=== PATIENT | female | born 1940 | race Caucasian/White ===

== ENCOUNTER 2016-06-16 19:05 | Emergency (ER) | payer OTHER, MEDICAID ==
[2016-06-16 19:06] VITALS: BMI 20.9
[2016-06-16 20:11] VITALS: O2SAT 99
[2016-06-16] MEDS ORDERED: Sodium Chloride 0.9% 500 ML IV ONE ×2 (20:11→20:40)
--- NOTE | 2016-06-16 20:13 | C.PDOC ---
History Of Present Illness 76 y/o female presents to the ED with complains of upper back discomfort for the past 3 days, positionally and digitally reproducible. Pt denies SOB, cough, weakness, numbness, incontinence or any other complaints. Time Seen by Provider: 06/16/16 20:07 Chief Complaint (Nursing): Back Pain History Per: Patient History/Exam Limitations: no limitations Onset/Duration Of Symptoms: Days Current Symptoms Are (Timing): Still Present Severity: Mild Associated Symptoms: None Recent travel outside of the [place]: No Past Medical History Reviewed: Historical Data, Nursing Documentation, Vital Signs Vital Signs: Last Vital Signs Temp 97.8 F 06/16/16 20:00 Pulse 73 06/16/16 20:00 Resp 18 06/16/16 20:00 BP 143/82 06/16/16 20:00 Pulse Ox 99 06/16/16 20:58 - Medical History PMH: Anxiety, Arthritis, Bipolar Disorder, Bronchitis, CAD, Depression, Diabetes , Fractures (L leg), Gastritis, HTN, Peripheral Edema, Pneumonia, Pneumothorax ( effusion) Surgical History: (x 2) - [facility] Procedures CLOSED ENDOSCOPIC BIOPSY OF LARGE INTESTINE (08/31/13) DRAINAGE OF RIGHT LOWER LOBE BRONCHUS, ENDO, DIAGN (08/03/15) DRAINAGE OF RIGHT MIDDLE LOBE BRONCHUS, ENDO, DIAGN (08/03/15) DRAINAGE OF SPINAL CANAL, PERCUTANEOUS APPROACH, DIAGNOSTIC (08/03/15) ESOPHAGOGASTRODUODENOSCOPY [EGD] W/CLOSED BIOPSY (08/31/13) INSERT INTERCOSTAL CATH (03/15/14) INSERTION OF ENDOTRACHEAL AIRWAY INTO TRACHEA, VIA OPENING (08/03/15) INSERTION OF INFUSION DEV INTO SUP VENA CAVA, PERC APPROACH (08/03/15) OTHER PLEURAL INCISION (03/15/14) REMOVAL OF FB NOS (05/25/13) RESPIRATORY VENTILATION, GREATER THAN 96 CONSECUTIVE HOURS (08/03/15) TRANSFUSE NONAUT PLATELETS IN PERIPH VEIN, PERC (08/03/15) Family History: States: Unknown Family Hx - Social History Hx Tobacco Use: No Hx Alcohol Use: No Hx Substance Use: No - Immunization History Hx Tetanus Toxoid Vaccination: No Hx Influenza Vaccination: Yes Hx Pneumococcal Vaccination: Yes Review Of Systems Except As Marked, All Systems Reviewed And Found Negative. Respiratory: Negative for: Cough, Shortness of Breath Genitourinary: Negative for: Incontinence Musculoskeletal: Positive for: Back Pain Neurological: Negative for: Weakness, Numbness Physical Exam - Physical Exam Appears: Non-toxic, No Acute Distress, Other (thin, elderly, appears younger than stated age) Skin: Warm, Dry, No Rash Head: Atraumatic, Normacephalic Neck: Normal ROM, Supple Chest: Symmetrical Cardiovascular: Rhythm Regular, No Murmur Respiratory: Normal Breath Sounds, No Rales, No Rhonchi, No Wheezing Gastrointestinal/Abdominal: Soft Back: No Vertebral Tenderness, Paraspinal Tenderness (bilateral thoracic ) Extremity: Bilateral: Atraumatic Neurological/Psych: Oriented x3, Normal Motor, Normal Sensation ED Course And Treatment - Laboratory Results Result Diagrams: 06/16/16 20:38 06/16/16 20:38 Lab Interpretation: Normal ECG: Interpreted By Me ECG Rhythm: Sinus Rhythm ECG Interpretation: Normal Rate From EC O2 Sat by Pulse Oximetry: 99 (on room air) Pulse Ox Interpretation: Normal - Radiology CXR: Interpreted by Me CXR Interpretation: Yes: No Acute Disease Reevaluation Time: 22:03 Reassessment Condition: Improved Medical Decision Making Medical Decision Making: Plan: EKG, labs, CXR, UA, IV fluids upper thoracic/paraspinal muscular discomfort which is digitally and positionally reproducable normal w/u and labs ok to d/c home with NSAIDS tx PRN Disposition Doctor Will See Patient In The: Office Counseled Patient/Family Regarding: Studies Performed, Diagnosis - Disposition Disposition: HOME/ ROUTINE Disposition Time: 22:03 Condition: GOOD - Clinical Impression Clinical Impression: Thoracic back pain - Scribe Statement The provider has reviewed the documentation as recorded by the Jose Parsons Provider Attestation: All medical record entries made by the Jose were at my direction and personally dictated by me. I have reviewed the chart and agree that the record accurately reflects my personal performance of the history, physical exam, medical decision making, and the department course for this patient. I have also personally directed, reviewed, and agree with the discharge instructions and disposition.
[2016-06-16 20:42] LABS: BASO % 0.9 % (0.0-2.0); EOS # 0.2 K/uL (0.0-0.7); EOS % 5.6 % (0.0-4.0); HEMATOCRIT 33.9 % (34.0-47.0); LYMPH # 1.4 K/uL (1.0-4.3); LYMPH % 37.7 % (20.0-40.0); MEAN CORPUSCULAR HEMOGLOBIN 28.6 pg (27.0-31.0); MEAN CORPUSCULAR HGB CONC 33.3 g/dL (33.0-37.0); MEAN PLATELET VOLUME 8.2 fL (7.2-11.7); MONO # 0.2 K/uL (0.0-0.8); MONO % 5.9 % (0.0-10.0); RED CELL DISTRIBUTION WIDTH 14.6 % (11.5-14.5); WHITE BLOOD COUNT 3.8 K/uL (4.8-10.8)
[2016-06-16 21:01] LABS: RBC URINE < 1 /hpf (0-3); URINE BACTERIA OCC (<OCC); URINE BILIRUBIN NEGATIVE (NEGATIVE); URINE BLOOD NEGATIVE (NEGATIVE); URINE COLOR Yellow (YELLOW); URINE GLUCOSE (UA) NORMAL (Normal); URINE KETONE NEGATIVE (NEGATIVE); URINE LEUKOCYTE ESTERASE TRACE Leu/uL (Negative); URINE PROTEIN NEGATIVE (NEGATIVE); URINE UROBILINOGEN NORMAL mg/dL (0.2-1.0); WBC URINE 8 /hpf (0-5)
[2016-06-16 21:36] LABS: POTASSIUM 4.9 mmol/L (3.6-5.2)
[2016-06-16 21:38] LABS: BILIRUBIN,TOTAL 0.8 mg/dL (0.2-1.3)
[2016-06-16 21:39] LABS: ALB/GLOB RATIO 1.1 (1.0-2.1); CALCIUM 8.9 mg/dl (8.6-10.4); TOTAL PROTEIN 7.7 g/dL (6.3-8.3)
[2016-06-16 21:45] LABS: TROPONIN I 0.023 ng/mL (0.00-0.120)
[2016-06-16 22:17] VITALS: BP 146/70; PULSE 84; RESP 20; TEMP 97.4
--- NOTE | 2016-06-17 08:19 | RAD ---
PROCEDURE: CHEST RADIOGRAPH, 1 VIEW HISTORY: Shortness of breath COMPARISON: None available. FINDINGS: LUNGS: Patchy left basilar airspace opacity. Suggestion of a small left pleural effusion. Mild venous congestion. Upper lobe granulomatous changes. PLEURA: As above. CARDIOVASCULAR: Calcification at the aortic knob. Cardiac valvular calcifications. OSSEOUS STRUCTURES: No significant abnormalities. VISUALIZED UPPER ABDOMEN: Surgical clips in the upper abdomen. OTHER FINDINGS: None. IMPRESSION: Patchy left basilar airspace opacity. Suggestion of a small left pleural effusion. Mild venous congestion. Upper lobe granulomatous changes.
--- NOTE | 2016-06-19 19:49 | CARD ---
APPROVED REPORT EKG Measurement Heart [id number] <Conclusion> Normal sinus rhythm Minimal voltage criteria for LVH, may be normal variant Borderline ECG
== END 2016-06-16 22:18 | disposition home or self-care (01) ==
LOC: C.ER 19:05
DX: M54.6 Pain in thoracic spine (principal)
CPT/HCPCS: 71010; 80053; 81001; 83880; 84484; 85025; 87040; 93005; 96374; 99284; J1885; J7040

== ENCOUNTER 2016-08-19 20:17 | Emergency (ER) | payer OTHER, MEDICAID ==
[2016-08-19 20:17] VITALS: BMI 20.9
--- NOTE | 2016-08-19 20:22 | C.PDOC ---
History Of Present Illness Patient presents to the ED complaining of anxiety. Patient states her upstairs neighbors have been smoking drugs which she feels has been getting into her apartment from the [place]. She reports she has been "feeling weird." Patient denies fever, shortness of breath, rash, suicidal or homicidal ideation. Time Seen by Provider: 08/19/16 20:22 Chief Complaint (Nursing): Psychiatric Evaluation History Per: Patient History/Exam Limitations: no limitations Onset/Duration Of Symptoms: Other Current Symptoms Are (Timing): Still Present Suicide/Self Injury Attempted (Context): None Modifying Factor(s): Other Severity: None Pain Scale Rating Of: 0 Associated Symptoms: Anxiety Recent travel outside of the [place]: No Additional History Per: Patient Past Medical History Reviewed: Historical Data, Nursing Documentation, Vital Signs Vital Signs: Last Vital Signs Temp 98.2 F 08/19/16 20:20 Pulse 80 08/19/16 20:20 Resp 17 08/19/16 20:20 BP 168/82 H 08/19/16 20:20 Pulse Ox 99 08/19/16 21:27 - Medical History PMH: Anxiety, Arthritis, Bipolar Disorder, Bronchitis, CAD, Depression, Diabetes , Fractures (L leg), Gastritis, HTN, Peripheral Edema, Pneumonia, Pneumothorax ( effusion) Surgical History: (x 2) - [facility] Procedures CLOSED ENDOSCOPIC BIOPSY OF LARGE INTESTINE (08/31/13) DRAINAGE OF RIGHT LOWER LOBE BRONCHUS, ENDO, DIAGN (08/03/15) DRAINAGE OF RIGHT MIDDLE LOBE BRONCHUS, ENDO, DIAGN (08/03/15) DRAINAGE OF SPINAL CANAL, PERCUTANEOUS APPROACH, DIAGNOSTIC (08/03/15) ESOPHAGOGASTRODUODENOSCOPY [EGD] W/CLOSED BIOPSY (08/31/13) INSERT INTERCOSTAL CATH (03/15/14) INSERTION OF ENDOTRACHEAL AIRWAY INTO TRACHEA, VIA OPENING (08/03/15) INSERTION OF INFUSION DEV INTO SUP VENA CAVA, PERC APPROACH (08/03/15) OTHER PLEURAL INCISION (03/15/14) REMOVAL OF FB NOS (05/25/13) RESPIRATORY VENTILATION, GREATER THAN 96 CONSECUTIVE HOURS (08/03/15) TRANSFUSE NONAUT PLATELETS IN PERIPH VEIN, PERC (08/03/15) Family History: States: Unknown Family Hx - Social History Hx Tobacco Use: No Hx Alcohol Use: No Hx Substance Use: No - Immunization History Hx Tetanus Toxoid Vaccination: No Hx Influenza Vaccination: Yes Hx Pneumococcal Vaccination: Yes Review Of Systems Constitutional: Negative for: Fever Respiratory: Negative for: Shortness of Breath Skin: Negative for: Rash Psych: Positive for: Anxiety. Negative for: Suicidal ideation Physical Exam - Physical Exam Appears: Non-toxic, No Acute Distress Skin: Warm, Dry Head: Atraumatic, Normacephalic Neck: Supple Chest: Symmetrical Cardiovascular: Rhythm Regular Respiratory: No Rales, No Rhonchi, No Wheezing Gastrointestinal/Abdominal: Soft, No Tenderness Back: No CVA Tenderness Extremity: Bilateral: Atraumatic, Normal Color And Temperature Neurological/Psych: Oriented x3 ED Course And Treatment - Laboratory Results Result Diagrams: 08/19/16 20:55 08/19/16 20:55 ECG: Interpreted By Me, Viewed By Me ECG Rhythm: Sinus Rhythm (77), Nonspecific Changes O2 Sat by Pulse Oximetry: 99 (room air) Pulse Ox Interpretation: Normal Progress Note: Plan: Labs, EKG, Chest x-ray Disposition Counseled Patient/Family Regarding: Studies Performed, Diagnosis, Need For Followup - Disposition Referrals: Westley Hall MD [Staff Provider] - Disposition: HOME/ ROUTINE Disposition Time: 20:22 Condition: FAIR Instructions: Anxiety (ED) - Clinical Impression Clinical Impression: Anxiety - Scribe Statement The provider has reviewed the documentation as recorded by the Scribe Shana Cabrera Provider Attestation: All medical record entries made by the Scribe were at my direction and personally dictated by me. I have reviewed the chart and agree that the record accurately reflects my personal performance of the history, physical exam, medical decision making, and the department course for this patient. I have also personally directed, reviewed, and agree with the discharge instructions and disposition.
[2016-08-19 20:23] VITALS: TEMP 98.2
[2016-08-19 21:00] LABS: EOS # 0.2 K/uL (0.0-0.7); HEMATOCRIT 33.5 % (34.0-47.0); LYMPH # 0.9 K/uL (1.0-4.3); MONO # 0.2 K/uL (0.0-0.8); NRBC % 0.1 % (0.0-2.0); WHITE BLOOD COUNT 2.7 K/uL (4.8-10.8)
[2016-08-19 21:04] LABS: BASO % 1.1 % (0.0-2.0); EOS % 6.6 % (0.0-4.0); LYMPH % 32.4 % (20.0-40.0); MEAN CELL VOLUME 86.3 fL (81.0-99.0); MEAN CORPUSCULAR HEMOGLOBIN 28.6 pg (27.0-31.0); MEAN CORPUSCULAR HGB CONC 33.1 g/dL (33.0-37.0); MEAN PLATELET VOLUME 8.2 fL (7.2-11.7); MONO % 6.3 % (0.0-10.0); RED CELL DISTRIBUTION WIDTH 13.9 % (11.5-14.5)
[2016-08-19 21:06] LABS: CHLORIDE 98 mmol/L (98-107); POTASSIUM 4.5 mmol/L (3.6-5.2); SODIUM 134 mmol/L (132-148)
[2016-08-19 21:07] LABS: TRANSITIONAL EPITHIAL < 1 /hpf (0-3); URINE BACTERIA RARE (<OCC); URINE BILIRUBIN NEGATIVE (NEGATIVE); URINE BLOOD NEGATIVE (NEGATIVE); URINE COLOR Yellow (YELLOW); URINE GLUCOSE (UA) NORMAL (Normal); URINE KETONE NEGATIVE (NEGATIVE); URINE LEUKOCYTE ESTERASE 2+ Leu/uL (Negative); URINE PROTEIN NEGATIVE (NEGATIVE); URINE UROBILINOGEN NORMAL mg/dL (0.2-1.0); WBC URINE 13 /hpf (0-5)
[2016-08-19 21:08] LABS: AST/SGOT 61 U/L (14-36); BILIRUBIN,TOTAL 0.7 mg/dL (0.2-1.3); CARBON DIOXIDE 28 mmol/L (22-30); GFR AFRICAN-AMERICAN 59
[2016-08-19 21:09] LABS: ALB/GLOB RATIO 1.2 (1.0-2.1); ALKALINE PHOSPHATASE 153 U/L (38-126); ALT/SGPT 46 U/L (9-52); BLOOD UREA NITROGEN 24 mg/dL (7-17); CALCIUM 8.4 mg/dl (8.6-10.4); GLUCOSE,RANDOM 247 mg/dL (65-105); TOTAL PROTEIN 6.8 g/dL (6.3-8.3)
[2016-08-19 21:55] LABS: ALCOHOL SERUM < 10 mg/dl (0-10)
[2016-08-19 23:30] VITALS: BP 134/76; PULSE 78; RESP 20; O2SAT 97
--- NOTE | 2016-08-20 09:13 | RAD ---
PROCEDURE: CHEST RADIOGRAPH, 1 VIEW HISTORY: Detox/Psy COMPARISON: 06/16/2016 FINDINGS: LUNGS: Mild venous congestion. Biapical pleural thickening with upper lobe granulomatous changes. Chronic interstitial lung markings. Bibasilar patchy airspace opacities. Small nodular density in the right mid lung zone. PLEURA: As above. CARDIOVASCULAR: Calcification of the aortic knob OSSEOUS STRUCTURES: Degenerative changes in the spine and shoulders. VISUALIZED UPPER ABDOMEN: Normal. OTHER FINDINGS: None. IMPRESSION: Mild venous congestion. Biapical pleural thickening. Bilateral upper lobe granulomatous changes. Chronic interstitial lung markings. Bibasilar patchy airspace opacities. Small nodular density in the right mid lung zone.
--- NOTE | 2016-08-24 21:21 | CARD ---
APPROVED REPORT EKG Measurement Heart [id number] ND [id number] <Conclusion> Normal sinus rhythm Normal ECG
== END 2016-08-19 23:00 | disposition home or self-care (01) ==
LOC: C.ER 20:17
DX: F41.9 Anxiety disorder, unspecified (principal)
CPT/HCPCS: 71010; 80053; 81001; 85025; 93005; 99283; G0480

== ENCOUNTER 2016-08-23 12:22 | Emergency (ER) | payer OTHER, MEDICAID ==
[2016-08-23 12:22] VITALS: BMI 20.9
--- NOTE | 2016-08-23 13:25 | C.PDOC ---
History Of Present Illness Patient is a 76 y/o female that presents to the emergency department for evaluation of left knee pain, back pain, and associated headache s/p fall this morning. Pt states she slipped, and fell in the bathtub at 11:00am today. Otherwise, denies any LOC, dizziness, extremity weakness/numbness, chest pain or any other associated symptoms at this time. Time Seen by Provider: 08/23/16 12:52 Chief Complaint (Nursing): Back Pain History Per: Patient, Family History/Exam Limitations: language barrier (translated from Korean by pt's daughter) Onset/Duration Of Symptoms: Hrs Current Symptoms Are (Timing): Still Present Quality Of Discomfort: "Pain" Previous Symptoms: None Associated Symptoms: None. denies: Incontinence, New Weakness, New Numbness Exacerbating Factor(s): Nothing Recent travel outside of the [place]: No Additional History Per: Patient Past Medical History Reviewed: Historical Data, Nursing Documentation, Vital Signs Vital Signs: Last Vital Signs Temp 98.3 F 08/23/16 16:30 Pulse 88 08/23/16 16:30 Resp 18 08/23/16 16:30 BP 138/76 08/23/16 16:30 Pulse Ox 99 08/23/16 16:42 - Medical History PMH: Anxiety, Arthritis, Bipolar Disorder, Bronchitis, CAD, Depression, Diabetes , Fractures (L leg), Gastritis, HTN, Peripheral Edema, Pneumonia, Pneumothorax ( effusion) Denies: Anemia, Atrial Fibrillation, Cardia Arrhythmia, CHF, HIV, Hypercholesterolemia, Hyperthyroidism, Hypothyroidism, Mitral Valve Prolapse, Osteoporosis, Chronic Kidney Disease, Rheumatoid Arthritis, Sickle Cell Disease , Sexually Transmitted Disease Surgical History: (x 2) Denies: Pacemaker - [facility] Procedures CLOSED ENDOSCOPIC BIOPSY OF LARGE INTESTINE (08/31/13) DRAINAGE OF RIGHT LOWER LOBE BRONCHUS, ENDO, DIAGN (08/03/15) DRAINAGE OF RIGHT MIDDLE LOBE BRONCHUS, ENDO, DIAGN (08/03/15) DRAINAGE OF SPINAL CANAL, PERCUTANEOUS APPROACH, DIAGNOSTIC (08/03/15) ESOPHAGOGASTRODUODENOSCOPY [EGD] W/CLOSED BIOPSY (08/31/13) INSERT INTERCOSTAL CATH (03/15/14) INSERTION OF ENDOTRACHEAL AIRWAY INTO TRACHEA, VIA OPENING (08/03/15) INSERTION OF INFUSION DEV INTO SUP VENA CAVA, PERC APPROACH (08/03/15) OTHER PLEURAL INCISION (03/15/14) REMOVAL OF FB NOS (05/25/13) RESPIRATORY VENTILATION, GREATER THAN 96 CONSECUTIVE HOURS (08/03/15) TRANSFUSE NONAUT PLATELETS IN PERIPH VEIN, PERC (08/03/15) Family History: States: Unknown Family Hx - Social History Hx Tobacco Use: No Hx Alcohol Use: No Hx Substance Use: No - Immunization History Hx Tetanus Toxoid Vaccination: No Hx Influenza Vaccination: Yes Hx Pneumococcal Vaccination: Yes Review Of Systems Except As Marked, All Systems Reviewed And Found Negative. Constitutional: Negative for: Fever, Chills Cardiovascular: Negative for: Chest Pain, Palpitations Respiratory: Negative for: Shortness of Breath Gastrointestinal: Negative for: Nausea, Vomiting, Abdominal Pain Musculoskeletal: Positive for: Back Pain, Leg Pain (left knee pain) Neurological: Positive for: Headache. Negative for: Weakness, Numbness, Dizziness Physical Exam - Physical Exam Appears: Non-toxic, No Acute Distress Skin: Normal Color, Warm, Dry, No Other (no lacerations) Head: Atraumatic, Normacephalic Eye(s): bilateral: Normal Inspection, EOMI Neck: Normal ROM, Supple Chest: Symmetrical, No Tenderness Cardiovascular: Rhythm Regular, No Murmur Respiratory: Normal Breath Sounds, No Rales, No Rhonchi, No Wheezing Gastrointestinal/Abdominal: Soft, No Tenderness Back: No CVA Tenderness, Vertebral Tenderness (from cervical spine to coccyx), No Paraspinal Tenderness Extremity: Normal ROM, Tenderness, Capillary Refill (< 2 sec.), No Deformity, No Swelling Extremity: Bilateral: Normal Color And Temperature, Normal ROM Pulses: Left Dorsalis Pedis: Normal, Right Dorsalis Pedis: Normal Neurological/Psych: Oriented x3, Normal Speech, Normal Cognition, Normal Motor, Normal Sensation ED Course And Treatment O2 Sat by Pulse Oximetry: 99 (on RA) Pulse Ox Interpretation: Normal - Other Rad sascrum & coccyx x-ray X-Ray: Interpreted by Me, Viewed By Me Interpretation: Coccyx fracture Left knee x-ray X-Ray: Interpreted by Me, Viewed By Me Interpretation: No acute fracture or dislocation. dorsal spine X-Ray: Interpreted by Me, Viewed By Me Interpretation: no acute fx or dislocation - CT Scan/US Head CT Other Rad Studies (CT/US): Read By Radiologist, Radiology Report Reviewed CT/US Interpretation: FINDINGS: HEMORRHAGE: No acute intracranial hemorrhage. BRAIN: Mild chronic periventricular white matter ischemic changes. Moderate atrophy. Minor vascular calcifications both carotid siphons. VENTRICLES: No evidence of obstructive type hydrocephalus. CALVARIUM: Unremarkable. Calvarium is intact. PARANASAL SINUSES: Unremarkable as visualized. No significant inflammatory changes. MASTOID AIR CELLS: Unremarkable as visualized. No inflammatory changes. OTHER FINDINGS: Changes of left-sided cataract surgery. IMPRESSION: No acute intracranial hemorrhage. Mild chronic white matter ischemic changes. Moderate volume loss. Cervical spine CT Other Rad Studies (CT/US): Read By Radiologist, Radiology Report Reviewed CT/US Interpretation: FINDINGS: VERTEBRAE: No acute compression fractures no retropulsed fragments. Vertebral bodies exhibit relatively normal stature aside from mild multilevel fish-mouth endplate deformities. The very slight anterior subluxation C5 over C6. Vertebral bodies otherwise exhibit normal alignment. Facets normally aligned. TheNo fracture. Normal alignment. No destructive bony lesion. DISCS/SPINAL CANAL/NEURAL FORAMINA: Mild multilevel degenerative spondylosis. Disc space heights are relatively maintained however there are mild chronic appearing Schmorl's nodes and fish-mouth endplate deformities seen at several levels. Small broad-based disc bulge assess with the tiny calcification either in the posterior annulus of the posterior longitudinal ligament C5-C6 level that results in some compression of the ventral surface of the thecal sac and cord. The overall central canal does appear adequate however. Facet joints are mildly hypertrophic at on with minimal degenerative squaring of the uncovertebral joints left greater than right. Left exit foramen appears narrowed. Right exit foramen is adequate. There is small central and bilateral disc bulge at the C4-C5 level that also contains exhibits some minor calcification along the posterior annulus and/or posterior longitudinal ligament. The disc of flattens the ventral surface of the thecal sac though does not cause any significant canal compromise nor cord compression. Note also made of what appears represent a small amount of intradiscal calcification at the C3-C4 level. PARASPINAL SOFT TISSUES: Unremarkable. OTHER FINDINGS: Lung apices are clear. Thyroid gland is heterogeneous in appearance with what may represent the least 1 discrete nodule right lobe thyroid gland. Recommend followup thyroid ultrasound findings. IMPRESSION: No acute fractures. Mild multilevel degenerative spondylosis. Heterogeneous thyroid gland with questionable nodule right lobe thyroid. Recommend followup nonemergent thyroid ultrasound. Progress Note: Cervical spine/head CT, LS spine/sascrum & coccyx/dorsal thoracic spine x-ray ordered and reviewed. Pt was given Tylenol in the ER. Reassessment Condition: Improved Medical Decision Making Medical Decision Making: Case discussed with Dr. Hall, who recommended to d/c pt home and he will f/u on Thursday in the office. Disposition Counseled Patient/Family Regarding: Studies Performed, Diagnosis, Need For Followup, Rx Given - Disposition Referrals: Westley Hall MD [Staff Provider] - Disposition: HOME/ ROUTINE Disposition Time: 16:33 Condition: STABLE Additional Instructions: FOLLOW UP WITH [facility]D ON THURSDAY FOR OFFICIAL XRAY REPORTS AND FURTHER EVALUATION OF THYROID NODULE. TAKE IBUPROFEN 400 MG EVERY 6 HRS WITH FOOD NEEDED FOR PAIN. IF SYMPTOMS GET WORSE OR ANY NEW CONCERNING SYMPTOMS DEVELOP RETURN TO ED. Prescriptions: Docusate [Colace] 1 cap PO TID #30 cap Instructions: Knee Sprain (ED), Coccyx Injury (ED), Thyroid Nodules (ED), Fall Prevention (ED) Forms: Gen Discharge Inst Korean Print Language: PALESTINIAN - Clinical Impression Clinical Impression: Thyroid nodule, Fracture of coccyx, Headache, Spine pain, multilevel - PA / BOTTOM FILLER / Resident Statement MD/DO has reviewed & agrees with the documentation as recorded. - Scribe Statement The provider has reviewed the documentation as recorded by the Davidibester Cabrera All medical record entries made by the Davidibester were at my direction and personally dictated by me. I have reviewed the chart and agree that the record accurately reflects my personal performance of the history, physical exam, medical decision making, and the department course for this patient. I have also personally directed, reviewed, and agree with the discharge instructions and disposition.
--- NOTE | 2016-08-23 16:03 | CT ---
PROCEDURE: CT HEAD WITHOUT CONTRAST. HISTORY: PAIN P FALL COMPARISON: Comparison made with CT scan brain 08/09/2015. TECHNIQUE: Axial computed tomography images were obtained through the head/brain without intravenous contrast. Radiation dose: Total exam DLP = 813.06 mGy-cm. This CT exam was performed using one or more of the following dose reduction techniques: Automated exposure control, adjustment of the mA and/or kV according to patient size, and/or use of iterative reconstruction technique. FINDINGS: HEMORRHAGE: No acute intracranial hemorrhage. BRAIN: Mild chronic periventricular white matter ischemic changes. Moderate atrophy. Minor vascular calcifications both carotid siphons. VENTRICLES: No evidence of obstructive type hydrocephalus CALVARIUM: Unremarkable. Calvarium is intact. PARANASAL SINUSES: Unremarkable as visualized. No significant inflammatory changes. MASTOID AIR CELLS: Unremarkable as visualized. No inflammatory changes. OTHER FINDINGS: Changes of left-sided cataract surgery IMPRESSION: No acute intracranial hemorrhage. Mild chronic white matter ischemic changes. Moderate volume loss.
--- NOTE | 2016-08-23 16:13 | CT ---
PROCEDURE: CT Cervical Spine without contrast HISTORY: <PAIN P FALL> COMPARISON: None available. TECHNIQUE: Axial computed tomography images were obtained of the cervical spine without the use of intravenous contrast. Coronal and sagittal reformatted images were created and reviewed. Radiation dose: Total exam DLP = 272.02 mGy-cm. This CT exam was performed using one or more of the following dose reduction techniques: Automated exposure control, adjustment of the mA and/or kV according to patient size, and/or use of iterative reconstruction technique. FINDINGS: VERTEBRAE: No acute compression fractures no retropulsed fragments. Vertebral bodies exhibit relatively normal stature aside from mild multilevel fish-mouth endplate deformities. The very slight anterior subluxation C5 over C6. Vertebral bodies otherwise exhibit normal alignment. Facets normally aligned. TheNo fracture. Normal alignment. No destructive bony lesion. DISCS/SPINAL CANAL/NEURAL FORAMINA: Mild multilevel degenerative spondylosis. Disc space heights are relatively maintained however there are mild chronic appearing Schmorl's nodes and fish-mouth endplate deformities seen at several levels. Small broad-based disc bulge assess with the tiny calcification either in the posterior annulus of the posterior longitudinal ligament C5-C6 level that results in some compression of the ventral surface of the thecal sac and cord. The overall central canal does appear adequate however. Facet joints are mildly hypertrophic at on with minimal degenerative squaring of the uncovertebral joints left greater than right. Left exit foramen appears narrowed. Right exit foramen is adequate. There is small central and bilateral disc bulge at the C4-C5 level that also contains exhibits some minor calcification along the posterior annulus and/or posterior longitudinal ligament. The disc of flattens the ventral surface of the thecal sac though does not cause any significant canal compromise nor cord compression. Note also made of what appears represent a small amount of intradiscal calcification at the C3-C4 level. PARASPINAL SOFT TISSUES: Unremarkable. OTHER FINDINGS: Lung apices are clear. Thyroid gland is heterogeneous in appearance with what may represent the least 1 discrete nodule right lobe thyroid gland. Recommend followup thyroid ultrasound findings IMPRESSION: No acute fractures. Mild multilevel degenerative spondylosis Heterogeneous thyroid gland with questionable nodule right lobe thyroid. Recommend followup nonemergent thyroid ultrasound.
[2016-08-23 16:31] VITALS: BP 138/76; PULSE 88; RESP 18; TEMP 98.3
[2016-08-23 16:37] VITALS: O2SAT 99
--- NOTE | 2016-08-23 18:58 | RAD ---
HISTORY: PAIN P FALL COMPARISON: No prior. FINDINGS: BONES: No evidence of acute compression fractures. Mild increase kyphosis. . There is also very subtle subclinical dextroscoliosis DISC SPACES: Mild multilevel degenerative spondylosis. Mild disc space narrowing with small endplate eburnation and small marginal anterolateral osteophyte formation. SOFT TISSUES: Normal. OTHER FINDINGS: None. IMPRESSION: No acute fracture seen. Mild multilevel degenerative spondylosis if symptoms persist or occult fracture suspected clinically recommend followup CT scan
--- NOTE | 2016-08-23 19:03 | RAD ---
PROCEDURE: Radiographs of the Lumbar Spine. HISTORY: PAIN P FALL COMPARISON: No prior. FINDINGS: BONES: No evidence of acute compression fractures nor retropulsed fragments lumbar spine. Note however the possibility of a coccygeal fracture cannot be excluded. Consider followup CT scan if necessary. Vertebral bodies exhibit relatively normal stature. Mild levoscoliosis centered at the L2-L3 level. DISC SPACES: Disc space heights are maintained. Marginal anterolateral small osteophytes are seen at several levels. Facet joints also hypertrophic L5-S1 through the L3-L4 levels in decreasing order of severity . OTHER FINDINGS: Metallic clips right upper quadrant of the abdomen consistent prior cholecystectomy. Vascular calcifications abdominal aorta and iliac arteries ORIF hardware left hip IMPRESSION: No acute fracture of the lumbar spine. The possibility of a coccygeal fracture cannot be excluded. Consider followup CT scan of the lumbar spine. . Mild multilevel degenerative spondylosis. Note this report was placed in PA review folder for followup
--- NOTE | 2016-08-23 19:05 | RAD ---
PROCEDURE: Left Knee Radiographs. HISTORY: Pain. COMPARISON: Comparison made with prior radiographs of the left knee 08/23/2016. FINDINGS: BONES: No definite radiographic evidence of acute displaced fracture nor dislocation. The osseous structures appear intact JOINTS: . Joint space is relatively preserved. Tiny anterior superior patella enthesophyte JOINT EFFUSION: None. OTHER FINDINGS: None. IMPRESSION: No fracture seen. If symptoms persist or occult fracture suspected clinically recommend repeat radiographs in 5-10 days as most fractures should become radiographically.
--- NOTE | 2016-08-23 19:09 | RAD ---
PROCEDURE: Radiographs of the Sacrum and Coccyx HISTORY: PAIN P FALL COMPARISON: None available. TECHNIQUE: Frontal and lateral views of the sacrum and coccyx FINDINGS: BONES: Possibility of a fracture of the tip of the coccyx not excluded. SACROILIAC JOINTS: Unremarkable. OTHER FINDINGS: None. IMPRESSION: Fracture tip of the coccyx not excluded. Consider followup CT scan if further evaluation is required note this report was placed in PA review folder for followup. Will
== END 2016-08-23 17:08 | disposition home or self-care (01) ==
LOC: C.ER 12:22
DX: S32.2XXA Fracture of coccyx, initial encounter for closed fracture (principal); W18.2XXA Fall in (into) shower or empty bathtub, initial encounter; R51 Headache; E04.1 Nontoxic single thyroid nodule; M54.89 Other dorsalgia

== ENCOUNTER 2016-11-06 22:38 | Inpatient (IN) | payer OTHER, MEDICAID ==
[2016-11-06 22:38] VITALS: BMI 20.9
[2016-11-06 23:03] VITALS: RESP 20
--- NOTE | 2016-11-06 23:59 | C.PDOC ---
History Of Present Illness 76 y/o female c/o low blood sugar that started tonight. Notes after eating her blood sugar went up, but went back down after. Denies fever, chills, chest pain , SOB, dizziness, headache, or abdominal pain. Time Seen by Provider: 11/06/16 23:59 Chief Complaint (Nursing): Weakness/Neurological Deficit History Per: Patient History/Exam Limitations: no limitations Onset/Duration Of Symptoms: Hrs Current Symptoms Are (Timing): Still Present Seizure Or Post-ictal Symptoms: None Fall Associated With With Symptoms: No Severity: Mild Recent travel outside of the [place]: No Additional History Per: Patient Past Medical History Reviewed: Historical Data, Nursing Documentation, Vital Signs Vital Signs: Last Vital Signs Temp 98 F 11/06/16 22:59 Pulse 85 11/06/16 22:59 Resp 20 11/06/16 22:59 BP 132/77 11/06/16 22:59 Pulse Ox 99 11/07/16 01:03 - Medical History PMH: Anxiety, Arthritis, Bipolar Disorder, Bronchitis, CAD, Depression, Diabetes , Fractures (L leg), Gastritis, HTN, Peripheral Edema, Pneumonia, Pneumothorax ( effusion) Denies: Anemia, Atrial Fibrillation, Cardia Arrhythmia, CHF, HIV, Hypercholesterolemia, Hyperthyroidism, Hypothyroidism, Mitral Valve Prolapse, Osteoporosis, Chronic Kidney Disease, Rheumatoid Arthritis, Sickle Cell Disease , Sexually Transmitted Disease Surgical History: (x 2) Denies: Pacemaker - [facility] Procedures CLOSED ENDOSCOPIC BIOPSY OF LARGE INTESTINE (08/31/13) DRAINAGE OF RIGHT LOWER LOBE BRONCHUS, ENDO, DIAGN (08/03/15) DRAINAGE OF RIGHT MIDDLE LOBE BRONCHUS, ENDO, DIAGN (08/03/15) DRAINAGE OF SPINAL CANAL, PERCUTANEOUS APPROACH, DIAGNOSTIC (08/03/15) ESOPHAGOGASTRODUODENOSCOPY [EGD] W/CLOSED BIOPSY (08/31/13) INSERT INTERCOSTAL CATH (03/15/14) INSERTION OF ENDOTRACHEAL AIRWAY INTO TRACHEA, VIA OPENING (08/03/15) INSERTION OF INFUSION DEV INTO SUP VENA CAVA, PERC APPROACH (08/03/15) OTHER PLEURAL INCISION (03/15/14) REMOVAL OF FB NOS (05/25/13) RESPIRATORY VENTILATION, GREATER THAN 96 CONSECUTIVE HOURS (08/03/15) TRANSFUSE NONAUT PLATELETS IN PERIPH VEIN, PERC (08/03/15) Family History: States: Unknown Family Hx - Social History Hx Tobacco Use: No Hx Alcohol Use: No Hx Substance Use: No - Immunization History Hx Tetanus Toxoid Vaccination: No Hx Influenza Vaccination: Yes Hx Pneumococcal Vaccination: Yes Review Of Systems Constitutional: Positive for: Weakness, Other (Low blood sugar). Negative for: Fever, Chills Eyes: Negative for: Redness Cardiovascular: Negative for: Chest Pain, Palpitations Respiratory: Negative for: Shortness of Breath Gastrointestinal: Negative for: Abdominal Pain Genitourinary: Negative for: Hematuria Musculoskeletal: Negative for: Back Pain Skin: Negative for: Rash, Lesions Neurological: Negative for: Headache, Dizziness Psych: Negative for: Anxiety Physical Exam - Physical Exam Appears: Non-toxic, No Acute Distress Skin: Warm, Dry Head: Normacephalic Eye(s): bilateral: Normal Inspection Oral Mucosa: Dry Throat: Normal, No Erythema, No Exudate Neck: Trachea Midline, Supple Cardiovascular: Rhythm Regular Respiratory: No Rales, No Rhonchi, No Wheezing Gastrointestinal/Abdominal: Soft, No Tenderness Back: No CVA Tenderness Extremity: No Tenderness, No Calf Tenderness Extremity: Bilateral: Atraumatic Pulses: Left Dorsalis Pedis: Normal, Right Dorsalis Pedis: Normal Neurological/Psych: Oriented x3 (Awake and alert), Normal Speech, Normal Cognition Gait: Steady ED Course And Treatment - Laboratory Results Result Diagrams: 11/07/16 00:53 11/07/16 00:53 O2 Sat by Pulse Oximetry: 99 (RA) Pulse Ox Interpretation: Normal Disposition Discussed With DrIsaac: Francis Morejon Comment: accepted the pt on his service and took over the care at 1:31 AM Doctor Will See Patient In The: Hospital Counseled Patient/Family Regarding: Studies Performed, Diagnosis - Disposition Disposition: HOSPITALIZED Disposition Time: 23:59 Condition: FAIR Forms: [facility] ([place]) - POA Present On Arrival: Poor Glycemic Control - Clinical Impression Clinical Impression: Hyperglycemia, UTI (urinary tract infection) - Scribe Statement The provider has reviewed the documentation as recorded by the Scribe Parvin esparza All medical record entries made by the Scribe were at my direction and personally dictated by me. I have reviewed the chart and agree that the record accurately reflects my personal performance of the history, physical exam, medical decision making, and the department course for this patient. I have also personally directed, reviewed, and agree with the discharge instructions and disposition. Decision To Admit - Pt Status Changed To: Hospital Disposition Of: Observation - . Bed Request Type: Regular Admitting Physician: Francis Morejon Patient Diagnosis: Hyperglycemia, UTI (urinary tract infection)
[2016-11-07 00:56] LABS: EOS # 0.1 K/uL (0.0-0.7); HEMATOCRIT 33.5 % (34.0-47.0); LYMPH # 0.8 K/uL (1.0-4.3); MONO # 0.3 K/uL (0.0-0.8); NRBC % 0.1 % (0.0-2.0); RED CELL DISTRIBUTION WIDTH 14.5 % (11.5-14.5); WHITE BLOOD COUNT 2.9 K/uL (4.8-10.8)
[2016-11-07 01:01] LABS: BASO % 0.8 % (0.0-2.0); EOS % 3.2 % (0.0-4.0); LYMPH % 28.2 % (20.0-40.0); MEAN CELL VOLUME 85.2 fL (81.0-99.0); MEAN CORPUSCULAR HEMOGLOBIN 27.5 pg (27.0-31.0); MEAN CORPUSCULAR HGB CONC 32.3 g/dL (33.0-37.0)
[2016-11-07 01:02] LABS: VENOUS BLOOD GAS BASE EXCESS 4.5 mmol/L (0.0-2.0); VENOUS BLOOD GAS PCO2 54 mmHg (40-60); VENOUS BLOOD PH 7.37 (7.32-7.43)
[2016-11-07 01:04] LABS: CHLORIDE 100 mmol/L (98-107); POTASSIUM 5.2 mmol/L (3.6-5.2); SODIUM 135 mmol/L (132-148)
[2016-11-07 01:06] LABS: BILIRUBIN,TOTAL 0.8 mg/dL (0.2-1.3); GFR AFRICAN-AMERICAN > 60
[2016-11-07 01:07] LABS: ALB/GLOB RATIO 1.1 (1.0-2.1); ALKALINE PHOSPHATASE 160 U/L (38-126); ALT/SGPT 51 U/L (9-52); AST/SGOT 63 U/L (14-36); BLOOD UREA NITROGEN 25 mg/dL (7-17); CARBON DIOXIDE 27 mmol/L (22-30); GLUCOSE,RANDOM 128 mg/dL (65-105); TOTAL PROTEIN 7.1 g/dL (6.3-8.3)
[2016-11-07 01:08] LABS: CALCIUM 9.3 mg/dl (8.6-10.4)
[2016-11-07 01:12] LABS: RBC URINE < 1 /hpf (0-3); URINE BILIRUBIN NEGATIVE (NEGATIVE); URINE BLOOD NEGATIVE (NEGATIVE); URINE COLOR Yellow (YELLOW); URINE GLUCOSE (UA) NORMAL (Normal); URINE KETONE NEGATIVE (NEGATIVE); URINE LEUKOCYTE ESTERASE 3+ Leu/uL (Negative); URINE PROTEIN NEGATIVE (NEGATIVE); URINE UROBILINOGEN NORMAL mg/dL (0.2-1.0); WBC URINE 11 /hpf (0-5)
[2016-11-07] MEDS ORDERED: Piperacillin/Tazobact 3.375 gm 100 ML IVPB STA (01:32)
[2016-11-07] MEDS ORDERED: (Novolin 70/30) NPH/Regular 70/30 Units/ml 10 ml vial SC SCH (07:30)
[2016-11-07] MEDS ORDERED: (Novolin R) Insulin Human Regular 100 units/ml vial SC SCH ×2 (07:30→16:30)
[2016-11-07] MEDS ORDERED: Home Med 1 UNIT (Methylprednisolone [Medrol Dose Pack (21 Tabs)] 4 MG) PO SCH (10:00)
[2016-11-07] MEDS: Pantoprazole 40 mg EC Tab PO SCH (10:04)
[2016-11-07] MEDS: Ergocalciferol 50,000 Intl Units Cap PO SCH (10:04)
[2016-11-07] MEDS: Lactobacillus Acidophilus 500 MU Cap PO SCH ×2 (10:05→18:47)
[2016-11-07] MEDS: Enoxaparin 30 mg Syringe SC SCH (10:05)
[2016-11-07] MEDS: Magnesium Chloride 64 mg ER Tab PO SCH ×3 (10:05→18:46)
[2016-11-07] MEDS: Piperacillin/Tazobact 3.375 GM in Sodium Chloride 0.9% 100 ML IVPB SCH ×2 (14:33→21:24)
[2016-11-07] MEDS ORDERED: (Lantus) Insulin Glargine, Recombinant SC SCH (22:00)
[2016-11-07] MEDS ORDERED: (Novolin 70/30) NPH/Regular 70/30 Units/ml 10 ml vial SC ONE (23:10)
[2016-11-07] MEDS ORDERED: (Novolog) Insulin Aspart, Recombinant 100 u/ml 10 ml vial SC STA (23:33)
[2016-11-07] MEDS ORDERED: Sodium Chloride 0.9% 250 ML IV ONE (23:34)
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
[2016-11-08] MEDS: Piperacillin/Tazobact 3.375 GM in Sodium Chloride 0.9% 100 ML IVPB SCH ×3 (05:05→21:16)
[2016-11-08] MEDS: (Novolin 70/30) NPH/Regular 70/30 Units/ml 10 ml vial SC SCH ×2 (07:51→20:04)
[2016-11-08] MEDS: (Novolog) Insulin Aspart, Recombinant 100 u/ml 10 ml vial SC SCH ×6 (07:51→21:24)
[2016-11-08 08:26] LABS: BASO % 0.6 % (0.0-2.0); EOS # 0.1 K/uL (0.0-0.7); EOS % 1.8 % (0.0-4.0); HEMATOCRIT 32.9 % (34.0-47.0); LYMPH # 0.9 K/uL (1.0-4.3); MEAN CELL VOLUME 86.1 fL (81.0-99.0); MEAN CORPUSCULAR HEMOGLOBIN 28.7 pg (27.0-31.0); MEAN CORPUSCULAR HGB CONC 33.3 g/dL (33.0-37.0); MEAN PLATELET VOLUME 8.3 fL (7.2-11.7); MONO # 0.3 K/uL (0.0-0.8); MONO % 7.4 % (0.0-10.0); NRBC % 0.1 % (0.0-2.0); WHITE BLOOD COUNT 3.9 K/uL (4.8-10.8)
[2016-11-08 08:40] LABS: POTASSIUM 3.9 mmol/L (3.6-5.2)
[2016-11-08 08:42] LABS: BILIRUBIN,TOTAL 0.8 mg/dL (0.2-1.3); CALCIUM 8.7 mg/dl (8.6-10.4); TOTAL PROTEIN 6.7 g/dL (6.3-8.3)
[2016-11-08] MEDS: Pantoprazole 40 mg EC Tab PO SCH (09:58)
[2016-11-08] MEDS: Magnesium Chloride 64 mg ER Tab PO SCH ×2 (09:59→17:40)
[2016-11-08] MEDS: Lactobacillus Acidophilus 500 MU Cap PO SCH ×2 (09:59→17:40)
[2016-11-08] MEDS: Enoxaparin 30 mg Syringe SC SCH (10:00)
[2016-11-08] MEDS ORDERED: (Novolog) Insulin Aspart, Recombinant 100 u/ml 10 ml vial SC SCH (12:21)
[2016-11-08] MEDS ORDERED: Sodium Chloride 0.9% 250 ML IV ONE (12:23)
[2016-11-08] MEDS ORDERED: (Novolin 70/30) NPH/Regular 70/30 Units/ml 10 ml vial SC SCH ×2 (20:27→23:05)
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
[2016-11-08] MEDS: (Novolin N) Insulin Human Isophane (NPH) 100 u/ml 10 ml vial SC SCH (21:52)
[2016-11-09] MEDS: Piperacillin/Tazobact 3.375 GM in Sodium Chloride 0.9% 100 ML IVPB SCH ×3 (05:11→21:47)
--- NOTE | 2016-11-09 07:06 | PN ---
DATE: 11/08/2016 SUBJECTIVE: The patient is seen with her daughter. The patient continues to have this chronic delusion of somebody is trying to poison her. Today, she showed a picture of herself wrapping herself with plastic at home while trying to go to bed. According to the daughter, the patient has been trying to move to different apartment. She continues to have these delusions of persecution and her neighbor upstairs is trying to poison her. The patient is on Ativan and Restoril but reluctant to take other medications as the patient has history of liver transplant and afraid that other medications can affect her liver. The patient is on Prograf. This is the chronic problem of delusion of persecution, but the patient is managing basically by herself. REVIEW OF SYSTEM GENERAL: The patient is alert and oriented x3, seen with her daughter, still delusional and paranoid but redirectable. VITAL SIGNS: Temperature is 97.4, pulse is 95, blood pressure is 123/75, respirations 20, and oxygen saturation is 97%. SKIN: No diaphoresis. HEENT: No headache. No dizziness. NECK: Supple. RESPIRATORY: No dyspnea. CARDIOVASCULAR: No chest pain. GASTROINTESTINAL: She is eating well. EXTREMITIES: The patient is moving extremities. MUSCULOSKELETAL: Feels weak. NEUROLOGIC: Alert and oriented x3. LABORATORY DATA: Blood sugars are still elevated. The patient's sugar is still in 400 in range and yesterday was greater than 500 range. MENTAL STATUS EXAMINATION: Elderly female who looks stated age, alert and oriented x3. Seen with her daughter. Mood is calm. Affect is reactive. Speech is spontaneous. Thought process is coherent. Thought content, still has paranoid delusions of somebody is trying to poison her. The patient has delusion that her neighbor upstairs is trying to poison her and the patient has been sleeping wrapping herself with plastic. No suicidal or homicidal ideation. Attention and memory seem to be fair. Insight and judgment are fair. Impulse control is fair. IMPRESSION: History of recurrent depression and anxiety as well as delusional disorder, paranoid type as well as uncontrolled diabetes. PLAN AND RECOMMENDATION: The patient is seen and medications reviewed. Continue present psych meds. Continue treatment plan as outlined. Discussed with the patient and her daughter this delusion is chronic and the patient is reluctant to take any other antipsychotic meds from fear of complication as the patient has history of liver transplant in the past. It is also possible that this delusional ideas in the patient could be a side effect of the Prograf, which can cause some psychiatric symptoms as a side effect. Continue treatment plan as outlined. We will monitor her blood sugar accordingly. Adama Mccarthy MD
[2016-11-09] MEDS: (Novolin N) Insulin Human Isophane (NPH) 100 u/ml 10 ml vial SC SCH ×2 (08:44→20:39)
[2016-11-09] MEDS: (Novolog) Insulin Aspart, Recombinant 100 u/ml 10 ml vial SC SCH ×7 (08:44→21:46)
[2016-11-09] MEDS: Enoxaparin 30 mg Syringe SC SCH (11:28)
[2016-11-09] MEDS: Ergocalciferol 50,000 Intl Units Cap PO SCH (11:28)
[2016-11-09] MEDS: Magnesium Chloride 64 mg ER Tab PO SCH ×4 (11:28→17:40)
[2016-11-09] MEDS: Pantoprazole 40 mg EC Tab PO SCH (11:29)
[2016-11-09] MEDS: Lactobacillus Acidophilus 500 MU Cap PO SCH ×2 (11:29→17:37)
[2016-11-09 12:20] LABS: HEMATOCRIT 35.4 % (34.0-47.0); MEAN CELL VOLUME 86.2 fL (81.0-99.0); MEAN CORPUSCULAR HEMOGLOBIN 27.8 pg (27.0-31.0); MEAN CORPUSCULAR HGB CONC 32.3 g/dL (33.0-37.0); MEAN PLATELET VOLUME 7.6 fL (7.2-11.7); RED CELL DISTRIBUTION WIDTH 14.2 % (11.5-14.5); WHITE BLOOD COUNT 4.4 K/uL (4.8-10.8)
[2016-11-09 12:27] LABS: POTASSIUM 4.1 mmol/L (3.6-5.2)
[2016-11-09 12:30] LABS: CALCIUM 8.8 mg/dl (8.6-10.4)
--- NOTE | 2016-11-09 21:56 | CP.PCM.PN ---
Subjective - Date & Time of Evaluation Date of Evaluation: 11/08/16 - Subjective Subjective: SUGARS ARE HIGH, FEELS WEAK AND DIZZY, NO COUGH Objective - Vital Signs/Intake and Output Vital Signs (last 24 hours): Temp Pulse Resp BP Pulse Ox 97.7 F 100 H 20 140/82 98 11/09/16 17:46 11/09/16 17:46 11/09/16 17:46 11/09/16 17:46 11/09/16 17:46 Intake and Output: 11/09/16 11/10/16 18:59 06:59 Intake Total 340 Balance 340 - Medications Medications: Current Medications Amlodipine Besylate (Norvasc) 5 mg PO DAILY [facility] Last Admin: 11/09/16 11:28 Dose: 5 mg Docusate Sodium (Colace) 100 mg PO TID [facility] Last Admin: 11/09/16 17:37 Dose: 100 mg Enoxaparin Sodium (Lovenox) 30 mg SC DAILY [facility] Last Admin: 11/09/16 11:28 Dose: 30 mg Ergocalciferol (Drisdol 50,000 Intl Units Cap) 1 cap PO QWK [facility] Last Admin: 11/09/16 11:28 Dose: 1 cap Ferrous Sulfate (Feosol) 325 mg PO DAILY [facility] Last Admin: 11/09/16 11:29 Dose: 325 mg Furosemide (Lasix) 40 mg PO DAILY [facility] Last Admin: 11/09/16 11:29 Dose: 40 mg Piperacillin Sod/Tazobactam (Sod 3.375 gm/ Sodium Chloride) 100 mls @ 200 mls/ hr IVPB Q8H [facility] Last Admin: 11/09/16 21:47 Dose: 200 mls/hr Insulin Aspart (Novolog) 0 unit SC ACHS [facility] PRN Reason: Protocol Last Admin: 11/09/16 21:46 Dose: Not Given Insulin Aspart (Novolog) 7 unit SC TIDPC [facility] Last Admin: 11/09/16 17:39 Dose: 7 unit Insulin Human NPH (Novolin N) 12 unit SC Q12@0800,2000 [facility] Last Admin: 11/09/16 20:39 Dose: 12 unit Lactobacillus Acidophilus (Bacid Acidophilus) 1 cap PO BID [facility] Last Admin: 11/09/16 17:37 Dose: 1 cap Leucovorin Calcium (Leucovorin) 5 mg PO DAILY [facility] Last Admin: 11/09/16 11:28 Dose: 5 mg Lorazepam (Ativan) 0.5 mg PO BID [facility] Last Admin: 11/09/16 17:37 Dose: 0.5 mg Magnesium Chloride (Slow-Mag) 64 mg PO TID [facility] Last Admin: 11/09/16 17:40 Dose: 64 mg Methylprednisolone (Medrol) 4 mg PO DAILY [facility] Last Admin: 11/09/16 11:28 Dose: 4 mg Pantoprazole Sodium (Protonix Ec Tab) 40 mg PO DAILY [facility] Last Admin: 11/09/16 11:29 Dose: 40 mg Tacrolimus (Prograf Cap) 1 mg PO Q12 [facility] Last Admin: 11/09/16 21:46 Dose: 1 mg Temazepam (Restoril) 30 mg PO HS PRN PRN Reason: Insomnia Last Admin: 11/08/16 21:17 Dose: 30 mg - Labs Labs: 11/09/16 12:16 11/09/16 12:16 - Constitutional Appears: Non-toxic, No Acute Distress, Chronically Ill - Head Exam Head Exam: ATRAUMATIC, NORMAL INSPECTION, NORMOCEPHALIC - Eye Exam Eye Exam: EOMI, Normal appearance Pupil Exam: NORMAL ACCOMODATION - ENT Exam ENT Exam: Mucous Membranes Moist, Normal Exam - Neck Exam Neck Exam: Normal Inspection - Respiratory Exam Respiratory Exam: Clear to Ausculation Bilateral, NORMAL BREATHING PATTERN - Cardiovascular Exam Cardiovascular Exam: REGULAR RHYTHM, +S1, +S2 - GI/Abdominal Exam GI & Abdominal Exam: Soft, Normal Bowel Sounds - Rectal Exam Rectal Exam: NORMAL INSPECTION - Extremities Exam Extremities Exam: Normal Capillary Refill, Normal Inspection - Neurological Exam Neurological Exam: Alert, Awake, CN II-XII Intact, Normal Gait, Oriented x3 Neuro motor strength exam: Left Upper Extremity: 5, Right Upper Extremity: 5, Left Lower Extremity: 5, Right Lower Extremity: 5 - Psychiatric Exam Psychiatric exam: Anxious, Flat Affect - Skin Skin Exam: Intact Assessment and Plan (1) Hypoglycemia associated with diabetes Assessment & Plan: UNCONTROLLED, TO BE SEEN BY ENDOCRINOLOGY Status: Acute (2) Anxiety and depression Status: Chronic (3) Hypertension Status: Chronic (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
--- NOTE | 2016-11-09 21:57 | CP.PCM.PN ---
Subjective - Date & Time of Evaluation Date of Evaluation: 11/09/16 - Subjective Subjective: WEK, MORE ALERT, NO FEVER, NO COUGH, NO CHEST PAIN, ANXIOUS AT TIMES Objective - Vital Signs/Intake and Output Vital Signs (last 24 hours): Temp Pulse Resp BP Pulse Ox 97.7 F 100 H 20 140/82 98 11/09/16 17:46 11/09/16 17:46 11/09/16 17:46 11/09/16 17:46 11/09/16 17:46 Intake and Output: 11/09/16 11/10/16 18:59 06:59 Intake Total 340 Balance 340 - Medications Medications: Current Medications Amlodipine Besylate (Norvasc) 5 mg PO DAILY [facility] Last Admin: 11/09/16 11:28 Dose: 5 mg Docusate Sodium (Colace) 100 mg PO TID [facility] Last Admin: 11/09/16 17:37 Dose: 100 mg Enoxaparin Sodium (Lovenox) 30 mg SC DAILY [facility] Last Admin: 11/09/16 11:28 Dose: 30 mg Ergocalciferol (Drisdol 50,000 Intl Units Cap) 1 cap PO QWK [facility] Last Admin: 11/09/16 11:28 Dose: 1 cap Ferrous Sulfate (Feosol) 325 mg PO DAILY [facility] Last Admin: 11/09/16 11:29 Dose: 325 mg Furosemide (Lasix) 40 mg PO DAILY [facility] Last Admin: 11/09/16 11:29 Dose: 40 mg Piperacillin Sod/Tazobactam (Sod 3.375 gm/ Sodium Chloride) 100 mls @ 200 mls/ hr IVPB Q8H [facility] Last Admin: 11/09/16 21:47 Dose: 200 mls/hr Insulin Aspart (Novolog) 0 unit SC ACHS [facility] PRN Reason: Protocol Last Admin: 11/09/16 21:46 Dose: Not Given Insulin Aspart (Novolog) 7 unit SC TIDPC [facility] Last Admin: 11/09/16 17:39 Dose: 7 unit Insulin Human NPH (Novolin N) 12 unit SC Q12@0800,2000 [facility] Last Admin: 11/09/16 20:39 Dose: 12 unit Lactobacillus Acidophilus (Bacid Acidophilus) 1 cap PO BID [facility] Last Admin: 11/09/16 17:37 Dose: 1 cap Leucovorin Calcium (Leucovorin) 5 mg PO DAILY [facility] Last Admin: 11/09/16 11:28 Dose: 5 mg Lorazepam (Ativan) 0.5 mg PO BID [facility] Last Admin: 11/09/16 17:37 Dose: 0.5 mg Magnesium Chloride (Slow-Mag) 64 mg PO TID [facility] Last Admin: 11/09/16 17:40 Dose: 64 mg Methylprednisolone (Medrol) 4 mg PO DAILY [facility] Last Admin: 11/09/16 11:28 Dose: 4 mg Pantoprazole Sodium (Protonix Ec Tab) 40 mg PO DAILY [facility] Last Admin: 11/09/16 11:29 Dose: 40 mg Tacrolimus (Prograf Cap) 1 mg PO Q12 [facility] Last Admin: 11/09/16 21:46 Dose: 1 mg Temazepam (Restoril) 30 mg PO HS PRN PRN Reason: Insomnia Last Admin: 11/08/16 21:17 Dose: 30 mg - Labs Labs: 11/09/16 12:16 11/09/16 12:16 - Constitutional Appears: Non-toxic, No Acute Distress, Chronically Ill - Head Exam Head Exam: ATRAUMATIC, NORMAL INSPECTION, NORMOCEPHALIC - Eye Exam Eye Exam: EOMI, Normal appearance - ENT Exam ENT Exam: Mucous Membranes Moist, Normal Exam - Neck Exam Neck Exam: Normal Inspection - Respiratory Exam Respiratory Exam: Clear to Ausculation Bilateral, NORMAL BREATHING PATTERN - GI/Abdominal Exam GI & Abdominal Exam: Soft, Normal Bowel Sounds - Rectal Exam Rectal Exam: NORMAL INSPECTION - Neurological Exam Neurological Exam: Alert, Awake, CN II-XII Intact, Normal Gait, Oriented x3 Neuro motor strength exam: Left Upper Extremity: 5 - Psychiatric Exam Psychiatric exam: Anxious, Depressed, Flat Affect - Skin Skin Exam: Dry Assessment and Plan (1) Hypoglycemia associated with diabetes Status: Acute (2) Anxiety and depression Status: Chronic (3) Hypertension Status: Chronic (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
[2016-11-10] MEDS: Piperacillin/Tazobact 3.375 GM in Sodium Chloride 0.9% 100 ML IVPB SCH ×2 (05:46→13:13)
--- NOTE | 2016-11-10 06:41 | PN ---
DATE: 11/09/2016 SUBJECTIVE: The patient is seen. The patient was noted by staff to be not eating well; however, her blood sugar level has been very labile. The patient's last postprandial blood sugar was 548. According to the patient, she did not eat her breakfast because she does not like the food. The patient was encouraged to eat her meals regularly because of her unstable blood sugar. The patient has been followed by Dr. Louis, match marker. VITAL SIGNS: Temperature is 98, pulse is 66, blood pressure 133/77, respirations 20, oxygen sat is 95%. REVIEW OF SYSTEMS: GENERAL: The patient is alert and oriented x3. She is seen in her room, anxious. She states that she needs her boyfriend at home to help her. SKIN: No diaphoresis. HEENT: No headache. No dizziness. NECK: Supple. RESPIRATORY: No dyspnea. CARDIOVASCULAR: No chest pain. GASTROINTESTINAL: Appetite is poor. She says she does not like cold food. The patient was offered a sandwich, but she states she will have some vegetable soup. The patient was advised to eat regularly, especially since she is diabetic and her blood sugar levels are very labile. EXTREMITIES: No tremors. MUSCULOSKELETAL: Feels weak. NEUROLOGIC: Alert and oriented x3. GENITOURINARY: No dysuria. MENTAL STATUS EXAMINATION: Elderly female, who looks her stated age, awake, alert and oriented x3, but is anxious, affect is reactive. Speech spontaneous. Thought process is coherent. Thought content, the patient has intermittent delusions and paranoia that her neighbor upstairs is trying to send toxins to her house. The patient is not complaining about that in the hospital. Stating no psychosis, no suicidal or homicidal ideation. Attention and memory seem to be fair. Insight and judgment are fair. Impulse control is fair. IMPRESSION: Recurrent depression and anxiety, as well as possible delusional disorder, paranoid type, as well as uncontrolled diabetes. PLAN AND RECOMMENDATION: The patient was seen and meds reviewed. Continue present psych meds. The patient is only on Ativan and sleeping pills. The patient is afraid to take any other medications because the patient has a history of liver transplant in the past and is currently taking Prograf. Her psychotic symptoms are chronic and the patient has had these delusions for quite a while, which tend to be situationally related. The patient is not complaining of delusions or paranoia in the hospital, but only when she is at home. Continue treatment plan as outlined. We will hold other psych meds for now. Adama Mccarthy MD
[2016-11-10] MEDS: (Novolog) Insulin Aspart, Recombinant 100 u/ml 10 ml vial SC SCH ×6 (08:28→18:02)
[2016-11-10] MEDS: (Novolin N) Insulin Human Isophane (NPH) 100 u/ml 10 ml vial SC SCH (08:34)
[2016-11-10] MEDS: Ergocalciferol 50,000 Intl Units Cap PO SCH (09:50)
[2016-11-10] MEDS: Pantoprazole 40 mg EC Tab PO SCH (09:51)
[2016-11-10] MEDS: Enoxaparin 30 mg Syringe SC SCH (09:52)
[2016-11-10] MEDS: Magnesium Chloride 64 mg ER Tab PO SCH ×3 (09:53→18:03)
[2016-11-10] MEDS: Lactobacillus Acidophilus 500 MU Cap PO SCH ×2 (09:54→18:07)
[2016-11-10 11:36] LABS: MEAN CELL VOLUME 85.9 fL (81.0-99.0); MEAN CORPUSCULAR HEMOGLOBIN 28.1 pg (27.0-31.0); MEAN CORPUSCULAR HGB CONC 32.7 g/dL (33.0-37.0); MEAN PLATELET VOLUME 7.2 fL (7.2-11.7); RED CELL DISTRIBUTION WIDTH 14.4 % (11.5-14.5); WHITE BLOOD COUNT 3.8 K/uL (4.8-10.8)
[2016-11-10 11:49] LABS: CHLORIDE 98 mmol/L (98-107); POTASSIUM 3.9 mmol/L (3.6-5.2); SODIUM 138 mmol/L (132-148)
[2016-11-10 11:52] LABS: CARBON DIOXIDE 28 mmol/L (22-30); GFR AFRICAN-AMERICAN > 60
[2016-11-10 11:53] LABS: BLOOD UREA NITROGEN 24 mg/dL (7-17); CALCIUM 9.3 mg/dl (8.6-10.4); GLUCOSE,RANDOM 222 mg/dL (65-105)
--- NOTE | 2016-11-10 12:22 | CP.PCM.PN ---
Subjective - Date & Time of Evaluation Date of Evaluation: 11/10/16 Time of Evaluation: 12:22 - Subjective Subjective: Alert, awake, no sob or chest pains. Objective - Vital Signs/Intake and Output Vital Signs (last 24 hours): Temp Pulse Resp BP Pulse Ox 98.8 F 94 H 20 120/80 97 11/10/16 08:00 11/10/16 08:00 11/10/16 08:00 11/10/16 09:51 11/10/16 08:00 Intake and Output: 11/10/16 11/10/16 06:59 18:59 Intake Total 400 Balance 400 - Medications Medications: Current Medications Amlodipine Besylate (Norvasc) 5 mg PO DAILY [facility] Last Admin: 11/10/16 09:51 Dose: 5 mg Docusate Sodium (Colace) 100 mg PO TID [facility] Last Admin: 11/10/16 09:51 Dose: 100 mg Enoxaparin Sodium (Lovenox) 30 mg SC DAILY [facility] Last Admin: 11/10/16 09:52 Dose: 30 mg Ergocalciferol (Drisdol 50,000 Intl Units Cap) 1 cap PO QWK [facility] Last Admin: 11/10/16 09:50 Dose: 1 cap Ferrous Sulfate (Feosol) 325 mg PO DAILY [facility] Last Admin: 11/10/16 09:51 Dose: 325 mg Furosemide (Lasix) 40 mg PO DAILY [facility] Last Admin: 11/10/16 09:51 Dose: 40 mg Piperacillin Sod/Tazobactam (Sod 3.375 gm/ Sodium Chloride) 100 mls @ 200 mls/ hr IVPB Q8H [facility] Last Admin: 11/10/16 05:46 Dose: 200 mls/hr Insulin Aspart (Novolog) 0 unit SC ACHS [facility] PRN Reason: Protocol Last Admin: 11/10/16 08:29 Dose: 3 unit Insulin Aspart (Novolog) 7 unit SC TIDPC [facility] Last Admin: 11/10/16 08:28 Dose: 7 unit Insulin Human NPH (Novolin N) 12 unit SC Q12@0800,2000 [facility] Last Admin: 11/10/16 08:34 Dose: 12 unit Lactobacillus Acidophilus (Bacid Acidophilus) 1 cap PO BID [facility] Last Admin: 11/10/16 09:54 Dose: 1 cap Leucovorin Calcium (Leucovorin) 5 mg PO DAILY [facility] Last Admin: 11/10/16 09:54 Dose: 5 mg Lorazepam (Ativan) 0.5 mg PO BID [facility] Last Admin: 11/10/16 09:49 Dose: 0.5 mg Magnesium Chloride (Slow-Mag) 64 mg PO TID [facility] Last Admin: 11/10/16 09:53 Dose: 64 mg Methylprednisolone (Medrol) 4 mg PO DAILY [facility] Last Admin: 11/10/16 09:54 Dose: 4 mg Pantoprazole Sodium (Protonix Ec Tab) 40 mg PO DAILY [facility] Last Admin: 11/10/16 09:51 Dose: 40 mg Tacrolimus (Prograf Cap) 1 mg PO Q12 [facility] Last Admin: 11/10/16 09:53 Dose: 1 mg Temazepam (Restoril) 30 mg PO HS PRN PRN Reason: Insomnia Last Admin: 11/10/16 00:20 Dose: 30 mg - Labs Labs: 11/10/16 11:29 11/10/16 11:29 Assessment and Plan - Assessment and Plan (Free Text) Assessment: Patient is seen and examined. Alert, orientedx3, NAD. Blood sugar is improving. D/W DR Johnson and DR Hall, discharge plan for today. Advised to follow up with PMD and endocrinologyst in 1 week.
[2016-11-10 17:06] VITALS: BP 169/81; PULSE 92; TEMP 98; O2SAT 99
--- NOTE | 2016-11-10 18:04 | PN ---
DATE: 11/10/2016 SUBJECTIVE: The patient is seen. The patient is back to her baseline. She says she wants to go home. Her blood sugars still fluctuates with the last blood sugar level is 222. The patient admits that she is not cheating with her diet and that she is not eating extra food. The patient psych davis, the patient is on Ativan and temazepam. Continues to have often periods of delusions of persecution that her neighbor upstairs is going to send her poison, but other than that this is chronic. VITAL SIGNS: Temperature is 98.8, pulse is 94, blood pressure 120/80, respirations 20, oxygen saturation 97%. REVIEW OF SYSTEMS: GENERAL: The patient is alert and oriented x3. She states that she has been compliant with her diabetic diet, but blood sugars are fluctuating. SKIN: No diaphoresis. HEENT: No headache. No dizziness. NECK: Supple. RESPIRATORY: No dyspnea. CARDIOVASCULAR: No chest pain. GASTROINTESTINAL: She is eating well. EXTREMITIES: The patient is up and ambulatory. MUSCULOSKELETAL: Weakness improving. NEUROLOGIC: Alert and oriented x3 and seen with staff. She has been compliant with medicines and care. MENTAL STATUS EXAMINATION: Elderly female who looks stated age, alert and oriented x3. Mood is calm. Affect is reactive. Speech is spontaneous. The patient wants to go to home. Thought process is coherent. Thought content, no overt suicidal ideation, no paranoia or hallucinations. Attention and memory seem to be fair. Insight and judgment are fair. Impulse control is fair. 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 PLAN AND RECOMMENDATION: The patient is seen and medications reviewed. Continue present management. The patient is stable to go home today to follow up with her doctor. Psych davis, we will keep her on the psych medications Ativan 0.5 mg b.i.d. and temazepam at night. The patient is reluctant to take any other psych medicines as the patient has a history of liver transplant and currently taking Prograf. Aadma Mccarthy MD MTDNelsy
--- NOTE | 2016-11-10 22:16 | CP.PCM.DIS ---
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 Hospital Course - Lab Results Lab Results: Micro Results 11/08/16 12:22 Urine,Clean Catch Urine Culture - Final No Growth (<1,000 CFU/ML) Most Recent Lab Values WBC 3.8 K/uL (4.8-10.8) L 11/10/16 11:29 RBC 4.19 Mil/uL (3.80-5.20) 11/10/16 11:29 Hgb 11.8 g/dL (11.0-16.0) 11/10/16 11:29 Hct 36.0 % (34.0-47.0) 11/10/16 11:29 MCV 85.9 fL (81.0-99.0) 11/10/16 11:29 MCH 28.1 pg (27.0-31.0) 11/10/16 11:29 MCHC 32.7 g/dL (33.0-37.0) L 11/10/16 11:29 RDW 14.4 % (11.5-14.5) 11/10/16 11:29 Plt Count 111 K/uL (130-400) L 11/10/16 11:29 MPV 7.2 fL (7.2-11.7) 11/10/16 11:29 Neut % (Auto) 68.2 % (50.0-75.0) 11/08/16 07:58 Lymph % (Auto) 22.0 % (20.0-40.0) 11/08/16 07:58 [place] % (Auto) 7.4 % (0.0-10.0) 11/08/16 07:58 Eos % (Auto) 1.8 % (0.0-4.0) 11/08/16 07:58 Baso % (Auto) 0.6 % (0.0-2.0) 11/08/16 07:58 Neut # 2.7 K/uL (1.8-7.0) 11/08/16 07:58 Lymph # 0.9 K/uL (1.0-4.3) L 11/08/16 07:58 [place] # 0.3 K/uL (0.0-0.8) 11/08/16 07:58 Eos # 0.1 K/uL (0.0-0.7) 11/08/16 07:58 Baso # 0.0 K/uL (0.0-0.2) 11/08/16 07:58 Differential Comment 11/07/16 00:53 pO2 32 mm/Hg (30-55) 11/07/16 00:57 VBG pH 7.37 (7.32-7.43) 11/07/16 00:57 VBG pCO2 54 mmHg (40-60) 11/07/16 00:57 VBG HCO3 27.4 mmol/L 11/07/16 00:57 VBG Total CO2 32.9 mmol/L (22-28) H 11/07/16 00:57 VBG O2 Sat (Calc) 66.5 % (40-65) H 11/07/16 00:57 VBG Base Excess 4.5 mmol/L (0.0-2.0) H 11/07/16 00:57 VBG Potassium 4.6 mmol/L (3.6-5.2) 18 00:57 Sodium 138.0 mmol/l (132-148) 18 00:57 Chloride 103.0 mmol/L (98-107) 11/07/16 00:57 Glucose 139 mg/dl (65-105) H 11/07/16 00:57 Lactate 1.1 mmol/L (0.7-2.1) 18 00:57 Sodium 138 mmol/L (132-148) 11/10/16 11:29 Potassium 3.9 mmol/L (3.6-5.2) 11/10/16 11:29 Chloride 98 mmol/L (98-107) 11/10/16 11:29 Carbon Dioxide 28 mmol/L (22-30) 11/10/16 11:29 Anion Gap 16 (10-20) 11/10/16 11:29 BUN 24 mg/dL (7-17) H 11/10/16 11:29 Creatinine 0.9 MG/DL (0.7-1.2) 11/10/16 11:29 Est GFR ( Amer) > 60 11/10/16 11:29 Est GFR (Non-Af Amer) > 60 11/10/16 11:29 POC Glucose (mg/dL) 145 mg/dL (65-110) H 11/10/16 16:25 Random Glucose 222 mg/dL (65-105) H 11/10/16 11:29 Hemoglobin A1c 8.9 % (4.2-6.5) H 11/09/16 08:20 Calcium 9.3 mg/dl (8.6-10.4) 11/10/16 11:29 Total Bilirubin 0.8 mg/dL (0.2-1.3) 11/08/16 07:58 AST 38 U/L (14-36) H D 11/08/16 07:58 ALT 53 U/L (9-52) H 11/08/16 07:58 Alkaline Phosphatase 205 U/L (38-126) H D 11/08/16 07:58 Total Protein 6.7 g/dL (6.3-8.3) 11/08/16 07:58 Albumin 3.3 g/dL (3.5-5.0) L 11/08/16 07:58 Globulin 3.3 gm/dL (2.2-3.9) 11/08/16 07:58 Albumin/Globulin Ratio 1.0 (1.0-2.1) 11/08/16 07:58 TSH 3rd Generation 2.90 mIU/L (0.46-4.68) 11/09/16 08:20 Venous Blood Potassium 4.6 mmol/L (3.6-5.2) 11/07/16 00:57 Urine Color Yellow (YELLOW) 11/07/16 00:59 Urine Clarity Clear (Clear) 11/07/16 00:59 Urine pH 7.0 (5.0-8.0) 11/07/16 00:59 Ur Specific [place] 1.011 (1.003-1.030) 11/07/16 00:59 Urine Protein Negative mg/dL (NEGATIVE) 11/07/16 00:59 Urine Glucose (UA) Normal mg/dL (Normal) 11/07/16 00:59 Urine Ketones Negative mg/dL (NEGATIVE) 11/07/16 00:59 Urine Blood Negative (NEGATIVE) 11/07/16 00:59 Urine Nitrate Negative (NEGATIVE) 11/07/16 00:59 Urine Bilirubin Negative (NEGATIVE) 11/07/16 00:59 Urine Urobilinogen Normal mg/dL (0.2-1.0) 11/07/16 00:59 Ur Leukocyte Esterase 3+ [place]/uL (Negative) H 11/07/16 00:59 Urine WBC (Auto) 11 /hpf (0-5) H 11/07/16 00:59 Urine RBC (Auto) < 1 /hpf (0-3) 11/07/16 00:59 Ur Squamous Epith Cells 4 /hpf (0-5) 11/07/16 00:59 Serum Ketones Negative (NEGATIVE) 11/07/16 00:53 - Hospital Course Hospital Course: 76 y/o hf with uncont dm and she has h/o liver transplant, now she is on accucheck and sliding scale, and she is better and is for discharge Discharge Exam - Head Exam Head Exam: ATRAUMATIC, NORMAL INSPECTION, NORMOCEPHALIC - Eye Exam Eye Exam: EOMI, Normal appearance, PERRL Pupil Exam: NORMAL ACCOMODATION - ENT Exam ENT Exam: Mucous Membranes Moist, Normal Oropharynx - Neck Exam Neck exam: Full Rom - Respiratory Exam Respiratory Exam: Clear to PA & Lateral, NORMAL BREATHING PATTERN - Cardiovascular Exam Cardiovascular Exam: REGULAR RHYTHM, +S1, +S2 - GI/Abdominal Exam GI & Abdominal Exam: Normal Bowel Sounds - Rectal Exam Rectal Exam: NORMAL INSPECTION - Extremities Exam Extremities exam: normal capillary refill, normal inspection - Neurological Exam Neurological exam: Alert, CN II-XII Intact, Normal Gait, Oriented x3, Reflexes Normal - Psychiatric Exam Psychiatric exam: Normal Mood - Skin Skin Exam: Intact Discharge Plan - Follow Up Plan Condition: FAIR Disposition: HOME/ ROUTINE Instructions: Urinary Tract Infection in Women (DC), Urinary Tract Infection in Men (DC), Dysuria (GEN)
== END 2016-11-10 18:30 | disposition home or self-care (01) | DRG 638 ==
LOC: C.ER 22:38 → C.9E 11-07 01:29 → C.3T 11-07 03:10 → OBSVTOIN 11-08 12:16
PROVIDERS: ADMIT Internal Medicine; ATTEND Internal Medicine
DX: E11.649 Type 2 diabetes mellitus with hypoglycemia without coma (principal); F33.9 Major depressive disorder, recurrent, unspecified; J44.9 Chronic obstructive pulmonary disease, unspecified; Z94.4 Liver transplant status; N39.0 Urinary tract infection, site not specified; I10 Essential (primary) hypertension; F22 Delusional disorders; F31.9 Bipolar disorder, unspecified; F41.9 Anxiety disorder, unspecified; I25.10 Atherosclerotic heart disease of native coronary artery without angina pectoris; T45.1X5A Adverse effect of antineoplastic and immunosuppressive drugs, initial encounter; Z87.01 Personal history of pneumonia (recurrent); Z79.4 Long term (current) use of insulin; Z96.642 Presence of left artificial hip joint

== ENCOUNTER 2016-12-04 15:04 | Emergency (ER) | payer OTHER, MEDICAID ==
[2016-12-04 15:04] VITALS: BMI 20.9
[2016-12-04 15:22] VITALS: RESP 18; TEMP 97.9
--- NOTE | 2016-12-04 15:42 | C.PDOC ---
History Of Present Illness 76 y/o female presents to the ED with complaints of upper back discomfort for the past 3 days, worse on the right side. She has history of prior episodes of back pain. Denies SOB, palpitations, cough, weakness, numbness, incontinence or any other complaints. Time Seen by Provider: 12/04/16 15:24 Chief Complaint (Nursing): Back Pain History Per: Patient History/Exam Limitations: no limitations Onset/Duration Of Symptoms: Days (3) Past Medical History Reviewed: Historical Data, Nursing Documentation, Vital Signs Vital Signs: Last Vital Signs Temp 97.9 F 12/04/16 15:20 Pulse 75 12/04/16 17:22 Resp 18 12/04/16 17:22 BP 138/75 12/04/16 17:22 Pulse Ox 96 12/04/16 20:24 - Medical History PMH: Anxiety, Arthritis, Bipolar Disorder, Bronchitis, CAD, COPD, Depression, Diabetes, Fractures (L leg), Gastritis, HTN, Peripheral Edema, Pneumonia, Pneumothorax (effusion) Surgical History: (x 2) - [facility] Procedures CLOSED ENDOSCOPIC BIOPSY OF LARGE INTESTINE (08/31/13) DRAINAGE OF RIGHT LOWER LOBE BRONCHUS, ENDO, DIAGN (08/03/15) DRAINAGE OF RIGHT MIDDLE LOBE BRONCHUS, ENDO, DIAGN (08/03/15) DRAINAGE OF SPINAL CANAL, PERCUTANEOUS APPROACH, DIAGNOSTIC (08/03/15) ESOPHAGOGASTRODUODENOSCOPY [EGD] W/CLOSED BIOPSY (08/31/13) INSERT INTERCOSTAL CATH (03/15/14) INSERTION OF ENDOTRACHEAL AIRWAY INTO TRACHEA, VIA OPENING (08/03/15) INSERTION OF INFUSION DEV INTO SUP VENA CAVA, PERC APPROACH (08/03/15) OTHER PLEURAL INCISION (03/15/14) REMOVAL OF FB NOS (05/25/13) RESPIRATORY VENTILATION, GREATER THAN 96 CONSECUTIVE HOURS (08/03/15) TRANSFUSE NONAUT PLATELETS IN PERIPH VEIN, PERC (08/03/15) Family History: States: No Known Family Hx - Social History Hx Tobacco Use: No Hx Alcohol Use: No Hx Substance Use: No - Immunization History Hx Tetanus Toxoid Vaccination: No Hx Influenza Vaccination: Yes Hx Pneumococcal Vaccination: Yes Review Of Systems Except As Marked, All Systems Reviewed And Found Negative. Cardiovascular: Negative for: Palpitations Respiratory: Negative for: Cough, Shortness of Breath Musculoskeletal: Positive for: Back Pain (Upper back discomfort, worse on the right side) Neurological: Negative for: Weakness, Numbness Physical Exam - Physical Exam Appears: Non-toxic, No Acute Distress, Other ((+) Thin. Elderly, appears younger than stated age) Skin: Warm, No Rash Head: Atraumatic, Normacephalic Eye(s): bilateral: Normal Inspection Neck: Normal, Normal ROM, Supple Chest: Symmetrical, No Tenderness Cardiovascular: Rhythm Regular, No Murmur Respiratory: Normal Breath Sounds, No Rales, No Rhonchi, No Stridor, No Wheezing Back: Normal Inspection (no rash), No Vertebral Tenderness, No Decreased ROM, No Paraspinal Tenderness, Other (Bilateral thoracic muscle tenderness, worse on right side.) Extremity: Normal ROM, No Swelling Neurological/Psych: Oriented x3, Normal Speech, Normal Sensation, Normal Reflexes Gait: Steady ED Course And Treatment O2 Sat by Pulse Oximetry: 96 (RA) Pulse Ox Interpretation: Normal - Other Rad CXR X-Ray: Viewed By Me, Read By Radiologist Interpretation: HISTORY: upper back right pain. COMPARISON: Comparison chest 08/19/2016. Comparison also made with CT scan of the chest dated 03/29/2014. No prior. TECHNIQUE: Chest PA and lateral. FINDINGS: LUNGS: Lung garcia appear slightly hyperinflated; rule out underlying changes of COPD. Asymmetric somewhat lucent appearance of the left isaac thorax compared the right nonspecific. There may be some minor bibasilar atelectasis or scarring. PLEURA : No significant pleural effusion identified. No pneumothorax apparent. CARDIOVASCULAR: Heart size is upper limits of normal/borderline enlarged. Mitral valve calcification again noted. OSSEOUS STRUCTURES: Mild multilevel degenerative spondylosis of the thoracic spine. VISUALIZED UPPER ABDOMEN: Normal. OTHER FINDINGS: None. IMPRESSION: Mild hyperinflation ; rule out underlying changes of COPD. Asymmetric appearance of the hemithoraces left- sided which is slightly more lucent appearance than the right nonspecific. Mild bibasilar atelectasis or scarring. Medical Decision Making Medical Decision Making: Impression: upper back pain Differential diagnosis includes but not limited to: muscular strain, arthritis, pneumonia Plan: * CXR * patient declined injury Progress: CXR shows degenerative disk disease and hyperinflation of lungs. Patient remained afebrile alert and oriented with stable vital signs during ER evaluation. Discussed results with patient. On re-examination, patient is resting comfortably in no acute distress. Patient feels comfortable going home and will be discharged. Patient given follow up instructions. Instructed to return to ER if symptoms worsen or new symptoms arise. Disposition Counseled Patient/Family Regarding: Diagnosis, Need For Followup - Disposition Referrals: Westley Hall MD [Staff Provider] - Disposition: HOME/ ROUTINE Disposition Time: 00:42 Condition: STABLE Additional Instructions: Follow up with your primary medical doctor or clinic in 2-5 days for further evaluation. Take medications as prescribed. Return to the emergency department at any time if symptoms persist or worsen. Bell un seguimiento con guerrier mdico o clnica primaria en 2-5 murphy para eli evaluacin posterior. [place] los medicamentos segn lo prescrito. Regrese al servicio de urgencias en cualquier momento si los sntomas persisten o empeoran. Prescriptions: Cyclobenzaprine [Cyclobenzaprine HCl] 10 mg PO TID #21 tab Ibuprofen [Motrin Tab] 600 mg PO Q12 #20 tab Instructions: Thoracic Pain (ED) Print Language: OCCITAN - POA Present On Arrival: None - Clinical Impression Clinical Impression: Thoracic back sprain - PA / [employer] / Resident Statement MD/DO has reviewed & agrees with the documentation as recorded. - Scribe Statement The provider has reviewed the documentation as recorded by the Scribe Susan Argueta All medical record entries made by the Scribe were at my direction and personally dictated by me. I have reviewed the chart and agree that the record accurately reflects my personal performance of the history, physical exam, medical decision making, and the department course for this patient. I have also personally directed, reviewed, and agree with the discharge instructions and disposition.
[2016-12-04 17:23] VITALS: BP 138/75; PULSE 75
--- NOTE | 2016-12-04 17:51 | RAD ---
HISTORY: upper back right pain COMPARISON: Comparison chest 08/19/2016. Comparison also made with CT scan of the chest dated 03/29/2014. No prior. TECHNIQUE: Chest PA and lateral FINDINGS: LUNGS: Lung garcia appear slightly hyperinflated; rule out underlying changes of COPD. Asymmetric somewhat lucent appearance of the left isaac thorax compared the right nonspecific. There may be some minor bibasilar atelectasis or scarring. PLEURA: No significant pleural effusion identified. No pneumothorax apparent. CARDIOVASCULAR: Heart size is upper limits of normal/borderline enlarged. Mitral valve calcification again noted OSSEOUS STRUCTURES: Mild multilevel degenerative spondylosis of the thoracic spine VISUALIZED UPPER ABDOMEN: Normal. OTHER FINDINGS: None. IMPRESSION: Mild hyperinflation ; rule out underlying changes of COPD. Asymmetric appearance of the hemithoraces left-sided which is slightly more lucent appearance than the right nonspecific. Mild bibasilar atelectasis or scarring.
[2016-12-04 20:25] VITALS: O2SAT 96
== END 2016-12-04 17:23 | disposition home or self-care (01) ==
LOC: C.ER 15:04
DX: S23.3XXA Sprain of ligaments of thoracic spine, initial encounter (principal); X58.XXXA Exposure to other specified factors, initial encounter

== ENCOUNTER 2017-01-29 13:10 | Inpatient (IN) | payer OTHER, MEDICAID ==
[2017-01-29 13:34] VITALS: BMI 21.2
[2017-01-29] MEDS ORDERED: Sodium Chloride 0.9% 500 ML IV ONE (13:34)
[2017-01-29] MEDS ORDERED: guaiFENesin 100 mg/5 ml Syrup UD PO STA (13:35)
[2017-01-29] MEDS ORDERED: guaiFENesin 100 mg/5 ml Syrup UD ONE (13:51)
[2017-01-29] MEDS ORDERED: Sodium Chloride 0.9% 1,000 ML ONE (13:52)
[2017-01-29] MEDS ORDERED: (Novolin R) Insulin Human Regular 100 units/ml vial IV STA (14:20)
[2017-01-29 14:28] LABS: BASO % 0.7 % (0.0-2.0); EOS # 0.1 K/uL (0.0-0.7); EOS % 3.2 % (0.0-4.0); HEMATOCRIT 35.2 % (34.0-47.0); LYMPH # 0.7 K/uL (1.0-4.3); LYMPH % 19.5 % (20.0-40.0); MEAN CELL VOLUME 85.5 fL (81.0-99.0); MEAN CORPUSCULAR HEMOGLOBIN 27.9 pg (27.0-31.0); MEAN CORPUSCULAR HGB CONC 32.6 g/dL (33.0-37.0); MEAN PLATELET VOLUME 8.7 fL (7.2-11.7); MONO # 0.3 K/uL (0.0-0.8); MONO % 7.5 % (0.0-10.0); NRBC % 0.1 % (0.0-2.0); RED CELL DISTRIBUTION WIDTH 15.1 % (11.5-14.5); WHITE BLOOD COUNT 3.8 K/uL (4.8-10.8)
[2017-01-29 14:29] LABS: CHLORIDE 99 mmol/L (98-107); POTASSIUM 4.2 mmol/L (3.6-5.2); SODIUM 131 mmol/L (132-148)
[2017-01-29] MEDS ORDERED: (Novolin R) Insulin Human Regular 100 units/ml vial ONE (14:30)
[2017-01-29 14:31] LABS: CARBON DIOXIDE 21 mmol/L (22-30); GFR AFRICAN-AMERICAN > 60
[2017-01-29 14:32] LABS: ALB/GLOB RATIO 1.2 (1.0-2.1); ALKALINE PHOSPHATASE 178 U/L (38-126); ALT/SGPT 60 U/L (9-52); AST/SGOT 72 U/L (14-36); BLOOD UREA NITROGEN 24 mg/dL (7-17); CALCIUM 8.4 mg/dl (8.6-10.4); GLUCOSE,RANDOM 338 mg/dL (65-105); TOTAL PROTEIN 7.2 g/dL (6.3-8.3)
--- NOTE | 2017-01-29 14:42 | RAD ---
PROCEDURE: CHEST RADIOGRAPH, 1 VIEW HISTORY: Shortness of breath COMPARISON: 12/04/2016 FINDINGS: LUNGS: Small left pleural effusion. Mild venous congestion. Right hilar prominence. Small nodular density in the right mid to lower lung zone laterally. PLEURA: Small left pleural effusion. CARDIOVASCULAR: Tortuous ectatic aorta. Calcification at the aortic knob. OSSEOUS STRUCTURES: Degenerative changes in the spine and shoulders. VISUALIZED UPPER ABDOMEN: Normal. OTHER FINDINGS: None. IMPRESSION: Small left pleural effusion. Mild venous congestion. Right hilar prominence. Small nodular density in the right mid to lower lung zone laterally.
--- NOTE | 2017-01-29 15:16 | C.PDOC ---
History Of Present Illness 76 y/o female presents to ED c/o dry non-productive cough and malaise since yesterday. Notes eating high sugar breakfast in the morning, and giving herself insulin. Pt reports back pain when coughing. No chest pain, shortness of breath , or fever. Time Seen by Provider: 01/29/17 13:28 Chief Complaint (Nursing): Chest Pain History Per: Patient History/Exam Limitations: no limitations Onset/Duration Of Symptoms: Days (1) Current Symptoms Are (Timing): Still Present Quality: "Pain" Associated Symptoms: denies: Nausea, Dyspnea, Diaphoresis, Syncope Alleviating Factors: None Recent travel outside of the [place]: No Additional History Per: Patient Past Medical History Reviewed: Historical Data, Nursing Documentation, Vital Signs Vital Signs: Last Vital Signs Temp 98.2 F 01/29/17 13:32 Pulse 78 01/29/17 13:32 Resp 22 01/29/17 13:32 BP 146/77 01/29/17 13:35 Pulse Ox 97 01/29/17 15:59 - Medical History PMH: Anxiety, Arthritis, Bipolar Disorder, Bronchitis, CAD, COPD, Depression, Diabetes, Fractures (L leg), Gastritis, HTN, Peripheral Edema, Pneumonia, Pneumothorax (effusion) Denies: Anemia, Asthma, Atrial Fibrillation, Cardia Arrhythmia, CHF, Crohn's Disease, Diverticulitis, Emphysema, Gall Bladder Disease, HIV, Hypercholesterolemia, Hyperthyroidism, Hypothyroidism, Mitral Valve Prolapse, Osteoporosis, Pancreatitis, Paranoia, Post Traumatic Stress Disorder, Pulmonary Embolism, Chronic Kidney Disease, Rheumatoid Arthritis, Schizophrenia, Sickle Cell Disease, Sexually Transmitted Disease, Sleep Apnea Surgical History: (x 2) Denies: Appendectomy, CABG, Carotid Endarterectomy, Cholecystectomy, Coronary Stent, Pacemaker, Tonsillectomy - [facility] Procedures CLOSED ENDOSCOPIC BIOPSY OF LARGE INTESTINE (08/31/13) DRAINAGE OF RIGHT LOWER LOBE BRONCHUS, ENDO, DIAGN (08/03/15) DRAINAGE OF RIGHT MIDDLE LOBE BRONCHUS, ENDO, DIAGN (08/03/15) DRAINAGE OF SPINAL CANAL, PERCUTANEOUS APPROACH, DIAGNOSTIC (08/03/15) ESOPHAGOGASTRODUODENOSCOPY [EGD] W/CLOSED BIOPSY (08/31/13) INSERT INTERCOSTAL CATH (03/15/14) INSERTION OF ENDOTRACHEAL AIRWAY INTO TRACHEA, VIA OPENING (08/03/15) INSERTION OF INFUSION DEV INTO SUP VENA CAVA, PERC APPROACH (08/03/15) OTHER PLEURAL INCISION (03/15/14) REMOVAL OF FB NOS (05/25/13) RESPIRATORY VENTILATION, GREATER THAN 96 CONSECUTIVE HOURS (08/03/15) TRANSFUSE NONAUT PLATELETS IN PERIPH VEIN, PERC (08/03/15) Family History: States: Unknown Family Hx - Social History Hx Tobacco Use: No Hx Alcohol Use: No Hx Substance Use: No - Immunization History Hx Tetanus Toxoid Vaccination: No Hx Influenza Vaccination: Yes Hx Pneumococcal Vaccination: Yes Review Of Systems Except As Marked, All Systems Reviewed And Found Negative. Constitutional: Negative for: Fever, Chills Cardiovascular: Negative for: Chest Pain, Palpitations Respiratory: Positive for: Cough. Negative for: Shortness of Breath, Sputum Gastrointestinal: Negative for: Nausea, Vomiting, Abdominal Pain Genitourinary: Negative for: Dysuria, Frequency, Hematuria Musculoskeletal: Positive for: Back Pain Physical Exam - Physical Exam Appears: Non-toxic, No Acute Distress, Other (elderly female) Skin: Normal Color, Warm, Dry Head: Atraumatic, Normacephalic Eye(s): bilateral: Normal Inspection Oral Mucosa: Dry Neck: Normal ROM, Supple Chest: Symmetrical Cardiovascular: Rhythm Regular, No Murmur Respiratory: Normal Breath Sounds, No Rales, No Rhonchi, No Wheezing Gastrointestinal/Abdominal: Soft, No Tenderness Back: No CVA Tenderness Extremity: Normal ROM, No Pedal Edema Neurological/Psych: Oriented x3, Normal Speech ED Course And Treatment - Laboratory Results Result Diagrams: 01/29/17 14:10 01/29/17 14:10 Lab Interpretation: Abnormal (elev glu) ECG: Interpreted By Me, Viewed By Me ECG Rhythm: Sinus Rhythm ECG Interpretation: No Acute Changes Rate From EC O2 Sat by Pulse Oximetry: 97 (RA) Pulse Ox Interpretation: Normal - Radiology CXR: Interpreted by Me CXR Interpretation: Yes: No Acute Disease Progress Note: IVF, insulin. recheck glu wnl, pt feels better. Reevaluation Time: 16:01 Reassessment Condition: Improved - Physician Consult Information Outcome Of Conversation: 1600: d/w Dr. Hall- PMD- ok to Med/Surg obs Medical Decision Making Medical Decision Making: uncontrolled DM, chest wall discomfort, anxiety Disposition Doctor Will See Patient In The: Hospital Counseled Patient/Family Regarding: Studies Performed, Diagnosis - Disposition Disposition: HOSPITALIZED Disposition Time: 16:02 Condition: GOOD Forms: [facility] (Greek) - Clinical Impression Clinical Impression: Pleuritic pain, Uncontrolled diabetes mellitus, Anxiety and depression, Cough - Scribe Statement The provider has reviewed the documentation as recorded by the Davidibe Olivia Cabrera All medical record entries made by the Davidibester were at my direction and personally dictated by me. I have reviewed the chart and agree that the record accurately reflects my personal performance of the history, physical exam, medical decision making, and the department course for this patient. I have also personally directed, reviewed, and agree with the discharge instructions and disposition.
[2017-01-29 15:52] LABS: RBC URINE 1 /hpf (0-3); URINE BILIRUBIN NEGATIVE (NEGATIVE); URINE BLOOD NEGATIVE (NEGATIVE); URINE COLOR Yellow (YELLOW); URINE GLUCOSE (UA) 3+ mg/dL (Normal); URINE KETONE NEGATIVE (NEGATIVE); URINE LEUKOCYTE ESTERASE 1+ Leu/uL (Negative); URINE PROTEIN NEGATIVE (NEGATIVE); URINE UROBILINOGEN NORMAL mg/dL (0.2-1.0); WBC URINE 10 /hpf (0-5)
[2017-01-29 18:34] VITALS: RESP 20
[2017-01-29] MEDS ORDERED: guaiFENesin 100 mg/5 ml Syrup UD PO PRN (22:02)
[2017-01-29] MEDS: (Novolin N) Insulin Human Isophane (NPH) 100 u/ml 10 ml vial SC SCH (22:17)
[2017-01-29] MEDS: (Novolin R) Insulin Human Regular 100 units/ml vial SC SCH (22:18)
--- NOTE | 2017-01-29 23:18 | CP.PCM.HP ---
History of Present Illness - History of Present Illness History of Present Illness: CC: cough, congestion, shortness of breath HPI: This is an elderly female well known to me with h/o type 2 DM on insulin, anxiety and depression, pt also is a known case of liver failure s/p liver transplantation over 15 years ago, she is on immusuppressive therapy, she is complaint to her diet, medication and follow up and on day of admission she came to my office with c/o cough, congestion, generalized weakness, tiredness and fatigue associated with shortness of breath, also c/o polyuria, polyphagia, polydipsia, thick yellow sputum production with chills and rigors, no nause, vomitting, diarrhea, no jiont pain, leg pain, back pain Present on Admission - Present on Admission Any Indicators Present on Admission: Yes Review of Systems - Review of Systems Systems not reviewed;Unavailable: Respiratory Distress - Constitutional Constitutional: Anorexia, Chills, Fatigue, Fever, Lethargy, Weakness - EENT Eyes: absent: As Per HPI, Blind Spots, Blurred Vision, Change in Vision, Decreased Night Vision, Diplopia, Discharge, Dry Eye, Exophthalmos, Floaters, Irritation, Itchy Eyes, Loss of Peripheral Vision, Pain, Photophobia, Requires Corrective Lenses, Sees Flashes, Spots in Vision, Tunnel Vision, Other Visual Disturbances, Loss of Vision, Other Nose/Mouth/Throat: absent: As Per HPI, Epistaxis, Nasal Congestion, Nasal Discharge, Nasal Obstruction, Nasal Trauma, Nose Pain, Post Nasal Drip, Sinus Pain, Sinus Pressure, Bleeding Gums, Change in Voice, Dental Pain, Dry Mouth, Dysphagia, Halitosis, Hoarsness, Lip Swelling, Mouth Lesions, Mouth Pain, Odynophagia, Sore Throat, Throat Swelling, Tongue Swelling, Facial Pain, Neck Pain, Neck Mass, Other - Cardiovascular Cardiovascular: Dyspnea - Respiratory Respiratory: Cough, Dyspnea on Exertion, Wheezing, Chest Congestion - Gastrointestinal Gastrointestinal: absent: As Per HPI, Abdominal Pain, Belching, Bloating, Change in Bowel Habits, Change in Stool Character, Coffee Ground Emesis, Constipation, Cramping, Diarrhea, Dyspepsia, Dysphagia, Early Satiety, Excessive Flatus, Fecal Incontinence, Heartburn, Hematemesis, Hematochezia, Loose Stools, Melena, Nausea, Odynophagia, Temesmus, Vomiting, Other - Genitourinary Genitourinary: Urinary Frequency. absent: As Per HPI, Change in Urinary Stream , Difficulty Urinating, Dysuria, Flank Pain, Hematuria, Pyuria, Nocturia, Urinary Incontinence, Urinary Hesitance, Urinary Urgency, Voiding Freq/Small Amts, Freq UTI, Hx Renal/Bladder Calculi, Hx /Renal Surgery, Bladder Distension, Other - Musculoskeletal Musculoskeletal: absent: As Per HPI, Abnormal Gait, Arthralgias, Atrophy, Back Pain, Deformity, Joint Swelling, Limited Range of Motion, Loss of Height, Muscle Cramps, Muscle Weakness, Myalgias, Neck Pain, Numbness, Radiating Pain into Limb, Stiffness, Tingling, Other - Integumentary Integumentary: absent: As Per HPI, Acne, Alopecia, Bleeding Lesions, Change in Hair, Change in Nails, Change in Pigmentation, Changing Lesions, Dry Skin, Erythema, Furuncle, Hirsutism, Lesions, New Lesions, Non-Healing Lesions, Photosensitivity, Pruritus, Rash, Skin Pain, Skin Ulcer, Sores, Striae, Swelling , Unusual Bruising, Wounds, Jaundice, Other - Neurological Neurological: absent: As Per HPI, Abnormal Gait, Abnormal Hearing, Abnormal Movements, Abnormal Speech, Behavioral Changes, Burning Sensations, Confusion, Convulsions, Disequilibrium, Dizziness, Numbness, Focal Weakness, Frequent Falls , Headaches, Lack of Coordination, Loss of Vision, Memory Loss, Paresthesias, Radicular Pain, Restless Legs, Sensory Deficit, Syncope, Tingling, Tremor, Vertigo, Weakness, Other Visual Disturbances, Other - Psychiatric Psychiatric: Anxiety, Depression. absent: As Per HPI, Abnormal Sleep Pattern, Anhedonia, Auditory Hallucinations, Behavioral Changes, Change in Appetite, Change in Libido, Confusion, Difficulty Concentrating, Hallucinations, Homicidal Ideation, Hopelessness, Irritability, Memory Loss, Mood Swings, Panic Attacks, Paranoia, Suicidal Ideation, Visual Hallucinations, Tactile Hallucinations, Other - Endocrine Endocrine: Polydipsia, Polyphagia, Polyuria. absent: As Per HPI, Change in Body Appearance, Change in Libido, Cold Intolorance, Deepening of Voice, Excessive Sweating, Fatigue, Flushing, Heat Intolorance, Increase in Ring/Shoe/ Hat Size, Palpitations, Other Past Patient History - Infectious Disease Hx of Infectious Diseases: None - Past Medical History & Family History Past Medical History?: Yes - Past Social History Smoking Status: Never Smoked - CARDIAC Hx Atrial Fibrillation: No Hx Cardia Arrhythmia: No Hx Congestive Heart Failure: No Hx Hypercholesterolemia: No Hx Hypertension: Yes Hx Mitral Valve Prolapse: No Hx Pacemaker: No Hx Peripheral Edema: Yes - PULMONARY Hx Asthma: No Hx Bronchitis: Yes Hx Chronic Obstructive Pulmonary Disease (COPD): Yes Hx Emphysema: No Hx Pneumonia: Yes Hx Pulmonary Embolism: No Hx Sleep Apnea: No - NEUROLOGICAL Hx Neurological Disorder: No - HEENT Hx HEENT Problems: No - RENAL Hx Chronic Kidney Disease: No - ENDOCRINE/METABOLIC Hx Diabetes Mellitus Type 2: Yes Hx Hyperthyroidism: No Hx Hypothyroidism: No - HEMATOLOGICAL/ONCOLOGICAL Hx Anemia: No Hx Human Immunodeficiency Virus (HIV): No Hx Sickle Cell Disease: No - INTEGUMENTARY Hx Dermatological Problems: No - MUSCULOSKELETAL/RHEUMATOLOGICAL Hx Arthritis: Yes Hx Falls: Yes (august 2016) Hx Fractures: Yes (L leg) Hx Osteoporosis: No Hx Rheumatoid Arthritis: No - GASTROINTESTINAL Hx Crohn's Disease: No Hx Diverticulitis: No Hx Gall Bladder Disease: No Hx Gastritis: Yes Hx Pancreatitis: No - GENITOURINARY/GYNECOLOGICAL Hx Sexually Transmitted Disorders: No - PSYCHIATRIC Hx Anxiety: Yes Hx Bipolar Disorder: Yes Hx Depression: Yes Hx Paranoia: No Hx Post Traumatic Stress Disorder: No Hx Schizophrenia: No Hx Substance Use: No - SURGICAL HISTORY Hx Appendectomy: No Hx Carotid Endarterectomy: No Hx Cholecystectomy: No Hx Coronary Artery Bypass Graft: No Hx Coronary Stent: No Hx Liver Transplant: Yes (1999) Hx Tonsillectomy: No Other/Comment: Thoracentesis - ANESTHESIA Hx Anesthesia: Yes Hx Anesthesia Reactions: No Hx Malignant Hyperthermia: No Has any member of the family had a problem w/ anesthesia?: No Meds Allergies/Adverse Reactions: Allergies Allergy/AdvReac Type Severity Reaction Status Date / Time No Known Allergies Allergy Verified 01/29/17 13:32 Physical Exam - Constitutional Appears: No Acute Distress - Head Exam Head Exam: ATRAUMATIC, NORMAL INSPECTION, NORMOCEPHALIC - Eye Exam Eye Exam: EOMI, Normal appearance, PERRL Pupil Exam: NORMAL ACCOMODATION, PERRL - Respiratory Exam Respiratory Exam: Decreased Breath Sounds, Wheezes - Cardiovascular Exam Cardiovascular Exam: REGULAR RHYTHM - GI/Abdominal Exam GI & Abdominal Exam: Normal Bowel Sounds, Soft, Tenderness - Rectal Exam Rectal Exam: Deferred Results - Vital Signs Recent Vital Signs: Last Vital Signs Temp 97.7 F 01/29/17 17:57 Pulse 71 01/29/17 17:57 Resp 20 01/29/17 17:57 BP 131/79 01/29/17 17:57 Pulse Ox 98 01/29/17 17:57 - Labs Result Diagrams: 01/29/17 14:10 01/29/17 14:10 Labs: Laboratory Results - last 24 hr 01/29/17 01/29/17 01/29/17 13:42 14:10 14:10 WBC 3.8 L RBC 4.11 Hgb 11.5 Hct 35.2 MCV 85.5 MCH 27.9 MCHC 32.6 L RDW 15.1 H Plt Count 90 L D MPV 8.7 Neut % (Auto) 69.1 Lymph % (Auto) 19.5 L [place] % (Auto) 7.5 Eos % (Auto) 3.2 Baso % (Auto) 0.7 Neut # 2.6 Lymph # 0.7 L [place] # 0.3 Eos # 0.1 Baso # 0.0 Differential Comment Sodium 131 L Potassium 4.2 Chloride 99 Carbon Dioxide 21 L Anion Gap 15 BUN 24 H Creatinine 0.9 Est GFR ( Amer) > 60 Est GFR (Non-Af Amer) > 60 POC Glucose (mg/dL) 432 H* Random Glucose 338 H Calcium 8.4 L Total Bilirubin 1.0 AST 72 H ALT 60 H Alkaline Phosphatase 178 H Troponin I < 0.0120 NT-Pro-B Natriuret Pep 1390 H Total Protein 7.2 Albumin 4.0 Globulin 3.2 Albumin/Globulin Ratio 1.2 Urine Color Urine Clarity Urine pH Ur Specific [place] Urine Protein Urine Glucose (UA) Urine Ketones Urine Blood Urine Nitrate Urine Bilirubin Urine Urobilinogen Ur Leukocyte Esterase Urine WBC (Auto) Urine RBC (Auto) Ur Squamous Epith Cells Influenza Typ A,B (EIA) 01/29/17 01/29/17 01/29/17 15:04 15:39 15:54 WBC RBC Hgb Hct MCV MCH MCHC RDW Plt Count MPV Neut % (Auto) Lymph % (Auto) [place] % (Auto) Eos % (Auto) Baso % (Auto) Neut # Lymph # [place] # Eos # Baso # Differential Comment Sodium Potassium Chloride Carbon Dioxide Anion Gap BUN Creatinine Est GFR ( Amer) Est GFR (Non-Af Amer) POC Glucose (mg/dL) 208 H Random Glucose Calcium Total Bilirubin AST ALT Alkaline Phosphatase Troponin I NT-Pro-B Natriuret Pep Total Protein Albumin Globulin Albumin/Globulin Ratio Urine Color Yellow Urine Clarity Clear Urine pH 6.0 Ur Specific [place] 1.020 Urine Protein Negative Urine Glucose (UA) 3+ H Urine Ketones Negative Urine Blood Negative Urine Nitrate Negative Urine Bilirubin Negative Urine Urobilinogen Normal Ur Leukocyte Esterase 1+ H Urine WBC (Auto) 10 H Urine RBC (Auto) 1 Ur Squamous Epith Cells 2 Influenza Typ A,B (EIA) Negative for flu a/b 01/29/17 01/29/17 16:13 21:33 WBC RBC Hgb Hct MCV MCH MCHC RDW Plt Count MPV Neut % (Auto) Lymph % (Auto) [place] % (Auto) Eos % (Auto) Baso % (Auto) Neut # Lymph # [place] # Eos # Baso # Differential Comment Sodium Potassium Chloride Carbon Dioxide Anion Gap BUN Creatinine Est GFR ( Amer) Est GFR (Non-Af Amer) POC Glucose (mg/dL) 58 L 242 H Random Glucose Calcium Total Bilirubin AST ALT Alkaline Phosphatase Troponin I NT-Pro-B Natriuret Pep Total Protein Albumin Globulin Albumin/Globulin Ratio Urine Color Urine Clarity Urine pH Ur Specific [place] Urine Protein Urine Glucose (UA) Urine Ketones Urine Blood Urine Nitrate Urine Bilirubin Urine Urobilinogen Ur Leukocyte Esterase Urine WBC (Auto) Urine RBC (Auto) Ur Squamous Epith Cells Influenza Typ A,B (EIA) Assessment & Plan (1) Cough Status: Acute (2) Uncontrolled diabetes mellitus Status: Acute (3) Anxiety and depression Status: Chronic Priority: Low (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
[2017-01-30] MEDS: (Novolin R) Insulin Human Regular 100 units/ml vial SC SCH ×4 (08:29→21:54)
[2017-01-30] MEDS: (Novolog) Insulin Aspart, Recombinant 100 u/ml 10 ml vial SC SCH ×3 (08:30→17:58)
[2017-01-30] MEDS: Magnesium Chloride 64 mg ER Tab PO SCH ×4 (09:31→18:07)
[2017-01-30] MEDS: Enoxaparin 40 mg Syringe SC SCH (09:32)
[2017-01-30] MEDS ORDERED: Ergocalciferol 50,000 Intl Units Cap PO SCH (10:00)
[2017-01-30] MEDS: (Novolin N) Insulin Human Isophane (NPH) 100 u/ml 10 ml vial SC SCH ×2 (10:40→17:57)
[2017-01-30] MEDS: Azithromycin 500 MG in Sodium Chloride 0.9% 250 ML IVPB SCH (11:15)
[2017-01-30] MEDS: guaiFENesin 100 mg/5 ml Syrup UD PO PRN (17:56)
[2017-01-30] MEDS: guaiFENesin 600 mg ER Tab PO SCH (17:58)
--- NOTE | 2017-01-30 19:07 | RAD ---
HISTORY: pna COMPARISON: Comparison is made to 01/29/2017 TECHNIQUE: Chest PA and lateral FINDINGS: LUNGS: No significant interval change in the lungs noted since the previous study. PLEURA: No significant pleural effusion identified. No pneumothorax apparent. CARDIOVASCULAR: Normal. OSSEOUS STRUCTURES: No significant abnormalities. VISUALIZED UPPER ABDOMEN: Normal. OTHER FINDINGS: None. IMPRESSION: No interval change.
[2017-01-30] MEDS: Albuterol-Ipratrop 3 mg / 0.5 (3 ml) UD INH SCH (19:34)
--- NOTE | 2017-01-30 22:04 | CP.PCM.PN ---
Subjective - Date & Time of Evaluation Date of Evaluation: 01/30/17 Time of Evaluation: 20:00 - Subjective Subjective: Pt seen and examined,coughing and wheezing, less short of breath. Objective - Vital Signs/Intake and Output Vital Signs (last 24 hours): Temp Pulse Resp BP Pulse Ox 98.8 F 67 20 112/69 96 01/30/17 15:00 01/30/17 15:00 01/30/17 15:00 01/30/17 15:00 01/30/17 15:00 Intake and Output: 01/30/17 01/31/17 18:59 06:59 Intake Total 100 Balance 100 - Medications Medications: Current Medications Albuterol/Ipratropium (Duoneb 3 Mg/0.5 Mg (3 Ml) Ud) 3 ml INH RQ6 [facility] Last Admin: 01/30/17 19:34 Dose: Not Given Clonidine HCl (Catapres) 0.1 mg PO BID [facility] Last Admin: 01/30/17 17:59 Dose: 0.1 mg Enoxaparin Sodium (Lovenox) 40 mg SC DAILY [facility] Last Admin: 01/30/17 09:32 Dose: 40 mg Ergocalciferol (Drisdol 50,000 Intl Units Cap) 1 cap PO QWK [facility] Last Admin: 01/30/17 09:32 Dose: 1 cap Famotidine (Pepcid) 20 mg PO DAILY [facility] Last Admin: 01/30/17 09:32 Dose: 20 mg Guaifenesin (Robitussin) 200 mg PO Q6H PRN PRN Reason: Cough Last Admin: 01/30/17 17:56 Dose: 200 mg Guaifenesin (Mucinex La) 600 mg PO BID [facility] Last Admin: 01/30/17 17:58 Dose: 600 mg Ceftriaxone Sodium 1 gm/ (Dextrose) 100 mls @ 100 mls/hr IVPB DAILY [facility] Last Admin: 01/30/17 10:14 Dose: 100 mls/hr Azithromycin 500 mg/ Sodium (Chloride) 250 mls @ 250 mls/hr IVPB DAILY [facility] Last Admin: 01/30/17 11:15 Dose: 250 mls/hr Insulin Aspart (Novolog) 6 unit SC ACTID [facility] Last Admin: 01/30/17 17:58 Dose: 6 unit Insulin Human NPH (Novolin N) 10 unit SC ACBD [facility] Last Admin: 01/30/17 17:57 Dose: 10 unit Insulin Human Regular (Novolin R) 0 unit SC ACHS [facility] PRN Reason: Protocol Last Admin: 01/30/17 21:54 Dose: 2 unit Lorazepam (Ativan) 0.5 mg PO BID [facility] Last Admin: 01/30/17 18:07 Dose: Not Given Magnesium Chloride (Slow-Mag) 64 mg PO TID [facility] Last Admin: 01/30/17 18:07 Dose: Not Given Tacrolimus (Prograf Cap) 1 mg PO Q12 [facility] Last Admin: 01/30/17 21:10 Dose: 1 mg Temazepam (Restoril) 30 mg PO HS PRN PRN Reason: Insomnia Last Admin: 01/30/17 21:54 Dose: 30 mg - Labs Labs: 01/29/17 14:10 01/29/17 14:10 - Constitutional Appears: No Acute Distress - Head Exam Head Exam: ATRAUMATIC, NORMAL INSPECTION, NORMOCEPHALIC - Eye Exam Eye Exam: EOMI, Normal appearance, PERRL Pupil Exam: NORMAL ACCOMODATION, PERRL - Respiratory Exam Respiratory Exam: Decreased Breath Sounds, Rales, Rhonchi - Cardiovascular Exam Cardiovascular Exam: REGULAR RHYTHM, +S1, +S2 - GI/Abdominal Exam GI & Abdominal Exam: Soft, Normal Bowel Sounds. 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
[2017-01-31] MEDS: guaiFENesin 100 mg/5 ml Syrup UD PO PRN ×3 (00:55→21:43)
[2017-01-31] MEDS: Albuterol-Ipratrop 3 mg / 0.5 (3 ml) UD INH SCH ×4 (01:29→19:13)
[2017-01-31 07:42] LABS: CHLORIDE 99 mmol/L (98-107); POTASSIUM 4.3 mmol/L (3.6-5.2); SODIUM 132 mmol/L (132-148)
[2017-01-31 07:44] LABS: BILIRUBIN,TOTAL 0.5 mg/dL (0.2-1.3); CARBON DIOXIDE 24 mmol/L (22-30); GFR AFRICAN-AMERICAN > 60
[2017-01-31 07:45] LABS: ALB/GLOB RATIO 0.8 (1.0-2.1); ALKALINE PHOSPHATASE 166 U/L (38-126); ALT/SGPT 60 U/L (9-52); AST/SGOT 55 U/L (14-36); BLOOD UREA NITROGEN 13 mg/dL (7-17); CALCIUM 8.2 mg/dl (8.6-10.4); GLUCOSE,RANDOM 243 mg/dL (65-105); TOTAL PROTEIN 7.1 g/dL (6.3-8.3)
[2017-01-31 08:16] LABS: HEMATOCRIT 31.6 % (34.0-47.0); MEAN CELL VOLUME 87.1 fL (81.0-99.0); MEAN CORPUSCULAR HEMOGLOBIN 29.6 pg (27.0-31.0); MEAN PLATELET VOLUME 8.8 fL (7.2-11.7); RED CELL DISTRIBUTION WIDTH 14.7 % (11.5-14.5); WHITE BLOOD COUNT 2.2 K/uL (4.8-10.8)
[2017-01-31] MEDS: (Novolin R) Insulin Human Regular 100 units/ml vial SC SCH ×4 (08:30→21:35)
[2017-01-31] MEDS: (Novolog) Insulin Aspart, Recombinant 100 u/ml 10 ml vial SC SCH ×3 (08:30→18:15)
[2017-01-31] MEDS: (Novolin N) Insulin Human Isophane (NPH) 100 u/ml 10 ml vial SC SCH ×3 (08:30→21:37)
[2017-01-31] MEDS: guaiFENesin 600 mg ER Tab PO SCH ×2 (10:18→18:12)
[2017-01-31] MEDS: Magnesium Chloride 64 mg ER Tab PO SCH ×3 (10:18→18:12)
[2017-01-31] MEDS: Enoxaparin 40 mg Syringe SC SCH (10:19)
[2017-01-31] MEDS: Azithromycin 500 MG in Sodium Chloride 0.9% 250 ML IVPB SCH (10:29)
[2017-01-31] MEDS ORDERED: (Novolin N) Insulin Human Isophane (NPH) 100 u/ml 10 ml vial SC ONE (21:50)
--- NOTE | 2017-01-31 23:32 | CP.PCM.PN ---
Subjective - Date & Time of Evaluation Date of Evaluation: 01/31/17 Time of Evaluation: 19:10 - Subjective Subjective: Pt seen and examined at bedside, still couging, wheezing, short of breath Objective - Vital Signs/Intake and Output Vital Signs (last 24 hours): Temp Pulse Resp BP Pulse Ox 98.5 F 76 20 99/63 L 100 01/31/17 15:00 01/31/17 15:00 01/31/17 15:00 01/31/17 15:00 01/31/17 15:00 Intake and Output: 01/31/17 02/01/17 18:59 06:59 Intake Total 830 400 Balance 830 400 - Medications Medications: Current Medications Albuterol/Ipratropium (Duoneb 3 Mg/0.5 Mg (3 Ml) Ud) 3 ml INH RQ6 [facility] Last Admin: 01/31/17 19:13 Dose: 3 ml Clonidine HCl (Catapres) 0.1 mg PO BID [facility] Last Admin: 01/31/17 18:11 Dose: Not Given Enoxaparin Sodium (Lovenox) 40 mg SC DAILY [facility] Last Admin: 01/31/17 10:19 Dose: 40 mg Ergocalciferol (Drisdol 50,000 Intl Units Cap) 1 cap PO QWK [facility] Last Admin: 01/30/17 09:32 Dose: 1 cap Famotidine (Pepcid) 20 mg PO DAILY [facility] Last Admin: 01/31/17 10:18 Dose: 20 mg Guaifenesin (Robitussin) 200 mg PO Q6H PRN PRN Reason: Cough Last Admin: 01/31/17 21:43 Dose: 200 mg Guaifenesin (Mucinex La) 600 mg PO BID [facility] Last Admin: 01/31/17 18:12 Dose: 600 mg Ceftriaxone Sodium 1 gm/ (Dextrose) 100 mls @ 100 mls/hr IVPB DAILY [facility] Last Admin: 01/31/17 10:18 Dose: 100 mls/hr Azithromycin 500 mg/ Sodium (Chloride) 250 mls @ 250 mls/hr IVPB DAILY [facility] Last Admin: 01/31/17 10:29 Dose: 250 mls/hr Insulin Aspart (Novolog) 6 unit SC ACTID [facility] Last Admin: 01/31/17 18:15 Dose: Not Given Insulin Human NPH (Novolin N) 10 unit SC ACBD [facility] Last Admin: 01/31/17 18:13 Dose: Not Given Insulin Human Regular (Novolin R) 0 unit SC ACHS [facility] PRN Reason: Protocol Last Admin: 01/31/17 21:35 Dose: 3 unit Lorazepam (Ativan) 0.5 mg PO BID [facility] Last Admin: 01/31/17 18:12 Dose: Not Given Magnesium Chloride (Slow-Mag) 64 mg PO TID [facility] Last Admin: 01/31/17 18:12 Dose: Not Given Tacrolimus (Prograf Cap) 1 mg PO Q12 [facility] Last Admin: 01/31/17 21:43 Dose: 1 mg Temazepam (Restoril) 30 mg PO HS PRN PRN Reason: Insomnia Last Admin: 01/31/17 22:00 Dose: 30 mg - Labs Labs: 01/31/17 07:14 01/31/17 07:14 Assessment and Plan (1) Cough Status: Acute (2) Uncontrolled diabetes mellitus Status: Acute (3) Anxiety and depression Status: Chronic (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
[2017-02-01] MEDS: Albuterol-Ipratrop 3 mg / 0.5 (3 ml) UD INH SCH ×4 (01:06→20:04)
[2017-02-01] MEDS: (Novolin N) Insulin Human Isophane (NPH) 100 u/ml 10 ml vial SC SCH ×2 (08:30→17:00)
[2017-02-01] MEDS: (Novolin R) Insulin Human Regular 100 units/ml vial SC SCH ×4 (08:30→22:06)
[2017-02-01] MEDS: (Novolog) Insulin Aspart, Recombinant 100 u/ml 10 ml vial SC SCH ×3 (08:30→17:00)
[2017-02-01] MEDS: guaiFENesin 100 mg/5 ml Syrup UD PO PRN ×2 (08:37→22:43)
[2017-02-01] MEDS: guaiFENesin 600 mg ER Tab PO SCH ×2 (09:52→18:06)
[2017-02-01] MEDS: Magnesium Chloride 64 mg ER Tab PO SCH ×3 (09:53→18:10)
[2017-02-01] MEDS: Enoxaparin 40 mg Syringe SC SCH (09:54)
[2017-02-01] MEDS: Azithromycin 500 MG in Sodium Chloride 0.9% 250 ML IVPB SCH (09:58)
--- NOTE | 2017-02-01 23:39 | CP.PCM.PN ---
Subjective - Date & Time of Evaluation Date of Evaluation: 02/01/17 Time of Evaluation: 18:00 - Subjective Subjective: Pt seen and evaluated by me at bedside, charts and meds reviewed, coughing and less short of breath. blood sugars are fluctuating Objective - Vital Signs/Intake and Output Vital Signs (last 24 hours): Temp Pulse Resp BP Pulse Ox 98.1 F 74 20 122/78 97 02/01/17 15:00 02/01/17 15:00 02/01/17 15:00 02/01/17 15:00 02/01/17 15:00 Intake and Output: 02/01/17 02/02/17 18:59 06:59 Intake Total 830 300 Balance 830 300 - Medications Medications: Current Medications Albuterol/Ipratropium (Duoneb 3 Mg/0.5 Mg (3 Ml) Ud) 3 ml INH RQ6 [facility] Last Admin: 02/01/17 20:04 Dose: Not Given Clonidine HCl (Catapres) 0.1 mg PO BID [facility] Last Admin: 02/01/17 18:08 Dose: 0.1 mg Enoxaparin Sodium (Lovenox) 40 mg SC DAILY [facility] Last Admin: 02/01/17 09:54 Dose: 40 mg Ergocalciferol (Drisdol 50,000 Intl Units Cap) 1 cap PO QWK [facility] Last Admin: 01/30/17 09:32 Dose: 1 cap Famotidine (Pepcid) 20 mg PO DAILY [facility] Last Admin: 02/01/17 09:52 Dose: 20 mg Guaifenesin (Robitussin) 200 mg PO Q6H PRN PRN Reason: Cough Last Admin: 02/01/17 22:43 Dose: 200 mg Guaifenesin (Mucinex La) 600 mg PO BID [facility] Last Admin: 02/01/17 18:06 Dose: Not Given Ceftriaxone Sodium 1 gm/ (Dextrose) 100 mls @ 100 mls/hr IVPB DAILY [facility] Last Admin: 02/01/17 09:58 Dose: 100 mls/hr Azithromycin 500 mg/ Sodium (Chloride) 250 mls @ 250 mls/hr IVPB DAILY [facility] Last Admin: 02/01/17 09:58 Dose: 250 mls/hr Insulin Aspart (Novolog) 6 unit SC ACTID [facility] Last Admin: 02/01/17 17:00 Dose: 6 unit Insulin Human NPH (Novolin N) 10 unit SC ACBD [facility] Last Admin: 02/01/17 17:00 Dose: 10 unit Insulin Human Regular (Novolin R) 0 unit SC ACHS [facility] PRN Reason: Protocol Last Admin: 02/01/17 22:06 Dose: Not Given Lorazepam (Ativan) 0.5 mg PO BID [facility] Last Admin: 02/01/17 18:09 Dose: 0.5 mg Magnesium Chloride (Slow-Mag) 64 mg PO TID [facility] Last Admin: 02/01/17 18:10 Dose: Not Given Tacrolimus (Prograf Cap) 1 mg PO Q12 [facility] Last Admin: 02/01/17 22:08 Dose: 1 mg Temazepam (Restoril) 30 mg PO HS PRN PRN Reason: Insomnia Last Admin: 02/01/17 22:43 Dose: 30 mg - Labs Labs: 01/31/17 07:14 01/31/17 07:14 Assessment and Plan (1) Cough Status: Acute (2) Uncontrolled diabetes mellitus Status: Acute (3) Anxiety and depression Status: Chronic (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
[2017-02-02] MEDS: Albuterol-Ipratrop 3 mg / 0.5 (3 ml) UD INH SCH ×4 (02:02→19:37)
[2017-02-02] MEDS: (Novolin R) Insulin Human Regular 100 units/ml vial SC SCH ×4 (08:00→22:00)
[2017-02-02] MEDS: (Novolin N) Insulin Human Isophane (NPH) 100 u/ml 10 ml vial SC SCH ×2 (08:06→16:57)
[2017-02-02] MEDS: (Novolog) Insulin Aspart, Recombinant 100 u/ml 10 ml vial SC SCH ×3 (09:08→16:58)
[2017-02-02] MEDS: Magnesium Chloride 64 mg ER Tab PO SCH ×3 (09:38→17:37)
[2017-02-02] MEDS: Enoxaparin 40 mg Syringe SC SCH (09:43)
[2017-02-02] MEDS: guaiFENesin 600 mg ER Tab PO SCH ×2 (09:44→17:35)
[2017-02-02] MEDS: Azithromycin 500 MG in Sodium Chloride 0.9% 250 ML IVPB SCH (10:57)
--- NOTE | 2017-02-02 22:33 | CP.PCM.PN ---
Subjective - Date & Time of Evaluation Date of Evaluation: 02/02/17 Time of Evaluation: 19:40 - Subjective Subjective: Pt seen and examined, is having less cough, less short of breath Objective - Vital Signs/Intake and Output Vital Signs (last 24 hours): Temp Pulse Resp BP Pulse Ox 98.0 F 69 20 132/79 97 02/02/17 15:00 02/02/17 15:00 02/02/17 15:00 02/02/17 15:00 02/02/17 15:00 Intake and Output: 02/02/17 02/03/17 18:59 06:59 Intake Total 850 Output Total 3 Balance 847 - Medications Medications: Current Medications Albuterol/Ipratropium (Duoneb 3 Mg/0.5 Mg (3 Ml) Ud) 3 ml INH RQ6 [facility] Last Admin: 02/02/17 19:37 Dose: 3 ml Azithromycin (Zithromax) 500 mg PO DAILY [facility] Clonidine HCl (Catapres) 0.1 mg PO BID [facility] Last Admin: 02/02/17 17:33 Dose: 0.1 mg Enoxaparin Sodium (Lovenox) 40 mg SC DAILY [facility] Last Admin: 02/02/17 09:43 Dose: 40 mg Ergocalciferol (Drisdol 50,000 Intl Units Cap) 1 cap PO QWK [facility] Last Admin: 01/30/17 09:32 Dose: 1 cap Famotidine (Pepcid) 20 mg PO DAILY [facility] Last Admin: 02/02/17 09:39 Dose: 20 mg Guaifenesin (Robitussin) 200 mg PO Q6H PRN PRN Reason: Cough Last Admin: 02/01/17 22:43 Dose: 200 mg Guaifenesin (Mucinex La) 600 mg PO BID [facility] Last Admin: 02/02/17 17:35 Dose: Not Given Insulin Aspart (Novolog) 6 unit SC ACTID [facility] Last Admin: 02/02/17 16:58 Dose: Not Given Insulin Human NPH (Novolin N) 10 unit SC ACBD [facility] Last Admin: 02/02/17 16:57 Dose: Not Given Insulin Human Regular (Novolin R) 0 unit SC ACHS [facility] PRN Reason: Protocol Last Admin: 02/02/17 16:57 Dose: Not Given Lorazepam (Ativan) 0.5 mg PO BID [facility] Last Admin: 02/02/17 17:32 Dose: 0.5 mg Magnesium Chloride (Slow-Mag) 64 mg PO TID [facility] Last Admin: 02/02/17 17:37 Dose: Not Given Tacrolimus (Prograf Cap) 1 mg PO Q12 [facility] Last Admin: 02/02/17 22:30 Dose: 1 mg Temazepam (Restoril) 30 mg PO HS PRN PRN Reason: Insomnia Last Admin: 02/02/17 22:30 Dose: 30 mg - Labs Labs: 01/31/17 07:14 01/31/17 07:14 - Constitutional Appears: No Acute Distress - Head Exam Head Exam: ATRAUMATIC, NORMAL INSPECTION, NORMOCEPHALIC - Eye Exam Eye Exam: EOMI, Normal appearance, PERRL Pupil Exam: NORMAL ACCOMODATION, PERRL - Respiratory Exam Respiratory Exam: Decreased Breath Sounds, Rales, Rhonchi - Cardiovascular Exam Cardiovascular Exam: REGULAR RHYTHM, +S1, +S2. absent: Murmur - GI/Abdominal Exam GI & Abdominal Exam: Soft, Normal Bowel Sounds. 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
[2017-02-03] MEDS: Albuterol-Ipratrop 3 mg / 0.5 (3 ml) UD INH SCH ×4 (01:35→19:44)
[2017-02-03 08:28] LABS: BASO % 0.9 % (0.0-2.0); EOS # 0.2 K/uL (0.0-0.7); EOS % 7.4 % (0.0-4.0); HEMATOCRIT 32.6 % (34.0-47.0); LYMPH # 0.7 K/uL (1.0-4.3); LYMPH % 33.6 % (20.0-40.0); MEAN CELL VOLUME 85.9 fL (81.0-99.0); MEAN CORPUSCULAR HGB CONC 33.7 g/dL (33.0-37.0); MEAN PLATELET VOLUME 8.5 fL (7.2-11.7); MONO # 0.2 K/uL (0.0-0.8); MONO % 7.7 % (0.0-10.0); WHITE BLOOD COUNT 2.1 K/uL (4.8-10.8)
[2017-02-03] MEDS: (Novolin N) Insulin Human Isophane (NPH) 100 u/ml 10 ml vial SC SCH ×2 (08:28→17:01)
[2017-02-03] MEDS: (Novolog) Insulin Aspart, Recombinant 100 u/ml 10 ml vial SC SCH ×3 (08:29→17:02)
[2017-02-03] MEDS: (Novolin R) Insulin Human Regular 100 units/ml vial SC SCH ×4 (08:29→21:48)
[2017-02-03 08:41] LABS: CHLORIDE 96 mmol/L (98-107); POTASSIUM 4.5 mmol/L (3.6-5.2); SODIUM 128 mmol/L (132-148)
[2017-02-03 08:43] LABS: BILIRUBIN,TOTAL 0.8 mg/dL (0.2-1.3); CARBON DIOXIDE 25 mmol/L (22-30); GFR AFRICAN-AMERICAN > 60
[2017-02-03 08:44] LABS: ALB/GLOB RATIO 1.2 (1.0-2.1); ALKALINE PHOSPHATASE 168 U/L (38-126); ALT/SGPT 52 U/L (9-52); AST/SGOT 52 U/L (14-36); BLOOD UREA NITROGEN 18 mg/dL (7-17); CALCIUM 8.4 mg/dl (8.6-10.4); TOTAL PROTEIN 6.1 g/dL (6.3-8.3)
[2017-02-03 08:53] LABS: GLUCOSE,RANDOM 418 mg/dL (65-105)
[2017-02-03] MEDS: Enoxaparin 40 mg Syringe SC SCH (09:17)
[2017-02-03] MEDS: Magnesium Chloride 64 mg ER Tab PO SCH ×3 (09:18→17:31)
[2017-02-03] MEDS: guaiFENesin 600 mg ER Tab PO SCH ×2 (09:18→17:31)
--- NOTE | 2017-02-03 11:11 | CARD ---
APPROVED REPORT EKG Measurement Heart [id number] <Conclusion> Normal sinus rhythm Minimal voltage criteria for LVH, may be normal variant Borderline ECG
[2017-02-03] MEDS: Sodium Chloride 0.9% 1,000 ML IV SCH (14:19)
[2017-02-03] MEDS ORDERED: Miconazole 2% Vaginal Cream(45 gm) VG SCH (22:00)
--- NOTE | 2017-02-03 23:08 | CP.PCM.PN ---
Subjective - Date & Time of Evaluation Date of Evaluation: 02/03/17 Time of Evaluation: 19:35 - Subjective Subjective: Pt is feeling better, no shortness of breath, pneumonia improving blood sugars are high, pt is on antibiotics and for tight sugar control Objective - Vital Signs/Intake and Output Vital Signs (last 24 hours): Temp Pulse Resp BP Pulse Ox 98.4 F 88 20 136/70 97 02/03/17 16:00 02/03/17 16:00 02/03/17 16:00 02/03/17 16:00 02/03/17 16:00 Intake and Output: 02/03/17 02/04/17 18:59 06:59 Intake Total 750 Balance 750 - Medications Medications: Current Medications Albuterol/Ipratropium (Duoneb 3 Mg/0.5 Mg (3 Ml) Ud) 3 ml INH RQ6 [facility] Last Admin: 02/03/17 19:44 Dose: Not Given Azithromycin (Zithromax) 500 mg PO DAILY [facility] Last Admin: 02/03/17 09:18 Dose: 500 mg Clonidine HCl (Catapres) 0.1 mg PO BID [facility] Last Admin: 02/03/17 17:30 Dose: 0.1 mg Enoxaparin Sodium (Lovenox) 40 mg SC DAILY [facility] Last Admin: 02/03/17 09:17 Dose: Not Given Ergocalciferol (Drisdol 50,000 Intl Units Cap) 1 cap PO QWK [facility] Last Admin: 01/30/17 09:32 Dose: 1 cap Famotidine (Pepcid) 20 mg PO DAILY [facility] Last Admin: 02/03/17 09:18 Dose: 20 mg Guaifenesin (Robitussin) 200 mg PO Q6H PRN PRN Reason: Cough Last Admin: 02/01/17 22:43 Dose: 200 mg Guaifenesin (Mucinex La) 600 mg PO BID [facility] Last Admin: 02/03/17 17:31 Dose: Not Given Sodium Chloride (Sodium Chloride 0.9%) 1,000 mls @ 50 mls/hr IV .Q20H [facility] Last Admin: 02/03/17 14:19 Dose: 50 mls/hr Insulin Aspart (Novolog) 6 unit SC ACTID [facility] Last Admin: 02/03/17 17:02 Dose: Not Given Insulin Human NPH (Novolin N) 10 unit SC ACBD [facility] Last Admin: 02/03/17 17:01 Dose: 10 unit Insulin Human Regular (Novolin R) 0 unit SC ACHS MANJU PRN Reason: Protocol Last Admin: 02/03/17 21:48 Dose: 2 unit Lorazepam (Ativan) 0.5 mg PO BID [facility] Last Admin: 02/03/17 17:29 Dose: 0.5 mg Magnesium Chloride (Slow-Mag) 64 mg PO TID [facility] Last Admin: 02/03/17 17:31 Dose: Not Given Miconazole Nitrate (Monistat 7 Vaginal Cream) 0 ea VG HS [facility] Last Admin: 02/03/17 20:47 Dose: 1 applic Tacrolimus (Prograf Cap) 1 mg PO Q12 [facility] Last Admin: 02/03/17 21:52 Dose: 1 mg Temazepam (Restoril) 30 mg PO HS PRN PRN Reason: Insomnia Last Admin: 02/03/17 21:47 Dose: 30 mg - Labs Labs: 02/03/17 08:09 02/03/17 08:09 - Constitutional Appears: No Acute Distress - Head Exam Head Exam: ATRAUMATIC, NORMAL INSPECTION, NORMOCEPHALIC - Eye Exam Eye Exam: EOMI, Normal appearance, PERRL Pupil Exam: NORMAL ACCOMODATION, PERRL - Respiratory Exam Respiratory Exam: Decreased Breath Sounds, Rales - Cardiovascular Exam Cardiovascular Exam: REGULAR RHYTHM, +S1, +S2. absent: Murmur - GI/Abdominal Exam GI & Abdominal Exam: Soft, Normal Bowel Sounds. 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
[2017-02-04] MEDS: Albuterol-Ipratrop 3 mg / 0.5 (3 ml) UD INH SCH ×3 (01:46→13:37)
[2017-02-04 07:49] VITALS: BP 140/85; PULSE 90; O2SAT 97
[2017-02-04] MEDS: (Novolin N) Insulin Human Isophane (NPH) 100 u/ml 10 ml vial SC SCH (08:00)
[2017-02-04] MEDS: (Novolin R) Insulin Human Regular 100 units/ml vial SC SCH ×2 (08:00→12:20)
[2017-02-04 08:25] LABS: BASO % 1.1 % (0.0-2.0); EOS # 0.3 K/uL (0.0-0.7); EOS % 10.5 % (0.0-4.0); HEMATOCRIT 34.2 % (34.0-47.0); LYMPH # 0.8 K/uL (1.0-4.3); LYMPH % 34.3 % (20.0-40.0); MEAN CORPUSCULAR HEMOGLOBIN 28.5 pg (27.0-31.0); MEAN CORPUSCULAR HGB CONC 33.5 g/dL (33.0-37.0); MEAN PLATELET VOLUME 8.4 fL (7.2-11.7); MONO # 0.1 K/uL (0.0-0.8); MONO % 5.5 % (0.0-10.0); NRBC % 0.1 % (0.0-2.0); RED CELL DISTRIBUTION WIDTH 14.9 % (11.5-14.5); WHITE BLOOD COUNT 2.4 K/uL (4.8-10.8)
[2017-02-04] MEDS: (Novolog) Insulin Aspart, Recombinant 100 u/ml 10 ml vial SC SCH ×2 (08:43→12:22)
[2017-02-04 08:54] LABS: BLOOD UREA NITROGEN 20 mg/dL (7-17); CALCIUM 8.8 mg/dl (8.6-10.4); CARBON DIOXIDE 28 mmol/L (22-30); CHLORIDE 100 mmol/L (98-107); GFR AFRICAN-AMERICAN > 60; GLUCOSE,RANDOM 144 mg/dL (65-105); POTASSIUM 4.6 mmol/L (3.6-5.2); SODIUM 135 mmol/L (132-148)
[2017-02-04] MEDS: guaiFENesin 600 mg ER Tab PO SCH (09:51)
[2017-02-04] MEDS: Magnesium Chloride 64 mg ER Tab PO SCH ×2 (09:53→13:07)
[2017-02-04] MEDS: Enoxaparin 40 mg Syringe SC SCH (10:20)
[2017-02-04] MEDS: Sodium Chloride 0.9% 1,000 ML IV SCH (12:23)
--- NOTE | 2017-02-04 14:31 | CP.PCM.PN ---
Subjective - Date & Time of Evaluation Date of Evaluation: 02/04/17 Time of Evaluation: 10:35 - Subjective Subjective: Patient seen an d examined today awake, alert, oriented, denies any sob, cough and congestion improved , a febrile Objective - Vital Signs/Intake and Output Vital Signs (last 24 hours): Temp Pulse Resp BP Pulse Ox 98.3 F 90 20 140/85 97 02/04/17 07:45 02/04/17 07:45 02/04/17 07:45 02/04/17 07:45 02/04/17 07:45 Intake and Output: 02/04/17 02/04/17 06:59 18:59 Intake Total 440 Balance 440 - Medications Medications: Current Medications Albuterol/Ipratropium (Duoneb 3 Mg/0.5 Mg (3 Ml) Ud) 3 ml INH RQ6 [facility] Last Admin: 02/04/17 13:37 Dose: 3 ml Azithromycin (Zithromax) 500 mg PO DAILY [facility] Last Admin: 02/04/17 09:53 Dose: 500 mg Clonidine HCl (Catapres) 0.1 mg PO BID [facility] Last Admin: 02/04/17 09:45 Dose: 0.1 mg Enoxaparin Sodium (Lovenox) 40 mg SC DAILY [facility] Last Admin: 02/04/17 10:20 Dose: Not Given Ergocalciferol (Drisdol 50,000 Intl Units Cap) 1 cap PO QWK [facility] Last Admin: 01/30/17 09:32 Dose: 1 cap Famotidine (Pepcid) 20 mg PO DAILY [facility] Last Admin: 02/04/17 09:45 Dose: 20 mg Guaifenesin (Robitussin) 200 mg PO Q6H PRN PRN Reason: Cough Last Admin: 02/01/17 22:43 Dose: 200 mg Guaifenesin (Mucinex La) 600 mg PO BID [facility] Last Admin: 02/04/17 09:51 Dose: 600 mg Sodium Chloride (Sodium Chloride 0.9%) 1,000 mls @ 50 mls/hr IV .Q20H [facility] Last Admin: 02/04/17 12:23 Dose: Not Given Insulin Aspart (Novolog) 6 unit SC ACTID [facility] Last Admin: 02/04/17 12:22 Dose: 6 unit Insulin Human NPH (Novolin N) 10 unit SC ACBD [facility] Last Admin: 02/04/17 08:00 Dose: 10 unit Insulin Human Regular (Novolin R) 0 unit SC ACHS MANJU PRN Reason: Protocol Last Admin: 02/04/17 12:20 Dose: Not Given Lorazepam (Ativan) 0.5 mg PO BID [facility] Last Admin: 02/04/17 09:45 Dose: 0.5 mg Magnesium Chloride (Slow-Mag) 64 mg PO TID [facility] Last Admin: 02/04/17 13:07 Dose: Not Given Miconazole Nitrate (Monistat 7 Vaginal Cream) 0 ea VG HS [facility] Last Admin: 02/03/17 20:47 Dose: 1 applic Tacrolimus (Prograf Cap) 1 mg PO Q12 [facility] Last Admin: 02/04/17 09:46 Dose: 1 mg Temazepam (Restoril) 30 mg PO HS PRN PRN Reason: Insomnia Last Admin: 02/03/17 21:47 Dose: 30 mg - Labs Labs: 02/04/17 08:21 02/04/17 08:21 - Constitutional Appears: Well, No Acute Distress - Respiratory Exam Respiratory Exam: Decreased Breath Sounds, Rhonchi, NORMAL BREATHING PATTERN - Cardiovascular Exam Cardiovascular Exam: REGULAR RHYTHM, +S1, +S2 - Neurological Exam Neurological Exam: Alert, Awake, Oriented x3 Assessment and Plan - Assessment and Plan (Free Text) Assessment: A/P 76 yr ol d female admitted for cough, weakness, sob /pneumonia patient clincally improved with antibiotics blood culture - negative for 5 days NA - improved D/W with Dr. Hall, stable for discharge home today and f/u with Dr. Hall office in 1 week , continue antibiotics for 5 more days Patient instructed to returns to ED or call Dr. Hall if symptoms returns or any other concerning symptoms
[2017-02-04 16:43] VITALS: TEMP 98.1
--- NOTE | 2017-02-04 23:13 | CP.PCM.DIS ---
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 Hospital Course - Lab Results Lab Results: Micro Results 01/29/17 13:30 Blood Blood Culture - Final NO GROWTH AFTER 5 DAYS 01/29/17 13:30 Blood Gram Stain - Final TEST NOT PERFORMED 01/29/17 14:00 Blood Blood Culture - Final NO GROWTH AFTER 5 DAYS 01/29/17 14:00 Blood Gram Stain - Final TEST NOT PERFORMED Most Recent Lab Values WBC 2.4 K/uL (4.8-10.8) L 02/04/17 08:21 RBC 4.03 Mil/uL (3.80-5.20) 02/04/17 08:21 Hgb 11.5 g/dL (11.0-16.0) 02/04/17 08:21 Hct 34.2 % (34.0-47.0) 02/04/17 08:21 MCV 85.0 fL (81.0-99.0) 02/04/17 08:21 MCH 28.5 pg (27.0-31.0) 02/04/17 08:21 MCHC 33.5 g/dL (33.0-37.0) 02/04/17 08:21 RDW 14.9 % (11.5-14.5) H 02/04/17 08:21 Plt Count 107 K/uL (130-400) L D 02/04/17 08:21 MPV 8.4 fL (7.2-11.7) 02/04/17 08:21 Neut % (Auto) 48.6 % (50.0-75.0) L 02/04/17 08:21 Lymph % (Auto) 34.3 % (20.0-40.0) 02/04/17 08:21 Pettis % (Auto) 5.5 % (0.0-10.0) 02/04/17 08:21 Eos % (Auto) 10.5 % (0.0-4.0) H 02/04/17 08:21 Baso % (Auto) 1.1 % (0.0-2.0) 02/04/17 08:21 Neut # 1.2 K/uL (1.8-7.0) L 02/04/17 08:21 Lymph # 0.8 K/uL (1.0-4.3) L 02/04/17 08:21 Pettis # 0.1 K/uL (0.0-0.8) 02/04/17 08:21 Eos # 0.3 K/uL (0.0-0.7) 02/04/17 08:21 Baso # 0.0 K/uL (0.0-0.2) 02/04/17 08:21 Differential Comment 01/29/17 14:10 Sodium 135 mmol/L (132-148) 02/04/17 08:21 Potassium 4.6 mmol/L (3.6-5.2) 02/04/17 08:21 Chloride 100 mmol/L (98-107) 02/04/17 08:21 Carbon Dioxide 28 mmol/L (22-30) 02/04/17 08:21 Anion Gap 11 (10-20) 02/04/17 08:21 BUN 20 mg/dL (7-17) H 02/04/17 08:21 Creatinine 0.8 mg/dL (0.7-1.2) 02/04/17 08:21 Est GFR ( Amer) > 60 02/04/17 08:21 Est GFR (Non-Af Amer) > 60 02/04/17 08:21 POC Glucose (mg/dL) 81 mg/dL (65-110) 02/04/17 16:05 Random Glucose 144 mg/dL (65-105) H 02/04/17 08:21 Calcium 8.8 mg/dl (8.6-10.4) 02/04/17 08:21 Total Bilirubin 0.8 mg/dL (0.2-1.3) 02/03/17 08:09 AST 52 U/L (14-36) H 02/03/17 08:09 ALT 52 U/L (9-52) 02/03/17 08:09 Alkaline Phosphatase 168 U/L (38-126) H 02/03/17 08:09 Troponin I < 0.0120 ng/mL (0.00-0.120) 01/29/17 14:10 NT-Pro-B Natriuret Pep 1390 pg/mL (0-900) H 01/29/17 14:10 Total Protein 6.1 g/dL (6.3-8.3) L 02/03/17 08:09 Albumin 3.3 g/dL (3.5-5.0) L 02/03/17 08:09 Globulin 2.8 gm/dL (2.2-3.9) 02/03/17 08:09 Albumin/Globulin Ratio 1.2 (1.0-2.1) 02/03/17 08:09 Urine Color Yellow (YELLOW) 01/29/17 15:39 Urine Clarity Clear (Clear) 01/29/17 15:39 Urine pH 6.0 (5.0-8.0) 01/29/17 15:39 Ur Specific [place] 1.020 (1.003-1.030) 01/29/17 15:39 Urine Protein Negative mg/dL (NEGATIVE) 01/29/17 15:39 Urine Glucose (UA) 3+ mg/dL (Normal) H 01/29/17 15:39 Urine Ketones Negative mg/dL (NEGATIVE) 01/29/17 15:39 Urine Blood Negative (NEGATIVE) 01/29/17 15:39 Urine Nitrate Negative (NEGATIVE) 01/29/17 15:39 Urine Bilirubin Negative (NEGATIVE) 01/29/17 15:39 Urine Urobilinogen Normal mg/dL (0.2-1.0) 01/29/17 15:39 Ur Leukocyte Esterase 1+ Zenaida/uL (Negative) H 01/29/17 15:39 Urine WBC (Auto) 10 /hpf (0-5) H 01/29/17 15:39 Urine RBC (Auto) 1 /hpf (0-3) 01/29/17 15:39 Ur Squamous Epith Cells 2 /hpf (0-5) 01/29/17 15:39 Influenza Typ A,B (EIA) Negative for flu a/b (NEGATIVE) 01/29/17 15:54 - Hospital Course Hospital Course: A/P 76 yr ol d female admitted for cough, weakness, sob /pneumonia patient clincally improved with antibiotics blood culture - negative for 5 days NA - improved stable for discharge home today and f/u with me in office in 1 week , continue antibiotics for 5 more days Patient instructed to returns to ED or call my office if symptoms returns or any other concerning symptoms Discharge Exam - Head Exam Head Exam: ATRAUMATIC, NORMAL INSPECTION, NORMOCEPHALIC - Eye Exam Eye Exam: Normal appearance - Respiratory Exam Respiratory Exam: Decreased Breath Sounds, Wheezes - Cardiovascular Exam Cardiovascular Exam: REGULAR RHYTHM, +S1, +S2 - GI/Abdominal Exam GI & Abdominal Exam: Normal Bowel Sounds Discharge Plan - Discharge Medications Prescriptions: Amoxicillin 500 mg PO Q8 #15 tablet Temazepam [Restoril] 30 mg PO HS PRN #30 cap PRN Reason: Insomnia guaiFENesin [Robitussin] 200 mg PO Q6H PRN #240 ml PRN Reason: Cough - Follow Up Plan Condition: GOOD Disposition: HOME/ ROUTINE Instructions: Temazepam (By mouth), Guaifenesin (By mouth), Amoxicillin/ Clavulanate Potassium (By mouth), How to Check Your Blood Sugar (DC), Diabetic Foot Care (DC), Basic Carbohydrate Counting (DC), Meal Planning with Diabetes Exchanges (DC), Acute Cough (GEN) Additional Instructions: please f/u with Dr. hall office in 1 week Continue medication as per Med. REc. Referrals: Westley Hall MD [Staff Provider] -
== END 2017-02-04 18:45 | disposition home or self-care (01) | DRG 190 ==
LOC: C.ER 13:10 → C.9E 16:04 → C.3T 17:11 → OBSVTOIN 01-30 15:07
PROVIDERS: ADMIT Internal Medicine; ATTEND Internal Medicine
DX: J44.0 Chronic obstructive pulmonary disease with (acute) lower respiratory infection (principal); J18.9 Pneumonia, unspecified organism; Z94.4 Liver transplant status; E11.65 Type 2 diabetes mellitus with hyperglycemia; T45.1X5A Adverse effect of antineoplastic and immunosuppressive drugs, initial encounter; I25.10 Atherosclerotic heart disease of native coronary artery without angina pectoris; I10 Essential (primary) hypertension; F41.9 Anxiety disorder, unspecified; F31.9 Bipolar disorder, unspecified; Z79.4 Long term (current) use of insulin; Z87.01 Personal history of pneumonia (recurrent)

== ENCOUNTER 2017-02-10 17:13 | Emergency (ER) | payer OTHER, MEDICAID ==
[2017-02-10 17:13] VITALS: BMI 20.9
[2017-02-10] MEDS ORDERED: Clotrimazole 1% Cream 15 GM TUBE TOP STA (18:08)
--- NOTE | 2017-02-10 18:22 | C.PDOC ---
History Of Present Illness 76 year old female presents to the ED for evaluation of an itchy rash to her right groin for 4 days. Patient states cause of rash is unknown and reports an occasional burning sensation. Patient did not take her HTN medications today. She denies fever, chills, throat closing sensation, cough, new foods or contacts with new soaps/detergents. Time Seen by Provider: 02/10/17 17:59 Chief Complaint (Nursing): High Blood Pressure History Per: Patient History/Exam Limitations: no limitations Onset/Duration Of Symptoms: Days (4) Current Symptoms Are (Timing): Still Present Additional History Per: Patient Past Medical History Reviewed: Historical Data, Nursing Documentation, Vital Signs Vital Signs: Last Vital Signs Temp 98.0 F 02/10/17 18:49 Pulse 72 02/10/17 18:49 Resp 18 02/10/17 18:49 BP 165/79 H 02/10/17 18:49 Pulse Ox 97 02/10/17 18:49 - Medical History PMH: No Chronic Diseases, Anxiety, Arthritis (L KNEE; BACK), Bipolar Disorder, Bronchitis, CAD, COPD, Depression, Diabetes, Fractures (L leg), Gastritis, HTN, Peripheral Edema, Pneumonia, Pneumothorax (effusion) Denies: Anemia, Asthma, Atrial Fibrillation, Cardia Arrhythmia, CHF, Crohn's Disease, Diverticulitis, Emphysema, Gall Bladder Disease, HIV, Hypercholesterolemia, Hyperthyroidism, Hypothyroidism, Mitral Valve Prolapse, Osteoporosis, Pancreatitis, Paranoia, Post Traumatic Stress Disorder, Pulmonary Embolism, Chronic Kidney Disease, Rheumatoid Arthritis, Schizophrenia, Sickle Cell Disease, Sexually Transmitted Disease, Sleep Apnea Surgical History: (x 2) Denies: Appendectomy, CABG, Carotid Endarterectomy, Cholecystectomy, Coronary Stent, Pacemaker, Tonsillectomy - [facility] Procedures CLOSED ENDOSCOPIC BIOPSY OF LARGE INTESTINE (08/31/13) DRAINAGE OF RIGHT LOWER LOBE BRONCHUS, ENDO, DIAGN (08/03/15) DRAINAGE OF RIGHT MIDDLE LOBE BRONCHUS, ENDO, DIAGN (08/03/15) DRAINAGE OF SPINAL CANAL, PERCUTANEOUS APPROACH, DIAGNOSTIC (08/03/15) ESOPHAGOGASTRODUODENOSCOPY [EGD] W/CLOSED BIOPSY (08/31/13) INSERT INTERCOSTAL CATH (03/15/14) INSERTION OF ENDOTRACHEAL AIRWAY INTO TRACHEA, VIA OPENING (08/03/15) INSERTION OF INFUSION DEV INTO SUP VENA CAVA, PERC APPROACH (08/03/15) OTHER PLEURAL INCISION (03/15/14) REMOVAL OF FB NOS (05/25/13) RESPIRATORY VENTILATION, GREATER THAN 96 CONSECUTIVE HOURS (08/03/15) TRANSFUSE NONAUT PLATELETS IN PERIPH VEIN, PERC (08/03/15) Family History: States: Unknown Family Hx - Social History Hx Tobacco Use: No Hx Alcohol Use: No Hx Substance Use: No - Immunization History Hx Tetanus Toxoid Vaccination: No Hx Influenza Vaccination: Yes Hx Pneumococcal Vaccination: Yes Review Of Systems Constitutional: Negative for: Fever, Chills ENT: Negative for: Throat Swelling Respiratory: Negative for: Cough Skin: Positive for: Rash Physical Exam - Physical Exam Appears: Non-toxic, No Acute Distress Skin: Warm, Dry, Rash ( bright shiny erythematous rash to right inguinal area with lacy borders and small satellite lesions ) Head: Atraumatic, Normacephalic Eye(s): bilateral: Normal Inspection Oral Mucosa: Moist Neck: Supple Chest: Symmetrical, No Deformity, No Tenderness Cardiovascular: Rhythm Regular, No Murmur Respiratory: Normal Breath Sounds, No Rales, No Rhonchi, No Wheezing Extremity: Bilateral: Atraumatic, Normal Color And Temperature, Normal ROM Neurological/Psych: Oriented x3, Normal Speech Gait: Steady ED Course And Treatment O2 Sat by Pulse Oximetry: 100 (on RA) Pulse Ox Interpretation: Normal Medical Decision Making Medical Decision Making: patient with itchy rash consistent with pamela. will treat with lotrimin lotion which was applied to area by RN. Patient forgot to take her HTN medications today. Catapres ordered. Patient is asymptomatic and has no complaints other than rash. Stable for discharge. Disposition Counseled Patient/Family Regarding: Diagnosis, Need For Followup, Rx Given - Disposition Referrals: Westley Hall MD [Staff Provider] - Disposition: HOME/ ROUTINE Disposition Time: 18:14 Condition: STABLE Additional Instructions: apply to rash twice daily for 1-2 weeks aplicar a la erupcin dos veces al da cody 1-2 semanas Prescriptions: Clotrimazole 1% Cream [Lotrimin 1%] 1 gm TP BID #1 tube Instructions: Skin Yeast Infection (ED) Forms: [employer] (Lithuanian) Print Language: [place] - POA Present On Arrival: None - Clinical Impression Clinical Impression: Candidal skin infection - PA / MANAGER CODING / Resident Statement MD/DO has reviewed & agrees with the documentation as recorded. - Scribe Statement The provider has reviewed the documentation as recorded by the Scribe (Yamilet Cabrera) All medical record entries made by the Scribe were at my direction and personally dictated by me. I have reviewed the chart and agree that the record accurately reflects my personal performance of the history, physical exam, medical decision making, and the department course for this patient. I have also personally directed, reviewed, and agree with the discharge instructions and disposition.
[2017-02-10 18:49] VITALS: BP 165/79; PULSE 72; RESP 18; TEMP 98
[2017-02-12 20:04] VITALS: O2SAT 100
== END 2017-02-10 18:49 | disposition home or self-care (01) ==
LOC: C.ER 17:13
DX: B37.9 Candidiasis, unspecified (principal)

== ENCOUNTER 2017-03-09 22:18 | Emergency (ER) | payer OTHER, MEDICAID ==
[2017-03-09 22:18] VITALS: BMI 20.9
[2017-03-09 22:27] VITALS: TEMP 97.7
[2017-03-09 23:15] LABS: EOS # 0.2 K/uL (0.0-0.7); MONO # 0.2 K/uL (0.0-0.8)
[2017-03-09 23:21] LABS: BASO % 0.9 % (0.0-2.0); EOS % 7.9 % (0.0-4.0); HEMATOCRIT 32.4 % (34.0-47.0); LYMPH % 35.5 % (20.0-40.0); MEAN CELL VOLUME 85.7 fL (81.0-99.0); MEAN CORPUSCULAR HGB CONC 33.8 g/dL (33.0-37.0); MEAN PLATELET VOLUME 8.6 fL (7.2-11.7); MONO % 5.3 % (0.0-10.0); NRBC % 0.1 % (0.0-2.0); RED CELL DISTRIBUTION WIDTH 15.4 % (11.5-14.5); WHITE BLOOD COUNT 2.9 K/uL (4.8-10.8)
[2017-03-09 23:25] LABS: ALB/GLOB RATIO 1.2 (1.0-2.1); ALKALINE PHOSPHATASE 195 U/L (38-126); ALT/SGPT 73 U/L (9-52); AST/SGOT 68 U/L (14-36); BILIRUBIN,TOTAL 0.6 mg/dL (0.2-1.3); BLOOD UREA NITROGEN 23 mg/dL (7-17); CALCIUM 8.3 mg/dl (8.6-10.4); CARBON DIOXIDE 29 mmol/L (22-30); CHLORIDE 100 mmol/L (98-107); GFR AFRICAN-AMERICAN > 60; GLUCOSE,RANDOM 307 mg/dL (65-105); POTASSIUM 4.9 mmol/L (3.6-5.2); SODIUM 134 mmol/L (132-148); TOTAL PROTEIN 6.4 g/dL (6.3-8.3)
[2017-03-09 23:42] LABS: RBC URINE < 1 /hpf (0-3); TRANSITIONAL EPITHIAL < 1 /hpf (0-3); URINE BACTERIA RARE (<OCC); URINE BILIRUBIN NEGATIVE (NEGATIVE); URINE BLOOD NEGATIVE (NEGATIVE); URINE COLOR Yellow (YELLOW); URINE GLUCOSE (UA) 3+ mg/dL (Normal); URINE KETONE NEGATIVE (NEGATIVE); URINE PROTEIN NEGATIVE (NEGATIVE); URINE UROBILINOGEN NORMAL mg/dL (0.2-1.0); WBC URINE 7 /hpf (0-5)
[2017-03-09 23:45] LABS: URINE LEUKOCYTE ESTERASE 1+ Leu/uL (Negative)
--- NOTE | 2017-03-09 23:52 | C.PDOC ---
History Of Present Illness Patient is a 76 y/o female who presents to the ED with a complaint of dizziness since earlier today. Patient reports to be compliant with DM medication. Patient has many prior evaluations for anxiety; reports taking Ativan 2 mg PO this morning and denies treatment of any more. Notes abdominal bloating. No other physical complaints at this time. Time Seen by Provider: 03/09/17 23:16 Chief Complaint (Nursing): Dizziness/Lightheaded History Per: Patient History/Exam Limitations: no limitations Onset/Duration Of Symptoms: Hrs (since earlier today) Current Symptoms Are (Timing): Still Present Recent travel outside of the [place]: No Past Medical History Reviewed: Historical Data, Nursing Documentation, Vital Signs Vital Signs: Last Vital Signs Temp 97.7 F 03/09/17 22:27 Pulse 65 03/09/17 22:27 Resp 20 03/09/17 22:27 BP 148/85 03/09/17 22:27 Pulse Ox 98 03/09/17 23:57 - Medical History PMH: Anxiety, Arthritis (L KNEE; BACK), Bipolar Disorder, Bronchitis, CAD, COPD , Depression, Diabetes, Fractures (L leg), Gastritis, HTN, Peripheral Edema, Pneumonia, Pneumothorax (effusion) Denies: Anemia, Asthma, Atrial Fibrillation, Cardia Arrhythmia, CHF, Crohn's Disease, Diverticulitis, Emphysema, Gall Bladder Disease, HIV, Hypercholesterolemia, Hyperthyroidism, Hypothyroidism, Mitral Valve Prolapse, Osteoporosis, Pancreatitis, Paranoia, Post Traumatic Stress Disorder, Pulmonary Embolism, Chronic Kidney Disease, Rheumatoid Arthritis, Schizophrenia, Sickle Cell Disease, Sexually Transmitted Disease, Sleep Apnea Surgical History: (x 2) Denies: Appendectomy, CABG, Carotid Endarterectomy, Cholecystectomy, Coronary Stent, Pacemaker, Tonsillectomy - [facility] Procedures CLOSED ENDOSCOPIC BIOPSY OF LARGE INTESTINE (08/31/13) DRAINAGE OF RIGHT LOWER LOBE BRONCHUS, ENDO, DIAGN (08/03/15) DRAINAGE OF RIGHT MIDDLE LOBE BRONCHUS, ENDO, DIAGN (08/03/15) DRAINAGE OF SPINAL CANAL, PERCUTANEOUS APPROACH, DIAGNOSTIC (08/03/15) ESOPHAGOGASTRODUODENOSCOPY [EGD] W/CLOSED BIOPSY (08/31/13) INSERT INTERCOSTAL CATH (03/15/14) INSERTION OF ENDOTRACHEAL AIRWAY INTO TRACHEA, VIA OPENING (08/03/15) INSERTION OF INFUSION DEV INTO SUP VENA CAVA, PERC APPROACH (08/03/15) OTHER PLEURAL INCISION (03/15/14) REMOVAL OF FB NOS (05/25/13) RESPIRATORY VENTILATION, GREATER THAN 96 CONSECUTIVE HOURS (08/03/15) TRANSFUSE NONAUT PLATELETS IN PERIPH VEIN, PERC (08/03/15) Family History: States: No Known Family Hx - Social History Hx Tobacco Use: No Hx Alcohol Use: No Hx Substance Use: No - Immunization History Hx Tetanus Toxoid Vaccination: No Hx Influenza Vaccination: Yes Hx Pneumococcal Vaccination: Yes Review Of Systems Neurological: Positive for: Dizziness Physical Exam - Physical Exam Appears: Well, Non-toxic, No Acute Distress Skin: Normal Color, Warm, Dry Head: Atraumatic, Normacephalic Eye(s): bilateral: Normal Inspection, PERRL, EOMI Ear(s): Bilateral: Normal Nose: Normal, No Discharge Chest: Symmetrical Cardiovascular: Rhythm Regular, No Murmur Respiratory: Normal Breath Sounds, No Rales, No Rhonchi, No Wheezing Gastrointestinal/Abdominal: Normal Exam, Soft, No Tenderness Neurological/Psych: Oriented x3, Normal Speech, Normal Cognition ED Course And Treatment - Laboratory Results Result Diagrams: 03/09/17 23:11 03/09/17 23:11 O2 Sat by Pulse Oximetry: 98 (room air) Pulse Ox Interpretation: Normal Medical Decision Making Medical Decision Making: EKG and obstructive series XR ordered. Antivert administered. Disposition - Disposition Forms: [employer] (Kyrgyz) - Scribe Statement The provider has reviewed the documentation as recorded by the Scribe Fior Khan All medical record entries made by the Scribe were at my direction and personally dictated by me. I have reviewed the chart and agree that the record accurately reflects my personal performance of the history, physical exam, medical decision making, and the department course for this patient. I have also personally directed, reviewed, and agree with the discharge instructions and disposition.
--- NOTE | 2017-03-10 00:17 | C.PDOC ---
History Of Present Illness Patient is a 76 y/o female who presents to the ED with a complaint of dizziness since earlier today. Patient reports to be compliant with DM medication. Patient has many prior evaluations for anxiety; reports taking Ativan 2 mg PO this morning and denies treatment of any more. Notes abdominal bloating. No other physical complaints at this time. Time Seen by Provider: 03/09/17 23:16 Chief Complaint (Nursing): Dizziness/Lightheaded History Per: Patient History/Exam Limitations: no limitations Onset/Duration Of Symptoms: Hrs (earlier today) Recent travel outside of the [place]: No Past Medical History Reviewed: Historical Data, Nursing Documentation, Vital Signs Vital Signs: Last Vital Signs Temp 97.7 F 03/09/17 22:27 Pulse 65 03/09/17 22:27 Resp 20 03/09/17 22:27 BP 148/85 03/09/17 22:27 Pulse Ox 98 03/10/17 00:19 - Medical History PMH: Anxiety, Arthritis (L KNEE; BACK), Bipolar Disorder, Bronchitis, CAD, COPD , Depression, Diabetes, Fractures (L leg), Gastritis, HTN, Peripheral Edema, Pneumonia, Pneumothorax (effusion) Denies: Anemia, Asthma, Atrial Fibrillation, Cardia Arrhythmia, CHF, Crohn's Disease, Diverticulitis, Emphysema, Gall Bladder Disease, HIV, Hypercholesterolemia, Hyperthyroidism, Hypothyroidism, Mitral Valve Prolapse, Osteoporosis, Pancreatitis, Paranoia, Post Traumatic Stress Disorder, Pulmonary Embolism, Chronic Kidney Disease, Rheumatoid Arthritis, Schizophrenia, Sickle Cell Disease, Sexually Transmitted Disease, Sleep Apnea Surgical History: (x 2) Denies: Appendectomy, CABG, Carotid Endarterectomy, Cholecystectomy, Coronary Stent, Pacemaker, Tonsillectomy - [facility] Procedures CLOSED ENDOSCOPIC BIOPSY OF LARGE INTESTINE (08/31/13) DRAINAGE OF RIGHT LOWER LOBE BRONCHUS, ENDO, DIAGN (08/03/15) DRAINAGE OF RIGHT MIDDLE LOBE BRONCHUS, ENDO, DIAGN (08/03/15) DRAINAGE OF SPINAL CANAL, PERCUTANEOUS APPROACH, DIAGNOSTIC (08/03/15) ESOPHAGOGASTRODUODENOSCOPY [EGD] W/CLOSED BIOPSY (08/31/13) INSERT INTERCOSTAL CATH (03/15/14) INSERTION OF ENDOTRACHEAL AIRWAY INTO TRACHEA, VIA OPENING (08/03/15) INSERTION OF INFUSION DEV INTO SUP VENA CAVA, PERC APPROACH (08/03/15) OTHER PLEURAL INCISION (03/15/14) REMOVAL OF FB NOS (05/25/13) RESPIRATORY VENTILATION, GREATER THAN 96 CONSECUTIVE HOURS (08/03/15) TRANSFUSE NONAUT PLATELETS IN PERIPH VEIN, PERC (08/03/15) Family History: States: Unknown Family Hx - Social History Hx Tobacco Use: No Hx Alcohol Use: No Hx Substance Use: No - Immunization History Hx Tetanus Toxoid Vaccination: No Hx Influenza Vaccination: Yes Hx Pneumococcal Vaccination: Yes Review Of Systems Constitutional: Negative for: Fever, Chills Gastrointestinal: Positive for: Other (abdominal bloating) Neurological: Positive for: Dizziness Physical Exam - Physical Exam Appears: Well, Non-toxic, No Acute Distress Skin: Normal Color, Warm, Dry Head: Atraumatic, Normacephalic Oral Mucosa: Moist Chest: Symmetrical Cardiovascular: Rhythm Regular, No Murmur Respiratory: Normal Breath Sounds, No Rales, No Rhonchi, No Wheezing Gastrointestinal/Abdominal: Normal Exam, Soft, No Tenderness Neurological/Psych: Oriented x3, Normal Speech, Normal Cognition ED Course And Treatment - Laboratory Results Result Diagrams: 03/09/17 23:11 03/09/17 23:11 Lab Interpretation: Normal (ua neg.) ECG: Interpreted By Me ECG Rhythm: Sinus Rhythm ECG Interpretation: Normal Rate From EC (bpm) O2 Sat by Pulse Oximetry: 98 Pulse Ox Interpretation: Normal - Radiology CXR: Interpreted by Me CXR Interpretation: Yes: No Acute Disease - Other Rad abd x 2 X-Ray: Interpreted by Me (+FOS) Progress Note: meclizine PO Reevaluation Time: 00:18 Reassessment Condition: Improved Medical Decision Making Medical Decision Making: anxiety, dizziness without symptoms now normal eval Disposition Doctor Will See Patient In The: Office Counseled Patient/Family Regarding: Studies Performed, Diagnosis - Disposition Referrals: Westley Hall MD [Staff Provider] - Disposition: HOME/ ROUTINE Disposition Time: 00:18 Condition: GOOD Additional Instructions: Dizzines: Examen normal Sigue con Dr. Hall Estrenemiento: Kathy un purgante (compra en la pharmacia) y re-evalua guerrier molestia del abdomen despues de usar el juan 2-3 veces Instructions: Constipation (ED), Dizziness (ED) Forms: [employer] (Yi) Print Language: KYRGYZ - Clinical Impression Clinical Impression: Anxiety, Dizziness, Constipation - Scribe Statement The provider has reviewed the documentation as recorded by the Scribe Fior Khan All medical record entries made by the Davidibester were at my direction and personally dictated by me. I have reviewed the chart and agree that the record accurately reflects my personal performance of the history, physical exam, medical decision making, and the department course for this patient. I have also personally directed, reviewed, and agree with the discharge instructions and disposition.
[2017-03-10 05:50] VITALS: BP 152/82; PULSE 84; RESP 20; O2SAT 98
--- NOTE | 2017-03-10 08:31 | RAD ---
PROCEDURE: Radiographs of the chest and abdomen (obstructive series) HISTORY: abd discomfort COMPARISON: No prior. TECHNIQUE: AP radiograph of the chest, with upright and supine radiographs of the abdomen. FINDINGS: CHEST: Lungs: Clear. Cardiovascular: Mild cardiomegaly. Heavy atherosclerotic vascular calcification aorta ; heavy mitral annular calcifications No pulmonary vascular congestion. Pleura: No pleural fluid. No pneumothorax. Other findings: None. ABDOMEN AND PELVIS: Bowel: Stool retention especially right colon. No evidence of mechanical obstruction. Free air: None. Bones: Thoraco lumbar spondylosis. Status post left hip old fracture orthopedic hardware fixation. Background bilateral hip arthrosis Other findings: Right upper quadrant clips. Descending abdominal aortic calcifications and bifurcations IMPRESSION: No pulmonary infiltrate. Extensive right colon stool retention. No evidence of mechanical bowel obstruction.
--- NOTE | 2017-03-11 23:44 | CARD ---
APPROVED REPORT EKG Measurement Heart [id number] <Conclusion> Sinus bradycardia Otherwise normal ECG
== END 2017-03-10 06:00 | disposition home or self-care (01) ==
LOC: C.ER 22:18
DX: F41.9 Anxiety disorder, unspecified (principal); K59.00 Constipation, unspecified; R42 Dizziness and giddiness; I10 Essential (primary) hypertension; E11.9 Type 2 diabetes mellitus without complications; I25.10 Atherosclerotic heart disease of native coronary artery without angina pectoris; J44.9 Chronic obstructive pulmonary disease, unspecified

== ENCOUNTER 2017-04-18 14:44 | Inpatient (IN) | payer MEDICARE, MEDICAID ==
[2017-04-18 14:44] VITALS: BMI 20.9
[2017-04-18] MEDS ORDERED: Sodium Chloride 0.9% 1,000 ML IV ONE (15:23)
--- NOTE | 2017-04-18 15:23 | C.PDOC ---
History Of Present Illness 77 year old female presents to the ER with a complaint of a nonproductive cough , congestion, and loose stools. Patient has not taken any treatments so far, she was referred to come in by Dr. Hall. Denies fever or chills. Time Seen by Provider: 04/18/17 15:19 Chief Complaint (Nursing): Flu-like Symptoms History Per: Patient History/Exam Limitations: no limitations Onset/Duration Of Symptoms: Days Current Symptoms Are (Timing): Still Present Location Of Pain: None Sick Contacts (Context): None Associated Symptoms: Cough, Nasal Congestion. denies: Fever, Chills, Sputum Ear Symptoms: Bilateral: None Recent travel outside of the [place]: No Past Medical History Reviewed: Historical Data, Nursing Documentation, Vital Signs Vital Signs: Last Vital Signs Temp 97.4 F L 04/18/17 18:15 Pulse 69 04/18/17 18:15 Resp 19 04/18/17 18:15 BP 146/82 04/18/17 18:15 Pulse Ox 98 04/18/17 18:15 - Medical History PMH: Anxiety, Arthritis (L KNEE; BACK), Bipolar Disorder, Bronchitis, CAD, COPD , Depression, Diabetes, Fractures (L leg), Gastritis, HTN, Peripheral Edema, Pneumonia, Pneumothorax (effusion) Surgical History: (x 2) - [facility] Procedures CLOSED ENDOSCOPIC BIOPSY OF LARGE INTESTINE (08/31/13) DRAINAGE OF RIGHT LOWER LOBE BRONCHUS, ENDO, DIAGN (08/03/15) DRAINAGE OF RIGHT MIDDLE LOBE BRONCHUS, ENDO, DIAGN (08/03/15) DRAINAGE OF SPINAL CANAL, PERCUTANEOUS APPROACH, DIAGNOSTIC (08/03/15) ESOPHAGOGASTRODUODENOSCOPY [EGD] W/CLOSED BIOPSY (08/31/13) INSERT INTERCOSTAL CATH (03/15/14) INSERTION OF ENDOTRACHEAL AIRWAY INTO TRACHEA, VIA OPENING (08/03/15) INSERTION OF INFUSION DEV INTO SUP VENA CAVA, PERC APPROACH (08/03/15) OTHER PLEURAL INCISION (03/15/14) REMOVAL OF FB NOS (05/25/13) RESPIRATORY VENTILATION, GREATER THAN 96 CONSECUTIVE HOURS (08/03/15) TRANSFUSE NONAUT PLATELETS IN PERIPH VEIN, PERC (08/03/15) Family History: States: Unknown Family Hx - Social History Hx Tobacco Use: No Hx Alcohol Use: No Hx Substance Use: No - Immunization History Hx Tetanus Toxoid Vaccination: Yes Hx Influenza Vaccination: Yes Hx Pneumococcal Vaccination: Yes Review Of Systems Constitutional: Negative for: Fever, Chills ENT: Positive for: Nose Congestion Cardiovascular: Negative for: Chest Pain, Palpitations Respiratory: Positive for: Cough. Negative for: Shortness of Breath Gastrointestinal: Positive for: Other (Loose stools). Negative for: Nausea, Vomiting Physical Exam - Physical Exam Appears: Non-toxic, No Acute Distress Skin: Normal Color, Warm, Dry Head: Atraumatic, Normacephalic Eye(s): bilateral: Normal Inspection Oral Mucosa: Moist Chest: Symmetrical, No Tenderness Cardiovascular: Rhythm Regular Respiratory: Normal Breath Sounds, No Rales, No Rhonchi, No Wheezing Gastrointestinal/Abdominal: Soft, No Tenderness Neurological/Psych: Oriented x3, Normal Speech, Other (No focal deficits) ED Course And Treatment - Laboratory Results Result Diagrams: 04/18/17 15:58 04/18/17 15:58 Lab Interpretation: Normal (flu neg, UA neg.) ECG: Interpreted By Me ECG Rhythm: Sinus Rhythm ECG Interpretation: Normal Rate From EC O2 Sat by Pulse Oximetry: 99 Pulse Ox Interpretation: Normal - Radiology CXR: Interpreted by Me CXR Interpretation: Yes: No Acute Disease Progress Note: rocephin, azithro, IVF, toradol, tamiflu PO Reevaluation Time: 18:04 Reassessment Condition: Improved Medical Decision Making Medical Decision Making: early viral syndrome without flu +, due to prostrate clinical presentation (but not supported in labs or cxr/flu) empircally started on Tamiflu- d/w elizabeth Judge to med/surg Obs. pt claims to live alone and due to "fainting" does not feel safe to d/c home alone and prefers inpt eval. Disposition Doctor Will See Patient In The: Hospital Counseled Patient/Family Regarding: Studies Performed, Diagnosis - Disposition Disposition: HOSPITALIZED Disposition Time: 18:04 Condition: GOOD - Clinical Impression Clinical Impression: Influenza-like illness - Scribe Statement The provider has reviewed the documentation as recorded by the Scribe Fly Arredondo All medical record entries made by the Scribe were at my direction and personally dictated by me. I have reviewed the chart and agree that the record accurately reflects my personal performance of the history, physical exam, medical decision making, and the department course for this patient. I have also personally directed, reviewed, and agree with the discharge instructions and disposition.
[2017-04-18] MEDS ORDERED: Azithromycin 500 MG in Sodium Chloride 0.9% 250 ML IV STA (15:37)
[2017-04-18] MEDS ORDERED: cefTRIAXone IV 1 gm in Dextros 50 ML IV ONE (15:37)
[2017-04-18 16:07] LABS: BASO % 0.7 % (0.0-2.0); EOS # 0.1 K/uL (0.0-0.7); EOS % 4.8 % (0.0-4.0); LYMPH # 0.8 K/uL (1.0-4.3); LYMPH % 28.5 % (20.0-40.0); MEAN CELL VOLUME 86.3 fL (81.0-99.0); MEAN CORPUSCULAR HGB CONC 33.6 g/dL (33.0-37.0); MEAN PLATELET VOLUME 8.7 fL (7.2-11.7); MONO # 0.2 K/uL (0.0-0.8); MONO % 6.8 % (0.0-10.0); NEUT # 1.6 K/uL (1.8-7.0); NEUT % 59.2 % (50.0-75.0); RBC 3.8 Mil/uL (3.80-5.20); RED CELL DISTRIBUTION WIDTH 14.4 % (11.5-14.5); WHITE BLOOD COUNT 2.7 K/uL (4.8-10.8)
[2017-04-18] MEDS ORDERED: Sodium Chloride 0.9% 1,000 ML ONE (16:12)
[2017-04-18 16:15] LABS: ALBUMIN 3.4 g/dL (3.5-5.0); ALT/SGPT 51 U/L (9-52); AST/SGOT 53 U/L (14-36); BLOOD UREA NITROGEN 18 mg/dL (7-17); CALCIUM 8.7 mg/dl (8.6-10.4); GFR AFRICAN-AMERICAN > 60; GFR NON-AFRICAN AMERICAN > 60
--- NOTE | 2017-04-18 16:25 | RAD ---
Chest x-ray single frontal view History: Cough. Comparison: 01/30/2017 Findings: Patchy increased markings at the left lung base which may represent atelectasis and or infiltrate. Left hilar prominence. Tortuous ectatic aorta. Right paratracheal airspace opacity. Degenerative changes in the spine and shoulders. Impression: Patchy increased markings at the left lung base which may represent atelectasis and or infiltrate. Left hilar prominence. Tortuous ectatic aorta. Right paratracheal airspace opacity.
[2017-04-18 16:26] LABS: B-TYPE NATRIURETIC PEPTIDE 988 pg/mL (0-900)
[2017-04-18 17:12] LABS: URINE BILIRUBIN NEGATIVE (NEGATIVE); URINE BLOOD NEGATIVE (NEGATIVE); URINE CLARITY Hazy (Clear); URINE COLOR YELLOW (YELLOW); URINE GLUCOSE (UA) 100 mg/dL (Normal)
[2017-04-18 17:13] LABS: SQUAMOUS EPITHIAL 1 /hpf (0-5); URINE BACTERIA RARE (<OCC); URINE LEUKOCYTE ESTERASE NEGATIVE Leu/uL (Negative); URINE NITRATE NEGATIVE (NEGATIVE); URINE PROTEIN NEGATIVE (NEGATIVE); URINE UROBILINOGEN 0.2 mg/dL (0.2-1.0)
[2017-04-19] MEDS: (Novolog) Insulin Aspart, Recombinant 100 u/ml 10 ml vial SC SCH ×3 (07:49→18:10)
[2017-04-19] MEDS: (Novolin R) Insulin Human Regular 100 units/ml vial SC SCH ×4 (07:49→22:20)
[2017-04-19] MEDS: Enoxaparin 40 mg Syringe SC SCH (09:30)
[2017-04-19] MEDS: (Novolin N) Insulin Human Isophane (NPH) 100 u/ml 10 ml vial SC SCH ×2 (09:31→22:19)
[2017-04-19] MEDS: Azithromycin 500 MG in Sodium Chloride 0.9% 250 ML IVPB SCH (13:00)
--- NOTE | 2017-04-19 21:07 | CP.PCM.HP ---
History of Present Illness - History of Present Illness History of Present Illness: Chief Complaint : Cough. Genelaized weakness, Flu-like Symptoms Associated Symptoms: Cough, Nasal Congestion. denies: Fever, Chills, Sputum HPI: 77 year old female well known to me with h/o hep C on immunosuprressive therapy, also has h/o prior pneumonia, psychosis, presents to the ER with a complaint of a nonproductive cough, congestion, and loose stools.Pt c/o chills, rigoors, body aches and generalized weakness Present on Admission - Present on Admission Any Indicators Present on Admission: Yes Review of Systems - Review of Systems Systems not reviewed;Unavailable: Acuity of Condition - Constitutional Constitutional: Chills, Fatigue, Lethargy, Weakness - EENT Eyes: absent: As Per HPI, Blind Spots, Blurred Vision, Change in Vision, Decreased Night Vision, Diplopia, Discharge, Dry Eye, Exophthalmos, Floaters, Irritation, Itchy Eyes, Loss of Peripheral Vision, Pain, Photophobia, Requires Corrective Lenses, Sees Flashes, Spots in Vision, Tunnel Vision, Other Visual Disturbances, Loss of Vision, Other Nose/Mouth/Throat: Nasal Congestion. absent: As Per HPI, Epistaxis, Nasal Discharge, Nasal Obstruction, Nasal Trauma, Nose Pain, Post Nasal Drip, Sinus Pain, Sinus Pressure, Bleeding Gums, Change in Voice, Dental Pain, Dry Mouth, Dysphagia, Halitosis, Hoarsness, Lip Swelling, Mouth Lesions, Mouth Pain, Odynophagia, Sore Throat, Throat Swelling, Tongue Swelling, Facial Pain, Neck Pain, Neck Mass, Other - Respiratory Respiratory: Cough, Dyspnea, Wheezing, Pain with Coughing - Gastrointestinal Gastrointestinal: absent: As Per HPI, Abdominal Pain, Belching, Bloating, Change in Bowel Habits, Change in Stool Character, Coffee Ground Emesis, Constipation, Cramping, Diarrhea, Dyspepsia, Dysphagia, Early Satiety, Excessive Flatus, Fecal Incontinence, Heartburn, Hematemesis, Hematochezia, Loose Stools, Melena, Nausea, Odynophagia, Temesmus, Vomiting, Other - Genitourinary Genitourinary: absent: As Per HPI, Change in Urinary Stream, Difficulty Urinating, Dysuria, Flank Pain, Hematuria, Pyuria, Nocturia, Urinary Incontinence, Urinary Frequency, Urinary Hesitance, Urinary Urgency, Voiding Freq/Small Amts, Freq UTI, Hx Renal/Bladder Calculi, Hx /Renal Surgery, Bladder Distension, Other Past Patient History - Infectious Disease Hx of Infectious Diseases: None - Past Medical History & Family History Past Medical History?: Yes - Past Social History Smoking Status: Never Smoked - CARDIAC Hx Hypertension: Yes Hx Peripheral Edema: Yes - PULMONARY Hx Bronchitis: Yes Hx Chronic Obstructive Pulmonary Disease (COPD): Yes Hx Pneumonia: Yes - NEUROLOGICAL Hx Neurological Disorder: No - HEENT Hx HEENT Problems: No - RENAL Hx Chronic Kidney Disease: No - ENDOCRINE/METABOLIC Hx Hyperthyroidism: No Hx Hypothyroidism: No - HEMATOLOGICAL/ONCOLOGICAL Hx Anemia: No Hx Human Immunodeficiency Virus (HIV): No Hx Sickle Cell Disease: No - INTEGUMENTARY Hx Dermatological Problems: No - MUSCULOSKELETAL/RHEUMATOLOGICAL Hx Arthritis: Yes (L KNEE; BACK) Hx Falls: No Hx Fractures: Yes (L leg) - GASTROINTESTINAL Hx Gastritis: Yes - GENITOURINARY/GYNECOLOGICAL Hx Sexually Transmitted Disorders: No - PSYCHIATRIC Hx Anxiety: Yes Hx Bipolar Disorder: Yes Hx Depression: Yes Hx Substance Use: No - SURGICAL HISTORY Hx Appendectomy: No Hx Carotid Endarterectomy: No Hx Cholecystectomy: No Hx Coronary Artery Bypass Graft: No Hx Coronary Stent: No Hx Tonsillectomy: No - ANESTHESIA Hx Anesthesia: Yes Hx Anesthesia Reactions: No Hx Malignant Hyperthermia: No Meds Allergies/Adverse Reactions: Allergies Allergy/AdvReac Type Severity Reaction Status Date / Time No Known Allergies Allergy Verified 04/18/17 15:04 Physical Exam - Constitutional Appears: No Acute Distress - Head Exam Head Exam: ATRAUMATIC, NORMAL INSPECTION, NORMOCEPHALIC - Eye Exam Eye Exam: EOMI, Normal appearance, PERRL Pupil Exam: NORMAL ACCOMODATION, PERRL - Neck Exam Neck exam: Positive for: Normal Inspection - Respiratory Exam Respiratory Exam: Decreased Breath Sounds, Rhonchi, Wheezes - Cardiovascular Exam Cardiovascular Exam: REGULAR RHYTHM - Neurological Exam Neurological exam: Alert, CN II-XII Intact, Normal Gait, Oriented x3, Reflexes Normal - Psychiatric Exam Psychiatric exam: Anxious - Skin Skin Exam: Dry, Intact, Normal Color, Warm Results - Vital Signs Recent Vital Signs: Last Vital Signs Temp 97.9 F 04/19/17 09:10 Pulse 72 04/19/17 09:10 Resp 20 04/19/17 09:10 BP 146/70 04/19/17 09:10 Pulse Ox 97 04/19/17 09:10 - Labs Result Diagrams: 04/20/17 12:28 04/20/17 12:28 Labs: Laboratory Results - last 24 hr 04/19/17 04/19/17 04/19/17 06:49 11:46 17:18 POC Glucose (mg/dL) 242 H 85 251 H Assessment & Plan (1) Influenza-like illness Status: Acute (2) Anxiety Status: Acute (3) Bronchitis Assessment and Plan: rule out sepsis blood cultures Status: Acute
--- NOTE | 2017-04-19 21:09 | CP.PCM.PN ---
Subjective - Date & Time of Evaluation Date of Evaluation: 04/19/17 Time of Evaluation: 18:30 - Subjective Subjective: PT STILL COUGHING WHEEZING C/O WEAKNESS REQUESTED ID CONSULT Objective - Vital Signs/Intake and Output Vital Signs (last 24 hours): Temp Pulse Resp BP Pulse Ox 97.9 F 72 20 146/70 97 04/19/17 09:10 04/19/17 09:10 04/19/17 09:10 04/19/17 09:10 04/19/17 09:10 Intake and Output: 04/19/17 04/20/17 18:59 06:59 Intake Total 550 Balance 550 - Medications Medications: Current Medications Clonidine HCl (Catapres) 0.1 mg PO BID [facility] Last Admin: 04/19/17 18:10 Dose: 0.1 mg Enoxaparin Sodium (Lovenox) 40 mg SC DAILY [facility] Last Admin: 04/19/17 09:30 Dose: 40 mg Ergocalciferol (Drisdol 50,000 Intl Units Cap) 1 cap PO QWK [facility] Famotidine (Pepcid) 20 mg PO DAILY [facility] Last Admin: 04/19/17 09:30 Dose: 20 mg Azithromycin 500 mg/ Sodium (Chloride) 250 mls @ 250 mls/hr IVPB Q24H [facility] Last Admin: 04/19/17 13:00 Dose: 250 mls/hr Insulin Aspart (Novolog) 6 unit SC ACTID [facility] Last Admin: 04/19/17 18:10 Dose: 6 unit Insulin Human NPH (Novolin N) 10 unit SC Q12 [facility] Last Admin: 04/19/17 09:31 Dose: 10 unit Insulin Human Regular (Novolin R) 0 unit SC ACHS [facility] PRN Reason: Protocol Last Admin: 04/19/17 18:11 Dose: 3 unit Lorazepam (Ativan) 0.5 mg PO BID [facility] Last Admin: 04/19/17 18:11 Dose: 0.5 mg Tacrolimus (Prograf Cap) 1 mg PO Q12 [facility] Last Admin: 04/19/17 13:14 Dose: 1 mg Temazepam (Restoril) 30 mg PO HS PRN PRN Reason: Insomnia Last Admin: 04/19/17 00:18 Dose: 30 mg - Labs Labs: 04/18/17 15:58 04/18/17 15:58
[2017-04-20] MEDS: (Novolog) Insulin Aspart, Recombinant 100 u/ml 10 ml vial SC SCH ×3 (07:49→18:11)
[2017-04-20] MEDS: (Novolin R) Insulin Human Regular 100 units/ml vial SC SCH ×4 (07:51→21:22)
[2017-04-20] MEDS: Enoxaparin 40 mg Syringe SC SCH (11:00)
[2017-04-20] MEDS: (Novolin N) Insulin Human Isophane (NPH) 100 u/ml 10 ml vial SC SCH ×2 (11:00→21:22)
[2017-04-20 12:38] LABS: BASO % 0.8 % (0.0-2.0); EOS # 0.1 K/uL (0.0-0.7); EOS % 4.9 % (0.0-4.0); HEMOGLOBIN 10.5 g/dL (11.0-16.0); LYMPH # 0.7 K/uL (1.0-4.3); LYMPH % 30.5 % (20.0-40.0); MEAN CELL VOLUME 86.7 fL (81.0-99.0); MEAN CORPUSCULAR HEMOGLOBIN 28.8 pg (27.0-31.0); MEAN CORPUSCULAR HGB CONC 33.2 g/dL (33.0-37.0); MEAN PLATELET VOLUME 8.7 fL (7.2-11.7); MONO # 0.1 K/uL (0.0-0.8); MONO % 6.6 % (0.0-10.0); NEUT # 1.2 K/uL (1.8-7.0); NEUT % 57.2 % (50.0-75.0); NRBC % 0.1 % (0.0-2.0); RBC 3.64 Mil/uL (3.80-5.20); RED CELL DISTRIBUTION WIDTH 14.6 % (11.5-14.5); WHITE BLOOD COUNT 2.2 K/uL (4.8-10.8)
[2017-04-20 12:53] LABS: BLOOD UREA NITROGEN 16 mg/dL (7-17); CALCIUM 8.6 mg/dl (8.6-10.4); GFR AFRICAN-AMERICAN > 60; GFR NON-AFRICAN AMERICAN > 60; MAGNESIUM 1.5 mg/dL (1.6-2.3)
[2017-04-20 13:23] LABS: HEPATITIS B SURFACE AG Negative (NEGATIVE)
[2017-04-20] MEDS: Azithromycin 500 MG in Sodium Chloride 0.9% 250 ML IVPB SCH (13:28)
[2017-04-20 13:31] LABS: HEPATITIS A IGM NEGATIVE (NEGATIVE); HEPATITIS B CORE AB NEGATIVE (NEGATIVE)
[2017-04-20 13:40] LABS: HEPATITIS C ANTIBODY NEGATIVE (NEGATIVE)
[2017-04-20] MEDS ORDERED: Influenza Vaccine 60 mcg/0.5 mL SYR (4YR UP) IM ONE (14:00)
--- NOTE | 2017-04-20 17:59 | CP.PCM.CON ---
History of Present Illness - History of Present Illness History of Present Illness: INFECTIOUS DISEASE CONSULT; HPI; 77 year old female presents to the ER with a complaint of a nonproductive cough , congestion, and loose stools. Patient has not taken any treatments so far, she was referred to come in by Dr. Hall. Denies fever or chills. PATIENT GIVES HISTORY OF LIVER TRANSPLANT YEAR 1999 AND PRESENTLY ON IMMUNOSUPPRESSIVE THERAPY INCLUDING PROGRAF PATIENT STATES THAT HER COUGH IS DRY AND SHE IS HAS NO EXPECTORANT FOR THE PAST 3 WEEKS. SHE HAS BEEN TRYING COUGH SYRUPS BUT WITH NO IMPROVEMENT. SHE STATES SHE STARTED HAVING DIARRHEA FOR THE PAST 2 DAYS AND HER APPETITE HAS BEEN POOR. INFECTIOUS DISEASE CONSULTATION REQUESTED BY DR HALL BLOOD CULTURES 2 OUT OF 2 SETS CAME BACK POSITIVE FOR GRAM-POSITIVE COCCI IN CLUSTERS. PATIENT DENIES ANY SICK CONTACTS OR ANY RECENT TRAVEL. pATIENT IS UP-TO-DATE ON HER VACCINATION PMH: Anxiety, Arthritis (L KNEE; BACK), Bipolar Disorder, Bronchitis, CAD, COPD , Depression, Diabetes, Fractures (L leg), Gastritis, HTN, Peripheral Edema, Pneumonia, Pneumothorax (effusion) Surgical History: (x 2) - [facility] Procedures CLOSED ENDOSCOPIC BIOPSY OF LARGE INTESTINE (08/31/13) DRAINAGE OF RIGHT LOWER LOBE BRONCHUS, ENDO, DIAGN (08/03/15) DRAINAGE OF RIGHT MIDDLE LOBE BRONCHUS, ENDO, DIAGN (08/03/15) DRAINAGE OF SPINAL CANAL, PERCUTANEOUS APPROACH, DIAGNOSTIC (08/03/15) ESOPHAGOGASTRODUODENOSCOPY [EGD] W/CLOSED BIOPSY (08/31/13) INSERT INTERCOSTAL CATH (03/15/14) INSERTION OF ENDOTRACHEAL AIRWAY INTO TRACHEA, VIA OPENING (08/03/15) INSERTION OF INFUSION DEV INTO SUP VENA CAVA, PERC APPROACH (08/03/15) OTHER PLEURAL INCISION (03/15/14) REMOVAL OF FB NOS (05/25/13) RESPIRATORY VENTILATION, GREATER THAN 96 CONSECUTIVE HOURS (08/03/15) TRANSFUSE NONAUT PLATELETS IN PERIPH VEIN, PERC (08/03/15) Family History: States: Unknown Family Hx - Social History Hx Tobacco Use: No Hx Alcohol Use: No Hx Substance Use: No - Immunization History Hx Tetanus Toxoid Vaccination: Yes Hx Influenza Vaccination: Yes Hx Pneumococcal Vaccination: Yes Review Of Systems Constitutional: Negative for: Fever, Chills ENT: Positive for: Nose Congestion Cardiovascular: Negative for: Chest Pain, Palpitations Respiratory: Positive for: Cough. Negative for: Shortness of Breath Gastrointestinal: Positive for: Other (Loose stools). Negative for: Nausea, Vomiting Past Patient History - Infectious Disease Hx of Infectious Diseases: None - Past Medical History & Family History Past Medical History?: Yes - Past Social History Smoking Status: Never Smoked - CARDIAC Hx Hypertension: Yes Hx Peripheral Edema: Yes - PULMONARY Hx Bronchitis: Yes Hx Chronic Obstructive Pulmonary Disease (COPD): Yes Hx Pneumonia: Yes - NEUROLOGICAL Hx Neurological Disorder: No - HEENT Hx HEENT Problems: No - RENAL Hx Chronic Kidney Disease: No - ENDOCRINE/METABOLIC Hx Hyperthyroidism: No Hx Hypothyroidism: No - HEMATOLOGICAL/ONCOLOGICAL Hx Anemia: No Hx Human Immunodeficiency Virus (HIV): No Hx Sickle Cell Disease: No - INTEGUMENTARY Hx Dermatological Problems: No - MUSCULOSKELETAL/RHEUMATOLOGICAL Hx Arthritis: Yes (L KNEE; BACK) Hx Falls: No Hx Fractures: Yes (L leg) - GASTROINTESTINAL Hx Gastritis: Yes - GENITOURINARY/GYNECOLOGICAL Hx Sexually Transmitted Disorders: No - PSYCHIATRIC Hx Anxiety: Yes Hx Bipolar Disorder: Yes Hx Depression: Yes Hx Substance Use: No - SURGICAL HISTORY Hx Appendectomy: No Hx Carotid Endarterectomy: No Hx Cholecystectomy: No Hx Coronary Artery Bypass Graft: No Hx Coronary Stent: No Hx Tonsillectomy: No - ANESTHESIA Hx Anesthesia: Yes Hx Anesthesia Reactions: No Hx Malignant Hyperthermia: No Meds Allergies/Adverse Reactions: Allergies Allergy/AdvReac Type Severity Reaction Status Date / Time No Known Allergies Allergy Verified 04/18/17 15:04 - Medications Medications: Current Medications Clonidine HCl (Catapres) 0.1 mg PO BID [facility] Last Admin: 04/20/17 11:00 Dose: 0.1 mg Enoxaparin Sodium (Lovenox) 40 mg SC DAILY [facility] Last Admin: 04/20/17 11:00 Dose: 40 mg Ergocalciferol (Drisdol 50,000 Intl Units Cap) 1 cap PO QWK [facility] Famotidine (Pepcid) 20 mg PO DAILY [facility] Last Admin: 04/20/17 11:00 Dose: 20 mg Azithromycin 500 mg/ Sodium (Chloride) 250 mls @ 250 mls/hr IVPB Q24H [facility] Last Admin: 04/20/17 13:28 Dose: 250 mls/hr Cefepime HCl (Maxipime Iv 1 Gm Premix) 1 gm in 50 mls @ 100 mls/hr IVPB DAILY [facility] Vancomycin/Sodium Chloride (Vancomycin 1 Gm/Ns 200 Ml) 1 gm in 200 mls @ 133.333 mls/hr IVPB Q24H [facility] Insulin Aspart (Novolog) 6 unit SC ACTID [facility] Last Admin: 04/20/17 13:24 Dose: 6 unit Insulin Human NPH (Novolin N) 10 unit SC Q12 [facility] Last Admin: 04/20/17 11:00 Dose: Not Given Insulin Human Regular (Novolin R) 0 unit SC ACHS [facility] PRN Reason: Protocol Last Admin: 04/20/17 13:25 Dose: 4 unit Lorazepam (Ativan) 0.5 mg PO BID [facility] Last Admin: 04/20/17 11:00 Dose: Not Given Oseltamivir Phosphate (Tamiflu Cap) 75 mg PO BID [facility] Stop: 04/25/17 18:01 Tacrolimus (Prograf Cap) 1 mg PO Q12 [facility] Last Admin: 04/20/17 11:00 Dose: 1 mg Temazepam (Restoril) 30 mg PO HS PRN PRN Reason: Insomnia Last Admin: 04/19/17 22:52 Dose: 30 mg Physical Exam - Constitutional Appears: No Acute Distress, Cachectic - Head Exam Head Exam: NORMAL INSPECTION - Eye Exam Eye Exam: EOMI, PERRL. absent: Scleral icterus - ENT Exam ENT Exam: Normal Oropharynx - Neck Exam Neck exam: Positive for: Normal Inspection - Respiratory Exam Respiratory Exam: Rhonchi (BILATERALLY) - Cardiovascular Exam Cardiovascular Exam: REGULAR RHYTHM, +S1, +S2 - GI/Abdominal Exam GI & Abdominal Exam: Normal Bowel Sounds, Soft. absent: Tenderness (SCAR OF PREVIOUS SURGERY NOTED ANTERIORLY ABDOMEN.) - Extremities Exam Extremities exam: Positive for: pedal pulses present. Negative for: calf tenderness, pedal edema - Neurological Exam Neurological exam: Alert, CN II-XII Intact, Oriented x3, Reflexes Normal - Psychiatric Exam Psychiatric exam: Normal Mood - Skin Skin Exam: Normal Color, Warm Results - Vital Signs Recent Vital Signs: Last Vital Signs Temp 98.2 F 04/20/17 16:00 Pulse 68 04/20/17 16:00 Resp 20 04/20/17 16:00 BP 121/71 04/20/17 16:00 Pulse Ox 95 04/20/17 16:00 - Labs Result Diagrams: 04/20/17 12:28 04/20/17 12:28 Labs: Laboratory Results - last 24 hr 04/19/17 04/20/17 04/20/17 21:41 06:30 06:31 WBC RBC Hgb Hct MCV MCH MCHC RDW Plt Count MPV Neut % (Auto) Lymph % (Auto) Sawyer % (Auto) Eos % (Auto) Baso % (Auto) Neut # Lymph # Sawyer # Eos # Baso # Sodium Potassium Chloride Carbon Dioxide Anion Gap BUN Creatinine Est GFR ( Amer) Est GFR (Non-Af Amer) POC Glucose (mg/dL) 302 H 29 L* 32 L* Random Glucose Calcium Phosphorus Magnesium Hepatitis A IgM Ab Hep Bs Antigen Hep B Core IgM Ab Hepatitis C Antibody HIV 1&2 Antibody Screen 04/20/17 04/20/17 04/20/17 07:09 11:49 12:28 WBC RBC Hgb Hct MCV MCH MCHC RDW Plt Count MPV Neut % (Auto) Lymph % (Auto) Sawyer % (Auto) Eos % (Auto) Baso % (Auto) Neut # Lymph # Sawyer # Eos # Baso # Sodium Potassium Chloride Carbon Dioxide Anion Gap BUN Creatinine Est GFR ( Amer) Est GFR (Non-Af Amer) POC Glucose (mg/dL) 167 H 319 H Random Glucose Calcium Phosphorus Magnesium Hepatitis A IgM Ab Negative Hep Bs Antigen Negative Hep B Core IgM Ab Negative Hepatitis C Antibody Negative HIV 1&2 Antibody Screen 04/20/17 04/20/17 04/20/17 12:28 12:28 12:28 WBC 2.2 L RBC 3.64 L Hgb 10.5 L Hct 31.6 L MCV 86.7 MCH 28.8 MCHC 33.2 RDW 14.6 H Plt Count 81 L MPV 8.7 Neut % (Auto) 57.2 Lymph % (Auto) 30.5 Sawyer % (Auto) 6.6 Eos % (Auto) 4.9 H Baso % (Auto) 0.8 Neut # 1.2 L Lymph # 0.7 L Sawyer # 0.1 Eos # 0.1 Baso # 0.0 Sodium 130 L Potassium 4.5 Chloride 99 Carbon Dioxide 28 Anion Gap 8 L BUN 16 Creatinine 0.8 Est GFR ( Amer) > 60 Est GFR (Non-Af Amer) > 60 POC Glucose (mg/dL) Random Glucose 358 H Calcium 8.6 Phosphorus 3.1 Magnesium 1.5 L Hepatitis A IgM Ab Hep Bs Antigen Hep B Core IgM Ab Hepatitis C Antibody HIV 1&2 Antibody Screen Negative 04/20/17 16:23 WBC RBC Hgb Hct MCV MCH MCHC RDW Plt Count MPV Neut % (Auto) Lymph % (Auto) Sawyer % (Auto) Eos % (Auto) Baso % (Auto) Neut # Lymph # Sawyer # Eos # Baso # Sodium Potassium Chloride Carbon Dioxide Anion Gap BUN Creatinine Est GFR ( Amer) Est GFR (Non-Af Amer) POC Glucose (mg/dL) 151 H Random Glucose Calcium Phosphorus Magnesium Hepatitis A IgM Ab Hep Bs Antigen Hep B Core IgM Ab Hepatitis C Antibody HIV 1&2 Antibody Screen - Imaging and Cardiology Chest x-ray Status: Report reviewed by me (chest x-ray patchy increased markings left lung base ? atelectasis versus infiltrate. Right paratracheal opacity. Left hilar prominence.) Assessment & Plan (1) Gram positive septicemia Status: Acute (2) Influenza-like illness Status: Acute (3) Anxiety Status: Acute (4) Diabetes mellitus, insulin dependent (IDDM), uncontrolled Status: Acute (5) S/P liver transplant Status: Acute - Assessment and Plan (Free Text) Plan: PLAN; PANCULTURES; ESR, CRP, MRSA SCREEN. START iv VANCOMYCIN 1 G ONCE A DAY DAILY GRAM-POSITIVE SEPTICEMIA 04/20/17. START tAMIFLU 75 MG BY MOUTH TWICE A DAY FOR 5 DAYS .04/20/17. START iv CEFEPIME 1 G EVERY 24 HOURLY 04/20/17. CONTINUE zITHROMAX 500 MG ONCE A DAY DAILY FOR ATYPICAL PATHOGENS.04/19/17 STOOLS FOR CULTURE. STOOLS FOR LEUKOCYTES. URINARY ANTIGEN FOR lEGIONELLA INFLUENZA a AND b ANTIBODY RAPID INFLUENZA A AND b ANTIGENS. PATIENT REFUSES TO BE BY HERSELF IN THE ROOM AND REFUSES TO BE PLACED IN ISOLATION BECAUSE OF HER ANXIETY. WE'LL FOLLOW ALONG WITH YOU. fOLLOW-UP CULTURES TO ADJUST ANTIBIOTICS.
[2017-04-20] MEDS: Vancomycin 1 gm/NS 200 ml 1 GM/200 ML BAG IVPB SCH (18:13)
[2017-04-20] MEDS ORDERED: Dextrose 50% VIAL Inj (50 ml) IV ONE ×2 (20:23)
--- NOTE | 2017-04-20 20:51 | PCM.RRT ---
[employer] Nurses Assessment - Situation Date: 04/20/17 Time [employer] was called: 20:20 [employer] Location:: Med/Surg Room Number: 568 [employer] Called By: RN - Ventilator Settings Ventilator Respiratory Rate Settin Ventilator Tidal Volume Settin I.Reason for [employer] - A) Acute Change in Patient: Subjective: Patient is a 77 year old female type 2 DM on insulin, anxiety and depression, pt also is a known case of liver failure s/p liver transplantation over 15 years ago, who is admitted for flu-like symptoms. Rapid response was called for symptomatic hypoglycemic episode, with blood sugar in the 20s. Patient called out for help because she became very weak and diaphoretic. Patient was given an amp of D50 and blood sugar was then 315. - Neurological Status (Select all that apply): Responsive, Oriented, Verbal - Respiratory Oxygen Delivery Method: Room Air - Constitutional Appears: No Acute Distress - Head Head Exam: ATRAUMATIC, NORMAL INSPECTION - Eyes Eye Exam: EOMI - Respiratory Exam Respiratory Exam: NORMAL BREATHING PATTERN - Cardiovascular Exam Cardiovascular Exam: REGULAR RHYTHM, +S1, +S2 - GI/Abdominal Exam GI & Abdominal Exam: Soft, Normal Bowel Sounds - Extremities Exam Extremities Exam: Normal Inspection Plan - Assessment of Findings&Treatment Plan Patient is a 77 year old female type 2 DM on insulin, anxiety and depression, pt also is a known case of liver failure s/p liver transplantation over 15 years ago, who is admitted for flu-like symptoms. Rapid response was called for symptomatic hypoglycemia with blood sugar in the 20s: Plan: 1. 1 amp of D50, repeat blood sugar 315. Patient remained labile and anxious 2. EKG and STAT troponin ordered: Will follow 3. Novolin R 10 units night dose held as per primary 4. Primary provider, Dr. Hall notified Plans discussed with [employer] Kinder[employer] Teacher, Dr. Lazo
--- NOTE | 2017-04-20 22:18 | CP.PCM.PN ---
Subjective - Date & Time of Evaluation Date of Evaluation: 04/20/17 Time of Evaluation: 19:50 - Subjective Subjective: pt has sepsis, blood cultures positive for GRAM POS , IT COULD BE MRSA PENDING SENSITIVITY, ID STARTED PT ON VANCO Objective - Vital Signs/Intake and Output Vital Signs (last 24 hours): Temp Pulse Resp BP Pulse Ox 98.2 F 68 20 121/71 95 04/20/17 16:00 04/20/17 16:00 04/20/17 16:00 04/20/17 16:00 04/20/17 16:00 - Medications Medications: Current Medications Clonidine HCl (Catapres) 0.1 mg PO BID [facility] Last Admin: 04/20/17 18:11 Dose: 0.1 mg Enoxaparin Sodium (Lovenox) 40 mg SC DAILY [facility] Last Admin: 04/20/17 11:00 Dose: 40 mg Ergocalciferol (Drisdol 50,000 Intl Units Cap) 1 cap PO QWK [facility] Famotidine (Pepcid) 20 mg PO DAILY [facility] Last Admin: 04/20/17 11:00 Dose: 20 mg Azithromycin 500 mg/ Sodium (Chloride) 250 mls @ 250 mls/hr IVPB Q24H [facility] Last Admin: 04/20/17 13:28 Dose: 250 mls/hr Cefepime HCl (Maxipime Iv 1 Gm Premix) 1 gm in 50 mls @ 100 mls/hr IVPB DAILY [facility] Vancomycin/Sodium Chloride (Vancomycin 1 Gm/Ns 200 Ml) 1 gm in 200 mls @ 133.333 mls/hr IVPB Q24H [facility] Last Admin: 04/20/17 18:13 Dose: 133.333 mls/hr Insulin Aspart (Novolog) 6 unit SC ACTID [facility] Last Admin: 04/20/17 18:11 Dose: 6 unit Insulin Human NPH (Novolin N) 10 unit SC Q12 [facility] Last Admin: 04/20/17 21:22 Dose: Not Given Insulin Human Regular (Novolin R) 0 unit SC ACHS [facility] PRN Reason: Protocol Last Admin: 04/20/17 21:22 Dose: Not Given Lorazepam (Ativan) 0.5 mg PO BID [facility] Last Admin: 04/20/17 18:11 Dose: 0.5 mg Oseltamivir Phosphate (Tamiflu Cap) 75 mg PO BID [facility] Stop: 04/25/17 18:01 Last Admin: 04/20/17 18:11 Dose: 75 mg Tacrolimus (Prograf Cap) 1 mg PO Q12 [facility] Last Admin: 04/20/17 11:00 Dose: 1 mg Temazepam (Restoril) 30 mg PO HS PRN PRN Reason: Insomnia Last Admin: 04/19/17 22:52 Dose: 30 mg - Labs Labs: 04/20/17 12:28 04/20/17 12:28 - Constitutional Appears: No Acute Distress - Head Exam Head Exam: ATRAUMATIC, NORMAL INSPECTION, NORMOCEPHALIC - Eye Exam Eye Exam: EOMI, Normal appearance, PERRL Pupil Exam: NORMAL ACCOMODATION, PERRL - Respiratory Exam Respiratory Exam: Decreased Breath Sounds, Rales, Rhonchi - Cardiovascular Exam Cardiovascular Exam: REGULAR RHYTHM, +S1, +S2. absent: Murmur - GI/Abdominal Exam GI & Abdominal Exam: Soft, Normal Bowel Sounds. 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
--- NOTE | 2017-04-20 22:51 | CARD ---
APPROVED REPORT EKG Measurement Heart [id number] <Conclusion> Normal sinus rhythm Normal ECG
[2017-04-21 00:17] LABS: FOLATE 18.2 ng/mL
[2017-04-21] MEDS: (Novolin R) Insulin Human Regular 100 units/ml vial SC SCH ×4 (07:43→22:06)
[2017-04-21] MEDS: (Novolog) Insulin Aspart, Recombinant 100 u/ml 10 ml vial SC SCH ×3 (08:43→16:30)
[2017-04-21] MEDS: Enoxaparin 40 mg Syringe SC SCH (09:23)
[2017-04-21] MEDS: (Novolin N) Insulin Human Isophane (NPH) 100 u/ml 10 ml vial SC SCH (09:23)
[2017-04-21] MEDS: Cefepime IV 1 gm in Dextrose 1 GM/50 ML BAG IVPB SCH (09:24)
[2017-04-21 10:21] LABS: BASO % 0.5 % (0.0-2.0); EOS # 0.2 K/uL (0.0-0.7); EOS % 5.6 % (0.0-4.0); HEMOGLOBIN 11.8 g/dL (11.0-16.0); MEAN CELL VOLUME 87.8 fL (81.0-99.0); MEAN CORPUSCULAR HEMOGLOBIN 29.6 pg (27.0-31.0); MEAN CORPUSCULAR HGB CONC 33.7 g/dL (33.0-37.0); MEAN PLATELET VOLUME 9.2 fL (7.2-11.7); MONO # 0.2 K/uL (0.0-0.8); MONO % 5.8 % (0.0-10.0); NEUT # 2.8 K/uL (1.8-7.0); NEUT % 65.1 % (50.0-75.0); NRBC % 0.1 % (0.0-2.0); RBC 3.99 Mil/uL (3.80-5.20); RED CELL DISTRIBUTION WIDTH 14.4 % (11.5-14.5)
[2017-04-21 10:22] LABS: WHITE BLOOD COUNT 4.3 K/uL (4.8-10.8)
[2017-04-21 10:55] LABS: ALB/GLOB RATIO 1.1 (1.0-2.1); ALBUMIN 3.6 g/dL (3.5-5.0)
[2017-04-21] MEDS ORDERED: (Novolin R) Insulin Human Regular 100 units/ml vial SC SCH (11:30)
[2017-04-21] MEDS: Azithromycin 500 MG in Sodium Chloride 0.9% 250 ML IVPB SCH (13:37)
[2017-04-21 15:34] LABS: SQUAMOUS EPITHIAL 1 /hpf (0-5); URINE BILIRUBIN NEGATIVE (NEGATIVE); URINE BLOOD NEGATIVE (NEGATIVE); URINE CLARITY Clear (Clear); URINE COLOR Yellow (YELLOW); URINE GLUCOSE (UA) 3+ mg/dL (Normal); URINE LEUKOCYTE ESTERASE NEG Leu/uL (Negative); URINE NITRATE NEGATIVE (NEGATIVE); URINE PROTEIN NEGATIVE (NEGATIVE); URINE UROBILINOGEN NORMAL mg/dL (0.2-1.0)
[2017-04-21] MEDS: Vancomycin 1 gm/NS 200 ml 1 GM/200 ML BAG IVPB SCH (18:51)
--- NOTE | 2017-04-21 19:29 | CP.PCM.PN ---
Subjective - Date & Time of Evaluation Date of Evaluation: 04/21/17 Time of Evaluation: 19:29 - Subjective Subjective: afebrile c/o dry cough Wants a cough expectorant. Labs reviewed Blood cultures positive for staph coagulase negative Repeat blood cultures 04/19/17 negative for 24 hours. esr 54 LFTS ast 80 ALT 58 ALKALINE PHOSPHATASE 209. Objective - Vital Signs/Intake and Output Vital Signs (last 24 hours): Temp Pulse Resp BP Pulse Ox 97.9 F 70 20 103/66 96 04/21/17 16:12 04/21/17 16:12 04/21/17 16:12 04/21/17 16:12 04/21/17 16:12 Intake and Output: 04/21/17 04/22/17 18:59 06:59 Intake Total 700 Balance 700 - Medications Medications: Current Medications Clonidine HCl (Catapres) 0.1 mg PO BID [facility] Last Admin: 04/21/17 18:52 Dose: 0.1 mg Enoxaparin Sodium (Lovenox) 40 mg SC DAILY [facility] Last Admin: 04/21/17 09:23 Dose: 40 mg Ergocalciferol (Drisdol 50,000 Intl Units Cap) 1 cap PO QWK [facility] Famotidine (Pepcid) 20 mg PO DAILY [facility] Last Admin: 04/21/17 09:23 Dose: 20 mg Cefepime HCl (Maxipime Iv 1 Gm Premix) 1 gm in 50 mls @ 100 mls/hr IVPB DAILY [facility] Last Admin: 04/21/17 09:24 Dose: 100 mls/hr Vancomycin/Sodium Chloride (Vancomycin 1 Gm/Ns 200 Ml) 1 gm in 200 mls @ 133.333 mls/hr IVPB Q24H [facility] Last Admin: 04/21/17 18:51 Dose: 133.333 mls/hr Azithromycin 250 mg/ Sodium (Chloride) 250 mls @ 250 mls/hr IVPB Q24H [facility] Insulin Aspart (Novolog) 6 unit SC ACTID [facility] Last Admin: 04/21/17 16:30 Dose: Not Given Insulin Human NPH (Novolin N) 10 unit SC Q12 [facility] Last Admin: 04/21/17 09:23 Dose: 10 unit Insulin Human Regular (Novolin R) 4 unit SC BID [facility] Last Admin: 04/21/17 17:59 Dose: Not Given Insulin Human Regular (Novolin R) 0 unit SC ACHS [facility] PRN Reason: Protocol Last Admin: 04/21/17 16:30 Dose: Not Given Lorazepam (Ativan) 0.5 mg PO BID [facility] Last Admin: 04/21/17 18:55 Dose: Not Given Oseltamivir Phosphate (Tamiflu Cap) 75 mg PO BID [facility] Stop: 04/25/17 18:01 Last Admin: 04/21/17 18:51 Dose: 75 mg Promethazine HCl/Dextromethorphan (Phenergan Dm Syrup) 5 ml PO Q6 [facility] Tacrolimus (Prograf Cap) 1 mg PO Q12 [facility] Temazepam (Restoril) 30 mg PO HS PRN PRN Reason: Insomnia Last Admin: 04/20/17 23:13 Dose: 30 mg - Labs Labs: 04/21/17 08:26 04/21/17 09:07 - Constitutional Appears: No Acute Distress, Cachectic - Head Exam Head Exam: NORMAL INSPECTION - Eye Exam Eye Exam: EOMI, PERRL - ENT Exam ENT Exam: Normal Oropharynx - Neck Exam Neck Exam: Normal Inspection - Respiratory Exam Respiratory Exam: Prolonged Expiratory Phase - Cardiovascular Exam Cardiovascular Exam: REGULAR RHYTHM, +S1, +S2 - GI/Abdominal Exam GI & Abdominal Exam: Soft, Normal Bowel Sounds. absent: Tenderness - Extremities Exam Extremities Exam: Normal Capillary Refill. absent: Calf Tenderness, Pedal Edema - Neurological Exam Neurological Exam: Awake, CN II-XII Intact, Oriented x3, Reflexes Normal - Psychiatric Exam Psychiatric exam: Normal Mood - Skin Skin Exam: Normal Color, Warm Assessment and Plan (1) Gram positive septicemia Assessment & Plan: BLOOD CULTURES 04/18/17 STAPH COAGULASE NEGATIVE ? CONTAMINANT REPEAT BLOOD CULTURES 04/20/17 NEGATIVE FOR 24 HOURS. PATIENT ON IV ANTIBIOTICS Status: Acute (2) Influenza-like illness Assessment & Plan: STILL COMPLAINS OF COUGH DRY WITH NO EXPECTORATION. cONTINUE tAMIFLU cONTINUE zITHROMAX DECREASED DOSE TO 250 ONCE A DAY DAILY IN VIEW OF ELEVATED TRANSAMINASES. fOLLOW-UP ATYPICAL TITERS. Status: Acute (3) Anxiety Status: Acute (4) Diabetes mellitus, insulin dependent (IDDM), uncontrolled Status: Acute (5) S/P liver transplant Assessment & Plan: ELEVATED TRANSAMINASES NOTED. CHECK HEPATITIS SCREEN A,B,C ANTIBODY. fOLLOW-UP lftS IN A.M. Status: Acute
[2017-04-21] MEDS: Promethazine DM 6.25 mg-15 mg/5 ml Syrup PO SCH (20:30)
--- NOTE | 2017-04-21 21:57 | CP.PCM.CON ---
History of Present Illness - History of Present Illness History of Present Illness: hypoglycemia Past Patient History - Infectious Disease Hx of Infectious Diseases: None - Past Medical History & Family History Past Medical History?: Yes - Past Social History Smoking Status: Never Smoked - CARDIAC Hx Hypertension: Yes Hx Peripheral Edema: Yes - PULMONARY Hx Bronchitis: Yes Hx Chronic Obstructive Pulmonary Disease (COPD): Yes Hx Pneumonia: Yes - NEUROLOGICAL Hx Neurological Disorder: No - HEENT Hx HEENT Problems: No - RENAL Hx Chronic Kidney Disease: No - ENDOCRINE/METABOLIC Hx Hyperthyroidism: No Hx Hypothyroidism: No - HEMATOLOGICAL/ONCOLOGICAL Hx Anemia: No Hx Human Immunodeficiency Virus (HIV): No Hx Sickle Cell Disease: No - INTEGUMENTARY Hx Dermatological Problems: No - MUSCULOSKELETAL/RHEUMATOLOGICAL Hx Arthritis: Yes (L KNEE; BACK) Hx Falls: No Hx Fractures: Yes (L leg) - GASTROINTESTINAL Hx Gastritis: Yes - GENITOURINARY/GYNECOLOGICAL Hx Sexually Transmitted Disorders: No - PSYCHIATRIC Hx Anxiety: Yes Hx Bipolar Disorder: Yes Hx Depression: Yes Hx Substance Use: No - SURGICAL HISTORY Hx Appendectomy: No Hx Carotid Endarterectomy: No Hx Cholecystectomy: No Hx Coronary Artery Bypass Graft: No Hx Coronary Stent: No Hx Tonsillectomy: No - ANESTHESIA Hx Anesthesia: Yes Hx Anesthesia Reactions: No Hx Malignant Hyperthermia: No Meds Allergies/Adverse Reactions: Allergies Allergy/AdvReac Type Severity Reaction Status Date / Time No Known Allergies Allergy Verified 04/18/17 15:04 - Medications Medications: Current Medications Clonidine HCl (Catapres) 0.1 mg PO BID [facility] Last Admin: 04/21/17 18:52 Dose: 0.1 mg Enoxaparin Sodium (Lovenox) 40 mg SC DAILY [facility] Last Admin: 04/21/17 09:23 Dose: 40 mg Ergocalciferol (Drisdol 50,000 Intl Units Cap) 1 cap PO QWK [facility] Famotidine (Pepcid) 20 mg PO DAILY [facility] Last Admin: 04/21/17 09:23 Dose: 20 mg Cefepime HCl (Maxipime Iv 1 Gm Premix) 1 gm in 50 mls @ 100 mls/hr IVPB DAILY [facility] Last Admin: 04/21/17 09:24 Dose: 100 mls/hr Vancomycin/Sodium Chloride (Vancomycin 1 Gm/Ns 200 Ml) 1 gm in 200 mls @ 133.333 mls/hr IVPB Q24H [facility] Last Admin: 04/21/17 18:51 Dose: 133.333 mls/hr Azithromycin 250 mg/ Sodium (Chloride) 250 mls @ 250 mls/hr IVPB Q24H [facility] Insulin Human Regular (Novolin R) 4 unit SC BID [facility] Last Admin: 04/21/17 17:59 Dose: Not Given Insulin Human Regular (Novolin R) 0 unit SC ACHS [facility] PRN Reason: Protocol Last Admin: 04/21/17 16:30 Dose: Not Given Lorazepam (Ativan) 0.5 mg PO BID [facility] Last Admin: 04/21/17 18:55 Dose: Not Given Oseltamivir Phosphate (Tamiflu Cap) 75 mg PO BID [facility] Stop: 04/25/17 18:01 Last Admin: 04/21/17 18:51 Dose: 75 mg Promethazine HCl/Dextromethorphan (Phenergan Dm Syrup) 5 ml PO Q6 [facility] Tacrolimus (Prograf Cap) 1 mg PO Q12 [facility] Temazepam (Restoril) 30 mg PO HS PRN PRN Reason: Insomnia Last Admin: 04/20/17 23:13 Dose: 30 mg Results - Vital Signs Recent Vital Signs: Last Vital Signs Temp 97.9 F 04/21/17 16:12 Pulse 70 04/21/17 16:12 Resp 20 04/21/17 16:12 BP 103/66 04/21/17 16:12 Pulse Ox 96 04/21/17 16:12 - Labs Result Diagrams: 04/21/17 08:26 04/21/17 09:07 Labs: Laboratory Results - last 24 hr 04/20/17 04/20/17 04/21/17 09:32 22:55 02:43 WBC RBC Hgb Hct MCV MCH MCHC RDW Plt Count MPV Neut % (Auto) Lymph % (Auto) [place] % (Auto) Eos % (Auto) Baso % (Auto) Neut # Lymph # [place] # Eos # Baso # ESR Sodium Potassium Chloride Carbon Dioxide Anion Gap BUN Creatinine Est GFR ( Amer) Est GFR (Non-Af Amer) POC Glucose (mg/dL) 206 H Random Glucose Calcium Total Bilirubin AST ALT Alkaline Phosphatase Troponin I < 0.0120 C-React Prot High Sens Total Protein Albumin Globulin Albumin/Globulin Ratio Vitamin B12 812 Folate 18.2 Urine Color Urine Clarity Urine pH Ur Specific [place] Urine Protein Urine Glucose (UA) Urine Ketones Urine Blood Urine Nitrate Urine Bilirubin Urine Urobilinogen Ur Leukocyte Esterase Urine WBC (Auto) Urine RBC (Auto) Ur Squamous Epith Cells Stool Leukocytes, Qual Negative RPR C. difficile Ag & Toxin 04/21/17 04/21/17 04/21/17 06:26 08:26 08:26 WBC 4.3 L D RBC 3.99 Hgb 11.8 Hct 35.0 MCV 87.8 MCH 29.6 MCHC 33.7 RDW 14.4 Plt Count 88 L MPV 9.2 Neut % (Auto) 65.1 Lymph % (Auto) 23.0 Nobles % (Auto) 5.8 Eos % (Auto) 5.6 H Baso % (Auto) 0.5 Neut # 2.8 Lymph # 1.0 Nobles # 0.2 Eos # 0.2 Baso # 0.0 ESR 54 H Sodium Potassium Chloride Carbon Dioxide Anion Gap BUN Creatinine Est GFR ( Amer) Est GFR (Non-Af Amer) POC Glucose (mg/dL) 361 H Random Glucose Calcium Total Bilirubin AST ALT Alkaline Phosphatase Troponin I C-React Prot High Sens 5.86 H Total Protein Albumin Globulin Albumin/Globulin Ratio Vitamin B12 Folate Urine Color Urine Clarity Urine pH Ur Specific [place] Urine Protein Urine Glucose (UA) Urine Ketones Urine Blood Urine Nitrate Urine Bilirubin Urine Urobilinogen Ur Leukocyte Esterase Urine WBC (Auto) Urine RBC (Auto) Ur Squamous Epith Cells Stool Leukocytes, Qual RPR C. difficile Ag & Toxin 04/21/17 04/21/17 04/21/17 09:07 09:32 11:43 WBC RBC Hgb Hct MCV MCH MCHC RDW Plt Count MPV Neut % (Auto) Lymph % (Auto) [place] % (Auto) Eos % (Auto) Baso % (Auto) Neut # Lymph # [place] # Eos # Baso # ESR Sodium 131 L Potassium 4.7 Chloride 100 Carbon Dioxide 21 L Anion Gap 15 BUN 20 H Creatinine 1.1 Est GFR ( Amer) 58 Est GFR (Non-Af Amer) 48 POC Glucose (mg/dL) 438 H* Random Glucose 426 H* Calcium 9.0 Total Bilirubin 0.9 AST 80 H D ALT 58 H Alkaline Phosphatase 209 H D Troponin I C-React Prot High Sens Total Protein 6.8 Albumin 3.6 Globulin 3.2 Albumin/Globulin Ratio 1.1 Vitamin B12 Folate Urine Color Urine Clarity Urine pH Ur Specific [place] Urine Protein Urine Glucose (UA) Urine Ketones Urine Blood Urine Nitrate Urine Bilirubin Urine Urobilinogen Ur Leukocyte Esterase Urine WBC (Auto) Urine RBC (Auto) Ur Squamous Epith Cells Stool Leukocytes, Qual RPR C. difficile Ag & Toxin Negative 04/21/17 04/21/17 04/21/17 11:45 15:18 15:59 WBC RBC Hgb Hct MCV MCH MCHC RDW Plt Count MPV Neut % (Auto) Lymph % (Auto) Nobles % (Auto) Eos % (Auto) Baso % (Auto) Neut # Lymph # [place]les # Eos # Baso # ESR Sodium Potassium Chloride Carbon Dioxide Anion Gap BUN Creatinine Est GFR ( Amer) Est GFR (Non-Af Amer) POC Glucose (mg/dL) 414 H* Random Glucose Calcium Total Bilirubin AST ALT Alkaline Phosphatase Troponin I C-React Prot High Sens Total Protein Albumin Globulin Albumin/Globulin Ratio Vitamin B12 Folate Urine Color Yellow Urine Clarity Clear Urine pH 6.0 Ur Specific [place] 1.016 Urine Protein Negative Urine Glucose (UA) 3+ H Urine Ketones Negative Urine Blood Negative Urine Nitrate Negative Urine Bilirubin Negative Urine Urobilinogen Normal Ur Leukocyte Esterase Neg Urine WBC (Auto) 2 Urine RBC (Auto) 3 Ur Squamous Epith Cells 1 Stool Leukocytes, Qual RPR Nonreactive C. difficile Ag & Toxin 04/21/17 04/21/17 16:15 21:07 WBC RBC Hgb Hct MCV MCH MCHC RDW Plt Count MPV Neut % (Auto) Lymph % (Auto) Nobles % (Auto) Eos % (Auto) Baso % (Auto) Neut # Lymph # [place] # Eos # Baso # ESR Sodium Potassium Chloride Carbon Dioxide Anion Gap BUN Creatinine Est GFR ( Amer) Est GFR (Non-Af Amer) POC Glucose (mg/dL) 144 H 245 H Random Glucose Calcium Total Bilirubin AST ALT Alkaline Phosphatase Troponin I C-React Prot High Sens Total Protein Albumin Globulin Albumin/Globulin Ratio Vitamin B12 Folate Urine Color Urine Clarity Urine pH Ur Specific [place] Urine Protein Urine Glucose (UA) Urine Ketones Urine Blood Urine Nitrate Urine Bilirubin Urine Urobilinogen Ur Leukocyte Esterase Urine WBC (Auto) Urine RBC (Auto) Ur Squamous Epith Cells Stool Leukocytes, Qual RPR C. difficile Ag & Toxin Assessment & Plan (1) Hypoglycemia due to insulin Status: Acute (2) Diabetes mellitus, insulin dependent (IDDM), uncontrolled Assessment and Plan: Endocrine consult reason for consult: hypoglycemia /uncontrolled diabetes Source: patient & chart review Ms. Mckenna is 77 y/o admitted for flu like symtoms , on immunosupressive thyrapy for liver trasplant , on antibiotics as per pt. has DM x 30 years (-) neuropathy , (-) retinopathy , (-) nephropathy (-) CAD (-) PVD outpatient diabetes management regimen : NPH 10 units bid & humalog 6 units tid inpatient diabetes management regimen: NPH 10 units bid , Novolog 6 units tid blood glucose log : today 200-400 , 144-200 ,NO hypoglycemia yesterday glucose <30 & < 20 as per felt almost passing out , as per pt did not feel like eat hospital food , howver as per nurse in charge eat almost 100 % Allergy NKDA Past medical history: hep c Past surgical history: s/p liver trasplant & CS Psychiatry history: (+) psychiatry disorder Social history : denies smoking , ETOH use or illicit drug use Family history : father with diabetes ROS: Constitutional: denies fever,(+) tiredness/weakness. HEENT: denies earache, change in voice .Respiratory: (+) cough, sob . CVS :no chest pain, no palpitations . Abdomen: no abdominal pain, no nausea /vomiting, no change bowel movement. 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 Extremities: no edema, no tremors. Skin: no itching, no rash Physical exam Well-developed AAO x3 , ,NAD VSS HEENT: norm cephalic, atraumatic, no lid lag , no exophthalmos NECK: supple, no palpable lymphadenopathy THYROID: no palpable thyromegaly, not tender CHEST: fair air entry, bilateral, CVS: S1,S2 ABDOMEN: bowel sound present, benign, obese, no wide purple striae , no bruises EXTREMITIES: no edema, clubbing or cyanosis, no palpable hand tremors Skin: acanthosis nigricans lab: 03/2017 cr 1.1, urine 3+ glucose 10/2016 tsh 2.90 , a1c 8.9 Assessment sever symptomatic hypoglycemia uncontrolled IDDM flu like symtoms s/p liver trasplant on immunosuppressive therpay plan d/c NPH 10 units bid d/c Novolog 6 units tid start Novoloin R low dose coverage, no 3 am coverage start novoloin R 4 units tid with meals if eat > 60% obtain a1c & TSH plan communicated with nurse in charge Thank you for allowing me to participate in the care of the patient, we will follow with you. Status: Acute (3) Influenza-like illness Status: Acute (4) S/P liver transplant Status: Acute
--- NOTE | 2017-04-21 23:49 | CP.PCM.PN ---
Subjective - Date & Time of Evaluation Date of Evaluation: 04/21/17 Time of Evaluation: 19:45 - Subjective Subjective: Pt seen and examined at bedside Objective - Vital Signs/Intake and Output Vital Signs (last 24 hours): Temp Pulse Resp BP Pulse Ox 98 F 79 18 132/79 96 04/21/17 23:15 04/21/17 23:15 04/21/17 23:15 04/21/17 23:15 04/21/17 23:15 Intake and Output: 04/21/17 04/22/17 18:59 06:59 Intake Total 700 750 Balance 700 750 - Medications Medications: Current Medications Clonidine HCl (Catapres) 0.1 mg PO BID [facility] Last Admin: 04/21/17 18:52 Dose: 0.1 mg Enoxaparin Sodium (Lovenox) 40 mg SC DAILY [facility] Last Admin: 04/21/17 09:23 Dose: 40 mg Ergocalciferol (Drisdol 50,000 Intl Units Cap) 1 cap PO QWK [facility] Famotidine (Pepcid) 20 mg PO DAILY [facility] Last Admin: 04/21/17 09:23 Dose: 20 mg Cefepime HCl (Maxipime Iv 1 Gm Premix) 1 gm in 50 mls @ 100 mls/hr IVPB DAILY [facility] Last Admin: 04/21/17 09:24 Dose: 100 mls/hr Vancomycin/Sodium Chloride (Vancomycin 1 Gm/Ns 200 Ml) 1 gm in 200 mls @ 133.333 mls/hr IVPB Q24H [facility] Last Admin: 04/21/17 18:51 Dose: 133.333 mls/hr Azithromycin 250 mg/ Sodium (Chloride) 250 mls @ 250 mls/hr IVPB Q24H [facility] Insulin Human Regular (Novolin R) 4 unit SC BID [facility] Last Admin: 04/21/17 17:59 Dose: Not Given Insulin Human Regular (Novolin R) 0 unit SC ACHS [facility] PRN Reason: Protocol Last Admin: 04/21/17 22:06 Dose: Not Given Lorazepam (Ativan) 0.5 mg PO BID [facility] Last Admin: 04/21/17 18:55 Dose: Not Given Oseltamivir Phosphate (Tamiflu Cap) 75 mg PO BID [facility] Stop: 04/25/17 18:01 Last Admin: 04/21/17 18:51 Dose: 75 mg Promethazine HCl/Dextromethorphan (Phenergan Dm Syrup) 5 ml PO Q6 [facility] Last Admin: 04/21/17 20:30 Dose: 5 ml Tacrolimus (Prograf Cap) 1 mg PO Q12 [facility] Temazepam (Restoril) 30 mg PO HS PRN PRN Reason: Insomnia Last Admin: 04/21/17 21:54 Dose: 30 mg - Labs Labs: 04/21/17 08:26 04/21/17 09:07
[2017-04-22] MEDS: Promethazine DM 6.25 mg-15 mg/5 ml Syrup PO SCH ×4 (00:08→18:56)
[2017-04-22] MEDS: (Novolin R) Insulin Human Regular 100 units/ml vial SC SCH ×7 (06:18→22:03)
[2017-04-22 08:28] LABS: BASO % 0.8 % (0.0-2.0); EOS # 0.3 K/uL (0.0-0.7); LYMPH # 0.7 K/uL (1.0-4.3); LYMPH % 26.8 % (20.0-40.0); MEAN CELL VOLUME 87.7 fL (81.0-99.0); MEAN CORPUSCULAR HEMOGLOBIN 30.1 pg (27.0-31.0); MEAN CORPUSCULAR HGB CONC 34.3 g/dL (33.0-37.0); MEAN PLATELET VOLUME 8.7 fL (7.2-11.7); MONO # 0.2 K/uL (0.0-0.8); MONO % 6.9 % (0.0-10.0); NEUT # 1.3 K/uL (1.8-7.0); NEUT % 53.5 % (50.0-75.0); NRBC % 0.1 % (0.0-2.0); RBC 3.67 Mil/uL (3.80-5.20); RED CELL DISTRIBUTION WIDTH 14.2 % (11.5-14.5); WHITE BLOOD COUNT 2.5 K/uL (4.8-10.8)
[2017-04-22 09:00] LABS: ALB/GLOB RATIO 1.1 (1.0-2.1); ALBUMIN 3.6 g/dL (3.5-5.0); ALT/SGPT 53 U/L (9-52); AST/SGOT 65 U/L (14-36); BILIRUBIN,DIRECT 0.2 mg/dL (0.0-0.4); BLOOD UREA NITROGEN 19 mg/dL (7-17); CALCIUM 9.3 mg/dl (8.6-10.4); GFR AFRICAN-AMERICAN > 60; GFR NON-AFRICAN AMERICAN 54
[2017-04-22 09:19] LABS: HEPATITIS B SURFACE AG Negative (NEGATIVE)
[2017-04-22 09:25] LABS: HEPATITIS A IGM NEGATIVE (NEGATIVE); HEPATITIS B CORE AB NEGATIVE (NEGATIVE)
[2017-04-22 09:29] LABS: HEPATITIS C ANTIBODY NEGATIVE (NEGATIVE)
[2017-04-22 09:36] LABS: HEPATITIS C ANTIBODY NEGATIVE (NEGATIVE)
[2017-04-22] MEDS: Azithromycin 250 MG in Sodium Chloride 0.9% 250 ML IVPB SCH (09:57)
[2017-04-22] MEDS: Enoxaparin 40 mg Syringe SC SCH (09:58)
--- NOTE | 2017-04-22 11:02 | CARD ---
APPROVED REPORT EKG Measurement Heart [id number] MI [id number] <Conclusion> Normal sinus rhythm Normal ECG
[2017-04-22] MEDS: Cefepime IV 1 gm in Dextrose 1 GM/50 ML BAG IVPB SCH (11:03)
[2017-04-22 13:05] LABS: LEGIONELLA AG URINE NEGATIVE (NEGATIVE)
[2017-04-22 13:17] LABS: INFLUENZA A B NEGATIVE FOR FLU A/B (NEGATIVE)
--- NOTE | 2017-04-22 13:42 | CP.PCM.PN ---
Subjective - Date & Time of Evaluation Date of Evaluation: 04/22/17 Time of Evaluation: 13:42 - Subjective Subjective: AFEBRILE, SLEEPY TODAY. PATIENT ON ATIVAN. AROUSABLE. STATES COUGH IS LESS RN REPORTS PATIENT NEEDS SOMETHING FOR VAGINAL ITCHING/AND PRURITUS. S/P RT. MIDLINE INSERTION. LABS REVIEWED; wbc 2.2 H/H 10.2 PLATELETS 79. CREAT 0.9/BUN 10 LFTS IMPROVING. Objective - Vital Signs/Intake and Output Vital Signs (last 24 hours): Temp Pulse Resp BP Pulse Ox 97.9 F 85 20 171/98 H 96 04/22/17 07:35 04/22/17 07:35 04/22/17 07:35 04/22/17 07:35 04/22/17 07:35 Intake and Output: 04/22/17 04/22/17 06:59 18:59 Intake Total 750 Balance 750 - Medications Medications: Current Medications Clonidine HCl (Catapres) 0.1 mg PO BID [facility] Last Admin: 04/22/17 11:03 Dose: 0.1 mg Enoxaparin Sodium (Lovenox) 40 mg SC DAILY [facility] Last Admin: 04/22/17 09:58 Dose: 40 mg Ergocalciferol (Drisdol 50,000 Intl Units Cap) 1 cap PO QWK [facility] Famotidine (Pepcid) 20 mg PO DAILY [facility] Last Admin: 04/22/17 09:57 Dose: 20 mg Cefepime HCl (Maxipime Iv 1 Gm Premix) 1 gm in 50 mls @ 100 mls/hr IVPB DAILY [facility] Last Admin: 04/22/17 11:03 Dose: 100 mls/hr Azithromycin 250 mg/ Sodium (Chloride) 250 mls @ 250 mls/hr IVPB Q24H [facility] Last Admin: 04/22/17 09:57 Dose: 250 mls/hr Insulin Human Regular (Novolin R) 4 unit SC BID [facility] Last Admin: 04/22/17 10:05 Dose: 4 unit Insulin Human Regular (Novolin R) 0 unit SC ACHS [facility] PRN Reason: Protocol Last Admin: 04/22/17 12:08 Dose: Not Given Lorazepam (Ativan) 0.5 mg PO BID [facility] Last Admin: 04/22/17 09:57 Dose: 0.5 mg Oseltamivir Phosphate (Tamiflu Cap) 75 mg PO BID [facility] Stop: 04/25/17 18:01 Last Admin: 04/22/17 09:57 Dose: 75 mg Promethazine HCl/Dextromethorphan (Phenergan Dm Syrup) 5 ml PO Q6 [facility] Last Admin: 04/22/17 05:37 Dose: 5 ml Tacrolimus (Prograf Cap) 1 mg PO Q12 [facility] Last Admin: 04/22/17 09:58 Dose: 1 mg Temazepam (Restoril) 30 mg PO HS PRN PRN Reason: Insomnia Last Admin: 04/21/17 21:54 Dose: 30 mg - Labs Labs: 04/22/17 08:13 04/22/17 08:13 - Constitutional Appears: No Acute Distress - Head Exam Head Exam: NORMAL INSPECTION - Eye Exam Eye Exam: EOMI, PERRL - ENT Exam ENT Exam: Normal Oropharynx - Neck Exam Neck Exam: Normal Inspection - Respiratory Exam Respiratory Exam: Decreased Breath Sounds - Cardiovascular Exam Cardiovascular Exam: REGULAR RHYTHM, +S1, +S2 - GI/Abdominal Exam GI & Abdominal Exam: Soft, Normal Bowel Sounds (SCAR OF PREVIOUS SURGERY MIDABDOMEN UNDER THE DIAPHRAGM.) - Extremities Exam Extremities Exam: Normal Capillary Refill. absent: Calf Tenderness, Pedal Edema - Neurological Exam Neurological Exam: Alert, Awake, CN II-XII Intact, Oriented x3, Reflexes Normal - Psychiatric Exam Psychiatric exam: Normal Mood - Skin Skin Exam: Normal Color, Warm Assessment and Plan (1) Gram positive septicemia Assessment & Plan: BLOOD CULTURES REPEAT 04/19/2017 NEGATIVE GROWTH TO DATE. pREVIOUS BLOOD CULTURES STAPH COAGULASE NEGATIVE--PROBABLY CONTAMINANT dc iv VANCOMYCIN. Status: Acute (2) Influenza-like illness Assessment & Plan: PATIENT ON TAMIFLU 75 MG BY MOUTH TWICE A DAY 4 PROBABLE FLU CONTINUE ZITHROMAX 250 MG iv PIGGYBACK ONCE A DAY DAILY AWAITING PERTUSSIS SEROLOGY BECAUSE OF PROLONGED COUGH. DC IV CEFEPIME Status: Acute (3) Anxiety Status: Acute (4) Diabetes mellitus, insulin dependent (IDDM), uncontrolled Status: Acute (5) S/P liver transplant Assessment & Plan: lftS IMPROVING. wILL CONTINUE TO MONITOR lftS. HEPATITIS SCREEN NEGATIVE FOR A,B,C. PATIENT ON pROGRAF 1 MG BY MOUTH DAILY STATUS POST LIVER TRANSPLANT Status: Acute (6) Vaginitis due to Chrissy Assessment & Plan: Monistat suppository 1 at bedtime daily for 5 days to be inserted locally. Status: Acute
[2017-04-22] MEDS ORDERED: (Lantus) Insulin Glargine, Recombinant SC SCH (20:45)
--- NOTE | 2017-04-22 22:01 | CP.PCM.PN ---
Subjective - Date & Time of Evaluation Date of Evaluation: 04/22/17 Time of Evaluation: 09:00 - Subjective Subjective: hypoglycemia Objective - Vital Signs/Intake and Output Vital Signs (last 24 hours): Temp Pulse Resp BP Pulse Ox 97.7 F 78 20 134/76 97 04/22/17 16:06 04/22/17 18:58 04/22/17 16:06 04/22/17 18:58 04/22/17 16:06 Intake and Output: 04/22/17 04/23/17 18:59 06:59 Intake Total 730 Balance 730 - Medications Medications: Current Medications Clonidine HCl (Catapres) 0.1 mg PO BID [facility] Last Admin: 04/22/17 18:56 Dose: 0.1 mg Enoxaparin Sodium (Lovenox) 40 mg SC DAILY [facility] Last Admin: 04/22/17 09:58 Dose: 40 mg Ergocalciferol (Drisdol 50,000 Intl Units Cap) 1 cap PO QWK [facility] Famotidine (Pepcid) 20 mg PO DAILY [facility] Last Admin: 04/22/17 09:57 Dose: 20 mg Azithromycin 250 mg/ Sodium (Chloride) 250 mls @ 250 mls/hr IVPB Q24H [facility] Last Admin: 04/22/17 09:57 Dose: 250 mls/hr Insulin Human Isoph/Insulin Regular (Novolin 70/30 (70/30 Units/Ml) 10 Ml) 5 units SC Q12H [facility] Insulin Human Regular (Novolin R) 4 unit SC BID [facility] Last Admin: 04/22/17 18:56 Dose: 4 unit Insulin Human Regular (Novolin R) 0 unit SC ACHS [facility] PRN Reason: Protocol Last Admin: 04/22/17 18:56 Dose: 4 unit Lorazepam (Ativan) 0.5 mg PO BID [facility] Last Admin: 04/22/17 18:56 Dose: 0.5 mg Miconazole (Monistat 3) 200 mg VAG HS [facility] Stop: 04/24/17 23:00 Oseltamivir Phosphate (Tamiflu Cap) 75 mg PO BID [facility] Stop: 04/25/17 18:01 Last Admin: 04/22/17 18:56 Dose: 75 mg Promethazine HCl/Dextromethorphan (Phenergan Dm Syrup) 5 ml PO Q6 [facility] Last Admin: 04/22/17 18:56 Dose: 5 ml Tacrolimus (Prograf Cap) 1 mg PO Q12 [facility] Last Admin: 04/22/17 09:58 Dose: 1 mg Temazepam (Restoril) 30 mg PO HS PRN PRN Reason: Insomnia Last Admin: 04/21/17 21:54 Dose: 30 mg - Labs Labs: 04/22/17 08:13 04/22/17 08:13 Assessment and Plan (1) Hypoglycemia due to insulin Assessment & Plan: Assessment and Plan: Endocrine consult f/u reason for consult: hypoglycemia /uncontrolled diabetes Source: patient & chart review Ms. Mckenna is 77 y/o admitted for flu like symtoms , on immunosupressive thyrapy for liver trasplant , on antibiotics as per pt. has DM x 30 years (-) neuropathy , (-) retinopathy , (-) nephropathy (-) CAD (-) PVD outpatient diabetes management regimen : NPH 10 units bid & humalog 6 units tid inpatient diabetes management regimen: NPH 10 units bid , Novolog 6 units tid blood glucose log : today 200-400 , one 140 no hypoglycemia Allergy NKDA Past medical history: hep c Past surgical history: s/p liver trasplant & CS Psychiatry history: (+) psychiatry disorder Social history : denies smoking , ETOH use or illicit drug use Family history : father with diabetes ROS: Constitutional: denies fever,(+) tiredness/weakness. HEENT: denies earache, change in voice .Respiratory: (+) cough, sob . CVS :no chest pain, no palpitations . Abdomen: no abdominal pain, no nausea /vomiting, no change bowel movement. 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 Extremities: no edema, no tremors. Skin: no itching, no rash Physical exam Well-developed AAO x3 , ,NAD VSS HEENT: norm cephalic, atraumatic, no lid lag , no exophthalmos NECK: supple, no palpable lymphadenopathy THYROID: no palpable thyromegaly, not tender CHEST: fair air entry, bilateral, CVS: S1,S2 ABDOMEN: bowel sound present, benign, obese, no wide purple striae , no bruises EXTREMITIES: no edema, clubbing or cyanosis, no palpable hand tremors Skin: acanthosis nigricans lab: a1c 8.3 , TSH 3.80 03/2017 cr 1.1, urine 3+ glucose 10/2016 tsh 2.90 , a1c 8.9 Assessment sever symptomatic hypoglycemia , resolved uncontrolled IDDM flu like symtoms s/p liver trasplant on immunosuppressive therpay plan resume NPH 5 units bid continue Novoloin R low dose coverage, no 3 am coverage continue novoloin R 4 units tid with meals if eat > 60% we will follow with you. Status: Acute (2) Diabetes mellitus, insulin dependent (IDDM), uncontrolled Status: Acute (3) Influenza-like illness Status: Acute (4) S/P liver transplant Status: Acute
[2017-04-22] MEDS: (Novolin 70/30) NPH/Regular 70/30 Units/ml 10 ml vial SC SCH (22:08)
--- NOTE | 2017-04-22 23:42 | CP.PCM.PN ---
Subjective - Date & Time of Evaluation Date of Evaluation: 04/22/17 Time of Evaluation: 18:50 - Subjective Subjective: Pt seen and examined, is delusional and confused, denies any fever, chills, nausea/ vomittting, blood sugar derranged added lantus subcutaneously in medicine regimen Objective - Vital Signs/Intake and Output Vital Signs (last 24 hours): Temp Pulse Resp BP Pulse Ox 97.7 F 78 20 134/76 97 04/22/17 16:06 04/22/17 18:58 04/22/17 16:06 04/22/17 18:58 04/22/17 16:06 Intake and Output: 04/22/17 04/23/17 18:59 06:59 Intake Total 730 500 Balance 730 500 - Medications Medications: Current Medications Clonidine HCl (Catapres) 0.1 mg PO BID [facility] Last Admin: 04/22/17 18:56 Dose: 0.1 mg Enoxaparin Sodium (Lovenox) 40 mg SC DAILY [facility] Last Admin: 04/22/17 09:58 Dose: 40 mg Ergocalciferol (Drisdol 50,000 Intl Units Cap) 1 cap PO QWK [facility] Famotidine (Pepcid) 20 mg PO DAILY [facility] Last Admin: 04/22/17 09:57 Dose: 20 mg Azithromycin 250 mg/ Sodium (Chloride) 250 mls @ 250 mls/hr IVPB Q24H [facility] Last Admin: 04/22/17 09:57 Dose: 250 mls/hr Insulin Human Isoph/Insulin Regular (Novolin 70/30 (70/30 Units/Ml) 10 Ml) 5 units SC Q12H [facility] Last Admin: 04/22/17 22:08 Dose: 5 units Insulin Human Regular (Novolin R) 4 unit SC BID [facility] Last Admin: 04/22/17 18:56 Dose: 4 unit Insulin Human Regular (Novolin R) 0 unit SC ACHS [facility] PRN Reason: Protocol Last Admin: 04/22/17 22:03 Dose: 3 unit Lorazepam (Ativan) 0.5 mg PO BID [facility] Last Admin: 04/22/17 18:56 Dose: 0.5 mg Miconazole (Monistat 3) 200 mg VAG HS [facility] Stop: 04/24/17 23:00 Last Admin: 04/22/17 22:04 Dose: 200 mg Oseltamivir Phosphate (Tamiflu Cap) 75 mg PO BID [facility] Stop: 04/25/17 18:01 Last Admin: 04/22/17 18:56 Dose: 75 mg Promethazine HCl/Dextromethorphan (Phenergan Dm Syrup) 5 ml PO Q6 [facility] Last Admin: 04/22/17 18:56 Dose: 5 ml Tacrolimus (Prograf Cap) 1 mg PO Q12 [facility] Last Admin: 04/22/17 22:02 Dose: 1 mg Temazepam (Restoril) 30 mg PO HS PRN PRN Reason: Insomnia Last Admin: 04/22/17 22:00 Dose: 30 mg - Labs Labs: 04/22/17 08:13 04/22/17 08:13 - Constitutional Appears: No Acute Distress, Chronically Ill - Head Exam Head Exam: ATRAUMATIC, NORMAL INSPECTION, NORMOCEPHALIC - Eye Exam Eye Exam: EOMI, Normal appearance, PERRL Pupil Exam: NORMAL ACCOMODATION, PERRL - Respiratory Exam Respiratory Exam: Decreased Breath Sounds, Rales - Cardiovascular Exam Cardiovascular Exam: REGULAR RHYTHM, +S1, +S2. absent: Murmur - GI/Abdominal Exam GI & Abdominal Exam: Soft, Normal Bowel Sounds. 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
[2017-04-23] MEDS: Promethazine DM 6.25 mg-15 mg/5 ml Syrup PO SCH ×4 (00:34→17:33)
[2017-04-23 07:33] LABS: HEMOGLOBIN 10.2 g/dL (11.0-16.0); MEAN CELL VOLUME 88.6 fL (81.0-99.0); MEAN CORPUSCULAR HEMOGLOBIN 31.1 pg (27.0-31.0); MEAN CORPUSCULAR HGB CONC 35.1 g/dL (33.0-37.0); MEAN PLATELET VOLUME 9.1 fL (7.2-11.7); RBC 3.29 Mil/uL (3.80-5.20); RED CELL DISTRIBUTION WIDTH 14.5 % (11.5-14.5); WHITE BLOOD COUNT 2.2 K/uL (4.8-10.8)
[2017-04-23 07:39] LABS: ALB/GLOB RATIO 1.1 (1.0-2.1); ALBUMIN 3.2 g/dL (3.5-5.0); ALT/SGPT 48 U/L (9-52); AST/SGOT 56 U/L (14-36); BLOOD UREA NITROGEN 19 mg/dL (7-17); CALCIUM 8.6 mg/dl (8.6-10.4); GFR AFRICAN-AMERICAN > 60; GFR NON-AFRICAN AMERICAN > 60
[2017-04-23] MEDS: (Novolin R) Insulin Human Regular 100 units/ml vial SC SCH ×6 (08:35→22:15)
[2017-04-23] MEDS: Enoxaparin 40 mg Syringe SC SCH (12:24)
[2017-04-23] MEDS: Azithromycin 250 MG in Sodium Chloride 0.9% 250 ML IVPB SCH (12:24)
--- NOTE | 2017-04-23 12:30 | PCM.PSYCH ---
Initial Psychiatric Evaluation - Initial Psychiatric Evaluation Type of Admission: Voluntary Legal Status: Capacity Chief Complaint (in patient's own words): "Not well" History of Present Illness and Precipitating Events: The patient is seen chart reviewed and case discussed This is a 77-year-old female, , has 2 daughters, lives alone and has a "homemaker" who comes 3 hours a day. The patient is here for respiratory problems but psych was consulted because of her psychiatric history. The patient admits that she is still bothered by her upstairs neighbors. She believes that they are engaged in drug use and they send drugs to her apartment through the wooden floors and her ceiling, in liquid form. She states that she wears clothes to prevent the dripping and she says she hears them and she sees them. She believes they are doing this deliberately to bother her. However, she feels she is okay in other places i.e. outside or here in the hospital. She couldn't explain why they would try to bother her She also reports some anxiety and low mood but denies suicidal/homicidal thoughts. Her memory is a little bit impaired but she doesn't seem to have dementia or delirium. The patient consented the business writer to speak to her daughter who was listed in the medical record. Her daughter reported that she had gotten the patient admitted to [facility] last year for 2 weeks with similar problems. Back then the patient had been calling the police almost daily about the upstairs neighbors and the building custodial supervisor was very upset. Currently, she states, the patient still calls but less often. She may be evicted bc of that. She also added that the patient refused to take any medications or see a psychiatrist on the outside. Also, dementia was considered but was not confirmed as the patient had "good memory." Her daughter said that this problem started in her 60s and escalated the last few years. In her younger ages she did not have any psychiatric problems and she does no drugs or alcohol. 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, respiratory problems Family psych history: Unknown Current Medications: Active Medications Generic Name Dose Route Start Last Admin Trade Name Freq PRN Reason Stop Dose Admin Clonidine HCl 0.1 mg 04/19/17 10:00 04/22/17 18:56 Catapres PO 0.1 mg BID MANJU Administration Enoxaparin Sodium 40 mg 04/19/17 10:00 04/22/17 09:58 Lovenox SC 40 mg DAILY MANJU Administration Ergocalciferol 1 cap 04/25/17 10:00 Drisdol 50,000 Intl Units Cap PO QWK MANJU Famotidine 20 mg 04/19/17 10:00 04/22/17 09:57 Pepcid PO 20 mg DAILY MANJU Administration Azithromycin 250 mg/ Sodium 250 mls @ 250 mls/hr 04/22/17 10:30 04/22/17 09: 57 Chloride IVPB 250 mls/hr Q24H MANJU Administration Insulin Human Isoph/Insulin Regular 5 units 04/22/17 22:00 04/22/17 22:08 Novolin 70/30 (70/30 Units/Ml) 10 Ml SC 5 units Q12H MANJU Administration Insulin Human Regular 4 unit 04/21/17 18:00 04/22/17 18:56 Novolin R SC 4 unit BID MANJU Administration Insulin Human Regular 0 unit 04/21/17 13:27 04/22/17 22:03 Novolin R SC 3 unit ACHS MANJU Administration Protocol Lorazepam 0.5 mg 04/18/17 23:00 04/22/17 18:56 Ativan PO 0.5 mg BID MANJU Administration Miconazole 200 mg 04/22/17 22:00 04/22/17 22:04 Monistat 3 VAG 04/24/17 23:00 200 mg HS MANJU Administration Oseltamivir Phosphate 75 mg 04/20/17 18:00 04/22/17 18:56 Tamiflu Cap PO 04/25/17 18:01 75 mg BID MANJU Administration Promethazine HCl/Dextromethorphan 5 ml 04/21/17 19:30 04/23/17 05:26 Phenergan Dm Syrup PO 5 ml Q6 MANJU Administration Tacrolimus 1 mg 04/22/17 10:00 04/22/17 22:02 Prograf Cap PO 1 mg Q12 MANJU Administration Temazepam 30 mg 04/18/17 22:55 04/22/17 22:00 Restoril PO 30 mg HS PRN Administration Insomnia Past Psychiatric History - Past Psychiatric History Previous Treatment History: Inpatient Pertinent Medical Hx (Current Medical&Sleep Prob, Allergies): Allergies Allergy/AdvReac Type Severity Reaction Status Date / Time No Known Allergies Allergy Verified 04/18/17 15:04 Cholecalciferol [Vitamin D 1000 IU] 1,000 iu PO DAILY 01/29/17 Insulin Human NPH [Humulin N] 10 units SQ AMHS 01/29/17 Insulin Lispro [Humalog (Insulin Lispro)] 6 units SQ ACTID 01/29/17 Lorazepam [Ativan] 0.5 mg PO DAILY 01/29/17 Pepcid 20 mg PO DAILY 01/29/17 cloNIDine [Catapres] 0.1 mg PO DAILY 01/29/17 Temazepam [Restoril] 30 mg PO HS PRN #30 cap 02/04/17 Review of Systems - Neurological Neurological: Memory Loss - Psychiatric Psychiatric: Abnormal Sleep Pattern, Anxiety, Difficulty Concentrating, Hallucinations, Irritability, Memory Loss, Paranoia. absent: Homicidal Ideation , Suicidal Ideation Mental Status Examination - Personal Presentation Personal Presentation: Looks stated age - Affect Affect: Constricted - Motor Activity Motor Activity: Calm - Reliability in Providing Information Reliability in Providing Information: Poor, due to alteration in thoughts - Speech Speech: Organized - Mood Mood: Anxious - Formal Thought Process Formal Thought Process: Hallucinations, Delusions, Paranoia - Hallucinations/Delusions Hallucinations: Visual, Auditory - Cognitive Functions Orientation: Person, Place, Situation, Time Sensorium: Alert Attention/Concentration: Attentive Estimate of Intelligence: Average Judgement: Imparied, as evidence by: Poor judgement Memory: Recent impaired, as evidenced by: Other (1/3 in 5 minutes), Remote impaired as evidenced by: Inability to recall sig life events - Risk Risk: Diminished functioning - Strength & Assets Inventory Strength & Assets Inventory: Family support, Cooperative DSM 5 DX - DSM 5 DSM 5 Diagnosis: Delusional disorder r/o psychosis due to a general medical condition Anxiety d/o - Recommended/Plan of Treatment Treatment Recommendations and Plan of Treatment: Abilify 2 mg for psychotic symptoms Decrease Restoril to 15 mg at bedtime due to her age Continue Ativan 0.5 twice a day for now but that needs to be tapered off as well in the future, again due to her age and risk of falls and memory problems Support and psychoeducation The patient's daughter may need to get guardianship or power of estate planning attorney as the pt will likely need skilled nursing placement to avoid being evicted from her home Consider [facility] admission too [facility]. It is voluntary and the business writer will d/w the pt.
[2017-04-23] MEDS: (Novolin 70/30) NPH/Regular 70/30 Units/ml 10 ml vial SC SCH ×2 (12:34→22:25)
--- NOTE | 2017-04-23 15:08 | CP.PCM.PN ---
Subjective - Date & Time of Evaluation Date of Evaluation: 04/23/17 Time of Evaluation: 15:03 - Subjective Subjective: hypoglycemia & uncontrolled iddm Objective - Vital Signs/Intake and Output Vital Signs (last 24 hours): Temp Pulse Resp BP Pulse Ox 97.9 F 70 20 143/80 99 04/23/17 07:40 04/23/17 07:40 04/23/17 07:40 04/23/17 07:40 04/23/17 07:40 Intake and Output: 04/23/17 04/23/17 06:59 18:59 Intake Total 500 Balance 500 - Medications Medications: Current Medications Aripiprazole (Abilify) 2 mg PO DAILY [facility] Clonidine HCl (Catapres) 0.1 mg PO BID [facility] Last Admin: 04/23/17 12:23 Dose: 0.1 mg Enoxaparin Sodium (Lovenox) 40 mg SC DAILY [facility] Last Admin: 04/23/17 12:24 Dose: 40 mg Ergocalciferol (Drisdol 50,000 Intl Units Cap) 1 cap PO QWK [facility] Famotidine (Pepcid) 20 mg PO DAILY [facility] Last Admin: 04/23/17 12:38 Dose: Not Given Azithromycin 250 mg/ Sodium (Chloride) 250 mls @ 250 mls/hr IVPB Q24H [facility] Last Admin: 04/23/17 12:24 Dose: 250 mls/hr Insulin Human Isoph/Insulin Regular (Novolin 70/30 (70/30 Units/Ml) 10 Ml) 5 units SC Q12H [facility] Last Admin: 04/23/17 12:34 Dose: 5 units Insulin Human Regular (Novolin R) 4 unit SC BID [facility] Last Admin: 04/23/17 12:35 Dose: 4 unit Insulin Human Regular (Novolin R) 0 unit SC ACHS [facility] PRN Reason: Protocol Last Admin: 04/23/17 12:37 Dose: 6 unit Lorazepam (Ativan) 0.5 mg PO BID [facility] Last Admin: 04/23/17 12:23 Dose: 0.5 mg Miconazole (Monistat 3) 200 mg VAG HS [facility] Stop: 04/24/17 23:00 Last Admin: 04/22/17 22:04 Dose: 200 mg Oseltamivir Phosphate (Tamiflu Cap) 75 mg PO BID [facility] Stop: 02/03/18 18:01 Last Admin: 04/23/17 12:23 Dose: 75 mg Promethazine HCl/Dextromethorphan (Phenergan Dm Syrup) 5 ml PO Q6 [facility] Last Admin: 04/23/17 12:38 Dose: Not Given Tacrolimus (Prograf Cap) 1 mg PO Q12 [facility] Last Admin: 04/23/17 12:23 Dose: 1 mg Temazepam (Restoril) 15 mg PO HS PRN PRN Reason: Insomnia - Labs Labs: 04/23/17 07:04 04/23/17 07:04 Assessment and Plan (1) Hypoglycemia due to insulin Assessment & Plan: Endocrine consult f/u reason for consult: hypoglycemia /uncontrolled diabetes Source: patient & chart review Ms. Mckenna is 77 y/o admitted for flu like symtoms , on immunosupressive thyrapy for liver trasplant , on antibiotics as per pt. has DM x 30 years (-) neuropathy , (-) retinopathy , (-) nephropathy (-) CAD (-) PVD outpatient diabetes management regimen : NPH 10 units bid & humalog 6 units tid inpatient diabetes management regimen: NPH 10 units bid , Novolog 6 units tid blood glucose log : today 8am 400 & last on record 200-400 last glucose 91 no hypoglycemia Allergy NKDA Past medical history: hep c Past surgical history: s/p liver trasplant & CS Psychiatry history: (+) psychiatry disorder Social history : denies smoking , ETOH use or illicit drug use Family history : father with diabetes ROS: Constitutional: denies fever,(+) tiredness/weakness. HEENT: denies earache, change in voice .Respiratory: (+) cough, sob . CVS :no chest pain, no palpitations . Abdomen: no abdominal pain, no nausea /vomiting, no change bowel movement. [employer] : denies light-headedness, dizziness. Extremities: no edema, no tremors. Skin: no itching, no rash Physical exam Well-developed AAO x3 , ,NAD VSS HEENT: norm cephalic, atraumatic, no lid lag , no exophthalmos NECK: supple, no palpable lymphadenopathy THYROID: no palpable thyromegaly, not tender CHEST: fair air entry, bilateral, CVS: S1,S2 ABDOMEN: bowel sound present, benign, obese, no wide purple striae , no bruises EXTREMITIES: no edema, clubbing or cyanosis, no palpable hand tremors Skin: acanthosis nigricans lab: a1c 8.3 , TSH 3.80 03/2017 cr 1.1, urine 3+ glucose 10/2016 tsh 2.90 , a1c 8.9 Assessment sever symptomatic hypoglycemia , resolved uncontrolled IDDM flu like symtoms s/p liver trasplant on immunosuppressive therpay plan continue NPH 5 units bid continue Novoloin R low dose coverage, no 3 am coverage continue novoloin R 4 units tid with meals if eat > 60% obtain glucose now /ac dinner nurse to contact endocrine for glucose above 400 & less than 100 we will follow with you. Status: Acute (2) Diabetes mellitus, insulin dependent (IDDM), uncontrolled Status: Acute (3) Influenza-like illness Status: Acute (4) S/P liver transplant Status: Acute
--- NOTE | 2017-04-23 17:11 | RAD ---
HISTORY: pneumonia hx liver transplant. COMPARISON: 04/18/2017 at 1533 hours TECHNIQUE: PA and lateral FINDINGS: LUNGS: . Overall interstitial markings slightly increased yet similar interval left inferolateral pleural thickening reaction Contiguous minimal infiltrate here possible PLEURA: No significant pleural effusion identified. No pneumothorax apparent. CARDIOVASCULAR: Heart size top normal. Tortuous and ectatic thoracic aorta. Dense calcification mitral annulus OSSEOUS STRUCTURES: Bilateral shoulder arthrosis left lateral old rib fractures healed VISUALIZED UPPER ABDOMEN: Surgical clips paracentral abdomen OTHER FINDINGS: None. IMPRESSION: Interval left inferolateral pleural thickening. Contiguous minimal infiltrate here possible
[2017-04-23] MEDS: Sodium Chloride 0.9% 1,000 ML IV SCH (22:16)
--- NOTE | 2017-04-23 22:26 | CP.PCM.PN ---
Subjective - Date & Time of Evaluation Date of Evaluation: 04/23/17 Time of Evaluation: 22:26 - Subjective Subjective: AFEBRILE, PATIENT ON ATIVAN. AROUSABLE. STATES COUGH IS LESS. MORE COMFORTABLE Objective - Vital Signs/Intake and Output Vital Signs (last 24 hours): Temp Pulse Resp BP Pulse Ox 97.0 F L 69 20 129/73 95 04/23/17 16:00 04/23/17 16:00 04/23/17 16:00 04/23/17 16:00 04/23/17 16:00 Intake and Output: 04/23/17 04/24/17 18:59 06:59 Intake Total 700 Balance 700 - Medications Medications: Current Medications Aripiprazole (Abilify) 2 mg PO DAILY [facility] Last Admin: 04/23/17 17:31 Dose: 2 mg Clonidine HCl (Catapres) 0.1 mg PO BID [facility] Last Admin: 04/23/17 17:32 Dose: 0.1 mg Enoxaparin Sodium (Lovenox) 40 mg SC DAILY [facility] Last Admin: 04/23/17 12:24 Dose: 40 mg Ergocalciferol (Drisdol 50,000 Intl Units Cap) 1 cap PO QWK [facility] Famotidine (Pepcid) 20 mg PO DAILY [facility] Last Admin: 04/23/17 12:38 Dose: Not Given Azithromycin 250 mg/ Sodium (Chloride) 250 mls @ 250 mls/hr IVPB Q24H [facility] Last Admin: 04/23/17 12:24 Dose: 250 mls/hr Sodium Chloride (Sodium Chloride 0.9%) 1,000 mls @ 50 mls/hr IV .Q20H [facility] Stop: 04/24/17 22:00 Last Admin: 04/23/17 22:16 Dose: Not Given Insulin Human Isoph/Insulin Regular (Novolin 70/30 (70/30 Units/Ml) 10 Ml) 5 units SC Q12H [facility] Last Admin: 04/23/17 22:25 Dose: Not Given Insulin Human Regular (Novolin R) 0 unit SC ACHS [facility] PRN Reason: Protocol Last Admin: 04/23/17 22:15 Dose: Not Given Insulin Human Regular (Novolin R) 6 unit SC TIDPC [facility] Last Admin: 04/23/17 17:32 Dose: 6 unit Lorazepam (Ativan) 0.5 mg PO BID [facility] Last Admin: 04/23/17 17:31 Dose: 0.5 mg Miconazole (Monistat 3) 200 mg VAG HS [facility] Stop: 04/24/17 23:00 Last Admin: 04/23/17 22:15 Dose: 200 mg Oseltamivir Phosphate (Tamiflu Cap) 75 mg PO BID [facility] Stop: 04/25/17 18:01 Last Admin: 04/23/17 17:33 Dose: 75 mg Promethazine HCl/Dextromethorphan (Phenergan Dm Syrup) 5 ml PO Q6 [facility] Last Admin: 04/23/17 17:33 Dose: 5 ml Tacrolimus (Prograf Cap) 1 mg PO Q12 [facility] Last Admin: 04/23/17 12:23 Dose: 1 mg Temazepam (Restoril) 15 mg PO HS PRN PRN Reason: Insomnia - Labs Labs: 04/23/17 07:04 04/23/17 07:04 - Constitutional Appears: No Acute Distress, Cachectic, Chronically Ill - Head Exam Head Exam: NORMAL INSPECTION - Eye Exam Eye Exam: EOMI, PERRL - ENT Exam ENT Exam: Normal Oropharynx - Neck Exam Neck Exam: Normal Inspection - Respiratory Exam Respiratory Exam: Clear to Ausculation Bilateral. absent: Wheezes - Cardiovascular Exam Cardiovascular Exam: REGULAR RHYTHM, +S1, +S2 - Rectal Exam Rectal Exam: Black Stool - Exam Exam: absent: NORMAL INSPECTION - Extremities Exam Extremities Exam: absent: Calf Tenderness, Pedal Edema - Neurological Exam Neurological Exam: Alert, Awake, CN II-XII Intact, Oriented x3 - Psychiatric Exam Psychiatric exam: Normal Mood - Skin Skin Exam: Normal Color, Warm Assessment and Plan (1) Gram positive septicemia Assessment & Plan: REPEAT BLOOD CULTURES NEGATIVE GROWTH. sTAPH COAGULASE-NEGATIVE CULTURE PROBABLY CONTAMINANT. Status: Acute (2) Influenza-like illness Assessment & Plan: PATIENT ON TAMIFLU 75 MG BY MOUTH TWICE A DAY 4 PROBABLE FLU 04/20/17- DAY 4 [id number] CONTINUE ZITHROMAX 250 MG iv PIGGYBACK ONCE A DAY DAILY AWAITING PERTUSSIS SEROLOGY BECAUSE OF PROLONGED COUGH. Status: Acute (3) Anxiety Status: Acute (4) Diabetes mellitus, insulin dependent (IDDM), uncontrolled Status: Acute (5) S/P liver transplant Assessment & Plan: LFTS IMPROVING Status: Acute (6) Vaginitis due to Chrissy Assessment & Plan: MONISTAT SUPPOSITORY HS DAILY X 5 DAYS. Status: Acute
--- NOTE | 2017-04-23 22:42 | CP.PCM.PN ---
Subjective - Date & Time of Evaluation Date of Evaluation: 04/23/17 Time of Evaluation: 19:40 - Subjective Subjective: Pt seen and evaluated blood sugars are high today,also seen by outreach consultant insulin dosages are adjusted Objective - Vital Signs/Intake and Output Vital Signs (last 24 hours): Temp Pulse Resp BP Pulse Ox 97.0 F L 69 20 129/73 95 04/23/17 16:00 04/23/17 16:00 04/23/17 16:00 04/23/17 16:00 04/23/17 16:00 Intake and Output: 04/23/17 04/24/17 18:59 06:59 Intake Total 700 Balance 700 - Medications Medications: Current Medications Aripiprazole (Abilify) 2 mg PO DAILY [facility] Last Admin: 04/23/17 17:31 Dose: 2 mg Clonidine HCl (Catapres) 0.1 mg PO BID [facility] Last Admin: 04/23/17 17:32 Dose: 0.1 mg Enoxaparin Sodium (Lovenox) 40 mg SC DAILY [facility] Last Admin: 04/23/17 12:24 Dose: 40 mg Ergocalciferol (Drisdol 50,000 Intl Units Cap) 1 cap PO QWK [facility] Famotidine (Pepcid) 20 mg PO DAILY [facility] Last Admin: 04/23/17 12:38 Dose: Not Given Azithromycin 250 mg/ Sodium (Chloride) 250 mls @ 250 mls/hr IVPB Q24H [facility] Last Admin: 04/23/17 12:24 Dose: 250 mls/hr Sodium Chloride (Sodium Chloride 0.9%) 1,000 mls @ 50 mls/hr IV .Q20H [facility] Stop: 04/24/17 22:00 Last Admin: 04/23/17 22:16 Dose: Not Given Insulin Human Isoph/Insulin Regular (Novolin 70/30 (70/30 Units/Ml) 10 Ml) 5 units SC Q12H [facility] Last Admin: 04/23/17 22:25 Dose: Not Given Insulin Human Regular (Novolin R) 0 unit SC ACHS [facility] PRN Reason: Protocol Last Admin: 04/23/17 22:15 Dose: Not Given Insulin Human Regular (Novolin R) 6 unit SC TIDPC [facility] Last Admin: 04/23/17 17:32 Dose: 6 unit Lorazepam (Ativan) 0.5 mg PO BID [facility] Last Admin: 04/23/17 17:31 Dose: 0.5 mg Miconazole (Monistat 3) 200 mg VAG HS [facility] Stop: 04/24/17 23:00 Last Admin: 04/23/17 22:15 Dose: 200 mg Oseltamivir Phosphate (Tamiflu Cap) 75 mg PO BID [facility] Stop: 04/25/17 18:01 Last Admin: 04/23/17 17:33 Dose: 75 mg Promethazine HCl/Dextromethorphan (Phenergan Dm Syrup) 5 ml PO Q6 [facility] Last Admin: 04/23/17 17:33 Dose: 5 ml Tacrolimus (Prograf Cap) 1 mg PO Q12 [facility] Last Admin: 04/23/17 22:32 Dose: 1 mg Temazepam (Restoril) 15 mg PO HS PRN PRN Reason: Insomnia - Labs Labs: 04/23/17 07:04 04/23/17 07:04 - Constitutional Appears: No Acute Distress - Head Exam Head Exam: ATRAUMATIC, NORMAL INSPECTION, NORMOCEPHALIC - Eye Exam Eye Exam: EOMI, Normal appearance, PERRL Pupil Exam: NORMAL ACCOMODATION, PERRL - Neck Exam Neck Exam: Full ROM, Normal Inspection. absent: Lymphadenopathy - Respiratory Exam Respiratory Exam: Clear to Ausculation Bilateral, NORMAL BREATHING PATTERN - Cardiovascular Exam Cardiovascular Exam: REGULAR RHYTHM, +S1, +S2. absent: Murmur - GI/Abdominal Exam GI & Abdominal Exam: Soft, Normal Bowel Sounds. 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
[2017-04-24] MEDS: Promethazine DM 6.25 mg-15 mg/5 ml Syrup PO SCH ×4 (00:03→17:21)
[2017-04-24 08:07] LABS: ALB/GLOB RATIO 1.1 (1.0-2.1); ALBUMIN 3.6 g/dL (3.5-5.0)
[2017-04-24] MEDS: (Novolin R) Insulin Human Regular 100 units/ml vial SC SCH ×8 (08:08→21:25)
[2017-04-24 08:14] LABS: BASO % 0.5 % (0.0-2.0); EOS # 0.2 K/uL (0.0-0.7); EOS % 3.6 % (0.0-4.0); HEMOGLOBIN 11.3 g/dL (11.0-16.0); LYMPH # 1.3 K/uL (1.0-4.3); LYMPH % 20.1 % (20.0-40.0); MEAN CORPUSCULAR HEMOGLOBIN 30.3 pg (27.0-31.0); MEAN CORPUSCULAR HGB CONC 33.3 g/dL (33.0-37.0); MEAN PLATELET VOLUME 9.3 fL (7.2-11.7); MONO # 0.3 K/uL (0.0-0.8); MONO % 4.5 % (0.0-10.0); NEUT # 4.8 K/uL (1.8-7.0); NEUT % 71.3 % (50.0-75.0); RBC 3.73 Mil/uL (3.80-5.20); RED CELL DISTRIBUTION WIDTH 14.3 % (11.5-14.5)
[2017-04-24 08:17] LABS: MEAN CELL VOLUME 90.8 fL (81.0-99.0); WHITE BLOOD COUNT 6.7 K/uL (4.8-10.8)
[2017-04-24] MEDS: Enoxaparin 40 mg Syringe SC SCH (09:51)
[2017-04-24] MEDS ORDERED: (Novolin 70/30) NPH/Regular 70/30 Units/ml 10 ml vial SC ONE (10:00)
--- NOTE | 2017-04-24 12:28 | PCM.PYCHPN ---
Psychiatric Progress Note - Psychiatric Progress Note Patient seen today, length of contact: 16 min Patient Chief Complaint: "I couldn't sleep well" Problems Identified/Issues Discussed: She is seen and chart reviewed She is still delusional about her neighbors but feels "safe" here She agreed to be admitted to [facility] in [facility] but she wants her daughter to look for another apartment while she is here and there. Support and psychoed given Add Trazodone for sleep Medication Change: Yes Medical Record Reviewed: Yes Mental Status Examination - Cognitive Function Orientation: Person, Place, Situation, Time Memory: Impaired Attention: WNL Concentration: Poor Association: WNL Fund of Knowledge: Poor - Mood Mood: Anxious - Affect Affect: Constricted - Speech Speech: Appropriate - Formal Thought Process Formal Thought Process: Hallucinations, Delusions, Paranoia - Suicidal Ideation Suicidal Ideation: No - Homicidal Ideation Homicidal Ideation: No Goal/Treatment Plan - Goal/Treatment Plan Need for Continued Stay: Severe functional impairment, Other (medical) Progress Toward Problem(s) and Goals/Treatment Plan: Abilify 2 mg for psychotic symptoms Decrease Restoril to 15 mg at bedtime due to her age Add low dose trazodone Continue Ativan 0.5 twice a day for now but that needs to be tapered off as well in the future, again due to her age and risk of falls and memory problems Support and psychoeducation The patient's daughter may need to get guardianship or power of patent attorney as the pt will likely need penitentiary placement to avoid being evicted from her home Consider [facility] admission too in [facility]. It is voluntary and she needs to sign a consent
--- NOTE | 2017-04-24 12:47 | CP.PCM.PN ---
Subjective - Date & Time of Evaluation Date of Evaluation: 04/24/17 Time of Evaluation: 12:47 - Subjective Subjective: AFEBRILE, aWAKE AND ALERT, C/O DIZZINESS ON WAKING UP. WALKED TO THE BATHROOM FOR THE FIRST TIME. LESS COUGH. lABS; STOOL C. DIFFICILE REPORTED POSITIVE. wbc 6.7 IMPROVED LEUKOPENIA pLATELETS 110 IMPROVED. Objective - Vital Signs/Intake and Output Vital Signs (last 24 hours): Temp Pulse Resp BP Pulse Ox 97.7 F 89 20 101/59 L 96 04/24/17 07:45 04/24/17 07:45 04/24/17 07:45 04/24/17 07:45 04/24/17 07:45 Intake and Output: 04/24/17 04/24/17 06:59 18:59 Intake Total 200 Balance 200 - Medications Medications: Current Medications Aripiprazole (Abilify) 2 mg PO DAILY [facility] Last Admin: 04/24/17 10:01 Dose: 2 mg Clonidine HCl (Catapres) 0.1 mg PO BID [facility] Last Admin: 04/24/17 09:52 Dose: 0.1 mg Enoxaparin Sodium (Lovenox) 40 mg SC DAILY [facility] Last Admin: 04/24/17 09:51 Dose: 40 mg Ergocalciferol (Drisdol 50,000 Intl Units Cap) 1 cap PO QWK [facility] Famotidine (Pepcid) 20 mg PO DAILY [facility] Last Admin: 04/24/17 09:52 Dose: 20 mg Sodium Chloride (Sodium Chloride 0.9%) 1,000 mls @ 50 mls/hr IV .Q20H [facility] Stop: 04/24/17 22:00 Last Admin: 04/23/17 22:16 Dose: Not Given Insulin Human Isoph/Insulin Regular (Novolin 70/30 (70/30 Units/Ml) 10 Ml) 5 units SC Q12H [facility] Insulin Human Regular (Novolin R) 0 unit SC ACHS [facility] PRN Reason: Protocol Last Admin: 04/24/17 11:44 Dose: Not Given Insulin Human Regular (Novolin R) 6 unit SC TIDPC [facility] Last Admin: 04/24/17 09:05 Dose: 6 unit Lorazepam (Ativan) 0.5 mg PO BID [facility] Last Admin: 04/24/17 10:01 Dose: 0.5 mg Miconazole (Monistat 3) 200 mg VAG HS [facility] Stop: 04/24/17 23:00 Last Admin: 04/23/17 22:15 Dose: 200 mg Oseltamivir Phosphate (Tamiflu Cap) 75 mg PO BID [facility] Stop: 04/25/17 18:01 Last Admin: 04/24/17 09:52 Dose: 75 mg Promethazine HCl/Dextromethorphan (Phenergan Dm Syrup) 5 ml PO Q6 [facility] Last Admin: 04/24/17 11:24 Dose: Not Given Tacrolimus (Prograf Cap) 1 mg PO Q12 [facility] Last Admin: 04/24/17 10:01 Dose: 1 mg Temazepam (Restoril) 15 mg PO HS PRN PRN Reason: Insomnia Last Admin: 04/23/17 23:16 Dose: 15 mg - Labs Labs: 04/24/17 07:35 04/24/17 07:35 - Constitutional Appears: No Acute Distress - Head Exam Head Exam: NORMAL INSPECTION - Eye Exam Eye Exam: EOMI, PERRL - ENT Exam ENT Exam: Normal Oropharynx - Respiratory Exam Respiratory Exam: Clear to Ausculation Bilateral - Cardiovascular Exam Cardiovascular Exam: REGULAR RHYTHM, +S1, +S2 - GI/Abdominal Exam GI & Abdominal Exam: Soft, Normal Bowel Sounds. absent: Tenderness - Extremities Exam Extremities Exam: absent: Calf Tenderness, Pedal Edema - Neurological Exam Neurological Exam: Awake, CN II-XII Intact, Normal Gait, Oriented x3, Reflexes Normal - Skin Skin Exam: Normal Color Assessment and Plan (1) C. difficile colitis Assessment & Plan: patient started on by mouth vancomycin 125 mg 4 times a day for 10 days. Enteric and contact precautions. Status: Acute (2) Influenza-like illness Assessment & Plan: patient on Tamiflu 75 mg by mouth twice a day 5th day. DC after the last dose today dc by mouth Zithromax. Status: Acute (3) Anxiety Status: Acute (4) Diabetes mellitus, insulin dependent (IDDM), uncontrolled Status: Acute (5) S/P liver transplant Status: Acute (6) Gram positive septicemia Assessment & Plan: blood cultures repeat negative growth. Staph coagulase-negative bacteremia was probably contaminant. Status: Acute (7) Vaginitis due to Chrissy Assessment & Plan: patient on Monistat vaginal suppositories one at bedtime daily for 5 days. Status: Acute
[2017-04-24] MEDS: Sodium Chloride 0.9% 1,000 ML IV SCH (16:36)
[2017-04-24] MEDS: Vancomycin 125 MG/5 ML SOLN (ORAL/RECTAL) PO SCH (21:43)
--- NOTE | 2017-04-24 21:50 | CP.PCM.PN ---
Subjective - Date & Time of Evaluation Date of Evaluation: 04/24/17 Time of Evaluation: 21:43 - Subjective Subjective: uncontrolled IDDM & hypoglycemia Objective - Vital Signs/Intake and Output Vital Signs (last 24 hours): Temp Pulse Resp BP Pulse Ox 98.1 F 83 20 95/52 L 97 04/24/17 16:00 04/24/17 16:00 04/24/17 16:00 04/24/17 16:00 04/24/17 16:00 Intake and Output: 04/24/17 04/25/17 18:59 06:59 Intake Total 280 Balance 280 - Medications Medications: Current Medications Aripiprazole (Abilify) 2 mg PO DAILY [facility] Last Admin: 04/24/17 10:01 Dose: 2 mg Clonidine HCl (Catapres) 0.1 mg PO BID [facility] Last Admin: 04/24/17 17:20 Dose: Not Given Enoxaparin Sodium (Lovenox) 40 mg SC DAILY [facility] Last Admin: 04/24/17 09:51 Dose: 40 mg Ergocalciferol (Drisdol 50,000 Intl Units Cap) 1 cap PO QWK [facility] Famotidine (Pepcid) 20 mg PO DAILY [facility] Last Admin: 04/24/17 09:52 Dose: 20 mg Sodium Chloride (Sodium Chloride 0.9%) 1,000 mls @ 50 mls/hr IV .Q20H [facility] Stop: 04/24/17 22:00 Last Admin: 04/24/17 16:36 Dose: 50 mls/hr Insulin Aspart (Novolog Mix 70/30 (70/30 Units/Ml)) 20 units SC BIDPC [facility] Insulin Human Regular (Novolin R) 0 unit SC ACHS [facility] PRN Reason: Protocol Last Admin: 04/24/17 21:25 Dose: Not Given Lorazepam (Ativan) 0.5 mg PO BID [facility] Last Admin: 04/24/17 18:11 Dose: 0.5 mg Miconazole (Monistat 3) 200 mg VAG HS [facility] Stop: 04/24/17 23:00 Last Admin: 04/23/17 22:15 Dose: 200 mg Promethazine HCl/Dextromethorphan (Phenergan Dm Syrup) 5 ml PO Q6 [facility] Last Admin: 04/24/17 17:21 Dose: Not Given Tacrolimus (Prograf Cap) 1 mg PO Q12 [facility] Last Admin: 04/24/17 10:01 Dose: 1 mg Temazepam (Restoril) 15 mg PO HS PRN PRN Reason: Insomnia Last Admin: 04/23/17 23:16 Dose: 15 mg Vancomycin HCl (Vancocin (Oral Or Rectal Use)) 125 mg PO QID [facility] Stop: 05/04/17 22:01 - Labs Labs: 04/24/17 07:35 04/24/17 07:35 Assessment and Plan (1) Hypoglycemia due to insulin Assessment & Plan: Endocrine consult f/u reason for consult: hypoglycemia /uncontrolled diabetes Source: patient & chart review Ms. Mckenna is 77 y/o admitted for flu like symtoms , on immunosupressive thyrapy for liver trasplant , on antibiotics as per pt. has DM x 30 years (-) neuropathy , (-) retinopathy , (-) nephropathy (-) CAD (-) PVD outpatient diabetes management regimen : NPH 10 units bid & humalog 6 units tid blood glucose log : today 8am 400 -300-90-300 no hypoglycemia Allergy NKDA Past medical history: hep c Past surgical history: s/p liver trasplant & CS Psychiatry history: (+) psychiatry disorder Social history : denies smoking , ETOH use or illicit drug use Family history : father with diabetes ROS: Constitutional: denies fever,(+) tiredness/weakness. HEENT: denies earache, change in voice .Respiratory: (+) cough, sob . CVS :no chest pain, no palpitations . Abdomen: no abdominal pain, no nausea /vomiting, no change bowel movement. ADOBE LAYER : denies light-headedness, dizziness. Extremities: no edema, no tremors. Skin: no itching, no rash Physical exam Well-developed AAO x3 , ,NAD VSS HEENT: norm cephalic, atraumatic, no lid lag , no exophthalmos NECK: supple, no palpable lymphadenopathy THYROID: no palpable thyromegaly, not tender CHEST: fair air entry, bilateral, CVS: S1,S2 ABDOMEN: bowel sound present, benign, obese, no wide purple striae , no bruises EXTREMITIES: no edema, clubbing or cyanosis, no palpable hand tremors Skin: acanthosis nigricans lab: a1c 8.3 , TSH 3.80 03/2017 cr 1.1, urine 3+ glucose 10/2016 tsh 2.90 , a1c 8.9 Assessment sever symptomatic hypoglycemia , resolved uncontrolled IDDM flu like symtoms s/p liver trasplant on immunosuppressive therpay plan increase Novolin 70/30 20 units bid with meals , if eat > 60% continue Novoloin R low dose coverage, no 3 am coverage d/c novoloin R tid with meals we will follow with you. Status: Acute (2) Diabetes mellitus, insulin dependent (IDDM), uncontrolled Status: Acute (3) Influenza-like illness Status: Acute (4) S/P liver transplant Status: Acute (5) Gram positive septicemia Status: Acute
[2017-04-24] MEDS ORDERED: (Novolin 70/30) NPH/Regular 70/30 Units/ml 10 ml vial SC SCH (22:00)
--- NOTE | 2017-04-24 22:32 | CP.PCM.PN ---
Subjective - Date & Time of Evaluation Date of Evaluation: 04/24/17 Time of Evaluation: 18:00 - Subjective Subjective: Pt seen and examined, pt has decreased diarrhea, no fevr, no chills, Blood sugars are widely fluctuating between normal to very high 300 -400 Objective - Vital Signs/Intake and Output Vital Signs (last 24 hours): Temp Pulse Resp BP Pulse Ox 98.1 F 83 20 95/52 L 97 04/24/17 16:00 04/24/17 16:00 04/24/17 16:00 04/24/17 16:00 04/24/17 16:00 Intake and Output: 04/24/17 04/25/17 18:59 06:59 Intake Total 280 Balance 280 - Medications Medications: Current Medications Aripiprazole (Abilify) 2 mg PO DAILY [facility] Last Admin: 04/24/17 10:01 Dose: 2 mg Clonidine HCl (Catapres) 0.1 mg PO BID [facility] Last Admin: 04/24/17 17:20 Dose: Not Given Enoxaparin Sodium (Lovenox) 40 mg SC DAILY [facility] Last Admin: 04/24/17 09:51 Dose: 40 mg Ergocalciferol (Drisdol 50,000 Intl Units Cap) 1 cap PO QWK [facility] Famotidine (Pepcid) 20 mg PO DAILY [facility] Last Admin: 04/24/17 09:52 Dose: 20 mg Insulin Aspart (Novolog Mix 70/30 (70/30 Units/Ml)) 20 units SC BIDPC [facility] Insulin Human Regular (Novolin R) 0 unit SC ACHS [facility] PRN Reason: Protocol Last Admin: 04/24/17 21:25 Dose: Not Given Lorazepam (Ativan) 0.5 mg PO BID [facility] Last Admin: 04/24/17 18:11 Dose: 0.5 mg Miconazole (Monistat 3) 200 mg VAG HS [facility] Stop: 04/24/17 23:00 Last Admin: 04/24/17 21:43 Dose: 200 mg Promethazine HCl/Dextromethorphan (Phenergan Dm Syrup) 5 ml PO Q6 [facility] Last Admin: 04/24/17 17:21 Dose: Not Given Tacrolimus (Prograf Cap) 1 mg PO Q12 [facility] Last Admin: 04/24/17 21:43 Dose: 1 mg Temazepam (Restoril) 15 mg PO HS PRN PRN Reason: Insomnia Last Admin: 04/24/17 21:42 Dose: 15 mg Vancomycin HCl (Vancocin (Oral Or Rectal Use)) 125 mg PO QID [facility] Stop: 05/04/17 22:01 Last Admin: 04/24/17 21:43 Dose: 125 mg - Labs Labs: 04/24/17 07:35 04/24/17 07:35 - Constitutional Appears: No Acute Distress, Chronically Ill - Head Exam Head Exam: ATRAUMATIC, NORMAL INSPECTION, NORMOCEPHALIC - Eye Exam Eye Exam: EOMI, Normal appearance, PERRL Pupil Exam: NORMAL ACCOMODATION, PERRL - Respiratory Exam Respiratory Exam: Clear to Ausculation Bilateral, NORMAL BREATHING PATTERN - Cardiovascular Exam Cardiovascular Exam: REGULAR RHYTHM, +S1, +S2. absent: Murmur - GI/Abdominal Exam GI & Abdominal Exam: Soft, Normal Bowel Sounds. 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
[2017-04-25] MEDS: Promethazine DM 6.25 mg-15 mg/5 ml Syrup PO SCH ×2 (00:14→05:34)
[2017-04-25 07:12] LABS: BASO % 0.1 % (0.0-2.0); HEMOGLOBIN 10.4 g/dL (11.0-16.0); LYMPH # 0.4 K/uL (1.0-4.3); LYMPH % 3.5 % (20.0-40.0); MEAN CELL VOLUME 94.8 fL (81.0-99.0); MEAN CORPUSCULAR HEMOGLOBIN 30.4 pg (27.0-31.0); MEAN PLATELET VOLUME 9.5 fL (7.2-11.7); MONO # 0.2 K/uL (0.0-0.8); MONO % 1.7 % (0.0-10.0); NEUT # 9.6 K/uL (1.8-7.0); NEUT % 94.7 % (50.0-75.0); PLATELET COUNT 105 K/uL (130-400); RBC 3.42 Mil/uL (3.80-5.20); RED CELL DISTRIBUTION WIDTH 15.4 % (11.5-14.5); WHITE BLOOD COUNT 10.2 K/uL (4.8-10.8)
[2017-04-25] MEDS: (Novolin R) Insulin Human Regular 100 units/ml vial SC SCH ×4 (07:14→21:39)
[2017-04-25 08:12] LABS: ALB/GLOB RATIO 1.1 (1.0-2.1); ALBUMIN 3.6 g/dL (3.5-5.0); CALCIUM 8.4 mg/dl (8.6-10.4)
[2017-04-25] MEDS: (Novolog Mix 70/30) Insulin Aspart/Insulin Aspar 100 units/ml SC SCH ×2 (09:23→18:05)
[2017-04-25] MEDS: Enoxaparin 40 mg Syringe SC SCH (09:24)
[2017-04-25] MEDS: Vancomycin 125 MG/5 ML SOLN (ORAL/RECTAL) PO SCH ×4 (09:40→21:40)
[2017-04-25] MEDS ORDERED: Ergocalciferol 50,000 Intl Units Cap PO SCH (10:00)
[2017-04-25 10:39] LABS: BANDS 3 % (0-2); LYMPHOCYTE 3 % (20-40); MONOCYTE 2 % (0-10); NEUTROPHIL 92 % (50-75); TOTAL CELLS COUNTED 100
[2017-04-25 10:40] LABS: ANISOCYTOSIS SLIGHT; BURR CELLS SLIGHT; OVALOCYTES SLIGHT; PLATELET ESTIMATE DECREASED (NORMAL); POIKILOCYTOSIS SLIGHT; SCHISTOCYTES SLIGHT; TEARDROP CELLS SLIGHT
[2017-04-25] MEDS ORDERED: GUAIFENESIN DM PO PRN (12:28)
[2017-04-25] MEDS ORDERED: Promethazine DM 6.25 mg-15 mg/5 ml Syrup PO PRN (12:30)
[2017-04-25] MEDS ORDERED: Sodium Chloride 0.9% 1,000 ML IV ONE (15:05)
[2017-04-25] MEDS ORDERED: (Novolog) Insulin Aspart, Recombinant 100 u/ml 10 ml vial IVP STA (15:05)
--- NOTE | 2017-04-25 15:11 | CP.PCM.PN ---
Subjective - Date & Time of Evaluation Date of Evaluation: 04/25/17 Time of Evaluation: 14:00 - Subjective Subjective: PRIMARY RN SOURAV NOTIFIED PHOTOVOLTAIC INSTALLATION TECHNICIAN OF ELEVATED BLOOD SUGAR. REVIEW OF CHART---DR. Patricia ORTEGA IS ENDOCRINILOGY ON THE CASE. SOURAV RN SPOKE W DR. ORTEGA THIS MORNING , HOWEVER, I HAVE REQUESTED THAT SHE RECALL DR. ORTEGA FOR BLOOD SUGAR NOT IMPROVING AFTER SLIDING SCALE BEING GIVEN. DR. STAHL TO ROUNDS SHORTLY. WILL ADD MORE ORDERS ONCE SEEN W DR. STAHL. Objective - Vital Signs/Intake and Output Vital Signs (last 24 hours): Temp Pulse Resp BP Pulse Ox 98.2 F 96 H 20 122/65 96 04/25/17 07:35 04/25/17 09:25 04/25/17 07:35 04/25/17 09:25 04/25/17 07:35 Intake and Output: 04/25/17 04/25/17 06:59 18:59 Intake Total 250 Balance 250 - Medications Medications: Current Medications Aripiprazole (Abilify) 2 mg PO DAILY [facility] Last Admin: 04/25/17 09:21 Dose: 2 mg Clonidine HCl (Catapres) 0.1 mg PO BID [facility] Last Admin: 04/25/17 09:21 Dose: 0.1 mg Enoxaparin Sodium (Lovenox) 40 mg SC DAILY [facility] Last Admin: 04/25/17 09:24 Dose: 40 mg Ergocalciferol (Drisdol 50,000 Intl Units Cap) 1 cap PO QWK [facility] Last Admin: 04/25/17 09:39 Dose: 1 cap Famotidine (Pepcid) 20 mg PO DAILY [facility] Last Admin: 04/25/17 09:21 Dose: 20 mg Guaifenesin/Dextromethorphan (Diabetic Tussin) 5 ml PO Q4H PRN PRN Reason: Cough Sodium Chloride (Sodium Chloride 0.9%) 1,000 mls @ 1,000 mls/hr IV .Q1H [facility] Stop: 04/25/17 16:04 Insulin Aspart (Novolog Mix 70/30 (70/30 Units/Ml)) 20 units SC BIDPC [facility] Last Admin: 04/25/17 09:23 Dose: 20 units Insulin Aspart (Novolog) 8 unit IVP STAT [facility] Stop: 04/25/17 15:06 Insulin Human Regular (Novolin R) 0 unit SC ACHS [facility] PRN Reason: Protocol Last Admin: 04/25/17 12:22 Dose: 6 unit Lorazepam (Ativan) 0.5 mg PO DAILY [facility] Tacrolimus (Prograf Cap) 1 mg PO Q12 [facility] Last Admin: 04/25/17 09:21 Dose: 1 mg Temazepam (Restoril) 15 mg PO HS PRN PRN Reason: Insomnia Last Admin: 04/24/17 21:42 Dose: 15 mg Vancomycin HCl (Vancocin (Oral Or Rectal Use)) 125 mg PO QID [facility] Stop: 05/04/17 22:01 Last Admin: 04/25/17 14:47 Dose: 125 mg - Labs Labs: 04/25/17 06:47 04/25/17 06:47
[2017-04-25 15:43] LABS: ABG ALLEN TEST P; ARTERIAL BLOOD GAS HCO3 15.5 mmol/L (21-28); ARTERIAL BLOOD GAS HEMOGLOBIN 6.1 g/dL (11.7-17.4); ARTERIAL BLOOD GAS O2 SAT 100.2 % (95-98); ARTERIAL BLOOD GAS PCO2 18 mm/Hg (35-45); ARTERIAL BLOOD GAS PH 7.41 (7.35-7.45); ARTERIAL BLOOD GAS PO2 121 mm/Hg (80-100)
[2017-04-25] MEDS ORDERED: (Novolog) Insulin Aspart, Recombinant 100 u/ml 10 ml vial IVP ONE (15:45)
[2017-04-25] MEDS: Sodium Chloride 0.9% 1,000 ML IV SCH ×2 (16:29→18:04)
--- NOTE | 2017-04-25 17:48 | CP.PCM.CON ---
History of Present Illness - History of Present Illness History of Present Illness: 77-year-old female with a history of liver transplant admitted with a respiratory infection. ICU evaluation was called for uncontrolled sugar. Patient now is more awake. Received 1 L of IV bolus. Responding very well. Not in any distress. The latest blood sugar is 336. Overall patient is not eating well for the last 2-3 days. Patient is having some abdominal pain, and episodes of diarrhea noted. No vomiting. She's not eating the hospital food. On examination: Vital signs stable. Chest bilateral good air entry. Patient is making some urine now. Denies any nausea vomiting. Patient's labs reviewed in Elevated BUN/creatinine noted C. difficile is positive As the patient is improving with IV fluid, will continue the IV hydration for now. Patient is already on C. difficile treatment. No need for ICU management at this time. Glucose control. We'll follow the patient if needed Past Patient History - Infectious Disease Hx of Infectious Diseases: None - Past Medical History & Family History Past Medical History?: Yes - Past Social History Smoking Status: Never Smoked - CARDIAC Hx Hypertension: Yes - PULMONARY Hx Chronic Obstructive Pulmonary Disease (COPD): Yes - NEUROLOGICAL Hx Neurological Disorder: No - HEENT Hx HEENT Problems: No - RENAL Hx Chronic Kidney Disease: No - ENDOCRINE/METABOLIC Hx Hypothyroidism: No - HEMATOLOGICAL/ONCOLOGICAL Hx Anemia: No Hx Human Immunodeficiency Virus (HIV): No Hx Sickle Cell Disease: No - INTEGUMENTARY Hx Dermatological Problems: No - MUSCULOSKELETAL/RHEUMATOLOGICAL Hx Arthritis: Yes (L KNEE; BACK) - GASTROINTESTINAL Hx Gastritis: Yes - GENITOURINARY/GYNECOLOGICAL Hx Sexually Transmitted Disorders: No - PSYCHIATRIC Hx Anxiety: Yes Hx Bipolar Disorder: Yes Hx Depression: Yes Hx Substance Use: No - SURGICAL HISTORY Hx Appendectomy: No Hx Carotid Endarterectomy: No Hx Cholecystectomy: No Hx Coronary Artery Bypass Graft: No Hx Coronary Stent: No Hx Tonsillectomy: No - ANESTHESIA Hx Anesthesia: Yes Hx Anesthesia Reactions: No Hx Malignant Hyperthermia: No Meds Allergies/Adverse Reactions: Allergies Allergy/AdvReac Type Severity Reaction Status Date / Time No Known Allergies Allergy Verified 04/18/17 15:04 - Medications Medications: Current Medications Enoxaparin Sodium (Lovenox) 40 mg SC DAILY [facility] Last Admin: 04/25/17 09:24 Dose: 40 mg Famotidine (Pepcid) 20 mg PO DAILY [facility] Last Admin: 04/25/17 09:21 Dose: 20 mg Insulin Aspart (Novolog Mix 70/30 (70/30 Units/Ml)) 20 units SC BIDPC [facility] Last Admin: 04/25/17 09:23 Dose: 20 units Insulin Human Regular (Novolin R) 0 unit SC ACHS [facility] PRN Reason: Protocol Last Admin: 04/25/17 12:22 Dose: 6 unit Lorazepam (Ativan) 0.5 mg PO BID [facility] Tacrolimus (Prograf Cap) 1 mg PO Q12 [facility] Last Admin: 04/25/17 09:21 Dose: 1 mg Temazepam (Restoril) 15 mg PO HS PRN PRN Reason: Insomnia Last Admin: 04/24/17 21:42 Dose: 15 mg Vancomycin HCl (Vancocin (Oral Or Rectal Use)) 125 mg PO QID [facility] Stop: 05/04/17 22:01 Last Admin: 04/25/17 14:47 Dose: 125 mg Results - Vital Signs Recent Vital Signs: Last Vital Signs Temp 98.0 F 04/25/17 15:57 Pulse 79 04/25/17 15:57 Resp 20 04/25/17 15:57 BP 101/67 04/25/17 15:57 Pulse Ox 98 04/25/17 15:57 - Labs Result Diagrams: 04/25/17 06:47 04/25/17 06:47 Labs: Laboratory Results - last 24 hr 04/21/17 04/24/17 04/24/17 08:26 00:15 21:01 WBC RBC Hgb Hct MCV MCH MCHC RDW Plt Count MPV Neut % (Auto) Lymph % (Auto) [place] % (Auto) Eos % (Auto) Baso % (Auto) Neut # (Auto) Lymph # (Auto) [place] # (Auto) Eos # (Auto) Baso # (Auto) Neutrophils % (Manual) Band Neutrophils % Lymphocytes % (Manual) Monocytes % (Manual) Platelet Estimate Poikilocytosis (manual Anisocytosis (manual) Macrocytosis (manual) Tear Drop Cells Ovalocytes [place] Cells Schistocytes Puncture Site pCO2 pO2 HCO3 ABG pH ABG Total CO2 ABG O2 Saturation ABG Base Excess ABG Hemoglobin ABG Carboxyhemoglobin POC ABG HHb (Measured) ABG Methemoglobin Miguel A Test Hgb O2 Saturation Liter Flow Crit Value Called To Crit Value Called By Crit Value Read Back Blood Gas Notified Time Sodium Potassium Chloride Carbon Dioxide Anion Gap BUN Creatinine Est GFR ( Amer) Est GFR (Non-Af Amer) POC Glucose (mg/dL) 335 H Random Glucose Calcium Total Bilirubin AST ALT Alkaline Phosphatase Total Protein Albumin Globulin Albumin/Globulin Ratio C. difficile Ag & Toxin Positive H Influenza Type A Ab 1:32 H Influenza Type B Ab <1:8 04/25/17 04/25/17 04/25/17 06:47 06:47 07:02 WBC 10.2 D RBC 3.42 L Hgb 10.4 L Hct 32.5 L MCV 94.8 D MCH 30.4 MCHC 32.0 L RDW 15.4 H Plt Count 105 L MPV 9.5 Neut % (Auto) 94.7 H Lymph % (Auto) 3.5 L [place] % (Auto) 1.7 Eos % (Auto) 0.0 Baso % (Auto) 0.1 Neut # (Auto) 9.6 H Lymph # (Auto) 0.4 L [place] # (Auto) 0.2 Eos # (Auto) 0.0 Baso # (Auto) 0.0 Neutrophils % (Manual) 92 H Band Neutrophils % 3 H Lymphocytes % (Manual) 3 L Monocytes % (Manual) 2 Platelet Estimate Decreased L Poikilocytosis (manual Slight Anisocytosis (manual) Slight Macrocytosis (manual) Slight Tear Drop Cells Slight Ovalocytes Slight [place] Cells Slight Schistocytes Slight Puncture Site pCO2 pO2 HCO3 ABG pH ABG Total CO2 ABG O2 Saturation ABG Base Excess ABG Hemoglobin ABG Carboxyhemoglobin POC ABG HHb (Measured) ABG Methemoglobin Miguel A Test Hgb O2 Saturation Liter Flow Crit Value Called To Crit Value Called By Crit Value Read Back Blood Gas Notified Time Sodium 124 L Potassium 6.0 H Chloride 90 L Carbon Dioxide 9 L* D Anion Gap 31 H BUN 41 H Creatinine 2.2 H Est GFR ( Amer) 26 Est GFR (Non-Af Amer) 22 POC Glucose (mg/dL) > 500 H* Random Glucose 833 H* D Calcium 8.4 L Total Bilirubin 1.2 AST 40 H ALT 40 Alkaline Phosphatase 157 H Total Protein 6.7 Albumin 3.6 Globulin 3.1 Albumin/Globulin Ratio 1.1 C. difficile Ag & Toxin Influenza Type A Ab Influenza Type B Ab 0204/25/17 04/25/17 11:43 11:45 14:31 WBC RBC Hgb Hct MCV MCH MCHC RDW Plt Count MPV Neut % (Auto) Lymph % (Auto) [place] % (Auto) Eos % (Auto) Baso % (Auto) Neut # (Auto) Lymph # (Auto) [place] # (Auto) Eos # (Auto) Baso # (Auto) Neutrophils % (Manual) Band Neutrophils % Lymphocytes % (Manual) Monocytes % (Manual) Platelet Estimate Poikilocytosis (manual Anisocytosis (manual) Macrocytosis (manual) Tear Drop Cells Ovalocytes [place] Cells Schistocytes Puncture Site pCO2 pO2 HCO3 ABG pH ABG Total CO2 ABG O2 Saturation ABG Base Excess ABG Hemoglobin ABG Carboxyhemoglobin POC ABG HHb (Measured) ABG Methemoglobin Miguel A Test Hgb O2 Saturation Liter Flow Crit Value Called To Crit Value Called By Crit Value Read Back Blood Gas Notified Time Sodium Potassium Chloride Carbon Dioxide Anion Gap BUN Creatinine Est GFR ( Amer) Est GFR (Non-Af Amer) POC Glucose (mg/dL) > 500 H* > 500 H* > 500 H* Random Glucose Calcium Total Bilirubin AST ALT Alkaline Phosphatase Total Protein Albumin Globulin Albumin/Globulin Ratio C. difficile Ag & Toxin Influenza Type A Ab Influenza Type B Ab 04/25/17 04/25/17 04/25/17 15:17 15:30 16:22 WBC RBC Hgb Hct MCV MCH MCHC RDW Plt Count MPV Neut % (Auto) Lymph % (Auto) [place] % (Auto) Eos % (Auto) Baso % (Auto) Neut # (Auto) Lymph # (Auto) [place] # (Auto) Eos # (Auto) Baso # (Auto) Neutrophils % (Manual) Band Neutrophils % Lymphocytes % (Manual) Monocytes % (Manual) Platelet Estimate Poikilocytosis (manual Anisocytosis (manual) Macrocytosis (manual) Tear Drop Cells Ovalocytes [place] Cells Schistocytes Puncture Site Lr pCO2 18 L* pO2 121 H HCO3 15.5 L ABG pH 7.41 ABG Total CO2 12.0 L ABG O2 Saturation 100.2 H ABG Base Excess -12.1 L ABG Hemoglobin 6.1 L ABG Carboxyhemoglobin 1.9 H POC ABG HHb (Measured) -0.2 L ABG Methemoglobin 1.8 Miguel A Test P Hgb O2 Saturation 96.6 Liter Flow 21.0 Crit Value Called To Dr hanley Crit Value Called By Ga.rt Crit Value Read Back Y Blood Gas Notified Time 1543 Sodium Potassium Chloride Carbon Dioxide Anion Gap BUN Creatinine Est GFR ( Amer) Est GFR (Non-Af Amer) POC Glucose (mg/dL) 472 H* 339 H Random Glucose Calcium Total Bilirubin AST ALT Alkaline Phosphatase Total Protein Albumin Globulin Albumin/Globulin Ratio C. difficile Ag & Toxin Influenza Type A Ab Influenza Type B Ab
[2017-04-25] MEDS ORDERED: Sodium Chloride 0.9% 1,000 ML IV SCH (18:00)
[2017-04-25 18:02] LABS: ALB/GLOB RATIO 1.1 (1.0-2.1); ALBUMIN 3.1 g/dL (3.5-5.0); ALT/SGPT 34 U/L (9-52); AST/SGOT 29 U/L (14-36); BLOOD UREA NITROGEN 47 mg/dL (7-17); CALCIUM 8.3 mg/dl (8.6-10.4); GFR AFRICAN-AMERICAN 20; GFR NON-AFRICAN AMERICAN 16
[2017-04-25] MEDS ORDERED: Potassium Chloride 20 mEq/15 ml LIQ UD PO STA (19:08)
--- NOTE | 2017-04-25 19:46 | CP.PCM.PN ---
Subjective - Date & Time of Evaluation Date of Evaluation: 04/25/17 Time of Evaluation: 19:41 - Subjective Subjective: hypoglycemia & uncontrolled dm Objective - Vital Signs/Intake and Output Vital Signs (last 24 hours): Temp Pulse Resp BP Pulse Ox 98.0 F 79 20 101/67 98 04/25/17 15:57 04/25/17 15:57 04/25/17 15:57 04/25/17 15:57 04/25/17 15:57 - Medications Medications: Current Medications Enoxaparin Sodium (Lovenox) 40 mg SC DAILY [facility] Last Admin: 04/25/17 09:24 Dose: 40 mg Famotidine (Pepcid) 20 mg PO DAILY [facility] Last Admin: 04/25/17 09:21 Dose: 20 mg Sodium Chloride (Sodium Chloride 0.9%) 1,000 mls @ 100 mls/hr IV .Q10H [facility] Last Admin: 04/25/17 18:04 Dose: 100 mls/hr Potassium Chloride (Potassium Chloride 20 Meq/100 Ml) 20 meq in 100 mls @ 50 mls/hr IVPB ONCE ONE Stop: 04/25/17 21:08 Insulin Aspart (Novolog Mix 70/30 (70/30 Units/Ml)) 20 units SC TIDPC [facility] Insulin Human Regular (Novolin R) 0 unit SC ACHS [facility] PRN Reason: Protocol Last Admin: 04/25/17 18:06 Dose: 4 unit Lorazepam (Ativan) 0.5 mg PO BID [facility] Last Admin: 04/25/17 18:06 Dose: 0.5 mg Tacrolimus (Prograf Cap) 1 mg PO Q12 [facility] Last Admin: 04/25/17 09:21 Dose: 1 mg Vancomycin HCl (Vancocin (Oral Or Rectal Use)) 125 mg PO QID [facility] Stop: 05/04/17 22:01 Last Admin: 04/25/17 18:07 Dose: 125 mg - Labs Labs: 04/25/17 06:47 04/25/17 17:28 Assessment and Plan (1) Hypoglycemia due to insulin Assessment & Plan: Endocrine consult f/u reason for consult: hypoglycemia /uncontrolled diabetes Source: patient & chart review Ms. Mckenna is 77 y/o admitted for flu like symtoms , on immunosupressive thyrapy for liver trasplant , on antibiotics as per pt. has DM x 30 years (-) neuropathy , (-) retinopathy , (-) nephropathy (-) CAD (-) PVD outpatient diabetes management regimen : NPH 10 units bid & humalog 6 units tid blood glucose log : today 300- >500 with c-diff , with poor intake , not on steroids or D5 , on IV hyderation no poglycemia Allergy NKDA Past medical history: hep c Past surgical history: s/p liver trasplant & CS Psychiatry history: (+) psychiatry disorder Social history : denies smoking , ETOH use or illicit drug use Family history : father with diabetes ROS: Constitutional: denies fever,(+) tiredness/weakness. HEENT: denies earache, change in voice .Respiratory: (+) cough, sob . CVS :no chest pain, no palpitations . Abdomen: no abdominal pain, no nausea /vomiting, no change bowel movement. STOCKKEEPER : denies light-headedness, dizziness. Extremities: no edema, no tremors. Skin: no itching, no rash Physical exam Well-developed AAO x3 , ,NAD VSS HEENT: norm cephalic, atraumatic, no lid lag , no exophthalmos NECK: supple, no palpable lymphadenopathy THYROID: no palpable thyromegaly, not tender CHEST: fair air entry, bilateral, CVS: S1,S2 ABDOMEN: bowel sound present, benign, obese, no wide purple striae , no bruises EXTREMITIES: no edema, clubbing or cyanosis, no palpable hand tremors Skin: acanthosis nigricans lab: a1c 8.3 , TSH 3.80 03/2017 cr 1.1, urine 3+ glucose 10/2016 tsh 2.90 , a1c 8.9 Assessment sever symptomatic hypoglycemia , resolved uncontrolled IDDM flu like symtoms /gram (+) septicemia , c-diff s/p liver trasplant on immunosuppressive therpay plan increase Novolin 70/30 20 units tid with meals , if eat > 60% continue Novoloin R low dose coverage, no 3 am coverage d/c novoloin R tid with meals we will follow with you. Status: Acute (2) Diabetes mellitus, insulin dependent (IDDM), uncontrolled Status: Acute (3) Influenza-like illness Status: Acute (4) S/P liver transplant Status: Acute (5) Gram positive septicemia Status: Acute
--- NOTE | 2017-04-25 20:45 | CP.PCM.PN ---
Subjective - Date & Time of Evaluation Date of Evaluation: 04/25/17 Time of Evaluation: 20:45 - Subjective Subjective: EVENTS NOTED.. ICU EVALUATION FOR HYPERGLYCEMIA. AFEBRILE,AXA C/O LOOSE STOOLS / ABDOMINAL PAIN STOOLS +VE FOR C.DIFFICILE TOXIN. ON IV FLUIDS. LABS REVIEWED. CREATININE 2.8/bun 47 LFTS NORMAL TRANSAMINASES, ALKALINE- PHOSPHATASE 133 IMPROVING. HEPATITIS C -VE Objective - Vital Signs/Intake and Output Vital Signs (last 24 hours): Temp Pulse Resp BP Pulse Ox 98.0 F 79 20 101/67 98 04/25/17 15:57 04/25/17 15:57 04/25/17 15:57 04/25/17 15:57 04/25/17 15:57 - Medications Medications: Current Medications Enoxaparin Sodium (Lovenox) 40 mg SC DAILY [facility] Last Admin: 04/25/17 09:24 Dose: 40 mg Famotidine (Pepcid) 20 mg PO DAILY [facility] Last Admin: 04/25/17 09:21 Dose: 20 mg Sodium Chloride (Sodium Chloride 0.9%) 1,000 mls @ 100 mls/hr IV .Q10H [facility] Last Admin: 04/25/17 18:04 Dose: 100 mls/hr Potassium Chloride (Potassium Chloride 20 Meq/100 Ml) 20 meq in 100 mls @ 50 mls/hr IVPB ONCE ONE Stop: 04/25/17 21:08 Insulin Aspart (Novolog Mix 70/30 (70/30 Units/Ml)) 20 units SC TIDPC [facility] Insulin Human Regular (Novolin R) 0 unit SC ACHS [facility] PRN Reason: Protocol Last Admin: 04/25/17 18:06 Dose: 4 unit Lorazepam (Ativan) 0.5 mg PO BID [facility] Last Admin: 04/25/17 18:06 Dose: 0.5 mg Tacrolimus (Prograf Cap) 1 mg PO Q12 [facility] Last Admin: 04/25/17 09:21 Dose: 1 mg Vancomycin HCl (Vancocin (Oral Or Rectal Use)) 125 mg PO QID [facility] Stop: 05/04/17 22:01 Last Admin: 04/25/17 18:07 Dose: 125 mg - Labs Labs: 04/25/17 06:47 04/25/17 17:28 - Constitutional Appears: No Acute Distress, Cachectic, Chronically Ill - Head Exam Head Exam: NORMAL INSPECTION - Eye Exam Eye Exam: EOMI, PERRL. absent: Scleral icterus - ENT Exam ENT Exam: Normal Oropharynx - Neck Exam Neck Exam: Normal Inspection - Respiratory Exam Respiratory Exam: Clear to Ausculation Bilateral - Cardiovascular Exam Cardiovascular Exam: REGULAR RHYTHM, +S1, +S2 - GI/Abdominal Exam GI & Abdominal Exam: Soft, Normal Bowel Sounds - Extremities Exam Extremities Exam: absent: Calf Tenderness, Pedal Edema - Neurological Exam Neurological Exam: Awake, CN II-XII Intact, Oriented x3 - Psychiatric Exam Psychiatric exam: Normal Mood - Skin Skin Exam: Normal Color, Warm Assessment and Plan (1) C. difficile colitis Assessment & Plan: patient on by mouth vancomycin 125 mg 4 times a day for 10 days.04/24/17 Enteric and contact precautions. Status: Acute (2) Influenza-like illness Assessment & Plan: COMPLETED A COURSE OF TAMIFLU FOR 5 DAYS. oFF ANTIBIOTICS. Status: Acute (3) Anxiety Status: Acute (4) Diabetes mellitus, insulin dependent (IDDM), uncontrolled Status: Acute (5) S/P liver transplant Assessment & Plan: HEPATITIS C -VE . PATIENT ON IMMUNOSUPPRESSIVE MEDICATIONS S/P LIVER TRANSPLANT. Status: Acute (6) Gram positive septicemia Status: Acute (7) Vaginitis due to Chrissy Assessment & Plan: PATIENT ON MONISTAT SUPPOSITORY P/V DAILY AT BEDTIME X 5DAYS. Status: Acute
--- NOTE | 2017-04-26 00:09 | CP.PCM.PN ---
Subjective - Date & Time of Evaluation Date of Evaluation: 04/25/17 Time of Evaluation: 14:35 - Subjective Subjective: Patient seen & evaluated at bedside.Pt became acidotic today, blood sugar was over 500, insulin doses adjusted, now anion gap has gone down to 14 Objective - Vital Signs/Intake and Output Vital Signs (last 24 hours): Temp Pulse Resp BP Pulse Ox 98.0 F 79 20 101/67 98 04/25/17 15:57 04/25/17 15:57 04/25/17 15:57 04/25/17 15:57 04/25/17 15:57 - Medications Medications: Current Medications Enoxaparin Sodium (Lovenox) 40 mg SC DAILY [facility] Last Admin: 04/25/17 09:24 Dose: 40 mg Famotidine (Pepcid) 20 mg PO DAILY [facility] Last Admin: 04/25/17 09:21 Dose: 20 mg Sodium Chloride (Sodium Chloride 0.9%) 1,000 mls @ 100 mls/hr IV .Q10H [facility] Last Admin: 04/25/17 18:04 Dose: 100 mls/hr Insulin Aspart (Novolog Mix 70/30 (70/30 Units/Ml)) 20 units SC TIDPC [facility] Insulin Human Regular (Novolin R) 0 unit SC ACHS [facility] PRN Reason: Protocol Last Admin: 04/25/17 21:39 Dose: 2 unit Lorazepam (Ativan) 0.5 mg PO BID [facility] Last Admin: 04/25/17 18:06 Dose: 0.5 mg Tacrolimus (Prograf Cap) 1 mg PO Q12 [facility] Last Admin: 04/25/17 21:40 Dose: 1 mg Vancomycin HCl (Vancocin (Oral Or Rectal Use)) 125 mg PO QID [facility] Stop: 05/04/17 22:01 Last Admin: 04/25/17 21:40 Dose: 125 mg - Labs Labs: 04/25/17 06:47 04/25/17 17:28 - Constitutional Appears: No Acute Distress, Confused - Head Exam Head Exam: ATRAUMATIC, NORMAL INSPECTION, NORMOCEPHALIC - Eye Exam Eye Exam: EOMI, Normal appearance, PERRL Pupil Exam: NORMAL ACCOMODATION, PERRL - Respiratory Exam Respiratory Exam: Clear to Ausculation Bilateral - Cardiovascular Exam Cardiovascular Exam: REGULAR RHYTHM, +S1, +S2. absent: Murmur - GI/Abdominal Exam GI & Abdominal Exam: Soft, Normal Bowel Sounds. 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
[2017-04-26 00:57] LABS: CALCIUM 8.1 mg/dl (8.6-10.4); MAGNESIUM 1.6 mg/dL (1.6-2.3)
[2017-04-26] MEDS ORDERED: Potassium Chloride 20 mEq/15 ml LIQ UD PO STA (06:10)
[2017-04-26] MEDS ORDERED: Magnesium Sulfate 1 gm in D5W 1 GM/100 ML BAG IVPB ONE ×2 (06:11→08:00)
[2017-04-26] MEDS ORDERED: Sodium Chloride 0.9% 1,000 ML IV SCH (06:14)
[2017-04-26] MEDS: (Novolin R) Insulin Human Regular 100 units/ml vial SC SCH ×4 (08:30→21:27)
[2017-04-26] MEDS: (Novolog Mix 70/30) Insulin Aspart/Insulin Aspar 100 units/ml SC SCH ×2 (09:03→14:20)
[2017-04-26] MEDS: Vancomycin 125 MG/5 ML SOLN (ORAL/RECTAL) PO SCH ×4 (10:33→22:30)
[2017-04-26] MEDS: Sodium Chloride 0.9% 1,000 ML IV SCH (11:10)
--- NOTE | 2017-04-26 12:01 | CP.PCM.PN ---
Subjective - Date & Time of Evaluation Date of Evaluation: 04/26/17 Time of Evaluation: 18:00 - Subjective Subjective: pt seen and examined EVENTS NOTED.ICU EVALUATION FOR HYPERGLYCEMIA.AFEBRILE,AXAC /O LOOSE STOOLS /ABDOMINAL PAIN, STOOLS +VE FOR C.DIFFICILE TOXIN. ON IV FLUIDS. Objective - Vital Signs/Intake and Output Vital Signs (last 24 hours): Temp Pulse Resp BP Pulse Ox 98.0 F 82 20 157/95 H 94 L 04/26/17 07:40 04/26/17 08:00 04/26/17 07:40 04/26/17 07:40 04/26/17 07:40 - Medications Medications: Current Medications Famotidine (Pepcid) 20 mg PO DAILY [facility] Last Admin: 04/26/17 10:27 Dose: 20 mg Heparin Sodium (Porcine) (Heparin) 5,000 units SC Q8 [facility] Sodium Chloride (Sodium Chloride 0.9%) 1,000 mls @ 80 mls/hr IV .[id number] [facility] Insulin Aspart (Novolog Mix 70/30 (70/30 Units/Ml)) 20 units SC TIDPC [facility] Last Admin: 04/26/17 09:03 Dose: 20 units Insulin Human Regular (Novolin R) 0 unit SC ACHS [facility] PRN Reason: Protocol Last Admin: 04/26/17 08:30 Dose: 1 unit Lorazepam (Ativan) 0.5 mg PO BID [facility] Last Admin: 04/26/17 10:27 Dose: 0.5 mg Tacrolimus (Prograf Cap) 1 mg PO Q12 [facility] Last Admin: 04/26/17 10:27 Dose: 1 mg Vancomycin HCl (Vancocin (Oral Or Rectal Use)) 125 mg PO QID [facility] Stop: 05/04/17 22:01 Last Admin: 04/26/17 10:33 Dose: 125 mg - Labs Labs: 04/25/17 06:47 04/26/17 00:40 Assessment and Plan (1) Gram positive septicemia Status: Acute (2) Hepatitis C, chronic Status: Acute (3) Influenza-like illness Status: Acute (4) Delusion Status: Acute (5) Depression Status: Acute (6) Diabetes mellitus, insulin dependent (IDDM), uncontrolled Status: Acute (7) Hypertension Status: Chronic (8) 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
[2017-04-26 16:33] LABS: URINE BACTERIA RARE (<OCC); URINE BILIRUBIN NEGATIVE (NEGATIVE); URINE BLOOD 1+ (NEGATIVE); URINE CLARITY Clear (Clear); URINE COLOR Straw (YELLOW); URINE GLUCOSE (UA) NORMAL (Normal); URINE LEUKOCYTE ESTERASE NEG Leu/uL (Negative); URINE NITRATE NEGATIVE (NEGATIVE); URINE PROTEIN NEGATIVE (NEGATIVE); URINE UROBILINOGEN NORMAL mg/dL (0.2-1.0)
[2017-04-26 17:39] LABS: HEMOGLOBIN 10.5 g/dL (11.0-16.0); MEAN CORPUSCULAR HEMOGLOBIN 29.2 pg (27.0-31.0); RBC 3.6 Mil/uL (3.80-5.20); RED CELL DISTRIBUTION WIDTH 14.9 % (11.5-14.5)
[2017-04-26 17:41] LABS: WHITE BLOOD COUNT 4.1 K/uL (4.8-10.8)
--- NOTE | 2017-04-26 17:56 | CP.PCM.PN ---
Subjective - Date & Time of Evaluation Date of Evaluation: 04/26/17 Time of Evaluation: 03:20 - Subjective Subjective: uncontrolled IDDM , hypoglycemia Objective - Vital Signs/Intake and Output Vital Signs (last 24 hours): Temp Pulse Resp BP Pulse Ox 97.4 F L 74 20 151/73 H 98 04/26/17 16:09 04/26/17 16:09 04/26/17 16:09 04/26/17 16:09 04/26/17 16:09 - Medications Medications: Current Medications Famotidine (Pepcid) 20 mg PO DAILY [facility] Last Admin: 04/26/17 10:27 Dose: 20 mg Heparin Sodium (Porcine) (Heparin) 5,000 units SC Q8 [facility] Last Admin: 04/26/17 14:02 Dose: 5,000 units Sodium Chloride (Sodium Chloride 0.9%) 1,000 mls @ 80 mls/hr IV .[id number] [facility] Last Admin: 04/26/17 11:10 Dose: 80 mls/hr Insulin Aspart (Novolog Mix 70/30 (70/30 Units/Ml)) 20 units SC TIDPC [facility] Last Admin: 04/26/17 14:20 Dose: 20 units Insulin Human Regular (Novolin R) 0 unit SC ACHS [facility] PRN Reason: Protocol Last Admin: 04/26/17 12:30 Dose: 2 unit Lorazepam (Ativan) 0.5 mg PO BID [facility] Last Admin: 04/26/17 10:27 Dose: 0.5 mg Tacrolimus (Prograf Cap) 1 mg PO Q12 [facility] Last Admin: 04/26/17 10:27 Dose: 1 mg Vancomycin HCl (Vancocin (Oral Or Rectal Use)) 125 mg PO QID [facility] Stop: 05/04/17 22:01 Last Admin: 04/26/17 14:03 Dose: 125 mg - Labs Labs: 04/26/17 17:28 04/26/17 00:40 Assessment and Plan (1) Hypoglycemia due to insulin Assessment & Plan: Endocrine consult f/u reason for consult: hypoglycemia /uncontrolled diabetes Source: patient & chart review Ms. Mckenna is 77 y/o admitted for flu like symtoms , on immunosupressive thyrapy for liver trasplant , on antibiotics as per pt. has DM x 30 years (-) neuropathy , (-) retinopathy , (-) nephropathy (-) CAD (-) PVD outpatient diabetes management regimen : NPH 10 units bid & humalog 6 units tid blood glucose log : today 160-200 last 82 no poglycemia Allergy NKDA Past medical history: hep c Past surgical history: s/p liver trasplant & CS Psychiatry history: (+) psychiatry disorder Social history : denies smoking , ETOH use or illicit drug use Family history : father with diabetes ROS: Constitutional: denies fever,(+) tiredness/weakness. HEENT: denies earache, change in voice .Respiratory: (+) cough, sob . CVS :no chest pain, no palpitations . Abdomen: no abdominal pain, no nausea /vomiting, no change bowel movement. 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 Extremities: no edema, no tremors. Skin: no itching, no rash Physical exam Well-developed AAO x3 , ,NAD on contact isolation for c-diff VSS HEENT: norm cephalic, atraumatic, no lid lag , no exophthalmos NECK: supple, no palpable lymphadenopathy THYROID: no palpable thyromegaly, not tender CHEST: fair air entry, bilateral, CVS: S1,S2 ABDOMEN: bowel sound present, benign, obese, no wide purple striae , no bruises EXTREMITIES: no edema, clubbing or cyanosis, no palpable hand tremors Skin: acanthosis nigricans lab: a1c 8.3 , TSH 3.80 03/2017 cr 1.1, urine 3+ glucose 10/2016 tsh 2.90 , a1c 8.9 Assessment sever symptomatic hypoglycemia , resolved uncontrolled IDDM flu like symtoms /gram (+) septicemia , c-diff s/p liver trasplant on immunosuppressive therpay plan decrease Novolin 70/30 18 units tid with meals , if eat > 60% continue Novoloin R low dose coverage, no 3 am coverage we will follow with you. Status: Acute (2) Diabetes mellitus, insulin dependent (IDDM), uncontrolled Status: Acute (3) Influenza-like illness Status: Acute (4) S/P liver transplant Status: Acute (5) Gram positive septicemia Status: Acute
[2017-04-26] MEDS ORDERED: (Novolog Mix 70/30) Insulin Aspart/Insulin Aspar 100 units/ml SC SCH (18:15)
[2017-04-26 19:52] LABS: HEMOGLOBIN 10.4 g/dL (11.0-16.0); MEAN CELL VOLUME 86.4 fL (81.0-99.0); MEAN CORPUSCULAR HEMOGLOBIN 29.4 pg (27.0-31.0); MEAN PLATELET VOLUME 8.1 fL (7.2-11.7); RBC 3.53 Mil/uL (3.80-5.20); WHITE BLOOD COUNT 3.8 K/uL (4.8-10.8)
[2017-04-26 20:05] LABS: CALCIUM 9.2 mg/dl (8.6-10.4)
[2017-04-27] MEDS: (Novolin R) Insulin Human Regular 100 units/ml vial SC SCH ×4 (07:30→22:33)
[2017-04-27] MEDS: Vancomycin 125 MG/5 ML SOLN (ORAL/RECTAL) PO SCH ×3 (09:54→19:56)
[2017-04-27] MEDS: (Novolog Mix 70/30) Insulin Aspart/Insulin Aspar 100 units/ml SC SCH ×4 (09:57→18:50)
--- NOTE | 2017-04-27 11:54 | PCM.PYCHPN ---
Psychiatric Progress Note - Psychiatric Progress Note Patient seen today, length of contact: 16 min Patient Chief Complaint: I need to get away from my neighbors; they give me drugs making me sick Problems Identified/Issues Discussed: Psychiatry Note for Dr. Bella's Service Chart reviewed and case discussed with nurse and case management. Patient was seen and examined at bedside. Patient continues to be delusional. She is preoccupied with the idea that the lady upstairs continues to send drugs through the ceiling into her mouth and that is what is making her sick. She does not feel safe at home, and she believes this is also why her liver is messed up. She wants her daughter to help her find another apartment. Support and Psychoeducation provided. Medication Change: Yes Medical Record Reviewed: Yes Mental Status Examination - Cognitive Function Orientation: Person, Place, Situation, Time Memory: Impaired Attention: WNL Concentration: Poor Association: WNL Fund of Knowledge: Poor - Mood Mood: Anxious - Affect Affect: Constricted - Speech Speech: Appropriate - Formal Thought Process Formal Thought Process: Hallucinations, Delusions, Paranoia - Suicidal Ideation Suicidal Ideation: No - Homicidal Ideation Homicidal Ideation: No Goal/Treatment Plan - Goal/Treatment Plan Need for Continued Stay: Severe functional impairment, Other (medical) Progress Toward Problem(s) and Goals/Treatment Plan: Delusional Disorder -Abilify 2.5 mg by mouth at night for psychotic symptoms -Continue Ativan 0.5 twice a day for now but that needs to be tapered off as well in the future, again due to her age and risk of falls and memory problems -Support and psychoeducation -Patient's daughter may need to get guardianship or power of trade mark attorney as the pt will likely need [place] [facility] placement to avoid being evicted from her home -Consider [facility] admission too in [facility]. It is voluntary and she needs to sign a consent DW Dr. Bella, Grace Orantes DO, PGY-1 - Smoking Cessation Smoking Cessation Initiated: No
[2017-04-27] MEDS: Sodium Chloride 0.9% 1,000 ML IV SCH (12:00)
[2017-04-27] MEDS ORDERED: traZODone 25 mg Tab PO PRN (12:39)
--- NOTE | 2017-04-27 14:07 | CP.PCM.PN ---
Subjective - Date & Time of Evaluation Date of Evaluation: 04/27/17 Time of Evaluation: 14:07 - Subjective Subjective: AFEBRILE, FEELING BETTER DENIES COUGH OR SHORTNESS OF BREATH C/O dIARRHEA STOOLS +VE FOR C.DIFFICILE TOXIN. ON PO VANCOMYCIN. LABS REVIEWED. wbc 3.8 H/H STABLE pLATELETS 85. cREATININE 1.4-IMPROVING BLOOD SUGARS HIGH LFTS NORMAL TRANSAMINASES, ALKALINE- PHOSPHATASE 133 IMPROVING. HEPATITIS C -VE Objective - Vital Signs/Intake and Output Vital Signs (last 24 hours): Temp Pulse Resp BP Pulse Ox 97.9 F 88 20 153/83 H 96 04/27/17 09:42 04/27/17 09:42 04/27/17 09:42 04/27/17 09:42 04/27/17 09:42 - Medications Medications: Current Medications Aripiprazole (Abilify) 2.5 mg PO 1800 [facility] Famotidine (Pepcid) 20 mg PO DAILY [facility] Last Admin: 04/27/17 09:53 Dose: 20 mg Heparin Sodium (Porcine) (Heparin) 5,000 units SC Q8 [facility] Last Admin: 04/27/17 05:24 Dose: 5,000 units Sodium Chloride (Sodium Chloride 0.9%) 1,000 mls @ 80 mls/hr IV .[id number] [facility] Last Admin: 04/27/17 12:00 Dose: Not Given Insulin Aspart (Novolog Mix 70/30 (70/30 Units/Ml)) 10 units SC TIDPC [facility] Last Admin: 04/27/17 13:49 Dose: Not Given Insulin Human Regular (Novolin R) 0 unit SC ACHS [facility] PRN Reason: Protocol Last Admin: 04/27/17 11:41 Dose: 5 unit Lorazepam (Ativan) 0.5 mg PO BID [facility] Last Admin: 04/27/17 09:53 Dose: 0.5 mg Tacrolimus (Prograf Cap) 1 mg PO Q12 [facility] Last Admin: 04/27/17 09:53 Dose: 1 mg Trazodone HCl (Desyrel) 25 mg PO HS PRN PRN Reason: Insomnia Vancomycin HCl (Vancocin (Oral Or Rectal Use)) 125 mg PO QID [facility] Stop: 05/04/17 22:01 Last Admin: 04/27/17 09:54 Dose: 125 mg - Labs Labs: 04/26/17 19:45 04/26/17 19:45 - Constitutional Appears: No Acute Distress, Cachectic, Chronically Ill - Head Exam Head Exam: NORMAL INSPECTION - Eye Exam Eye Exam: EOMI, PERRL - ENT Exam ENT Exam: Normal Oropharynx - Neck Exam Neck Exam: Normal Inspection - Respiratory Exam Respiratory Exam: Clear to Ausculation Bilateral - Cardiovascular Exam Cardiovascular Exam: REGULAR RHYTHM, +S1, +S2 - GI/Abdominal Exam GI & Abdominal Exam: Soft, Normal Bowel Sounds - Extremities Exam Extremities Exam: absent: Calf Tenderness, Pedal Edema - Neurological Exam Neurological Exam: Awake, CN II-XII Intact, Oriented x3 - Psychiatric Exam Psychiatric exam: Normal Mood - Skin Skin Exam: Normal Color, Warm Assessment and Plan (1) C. difficile colitis Assessment & Plan: patient on by mouth vancomycin 125 mg 4 times a day for 10 days.04/24/17 Status: Acute (2) Influenza-like illness Assessment & Plan: much improved. Status: Acute (3) Anxiety Status: Acute (4) Diabetes mellitus, insulin dependent (IDDM), uncontrolled Assessment & Plan: patient has hyperglycemia ? noncompliance with diet vs meds ?Abilify-also known to cause hyperglycemia.. To discuss with endocrinology/and psychiatry. Status: Acute (5) S/P liver transplant Status: Acute (6) Gram positive septicemia Status: Acute (7) Vaginitis due to Chrissy Status: Acute (8) Drug-induced leukopenia Assessment & Plan: patient noted to have leukopenia and thrombocytopenia.. ? Drug-induced ? Abilify - known to cause agranulocytopenia, leukopenia. To discuss with psychiatry. Status: Acute
[2017-04-27] MEDS: ARIPIPRAZOLE 2.5 MG PO SCH (18:50)
[2017-04-27] MEDS ORDERED: traZODone 25 mg Tab PO SCH (22:00)
--- NOTE | 2017-04-27 22:55 | CP.PCM.PN ---
Objective - Vital Signs/Intake and Output Vital Signs (last 24 hours): Temp Pulse Resp BP Pulse Ox 98.8 F 94 H 97 H 134/79 96 04/27/17 16:37 04/27/17 16:37 04/27/17 16:37 04/27/17 16:37 04/27/17 09:42 Intake and Output: 04/27/17 04/28/17 18:59 06:59 Intake Total 400 Balance 400 - Medications Medications: Current Medications Aripiprazole (Abilify) 2.5 mg PO 1800 [facility] Last Admin: 04/27/17 18:50 Dose: 2.5 mg Famotidine (Pepcid) 20 mg PO DAILY [facility] Last Admin: 04/27/17 09:53 Dose: 20 mg Heparin Sodium (Porcine) (Heparin) 5,000 units SC Q8 [facility] Last Admin: 04/27/17 21:18 Dose: 5,000 units Insulin Aspart (Novolog Mix 70/30 (70/30 Units/Ml)) 10 units SC TIDPC [facility] Last Admin: 04/27/17 18:50 Dose: 10 units Insulin Human Regular (Novolin R) 0 unit SC ACHS [facility] PRN Reason: Protocol Last Admin: 04/27/17 22:33 Dose: Not Given Lorazepam (Ativan) 0.5 mg PO BID [facility] Last Admin: 04/27/17 18:50 Dose: 0.5 mg Tacrolimus (Prograf Cap) 1 mg PO Q12 [facility] Last Admin: 04/27/17 21:18 Dose: 1 mg Trazodone HCl (Desyrel) 25 mg PO HS PRN PRN Reason: Insomnia - Labs Labs: 04/26/17 19:45 04/26/17 19:45 Assessment and Plan (1) Gram positive septicemia Status: Acute (2) Hepatitis C, chronic Status: Acute (3) Influenza-like illness Status: Acute (4) Delusion Status: Acute (5) Depression Status: Acute (6) Diabetes mellitus, insulin dependent (IDDM), uncontrolled Status: Acute (7) Hypertension Status: Chronic (8) 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
[2017-04-28 08:13] LABS: BLOOD UREA NITROGEN 13 mg/dL (7-17); CALCIUM 8.5 mg/dl (8.6-10.4); GFR AFRICAN-AMERICAN > 60; GFR NON-AFRICAN AMERICAN > 60
[2017-04-28] MEDS: (Novolin R) Insulin Human Regular 100 units/ml vial SC SCH ×4 (08:25→21:41)
[2017-04-28] MEDS: (Novolog Mix 70/30) Insulin Aspart/Insulin Aspar 100 units/ml SC SCH ×3 (09:15→18:19)
[2017-04-28] MEDS: Vancomycin 125 MG/5 ML SOLN (ORAL/RECTAL) PO SCH ×3 (13:42→21:37)
[2017-04-28] MEDS: ARIPIPRAZOLE 2.5 MG PO SCH (18:19)
[2017-04-28 18:48] LABS: URINE BILIRUBIN NEGATIVE (NEGATIVE); URINE COLOR YELLOW (YELLOW); URINE GLUCOSE (UA) 3+ mg/dL (Normal)
[2017-04-28 18:49] LABS: URINE BACTERIA RARE (<OCC); URINE BLOOD NEGATIVE (NEGATIVE); URINE CLARITY Clear (Clear); URINE LEUKOCYTE ESTERASE NEGATIVE Leu/uL (Negative); URINE NITRATE NEGATIVE (NEGATIVE); URINE PROTEIN 1+ mg/dL (NEGATIVE); URINE UROBILINOGEN Normal mg/dL (0.2-1.0)
--- NOTE | 2017-04-28 19:26 | CP.PCM.PN ---
Subjective - Date & Time of Evaluation Date of Evaluation: 04/28/17 Time of Evaluation: 19:26 - Subjective Subjective: AFEBRILE, FEELING BETTER DENIES COUGH OR SHORTNESS OF BREATH STILL COMPLAINS OF SMALL LOOSE BM S FEW TIMES STOOLS +VE FOR C.DIFFICILE TOXIN. ON PO VANCOMYCIN. Objective - Vital Signs/Intake and Output Vital Signs (last 24 hours): Temp Pulse Resp BP Pulse Ox 98.4 F 93 H 20 158/85 H 98 04/28/17 16:14 04/28/17 18:20 04/28/17 16:14 04/28/17 18:20 04/28/17 16:14 Intake and Output: 04/28/17 04/29/17 18:59 06:59 Intake Total 400 Balance 400 - Medications Medications: Current Medications Aripiprazole (Abilify) 2.5 mg PO 1800 [facility] Last Admin: 04/28/17 18:19 Dose: 2.5 mg Clonidine HCl (Catapres) 0.1 mg PO BID [facility] Last Admin: 04/28/17 18:18 Dose: 0.1 mg Famotidine (Pepcid) 20 mg PO DAILY [facility] Last Admin: 04/28/17 10:36 Dose: 20 mg Heparin Sodium (Porcine) (Heparin) 5,000 units SC Q8 [facility] Last Admin: 04/28/17 13:42 Dose: 5,000 units Insulin Aspart (Novolog Mix 70/30 (70/30 Units/Ml)) 10 units SC TIDPC [facility] Last Admin: 04/28/17 18:19 Dose: 10 units Insulin Glargine (Lantus) 8 unit SC HS [facility] Insulin Human Regular (Novolin R) 0 unit SC ACHS [facility] PRN Reason: Protocol Last Admin: 04/28/17 18:19 Dose: 1 unit Lorazepam (Ativan) 0.5 mg PO BID [facility] Last Admin: 04/28/17 18:18 Dose: 0.5 mg Tacrolimus (Prograf Cap) 1 mg PO Q12 [facility] Last Admin: 04/28/17 11:26 Dose: 1 mg Temazepam (Restoril) 30 mg PO HS PRN PRN Reason: Insomnia Vancomycin HCl (Vancocin (Oral Or Rectal Use)) 125 mg PO QID [facility] Last Admin: 04/28/17 18:33 Dose: 125 mg - Labs Labs: 04/26/17 19:45 04/28/17 06:52 - Constitutional Appears: No Acute Distress, Cachectic, Chronically Ill - Head Exam Head Exam: NORMAL INSPECTION - Eye Exam Eye Exam: EOMI, PERRL - ENT Exam ENT Exam: Normal Oropharynx - Respiratory Exam Respiratory Exam: Clear to Ausculation Bilateral - Cardiovascular Exam Cardiovascular Exam: REGULAR RHYTHM, +S1, +S2 - GI/Abdominal Exam GI & Abdominal Exam: Soft, Normal Bowel Sounds. absent: Tenderness - Extremities Exam Extremities Exam: absent: Calf Tenderness, Pedal Edema - Neurological Exam Neurological Exam: Awake, CN II-XII Intact, Oriented x3, Reflexes Normal - Psychiatric Exam Psychiatric exam: Normal Mood - Skin Skin Exam: Normal Color, Warm Assessment and Plan (1) C. difficile colitis Assessment & Plan: patient on by mouth vancomycin 125 mg 4 times a day for 10 days.04/24/17 CPM Status: Acute (2) Influenza-like illness Status: Acute (3) Anxiety Status: Acute (4) Diabetes mellitus, insulin dependent (IDDM), uncontrolled Status: Acute (5) S/P liver transplant Status: Acute (6) Gram positive septicemia Status: Acute (7) Vaginitis due to Chrissy Status: Acute (8) Drug-induced leukopenia Status: Acute
--- NOTE | 2017-04-28 21:29 | CP.PCM.PN ---
Subjective - Date & Time of Evaluation Date of Evaluation: 04/28/17 Time of Evaluation: 21:26 - Subjective Subjective: uncontrolled IDDM with hypoglycemia Objective - Vital Signs/Intake and Output Vital Signs (last 24 hours): Temp Pulse Resp BP Pulse Ox 98.4 F 93 H 20 158/85 H 98 04/28/17 16:14 04/28/17 18:20 04/28/17 16:14 04/28/17 18:20 04/28/17 16:14 Intake and Output: 04/28/17 04/29/17 18:59 06:59 Intake Total 400 Balance 400 - Medications Medications: Current Medications Aripiprazole (Abilify) 2.5 mg PO 1800 [facility] Last Admin: 04/28/17 18:19 Dose: 2.5 mg Clonidine HCl (Catapres) 0.1 mg PO BID [facility] Last Admin: 04/28/17 18:18 Dose: 0.1 mg Famotidine (Pepcid) 20 mg PO DAILY [facility] Last Admin: 04/28/17 10:36 Dose: 20 mg Heparin Sodium (Porcine) (Heparin) 5,000 units SC Q8 [facility] Last Admin: 04/28/17 13:42 Dose: 5,000 units Insulin Aspart (Novolog Mix 70/30 (70/30 Units/Ml)) 10 units SC TIDPC [facility] Last Admin: 04/28/17 18:19 Dose: 10 units Insulin Glargine (Lantus) 8 unit SC HS [facility] Insulin Human Regular (Novolin R) 0 unit SC ACHS [facility] PRN Reason: Protocol Last Admin: 04/28/17 18:19 Dose: 1 unit Lorazepam (Ativan) 0.5 mg PO BID [facility] Last Admin: 04/28/17 18:18 Dose: 0.5 mg Tacrolimus (Prograf Cap) 1 mg PO Q12 [facility] Last Admin: 04/28/17 11:26 Dose: 1 mg Temazepam (Restoril) 30 mg PO HS PRN PRN Reason: Insomnia Vancomycin HCl (Vancocin (Oral Or Rectal Use)) 125 mg PO QID [facility] Last Admin: 04/28/17 18:33 Dose: 125 mg - Labs Labs: 04/26/17 19:45 04/28/17 06:52 Assessment and Plan (1) Hypoglycemia due to insulin Assessment & Plan: Endocrine consult f/u reason for consult: hypoglycemia /uncontrolled diabetes Source: patient & chart review Ms. Mckenna is 77 y/o admitted for flu like symtoms , on immunosupressive thyrapy for liver trasplant , on antibiotics as per pt. has DM x 30 years (-) neuropathy , (-) retinopathy , (-) nephropathy (-) CAD (-) PVD blood glucose log : today 150-300 ,one 93 one episode of 77 yesterday Allergy NKDA Past medical history: hep c Past surgical history: s/p liver trasplant & CS Psychiatry history: (+) psychiatry disorder Social history : denies smoking , ETOH use or illicit drug use Family history : father with diabetes ROS: Constitutional: denies fever,(+) tiredness/weakness. HEENT: denies earache, change in voice .Respiratory: (+) cough, sob . CVS :no chest pain, no palpitations . Abdomen: no abdominal pain, no nausea /vomiting, no change bowel movement. 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 Extremities: no edema, no tremors. Skin: no itching, no rash Physical exam Well-developed AAO x3 , ,NAD on contact isolation for c-diff VSS HEENT: norm cephalic, atraumatic, no lid lag , no exophthalmos NECK: supple, no palpable lymphadenopathy THYROID: no palpable thyromegaly, not tender CHEST: fair air entry, bilateral, CVS: S1,S2 ABDOMEN: bowel sound present, benign, obese, no wide purple striae , no bruises EXTREMITIES: no edema, clubbing or cyanosis, no palpable hand tremors Skin: acanthosis nigricans lab: a1c 8.3 , TSH 3.80 03/2017 cr 1.1, urine 3+ glucose 10/2016 tsh 2.90 , a1c 8.9 Assessment recurrent hypoglycemia uncontrolled IDDM , fragil flu like symtoms /gram (+) septicemia , c-diff s/p liver trasplant on immunosuppressive therpay plan stop Novolin 70/30 start lantus 20 units @ hs bed time snack start regular insulin 8 units tid with meals if eat more than 60% of the meal continue Novoloin R low dose coverage, no 3 am coverage we will follow with you. Status: Acute (2) Diabetes mellitus, insulin dependent (IDDM), uncontrolled Status: Acute (3) Influenza-like illness Status: Acute (4) S/P liver transplant Status: Acute (5) Gram positive septicemia Status: Acute
[2017-04-28] MEDS: (Lantus) Insulin Glargine, Recombinant SC SCH (21:48)
[2017-04-28] MEDS ORDERED: (Lantus) Insulin Glargine, Recombinant SC SCH (22:00)
--- NOTE | 2017-04-28 23:00 | CP.PCM.PN ---
Subjective - Date & Time of Evaluation Date of Evaluation: 04/28/17 Time of Evaluation: 19:45 - Subjective Subjective: Pt seen and evaluated at bedside today Objective - Vital Signs/Intake and Output Vital Signs (last 24 hours): Temp Pulse Resp BP Pulse Ox 98.4 F 93 H 20 158/85 H 98 04/28/17 16:14 04/28/17 18:20 04/28/17 16:14 04/28/17 18:20 04/28/17 16:14 Intake and Output: 04/28/17 04/29/17 18:59 06:59 Intake Total 400 Balance 400 - Medications Medications: Current Medications Aripiprazole (Abilify) 2.5 mg PO 1800 [facility] Last Admin: 04/28/17 18:19 Dose: 2.5 mg Clonidine HCl (Catapres) 0.1 mg PO BID [facility] Last Admin: 04/28/17 18:18 Dose: 0.1 mg Famotidine (Pepcid) 20 mg PO DAILY [facility] Last Admin: 04/28/17 10:36 Dose: 20 mg Heparin Sodium (Porcine) (Heparin) 5,000 units SC Q8 [facility] Last Admin: 04/28/17 21:42 Dose: 5,000 units Insulin Glargine (Lantus) 20 unit SC HS [facility] Last Admin: 04/28/17 21:48 Dose: 20 unit Insulin Human Regular (Novolin R) 0 unit SC ACHS [facility] PRN Reason: Protocol Last Admin: 04/28/17 21:41 Dose: Not Given Insulin Human Regular (Novolin R) 8 unit SC TIDPC [facility] Lorazepam (Ativan) 0.5 mg PO BID [facility] Last Admin: 04/28/17 18:18 Dose: 0.5 mg Tacrolimus (Prograf Cap) 1 mg PO Q12 [facility] Last Admin: 04/28/17 21:41 Dose: 1 mg Temazepam (Restoril) 30 mg PO HS PRN PRN Reason: Insomnia Last Admin: 04/28/17 21:40 Dose: 30 mg Vancomycin HCl (Vancocin (Oral Or Rectal Use)) 125 mg PO QID [facility] Last Admin: 04/28/17 21:37 Dose: 125 mg - Labs Labs: 04/26/17 19:45 04/28/17 06:52 Assessment and Plan (1) Gram positive septicemia Status: Acute (2) Hepatitis C, chronic Status: Acute (3) Influenza-like illness Status: Acute (4) Delusion Status: Acute (5) Depression Status: Acute (6) Diabetes mellitus, insulin dependent (IDDM), uncontrolled Status: Acute (7) Hypertension Status: Chronic (8) 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
[2017-04-29 08:15] LABS: EOS # 0.2 K/uL (0.0-0.7); EOS % 8.4 % (0.0-4.0); LYMPH % 42.9 % (20.0-40.0); MEAN CELL VOLUME 87.1 fL (81.0-99.0); MEAN CORPUSCULAR HEMOGLOBIN 30.5 pg (27.0-31.0); MEAN PLATELET VOLUME 8.2 fL (7.2-11.7); MONO # 0.2 K/uL (0.0-0.8); MONO % 9.8 % (0.0-10.0); NEUT # 0.9 K/uL (1.8-7.0); NEUT % 36.9 % (50.0-75.0); NRBC % 0.1 % (0.0-2.0); RBC 3.62 Mil/uL (3.80-5.20); RED CELL DISTRIBUTION WIDTH 14.6 % (11.5-14.5); WHITE BLOOD COUNT 2.4 K/uL (4.8-10.8)
[2017-04-29] MEDS: (Novolin R) Insulin Human Regular 100 units/ml vial SC SCH ×7 (08:20→22:19)
[2017-04-29 08:59] LABS: ALBUMIN 3.2 g/dL (3.5-5.0); CALCIUM 8.6 mg/dl (8.6-10.4)
[2017-04-29] MEDS: Vancomycin 125 MG/5 ML SOLN (ORAL/RECTAL) PO SCH ×4 (09:15→22:25)
[2017-04-29] MEDS: ARIPIPRAZOLE 2.5 MG PO SCH (17:52)
[2017-04-29] MEDS ORDERED: Bismuth Subsalicylate 262 mg/15 ml Sus (240 ml) PO PRN (18:45)
[2017-04-29 20:29] LABS: FHA IGA 516 IU/mL; FHA IGG 7 IU/mL; PT IGG <1 IU/mL
[2017-04-29] MEDS: (Lantus) Insulin Glargine, Recombinant SC SCH (22:25)
--- NOTE | 2017-04-29 22:59 | CP.PCM.PN ---
Subjective - Date & Time of Evaluation Date of Evaluation: 04/29/17 Time of Evaluation: 22:59 - Subjective Subjective: afebrile, feeling better still mushy stools. states doing better. Objective - Vital Signs/Intake and Output Vital Signs (last 24 hours): Temp Pulse Resp BP Pulse Ox 97.6 F 74 20 129/73 93 L 04/29/17 17:00 04/29/17 17:00 04/29/17 17:00 04/29/17 17:00 04/29/17 17:00 Intake and Output: 04/29/17 04/30/17 18:59 06:59 Intake Total 360 Balance 360 - Medications Medications: Current Medications Aripiprazole (Abilify) 2.5 mg PO 1800 [facility] Last Admin: 04/29/17 17:52 Dose: 2.5 mg Bismuth Subsalicylate (Pepto-Bismol) 262 mg PO BID PRN PRN Reason: Diarrhea Clonidine HCl (Catapres) 0.1 mg PO BID [facility] Last Admin: 04/29/17 17:52 Dose: 0.1 mg Famotidine (Pepcid) 20 mg PO DAILY [facility] Last Admin: 04/29/17 09:16 Dose: 20 mg Insulin Glargine (Lantus) 20 unit SC HS [facility] Last Admin: 04/29/17 22:25 Dose: 20 unit Insulin Human Regular (Novolin R) 0 unit SC ACHS [facility] PRN Reason: Protocol Last Admin: 04/29/17 22:19 Dose: Not Given Insulin Human Regular (Novolin R) 8 unit SC TIDPC [facility] Last Admin: 04/29/17 17:52 Dose: Not Given Lorazepam (Ativan) 0.5 mg PO BID [facility] Last Admin: 04/29/17 17:52 Dose: 0.5 mg Tacrolimus (Prograf Cap) 1 mg PO Q12 [facility] Last Admin: 04/29/17 22:25 Dose: 1 mg Temazepam (Restoril) 30 mg PO HS PRN PRN Reason: Insomnia Last Admin: 04/29/17 22:28 Dose: 30 mg Vancomycin HCl (Vancocin (Oral Or Rectal Use)) 125 mg PO QID [facility] Last Admin: 04/29/17 22:25 Dose: 125 mg - Labs Labs: 04/29/17 07:53 02/07/18 07:53 - Constitutional Appears: No Acute Distress, Cachectic, Chronically Ill - Eye Exam Eye Exam: EOMI, PERRL - ENT Exam ENT Exam: Normal Oropharynx - Neck Exam Neck Exam: Normal Inspection - Respiratory Exam Respiratory Exam: Clear to Ausculation Bilateral - Cardiovascular Exam Cardiovascular Exam: REGULAR RHYTHM, +S1, +S2 - GI/Abdominal Exam GI & Abdominal Exam: Soft, Normal Bowel Sounds. absent: Tenderness - Extremities Exam Extremities Exam: absent: Calf Tenderness, Pedal Edema - Neurological Exam Neurological Exam: Awake, CN II-XII Intact, Normal Gait, Oriented x3, Reflexes Normal - Psychiatric Exam Psychiatric exam: Normal Mood - Skin Skin Exam: Normal Color, Warm Assessment and Plan (1) C. difficile colitis Assessment & Plan: patient on by mouth vancomycin 125 mg 4 times a day for 10 days.04/24/17 -day 6 CPM Status: Acute (2) Influenza-like illness Status: Acute (3) Anxiety Status: Acute (4) Diabetes mellitus, insulin dependent (IDDM), uncontrolled Status: Acute (5) S/P liver transplant Status: Acute (6) Gram positive septicemia Status: Acute (7) Vaginitis due to Chrissy Assessment & Plan: doing better. denies any further discharge. Status: Acute (8) Drug-induced leukopenia Status: Acute
--- NOTE | 2017-04-29 23:42 | CP.PCM.PN ---
Subjective - Date & Time of Evaluation Date of Evaluation: 04/29/17 Time of Evaluation: 17:25 - Subjective Subjective: Pt seen and evaluated ,afebrile, feeling better still mushy stools. states doing better. Objective - Vital Signs/Intake and Output Vital Signs (last 24 hours): Temp Pulse Resp BP Pulse Ox 97.6 F 74 20 129/73 93 L 04/29/17 17:00 04/29/17 17:00 04/29/17 17:00 04/29/17 17:00 04/29/17 17:00 Intake and Output: 04/29/17 04/30/17 18:59 06:59 Intake Total 360 Balance 360 - Medications Medications: Current Medications Aripiprazole (Abilify) 2.5 mg PO 1800 [facility] Last Admin: 04/29/17 17:52 Dose: 2.5 mg Bismuth Subsalicylate (Pepto-Bismol) 262 mg PO BID PRN PRN Reason: Diarrhea Clonidine HCl (Catapres) 0.1 mg PO BID [facility] Last Admin: 04/29/17 17:52 Dose: 0.1 mg Famotidine (Pepcid) 20 mg PO DAILY [facility] Last Admin: 04/29/17 09:16 Dose: 20 mg Insulin Glargine (Lantus) 20 unit SC HS [facility] Last Admin: 04/29/17 22:25 Dose: 20 unit Insulin Human Regular (Novolin R) 0 unit SC ACHS [facility] PRN Reason: Protocol Last Admin: 04/29/17 22:19 Dose: Not Given Insulin Human Regular (Novolin R) 8 unit SC TIDPC [facility] Last Admin: 04/29/17 17:52 Dose: Not Given Lorazepam (Ativan) 0.5 mg PO BID [facility] Last Admin: 04/29/17 17:52 Dose: 0.5 mg Tacrolimus (Prograf Cap) 1 mg PO Q12 [facility] Last Admin: 04/29/17 22:25 Dose: 1 mg Temazepam (Restoril) 30 mg PO HS PRN PRN Reason: Insomnia Last Admin: 04/29/17 22:28 Dose: 30 mg Vancomycin HCl (Vancocin (Oral Or Rectal Use)) 125 mg PO QID [facility] Last Admin: 04/29/17 22:25 Dose: 125 mg - Labs Labs: 04/29/17 07:53 04/29/17 07:53 - Constitutional Appears: No Acute Distress - Head Exam Head Exam: ATRAUMATIC, NORMAL INSPECTION, NORMOCEPHALIC - Eye Exam Eye Exam: EOMI, Normal appearance, PERRL Pupil Exam: NORMAL ACCOMODATION, PERRL - Respiratory Exam Respiratory Exam: Clear to Ausculation Bilateral, NORMAL BREATHING PATTERN - Cardiovascular Exam Cardiovascular Exam: REGULAR RHYTHM, +S1, +S2. absent: Murmur - GI/Abdominal Exam GI & Abdominal Exam: Soft, Normal Bowel Sounds. 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
[2017-04-30] MEDS: (Novolin R) Insulin Human Regular 100 units/ml vial SC SCH ×7 (07:23→21:12)
[2017-04-30] MEDS: Vancomycin 125 MG/5 ML SOLN (ORAL/RECTAL) PO SCH ×4 (09:34→21:22)
[2017-04-30] MEDS: Lactobacillus Acidophilus 500 MU Cap PO SCH ×2 (12:20→18:11)
[2017-04-30] MEDS ORDERED: Dextrose 50% SYRINGE Inj (50 ml) IV STA (15:56)
[2017-04-30] MEDS ORDERED: Dextrose 50% VIAL Inj (50 ml) IV ONE (16:05)
--- NOTE | 2017-04-30 18:02 | CP.PCM.PN ---
Subjective - Date & Time of Evaluation Date of Evaluation: 04/30/17 Time of Evaluation: 17:58 - Subjective Subjective: brittle diabetes Objective - Vital Signs/Intake and Output Vital Signs (last 24 hours): Temp Pulse Resp BP Pulse Ox 97.9 F 71 20 106/69 97 04/30/17 16:16 04/30/17 16:16 04/30/17 16:16 04/30/17 16:16 04/30/17 16:16 Intake and Output: 04/30/17 04/30/17 06:59 18:59 Intake Total 380 Balance 380 - Medications Medications: Current Medications Aripiprazole (Abilify) 2.5 mg PO 1800 [facility] Last Admin: 04/29/17 17:52 Dose: 2.5 mg Bismuth Subsalicylate (Pepto-Bismol) 262 mg PO BID PRN PRN Reason: Diarrhea Clonidine HCl (Catapres) 0.1 mg PO BID [facility] Last Admin: 04/30/17 09:35 Dose: 0.1 mg Famotidine (Pepcid) 20 mg PO DAILY [facility] Last Admin: 04/30/17 09:35 Dose: 20 mg Insulin Glargine (Lantus) 20 unit SC HS [facility] Last Admin: 04/29/17 22:25 Dose: 20 unit Insulin Human Regular (Novolin R) 0 unit SC ACHS [facility] PRN Reason: Protocol Last Admin: 04/30/17 16:28 Dose: Not Given Insulin Human Regular (Novolin R) 5 unit SC TIDPC [facility] Lactobacillus Acidophilus (Bacid Acidophilus) 1 cap PO BID [facility] Last Admin: 04/30/17 12:20 Dose: 1 cap Lorazepam (Ativan) 0.5 mg PO BID [facility] Last Admin: 04/30/17 09:35 Dose: 0.5 mg Metronidazole (Flagyl) 500 mg PO Q8 [facility] Last Admin: 04/30/17 14:20 Dose: 500 mg Tacrolimus (Prograf Cap) 1 mg PO Q12 [facility] Last Admin: 04/30/17 09:34 Dose: 1 mg Temazepam (Restoril) 30 mg PO HS PRN PRN Reason: Insomnia Last Admin: 04/29/17 22:28 Dose: 30 mg Vancomycin HCl (Vancocin (Oral Or Rectal Use)) 125 mg PO QID [facility] Last Admin: 04/30/17 14:20 Dose: 125 mg - Labs Labs: 04/29/17 07:53 04/29/17 07:53 Assessment and Plan (1) Hypoglycemia due to insulin Assessment & Plan: Endocrine consult f/u reason for consult: hypoglycemia /uncontrolled diabetes Source: patient & chart review Ms. Mckenna is 77 y/o admitted for flu like symtoms , on immunosupressive thyrapy for liver trasplant , on antibiotics as per pt. has DM x 30 years (-) neuropathy , (-) retinopathy , (-) nephropathy (-) CAD (-) PVD blood glucose log : today 115-200 , one episode of 29 repeat 65 after glucose is 200 still with diarrhea & aftraid to eat Allergy NKDA Past medical history: hep c Past surgical history: s/p liver trasplant & CS Psychiatry history: (+) psychiatry disorder Social history : denies smoking , ETOH use or illicit drug use Family history : father with diabetes ROS: Constitutional: denies fever,(+) tiredness/weakness. HEENT: denies earache, change in voice .Respiratory: (+) cough, sob . CVS :no chest pain, no palpitations . Abdomen: no abdominal pain, no nausea /vomiting, no change bowel movement. 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 Extremities: no edema, no tremors. Skin: no itching, no rash Physical exam Well-developed AAO x3 , ,NAD on contact isolation for c-diff VSS HEENT: norm cephalic, atraumatic, no lid lag , no exophthalmos NECK: supple, no palpable lymphadenopathy THYROID: no palpable thyromegaly, not tender CHEST: fair air entry, bilateral, CVS: S1,S2 ABDOMEN: bowel sound present, benign, obese, no wide purple striae , no bruises EXTREMITIES: no edema, clubbing or cyanosis, no palpable hand tremors Skin: acanthosis nigricans lab: a1c 8.3 , TSH 3.80 03/2017 cr 1.1, urine 3+ glucose 10/2016 tsh 2.90 , a1c 8.9 Assessment recurrent hypoglycemia uncontrolled IDDM , fragil flu like symtoms /gram (+) septicemia , c-diff s/p liver trasplant on immunosuppressive therpay plan continue lantus 20 units @ hs again bed time snack decrease regular insulin 5 units tid with meals if eat more than 60% of the meal , hold it with dinner today continue Novoloin R low dose coverage, no 3 am coverage we will follow with you. Status: Acute (2) Diabetes mellitus, insulin dependent (IDDM), uncontrolled Status: Acute (3) Influenza-like illness Status: Acute (4) S/P liver transplant Status: Acute (5) Gram positive septicemia Status: Acute
[2017-04-30] MEDS: ARIPIPRAZOLE 2.5 MG PO SCH (18:11)
[2017-04-30] MEDS: (Lantus) Insulin Glargine, Recombinant SC SCH (21:22)
--- NOTE | 2017-04-30 23:37 | CP.PCM.PN ---
Subjective - Date & Time of Evaluation Date of Evaluation: 04/30/17 Time of Evaluation: 18:50 - Subjective Subjective: Pt seen and examined , pt continues to have diarrhea associated with generalized weakness, her C.diff is neg Objective - Vital Signs/Intake and Output Vital Signs (last 24 hours): Temp Pulse Resp BP Pulse Ox 97.9 F 71 20 106/69 97 04/30/17 16:16 04/30/17 16:16 04/30/17 16:16 04/30/17 16:16 04/30/17 16:16 Intake and Output: 04/30/17 05/01/17 18:59 06:59 Intake Total 380 Balance 380 - Medications Medications: Current Medications Aripiprazole (Abilify) 2.5 mg PO 1800 [facility] Last Admin: 04/30/17 18:11 Dose: 2.5 mg Bismuth Subsalicylate (Pepto-Bismol) 262 mg PO BID PRN PRN Reason: Diarrhea Clonidine HCl (Catapres) 0.1 mg PO BID [facility] Last Admin: 04/30/17 18:11 Dose: 0.1 mg Famotidine (Pepcid) 20 mg PO DAILY [facility] Last Admin: 04/30/17 09:35 Dose: 20 mg Gabapentin (Neurontin) 100 mg PO TID [facility] Insulin Glargine (Lantus) 20 unit SC HS [facility] Last Admin: 04/30/17 21:22 Dose: 20 unit Insulin Human Regular (Novolin R) 0 unit SC ACHS [facility] PRN Reason: Protocol Last Admin: 04/30/17 21:12 Dose: Not Given Insulin Human Regular (Novolin R) 5 unit SC TIDPC [facility] Last Admin: 04/30/17 19:49 Dose: Not Given Lactobacillus Acidophilus (Bacid Acidophilus) 1 cap PO BID [facility] Last Admin: 04/30/17 18:11 Dose: 1 cap Lorazepam (Ativan) 0.5 mg PO BID [facility] Last Admin: 04/30/17 18:12 Dose: 0.5 mg Metronidazole (Flagyl) 500 mg PO Q8 [facility] Last Admin: 04/30/17 21:21 Dose: 500 mg Tacrolimus (Prograf Cap) 1 mg PO Q12 [facility] Last Admin: 04/30/17 21:22 Dose: 1 mg Temazepam (Restoril) 30 mg PO HS PRN PRN Reason: Insomnia Last Admin: 04/30/17 21:21 Dose: 30 mg Vancomycin HCl (Vancocin (Oral Or Rectal Use)) 125 mg PO QID [facility] Last Admin: 04/30/17 21:22 Dose: 125 mg - Labs Labs: 04/29/17 07:53 04/29/17 07:53 - Constitutional Appears: No Acute Distress - Head Exam Head Exam: ATRAUMATIC, NORMAL INSPECTION, NORMOCEPHALIC - Eye Exam Eye Exam: EOMI, Normal appearance, PERRL Pupil Exam: NORMAL ACCOMODATION, PERRL - Respiratory Exam Respiratory Exam: Decreased Breath Sounds, Rales, Rhonchi - Cardiovascular Exam Cardiovascular Exam: REGULAR RHYTHM, +S1, +S2. 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
--- NOTE | 2017-04-30 23:54 | CP.PCM.PN ---
Subjective - Date & Time of Evaluation Date of Evaluation: 04/30/17 Time of Evaluation: 23:54 - Subjective Subjective: afebrile, no complaints. labs reviewed; stools repeat -ve C.DIFFICILE. +VE B.PERTUSSIS 1:516 IGA (N =<50 ) Objective - Vital Signs/Intake and Output Vital Signs (last 24 hours): Temp Pulse Resp BP Pulse Ox 97.9 F 71 20 106/69 97 04/30/17 16:16 04/30/17 16:16 04/30/17 16:16 04/30/17 16:16 04/30/17 16:16 Intake and Output: 04/30/17 05/01/17 18:59 06:59 Intake Total 380 Balance 380 - Medications Medications: Current Medications Aripiprazole (Abilify) 2.5 mg PO 1800 [facility] Last Admin: 04/30/17 18:11 Dose: 2.5 mg Bismuth Subsalicylate (Pepto-Bismol) 262 mg PO BID PRN PRN Reason: Diarrhea Clonidine HCl (Catapres) 0.1 mg PO BID [facility] Last Admin: 04/30/17 18:11 Dose: 0.1 mg Famotidine (Pepcid) 20 mg PO DAILY [facility] Last Admin: 04/30/17 09:35 Dose: 20 mg Gabapentin (Neurontin) 100 mg PO TID [facility] Insulin Glargine (Lantus) 20 unit SC HS [facility] Last Admin: 04/30/17 21:22 Dose: 20 unit Insulin Human Regular (Novolin R) 0 unit SC ACHS [facility] PRN Reason: Protocol Last Admin: 04/30/17 21:12 Dose: Not Given Insulin Human Regular (Novolin R) 5 unit SC TIDPC [facility] Last Admin: 04/30/17 19:49 Dose: Not Given Lactobacillus Acidophilus (Bacid Acidophilus) 1 cap PO BID [facility] Last Admin: 04/30/17 18:11 Dose: 1 cap Lorazepam (Ativan) 0.5 mg PO BID [facility] Last Admin: 04/30/17 18:12 Dose: 0.5 mg Metronidazole (Flagyl) 500 mg PO Q8 [facility] Last Admin: 04/30/17 21:21 Dose: 500 mg Tacrolimus (Prograf Cap) 1 mg PO Q12 [facility] Last Admin: 04/30/17 21:22 Dose: 1 mg Temazepam (Restoril) 30 mg PO HS PRN PRN Reason: Insomnia Last Admin: 04/30/17 21:21 Dose: 30 mg Vancomycin HCl (Vancocin (Oral Or Rectal Use)) 125 mg PO QID [facility] Last Admin: 04/30/17 21:22 Dose: 125 mg - Labs Labs: 04/29/17 07:53 04/29/17 07:53 - Constitutional Appears: No Acute Distress, Cachectic - Head Exam Head Exam: NORMAL INSPECTION - Eye Exam Eye Exam: EOMI, PERRL - ENT Exam ENT Exam: Normal Oropharynx - Neck Exam Neck Exam: Normal Inspection - Respiratory Exam Respiratory Exam: Clear to Ausculation Bilateral - Cardiovascular Exam Cardiovascular Exam: REGULAR RHYTHM, +S1, +S2 - GI/Abdominal Exam GI & Abdominal Exam: Soft, Normal Bowel Sounds. absent: Tenderness - Extremities Exam Extremities Exam: absent: Calf Tenderness, Pedal Edema - Neurological Exam Neurological Exam: Awake, CN II-XII Intact, Oriented x3, Reflexes Normal - Psychiatric Exam Psychiatric exam: Normal Mood - Skin Skin Exam: Normal Color, Warm Assessment and Plan (1) Bordetella pertussis Assessment & Plan: PT TO GET Tdap 0.5ml IM IN DELTOID MUSCLE UPPER ARM. Status: Acute (2) C. difficile colitis Assessment & Plan: patient on by mouth vancomycin 125 mg 4 times a day for 10 days.04/24/17 -day 7 CPM Status: Acute (3) Influenza-like illness Status: Acute (4) Anxiety Status: Acute (5) Diabetes mellitus, insulin dependent (IDDM), uncontrolled Status: Acute (6) S/P liver transplant Status: Acute (7) Gram positive septicemia Status: Acute (8) Vaginitis due to Chrissy Status: Acute (9) Drug-induced leukopenia Status: Acute
[2017-05-01] MEDS: (Novolin R) Insulin Human Regular 100 units/ml vial SC SCH ×7 (07:17→22:08)
[2017-05-01 08:19] LABS: BASO % 1.9 % (0.0-2.0); EOS # 0.2 K/uL (0.0-0.7); EOS % 7.9 % (0.0-4.0); HEMOGLOBIN 10.9 g/dL (11.0-16.0); LYMPH # 0.9 K/uL (1.0-4.3); LYMPH % 35.5 % (20.0-40.0); MEAN CELL VOLUME 86.3 fL (81.0-99.0); MEAN CORPUSCULAR HEMOGLOBIN 29.5 pg (27.0-31.0); MEAN CORPUSCULAR HGB CONC 34.1 g/dL (33.0-37.0); MEAN PLATELET VOLUME 8.3 fL (7.2-11.7); MONO # 0.3 K/uL (0.0-0.8); NEUT # 1.1 K/uL (1.8-7.0); NEUT % 43.7 % (50.0-75.0); NRBC % 0.1 % (0.0-2.0); RBC 3.7 Mil/uL (3.80-5.20); RED CELL DISTRIBUTION WIDTH 14.4 % (11.5-14.5); WHITE BLOOD COUNT 2.5 K/uL (4.8-10.8)
[2017-05-01 08:45] LABS: ALBUMIN 3.3 g/dL (3.5-5.0)
[2017-05-01] MEDS: Lactobacillus Acidophilus 500 MU Cap PO SCH ×2 (10:12→17:26)
[2017-05-01] MEDS: Vancomycin 125 MG/5 ML SOLN (ORAL/RECTAL) PO SCH ×4 (10:14→22:09)
--- NOTE | 2017-05-01 10:58 | PCM.PYCHPN ---
Psychiatric Progress Note - Psychiatric Progress Note Patient seen today, length of contact: 16 min Patient Chief Complaint: I need to get away from my neighbors; they give me drugs making me sick Problems Identified/Issues Discussed: Psychiatry Note for Dr. Bella's Service Chart reviewed and case discussed with nurse and case management. Patient was seen and examined at bedside. Patient continues to be delusional. She is still preoccupied with the idea that the lady upstairs continues to send drugs through the ceiling. Support and Psychoeducation provided. Medication Change: Yes Medical Record Reviewed: Yes Mental Status Examination - Cognitive Function Orientation: Person, Place, Situation, Time Memory: Impaired Attention: WNL Concentration: Poor Association: WNL Fund of Knowledge: Poor - Mood Mood: Anxious - Affect Affect: Constricted - Speech Speech: Appropriate - Formal Thought Process Formal Thought Process: Hallucinations, Delusions, Paranoia - Suicidal Ideation Suicidal Ideation: No - Homicidal Ideation Homicidal Ideation: No Goal/Treatment Plan - Goal/Treatment Plan Need for Continued Stay: Severe functional impairment, Other (medical) Progress Toward Problem(s) and Goals/Treatment Plan: Delusional Disorder -Abilify 2.5 mg by mouth at night for psychotic symptoms -Continue Ativan 0.5 twice a day for now but that needs to be tapered off as well in the future, again due to her age and risk of falls and memory problems -Support and psychoeducation -Patient's daughter may need to get guardianship or power of branch credit counselor as the pt will likely need [facility] placement to avoid being evicted from her home -Consider [facility] admission too in [facility]. It is voluntary and she needs to sign a consent DW Dr. Bella, Grace Orantes DO, PGY-1
--- NOTE | 2017-05-01 15:03 | CP.PCM.PN ---
Subjective - Date & Time of Evaluation Date of Evaluation: 05/01/17 Time of Evaluation: 14:59 - Subjective Subjective: PATIENT IS SEEN AND EXAMINED AT THE BEDSIDE LUNG SOUND CLEAR BLOOD SUGAR UNDER CONTROL---HEEL PADDER ON THE CASE DR ORTEGA ---HELP APPRECIATED IN PATIENT WAS SEEN BY PSYCHIATRIST DR DILL --HELP APPRECIATED AND RECOMMEND PATIENT TO GO TO [facility] PATIENT HAVING NORMAL BOWEL MOVEMENT -- STOOL FOR C DIFF WAS SENT AND REPEAT WAS NEG --PATIENT HAD FLAGYL AND VANCO FOR 10 DAYS VITALS ARE NORMAL ; PATIENT IS AFEBRILAND NO SIGN OF DISTRESS NOTED PATIENT IS CLEAR MEDICALLY TO BE DISCHARGE TO [facility] Objective - Vital Signs/Intake and Output Vital Signs (last 24 hours): Temp Pulse Resp BP Pulse Ox 98 F 78 20 124/72 97 05/01/17 07:00 05/01/17 07:00 05/01/17 07:00 05/01/17 07:00 05/01/17 07:00 Intake and Output: 05/01/17 05/01/17 06:59 18:59 Intake Total 400 Balance 400 - Medications Medications: Current Medications Aripiprazole (Abilify) 2.5 mg PO 1800 [facility] Last Admin: 04/30/17 18:11 Dose: 2.5 mg Bismuth Subsalicylate (Pepto-Bismol) 262 mg PO BID PRN PRN Reason: Diarrhea Clonidine HCl (Catapres) 0.1 mg PO BID [facility] Last Admin: 05/01/17 10:13 Dose: 0.1 mg Famotidine (Pepcid) 20 mg PO DAILY [facility] Last Admin: 05/01/17 10:14 Dose: 20 mg Gabapentin (Neurontin) 100 mg PO TID [facility] Last Admin: 05/01/17 13:23 Dose: 100 mg Insulin Glargine (Lantus) 20 unit SC HS [facility] Last Admin: 04/30/17 21:22 Dose: 20 unit Insulin Human Regular (Novolin R) 0 unit SC ACHS [facility] PRN Reason: Protocol Last Admin: 05/01/17 12:10 Dose: 2 unit Insulin Human Regular (Novolin R) 5 unit SC TIDPC [facility] Last Admin: 05/01/17 13:23 Dose: 5 unit Lactobacillus Acidophilus (Bacid Acidophilus) 1 cap PO BID [facility] Last Admin: 05/01/17 10:12 Dose: 1 cap Lorazepam (Ativan) 0.5 mg PO BID [facility] Last Admin: 05/01/17 10:12 Dose: 0.5 mg Metronidazole (Flagyl) 500 mg PO Q8 [facility] Last Admin: 05/01/17 13:23 Dose: 500 mg Tacrolimus (Prograf Cap) 1 mg PO Q12 [facility] Last Admin: 05/01/17 10:55 Dose: 1 mg Temazepam (Restoril) 30 mg PO HS PRN PRN Reason: Insomnia Last Admin: 04/30/17 21:21 Dose: 30 mg Vancomycin HCl (Vancocin (Oral Or Rectal Use)) 125 mg PO QID [facility] Last Admin: 05/01/17 13:23 Dose: 125 mg - Labs Labs: 05/01/17 08:05 05/01/17 08:05
[2017-05-01] MEDS: ARIPIPRAZOLE 2.5 MG PO SCH (18:57)
[2017-05-01] MEDS: (Lantus) Insulin Glargine, Recombinant SC SCH (22:15)
--- NOTE | 2017-05-01 22:29 | CP.PCM.PN ---
Subjective - Date & Time of Evaluation Date of Evaluation: 05/01/17 Time of Evaluation: 10:00 - Subjective Subjective: IDDM Objective - Vital Signs/Intake and Output Vital Signs (last 24 hours): Temp Pulse Resp BP Pulse Ox 98.1 F 74 20 118/75 96 05/01/17 17:23 05/01/17 17:23 05/01/17 17:23 05/01/17 17:23 05/01/17 17:23 Intake and Output: 05/01/17 05/02/17 18:59 06:59 Intake Total 400 Balance 400 - Medications Medications: Current Medications Aripiprazole (Abilify) 2.5 mg PO 1800 [facility] Last Admin: 05/01/17 18:57 Dose: 2.5 mg Bismuth Subsalicylate (Pepto-Bismol) 262 mg PO BID PRN PRN Reason: Diarrhea Clonidine HCl (Catapres) 0.1 mg PO BID [facility] Last Admin: 05/01/17 17:27 Dose: 0.1 mg Famotidine (Pepcid) 20 mg PO DAILY [facility] Last Admin: 05/01/17 10:14 Dose: 20 mg Gabapentin (Neurontin) 100 mg PO TID [facility] Last Admin: 05/01/17 17:26 Dose: 100 mg Insulin Glargine (Lantus) 20 unit SC HS [facility] Last Admin: 05/01/17 22:15 Dose: 20 unit Insulin Human Regular (Novolin R) 0 unit SC ACHS [facility] PRN Reason: Protocol Last Admin: 05/01/17 22:08 Dose: 2 unit Lactobacillus Acidophilus (Bacid Acidophilus) 1 cap PO BID [facility] Last Admin: 05/01/17 17:26 Dose: 1 cap Lorazepam (Ativan) 0.5 mg PO BID [facility] Last Admin: 05/01/17 17:26 Dose: 0.5 mg Metronidazole (Flagyl) 500 mg PO Q8 [facility] Last Admin: 05/01/17 22:09 Dose: 500 mg Tacrolimus (Prograf Cap) 1 mg PO Q12 [facility] Last Admin: 05/01/17 22:16 Dose: 1 mg Temazepam (Restoril) 30 mg PO HS PRN PRN Reason: Insomnia Last Admin: 04/30/17 21:21 Dose: 30 mg Vancomycin HCl (Vancocin (Oral Or Rectal Use)) 125 mg PO QID [facility] Last Admin: 05/01/17 22:09 Dose: 125 mg - Labs Labs: 05/01/17 08:05 05/01/17 08:05 Assessment and Plan (1) Hypoglycemia due to insulin Assessment & Plan: ndocrine consult f/u reason for consult: hypoglycemia /uncontrolled diabetes Source: patient & chart review Ms. Mckenna is 77 y/o admitted for flu like symtoms , on immunosupressive thyrapy for liver trasplant , on antibiotics as per pt. has DM x 30 years (-) neuropathy , (-) retinopathy , (-) nephropathy (-) CAD (-) PVD blood glucose log : today 200's , 2 episodes of 60& 70 Allergy NKDA Past medical history: hep c Past surgical history: s/p liver trasplant & CS Psychiatry history: (+) psychiatry disorder Social history : denies smoking , ETOH use or illicit drug use Family history : father with diabetes ROS: Constitutional: denies fever,(+) tiredness/weakness. HEENT: denies earache, change in voice .Respiratory: (+) cough, sob . CVS :no chest pain, no palpitations . Abdomen: no abdominal pain, no nausea /vomiting, no change bowel movement. 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 Extremities: no edema, no tremors. Skin: no itching, no rash Physical exam Well-developed AAO x3 , ,NAD on contact isolation for c-diff VSS HEENT: norm cephalic, atraumatic, no lid lag , no exophthalmos NECK: supple, no palpable lymphadenopathy THYROID: no palpable thyromegaly, not tender CHEST: fair air entry, bilateral, CVS: S1,S2 ABDOMEN: bowel sound present, benign, obese, no wide purple striae , no bruises EXTREMITIES: no edema, clubbing or cyanosis, no palpable hand tremors Skin: acanthosis nigricans lab: a1c 8.3 , TSH 3.80 03/2017 cr 1.1, urine 3+ glucose 10/2016 tsh 2.90 , a1c 8.9 Assessment recurrent hypoglycemia uncontrolled IDDM , fragil flu like symtoms /gram (+) septicemia , c-diff s/p liver trasplant on immunosuppressive therpay plan continue lantus 20 units @ hs again bed time snack stop regular insulin 5 units tid with meals continue Novoloin R low dose coverage, no 3 am coverage Status: Acute (2) Diabetes mellitus, insulin dependent (IDDM), uncontrolled Status: Acute (3) Influenza-like illness Status: Acute (4) S/P liver transplant Status: Acute (5) Gram positive septicemia Status: Acute
--- NOTE | 2017-05-01 22:45 | CP.PCM.PN ---
Subjective - Date & Time of Evaluation Date of Evaluation: 05/01/17 Time of Evaluation: 17:55 - Subjective Subjective: Pt seen & evalauted. PT IS FOR TRANSFER TO [facility] Objective - Vital Signs/Intake and Output Vital Signs (last 24 hours): Temp Pulse Resp BP Pulse Ox 98.1 F 74 20 118/75 96 05/01/17 17:23 05/01/17 17:23 05/01/17 17:23 05/01/17 17:23 05/01/17 17:23 Intake and Output: 05/01/17 05/02/17 18:59 06:59 Intake Total 400 Balance 400 - Medications Medications: Current Medications Aripiprazole (Abilify) 2.5 mg PO 1800 [facility] Last Admin: 05/01/17 18:57 Dose: 2.5 mg Bismuth Subsalicylate (Pepto-Bismol) 262 mg PO BID PRN PRN Reason: Diarrhea Clonidine HCl (Catapres) 0.1 mg PO BID [facility] Last Admin: 05/01/17 17:27 Dose: 0.1 mg Famotidine (Pepcid) 20 mg PO DAILY [facility] Last Admin: 05/01/17 10:14 Dose: 20 mg Gabapentin (Neurontin) 100 mg PO TID [facility] Last Admin: 05/01/17 17:26 Dose: 100 mg Insulin Glargine (Lantus) 20 unit SC HS [facility] Last Admin: 05/01/17 22:15 Dose: 20 unit Insulin Human Regular (Novolin R) 0 unit SC ACHS [facility] PRN Reason: Protocol Last Admin: 05/01/17 22:08 Dose: 2 unit Lactobacillus Acidophilus (Bacid Acidophilus) 1 cap PO BID [facility] Last Admin: 05/01/17 17:26 Dose: 1 cap Lorazepam (Ativan) 0.5 mg PO BID [facility] Last Admin: 05/01/17 17:26 Dose: 0.5 mg Metronidazole (Flagyl) 500 mg PO Q8 [facility] Last Admin: 05/01/17 22:09 Dose: 500 mg Tacrolimus (Prograf Cap) 1 mg PO Q12 [facility] Last Admin: 05/01/17 22:16 Dose: 1 mg Temazepam (Restoril) 30 mg PO HS PRN PRN Reason: Insomnia Last Admin: 04/30/17 21:21 Dose: 30 mg Vancomycin HCl (Vancocin (Oral Or Rectal Use)) 125 mg PO QID [facility] Last Admin: 05/01/17 22:09 Dose: 125 mg - Labs Labs: 05/01/17 08:05 05/01/17 08:05 - Constitutional Appears: No Acute Distress - Head Exam Head Exam: ATRAUMATIC, NORMAL INSPECTION, NORMOCEPHALIC - Eye Exam Eye Exam: EOMI, Normal appearance, PERRL Pupil Exam: NORMAL ACCOMODATION, PERRL - ENT Exam ENT Exam: Mucous Membranes Moist, Normal Exam - Respiratory Exam Respiratory Exam: Clear to Ausculation Bilateral, NORMAL BREATHING PATTERN - Cardiovascular Exam Cardiovascular Exam: REGULAR RHYTHM, +S1, +S2. absent: Murmur - GI/Abdominal Exam GI & Abdominal Exam: Soft, Normal Bowel Sounds. 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
--- NOTE | 2017-05-01 23:12 | CP.PCM.PN ---
Subjective - Date & Time of Evaluation Date of Evaluation: 05/01/17 Time of Evaluation: 23:12 - Subjective Subjective: Subjective: afebrile, no complaints. FEELS MUCH BETTER. labs reviewed; stools repeat -ve C.DIFFICILE. +VE B.PERTUSSIS 1:516 IGA (N =<50 ) SPOKE WITH PHARMACY. PATIENT GIVEN A SHOT OF IM Tdap 0.5 mL upper arm deltoid region BECAUSE OFF WEANING IMMUNITY TO PERTUSSIS. RECENT HISTORY OF WHOOPING COUGH SECONDARY TO bORDETELLA PERTUSSIS. Objective - Vital Signs/Intake and Output Vital Signs (last 24 hours): Temp Pulse Resp BP Pulse Ox 98.1 F 74 20 118/75 96 05/01/17 17:23 05/01/17 17:23 05/01/17 17:23 05/01/17 17:23 05/01/17 17:23 Intake and Output: 05/01/17 05/02/17 18:59 06:59 Intake Total 400 Balance 400 - Medications Medications: Current Medications Aripiprazole (Abilify) 2.5 mg PO 1800 [facility] Last Admin: 05/01/17 18:57 Dose: 2.5 mg Bismuth Subsalicylate (Pepto-Bismol) 262 mg PO BID PRN PRN Reason: Diarrhea Clonidine HCl (Catapres) 0.1 mg PO BID [facility] Last Admin: 05/01/17 17:27 Dose: 0.1 mg Famotidine (Pepcid) 20 mg PO DAILY [facility] Last Admin: 05/01/17 10:14 Dose: 20 mg Gabapentin (Neurontin) 100 mg PO TID [facility] Last Admin: 05/01/17 17:26 Dose: 100 mg Insulin Glargine (Lantus) 20 unit SC HS [facility] Last Admin: 05/01/17 22:15 Dose: 20 unit Insulin Human Regular (Novolin R) 0 unit SC ACHS [facility] PRN Reason: Protocol Last Admin: 05/01/17 22:08 Dose: 2 unit Lactobacillus Acidophilus (Bacid Acidophilus) 1 cap PO BID [facility] Last Admin: 05/01/17 17:26 Dose: 1 cap Lorazepam (Ativan) 0.5 mg PO BID [facility] Last Admin: 05/01/17 17:26 Dose: 0.5 mg Metronidazole (Flagyl) 500 mg PO Q8 [facility] Last Admin: 05/01/17 22:09 Dose: 500 mg Tacrolimus (Prograf Cap) 1 mg PO Q12 [facility] Last Admin: 05/01/17 22:16 Dose: 1 mg Temazepam (Restoril) 30 mg PO HS PRN PRN Reason: Insomnia Last Admin: 04/30/17 21:21 Dose: 30 mg Vancomycin HCl (Vancocin (Oral Or Rectal Use)) 125 mg PO QID [facility] Last Admin: 05/01/17 22:09 Dose: 125 mg - Labs Labs: 05/01/17 08:05 05/01/17 08:05 - Constitutional Appears: No Acute Distress, Cachectic, Chronically Ill - Head Exam Head Exam: NORMAL INSPECTION - Eye Exam Eye Exam: EOMI, PERRL - ENT Exam ENT Exam: Normal Oropharynx - Neck Exam Neck Exam: absent: Lymphadenopathy - Respiratory Exam Respiratory Exam: Clear to Ausculation Bilateral, NORMAL BREATHING PATTERN - Cardiovascular Exam Cardiovascular Exam: REGULAR RHYTHM, +S1, +S2 - GI/Abdominal Exam GI & Abdominal Exam: Soft, Normal Bowel Sounds. absent: Tenderness - Extremities Exam Extremities Exam: Normal Capillary Refill. absent: Calf Tenderness, Pedal Edema , Tenderness - Neurological Exam Neurological Exam: Awake, CN II-XII Intact, Normal Gait, Oriented x3 - Psychiatric Exam Psychiatric exam: Normal Mood - Skin Skin Exam: Normal Color, Warm Assessment and Plan (1) Bordetella pertussis Assessment & Plan: PATIENT GIVEN A SHOT OF IM Tdap 0.5 mL upper arm deltoid region BECAUSE OF WEANING IMMUNITY TO PERTUSSIS. RECENT HISTORY OF WHOOPING COUGH SECONDARY TO BORDETELLA PERTUSSIS. WILL DISCUSS WITH DAUGHTER. Status: Acute (2) C. difficile colitis Assessment & Plan: patient on by mouth vancomycin 125 mg 4 times a day for 10 days.04/24/17 -day 8 X 2 DAYS MORE CPM Status: Acute (3) Influenza-like illness Status: Acute (4) Anxiety Status: Acute (5) Diabetes mellitus, insulin dependent (IDDM), uncontrolled Status: Acute (6) S/P liver transplant Status: Acute (7) Gram positive septicemia Status: Acute (8) Vaginitis due to Chrissy Status: Acute (9) Drug-induced leukopenia Status: Acute
[2017-05-02] MEDS: (Novolin R) Insulin Human Regular 100 units/ml vial SC SCH ×3 (07:16→16:58)
[2017-05-02 08:15] VITALS: RESP 18; TEMP 98.2
[2017-05-02] MEDS: Vancomycin 125 MG/5 ML SOLN (ORAL/RECTAL) PO SCH ×2 (10:04→13:11)
[2017-05-02] MEDS: Lactobacillus Acidophilus 500 MU Cap PO SCH (10:04)
[2017-05-02 11:46] LABS: EOS # 0.1 K/uL (0.0-0.7); EOS % 3.7 % (0.0-4.0); HEMOGLOBIN 10.4 g/dL (11.0-16.0); LYMPH # 0.5 K/uL (1.0-4.3); LYMPH % 17.7 % (20.0-40.0); MEAN CELL VOLUME 86.5 fL (81.0-99.0); MEAN CORPUSCULAR HEMOGLOBIN 29.2 pg (27.0-31.0); MEAN CORPUSCULAR HGB CONC 33.7 g/dL (33.0-37.0); MEAN PLATELET VOLUME 8.6 fL (7.2-11.7); MONO # 0.3 K/uL (0.0-0.8); MONO % 9.1 % (0.0-10.0); NEUT # 2.1 K/uL (1.8-7.0); NEUT % 68.5 % (50.0-75.0); RBC 3.58 Mil/uL (3.80-5.20); RED CELL DISTRIBUTION WIDTH 14.8 % (11.5-14.5); WHITE BLOOD COUNT 3.1 K/uL (4.8-10.8)
[2017-05-02 12:08] LABS: ALBUMIN 3.2 g/dL (3.5-5.0); ALT/SGPT 47 U/L (9-52); AST/SGOT 64 U/L (14-36); BLOOD UREA NITROGEN 17 mg/dL (7-17); GFR AFRICAN-AMERICAN > 60; GFR NON-AFRICAN AMERICAN 54
--- NOTE | 2017-05-02 14:19 | CP.PCM.PN ---
Subjective - Date & Time of Evaluation Date of Evaluation: 05/02/17 Time of Evaluation: 13:00 - Subjective Subjective: KITCHEN SUPERVISOR NOTES Patient seen today , denies any abdominal pain, N/V/ D c/o lower back pain , periods of hallucination and delusion noted daughter at bedside Objective - Vital Signs/Intake and Output Vital Signs (last 24 hours): Temp Pulse Resp BP Pulse Ox 98.2 F 72 18 115/69 97 05/02/17 07:25 05/02/17 07:25 05/02/17 07:25 05/02/17 07:25 05/02/17 07:25 - Medications Medications: Current Medications Aripiprazole (Abilify) 2.5 mg PO 1800 [facility] Last Admin: 05/01/17 18:57 Dose: 2.5 mg Bismuth Subsalicylate (Pepto-Bismol) 262 mg PO BID PRN PRN Reason: Diarrhea Clonidine HCl (Catapres) 0.1 mg PO BID [facility] Last Admin: 05/02/17 10:04 Dose: 0.1 mg Famotidine (Pepcid) 20 mg PO DAILY [facility] Last Admin: 05/02/17 10:04 Dose: 20 mg Gabapentin (Neurontin) 100 mg PO TID [facility] Last Admin: 05/02/17 13:10 Dose: 100 mg Insulin Glargine (Lantus) 20 unit SC HS [facility] Last Admin: 05/01/17 22:15 Dose: 20 unit Insulin Human Regular (Novolin R) 0 unit SC ACHS [facility] PRN Reason: Protocol Last Admin: 05/02/17 12:10 Dose: 2 unit Lactobacillus Acidophilus (Bacid Acidophilus) 1 cap PO BID [facility] Last Admin: 05/02/17 10:04 Dose: 1 cap Lorazepam (Ativan) 0.5 mg PO BID [facility] Last Admin: 05/02/17 10:04 Dose: 0.5 mg Metronidazole (Flagyl) 500 mg PO Q8 [facility] Last Admin: 05/02/17 13:10 Dose: 500 mg Tacrolimus (Prograf Cap) 1 mg PO Q12 [facility] Last Admin: 05/02/17 10:04 Dose: 1 mg Temazepam (Restoril) 30 mg PO HS PRN PRN Reason: Insomnia Last Admin: 04/30/17 21:21 Dose: 30 mg Vancomycin HCl (Vancocin (Oral Or Rectal Use)) 125 mg PO QID [facility] Last Admin: 05/02/17 13:11 Dose: 125 mg - Labs Labs: 05/02/17 11:35 05/02/17 11:35 Assessment and Plan - Assessment and Plan (Free Text) Assessment: A/P 77 yr old female with pmhx of Bipolar Disorder, Bronchitis, CAD, COPD, Depression, Diabetes admitted with viral syndrome BS- controlled with current regimen BC- repeat - negative for 5 days jose c- dif - repeat- negative pt has delusional disorder and Dr. Bella recommended [facility] at [place] Patient daughter discussed with patient and patient agreed to go at [facility] [place] and signed the consent As per TABATHA Keane patient accepted at [place] , Discussed with Dr. Hall , david for discharge to [facility]
[2017-05-02 16:59] VITALS: BP 134/74; PULSE 69; O2SAT 100
--- NOTE | 2017-05-02 17:54 | CP.PCM.PN ---
Subjective - Date & Time of Evaluation Date of Evaluation: 05/02/17 Time of Evaluation: 17:53 - Subjective Subjective: afebrile, no complaints. FEELS MUCH BETTER. NO DIARRHOEA TOLERATED INJ Tdap IM. [facility] Objective - Vital Signs/Intake and Output Vital Signs (last 24 hours): Temp Pulse Resp BP Pulse Ox 98.2 F 69 18 134/74 100 05/02/17 16:59 05/02/17 16:59 05/02/17 16:59 05/02/17 16:59 05/02/17 16:59 Intake and Output: 05/02/17 05/02/17 06:59 18:59 Intake Total 400 Balance 400 - Medications Medications: Current Medications Aripiprazole (Abilify) 2.5 mg PO 1800 [facility] Last Admin: 05/01/17 18:57 Dose: 2.5 mg Bismuth Subsalicylate (Pepto-Bismol) 262 mg PO BID PRN PRN Reason: Diarrhea Clonidine HCl (Catapres) 0.1 mg PO BID [facility] Last Admin: 05/02/17 10:04 Dose: 0.1 mg Famotidine (Pepcid) 20 mg PO DAILY [facility] Last Admin: 05/02/17 10:04 Dose: 20 mg Gabapentin (Neurontin) 100 mg PO TID [facility] Last Admin: 05/02/17 13:10 Dose: 100 mg Insulin Glargine (Lantus) 20 unit SC HS [facility] Last Admin: 05/01/17 22:15 Dose: 20 unit Insulin Human Regular (Novolin R) 0 unit SC ACHS [facility] PRN Reason: Protocol Last Admin: 05/02/17 16:58 Dose: 6 unit Lactobacillus Acidophilus (Bacid Acidophilus) 1 cap PO BID [facility] Last Admin: 05/02/17 10:04 Dose: 1 cap Lorazepam (Ativan) 0.5 mg PO BID [facility] Last Admin: 05/02/17 10:04 Dose: 0.5 mg Metronidazole (Flagyl) 500 mg PO Q8 [facility] Last Admin: 05/02/17 13:10 Dose: 500 mg Tacrolimus (Prograf Cap) 1 mg PO Q12 [facility] Last Admin: 05/02/17 10:04 Dose: 1 mg Temazepam (Restoril) 30 mg PO HS PRN PRN Reason: Insomnia Last Admin: 04/30/17 21:21 Dose: 30 mg Vancomycin HCl (Vancocin (Oral Or Rectal Use)) 125 mg PO QID [facility] Last Admin: 05/02/17 13:11 Dose: 125 mg - Labs Labs: 05/02/17 11:35 05/02/17 11:35 - Constitutional Appears: No Acute Distress - Head Exam Head Exam: NORMAL INSPECTION - Eye Exam Eye Exam: EOMI, PERRL - ENT Exam ENT Exam: Normal Oropharynx - Neck Exam Neck Exam: Normal Inspection - Respiratory Exam Respiratory Exam: Clear to Ausculation Bilateral - Cardiovascular Exam Cardiovascular Exam: REGULAR RHYTHM - GI/Abdominal Exam GI & Abdominal Exam: Soft, Normal Bowel Sounds - Extremities Exam Extremities Exam: absent: Calf Tenderness, Pedal Edema - Neurological Exam Neurological Exam: Awake, CN II-XII Intact, Oriented x3, Reflexes Normal - Skin Skin Exam: Warm Assessment and Plan (1) Bordetella pertussis Assessment & Plan: OFF ABX. GOT Tdap inj booster FOR B. PERTUSSIS. TOLERATED WELL. Status: Acute (2) C. difficile colitis Assessment & Plan: DENIES FURTHER DIARRHOEA. ON PO VANCOMYCIN 125MG PO QID (04/24/17 ) X 1 DAY MORE Status: Acute (3) Influenza-like illness Status: Acute (4) Anxiety Status: Acute (5) Diabetes mellitus, insulin dependent (IDDM), uncontrolled Status: Acute (6) S/P liver transplant Status: Acute (7) Gram positive septicemia Status: Acute (8) Vaginitis due to Chrissy Status: Acute (9) Drug-induced leukopenia Status: Acute
--- NOTE | 2017-05-02 18:53 | CP.PCM.DIS ---
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 (9) Diarrhea Status: Acute Hospital Course - Lab Results Lab Results: Micro Results 04/22/17 07:43 Blood-Venous Blood Culture - Final NO GROWTH AFTER 5 DAYS 04/22/17 07:43 Blood-Venous Gram Stain - Final TEST NOT PERFORMED 04/22/17 08:23 Blood-Venous Blood Culture - Final NO GROWTH AFTER 5 DAYS 04/22/17 08:23 Blood-Venous Gram Stain - Final TEST NOT PERFORMED 04/19/17 18:30 Blood-Venous Blood Culture - Final NO GROWTH AFTER 5 DAYS 04/19/17 18:30 Blood-Venous Gram Stain - Final TEST NOT PERFORMED 04/19/17 17:25 Blood-Venous Blood Culture - Final NO GROWTH AFTER 5 DAYS 04/19/17 17:25 Blood-Venous Gram Stain - Final TEST NOT PERFORMED 04/21/17 09:32 Stool Stool Culture - Final NO SALMONELLA, SHIGELLA OR CAMPYLOBACTER ISOLATED. 04/21/17 09:27 Nose MRSA Culture (Admit) - Final MRSA NOT DETECTED 04/18/17 16:15 Blood Blood Culture - Final Coagulase Neg Staphylococcus 04/18/17 16:15 Blood Gram Stain - Final 04/18/17 15:45 Blood S.aureus & Coag-Neg Staph PNA FISH - Final 04/18/17 15:45 Blood Blood Culture - Final Coagulase Neg Staphylococcus 04/18/17 15:45 Blood Gram Stain - Final Most Recent Lab Values WBC 3.1 K/uL (4.8-10.8) L 05/02/17 11:35 RBC 3.58 Mil/uL (3.80-5.20) L 05/02/17 11:35 Hgb 10.4 g/dL (11.0-16.0) L 05/02/17 11:35 Hct 31.0 % (34.0-47.0) L 05/02/17 11:35 MCV 86.5 fL (81.0-99.0) 05/02/17 11:35 MCH 29.2 pg (27.0-31.0) 05/02/17 11:35 MCHC 33.7 g/dL (33.0-37.0) 05/02/17 11:35 RDW 14.8 % (11.5-14.5) H 05/02/17 11:35 Plt Count 89 K/uL (130-400) L 05/02/17 11:35 MPV 8.6 fL (7.2-11.7) 05/02/17 11:35 Neut % (Auto) 68.5 % (50.0-75.0) 05/02/17 11:35 Lymph % (Auto) 17.7 % (20.0-40.0) L 05/02/17 11:35 [place] % (Auto) 9.1 % (0.0-10.0) 05/02/17 11:35 Eos % (Auto) 3.7 % (0.0-4.0) 05/02/17 11:35 Baso % (Auto) 1.0 % (0.0-2.0) 05/02/17 11:35 Neut # (Auto) 2.1 K/uL (1.8-7.0) 05/02/17 11:35 Lymph # (Auto) 0.5 K/uL (1.0-4.3) L 05/02/17 11:35 [place] # (Auto) 0.3 K/uL (0.0-0.8) 05/02/17 11:35 Eos # (Auto) 0.1 K/uL (0.0-0.7) 05/02/17 11:35 Baso # (Auto) 0.0 K/uL (0.0-0.2) 05/02/17 11:35 Neutrophils % (Manual) 92 % (50-75) H 04/25/17 06:47 Band Neutrophils % 3 % (0-2) H 04/25/17 06:47 Lymphocytes % (Manual) 3 % (20-40) L 04/25/17 06:47 Monocytes % (Manual) 2 % (0-10) 04/25/17 06:47 Platelet Estimate Decreased (NORMAL) L 04/25/17 06:47 Poikilocytosis (manual Slight 04/25/17 06:47 Anisocytosis (manual) Slight 04/25/17 06:47 Macrocytosis (manual) Slight 04/25/17 06:47 Tear Drop Cells Slight 04/25/17 06:47 Ovalocytes Slight 04/25/17 06:47 Feliz Cells Slight 04/25/17 06:47 Schistocytes Slight 04/25/17 06:47 ESR 54 mm/hr (0-20) H 04/21/17 08:26 Puncture Site Lr 04/25/17 15:30 pCO2 18 mm/Hg (35-45) L* 04/25/17 15:30 pO2 121 mm/Hg (80-100) H 04/25/17 15:30 HCO3 15.5 mmol/L (21-28) L 04/25/17 15:30 ABG pH 7.41 (7.35-7.45) 04/25/17 15:30 ABG Total CO2 12.0 mmol/L (22-28) L 04/25/17 15:30 ABG O2 Saturation 100.2 % (95-98) H 04/25/17 15:30 ABG Base Excess -12.1 mmol/L (-2.0-3.0) L 04/25/17 15:30 ABG Hemoglobin 6.1 g/dL (11.7-17.4) L 04/25/17 15:30 ABG Carboxyhemoglobin 1.9 % (0.5-1.5) H 04/25/17 15:30 POC ABG HHb (Measured) -0.2 % (0.0-5.0) L 04/25/17 15:30 ABG Methemoglobin 1.8 % (0.0-3.0) 04/25/17 15:30 Miguel A Test P 04/25/17 15:30 Hgb O2 Saturation 96.6 % (95.0-98.0) 04/25/17 15:30 Liter Flow 21.0 04/25/17 15:30 Crit Value Called To Dr hanley 04/25/17 15:30 Crit Value Called By [email or web address] 04/25/17 15:30 Crit Value Read Back Y 04/25/17 15:30 Blood Gas Notified Time 1543 04/25/17 15:30 Sodium 131 mmol/L (132-148) L 05/02/17 11:35 Potassium 5.2 mmol/L (3.6-5.2) 05/02/17 11:35 Chloride 97 mmol/L (98-107) L 05/02/17 11:35 Carbon Dioxide 27 mmol/L (22-30) 05/02/17 11:35 Anion Gap 13 (10-20) 05/02/17 11:35 BUN 17 mg/dL (7-17) 05/02/17 11:35 Creatinine 1.0 mg/dL (0.7-1.2) 05/02/17 11:35 Est GFR ( Amer) > 60 05/02/17 11:35 Est GFR (Non-Af Amer) 54 05/02/17 11:35 POC Glucose (mg/dL) 413 mg/dL (65-110) H* 05/02/17 16:51 Random Glucose 235 mg/dL (65-105) H 05/02/17 11:35 Hemoglobin A1c 8.3 % (4.2-6.5) H 04/22/17 08:13 Calcium 9.0 mg/dl (8.6-10.4) 05/02/17 11:35 Phosphorus 3.1 mg/dL (2.5-4.5) 04/20/17 12:28 Magnesium 1.6 mg/dL (1.6-2.3) 04/26/17 00:40 Total Bilirubin 0.7 mg/dL (0.2-1.3) 05/02/17 11:35 Direct Bilirubin 0.2 mg/dL (0.0-0.4) 04/22/17 08:13 AST 64 U/L (14-36) H 05/02/17 11:35 ALT 47 U/L (9-52) 05/02/17 11:35 Alkaline Phosphatase 160 U/L (38-126) H 05/02/17 11:35 Ammonia < 9 umol/L (9-33) L 04/22/17 13:48 Troponin I < 0.0120 ng/mL (0.00-0.120) 04/20/17 22:55 C-React Prot High Sens 5.86 mg/L (1.00-3.00) H 04/21/17 08:26 NT-Pro-B Natriuret Pep 988 pg/mL (0-900) H 04/18/17 15:58 Total Protein 6.4 g/dL (6.3-8.3) 05/02/17 11:35 Albumin 3.2 g/dL (3.5-5.0) L 05/02/17 11:35 Globulin 3.2 gm/dL (2.2-3.9) 05/02/17 11:35 Albumin/Globulin Ratio 1.0 (1.0-2.1) 05/02/17 11:35 Vitamin B12 812 pg/mL (239-931) 04/20/17 22:55 Folate 18.2 ng/mL 04/20/17 22:55 TSH 3rd Generation 3.80 mIU/L (0.46-4.68) 04/22/17 08:13 Urine Color Yellow (YELLOW) 04/28/17 18:24 Urine Clarity Clear (Clear) 04/28/17 18:24 Urine pH 6.0 (5.0-8.0) 04/28/17 18:24 Ur Specific [place] 1.013 (1.003-1.030) 04/28/17 18:24 Urine Protein 1+ mg/dL (NEGATIVE) H 04/28/17 18:24 Urine Glucose (UA) 3+ mg/dL (Normal) H 04/28/17 18:24 Urine Ketones Negative mg/dL (NEGATIVE) 04/28/17 18:24 Urine Blood Negative (NEGATIVE) 04/28/17 18:24 Urine Nitrate Negative (NEGATIVE) 04/28/17 18:24 Urine Bilirubin Negative (NEGATIVE) 04/28/17 18:24 Urine Urobilinogen Normal mg/dL (0.2-1.0) 04/28/17 18:24 Ur Leukocyte Esterase Negative [place]/uL (Negative) 04/28/17 18:24 Urine WBC (Auto) 1 /hpf (0-5) 04/28/17 18:24 Urine RBC (Auto) 1 /hpf (0-3) 04/28/17 18:24 Ur Squamous Epith Cells 1 /hpf (0-5) 04/21/17 15:18 Ur Transition Epith Cell < 1 /hpf (0-3) 04/28/17 18:24 Urine Bacteria Rare (<OCC) 04/28/17 18:24 Stool Leukocytes, Qual Negative (NEGATIVE) 04/20/17 09:32 Vancomycin Trough 8.8 ug/mL (5.0-10.0) 04/23/17 07:04 Alcohol, Quantitative < 10 mg/dl (0-10) 04/28/17 06:52 Serum Ketones Negative (NEGATIVE) 04/25/17 17:28 RPR Nonreactive (NONREACTIVE) 04/21/17 15:59 B. pertussis IgG Ab <1 IU/mL 04/21/17 08:26 B. pertussis IgG (PT) <1 IU/mL 04/22/17 08:13 B. pertussis IgG (FHA) 7 IU/mL 04/22/17 08:13 B. pertussis IgA (PT) 10 IU/mL H 04/22/17 08:13 B. pertussis IgA (FHA) 516 IU/mL H 04/22/17 08:13 C. difficile Ag & Toxin Negative (NEGATIVE) 04/30/17 17:55 Hepatitis A IgM Ab Negative (NEGATIVE) 04/22/17 08:30 Hep Bs Antigen Negative (NEGATIVE) 04/22/17 08:30 Hep B Core IgM Ab Negative (NEGATIVE) 04/22/17 08:30 Hepatitis C Antibody Negative (NEGATIVE) 04/22/17 08:30 HIV 1&2 Antibody Screen Negative (NEGATIVE) 04/20/17 12:28 Influenza Typ A,B (EIA) Negative for flu a/b (NEGATIVE) 04/21/17 Unknown Influenza Type A Ab 1:32 titer (<1:8) H 04/21/17 08:26 Influenza Type B Ab <1:8 titer (<1:8) 04/21/17 08:26 Ur L.pneumophila Ag Negative (NEGATIVE) 04/21/17 Unknown Discharge Exam - Head Exam Head Exam: NORMAL INSPECTION Discharge Plan - Discharge Medications Prescriptions: ARIPiprazole [Abilify] 2.5 mg PO 1800 #30 tab Gabapentin [Neurontin] 100 mg PO TID #90 cap - Follow Up Plan Condition: GOOD Disposition: HOME/ ROUTINE Instructions: Rotavirus Infection (DC), Ulcerative Colitis (DC), Sepsis (DC), Clostridium Difficile Infection (DC), Nutrition Tips for Relief of Diarrhea (DC) Additional Instructions: PLEASE CONTINUE VANCO PO QID X 2 MORE DAYS AND FLAGYL X 2 MORE DAYS CONTINUE ALL MEDICATION PER MED. REC. Referrals: Georgiana Bella MD [Staff Provider] - Westley Hall MD [Staff Provider] -
== END 2017-05-02 17:45 | disposition home or self-care (01) | DRG 872 ==
LOC: C.ER 14:44 → C.9E 18:05 → C.5S 21:41 → OBSVTOIN 04-20 13:10 → C.5S 04-20 16:49
PROVIDERS: ADMIT Internal Medicine; ATTEND Internal Medicine
DX: A41.89 Other specified sepsis (principal); E11.649 Type 2 diabetes mellitus with hypoglycemia without coma; E87.2 Acidosis; Z94.4 Liver transplant status; A37.00 Whooping cough due to Bordetella pertussis without pneumonia; E11.65 Type 2 diabetes mellitus with hyperglycemia; J11.1 Influenza due to unidentified influenza virus with other respiratory manifestations; B18.2 Chronic viral hepatitis C; D72.819 Decreased white blood cell count, unspecified; J44.9 Chronic obstructive pulmonary disease, unspecified; F22 Delusional disorders; F31.9 Bipolar disorder, unspecified; F41.9 Anxiety disorder, unspecified; I10 Essential (primary) hypertension; I25.10 Atherosclerotic heart disease of native coronary artery without angina pectoris; M17.12 Unilateral primary osteoarthritis, left knee; T38.3X5A Adverse effect of insulin and oral hypoglycemic [antidiabetic] drugs, initial encounter; T45.1X5A Adverse effect of antineoplastic and immunosuppressive drugs, initial encounter; Z23 Encounter for immunization; Z79.4 Long term (current) use of insulin; Z79.899 Other long term (current) drug therapy; Z87.01 Personal history of pneumonia (recurrent); Z91.81 History of falling

== ENCOUNTER 2017-06-13 09:37 | Inpatient (IN) | payer MEDICARE, MEDICAID ==
[2017-06-13 09:38] VITALS: BMI 21.2
[2017-06-13] MEDS ORDERED: Sodium Chloride 0.9% 1,000 ML IV ONE (09:55)
[2017-06-13 10:22] LABS: BASO % 0.8 % (0.0-2.0); EOS # 0.2 K/uL (0.0-0.7); EOS % 3.6 % (0.0-4.0); HEMOGLOBIN 10.1 g/dL (11.0-16.0); LYMPH # 0.6 K/uL (1.0-4.3); LYMPH % 10.2 % (20.0-40.0); MEAN CELL VOLUME 86.5 fL (81.0-99.0); MEAN CORPUSCULAR HEMOGLOBIN 28.2 pg (27.0-31.0); MEAN CORPUSCULAR HGB CONC 32.6 g/dL (33.0-37.0); MEAN PLATELET VOLUME 8.1 fL (7.2-11.7); MONO # 0.3 K/uL (0.0-0.8); MONO % 4.4 % (0.0-10.0); NEUT # 4.7 K/uL (1.8-7.0); RBC 3.59 Mil/uL (3.80-5.20); RED CELL DISTRIBUTION WIDTH 16.5 % (11.5-14.5)
[2017-06-13 10:23] LABS: WHITE BLOOD COUNT 5.8 K/uL (4.8-10.8)
[2017-06-13 10:28] LABS: ALB/GLOB RATIO 0.8 (1.0-2.1); ALBUMIN 2.9 g/dL (3.5-5.0); ALT/SGPT 22 U/L (9-52); AST/SGOT 32 U/L (14-36); BLOOD UREA NITROGEN 10 mg/dL (7-17); CALCIUM 8.1 mg/dl (8.6-10.4); GFR AFRICAN-AMERICAN > 60; GFR NON-AFRICAN AMERICAN > 60; LIPASE 22 U/L (23-300)
[2017-06-13] MEDS ORDERED: Iodixanol 320 MG/ML 100 ML BOTTLE IV ONE (10:55)
--- NOTE | 2017-06-13 11:03 | C.PDOC ---
History Of Present Illness 77 year old female presents to the ED for evaluation of multiple daily episodes of diarrhea which began approx one month ago. Patient states her symptoms worsened yesterday (began to have blood), which prompted today's visit. Patient is also complaining of abdominal cramping, nausea, generalized weakness and decreased appetite. Patient was admitted to [facility] approximately 3 weeks ago for "flu." As per patient's daughter, shew as given antibiotics at the time. Patient denies fever, chills, chest pain, shortness of breath, vomiting, dysuria /hematuria. Time Seen by Provider: 06/13/17 09:46 Chief Complaint (Nursing): GI Problem History Per: Patient, Family (daughter) History/Exam Limitations: no limitations Onset/Duration Of Symptoms: Other (1 month ) Current Symptoms Are (Timing): Still Present Location Of Pain/Discomfort: Diffuse Quality Of Discomfort: Cramping Associated Symptoms: Diarrhea. denies: Fever, Chills, Vomiting, Chest Pain, Urinary Symptoms Additional History Per: Patient Abnormal Vaginal Bleeding: No Past Medical History Reviewed: Historical Data, Nursing Documentation, Vital Signs Vital Signs: Last Vital Signs Temp 98.0 F 06/14/17 00:00 Pulse 77 06/14/17 00:00 Resp 20 06/14/17 00:00 BP 112/64 06/14/17 00:00 Pulse Ox 97 06/14/17 00:00 - Medical History PMH: Anxiety, Arthritis (L KNEE; BACK), Bipolar Disorder, Bronchitis, CAD, Depression, Diabetes, Fractures (L leg), Gastritis, HTN, Peripheral Edema, Pneumonia, Pneumothorax (effusion) Denies: Anemia, Asthma, Atrial Fibrillation, Cardia Arrhythmia, CHF, Crohn's Disease, Diverticulitis, Emphysema, Gall Bladder Disease, HIV, Hypercholesterolemia, Hyperthyroidism, Hypothyroidism, Mitral Valve Prolapse, Osteoporosis, Pancreatitis, Paranoia, Post Traumatic Stress Disorder, Pulmonary Embolism, Chronic Kidney Disease, Rheumatoid Arthritis, Schizophrenia, Sickle Cell Disease, Sexually Transmitted Disease, Sleep Apnea Comment Only: COPD (DENIES) Surgical History: (x 2) Denies: Appendectomy, CABG, Carotid Endarterectomy, Cholecystectomy, Coronary Stent, Pacemaker, Tonsillectomy - [facility] Procedures CLOSED ENDOSCOPIC BIOPSY OF LARGE INTESTINE (08/31/13) DRAINAGE OF RIGHT LOWER LOBE BRONCHUS, ENDO, DIAGN (08/03/15) DRAINAGE OF RIGHT MIDDLE LOBE BRONCHUS, ENDO, DIAGN (08/03/15) DRAINAGE OF SPINAL CANAL, PERCUTANEOUS APPROACH, DIAGNOSTIC (08/03/15) ESOPHAGOGASTRODUODENOSCOPY [EGD] W/CLOSED BIOPSY (08/31/13) GROUP PSYCHOTHERAPY (05/02/17) INDIVIDUAL PSYCHOTHERAPY, SUPPORTIVE (05/02/17) INSERT INTERCOSTAL CATH (03/15/14) INSERTION OF ENDOTRACHEAL AIRWAY INTO TRACHEA, VIA OPENING (08/03/15) INSERTION OF INFUSION DEV INTO SUP VENA CAVA, PERC APPROACH (08/03/15) INTRODUCTION OF SERUM/TOX/VACCINE INTO MUSCLE, PERC APPROACH (04/20/17) OTHER PLEURAL INCISION (03/15/14) REMOVAL OF FB NOS (05/25/13) RESPIRATORY VENTILATION, GREATER THAN 96 CONSECUTIVE HOURS (08/03/15) TRANSFUSE NONAUT PLATELETS IN PERIPH VEIN, PERC (08/03/15) Family History: States: Unknown Family Hx - Social History Hx Tobacco Use: No Hx Alcohol Use: No Hx Substance Use: No - Immunization History Hx Tetanus Toxoid Vaccination: Yes Hx Influenza Vaccination: Yes Hx Pneumococcal Vaccination: Yes Review Of Systems Constitutional: Positive for: Weakness, Other (decreased appetite ). Negative for: Fever, Chills Cardiovascular: Negative for: Chest Pain Respiratory: Negative for: Shortness of Breath Gastrointestinal: Positive for: Other (abdominal cramping ). Negative for: Vomiting Genitourinary: Negative for: Dysuria Physical Exam - Physical Exam Appears: Non-toxic, No Acute Distress, Other (fatigued/weak appearing ) Skin: Normal Color, Warm, Dry Head: Normacephalic Eye(s): bilateral: Normal Inspection Oral Mucosa: Dry Lips: Other (dry, chapped ) Neck: Supple Cardiovascular: Rhythm Regular Respiratory: Normal Breath Sounds, No Rales, No Rhonchi, No Wheezing Gastrointestinal/Abdominal: Bowel Sounds, Soft, Tenderness (diffuse TTP, (-) McBurney's, (-) Riojas's), No Guarding, No Rebound Extremity: Normal ROM Neurological/Psych: Oriented x3 ED Course And Treatment - Laboratory Results Result Diagrams: 06/14/17 07:09 06/13/17 10:12 O2 Sat by Pulse Oximetry: 100 (on RA) Pulse Ox Interpretation: Normal - CT Scan/US CT ABD/PELVIS Other Rad Studies (CT/US): Read By Radiologist, Radiology Report Reviewed CT/US Interpretation: Accession No. : [id number]. Patient Name / ID : EARLENE LAL / [id number]. Exam Date : 06/13/2017 11:07:37 ( Approved ). Study Comment : Sex / Age : F / [id number]. Creator : Lyn Alexander MD. Dictator : Lyn Alexander MD. Physical Laboratory Assistant : Gas Well Pumper : Lyn Alexander MD. Approver2 : Report Date : 06/13/2017 11:58:31. My Comment : . PROCEDURE: CT Abdomen and Pelvis with contrast. HISTORY: ABDOMINAL PAIN, PERSISTENT DIARRHEA. COMPARISON: None. TECHNIQUE: CT scan of the abdomen and pelvis was performed after administration of intravenous contrast. Oral contrast was not administered. Coronal and sagittal reformatted images were obtained. Contrast dose: 100 mL Visipaque. Radiation dose: Total exam DLP = 219.08 mGy-cm. This CT exam was performed using one or more of the following dose reduction techniques: Automated exposure control, adjustment of the mA and/ or kV according to patient size, and/or use of iterative reconstruction technique. FINDINGS: LOWER THORAX: There is minimal subsegmental atelectasis in the left lower lobe. The right lung base is clear. LIVER: There is diffuse fatty infiltration in the. No gross lesion or ductal dilatation. GALLBLADDER AND BILE DUCTS: Contracted. PANCREAS: Diffuse atrophy. No gross lesion or ductal dilatation. SPLEEN: Mild splenomegaly without focal lesion. . ADRENALS : No discrete nodule. KIDNEYS AND URETERS: Both kidneys are normal in size and there is homogeneous enhancement. No hydronephrosis. No solid mass. There are few simple cortical cysts in the right kidney, the largest in the lower pole measures. 2.7 cm. VASCULATURE: There are advanced atherosclerotic aortoiliac calcifications. No aortic aneurysm. BOWEL: The small bowel loops are normal in caliber. There is diffuse mild circumferential mural thickening in the colon with mild pericolonic inflammatory changes. No bowel dilatation or obstruction. APPENDIX: No inflammatory changes in the right lower quadrant. PERITONEUM: No free fluid. No free air. LYMPH NODES: No enlarged lymph nodes. BLADDER: Well distended and grossly normal in appearance. REPRODUCTIVE : Unremarkable. BONES: No acute fracture. Diffuse bone demineralization. Mild multilevel degenerative disc disease. OTHER FINDINGS: None. IMPRESSION: Evaluation of the small bowel and colon is limited in the absence of oral contrast. Allowing for this, diffuse circumferential mural thickening in the colon could be related to early nonspecific colitis. No evidence of bowel dilatation or obstruction. Fatty liver and mild splenomegaly. Progress Note: Bloodwork, UA, CT A/P ordered and reviewed. Patient was given IV NS bolus. Patient's daughter brought sample of diarrhea to ED, (+) grossly bloody. CT scan/clinical picture of colitis - IV Ciprofloxacin and Flagyl given for colitis. - Physician Consult Information Physician Contacted: Westley Hall Outcome Of Conversation: Discussed patient with PMD, agrees with admission to his service. Disposition - Disposition Disposition: HOSPITALIZED Disposition Time: 12:22 Condition: STABLE - Clinical Impression Clinical Impression: Colitis, Bloody diarrhea, Dehydration, Intractable diarrhea, Weakness - Scribe Statement The provider has reviewed the documentation as recorded by the Scribe (Yamilet Cabrera) Provider Attestation: All medical record entries made by the Scribe were at my direction and personally dictated by me. I have reviewed the chart and agree that the record accurately reflects my personal performance of the history, physical exam, medical decision making, and the department course for this patient. I have also personally directed, reviewed, and agree with the discharge instructions and disposition. Decision To Admit - Pt Status Changed To: Hospital Disposition Of: Inpatient - Admit Certification Admit to Inpatient:: After my assessment, the patient will require hospitalization for at least two midnights. This is because of the severity of symptoms shown, intensity of services needed, and/or the medical risk in this patient being treated as an outpatient. - InPatient: Physician Admission Certification:: see notes - . Bed Request Type: Regular Admitting Physician: Westley Hall Patient Diagnosis: Colitis, Bloody diarrhea, Intractable diarrhea, Dehydration, Weakness
[2017-06-13 11:07] LABS: SQUAMOUS EPITHIAL < 1 /hpf (0-5); URINE BACTERIA RARE (<OCC); URINE BILIRUBIN NEGATIVE (NEGATIVE); URINE BLOOD NEGATIVE (NEGATIVE); URINE CLARITY Clear (Clear); URINE COLOR Straw (YELLOW); URINE GLUCOSE (UA) 3+ mg/dL (Normal); URINE HYALINE CAST 0-2 /lpf (0-2); URINE LEUKOCYTE ESTERASE TRACE Leu/uL (Negative); URINE PROTEIN NEGATIVE (NEGATIVE); URINE UROBILINOGEN NORMAL mg/dL (0.2-1.0)
--- NOTE | 2017-06-13 12:00 | CT ---
PROCEDURE: CT Abdomen and Pelvis with contrast HISTORY: ABDOMINAL PAIN, PERSISTENT DIARRHEA COMPARISON: None. TECHNIQUE: CT scan of the abdomen and pelvis was performed after administration of intravenous contrast. Oral contrast was not administered. Coronal and sagittal reformatted images were obtained. Contrast dose: 100 mL Visipaque Radiation dose: Total exam DLP = 219.08 mGy-cm. This CT exam was performed using one or more of the following dose reduction techniques: Automated exposure control, adjustment of the mA and/or kV according to patient size, and/or use of iterative reconstruction technique. FINDINGS: LOWER THORAX: There is minimal subsegmental atelectasis in the left lower lobe. The right lung base is clear. LIVER: There is diffuse fatty infiltration in the. No gross lesion or ductal dilatation. GALLBLADDER AND BILE DUCTS: Contracted. PANCREAS: Diffuse atrophy. No gross lesion or ductal dilatation. SPLEEN: Mild splenomegaly without focal lesion. . ADRENALS: No discrete nodule. KIDNEYS AND URETERS: Both kidneys are normal in size and there is homogeneous enhancement. No hydronephrosis. No solid mass. There are few simple cortical cysts in the right kidney, the largest in the lower pole measures 2.7 cm. VASCULATURE: There are advanced atherosclerotic aortoiliac calcifications. No aortic aneurysm. BOWEL: The small bowel loops are normal in caliber. There is diffuse mild circumferential mural thickening in the colon with mild pericolonic inflammatory changes. No bowel dilatation or obstruction. APPENDIX: No inflammatory changes in the right lower quadrant. PERITONEUM: No free fluid. No free air. LYMPH NODES: No enlarged lymph nodes. BLADDER: Well distended and grossly normal in appearance. REPRODUCTIVE: Unremarkable. BONES: No acute fracture. Diffuse bone demineralization. Mild multilevel degenerative disc disease. OTHER FINDINGS: None. IMPRESSION: Evaluation of the small bowel and colon is limited in the absence of oral contrast. Allowing for this, diffuse circumferential mural thickening in the colon could be related to early nonspecific colitis. No evidence of bowel dilatation or obstruction. Fatty liver and mild splenomegaly.
[2017-06-13] MEDS ORDERED: Ciprofloxacin 400mg/200ml D5W 400 MG/200 ML BAG IV STA ×2 (12:20→14:21)
[2017-06-13] MEDS ORDERED: metroNIDAZOLE IV 500 mg/100 ml 500 MG/100 ML BAG IV STA (12:20)
[2017-06-13] MEDS ORDERED: metroNIDAZOLE IV 500 mg/100 ml 500 MG/100 ML BAG ONE (12:47)
[2017-06-13] MEDS ORDERED: Sodium Chloride 0.9% 500 ML IV ONE (13:52)
[2017-06-13] MEDS ORDERED: Bismuth Subsalicylate 262 mg/15 ml Sus (240 ml) PO PRN (13:53)
[2017-06-13] MEDS: (Novolin R) Insulin Human Regular 100 units/ml vial SC SCH ×3 (17:26→21:54)
[2017-06-13] MEDS: Lactobacillus Acidophilus 500 MU Cap PO SCH (17:26)
[2017-06-13] MEDS: Ciprofloxacin 200mg/100ml D5W 100 ML IVPB SCH (21:59)
[2017-06-13] MEDS ORDERED: Insulin Detemir 100 units/ml Vial (Levemir) SC SCH (22:00)
[2017-06-14 07:18] LABS: BASO % 0.7 % (0.0-2.0); EOS # 0.1 K/uL (0.0-0.7); EOS % 2.7 % (0.0-4.0); HEMOGLOBIN 9.8 g/dL (11.0-16.0); LYMPH # 0.5 K/uL (1.0-4.3); LYMPH % 15.1 % (20.0-40.0); MEAN CORPUSCULAR HEMOGLOBIN 28.3 pg (27.0-31.0); MEAN CORPUSCULAR HGB CONC 33.3 g/dL (33.0-37.0); MONO # 0.3 K/uL (0.0-0.8); MONO % 7.7 % (0.0-10.0); NEUT # 2.5 K/uL (1.8-7.0); NEUT % 73.8 % (50.0-75.0); RBC 3.46 Mil/uL (3.80-5.20); RED CELL DISTRIBUTION WIDTH 16.3 % (11.5-14.5); WHITE BLOOD COUNT 3.4 K/uL (4.8-10.8)
[2017-06-14 07:23] LABS: INR 1.2
[2017-06-14] MEDS: (Novolin R) Insulin Human Regular 100 units/ml vial SC SCH ×7 (08:21→23:15)
[2017-06-14] MEDS: Lactobacillus Acidophilus 500 MU Cap PO SCH ×2 (09:20→18:05)
[2017-06-14] MEDS: Ciprofloxacin 200mg/100ml D5W 100 ML IVPB SCH ×3 (09:21→22:44)
[2017-06-14] MEDS ORDERED: Peg-Electrolyte Oral Soln 4L (Golytely) PO ONE (10:00)
--- NOTE | 2017-06-14 10:30 | PN ---
DATE: 06/13/2017 LOCATION: 350 bed A. SUBJECTIVE: This is a 77-year-old female seen in initial GI consultation on 06/13/2017 as requested by the admitting medical team, reexamined again today, appears to be somewhat mildly wheezing with mild generalized weakness and malaise, but no reported active bleeding earlier this morning. Most recent lab results showed low hemoglobin and hematocrit but normal white blood cells and platelet count with subsequent blood glucose level as reported in the chart. Rest of the lab results still pending including the patient's cancer markers. C. difficile toxin reported to be negative. Official report of the CAT scan of the abdomen reviewed again, indicative of diffuse circumferential mural thickening of the colon. PHYSICAL EXAMINATION: GENERAL: A 77-year-old female, awake, alert, somewhat oriented. VITAL SIGNS: Afebrile with pulse of 76, respiratory rate 20 to 22, blood pressure 118/66. HEENT: Showed pale, dry, oral mucous membrane. Nonicteric sclerae. LUNGS: Few scattered crepitation. Decreased air entry at bases. HEART: Positive S1 and S2. ABDOMEN: Soft with slight generalized tenderness. No mass or organomegaly. No rebound tenderness or guarding. RECTAL: The patient refused. EXTREMITIES: Without significant clubbing, cyanosis, or edema. NEURO: No reported new neurological deficits, sensory or motor. No reported new focal deficits. Peripheral pulses are present bilaterally. IMPRESSION: 1. Gastrointestinal blood loss, upper versus lower. 2. Bloody diarrhea, with abnormal CAT scan of the abdomen and pelvis, to rule out occult gastrointestinal malignancy. 3. Anemia most likely secondary to above. 4. Multiple past medical history including, but not limited to, depression, severe anxiety syndrome, poorly controlled diabetes mellitus, chronic artery disease, hypertension with peptic ulcer disease as well as pneumonia. SUGGESTIONS: 1. Agree with your plan. 2. ____ blood glucose level. 3. Patient for upper and lower endoscopy at a.m. after adequate preparation. Teresita Lo MD
--- NOTE | 2017-06-14 14:43 | CP.PCM.HP ---
History of Present Illness - History of Present Illness History of Present Illness: History Of Present Illness 77 year old female presents to the ED for evaluation of multiple daily episodes of diarrhea which began approx one month ago. Patient states her symptoms worsened yesterday (began to have blood), which prompted today's visit. Patient is also complaining of abdominal cramping, nausea, generalized weakness and decreased appetite. Patient was admitted to [facility] approximately 3 weeks ago for "flu." As per patient's daughter, shew as given antibiotics at the time. Patient denies fever, chills, chest pain, shortness of breath, vomiting, dysuria /hematuria. Present on Admission - Present on Admission Any Indicators Present on Admission: No Past Patient History - Infectious Disease Hx of Infectious Diseases: C.diff - Past Medical History & Family History Past Medical History?: Yes - Past Social History Smoking Status: Never Smoked - CARDIAC Hx Atrial Fibrillation: No Hx Cardia Arrhythmia: No Hx Congestive Heart Failure: No Hx Hypercholesterolemia: No Hx Hypertension: Yes Hx Mitral Valve Prolapse: No Hx Pacemaker: No Hx Peripheral Edema: Yes - PULMONARY Hx Asthma: No Hx Bronchitis: Yes Hx Chronic Obstructive Pulmonary Disease (COPD): (DENIES) Hx Emphysema: No Hx Pneumonia: Yes Hx Pulmonary Embolism: No Hx Sleep Apnea: No - NEUROLOGICAL Hx Neurological Disorder: No - HEENT Hx HEENT Problems: No Hx Blind: Yes (Right eye blind) - RENAL Hx Chronic Kidney Disease: No - ENDOCRINE/METABOLIC Hx Hyperthyroidism: No Hx Hypothyroidism: No - HEMATOLOGICAL/ONCOLOGICAL Hx Anemia: No Hx Human Immunodeficiency Virus (HIV): No Hx Sickle Cell Disease: No - INTEGUMENTARY Hx Dermatological Problems: No - MUSCULOSKELETAL/RHEUMATOLOGICAL Hx Arthritis: Yes (L KNEE; BACK) Hx Fractures: Yes (L leg) Hx Osteoporosis: No Hx Rheumatoid Arthritis: No - GASTROINTESTINAL Hx Crohn's Disease: No Hx Diverticulitis: No Hx Gall Bladder Disease: No Hx Gastritis: Yes Hx Pancreatitis: No - GENITOURINARY/GYNECOLOGICAL Hx Sexually Transmitted Disorders: No - PSYCHIATRIC Hx Anxiety: Yes Hx Bipolar Disorder: Yes Hx Depression: Yes Hx Paranoia: No Hx Post Traumatic Stress Disorder: No Hx Schizophrenia: No Hx Substance Use: No - SURGICAL HISTORY Hx Appendectomy: No Hx Carotid Endarterectomy: No Hx Cholecystectomy: No Hx Coronary Artery Bypass Graft: No Hx Coronary Stent: No Hx Tonsillectomy: No - ANESTHESIA Hx Anesthesia: Yes Hx Anesthesia Reactions: No Hx Malignant Hyperthermia: No Meds Home Medications: Home Medication List Medication Instructions Recorded Confirmed Type Atropine/Diphenoxylate [Lonox 1 tab PO TID PRN #20 tab 06/16/17 Rx 0.025 MG-2.5 MG] Pantoprazole Sodium [Protonix] 40 mg PO DAILY #30 ect 06/16/17 Rx metroNIDAZOLE [Flagyl] 500 mg PO Q8 #15 tab 06/16/17 Rx Allergies/Adverse Reactions: Allergies Allergy/AdvReac Type Severity Reaction Status Date / Time No Known Allergies Allergy Verified 06/13/17 09:52 Results - Vital Signs Recent Vital Signs: Last Vital Signs Temp 98.0 F 06/14/17 09:39 Pulse 83 06/14/17 09:39 Resp 20 06/14/17 09:39 BP 133/77 06/14/17 09:39 Pulse Ox 100 06/14/17 09:44 - Labs Result Diagrams: 06/16/17 07:37 06/16/17 07:37 Labs: Laboratory Results - last 24 hr 06/13/17 06/13/17 06/13/17 16:29 17:55 17:55 WBC RBC Hgb Hct MCV MCH MCHC RDW Plt Count MPV Neut % (Auto) Lymph % (Auto) Gregg % (Auto) Eos % (Auto) Baso % (Auto) Neut # (Auto) Lymph # (Auto) Gregg # (Auto) Eos # (Auto) Baso # (Auto) PT INR APTT POC Glucose (mg/dL) 456 H* Carcinoembryonic Ag Stool Leukocytes, Qual Negative C. difficile Ag & Toxin Negative 06/13/17 06/14/17 06/14/17 21:29 06:59 07:02 WBC RBC Hgb Hct MCV MCH MCHC RDW Plt Count MPV Neut % (Auto) Lymph % (Auto) Gregg % (Auto) Eos % (Auto) Baso % (Auto) Neut # (Auto) Lymph # (Auto) Gregg # (Auto) Eos # (Auto) Baso # (Auto) PT INR APTT POC Glucose (mg/dL) 266 H 51 L 52 L Carcinoembryonic Ag Stool Leukocytes, Qual C. difficile Ag & Toxin 06/14/17 06/14/17 06/14/17 07:09 07:09 07:09 WBC 3.4 L RBC 3.46 L Hgb 9.8 L Hct 29.4 L MCV 85.0 MCH 28.3 MCHC 33.3 RDW 16.3 H Plt Count 129 L MPV 8.0 Neut % (Auto) 73.8 Lymph % (Auto) 15.1 L Gregg % (Auto) 7.7 Eos % (Auto) 2.7 Baso % (Auto) 0.7 Neut # (Auto) 2.5 Lymph # (Auto) 0.5 L Gregg # (Auto) 0.3 Eos # (Auto) 0.1 Baso # (Auto) 0.0 PT 13.0 H INR 1.2 APTT 30 POC Glucose (mg/dL) Carcinoembryonic Ag 2.3 Stool Leukocytes, Qual C. difficile Ag & Toxin 06/14/17 06/14/17 06/14/17 07:24 11:26 11:28 WBC RBC Hgb Hct MCV MCH MCHC RDW Plt Count MPV Neut % (Auto) Lymph % (Auto) Gregg % (Auto) Eos % (Auto) Baso % (Auto) Neut # (Auto) Lymph # (Auto) Gregg # (Auto) Eos # (Auto) Baso # (Auto) PT INR APTT POC Glucose (mg/dL) 77 53 L 59 L Carcinoembryonic Ag Stool Leukocytes, Qual C. difficile Ag & Toxin 06/14/17 11:59 WBC RBC Hgb Hct MCV MCH MCHC RDW Plt Count MPV Neut % (Auto) Lymph % (Auto) Gregg % (Auto) Eos % (Auto) Baso % (Auto) Neut # (Auto) Lymph # (Auto) Gregg # (Auto) Eos # (Auto) Baso # (Auto) PT INR APTT POC Glucose (mg/dL) 89 Carcinoembryonic Ag Stool Leukocytes, Qual C. difficile Ag & Toxin
[2017-06-14] MEDS ORDERED: Bisacodyl 5mg EC Tab PO ONE (17:00)
[2017-06-14] MEDS: Insulin Detemir 100 units/ml Vial (Levemir) SC SCH (22:35)
--- NOTE | 2017-06-15 05:45 | CON ---
DATE: 06/13/[address] Teresita Lo to Dr. Westley Hall. I was called for GI consultation by the admitting medical team. The patient is seen and fully examined on 06/13/[address] Westley Hall. The entire chart is reviewed including but not limited to the most recent lab and radiology study results, current and the previous medication list, current and the previous medical events, allergies to medication list, as well as all the available current and the previous medical records. Case discussed with the staff before and immediately after my GI consultation and evaluation on 06/13/2017. HISTORY OF PRESENT ILLNESS: This 77-year-old female was admitted to the hospital through the emergency room with the main complaint of but not limited to currently abdominal pain and diarrhea for over 3 to 4 weeks, associated with fresh blood and all the blood on and off, nausea, generalized weakness and malaise, dyspepsia with loss of appetite and less oral intake. Apart from her history that recent flu-like symptoms for which she was getting oral antibiotics, name is unclear at this point which may contribute her bloody diarrhea indirectly. The patient denies any chest pain, palpitation, significant shortness of breath, no hematemesis but occasional chills, no fever. PAST MEDICAL HISTORY: Including, but not limited to, 1. Psychiatric disorder, with depression, severe anxiety syndrome, reported bipolar disorder. 2. Hypertension, coronary artery disease. 3. Diabetes mellitus, peptic ulcer disease, pneumonia with spontaneous pneumothorax and reported pleural effusion before. 4. Known history of osteoarthritis. FAMILY HISTORY: Noncontributory. SOCIAL HISTORY: Denies any recent known history of cigarette smoking or alcohol intake. PAST SURGICAL HISTORY: Status post . CURRENT MEDICATIONS: Medication list to both admissions were reviewed. ALLERGIES TO MEDICATIONS: UNKNOWN. LABORATORY DATA: After being admitted to the hospital, initial blood workup showed hemoglobin 10.1, hematocrit 31.1. Blood glucose level is 353, low CO2 content of 18 indicative of metabolic acidosis. CAT scan of the abdomen and pelvis was done. Initial report reviewed indicative of diffuse circumferential mural thickening in the colon with possible colitis. PHYSICAL EXAMINATION: GENERAL: A 77-year-old female seen and examined with Surinamese-spoken staff. VITAL SIGNS: Afebrile with pulse of 82, respiratory rate 18 to 20, blood pressure 146/82. HEENT: Showed mildly pale, dry oral mucous membrane. Nonicteric sclerae. LYMPH NODES: No lymphadenitis or lymphadenopathy. LUNGS: Few scattered mild bilateral crepitations with few rhonchi. Breathing sounds are present, but decreased at bases. HEART: Positive S1 and S2. ABDOMEN: Soft with mild distension and generalized tenderness. No mass or organomegaly. No rebound tenderness or guarding. RECTAL: The patient refused. EXTREMITIES: Bilateral lower extremity edematous changes. No clubbing or cyanosis. NEUROLOGIC: No reported new neurological deficits, sensory or motor. IMPRESSION: 1. Bloody diarrhea, and possibility of pseudomembranous colitis was raised. 2. Abnormal CAT scan of the abdomen and pelvis, to rule out occult gastrointestinal malignancy. 3. Re-exacerbation of peptic ulcer disease with possible diabetic gastroparesis. 4. Anemia, rule out gastrointestinal blood loss upper versus lower. 5. Multiple past medical history as mentioned above. SUGGESTIONS: 1. Agree with your plan. 2. Cancer markers including CEA. 3. Complete stool analysis including C. diff toxin. 4. Proton pump inhibitors. 5. Low-dose of Reglan IV. 6. Flagyl IV. 7. Endoscopic evaluation of GI tract when the patient is more stable clinically. 8. Further recommendations to follow. The patient to be scheduled for again endoscopic evaluation of the GI tract after and adequate preparation and when the patient is more stable clinically. Thank you for letting me participate in your patient's case management. We will follow up closely with you. Teresita Lo MD
[2017-06-15 07:58] LABS: BLOOD UREA NITROGEN 4 mg/dL (7-17); CALCIUM 8.2 mg/dl (8.6-10.4); GFR AFRICAN-AMERICAN > 60; GFR NON-AFRICAN AMERICAN > 60
[2017-06-15] MEDS: (Novolin R) Insulin Human Regular 100 units/ml vial SC SCH ×7 (08:21→21:14)
[2017-06-15] MEDS: Lactobacillus Acidophilus 500 MU Cap PO SCH ×2 (10:22→17:49)
[2017-06-15] MEDS: Ciprofloxacin 200mg/100ml D5W 100 ML IVPB SCH ×2 (10:49→21:13)
--- NOTE | 2017-06-15 13:10 | CP.PCM.PN ---
Subjective - Date & Time of Evaluation Date of Evaluation: 06/14/17 Time of Evaluation: 19:40 - Subjective Subjective: Pt continues to have diarrhea, jose for C.Diff is neg x 1, pt is weak, pale, no efver, no cramps in abdomen, on antibiotics, Gi evalauted the t too Objective - Vital Signs/Intake and Output Vital Signs (last 24 hours): Temp Pulse Resp BP Pulse Ox 98.1 F 75 20 157/78 H 97 06/15/17 07:57 06/15/17 07:57 06/15/17 07:57 06/15/17 07:57 06/15/17 07:57 Intake and Output: 06/15/17 06/15/17 06:59 18:59 Intake Total 500 0 Balance 500 0 - Medications Medications: Current Medications Acetaminophen (Tylenol 325mg Tab) 325 mg PO Q6H PRN PRN Reason: Fever >100.4 F Bismuth Subsalicylate (Pepto-Bismol) 262 mg PO Q4 PRN PRN Reason: Diarrhea Clonidine HCl (Catapres) 0.1 mg PO BID [facility] Last Admin: 06/15/17 10:22 Dose: Not Given Ergocalciferol (Drisdol 50,000 Intl Units Cap) 1 cap PO QWK [facility] Famotidine (Pepcid) 20 mg PO DAILY [facility] Last Admin: 06/15/17 10:23 Dose: Not Given Heparin Sodium (Porcine) (Heparin) 5,000 units SC Q8 [facility] Last Admin: 06/15/17 07:39 Dose: Not Given Ciprofloxacin (Cipro 200mg/100ml D5w) 100 mls @ 67 mls/hr IVPB Q12H [facility] PRN Reason: Protocol Last Admin: 06/15/17 10:49 Dose: 67 mls/hr Sodium Chloride (Sodium Chloride 0.9%) 1,000 mls @ 80 mls/hr IV .[id number] [facility] Insulin Detemir (Levemir) 8 unit SC HS [facility] Last Admin: 06/14/17 22:35 Dose: Not Given Insulin Human Regular (Novolin R) 5 unit SC TIDPC [facility] Last Admin: 06/15/17 09:22 Dose: Not Given Insulin Human Regular (Novolin R) 0 unit SC ACHS [facility] PRN Reason: Protocol Last Admin: 06/15/17 11:30 Dose: Not Given Lactobacillus Acidophilus (Bacid Acidophilus) 1 cap PO BID [facility] Last Admin: 06/15/17 10:22 Dose: Not Given Lorazepam (Ativan) 0.5 mg PO BID [facility] Last Admin: 06/15/17 10:22 Dose: Not Given Metoclopramide HCl (Reglan) 5 mg IVP Q8H [facility] Last Admin: 06/15/17 07:43 Dose: 5 mg Metronidazole (Flagyl) 500 mg PO Q8 [facility] PRN Reason: Protocol Last Admin: 06/15/17 07:38 Dose: Not Given Tacrolimus (Prograf Cap) 1 mg PO Q12 [facility] Last Admin: 06/15/17 10:23 Dose: Not Given Temazepam (Restoril) 30 mg PO HS PRN PRN Reason: Insomnia Last Admin: 06/14/17 22:38 Dose: 30 mg - Labs Labs: 06/14/17 07:09 06/15/17 07:24 PT 13.0 SECONDS (9.7-12.2) H 06/14/17 07:09 INR 1.2 06/14/17 07:09 APTT 30 SECONDS (21-34) 06/14/17 07:09 - Constitutional Appears: No Acute Distress, Chronically Ill - Head Exam Head Exam: ATRAUMATIC, NORMAL INSPECTION, NORMOCEPHALIC - Eye Exam Eye Exam: EOMI, Normal appearance, PERRL Pupil Exam: NORMAL ACCOMODATION, PERRL - Respiratory Exam Respiratory Exam: Clear to Ausculation Bilateral, NORMAL BREATHING PATTERN - Cardiovascular Exam Cardiovascular Exam: REGULAR RHYTHM, +S1, +S2. absent: Murmur - GI/Abdominal Exam GI & Abdominal Exam: Soft, Normal Bowel Sounds. absent: Tenderness Assessment and Plan (1) Bloody diarrhea Status: Acute (2) Colitis Status: Acute (3) Dehydration Status: Acute (4) Intractable diarrhea Status: Acute (5) Weakness Status: Acute
--- NOTE | 2017-06-15 13:11 | CP.PCM.PN ---
Subjective - Date & Time of Evaluation Date of Evaluation: 06/15/17 Time of Evaluation: 18:40 - Subjective Subjective: Pt seen and examined, co persistant diarrhea, stool c.diff is neg,stool culturs neg, she is having low grade fever, blood sugars are fluctuating Objective - Vital Signs/Intake and Output Vital Signs (last 24 hours): Temp Pulse Resp BP Pulse Ox 98.1 F 75 20 157/78 H 97 06/15/17 07:57 06/15/17 07:57 06/15/17 07:57 06/15/17 07:57 06/15/17 07:57 Intake and Output: 06/15/17 06/15/17 06:59 18:59 Intake Total 500 0 Balance 500 0 - Medications Medications: Current Medications Acetaminophen (Tylenol 325mg Tab) 325 mg PO Q6H PRN PRN Reason: Fever >100.4 F Bismuth Subsalicylate (Pepto-Bismol) 262 mg PO Q4 PRN PRN Reason: Diarrhea Clonidine HCl (Catapres) 0.1 mg PO BID [facility] Last Admin: 06/15/17 10:22 Dose: Not Given Ergocalciferol (Drisdol 50,000 Intl Units Cap) 1 cap PO QWK [facility] Famotidine (Pepcid) 20 mg PO DAILY [facility] Last Admin: 06/15/17 10:23 Dose: Not Given Heparin Sodium (Porcine) (Heparin) 5,000 units SC Q8 [facility] Last Admin: 06/15/17 07:39 Dose: Not Given Ciprofloxacin (Cipro 200mg/100ml D5w) 100 mls @ 67 mls/hr IVPB Q12H [facility] PRN Reason: Protocol Last Admin: 06/15/17 10:49 Dose: 67 mls/hr Sodium Chloride (Sodium Chloride 0.9%) 1,000 mls @ 80 mls/hr IV .[id number] [facility] Insulin Detemir (Levemir) 8 unit SC HS [facility] Last Admin: 06/14/17 22:35 Dose: Not Given Insulin Human Regular (Novolin R) 5 unit SC TIDPC [facility] Last Admin: 06/15/17 09:22 Dose: Not Given Insulin Human Regular (Novolin R) 0 unit SC ACHS [facility] PRN Reason: Protocol Last Admin: 06/15/17 11:30 Dose: Not Given Lactobacillus Acidophilus (Bacid Acidophilus) 1 cap PO BID [facility] Last Admin: 06/15/17 10:22 Dose: Not Given Lorazepam (Ativan) 0.5 mg PO BID [facility] Last Admin: 06/15/17 10:22 Dose: Not Given Metoclopramide HCl (Reglan) 5 mg IVP Q8H [facility] Last Admin: 06/15/17 07:43 Dose: 5 mg Metronidazole (Flagyl) 500 mg PO Q8 [facility] PRN Reason: Protocol Last Admin: 06/15/17 07:38 Dose: Not Given Tacrolimus (Prograf Cap) 1 mg PO Q12 [facility] Last Admin: 06/15/17 10:23 Dose: Not Given Temazepam (Restoril) 30 mg PO HS PRN PRN Reason: Insomnia Last Admin: 06/14/17 22:38 Dose: 30 mg - Labs Labs: 06/14/17 07:09 06/15/17 07:24 PT 13.0 SECONDS (9.7-12.2) H 06/14/17 07:09 INR 1.2 06/14/17 07:09 APTT 30 SECONDS (21-34) 06/14/17 07:09 - Constitutional Appears: No Acute Distress - Head Exam Head Exam: ATRAUMATIC, NORMAL INSPECTION, NORMOCEPHALIC - Eye Exam Eye Exam: EOMI, Normal appearance, PERRL Pupil Exam: NORMAL ACCOMODATION, PERRL - Respiratory Exam Respiratory Exam: Clear to Ausculation Bilateral, NORMAL BREATHING PATTERN - Cardiovascular Exam Cardiovascular Exam: REGULAR RHYTHM, +S1, +S2. absent: Murmur - GI/Abdominal Exam GI & Abdominal Exam: Soft, Normal Bowel Sounds. absent: Tenderness Assessment and Plan (1) Bloody diarrhea Assessment & Plan: s/p endoscopy unknown etiology neg stool culture med /supportive management Status: Acute (2) Colitis Status: Acute (3) Dehydration Status: Acute (4) Intractable diarrhea Status: Acute (5) Weakness Status: Acute
[2017-06-15] MEDS ORDERED: Bismuth Subsalicylate 262 mg Chew Tab PO PRN (13:30)
[2017-06-15] MEDS ORDERED: (Novolin R) Insulin Human Regular 100 units/ml vial ONE (14:16)
[2017-06-15] MEDS ORDERED: Lactated Ringer's 1,000 ML IV ONE (14:17)
[2017-06-15] MEDS ORDERED: Propofol 10 mg/ml Inj (20 ML) ONE ×2 (14:24→14:44)
[2017-06-15] MEDS ORDERED: Midazolam 2 MG/2 ML VIAL ONE (14:26)
[2017-06-15] MEDS: Sodium Chloride 0.9% 1,000 ML IV SCH (16:19)
[2017-06-15] MEDS: Insulin Detemir 100 units/ml Vial (Levemir) SC SCH (21:14)
[2017-06-15] MEDS ORDERED: Insulin Detemir 100 units/ml Vial (Levemir) SC SCH (22:22)
[2017-06-16 01:09] VITALS: RESP 20; TEMP 98.1
[2017-06-16] MEDS: Sodium Chloride 0.9% 1,000 ML IV SCH ×2 (01:51→05:04)
[2017-06-16 07:51] VITALS: BP 133/71; PULSE 85; O2SAT 98
[2017-06-16 07:56] LABS: BASO % 1.1 % (0.0-2.0); EOS # 0.2 K/uL (0.0-0.7); EOS % 7.2 % (0.0-4.0); HEMOGLOBIN 9.5 g/dL (11.0-16.0); LYMPH # 0.7 K/uL (1.0-4.3); LYMPH % 29.1 % (20.0-40.0); MEAN CELL VOLUME 86.1 fL (81.0-99.0); MEAN CORPUSCULAR HEMOGLOBIN 29.3 pg (27.0-31.0); MONO # 0.3 K/uL (0.0-0.8); MONO % 10.6 % (0.0-10.0); NEUT # 1.2 K/uL (1.8-7.0); NRBC % 0.1 % (0.0-2.0); RBC 3.23 Mil/uL (3.80-5.20); WHITE BLOOD COUNT 2.4 K/uL (4.8-10.8)
[2017-06-16] MEDS: (Novolin R) Insulin Human Regular 100 units/ml vial SC SCH ×4 (08:06→12:30)
[2017-06-16 08:10] LABS: ALB/GLOB RATIO 0.9 (1.0-2.1); ALBUMIN 2.7 g/dL (3.5-5.0); ALT/SGPT 17 U/L (9-52); AST/SGOT 46 U/L (14-36); BLOOD UREA NITROGEN 7 mg/dL (7-17); CALCIUM 8.2 mg/dl (8.6-10.4); GFR AFRICAN-AMERICAN > 60; GFR NON-AFRICAN AMERICAN > 60
[2017-06-16] MEDS: Ciprofloxacin 200mg/100ml D5W 100 ML IVPB SCH (09:20)
[2017-06-16] MEDS: Lactobacillus Acidophilus 500 MU Cap PO SCH (09:20)
--- NOTE | 2017-06-16 11:15 | PN ---
DATE: LOCATION: [facility], bed A. SUBJECTIVE: This is a 77-year-old female seen and examined in rounds without significant clinical changes or reported active bleeding, tolerating oral intake well. The entire chart is reviewed including but not limited to the most recent lab and radiology study results, current and the previous medication list, current and the previous medical events. Today's blood glucose level is 136 and the patient previously reported to have low hemoglobin and hematocrit, with low calcium. Pathology report from gastric and colon mucosa still pending. The patient is post upper and lower endoscopy. PHYSICAL EXAMINATION GENERAL: A 77-year-old female. VITAL SIGNS: Afebrile, with pulse of 80, respiratory rate of 20 to 22, blood pressure of 110/64. HEENT: Showed pale, dry oral mucous membranes. Nonicteric sclerae. LUNGS: Few scattered crepitations. Decreased air entry at bases. HEART: Positive S1 and S2. ABDOMEN: Soft, bowel sounds are present. No mass or organomegaly. No rebound tenderness or guarding. EXTREMITIES: Without edema, clubbing, or cyanosis. NEUROLOGIC: No reported new neurological deficits, sensory or motor. No reported new focal deficits. IMPRESSION: 1. Peptic ulcer disease. 2. Diverticulosis with left-sided colitis. 3. Anemia, most likely secondary to above. 4. Poorly controlled diabetes mellitus. 5. Bloody diarrhea before secondary to above. 6. Past medical history including mainly depression and anxiety syndrome, as well as history of hypertension with pneumonia. SUGGESTIONS: 1. Continue current management. 2. Follow up cancer markers. 3. Further recommendations to follow. Teresita Lo MD
--- NOTE | 2017-06-16 15:05 | CP.PCM.PN ---
Subjective - Date & Time of Evaluation Date of Evaluation: 06/16/17 Time of Evaluation: 11:00 - Subjective Subjective: Alert, awake, follows commands. Objective - Vital Signs/Intake and Output Vital Signs (last 24 hours): Temp Pulse Resp BP Pulse Ox 98.1 F 85 20 133/71 98 06/16/17 07:50 06/16/17 07:50 06/16/17 07:50 06/16/17 07:50 06/16/17 07:50 Intake and Output: 06/16/17 06/16/17 06:59 18:59 Intake Total 1660 1440 Balance 1660 1440 - Medications Medications: Current Medications Acetaminophen (Tylenol 325mg Tab) 325 mg PO Q6H PRN PRN Reason: Fever >100.4 F Bismuth Subsalicylate (Pepto Bismol) 262 mg PO Q4 PRN PRN Reason: Diarrhea Last Admin: 06/16/17 09:22 Dose: 262 mg Clonidine HCl (Catapres) 0.1 mg PO BID [facility] Last Admin: 06/16/17 09:20 Dose: 0.1 mg Ergocalciferol (Drisdol 50,000 Intl Units Cap) 1 cap PO QWK [facility] Famotidine (Pepcid) 20 mg PO DAILY [facility] Last Admin: 06/16/17 09:21 Dose: 20 mg Heparin Sodium (Porcine) (Heparin) 5,000 units SC Q8 [facility] Last Admin: 06/16/17 13:09 Dose: 5,000 units Ciprofloxacin (Cipro 200mg/100ml D5w) 100 mls @ 67 mls/hr IVPB Q12H [facility] PRN Reason: Protocol Last Admin: 06/16/17 09:20 Dose: 67 mls/hr Sodium Chloride (Sodium Chloride 0.9%) 1,000 mls @ 80 mls/hr IV .[id number] [facility] Last Admin: 06/16/17 05:04 Dose: 80 mls/hr Insulin Detemir (Levemir) 12 unit SC HS [facility] Insulin Human Regular (Novolin R) 5 unit SC TIDPC [facility] Last Admin: 06/16/17 12:30 Dose: 5 unit Insulin Human Regular (Novolin R) 0 unit SC ACHS [facility] PRN Reason: Protocol Last Admin: 06/16/17 12:00 Dose: Not Given Lactobacillus Acidophilus (Bacid Acidophilus) 1 cap PO BID [facility] Last Admin: 06/16/17 09:20 Dose: 1 cap Lorazepam (Ativan) 0.5 mg PO BID [facility] Last Admin: 06/16/17 09:19 Dose: 0.5 mg Metoclopramide HCl (Reglan) 5 mg IVP Q8H [facility] Last Admin: 06/16/17 14:54 Dose: 5 mg Metronidazole (Flagyl) 500 mg PO Q8 [facility] PRN Reason: Protocol Last Admin: 06/16/17 13:07 Dose: 500 mg Tacrolimus (Prograf Cap) 1 mg PO Q12 [facility] Last Admin: 06/16/17 09:21 Dose: 1 mg Temazepam (Restoril) 30 mg PO HS PRN PRN Reason: Insomnia Last Admin: 06/15/17 22:00 Dose: 30 mg - Labs Labs: 06/16/17 07:37 06/16/17 07:37 PT 13.0 SECONDS (9.7-12.2) H 06/14/17 07:09 INR 1.2 06/14/17 07:09 APTT 30 SECONDS (21-34) 06/14/17 07:09 Assessment and Plan - Assessment and Plan (Free Text) Assessment: Patient admitted with diarrhea, weakness, s/p colonoscopy yesterday with peptic ulcer diseaes and colitis, seen and examined. Alert, awake, no acute diarrhea, tolerating diet today. Complaing of weakness and dizziness. Advised to be out of bed and ambulate as much possible. Discussed with DR Hall, plan to discharge home on po flagyl and lomotil prn. Advised to follow up in the office in 1 week.
--- NOTE | 2017-06-16 16:48 | CP.PCM.PN ---
Subjective - Date & Time of Evaluation Date of Evaluation: 06/16/17 Time of Evaluation: 17:00 - Subjective Subjective: Pt seen and examined, co persistant diarrhea, stool c.diff is neg,stool culturs neg, she is having low grade fever, blood sugars are fluctuating Objective - Vital Signs/Intake and Output Vital Signs (last 24 hours): Temp Pulse Resp BP Pulse Ox 98.1 F 85 20 133/71 98 06/16/17 07:50 06/16/17 14:45 06/16/17 07:50 06/16/17 07:50 06/16/17 14:45 Intake and Output: 06/16/17 06/16/17 06:59 18:59 Intake Total 1660 1440 Balance 1660 1440 - Medications Medications: Current Medications Acetaminophen (Tylenol 325mg Tab) 325 mg PO Q6H PRN PRN Reason: Fever >100.4 F Bismuth Subsalicylate (Pepto Bismol) 262 mg PO Q4 PRN PRN Reason: Diarrhea Last Admin: 06/16/17 09:22 Dose: 262 mg Clonidine HCl (Catapres) 0.1 mg PO BID [facility] Last Admin: 06/16/17 09:20 Dose: 0.1 mg Ergocalciferol (Drisdol 50,000 Intl Units Cap) 1 cap PO QWK [facility] Famotidine (Pepcid) 20 mg PO DAILY [facility] Last Admin: 06/16/17 09:21 Dose: 20 mg Heparin Sodium (Porcine) (Heparin) 5,000 units SC Q8 [facility] Last Admin: 06/16/17 13:09 Dose: 5,000 units Ciprofloxacin (Cipro 200mg/100ml D5w) 100 mls @ 67 mls/hr IVPB Q12H [facility] PRN Reason: Protocol Last Admin: 06/16/17 09:20 Dose: 67 mls/hr Sodium Chloride (Sodium Chloride 0.9%) 1,000 mls @ 80 mls/hr IV .[id number] [facility] Last Admin: 06/16/17 05:04 Dose: 80 mls/hr Insulin Detemir (Levemir) 12 unit SC HS [facility] Insulin Human Regular (Novolin R) 5 unit SC TIDPC [facility] Last Admin: 06/16/17 12:30 Dose: 5 unit Insulin Human Regular (Novolin R) 0 unit SC ACHS [facility] PRN Reason: Protocol Last Admin: 06/16/17 12:00 Dose: Not Given Lactobacillus Acidophilus (Bacid Acidophilus) 1 cap PO BID [facility] Last Admin: 06/16/17 09:20 Dose: 1 cap Lorazepam (Ativan) 0.5 mg PO BID [facility] Last Admin: 06/16/17 09:19 Dose: 0.5 mg Metoclopramide HCl (Reglan) 5 mg IVP Q8H [facility] Last Admin: 06/16/17 14:54 Dose: 5 mg Metronidazole (Flagyl) 500 mg PO Q8 [facility] PRN Reason: Protocol Last Admin: 06/16/17 13:07 Dose: 500 mg Tacrolimus (Prograf Cap) 1 mg PO Q12 [facility] Last Admin: 06/16/17 09:21 Dose: 1 mg Temazepam (Restoril) 30 mg PO HS PRN PRN Reason: Insomnia Last Admin: 06/15/17 22:00 Dose: 30 mg - Labs Labs: 06/16/17 07:37 06/16/17 07:37 PT 13.0 SECONDS (9.7-12.2) H 06/14/17 07:09 INR 1.2 06/14/17 07:09 APTT 30 SECONDS (21-34) 06/14/17 07:09 Assessment and Plan (1) Bloody diarrhea Status: Acute (2) Colitis Status: Acute (3) Dehydration Status: Acute (4) Intractable diarrhea Status: Acute (5) Weakness Status: Acute
[2017-06-20] MEDS ORDERED: Ergocalciferol 50,000 Intl Units Cap PO SCH (10:00)
[2017-06-21 04:44] LABS: STOOL SODIUM 87.4 mEq/L
--- NOTE | 2017-07-02 15:01 | DS ---
CHIEF COMPLAINT: Diarrhea. DISCHARGE DIAGNOSES: Clostridium difficile colitis, dehydration, uncontrolled diabetes, hypertension, and chronic hepatitis B. HISTORY OF PRESENT ILLNESS: This is a 77-year-old female well known to me with history of chronic hepatitis B, status post liver transplant. She came in with loose watery stool, bloody diarrhea, generalized weakness, frequency of urination, polyuria, and polydipsia. Diarrhea is crampy, abdominal pain with loose watery stool, occasionally mixed with blood and abdominal pain. The patient was admitted to the floor. Stool was positive for C. diff. She was started on vancomycin. The patient did well and she was discharged. Vitals stable. WBC 2.4, hematocrit 9.5, hematocrit 27.8, platelets 131. Electrolytes: Sodium 140, potassium 3.7, chloride 106, bicarbonate 23. BUN 7, creatinine 0.7. GFR more than 60. Plasma glucose 120. CONDITION UPON DISCHARGE: Stable. She will continue vancomycin. Westley Hall MD
== END 2017-06-16 17:54 | disposition home or self-care (01) | DRG 372 ==
LOC: C.ER 09:37 → C.9E 12:22 → C.3T 13:06
PROVIDERS: ADMIT Internal Medicine; ATTEND Internal Medicine
PROC: 0DB68ZX Excision of Stomach, Via Natural or Artificial Opening Endoscopic, Diagnostic (ICD-10-PCS; principal; 2017-06-13)
PROC: 0DDM8ZX Extraction of Descending Colon, Via Natural or Artificial Opening Endoscopic, Diagnostic (ICD-10-PCS; 2017-06-13)
DX: A04.72 Enterocolitis due to Clostridium difficile, not specified as recurrent (principal); B18.1 Chronic viral hepatitis B without delta-agent; Z94.4 Liver transplant status; E11.65 Type 2 diabetes mellitus with hyperglycemia; D64.9 Anemia, unspecified; F32.9 Major depressive disorder, single episode, unspecified; K27.9 Peptic ulcer, site unspecified, unspecified as acute or chronic, without hemorrhage or perforation; K57.90 Diverticulosis of intestine, part unspecified, without perforation or abscess without bleeding; M17.12 Unilateral primary osteoarthritis, left knee; F41.9 Anxiety disorder, unspecified; K29.50 Unspecified chronic gastritis without bleeding; I25.10 Atherosclerotic heart disease of native coronary artery without angina pectoris; E86.0 Dehydration; I10 Essential (primary) hypertension; Z87.01 Personal history of pneumonia (recurrent)

== ENCOUNTER 2017-06-29 11:25 | Inpatient (IN) | payer MEDICARE, MEDICAID ==
[2017-06-29 11:25] VITALS: BMI 21.2
[2017-06-29 13:04] LABS: BASO % 0.4 % (0.0-2.0); EOS # 0.1 K/uL (0.0-0.7); EOS % 2.8 % (0.0-4.0); HEMOGLOBIN 10.3 g/dL (11.0-16.0); LYMPH # 0.8 K/uL (1.0-4.3); LYMPH % 20.9 % (20.0-40.0); MEAN CELL VOLUME 84.6 fL (81.0-99.0); MEAN CORPUSCULAR HEMOGLOBIN 28.2 pg (27.0-31.0); MEAN CORPUSCULAR HGB CONC 33.3 g/dL (33.0-37.0); MEAN PLATELET VOLUME 8.6 fL (7.2-11.7); MONO # 0.2 K/uL (0.0-0.8); MONO % 5.8 % (0.0-10.0); NEUT # 2.8 K/uL (1.8-7.0); NEUT % 70.1 % (50.0-75.0); RBC 3.64 Mil/uL (3.80-5.20); RED CELL DISTRIBUTION WIDTH 16.5 % (11.5-14.5)
--- NOTE | 2017-06-29 13:20 | RAD ---
HISTORY: midline tenderness COMPARISON: No prior. FINDINGS: BONES: There is normal alignment of the thoracic vertebral bodies. There is normal thoracic kyphosis. There is diffuse bone demineralization. There is no acute fracture or bone destruction. DISC SPACES: There is multilevel degenerative disc disease with anterior spurring and mild reduced disc heights. SOFT TISSUES: Normal. OTHER FINDINGS: There are atherosclerotic aortic calcifications. Multiple surgical clips in the right upper quadrant most compatible with cholecystectomy. IMPRESSION: No acute fracture. Mild multilevel degenerative disc disease.
[2017-06-29 13:28] LABS: ALBUMIN 3.8 g/dL (3.5-5.0); ALT/SGPT 26 U/L (9-52); AST/SGOT 59 U/L (14-36); BLOOD UREA NITROGEN 16 mg/dL (7-17); CALCIUM 9.3 mg/dl (8.6-10.4); GFR AFRICAN-AMERICAN > 60; GFR NON-AFRICAN AMERICAN > 60; LIPASE 64 U/L (23-300)
[2017-06-29 13:54] LABS: SQUAMOUS EPITHIAL < 1 /hpf (0-5); URINE BILIRUBIN NEGATIVE (NEGATIVE); URINE BLOOD NEGATIVE (NEGATIVE); URINE CLARITY Hazy (Clear); URINE COLOR Amber (YELLOW); URINE GLUCOSE (UA) 1+ mg/dL (Normal); URINE LEUKOCYTE ESTERASE TRACE Leu/uL (Negative); URINE PROTEIN NEGATIVE (NEGATIVE); URINE UROBILINOGEN NORMAL mg/dL (0.2-1.0)
[2017-06-29] MEDS ORDERED: Iodixanol 320 MG/ML 100 ML BOTTLE IV ONE (16:11)
[2017-06-29] MEDS ORDERED: Enoxaparin 40 mg Syringe SC ONE (16:22)
--- NOTE | 2017-06-29 16:25 | C.PDOC ---
History Of Present Illness 77 y/o female with multiple medical problems and recent hospitalizations, comes to ED with bilateral leg pain x 1 day with difficulty walking due to pain. pt denies any trauma, fever or chills. pt c/o pain to mid back, worse with movement, no cp or sob. Time Seen by Provider: 06/29/17 11:46 Chief Complaint (Nursing): Back Pain History Per: Patient History/Exam Limitations: no limitations Onset/Duration Of Symptoms: Days (1) Current Symptoms Are (Timing): Still Present Quality Of Discomfort: "Pain" Severity: Moderate Past Medical History Reviewed: Historical Data, Nursing Documentation, Vital Signs Vital Signs: Last Vital Signs Temp 97.7 F 07/05/17 15:00 Pulse 69 07/05/17 16:32 Resp 20 07/05/17 15:00 BP 146/86 07/05/17 15:00 Pulse Ox 99 07/05/17 15:00 - Medical History PMH: Anxiety, Arthritis (L KNEE; BACK), Bipolar Disorder, Bronchitis, CAD, Depression, Diabetes, Fractures (L leg), Gastritis, HTN, Peripheral Edema, Pneumonia, Pneumothorax (effusion) Denies: Anemia, Asthma, Atrial Fibrillation, Cardia Arrhythmia, CHF, Crohn's Disease, Diverticulitis, Emphysema, Gall Bladder Disease, HIV, Hypercholesterolemia, Hyperthyroidism, Hypothyroidism, Mitral Valve Prolapse, Osteoporosis, Pancreatitis, Paranoia, Post Traumatic Stress Disorder, Pulmonary Embolism, Chronic Kidney Disease, Rheumatoid Arthritis, Schizophrenia, Sickle Cell Disease, Sexually Transmitted Disease, Sleep Apnea Comment Only: COPD (DENIES) Surgical History: (x 2) Denies: Appendectomy, CABG, Carotid Endarterectomy, Cholecystectomy, Coronary Stent, Pacemaker, Tonsillectomy - [facility] Procedures (06/13/17) CLOSED ENDOSCOPIC BIOPSY OF LARGE INTESTINE (08/31/13) DRAINAGE OF RIGHT LOWER LOBE BRONCHUS, ENDO, DIAGN (08/03/15) DRAINAGE OF RIGHT MIDDLE LOBE BRONCHUS, ENDO, DIAGN (08/03/15) DRAINAGE OF SPINAL CANAL, PERCUTANEOUS APPROACH, DIAGNOSTIC (08/03/15) ESOPHAGOGASTRODUODENOSCOPY [EGD] W/CLOSED BIOPSY (08/31/13) EXCISION OF STOMACH, ENDO, DIAGN (06/13/17) GROUP PSYCHOTHERAPY (05/02/17) INDIVIDUAL PSYCHOTHERAPY, SUPPORTIVE (05/02/17) INSERT INTERCOSTAL CATH (03/15/14) INSERTION OF ENDOTRACHEAL AIRWAY INTO TRACHEA, VIA OPENING (08/03/15) INSERTION OF INFUSION DEV INTO SUP VENA CAVA, PERC APPROACH (08/03/15) INTRODUCTION OF SERUM/TOX/VACCINE INTO MUSCLE, PERC APPROACH (04/20/17) OTHER PLEURAL INCISION (03/15/14) REMOVAL OF FB NOS (05/25/13) RESPIRATORY VENTILATION, GREATER THAN 96 CONSECUTIVE HOURS (08/03/15) TRANSFUSE NONAUT PLATELETS IN PERIPH VEIN, PERC (08/03/15) Family History: States: Unknown Family Hx - Social History Hx Tobacco Use: No Hx Alcohol Use: No Hx Substance Use: No - Immunization History Hx Tetanus Toxoid Vaccination: Yes Hx Influenza Vaccination: Yes Hx Pneumococcal Vaccination: Yes Review Of Systems Constitutional: Negative for: Fever, Chills Cardiovascular: Negative for: Chest Pain Respiratory: Negative for: Cough, Shortness of Breath Gastrointestinal: Negative for: Nausea, Vomiting, Abdominal Pain Musculoskeletal: Positive for: Leg Pain (bilateral) Skin: Negative for: Rash Neurological: Negative for: Weakness, Numbness Physical Exam - Physical Exam Appears: Non-toxic, No Acute Distress, Chronically Ill Skin: Warm, Dry Head: Atraumatic, Normacephalic Chest: Symmetrical, No Deformity, No Tenderness Respiratory: No Decreased Breath Sounds, No Wheezing Back: Vertebral Tenderness (mid thoracic area) Extremity: No Pedal Edema, Calf Tenderness, No Swelling, Other (bilatertal anterior and posterior calf tenderness to palpation. ) Pulses: Left Dorsalis Pedis: Normal, Right Dorsalis Pedis: Normal Neurological/Psych: Oriented x3, Normal Speech, Normal Cognition, Normal Motor, Normal Sensation ED Course And Treatment - Laboratory Results Result Diagrams: 07/04/17 07:16 07/05/17 07:32 ECG: Interpreted By Me, Viewed By Me ECG Rhythm: Sinus Rhythm ECG Interpretation: Normal Rate From EC (BPM) O2 Sat by Pulse Oximetry: 99 (ON RA) Pulse Ox Interpretation: Normal Medical Decision Making Medical Decision Making: pt found to have bilateral dvt on venous doppler. discussed with Dr Hall; will give lovenox and admit to telemetry. Disposition Discussed With : Westley Hall Doctor Will See Patient In The: Hospital - Disposition Disposition: HOSPITALIZED Disposition Time: 16:26 Condition: FAIR - Clinical Impression Clinical Impression: DVT, bilateral lower limbs
--- NOTE | 2017-06-29 17:11 | CT ---
PROCEDURE: CT Chest with contrast (Pulmonary Angiogram) HISTORY: back pain, elevated ddimer COMPARISON: None available. TECHNIQUE: Axial computed tomography images were obtained of the chest in the pulmonary arterial phase of enhancement. Coronal and sagittal reformatted images were created and reviewed. Intravenous contrast dose: Visipaque 320, 100 cc Radiation dose: Total exam DLP = 249.35 mGy-cm. This CT exam was performed using one or more of the following dose reduction techniques: Automated exposure control, adjustment of the mA and/or kV according to patient size, and/or use of iterative reconstruction technique. FINDINGS: PULMONARY ARTERIES: Unremarkable. No pulmonary embolism. AORTA: No acute findings. No thoracic aortic aneurysm. LUNGS: A stable 6.2 mm nodule is identified in the right lower lobe [place] image [id number] series 4 previously measuring approximately 5.7 mm on 08/06/2015. Remains noncalcified there is only slightly larger when compared prior CT of the chest 03/13/2014 when it measured 5.8 mm. A 3.3 mm nodule is seen more inferiorly in image 71 and is stable in the interval as well. No definitive new pulmonary masses identified bilaterally. No acute infiltrate seen bilaterally either. Limited fibrotic changes seen at the left base once again with bilateral lower lobe limited ground-glass opacity. No alveolitis bilaterally. Central airways appear clear. PLEURAL SPACES: Unremarkable. No effusion or pneuomothorax. HEART: Dense mitral annular calcifications are reiterated. No cardiomegaly. No significant pericardial effusion. LYMPH NODES: No lymphadenopathy. BONES, CHEST WALL: Unremarkable. No fracture or destructive lesion OTHER FINDINGS: Calcific changes again seen in the region of the inferior vena cava. IMPRESSION: 1. No CT evidence of acute pulmonary embolus bilaterally. 2. Stable right lower lobe pulmonary nodules dating back at least to prior chest CT dated 08/06/2015. Clinically correlate with obstructive need (high risk) for potential follow-up chest CT in 12 months. 3. No acute pneumothorax, alveolitis, pleural or pericardial effusion. Limited bilateral basilar ground-glass changes are seen. 4. Incidental calcifications seen at the vena cava region once again.
[2017-06-29] MEDS: Sodium Chloride 0.9% 1,000 ML IV SCH (17:47)
[2017-06-29] MEDS ORDERED: Sodium Chloride 0.9% 1,000 ML ONE (17:51)
[2017-06-29] MEDS ORDERED: Enoxaparin 60 mg Syringe SC ONE (19:15)
[2017-06-29 19:46] LABS: PROTHROMBIN TIME 11.3 SECONDS (9.7-12.2)
--- NOTE | 2017-06-29 21:34 | CP.PCM.HP ---
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 ago being followed at [facility], recently she was in [facility] with intractable diarrhea, she is known diabetic, hypertensive,and case of depression and anxiety disorder pt came in with progressively increasing b/l leg pain.associated with calf pain no chest pain , shortness of beath, cough, fever, chills, rigors, admits having tingling and nubmness in hands and feet Present on Admission - Present on Admission Any Indicators Present on Admission: Yes Review of Systems - Review of Systems Systems not reviewed;Unavailable: Acuity of Condition - Constitutional Constitutional: Fatigue, Lethargy, Malaise, Weakness - EENT Eyes: absent: As Per HPI, Blind Spots, Blurred Vision, Change in Vision, Decreased Night Vision, Diplopia, Discharge, Dry Eye, Exophthalmos, Floaters, Irritation, Itchy Eyes, Loss of Peripheral Vision, Pain, Photophobia, Requires Corrective Lenses, Sees Flashes, Spots in Vision, Tunnel Vision, Other Visual Disturbances, Loss of Vision, Other - Breasts Breasts: absent: As Per HPI, Change in Shape, Mass, Pain, Nipple Discharge, Nipple Inversion, Skin Changes, Swelling, Other - Cardiovascular Cardiovascular: Radiating Pain. absent: As Per HPI, Acrocyanosis, Chest Pain, Chest Pain at Rest, Chest Pain with Activity, Claudication, Diaphoresis, Dyspnea , Dyspnea on Exertion, Edema, Irregular Heart Rhythm, Pain Radiating to Arm/Neck /Jaw, Leg Edema, Leg Ulcers, Lightheadedness, Orthopnea, Palpitations, Paroxysmal Nocturnal Dyspnea, Pedal Edema, Rapid Heart Rate, Slow Heart Rate, Syncope, Other - Respiratory Respiratory: absent: As Per HPI, Cough, Dyspnea, Hemoptysis, Dyspnea on Exertion , Wheezing, Snoring, Stridor, Pain on Inspiration, Chest Congestion, Excessive Mucous Production, Change in Mucous Color, Pain with Coughing, Other - Gastrointestinal Gastrointestinal: Diarrhea. absent: As Per HPI, Abdominal Pain, Belching, Bloating, Change in Bowel Habits, Change in Stool Character, Coffee Ground Emesis, Constipation, Cramping, Dyspepsia, Dysphagia, Early Satiety, Excessive Flatus, Fecal Incontinence, Heartburn, Hematemesis, Hematochezia, Loose Stools, Melena, Nausea, Odynophagia, Temesmus, Vomiting, Other - Genitourinary Genitourinary: absent: As Per HPI, Change in Urinary Stream, Difficulty Urinating, Dysuria, Flank Pain, Hematuria, Pyuria, Nocturia, Urinary Incontinence, Urinary Frequency, Urinary Hesitance, Urinary Urgency, Voiding Freq/Small Amts, Freq UTI, Hx Renal/Bladder Calculi, Hx /Renal Surgery, Bladder Distension, Other - Musculoskeletal Musculoskeletal: Back Pain, Muscle Weakness, Numbness, Tingling - Integumentary Integumentary: absent: As Per HPI, Acne, Alopecia, Bleeding Lesions, Change in Hair, Change in Nails, Change in Pigmentation, Changing Lesions, Dry Skin, Erythema, Furuncle, Hirsutism, Lesions, New Lesions, Non-Healing Lesions, Photosensitivity, Pruritus, Rash, Skin Pain, Skin Ulcer, Sores, Striae, Swelling , Unusual Bruising, Wounds, Jaundice, Other - Neurological Neurological: Weakness. absent: As Per HPI, Abnormal Gait, Abnormal Hearing, Abnormal Movements, Abnormal Speech, Behavioral Changes, Burning Sensations, Confusion, Convulsions, Disequilibrium, Dizziness, Numbness, Focal Weakness, Frequent Falls, Headaches, Lack of Coordination, Loss of Vision, Memory Loss, Paresthesias, Radicular Pain, Restless Legs, Sensory Deficit, Syncope, Tingling , Tremor, Vertigo, Other Visual Disturbances, Other - Psychiatric Psychiatric: Anxiety, Depression - Endocrine Endocrine: absent: As Per HPI, Change in Body Appearance, Change in Libido, Cold Intolorance, Deepening of Voice, Excessive Sweating, Fatigue, Flushing, Heat Intolorance, Increase in Ring/Shoe/Hat Size, Palpitations, Polydipsia, Polyphagia, Polyuria, Other - Hematologic/Lymphatic Hematologic: absent: As Per HPI, Easy Bleeding, Easy Bruising, Lymphadenopathy, Other Past Patient History - Infectious Disease Hx of Infectious Diseases: None - Past Medical History & Family History Past Medical History?: Yes - Past Social History Smoking Status: Never Smoked - CARDIAC Hx Atrial Fibrillation: No Hx Cardia Arrhythmia: No Hx Congestive Heart Failure: No Hx Hypercholesterolemia: No Hx Hypertension: Yes Hx Mitral Valve Prolapse: No Hx Pacemaker: No Hx Peripheral Edema: Yes - PULMONARY Hx Asthma: No Hx Bronchitis: Yes Hx Chronic Obstructive Pulmonary Disease (COPD): (DENIES) Hx Emphysema: No Hx Pneumonia: Yes Hx Pulmonary Embolism: No Hx Sleep Apnea: No - NEUROLOGICAL Hx Neurological Disorder: No - HEENT Hx HEENT Problems: No Hx Blind: Yes (Right eye blind) - RENAL Hx Chronic Kidney Disease: No - ENDOCRINE/METABOLIC Hx Hyperthyroidism: No Hx Hypothyroidism: No - HEMATOLOGICAL/ONCOLOGICAL Hx Anemia: No Hx Human Immunodeficiency Virus (HIV): No Hx Sickle Cell Disease: No - INTEGUMENTARY Hx Dermatological Problems: No - MUSCULOSKELETAL/RHEUMATOLOGICAL Hx Arthritis: Yes (L KNEE; BACK) Hx Falls: No Hx Fractures: Yes (L leg) Hx Osteoporosis: No Hx Rheumatoid Arthritis: No - GASTROINTESTINAL Hx Crohn's Disease: No Hx Diverticulitis: No Hx Gall Bladder Disease: No Hx Gastritis: Yes Hx Pancreatitis: No - GENITOURINARY/GYNECOLOGICAL Hx Sexually Transmitted Disorders: No - PSYCHIATRIC Hx Anxiety: Yes Hx Bipolar Disorder: Yes Hx Depression: Yes Hx Paranoia: No Hx Post Traumatic Stress Disorder: No Hx Schizophrenia: No Hx Substance Use: No - SURGICAL HISTORY Hx Appendectomy: No Hx Carotid Endarterectomy: No Hx Cholecystectomy: No Hx Coronary Artery Bypass Graft: No Hx Coronary Stent: No Hx Tonsillectomy: No - ANESTHESIA Hx Anesthesia: Yes Hx Anesthesia Reactions: No Hx Malignant Hyperthermia: No Meds Allergies/Adverse Reactions: Allergies Allergy/AdvReac Type Severity Reaction Status Date / Time No Known Allergies Allergy Verified 06/13/17 09:52 Physical Exam - Constitutional Appears: Well, No Acute Distress Additional comments: elderly female who looks weak and fragile - Eye Exam Eye Exam: EOMI, Normal appearance, PERRL Pupil Exam: NORMAL ACCOMODATION, PERRL - Respiratory Exam Respiratory Exam: Clear to Auscultation Bilateral, NORMAL BREATHING PATTERN - Cardiovascular Exam Cardiovascular Exam: REGULAR RHYTHM - GI/Abdominal Exam GI & Abdominal Exam: Normal Bowel Sounds, Soft. absent: Tenderness - Extremities Exam Additional comments: no calf tenderness neg homans sign Results - Vital Signs Recent Vital Signs: Last Vital Signs Temp 98.2 F 06/29/17 18:08 Pulse 94 H 06/29/17 19:06 Resp 18 06/29/17 18:08 BP 160/80 H 06/29/17 18:08 Pulse Ox 98 06/29/17 18:08 - Labs Result Diagrams: 07/04/17 07:16 07/04/17 07:16 Labs: Laboratory Results - last 24 hr 06/29/17 06/29/17 06/29/17 12:56 12:56 12:56 WBC 4.0 L D RBC 3.64 L Hgb 10.3 L Hct 30.8 L MCV 84.6 MCH 28.2 MCHC 33.3 RDW 16.5 H Plt Count 119 L MPV 8.6 Neut % (Auto) 70.1 Lymph % (Auto) 20.9 [place] % (Auto) 5.8 Eos % (Auto) 2.8 Baso % (Auto) 0.4 Neut # (Auto) 2.8 Lymph # (Auto) 0.8 L [place] # (Auto) 0.2 Eos # (Auto) 0.1 Baso # (Auto) 0.0 Differential Comment PT INR APTT D-Dimer, Quantitative 2460 H Sodium 133 Potassium 4.2 Chloride 95 L Carbon Dioxide 26 Anion Gap 16 BUN 16 Creatinine 0.8 Est GFR ( Amer) > 60 Est GFR (Non-Af Amer) > 60 Random Glucose 252 H Calcium 9.3 Total Bilirubin 0.7 AST 59 H D ALT 26 Alkaline Phosphatase 181 H D Troponin I < 0.0120 Total Protein 7.6 Albumin 3.8 Globulin 3.9 Albumin/Globulin Ratio 1.0 Lipase 64 Urine Color Urine Clarity Urine pH Ur Specific [place] Urine Protein Urine Glucose (UA) Urine Ketones Urine Blood Urine Nitrate Urine Bilirubin Urine Urobilinogen Ur Leukocyte Esterase Urine WBC (Auto) Urine RBC (Auto) Ur Squamous Epith Cells Hyaline Casts 06/29/17 06/29/17 13:42 19:33 WBC RBC Hgb Hct MCV MCH MCHC RDW Plt Count MPV Neut % (Auto) Lymph % (Auto) [place] % (Auto) Eos % (Auto) Baso % (Auto) Neut # (Auto) Lymph # (Auto) [place] # (Auto) Eos # (Auto) Baso # (Auto) Differential Comment PT 11.3 INR 1.0 APTT 19 L D-Dimer, Quantitative Sodium Potassium Chloride Carbon Dioxide Anion Gap BUN Creatinine Est GFR ( Amer) Est GFR (Non-Af Amer) Random Glucose Calcium Total Bilirubin AST ALT Alkaline Phosphatase Troponin I Total Protein Albumin Globulin Albumin/Globulin Ratio Lipase Urine Color [place] Urine Clarity Hazy Urine pH 6.0 Ur Specific [place] 1.013 Urine Protein Negative Urine Glucose (UA) 1+ Urine Ketones Negative Urine Blood Negative Urine Nitrate Negative Urine Bilirubin Negative Urine Urobilinogen Normal Ur Leukocyte Esterase Trace Urine WBC (Auto) 3 Urine RBC (Auto) < 1 Ur Squamous Epith Cells < 1 Hyaline Casts 6-10 H Assessment & Plan (1) DVT, bilateral lower limbs Assessment and Plan: pt found to have bilateral dvt on venous doppler. will give lovenox and admit to telemetry. Status: Acute (2) Anxiety Status: Acute (3) Depression Status: Acute (4) Diabetes mellitus, insulin dependent (IDDM), uncontrolled Status: Acute (5) Liver transplant recipient Status: Acute (6) Hypertension Status: Chronic Priority: Low
[2017-06-29] MEDS: Atropine-Diphenoxylate 0.025-2.5 mg Tab PO PRN (21:54)
[2017-06-29] MEDS: Insulin Detemir 100 units/ml Vial (Levemir) SC SCH (21:57)
[2017-06-29] MEDS: Enoxaparin 60 mg Syringe SC SCH (21:57)
[2017-06-29] MEDS: (Novolin R) Insulin Human Regular 100 units/ml vial SC SCH (21:58)
[2017-06-30] MEDS: Sodium Chloride 0.9% 1,000 ML IV SCH ×2 (06:10→17:06)
[2017-06-30] MEDS: Atropine-Diphenoxylate 0.025-2.5 mg Tab PO PRN ×2 (06:13→14:33)
[2017-06-30] MEDS: (Novolin R) Insulin Human Regular 100 units/ml vial SC SCH ×7 (08:05→22:51)
[2017-06-30] MEDS: Ergocalciferol 50,000 Intl Units Cap PO SCH (09:33)
[2017-06-30] MEDS: Pantoprazole 40 mg EC Tab PO SCH (09:35)
[2017-06-30] MEDS: Enoxaparin 60 mg Syringe SC SCH ×2 (09:45→21:57)
--- NOTE | 2017-06-30 13:01 | VASCLAB ---
PROCEDURE: Lower Extremity Venous Duplex Exam. HISTORY: bilateral leg pain, elevated ddimer PRIORS: None. TECHNIQUE: Bilateral common femoral, femoral, popliteal and posterior tibial, peroneal and great saphenous veins were evaluated. Flow was assessed with color Doppler, compressibility, assessment of phasic flow and augmentation response. Report prepared by Fly Person, NADIR, RVT FINDINGS: RIGHT: 1. Common Femoral Vein: 1.1. Compressibility - Fully compressible: Thrombus - None : Flow - Phasic: Augmentation -Normal: Reflux - None. 2. Femoral Vein: 2.1. Compressibility - Fully compressible: Thrombus - None : Flow - Phasic: Augmentation -Normal: Reflux - None. 3. Popliteal Vein: 3.1. Compressibility - Partial: Thrombus - Acute : Flow - Reduced : Augmentation -None: Reflux - None. 4. Posterior Tibial Vein: 4.1. Compressibility - Fully compressible: Thrombus - None: Flow - Phasic: Augmentation -Normal: Reflux - None. 5. Peroneal Vein: 5.1. Compressibility - Fully compressible: Thrombus - None: Flow - Phasic: Augmentation -Normal: Reflux - None. 6. Great Saphenous Vein: 6.1. Compressibility - Fully compressible: Thrombus - None: Flow - Phasic: Augmentation - Normal: Reflux - None. LEFT: 1. Common Femoral Vein: 1.1. Compressibility - Fully compressible: Thrombus - None: Flow - Phasic: Augmentation -Normal: Reflux - None. 2. Femoral Vein: 2.1. Compressibility - Partial: Thrombus - Acute: Flow - Absent : Augmentation -None: Reflux - None. 3. Popliteal Vein: 3.1. Compressibility - Partial: Thrombus - Acute : Flow - Absent : Augmentation -None: Reflux - None. 4. Posterior Tibial Vein: 4.1. Compressibility - Fully compressible: Thrombus - None: Flow - Phasic: Augmentation -Normal: Reflux - None. 5. Peroneal Vein: 5.1. Compressibility - Partial: Thrombus - Acute: Flow - Absent : Augmentation -None: Reflux - None. 6. Great Saphenous Vein: 6.1. Compressibility - Fully compressible: Thrombus - None: Flow - Phasic: Augmentation - Normal: Reflux - None. OTHER FINDINGS: YESENIA Boothe notified about the findings. IMPRESSION: Right: Acute thrombosis of the right popliteal vein with severe reduction of the venous return. Left: Acute thrombosis of the left femoral, popliteal and peroneal veins with severe reduction of the venous return.
--- NOTE | 2017-06-30 16:53 | CP.PCM.CON ---
History of Present Illness - History of Present Illness History of Present Illness: Vascular surgery consult note for Dr. Brenden Cordero, PGY-1 Pt S & E at bedside. 77F w/PMH sig for B/L DVT consulted for IVC filter placement. Admits to dizziness, diarrhea, near syncope, poor appetite. Denies N & V, F & C, hematochezia, pain, numbness or tingling, weakness in her legs. PMH: HTN, DM, osteoporosis, GERD, R eye blind, arthritis, hx LLE fxr, anxiety, bipolar d/o, PSH: s/p liver transplant, All: NKDA SH: Denies ETOH, tobacco, ilicit drug use Review of Systems - Review of Systems All systems: reviewed and no additional remarkable complaints except - Constitutional Constitutional: Weakness. absent: Chills, Fever - EENT Eyes: Other (blind in R eye). absent: Change in Vision Ears: Dizziness Nose/Mouth/Throat: absent: Sore Throat - Cardiovascular Cardiovascular: absent: Chest Pain, Leg Edema, Palpitations - Respiratory Respiratory: absent: Cough - Gastrointestinal Gastrointestinal: Change in Bowel Habits, Diarrhea. absent: Abdominal Pain, Constipation, Hematemesis, Hematochezia, Nausea, Vomiting - Genitourinary Genitourinary: absent: Change in Urinary Stream - Musculoskeletal Musculoskeletal: absent: Back Pain - Integumentary Integumentary: absent: Rash - Neurological Neurological: Dizziness, Weakness. absent: Numbness, Tingling - Psychiatric Psychiatric: Change in Appetite (decreased) Past Patient History - Infectious Disease Hx of Infectious Diseases: None - Past Medical History & Family History Past Medical History?: Yes - Past Social History Smoking Status: Never Smoked - CARDIAC Hx Atrial Fibrillation: No Hx Cardia Arrhythmia: No Hx Congestive Heart Failure: No Hx Hypercholesterolemia: No Hx Hypertension: Yes Hx Mitral Valve Prolapse: No Hx Pacemaker: No Hx Peripheral Edema: Yes - PULMONARY Hx Asthma: No Hx Bronchitis: Yes Hx Chronic Obstructive Pulmonary Disease (COPD): (DENIES) Hx Emphysema: No Hx Pneumonia: Yes Hx Pulmonary Embolism: No Hx Sleep Apnea: No - NEUROLOGICAL Hx Neurological Disorder: No - HEENT Hx HEENT Problems: No Hx Blind: Yes (Right eye blind) - RENAL Hx Chronic Kidney Disease: No - ENDOCRINE/METABOLIC Hx Diabetes Mellitus Type 2: Yes - HEMATOLOGICAL/ONCOLOGICAL Hx Anemia: No Hx Human Immunodeficiency Virus (HIV): No Hx Sickle Cell Disease: No - INTEGUMENTARY Hx Dermatological Problems: No - MUSCULOSKELETAL/RHEUMATOLOGICAL Hx Arthritis: Yes - GASTROINTESTINAL Hx Crohn's Disease: No Hx Diverticulitis: No Hx Gall Bladder Disease: No Hx Gastritis: Yes Hx Pancreatitis: No - GENITOURINARY/GYNECOLOGICAL Hx Sexually Transmitted Disorders: No - PSYCHIATRIC Hx Anxiety: Yes Hx Bipolar Disorder: Yes Hx Depression: Yes Hx Paranoia: No Hx Post Traumatic Stress Disorder: No Hx Schizophrenia: No Hx Substance Use: No - SURGICAL HISTORY Hx Appendectomy: No Hx Carotid Endarterectomy: No Hx Cholecystectomy: No Hx Coronary Artery Bypass Graft: No Hx Coronary Stent: No Hx Tonsillectomy: No - ANESTHESIA Hx Anesthesia: Yes Hx Anesthesia Reactions: No Hx Malignant Hyperthermia: No Meds Allergies/Adverse Reactions: Allergies Allergy/AdvReac Type Severity Reaction Status Date / Time No Known Allergies Allergy Verified 06/13/17 09:52 - Medications Medications: Current Medications Clonidine HCl (Catapres) 0.1 mg PO BID [facility] Last Admin: 06/30/17 09:33 Dose: 0.1 mg Diphenoxylate HCl/Atropine (Lomotil 0.025-2.5 Mg Tablet) 1 tab PO TID PRN PRN Reason: Diarrhea Last Admin: 06/30/17 14:33 Dose: 1 tab Enoxaparin Sodium (Lovenox) 50 mg SC Q12 [facility] Last Admin: 06/30/17 09:45 Dose: 50 mg Ergocalciferol (Drisdol 50,000 Intl Units Cap) 1 cap PO QWK [facility] Last Admin: 06/30/17 09:33 Dose: 1 cap Famotidine (Pepcid) 20 mg PO DAILY [facility] Last Admin: 06/30/17 09:34 Dose: 20 mg Sodium Chloride (Sodium Chloride 0.9%) 1,000 mls @ 100 mls/hr IV .Q10H [facility] Insulin Detemir (Levemir) 20 unit SC HS [facility] Last Admin: 06/29/17 21:57 Dose: 20 unit Insulin Human Regular (Novolin R) 5 unit SC TIDPC [facility] Last Admin: 06/30/17 13:30 Dose: Not Given Insulin Human Regular (Novolin R) 0 unit SC ACHS [facility] PRN Reason: Protocol Last Admin: 04/10/18 12:21 Dose: 2 unit Pantoprazole Sodium (Protonix Ec Tab) 40 mg PO DAILY [facility] Last Admin: 06/30/17 09:35 Dose: 40 mg Pneumococcal Polyvalent Vaccine (Pneumovax 23 Vaccine) 0.5 ml IM .ONCE ONE Stop: 07/01/17 10:01 Tacrolimus (Prograf Cap) 1 mg PO Q12 [facility] Last Admin: 06/30/17 09:35 Dose: 1 mg Temazepam (Restoril) 30 mg PO HS PRN PRN Reason: Insomnia Last Admin: 06/29/17 21:54 Dose: 30 mg Physical Exam - Constitutional Appears: Non-toxic, No Acute Distress - Head Exam Head Exam: ATRAUMATIC, NORMAL INSPECTION, NORMOCEPHALIC - Eye Exam Eye Exam: EOMI, Normal appearance - ENT Exam ENT Exam: Mucous Membranes Moist, Normal Exam - Neck Exam Neck exam: Positive for: Full Rom, Normal Inspection - Respiratory Exam Respiratory Exam: NORMAL BREATHING PATTERN - Cardiovascular Exam Cardiovascular Exam: REGULAR RHYTHM, +S1, +S2 - GI/Abdominal Exam GI & Abdominal Exam: Soft. absent: Distended, Firm, Guarding, Tenderness - Extremities Exam Extremities exam: Positive for: normal inspection. Negative for: pedal edema, tenderness - Neurological Exam Neurological exam: Alert, CN II-XII Intact, Oriented x3 - Psychiatric Exam Psychiatric exam: Normal Affect, Normal Mood - Skin Skin Exam: Dry, Intact, Normal Color, Warm Results - Vital Signs Recent Vital Signs: Last Vital Signs Temp 99.4 F 06/30/17 15:15 Pulse 93 H 06/30/17 15:15 Resp 20 06/30/17 15:15 BP 113/60 06/30/17 15:15 Pulse Ox 96 06/30/17 15:15 - Labs Result Diagrams: 06/29/17 12:56 06/29/17 12:56 Labs: Laboratory Results - last 24 hr 06/29/17 06/29/17 06/30/17 19:33 21:26 02:41 PT 11.3 INR 1.0 APTT 19 L POC Glucose (mg/dL) 383 H 155 H Ammonia 06/30/17 06/30/17 06/30/17 03:43 06:11 11:29 PT INR APTT POC Glucose (mg/dL) 134 H 96 232 H Ammonia 06/30/17 16:18 PT INR APTT POC Glucose (mg/dL) Ammonia 21 D Assessment & Plan - Assessment and Plan (Free Text) Assessment: 77F w/PMH sig for B/L DVT requiring IVC filter placement Plan: Plan for OR tomorrow for IVC filter placement Ok to Cont therapeutic anticoagulation NPO pMN Consent in chart Further mgmt as per primary team DW attending Consuelo, PGY-1 - Date & Time Date: 06/30/17 Time: 16:51
--- NOTE | 2017-06-30 17:09 | CARD ---
APPROVED REPORT EKG Measurement Heart [id number] <Conclusion> Normal sinus rhythm Normal ECG
--- NOTE | 2017-06-30 18:49 | CT ---
PROCEDURE: CT HEAD WITHOUT CONTRAST. HISTORY: lathargy COMPARISON: 08/23/2016 TECHNIQUE: Axial computed tomography images were obtained through the head/brain without intravenous contrast. Radiation dose: Total exam DLP = 772.78 mGy-cm. This CT exam was performed using one or more of the following dose reduction techniques: Automated exposure control, adjustment of the mA and/or kV according to patient size, and/or use of iterative reconstruction technique. FINDINGS: HEMORRHAGE: No intracranial hemorrhage. BRAIN: No mass effect or edema. Mild atrophy. Mild chronic periventricular white matter ischemic change. No evidence of acute infarct. VENTRICLES: Unremarkable. No hydrocephalus. CALVARIUM: Unremarkable. PARANASAL SINUSES: Unremarkable as visualized. No significant inflammatory changes. MASTOID AIR CELLS: Unremarkable as visualized. No inflammatory changes. OTHER FINDINGS: None. IMPRESSION: No intracranial mass, hemorrhage or evidence of acute infarct. Mild chronic white matter ischemic change
[2017-06-30] MEDS: Insulin Detemir 100 units/ml Vial (Levemir) SC SCH (22:52)
--- NOTE | 2017-06-30 23:02 | CP.PCM.PN ---
Subjective - Date & Time of Evaluation Date of Evaluation: 06/30/17 Time of Evaluation: 17:00 - Subjective Subjective: Pt is for IVC filter placement tommorow morning Admits to dizziness, diarrhea, near syncope, poor appetite. Denies N & V, F & C, hematochezia, pain, numbness or tingling, weakness in her legs. Objective - Vital Signs/Intake and Output Vital Signs (last 24 hours): Temp Pulse Resp BP Pulse Ox 99.4 F 94 H 20 114/60 96 06/30/17 15:15 06/30/17 19:26 06/30/17 15:15 06/30/17 18:47 06/30/17 15:15 Intake and Output: 06/30/17 07/01/17 18:59 06:59 Intake Total 1180 600 Balance 1180 600 - Medications Medications: Current Medications Clonidine HCl (Catapres) 0.1 mg PO BID [facility] Last Admin: 06/30/17 18:46 Dose: Not Given Diphenoxylate HCl/Atropine (Lomotil 0.025-2.5 Mg Tablet) 1 tab PO TID PRN PRN Reason: Diarrhea Last Admin: 06/30/17 14:33 Dose: 1 tab Enoxaparin Sodium (Lovenox) 50 mg SC Q12 [facility] Last Admin: 06/30/17 21:57 Dose: 50 mg Ergocalciferol (Drisdol 50,000 Intl Units Cap) 1 cap PO QWK [facility] Last Admin: 06/30/17 09:33 Dose: 1 cap Famotidine (Pepcid) 20 mg PO DAILY [facility] Last Admin: 06/30/17 09:34 Dose: 20 mg Sodium Chloride (Sodium Chloride 0.9%) 1,000 mls @ 100 mls/hr IV .Q10H [facility] Last Admin: 06/30/17 17:06 Dose: 100 mls/hr Insulin Detemir (Levemir) 20 unit SC HS [facility] Last Admin: 06/30/17 22:52 Dose: Not Given Insulin Human Regular (Novolin R) 5 unit SC TIDPC [facility] Last Admin: 06/30/17 18:42 Dose: Not Given Insulin Human Regular (Novolin R) 0 unit SC ACHS [facility] PRN Reason: Protocol Last Admin: 06/30/17 22:51 Dose: Not Given Metronidazole (Flagyl) 500 mg PO Q8 [facility] PRN Reason: Protocol Last Admin: 06/30/17 21:57 Dose: 500 mg Pantoprazole Sodium (Protonix Ec Tab) 40 mg PO DAILY [facility] Last Admin: 06/30/17 09:35 Dose: 40 mg Pneumococcal Polyvalent Vaccine (Pneumovax 23 Vaccine) 0.5 ml IM .ONCE ONE Stop: 07/01/17 10:01 Tacrolimus (Prograf Cap) 1 mg PO Q12 [facility] Last Admin: 06/30/17 21:57 Dose: 1 mg Temazepam (Restoril) 30 mg PO HS PRN PRN Reason: Insomnia Last Admin: 06/30/17 21:59 Dose: 30 mg - Labs Labs: 06/29/17 12:56 06/29/17 12:56 PT 11.3 SECONDS (9.7-12.2) 06/29/17 19:33 INR 1.0 06/29/17 19:33 APTT 19 SECONDS (21-34) L 06/29/17 19:33 - Constitutional Appears: No Acute Distress - Head Exam Head Exam: ATRAUMATIC, NORMAL INSPECTION, NORMOCEPHALIC - Eye Exam Eye Exam: EOMI, Normal appearance, PERRL Pupil Exam: NORMAL ACCOMODATION, PERRL - Respiratory Exam Respiratory Exam: Clear to Ausculation Bilateral, NORMAL BREATHING PATTERN - Cardiovascular Exam Cardiovascular Exam: REGULAR RHYTHM, +S1, +S2. absent: Murmur - GI/Abdominal Exam GI & Abdominal Exam: Soft, Normal Bowel Sounds. absent: Tenderness - Neurological Exam Neurological Exam: Alert, Awake, CN II-XII Intact, Normal Gait, Oriented x3 Assessment and Plan (1) DVT, bilateral lower limbs Status: Acute (2) Anxiety Status: Acute (3) S/P liver transplant Status: Acute (4) Diabetes mellitus Status: Chronic (5) Hypertension Status: Chronic
[2017-07-01] MEDS: Atropine-Diphenoxylate 0.025-2.5 mg Tab PO PRN (05:20)
[2017-07-01] MEDS: (Novolin R) Insulin Human Regular 100 units/ml vial SC SCH ×7 (06:44→21:05)
[2017-07-01 08:27] LABS: INR 1.3; PROTHROMBIN TIME 14.1 SECONDS (9.7-12.2)
[2017-07-01] MEDS: Pantoprazole 40 mg EC Tab PO SCH ×2 (08:39→13:50)
[2017-07-01] MEDS: Enoxaparin 60 mg Syringe SC SCH ×3 (08:40→21:04)
[2017-07-01 08:46] LABS: BLOOD UREA NITROGEN 15 mg/dL (7-17); CALCIUM 7.5 mg/dl (8.6-10.4); GFR AFRICAN-AMERICAN > 60; GFR NON-AFRICAN AMERICAN 54
[2017-07-01] MEDS ORDERED: ceFAZolin 1 gm in NS 1 GM/100 ML BAG IVPB ONE (09:57)
[2017-07-01] MEDS ORDERED: HEPARIN-NS 5,000 UNITS/500 ML 5,000 UNIT/500 ML BAG IV ONE (09:57)
[2017-07-01] MEDS ORDERED: Iodixanol 320 MG/ML 200 ML BOTTLE IV ONE (09:57)
[2017-07-01] MEDS ORDERED: Pneumococcal 23-Valent Vaccine IM ONE (10:00)
[2017-07-01] MEDS ORDERED: Lactated Ringer's 1,000 ML IV ONE (10:30)
[2017-07-01] MEDS ORDERED: Etomidate 20 mg/10ml Inj IV ONE (11:05)
[2017-07-01] MEDS ORDERED: Propofol 10 mg/ml Inj (20 ML) ONE (11:09)
--- NOTE | 2017-07-01 11:38 | PCM.SURG1 ---
Surgeon's Initial Post Op Note - Surgeon's Notes Surgeon: irwin Photo Journalist: 0 Type of Anesthesia: IV Sedation Anesthesia Administered By: betsy Pre-Operative Diagnosis: bilateral dvt Operative Findings: filter places above iliac confluence and below renal veins Post-Operative Diagnosis: same Operation Performed: bard eve removable filter via right femoral vein Specimen/Specimens Removed: 0 Estimated Blood Loss: EBL {In ML}: 10 Blood Products Given: N/A Drains Used: No Drains Post-Op Condition: Good Date of Surgery/Procedure: 07/01/17 Time of Surgery/Procedure: 11:38
[2017-07-01] MEDS ORDERED: Morphine 4 MG/ML VIAL IVP PRN (11:55)
[2017-07-01] MEDS ORDERED: Potassium Chloride 20 mEq ER Tab PO ONE (13:15)
[2017-07-01] MEDS: Vancomycin 125 MG/5 ML SOLN (ORAL/RECTAL) PO SCH ×3 (14:36→23:24)
--- NOTE | 2017-07-01 16:20 | RAD ---
PROCEDURE: Intraoperative Fluoroscopy. HISTORY: THROMBOSIS,BLOOD CLOT FINDINGS: Fluoroscopic assistance was provided for IVC filter placement. Please refer to the operative report from [facility].
[2017-07-01] MEDS ORDERED: Bismuth Subsalicylate 262 mg Chew Tab PO PRN (19:19)
[2017-07-01] MEDS ORDERED: Bismuth Subsalicylate 262 mg Chew Tab PO STA (19:20)
[2017-07-01] MEDS: Insulin Detemir 100 units/ml Vial (Levemir) SC SCH (21:05)
--- NOTE | 2017-07-01 22:31 | OP ---
PROCEDURE DATE: 07/01/2017 PREOPERATIVE DIAGNOSIS: Bilateral deep vein thrombosis. POSTOPERATIVE DIAGNOSIS: Bilateral deep vein thrombosis. PROCEDURE CARRIED OUT: Placement of Bard Itzel removable filter via right femoral vein with C-arm fluoroscopy, ultrasound-guided puncture, micropuncture technique, and vena cavagram. SURGEON: Juan Miguel Guzmán Jr., MD CONTINUOUS PICKLING LINE PICKLER HELPER: None. ANESTHESIOLOGIST: Dr. Dang. TYPE OF ANESTHESIA: Local with sedation. INDICATIONS: The patient is an older middle-aged woman with a history of intraspinal surgery and was found to have an acute deep vein thrombosis on the right side as well as on the left side. She is felt to be a poor candidate for anticoagulation because this filter was requested and inserted. OPERATIVE FINDINGS: The filter was inserted uneventfully via the right femoral vein. Using ultrasound guidance and micropuncture technique, the right femoral vein was cannulated. Under fluoroscope control, a guidewire was advanced centrally. This was exchanged for an Amplatz wire. Then a larger sheath dilator was brought over the wire and deployed at the appropriate location above the confluence, below the level of the renal veins. This was flushed with heparinized saline. There was good flow, and the procedure was terminated. Ultrasound images of the groin showed that the vein was approximately 15 mm in diameter with no intraluminal thrombosis in the right groin. Final images had showed that the filter is in appropriate location with minimal tilt. Juan Miguel Guzmán Jr., MD
[2017-07-01] MEDS: Sodium Chloride 0.9% 1,000 ML IV SCH (23:24)
--- NOTE | 2017-07-01 23:50 | CP.PCM.PN ---
Subjective - Date & Time of Evaluation Date of Evaluation: 07/01/17 Time of Evaluation: 20:00 - Subjective Subjective: PT SEEN AND EXAMINED, POST OP NO DISTRESS Objective - Vital Signs/Intake and Output Vital Signs (last 24 hours): Temp Pulse Resp BP Pulse Ox 98.1 F 88 18 150/64 98 07/01/17 15:15 07/01/17 15:45 07/01/17 15:15 07/01/17 15:15 07/01/17 15:15 Intake and Output: 07/01/17 07/02/17 18:59 06:59 Intake Total 900 Balance 900 - Medications Medications: Current Medications Acetaminophen (Tylenol 325mg Tab) 650 mg PO Q6 PRN PRN Reason: Headache Bismuth Subsalicylate (Pepto Bismol) 262 mg PO TID PRN PRN Reason: Diarrhea Clonidine HCl (Catapres) 0.1 mg PO BID [facility] Last Admin: 07/01/17 17:35 Dose: 0.1 mg Enoxaparin Sodium (Lovenox) 50 mg SC Q12 [facility] Last Admin: 07/01/17 21:04 Dose: 50 mg Ergocalciferol (Drisdol 50,000 Intl Units Cap) 1 cap PO QWK [facility] Last Admin: 06/30/17 09:33 Dose: 1 cap Famotidine (Pepcid) 20 mg PO DAILY [facility] Last Admin: 07/01/17 13:49 Dose: Not Given Sodium Chloride (Sodium Chloride 0.9%) 1,000 mls @ 100 mls/hr IV .Q10H [facility] Last Admin: 07/01/17 23:24 Dose: Not Given Insulin Detemir (Levemir) 20 unit SC HS [facility] Last Admin: 07/01/17 21:05 Dose: 20 unit Insulin Human Regular (Novolin R) 5 unit SC TIDPC [facility] Last Admin: 07/01/17 17:36 Dose: 5 unit Insulin Human Regular (Novolin R) 0 unit SC ACHS [facility] PRN Reason: Protocol Last Admin: 07/01/17 21:05 Dose: Not Given Metronidazole (Flagyl) 500 mg PO Q8H [facility] PRN Reason: Protocol Last Admin: 07/01/17 21:31 Dose: 500 mg Pantoprazole Sodium (Protonix Ec Tab) 40 mg PO DAILY [facility] Last Admin: 07/01/17 13:50 Dose: Not Given Tacrolimus (Prograf Cap) 1 mg PO Q12 [facility] Last Admin: 07/01/17 21:05 Dose: 1 mg Temazepam (Restoril) 30 mg PO HS PRN PRN Reason: Insomnia Last Admin: 06/30/17 21:59 Dose: 30 mg Vancomycin HCl (Vancocin (Oral Or Rectal Use)) 125 mg PO QID [facility] PRN Reason: Protocol Last Admin: 07/01/17 23:24 Dose: 125 mg - Labs Labs: 06/29/17 12:56 07/01/17 07:58 PT 14.1 SECONDS (9.7-12.2) H 07/01/17 07:58 INR 1.3 07/01/17 07:58 APTT 19 SECONDS (21-34) L 06/29/17 19:33 - Constitutional Appears: No Acute Distress - Head Exam Head Exam: ATRAUMATIC, NORMAL INSPECTION, NORMOCEPHALIC - Eye Exam Eye Exam: EOMI, Normal appearance, PERRL Pupil Exam: NORMAL ACCOMODATION, PERRL - Respiratory Exam Respiratory Exam: Clear to Ausculation Bilateral, NORMAL BREATHING PATTERN - Cardiovascular Exam Cardiovascular Exam: REGULAR RHYTHM, +S1, +S2. absent: Murmur - GI/Abdominal Exam GI & Abdominal Exam: Soft, Normal Bowel Sounds. absent: Tenderness Assessment and Plan (1) DVT, bilateral lower limbs Status: Acute (2) Anxiety Status: Acute (3) S/P insertion of IVC (inferior vena caval) filter Status: Acute
[2017-07-02] MEDS: Sodium Chloride 0.9% 1,000 ML IV SCH ×3 (07:30→21:31)
[2017-07-02] MEDS: (Novolin R) Insulin Human Regular 100 units/ml vial SC SCH ×6 (07:35→21:32)
[2017-07-02 07:37] LABS: BASO % 0.5 % (0.0-2.0); EOS # 0.1 K/uL (0.0-0.7); EOS % 3.3 % (0.0-4.0); HEMOGLOBIN 9.3 g/dL (11.0-16.0); LYMPH # 0.5 K/uL (1.0-4.3); LYMPH % 15.4 % (20.0-40.0); MEAN CELL VOLUME 84.2 fL (81.0-99.0); MEAN CORPUSCULAR HEMOGLOBIN 28.4 pg (27.0-31.0); MEAN CORPUSCULAR HGB CONC 33.8 g/dL (33.0-37.0); MEAN PLATELET VOLUME 8.2 fL (7.2-11.7); MONO # 0.2 K/uL (0.0-0.8); MONO % 5.5 % (0.0-10.0); NEUT # 2.3 K/uL (1.8-7.0); NEUT % 75.3 % (50.0-75.0); RBC 3.26 Mil/uL (3.80-5.20); RED CELL DISTRIBUTION WIDTH 16.5 % (11.5-14.5); WHITE BLOOD COUNT 3.1 K/uL (4.8-10.8)
[2017-07-02 07:43] LABS: ALB/GLOB RATIO 0.8 (1.0-2.1); ALBUMIN 2.6 g/dL (3.5-5.0); ALT/SGPT 16 U/L (9-52); AST/SGOT 27 U/L (14-36); BLOOD UREA NITROGEN 9 mg/dL (7-17); CALCIUM 8.1 mg/dl (8.6-10.4); GFR AFRICAN-AMERICAN > 60; GFR NON-AFRICAN AMERICAN > 60
--- NOTE | 2017-07-02 08:59 | CP.PCM.PN ---
Subjective - Date & Time of Evaluation Date of Evaluation: 07/02/17 Time of Evaluation: 06:40 - Subjective Subjective: Patient seen and examined this AM. Patient complains of persistent diarrhea but no issues with the groin access site. Objective - Vital Signs/Intake and Output Vital Signs (last 24 hours): Temp Pulse Resp BP Pulse Ox 97.7 F 86 18 146/62 99 07/02/17 08:49 07/02/17 08:49 07/02/17 08:49 07/02/17 08:49 07/02/17 08:49 Intake and Output: 07/02/17 07/02/17 06:59 18:59 Output Total 1 Balance -1 - Medications Medications: Current Medications Acetaminophen (Tylenol 325mg Tab) 650 mg PO Q6 PRN PRN Reason: Headache Last Admin: 07/02/17 01:16 Dose: 650 mg Bismuth Subsalicylate (Pepto Bismol) 262 mg PO TID PRN PRN Reason: Diarrhea Clonidine HCl (Catapres) 0.1 mg PO BID [facility] Last Admin: 07/01/17 17:35 Dose: 0.1 mg Enoxaparin Sodium (Lovenox) 50 mg SC Q12 [facility] Last Admin: 07/01/17 21:04 Dose: 50 mg Ergocalciferol (Drisdol 50,000 Intl Units Cap) 1 cap PO QWK [facility] Last Admin: 06/30/17 09:33 Dose: 1 cap Famotidine (Pepcid) 20 mg PO DAILY [facility] Last Admin: 07/01/17 13:49 Dose: Not Given Sodium Chloride (Sodium Chloride 0.9%) 1,000 mls @ 100 mls/hr IV .Q10H [facility] Last Admin: 07/01/17 23:24 Dose: Not Given Insulin Detemir (Levemir) 20 unit SC HS [facility] Last Admin: 07/01/17 21:05 Dose: 20 unit Insulin Human Regular (Novolin R) 5 unit SC TIDPC [facility] Last Admin: 07/01/17 17:36 Dose: 5 unit Insulin Human Regular (Novolin R) 0 unit SC ACHS [facility] PRN Reason: Protocol Last Admin: 07/02/17 07:35 Dose: Not Given Metronidazole (Flagyl) 500 mg PO Q8H [facility] PRN Reason: Protocol Last Admin: 07/02/17 06:36 Dose: 500 mg Pantoprazole Sodium (Protonix Ec Tab) 40 mg PO DAILY [facility] Last Admin: 07/01/17 13:50 Dose: Not Given Tacrolimus (Prograf Cap) 1 mg PO Q12 [facility] Last Admin: 07/01/17 21:05 Dose: 1 mg Temazepam (Restoril) 30 mg PO HS PRN PRN Reason: Insomnia Last Admin: 06/30/17 21:59 Dose: 30 mg Vancomycin HCl (Vancocin (Oral Or Rectal Use)) 125 mg PO QID [facility] PRN Reason: Protocol Last Admin: 07/01/17 23:24 Dose: 125 mg - Labs Labs: 07/02/17 07:15 07/02/17 07:15 PT 14.1 SECONDS (9.7-12.2) H 07/01/17 07:58 INR 1.3 07/01/17 07:58 APTT 19 SECONDS (21-34) L 06/29/17 19:33 - Constitutional Appears: Well, Non-toxic, No Acute Distress - Head Exam Head Exam: ATRAUMATIC, NORMOCEPHALIC - Eye Exam Eye Exam: Normal appearance. absent: Conjunctival injection, Scleral icterus - ENT Exam ENT Exam: Mucous Membranes Moist, Normal Oropharynx - Respiratory Exam Respiratory Exam: NORMAL BREATHING PATTERN. absent: Accessory Muscle Use, Respiratory Distress - Cardiovascular Exam Cardiovascular Exam: RRR - GI/Abdominal Exam GI & Abdominal Exam: Soft. absent: Distended, Tenderness - Extremities Exam Extremities Exam: absent: Calf Tenderness, Pedal Edema, Tenderness Additional comments: right groin with dressing c/d/i, no swelling, no erythema - Neurological Exam Neurological Exam: Alert, Awake, Oriented x3 - Psychiatric Exam Psychiatric exam: Normal Affect, Normal Mood - Skin Skin Exam: Dry, Normal Color, Warm Assessment and Plan - Assessment and Plan (Free Text) Assessment: 77F with BL DVT's POD#1 s/p IVC filter placement Plan: -Patient recovering well from procedure, no further surgical intervention indicated -Patient should follow up with Dr. Guzmán in his office in 1-2 weeks, sooner for any concerns -Patient has no restrictions on activity, may shower. dressing will be removed in Dr. Guzmán's office -Medical management per primary Thank you for this consult Dr. Arielle Brewer, PGY2
[2017-07-02] MEDS: Pantoprazole 40 mg EC Tab PO SCH (09:41)
[2017-07-02] MEDS: Vancomycin 125 MG/5 ML SOLN (ORAL/RECTAL) PO SCH ×4 (09:41→21:31)
[2017-07-02] MEDS: Enoxaparin 60 mg Syringe SC SCH ×2 (09:41→21:31)
[2017-07-02] MEDS: Potassium Chloride 20 mEq ER Tab PO SCH (12:16)
[2017-07-02] MEDS: Lactobacillus Acidophilus 500 MU Cap PO SCH ×2 (13:30→17:45)
[2017-07-02] MEDS: Insulin Detemir 100 units/ml Vial (Levemir) SC SCH (21:31)
--- NOTE | 2017-07-02 23:37 | CP.PCM.PN ---
Subjective - Date & Time of Evaluation Date of Evaluation: 07/02/17 Time of Evaluation: 17:00 - Subjective Subjective: PT SEEN AND EXAMINED, COMPLAINING OF DIARRHEA AND LOOSE WATTERY STOOLS Objective - Vital Signs/Intake and Output Vital Signs (last 24 hours): Temp Pulse Resp BP Pulse Ox 97.9 F 79 18 147/73 99 07/02/17 15:29 07/02/17 15:29 07/02/17 15:29 07/02/17 15:29 07/02/17 15:29 Intake and Output: 07/02/17 07/03/17 18:59 06:59 Intake Total 200 Balance 200 - Medications Medications: Current Medications Acetaminophen (Tylenol 325mg Tab) 650 mg PO Q6 PRN PRN Reason: Headache Last Admin: 07/02/17 01:16 Dose: 650 mg Bismuth Subsalicylate (Pepto Bismol) 262 mg PO TID PRN PRN Reason: Diarrhea Last Admin: 07/02/17 09:45 Dose: 262 mg Clonidine HCl (Catapres) 0.1 mg PO BID [facility] Last Admin: 07/02/17 17:45 Dose: 0.1 mg Enoxaparin Sodium (Lovenox) 50 mg SC Q12 [facility] Last Admin: 07/02/17 21:31 Dose: 50 mg Ergocalciferol (Drisdol 50,000 Intl Units Cap) 1 cap PO QWK [facility] Last Admin: 06/30/17 09:33 Dose: 1 cap Famotidine (Pepcid) 20 mg PO DAILY [facility] Sodium Chloride (Sodium Chloride 0.9%) 1,000 mls @ 100 mls/hr IV .Q10H [facility] Last Admin: 07/02/17 21:31 Dose: Not Given Insulin Detemir (Levemir) 14 unit SC HS [facility] Last Admin: 07/02/17 21:31 Dose: 14 unit Insulin Human Regular (Novolin R) 5 unit SC TIDPC [facility] Last Admin: 07/02/17 12:32 Dose: Not Given Insulin Human Regular (Novolin R) 0 unit SC ACHS [facility] PRN Reason: Protocol Last Admin: 07/02/17 21:32 Dose: 2 unit Lactobacillus Acidophilus (Bacid Acidophilus) 1 cap PO BID [facility] Last Admin: 07/02/17 17:45 Dose: 1 cap Metronidazole (Flagyl) 500 mg PO Q8H [facility] PRN Reason: Protocol Last Admin: 07/02/17 21:31 Dose: 500 mg Potassium Chloride (K-Dur 20 Meq Er Tab) 40 meq PO DAILY [facility] Stop: 07/04/17 10:31 Last Admin: 07/02/17 12:16 Dose: 40 meq Tacrolimus (Prograf Cap) 1 mg PO Q12 [facility] Last Admin: 07/02/17 21:30 Dose: 1 mg Temazepam (Restoril) 30 mg PO HS PRN PRN Reason: Insomnia Last Admin: 07/02/17 22:07 Dose: 30 mg Vancomycin HCl (Vancocin (Oral Or Rectal Use)) 125 mg PO QID [facility] PRN Reason: Protocol Last Admin: 07/02/17 21:31 Dose: 125 mg - Labs Labs: 07/02/17 07:15 07/02/17 07:15 PT 14.1 SECONDS (9.7-12.2) H 07/01/17 07:58 INR 1.3 07/01/17 07:58 APTT 19 SECONDS (21-34) L 06/29/17 19:33 - Constitutional Appears: No Acute Distress - Head Exam Head Exam: ATRAUMATIC, NORMAL INSPECTION, NORMOCEPHALIC - Eye Exam Eye Exam: EOMI, Normal appearance, PERRL Pupil Exam: NORMAL ACCOMODATION, PERRL - ENT Exam ENT Exam: Mucous Membranes Moist, Normal Exam - Respiratory Exam Respiratory Exam: Clear to Ausculation Bilateral, NORMAL BREATHING PATTERN - Cardiovascular Exam Cardiovascular Exam: REGULAR RHYTHM, +S1, +S2. absent: Murmur - GI/Abdominal Exam GI & Abdominal Exam: Soft, Normal Bowel Sounds. absent: Tenderness - Rectal Exam Rectal Exam: Deferred Assessment and Plan (1) DVT, bilateral lower limbs Status: Acute (2) Anxiety Status: Acute (3) Dehydration Status: Acute (4) Depression Status: Acute (5) Hypokalemia Status: Acute (6) Diarrhea Status: Acute (7) S/P insertion of IVC (inferior vena caval) filter Status: Acute
[2017-07-03 07:28] LABS: BASO % 0.9 % (0.0-2.0); EOS # 0.2 K/uL (0.0-0.7); EOS % 6.1 % (0.0-4.0); HEMOGLOBIN 9.4 g/dL (11.0-16.0); LYMPH # 1.3 K/uL (1.0-4.3); LYMPH % 34.1 % (20.0-40.0); MEAN CELL VOLUME 84.1 fL (81.0-99.0); MEAN CORPUSCULAR HEMOGLOBIN 28.6 pg (27.0-31.0); MEAN PLATELET VOLUME 8.3 fL (7.2-11.7); MONO # 0.3 K/uL (0.0-0.8); MONO % 8.4 % (0.0-10.0); NEUT # 1.9 K/uL (1.8-7.0); NEUT % 50.5 % (50.0-75.0); NRBC % 0.1 % (0.0-2.0); RBC 3.3 Mil/uL (3.80-5.20); RED CELL DISTRIBUTION WIDTH 16.9 % (11.5-14.5); WHITE BLOOD COUNT 3.8 K/uL (4.8-10.8)
[2017-07-03] MEDS: (Novolin R) Insulin Human Regular 100 units/ml vial SC SCH ×4 (08:02→22:02)
[2017-07-03 08:09] LABS: BLOOD UREA NITROGEN 6 mg/dL (7-17); CALCIUM 8.6 mg/dl (8.6-10.4); GFR AFRICAN-AMERICAN > 60; GFR NON-AFRICAN AMERICAN > 60
[2017-07-03] MEDS: Lactobacillus Acidophilus 500 MU Cap PO SCH ×2 (10:24→17:19)
[2017-07-03] MEDS: Potassium Chloride 20 mEq ER Tab PO SCH (10:26)
[2017-07-03] MEDS: Enoxaparin 60 mg Syringe SC SCH ×2 (10:28→21:15)
[2017-07-03] MEDS: Vancomycin 125 MG/5 ML SOLN (ORAL/RECTAL) PO SCH ×4 (10:34→21:17)
[2017-07-03] MEDS: Dextrose 5%/0.45% NS 1,000 ML IV SCH ×2 (11:06→20:56)
[2017-07-03] MEDS ORDERED: Potassium Chloride 20 mEq ER Tab PO ONE (14:00)
[2017-07-03] MEDS: Bismuth Subsalicylate 262 mg Chew Tab PO SCH (21:13)
[2017-07-03] MEDS: Insulin Detemir 100 units/ml Vial (Levemir) SC SCH (22:02)
--- NOTE | 2017-07-03 23:39 | CP.PCM.PN ---
Subjective - Date & Time of Evaluation Date of Evaluation: 07/04/17 Time of Evaluation: 19:00 - Subjective Subjective: Pt seen and examined, still have some loose wattery stools, potasium is low but pt refusing IV K, her bood sugars widely fluctating, we shall add IV peptobismol round the clock Objective - Vital Signs/Intake and Output Vital Signs (last 24 hours): Temp Pulse Resp BP Pulse Ox 98 F 71 20 151/82 H 99 07/03/17 15:00 07/03/17 16:31 07/03/17 15:00 07/03/17 15:00 07/03/17 15:00 Intake and Output: 07/03/17 07/04/17 18:59 06:59 Intake Total 1100 Balance 1100 - Medications Medications: Current Medications Acetaminophen (Tylenol 325mg Tab) 650 mg PO Q6 PRN PRN Reason: Headache Last Admin: 07/02/17 01:16 Dose: 650 mg Bismuth Subsalicylate (Pepto Bismol) 262 mg PO QID [facility] Last Admin: 07/03/17 21:13 Dose: 262 mg Clonidine HCl (Catapres) 0.1 mg PO BID [facility] Last Admin: 07/03/17 17:19 Dose: 0.1 mg Enoxaparin Sodium (Lovenox) 50 mg SC Q12 [facility] Last Admin: 07/03/17 21:15 Dose: 50 mg Ergocalciferol (Drisdol 50,000 Intl Units Cap) 1 cap PO QWK [facility] Last Admin: 06/30/17 09:33 Dose: 1 cap Famotidine (Pepcid) 20 mg PO DAILY [facility] Last Admin: 07/03/17 10:32 Dose: 20 mg Dextrose/Sodium Chloride (Dextrose 5%/0.45% Ns 1000 Ml) 1,000 mls @ 100 mls/hr IV .Q10H [facility] Last Admin: 07/03/17 20:56 Dose: Not Given Insulin Detemir (Levemir) 14 unit SC HS [facility] Last Admin: 07/03/17 22:02 Dose: Not Given Insulin Human Regular (Novolin R) 5 unit SC TIDPC [facility] Last Admin: 07/02/17 12:32 Dose: Not Given Insulin Human Regular (Novolin R) 0 unit SC ACHS [facility] PRN Reason: Protocol Last Admin: 07/03/17 22:02 Dose: Not Given Lactobacillus Acidophilus (Bacid Acidophilus) 1 cap PO BID [facility] Last Admin: 07/03/17 17:19 Dose: 1 cap Metronidazole (Flagyl) 500 mg PO Q8H [facility] PRN Reason: Protocol Last Admin: 07/03/17 22:02 Dose: Not Given Potassium Chloride (K-Dur 20 Meq Er Tab) 40 meq PO DAILY [facility] Stop: 07/04/17 10:31 Last Admin: 07/03/17 10:26 Dose: 40 meq Tacrolimus (Prograf Cap) 1 mg PO Q12 [facility] Last Admin: 07/03/17 21:12 Dose: 1 mg Temazepam (Restoril) 30 mg PO HS PRN PRN Reason: Insomnia Last Admin: 07/03/17 22:06 Dose: 30 mg Vancomycin HCl (Vancocin (Oral Or Rectal Use)) 125 mg PO QID [facility] PRN Reason: Protocol Last Admin: 07/03/17 21:17 Dose: 125 mg - Labs Labs: 07/03/17 07:19 07/03/17 07:19 PT 14.1 SECONDS (9.7-12.2) H 07/01/17 07:58 INR 1.3 07/01/17 07:58 APTT 19 SECONDS (21-34) L 06/29/17 19:33 - Constitutional Appears: No Acute Distress, Chronically Ill - Head Exam Head Exam: ATRAUMATIC, NORMAL INSPECTION, NORMOCEPHALIC - Eye Exam Eye Exam: EOMI, Normal appearance, PERRL Pupil Exam: NORMAL ACCOMODATION, PERRL - Respiratory Exam Respiratory Exam: Clear to Ausculation Bilateral, NORMAL BREATHING PATTERN - Cardiovascular Exam Cardiovascular Exam: REGULAR RHYTHM, +S1, +S2. absent: Murmur - GI/Abdominal Exam GI & Abdominal Exam: Hyperactive Bowel Sounds Assessment and Plan (1) DVT, bilateral lower limbs Status: Acute (2) Anxiety Status: Acute (3) Dehydration Status: Acute (4) Hypokalemia Status: Acute (5) Depression Status: Acute (6) Hyperkalemia Status: Acute (7) Diarrhea Status: Resolved
[2017-07-04] MEDS: Dextrose 5%/0.45% NS 1,000 ML IV SCH (06:26)
[2017-07-04 07:23] LABS: HEMOGLOBIN 9.4 g/dL (11.0-16.0); MEAN CELL VOLUME 84.7 fL (81.0-99.0); MEAN CORPUSCULAR HEMOGLOBIN 28.6 pg (27.0-31.0); MEAN CORPUSCULAR HGB CONC 33.8 g/dL (33.0-37.0); MEAN PLATELET VOLUME 8.4 fL (7.2-11.7); RBC 3.3 Mil/uL (3.80-5.20); WHITE BLOOD COUNT 2.1 K/uL (4.8-10.8)
[2017-07-04 07:48] LABS: ALB/GLOB RATIO 0.9 (1.0-2.1); ALBUMIN 2.8 g/dL (3.5-5.0); ALT/SGPT 29 U/L (9-52); AST/SGOT 67 U/L (14-36); BLOOD UREA NITROGEN 7 mg/dL (7-17); CALCIUM 8.4 mg/dl (8.6-10.4); GFR AFRICAN-AMERICAN > 60; GFR NON-AFRICAN AMERICAN > 60
[2017-07-04] MEDS: (Novolin R) Insulin Human Regular 100 units/ml vial SC SCH ×2 (08:05→18:00)
[2017-07-04] MEDS: Ergocalciferol 50,000 Intl Units Cap PO SCH (10:32)
[2017-07-04] MEDS: Potassium Chloride 20 mEq ER Tab PO SCH ×2 (10:32→10:41)
[2017-07-04] MEDS: Lactobacillus Acidophilus 500 MU Cap PO SCH ×2 (10:33→17:59)
[2017-07-04] MEDS: Enoxaparin 60 mg Syringe SC SCH (10:34)
[2017-07-04] MEDS: Bismuth Subsalicylate 262 mg Chew Tab PO SCH ×4 (10:38→21:11)
[2017-07-04] MEDS: Vancomycin 125 MG/5 ML SOLN (ORAL/RECTAL) PO SCH ×4 (10:39→21:20)
[2017-07-04] MEDS: (Novolog) Insulin Aspart, Recombinant 100 u/ml 10 ml vial SC SCH ×4 (12:00→21:10)
[2017-07-04] MEDS: Insulin Detemir 100 units/ml Vial (Levemir) SC SCH (21:09)
--- NOTE | 2017-07-04 23:08 | CP.PCM.PN ---
Objective - Vital Signs/Intake and Output Vital Signs (last 24 hours): Temp Pulse Resp BP Pulse Ox 98.2 F 97 H 18 124/71 98 07/04/17 15:23 07/04/17 16:53 07/04/17 15:23 07/04/17 15:23 07/04/17 15:23 - Medications Medications: Current Medications Acetaminophen (Tylenol 325mg Tab) 650 mg PO Q6 PRN PRN Reason: Headache Last Admin: 07/02/17 01:16 Dose: 650 mg Bismuth Subsalicylate (Pepto Bismol) 262 mg PO QID [facility] Last Admin: 07/04/17 21:11 Dose: 262 mg Clonidine HCl (Catapres) 0.1 mg PO BID [facility] Last Admin: 07/04/17 17:59 Dose: 0.1 mg Enoxaparin Sodium (Lovenox) 40 mg SC DAILY [facility] Ergocalciferol (Drisdol 50,000 Intl Units Cap) 1 cap PO QWK [facility] Last Admin: 07/04/17 10:32 Dose: 1 cap Famotidine (Pepcid) 20 mg PO DAILY [facility] Last Admin: 07/04/17 10:33 Dose: 20 mg Insulin Aspart (Novolog) 0 unit SC ACHS [facility] PRN Reason: Protocol Last Admin: 07/04/17 21:10 Dose: Not Given Insulin Detemir (Levemir) 14 unit SC HS [facility] Last Admin: 07/04/17 21:09 Dose: 14 unit Insulin Human Regular (Novolin R) 5 unit SC TIDPC [facility] Last Admin: 07/04/17 18:00 Dose: 5 unit Lactobacillus Acidophilus (Bacid Acidophilus) 1 cap PO BID [facility] Last Admin: 07/04/17 17:59 Dose: 1 cap Metronidazole (Flagyl) 500 mg PO Q8H [facility] PRN Reason: Protocol Last Admin: 07/04/17 21:10 Dose: 500 mg Tacrolimus (Prograf Cap) 1 mg PO Q12 [facility] Last Admin: 07/04/17 21:11 Dose: 1 mg Temazepam (Restoril) 30 mg PO HS PRN PRN Reason: Insomnia Last Admin: 07/04/17 22:24 Dose: 30 mg Vancomycin HCl (Vancocin (Oral Or Rectal Use)) 125 mg PO QID [facility] PRN Reason: Protocol Last Admin: 07/04/17 21:20 Dose: 125 mg - Labs Labs: 07/04/17 07:16 07/04/17 07:16 PT 14.1 SECONDS (9.7-12.2) H 07/01/17 07:58 INR 1.3 07/01/17 07:58 APTT 19 SECONDS (21-34) L 06/29/17 19:33 Assessment and Plan (1) DVT, bilateral lower limbs Status: Acute (2) Anxiety Status: Acute (3) Dehydration Status: Acute (4) Depression Status: Acute (5) Hypokalemia Status: Acute (6) Diarrhea Status: Acute (7) S/P insertion of IVC (inferior vena caval) filter Status: Acute
[2017-07-05 08:02] LABS: BLOOD UREA NITROGEN 12 mg/dL (7-17); GFR AFRICAN-AMERICAN > 60; GFR NON-AFRICAN AMERICAN > 60
[2017-07-05] MEDS: (Novolin R) Insulin Human Regular 100 units/ml vial SC SCH ×3 (08:12→18:12)
[2017-07-05] MEDS: (Novolog) Insulin Aspart, Recombinant 100 u/ml 10 ml vial SC SCH ×4 (08:13→21:09)
[2017-07-05] MEDS: Lactobacillus Acidophilus 500 MU Cap PO SCH ×2 (10:26→18:11)
[2017-07-05] MEDS: Bismuth Subsalicylate 262 mg Chew Tab PO SCH ×4 (10:26→21:09)
[2017-07-05] MEDS: Enoxaparin 60 mg Syringe SC SCH (10:27)
[2017-07-05] MEDS: Vancomycin 125 MG/5 ML SOLN (ORAL/RECTAL) PO SCH ×4 (10:30→21:07)
[2017-07-05] MEDS: Insulin Detemir 100 units/ml Vial (Levemir) SC SCH (21:09)
--- NOTE | 2017-07-05 22:30 | CP.PCM.PN ---
Subjective - Date & Time of Evaluation Date of Evaluation: 07/05/17 Time of Evaluation: 18:30 - Subjective Subjective: PT IS SEEN AND EXAMINED, pt is for ASHKAN, diarrhea is decreased, electrolytes are stable Objective - Vital Signs/Intake and Output Vital Signs (last 24 hours): Temp Pulse Resp BP Pulse Ox 97.7 F 69 20 146/86 99 07/05/17 15:00 07/05/17 16:32 07/05/17 15:00 07/05/17 15:00 07/05/17 20:28 - Medications Medications: Current Medications Acetaminophen (Tylenol 325mg Tab) 650 mg PO Q6 PRN PRN Reason: Headache Last Admin: 07/02/17 01:16 Dose: 650 mg Bismuth Subsalicylate (Pepto Bismol) 262 mg PO QID [facility] Last Admin: 07/05/17 21:09 Dose: Not Given Clonidine HCl (Catapres) 0.1 mg PO BID [facility] Last Admin: 07/05/17 18:11 Dose: 0.1 mg Enoxaparin Sodium (Lovenox) 40 mg SC DAILY [facility] Last Admin: 07/05/17 10:27 Dose: 40 mg Ergocalciferol (Drisdol 50,000 Intl Units Cap) 1 cap PO QWK [facility] Last Admin: 07/04/17 10:32 Dose: 1 cap Famotidine (Pepcid) 20 mg PO DAILY [facility] Last Admin: 07/05/17 10:27 Dose: 20 mg Insulin Aspart (Novolog) 0 unit SC ACHS [facility] PRN Reason: Protocol Last Admin: 07/05/17 21:09 Dose: Not Given Insulin Detemir (Levemir) 14 unit SC HS [facility] Last Admin: 07/05/17 21:09 Dose: Not Given Insulin Human Regular (Novolin R) 5 unit SC TIDPC [facility] Last Admin: 07/05/17 18:12 Dose: Not Given Lactobacillus Acidophilus (Bacid Acidophilus) 1 cap PO BID [facility] Last Admin: 07/05/17 18:11 Dose: 1 cap Metronidazole (Flagyl) 500 mg PO Q8H [facility] PRN Reason: Protocol Last Admin: 07/05/17 13:34 Dose: 500 mg Tacrolimus (Prograf Cap) 1 mg PO Q12 [facility] Last Admin: 07/05/17 21:09 Dose: 1 mg Temazepam (Restoril) 30 mg PO HS PRN PRN Reason: Insomnia Last Admin: 07/05/17 21:09 Dose: 30 mg Vancomycin HCl (Vancocin (Oral Or Rectal Use)) 125 mg PO QID [facility] PRN Reason: Protocol Last Admin: 07/05/17 21:07 Dose: 125 mg - Labs Labs: 07/04/17 07:16 07/05/17 07:32 PT 14.1 SECONDS (9.7-12.2) H 07/01/17 07:58 INR 1.3 07/01/17 07:58 APTT 19 SECONDS (21-34) L 06/29/17 19:33 - Constitutional Appears: No Acute Distress - Head Exam Head Exam: ATRAUMATIC, NORMAL INSPECTION, NORMOCEPHALIC - Eye Exam Eye Exam: EOMI, Normal appearance, PERRL Pupil Exam: NORMAL ACCOMODATION, PERRL - Respiratory Exam Respiratory Exam: Clear to Ausculation Bilateral, NORMAL BREATHING PATTERN - Cardiovascular Exam Cardiovascular Exam: REGULAR RHYTHM, +S1, +S2. absent: Murmur - GI/Abdominal Exam GI & Abdominal Exam: Soft, Normal Bowel Sounds. absent: Tenderness Assessment and Plan (1) DVT, bilateral lower limbs Status: Acute (2) Anxiety Status: Acute (3) Dehydration Status: Acute (4) Depression Status: Acute (5) Hypokalemia Status: Acute (6) Diarrhea Status: Acute (7) S/P insertion of IVC (inferior vena caval) filter Status: Acute
[2017-07-06] MEDS: (Novolog) Insulin Aspart, Recombinant 100 u/ml 10 ml vial SC SCH ×4 (07:31→21:32)
[2017-07-06] MEDS: Vancomycin 125 MG/5 ML SOLN (ORAL/RECTAL) PO SCH ×2 (09:44→13:29)
[2017-07-06] MEDS: Enoxaparin 60 mg Syringe SC SCH (09:45)
[2017-07-06] MEDS: Bismuth Subsalicylate 262 mg Chew Tab PO SCH ×4 (09:45→21:31)
[2017-07-06] MEDS: Lactobacillus Acidophilus 500 MU Cap PO SCH ×2 (09:45→17:31)
[2017-07-06] MEDS: (Novolin R) Insulin Human Regular 100 units/ml vial SC SCH ×3 (09:46→17:31)
[2017-07-06] MEDS: Insulin Detemir 100 units/ml Vial (Levemir) SC SCH (21:26)
--- NOTE | 2017-07-06 23:19 | CP.PCM.PN ---
Subjective - Date & Time of Evaluation Date of Evaluation: 07/06/17 Time of Evaluation: 19:35 - Subjective Subjective: Pt seen and examined,is waiting for ASHKAN, her diarrhea has been resolved, on antibiotics, her blood sugars are more stable. Objective - Vital Signs/Intake and Output Vital Signs (last 24 hours): Temp Pulse Resp BP Pulse Ox 97.8 F 82 20 155/79 H 98 07/06/17 15:42 07/06/17 17:32 07/06/17 15:42 07/06/17 17:32 07/06/17 15:42 Intake and Output: 07/06/17 07/07/17 18:59 06:59 Intake Total 400 Balance 400 - Medications Medications: Current Medications Acetaminophen (Tylenol 325mg Tab) 650 mg PO Q6 PRN PRN Reason: Headache Last Admin: 07/02/17 01:16 Dose: 650 mg Bismuth Subsalicylate (Pepto Bismol) 262 mg PO QID [facility] Last Admin: 07/06/17 21:31 Dose: 262 mg Clonidine HCl (Catapres) 0.1 mg PO BID [facility] Last Admin: 07/06/17 17:31 Dose: 0.1 mg Enoxaparin Sodium (Lovenox) 40 mg SC DAILY [facility] Last Admin: 07/06/17 09:45 Dose: 40 mg Ergocalciferol (Drisdol 50,000 Intl Units Cap) 1 cap PO QWK [facility] Last Admin: 07/04/17 10:32 Dose: 1 cap Famotidine (Pepcid) 20 mg PO DAILY [facility] Last Admin: 07/06/17 09:44 Dose: 20 mg Insulin Aspart (Novolog) 0 unit SC ACHS [facility] PRN Reason: Protocol Last Admin: 07/06/17 21:32 Dose: Not Given Insulin Detemir (Levemir) 14 unit SC HS [facility] Last Admin: 07/06/17 21:26 Dose: Not Given Insulin Human Regular (Novolin R) 5 unit SC TIDPC [facility] Last Admin: 07/06/17 17:31 Dose: 5 unit Lactobacillus Acidophilus (Bacid Acidophilus) 1 cap PO BID [facility] Last Admin: 07/06/17 17:31 Dose: 1 cap Tacrolimus (Prograf Cap) 1 mg PO Q12 [facility] Last Admin: 07/06/17 21:31 Dose: 1 mg Temazepam (Restoril) 30 mg PO HS PRN PRN Reason: Insomnia Last Admin: 07/06/17 21:31 Dose: 30 mg - Labs Labs: 07/04/17 07:16 07/05/17 07:32 PT 14.1 SECONDS (9.7-12.2) H 07/01/17 07:58 INR 1.3 07/01/17 07:58 APTT 19 SECONDS (21-34) L 06/29/17 19:33 - Constitutional Appears: No Acute Distress - Head Exam Head Exam: ATRAUMATIC, NORMAL INSPECTION, NORMOCEPHALIC - Eye Exam Eye Exam: EOMI, Normal appearance, PERRL Pupil Exam: NORMAL ACCOMODATION, PERRL - Respiratory Exam Respiratory Exam: Clear to Ausculation Bilateral, NORMAL BREATHING PATTERN - Cardiovascular Exam Cardiovascular Exam: REGULAR RHYTHM, +S1, +S2. absent: Murmur - GI/Abdominal Exam GI & Abdominal Exam: Soft, Normal Bowel Sounds. absent: Tenderness Assessment and Plan (1) DVT, bilateral lower limbs Status: Acute (2) Anxiety Status: Acute (3) Dehydration Status: Acute (4) Depression Status: Acute (5) Hypokalemia Status: Acute (6) Diarrhea Status: Acute (7) S/P insertion of IVC (inferior vena caval) filter Status: Acute
[2017-07-07] MEDS: (Novolog) Insulin Aspart, Recombinant 100 u/ml 10 ml vial SC SCH ×4 (06:31→21:23)
[2017-07-07] MEDS: Bismuth Subsalicylate 262 mg Chew Tab PO SCH ×4 (09:34→22:16)
[2017-07-07] MEDS: Lactobacillus Acidophilus 500 MU Cap PO SCH ×2 (09:34→17:21)
[2017-07-07] MEDS: Enoxaparin 60 mg Syringe SC SCH (09:35)
[2017-07-07] MEDS: (Novolin R) Insulin Human Regular 100 units/ml vial SC SCH ×3 (09:37→17:21)
[2017-07-07] MEDS: Ergocalciferol 50,000 Intl Units Cap PO SCH (12:49)
[2017-07-07] MEDS: Insulin Detemir 100 units/ml Vial (Levemir) SC SCH (21:23)
--- NOTE | 2017-07-07 23:30 | CP.PCM.PN ---
Subjective - Date & Time of Evaluation Date of Evaluation: 07/07/17 Time of Evaluation: 18:00 - Subjective Subjective: Pt seen and examined,is waiting for ASHKAN, her diarrhea has been resolved, on antibiotics, her blood sugars are more stable. Objective - Vital Signs/Intake and Output Vital Signs (last 24 hours): Temp Pulse Resp BP Pulse Ox 97.8 F 86 20 112/68 99 07/07/17 15:56 07/07/17 16:53 07/07/17 15:56 07/07/17 15:56 07/07/17 15:56 - Medications Medications: Current Medications Acetaminophen (Tylenol 325mg Tab) 650 mg PO Q6 PRN PRN Reason: Headache Last Admin: 07/02/17 01:16 Dose: 650 mg Bismuth Subsalicylate (Pepto Bismol) 262 mg PO QID [facility] Last Admin: 07/07/17 22:16 Dose: 262 mg Clonidine HCl (Catapres) 0.1 mg PO BID [facility] Last Admin: 07/07/17 17:21 Dose: 0.1 mg Enoxaparin Sodium (Lovenox) 40 mg SC DAILY [facility] Last Admin: 07/07/17 09:35 Dose: 40 mg Ergocalciferol (Drisdol 50,000 Intl Units Cap) 1 cap PO QWK [facility] Last Admin: 07/07/17 12:49 Dose: 1 cap Famotidine (Pepcid) 20 mg PO DAILY [facility] Last Admin: 07/07/17 09:34 Dose: 20 mg Insulin Aspart (Novolog) 0 unit SC ACHS [facility] PRN Reason: Protocol Last Admin: 07/07/17 21:23 Dose: Not Given Insulin Detemir (Levemir) 14 unit SC HS [facility] Last Admin: 07/07/17 21:23 Dose: Not Given Insulin Human Regular (Novolin R) 5 unit SC TIDPC [facility] Last Admin: 07/07/17 17:21 Dose: 5 unit Lactobacillus Acidophilus (Bacid Acidophilus) 1 cap PO BID [facility] Last Admin: 07/07/17 17:21 Dose: 1 cap Tacrolimus (Prograf Cap) 1 mg PO Q12 [facility] Last Admin: 07/07/17 22:15 Dose: 1 mg Temazepam (Restoril) 30 mg PO HS PRN PRN Reason: Insomnia Last Admin: 07/07/17 22:15 Dose: 30 mg - Labs Labs: 07/04/17 07:16 07/05/17 07:32 PT 14.1 SECONDS (9.7-12.2) H 07/01/17 07:58 INR 1.3 07/01/17 07:58 APTT 19 SECONDS (21-34) L 06/29/17 19:33 Assessment and Plan (1) DVT, bilateral lower limbs Status: Acute (2) Anxiety Status: Acute (3) Dehydration Status: Acute (4) Depression Status: Acute (5) Hypokalemia Status: Acute (6) Diarrhea Status: Acute (7) S/P insertion of IVC (inferior vena caval) filter Status: Acute
[2017-07-08] MEDS: (Novolog) Insulin Aspart, Recombinant 100 u/ml 10 ml vial SC SCH ×3 (06:42→21:34)
[2017-07-08] MEDS: (Novolin R) Insulin Human Regular 100 units/ml vial SC SCH ×4 (10:25→18:39)
[2017-07-08] MEDS: Bismuth Subsalicylate 262 mg Chew Tab PO SCH ×4 (10:26→22:10)
[2017-07-08] MEDS: Enoxaparin 60 mg Syringe SC SCH (10:26)
[2017-07-08] MEDS: Lactobacillus Acidophilus 500 MU Cap PO SCH ×2 (10:27→17:58)
[2017-07-08 10:54] LABS: HEMOGLOBIN 9.4 g/dL (11.0-16.0); MEAN CELL VOLUME 85.7 fL (81.0-99.0); MEAN CORPUSCULAR HEMOGLOBIN 28.2 pg (27.0-31.0); MEAN PLATELET VOLUME 8.9 fL (7.2-11.7); RBC 3.33 Mil/uL (3.80-5.20); RED CELL DISTRIBUTION WIDTH 17.2 % (11.5-14.5); WHITE BLOOD COUNT 3.9 K/uL (4.8-10.8)
[2017-07-08 11:43] LABS: BLOOD UREA NITROGEN 22 mg/dL (7-17); CALCIUM 9.3 mg/dl (8.6-10.4); GFR AFRICAN-AMERICAN 44; GFR NON-AFRICAN AMERICAN 37
[2017-07-08] MEDS ORDERED: (Novolog) Insulin Aspart, Recombinant 100 u/ml 10 ml vial SC ONE (12:15)
[2017-07-08] MEDS ORDERED: Sodium Chloride 0.9% 250 ML IV ONE (12:15)
[2017-07-08] MEDS: Sodium Chloride 0.9% 1,000 ML IV SCH ×2 (12:58→22:10)
[2017-07-08 20:14] LABS: BLOOD UREA NITROGEN 21 mg/dL (7-17); CALCIUM 9.1 mg/dl (8.6-10.4); GFR AFRICAN-AMERICAN 58; GFR NON-AFRICAN AMERICAN 48
[2017-07-08] MEDS: Insulin Detemir 100 units/ml Vial (Levemir) SC SCH (22:09)
--- NOTE | 2017-07-08 22:45 | CP.PCM.PN ---
Subjective - Date & Time of Evaluation Date of Evaluation: 07/08/17 Time of Evaluation: 19:15 - Subjective Subjective: Pt seen and evaluated Objective - Vital Signs/Intake and Output Vital Signs (last 24 hours): Temp Pulse Resp BP Pulse Ox 97.2 F L 87 20 111/69 98 07/08/17 15:00 07/08/17 15:45 07/08/17 15:00 07/08/17 15:00 07/08/17 15:00 - Medications Medications: Current Medications Acetaminophen (Tylenol 325mg Tab) 650 mg PO Q6 PRN PRN Reason: Headache Last Admin: 07/02/17 01:16 Dose: 650 mg Bismuth Subsalicylate (Pepto Bismol) 262 mg PO QID [facility] Last Admin: 07/08/17 22:10 Dose: 262 mg Clonidine HCl (Catapres) 0.1 mg PO BID [facility] Last Admin: 07/08/17 17:59 Dose: 0.1 mg Enoxaparin Sodium (Lovenox) 40 mg SC DAILY [facility] Last Admin: 07/08/17 10:26 Dose: 40 mg Ergocalciferol (Drisdol 50,000 Intl Units Cap) 1 cap PO QWK [facility] Last Admin: 07/07/17 12:49 Dose: 1 cap Famotidine (Pepcid) 20 mg PO DAILY [facility] Last Admin: 07/08/17 10:26 Dose: 20 mg Sodium Chloride (Sodium Chloride 0.9%) 1,000 mls @ 100 mls/hr IV .Q10H [facility] Last Admin: 07/08/17 22:10 Dose: Not Given Insulin Aspart (Novolog) 0 unit SC ACHS [facility] PRN Reason: Protocol Last Admin: 07/08/17 21:34 Dose: Not Given Insulin Detemir (Levemir) 14 unit SC HS [facility] Last Admin: 07/08/17 22:09 Dose: 14 unit Insulin Human Regular (Novolin R) 5 unit SC TIDPC [facility] Last Admin: 07/08/17 18:39 Dose: 5 unit Lactobacillus Acidophilus (Bacid Acidophilus) 1 cap PO BID [facility] Last Admin: 07/08/17 17:58 Dose: 1 cap Tacrolimus (Prograf Cap) 1 mg PO Q12 [facility] Last Admin: 07/08/17 22:09 Dose: 1 mg Temazepam (Restoril) 30 mg PO HS PRN PRN Reason: Insomnia Last Admin: 07/08/17 22:09 Dose: 30 mg - Labs Labs: 07/08/17 10:46 07/08/17 19:56 PT 14.1 SECONDS (9.7-12.2) H 07/01/17 07:58 INR 1.3 07/01/17 07:58 APTT 19 SECONDS (21-34) L 06/29/17 19:33 Assessment and Plan (1) DVT, bilateral lower limbs Status: Acute (2) Anxiety Status: Acute (3) Dehydration Status: Acute (4) Depression Status: Acute (5) Hypokalemia Status: Acute (6) Diarrhea Status: Acute (7) S/P insertion of IVC (inferior vena caval) filter Status: Acute
[2017-07-09] MEDS: (Novolog) Insulin Aspart, Recombinant 100 u/ml 10 ml vial SC SCH ×4 (07:37→22:29)
[2017-07-09 08:31] LABS: BLOOD UREA NITROGEN 15 mg/dL (7-17); CALCIUM 8.8 mg/dl (8.6-10.4); GFR AFRICAN-AMERICAN > 60; GFR NON-AFRICAN AMERICAN > 60
[2017-07-09] MEDS: Sodium Chloride 0.9% 1,000 ML IV SCH ×3 (09:00→18:10)
[2017-07-09] MEDS: (Novolin R) Insulin Human Regular 100 units/ml vial SC SCH ×3 (09:19→18:33)
[2017-07-09] MEDS: Lactobacillus Acidophilus 500 MU Cap PO SCH ×2 (09:20→18:08)
[2017-07-09] MEDS: Enoxaparin 60 mg Syringe SC SCH (09:20)
[2017-07-09] MEDS: Bismuth Subsalicylate 262 mg Chew Tab PO SCH ×4 (09:21→21:24)
[2017-07-09] MEDS: Insulin Detemir 100 units/ml Vial (Levemir) SC SCH (21:36)
--- NOTE | 2017-07-09 23:27 | CP.PCM.PN ---
Objective - Vital Signs/Intake and Output Vital Signs (last 24 hours): Temp Pulse Resp BP Pulse Ox 98.2 F 81 18 135/82 100 07/09/17 15:05 07/09/17 16:00 07/09/17 15:05 07/09/17 15:05 07/09/17 15:05 Intake and Output: 07/09/17 07/10/17 18:59 06:59 Intake Total 1200 Balance 1200 - Medications Medications: Current Medications Acetaminophen (Tylenol 325mg Tab) 650 mg PO Q6 PRN PRN Reason: Headache Last Admin: 07/02/17 01:16 Dose: 650 mg Bismuth Subsalicylate (Pepto Bismol) 262 mg PO QID [facility] Last Admin: 07/09/17 21:24 Dose: 262 mg Clonidine HCl (Catapres) 0.1 mg PO BID [facility] [place] Last Admin: 07/09/17 18:08 Dose: 0.1 mg Enoxaparin Sodium (Lovenox) 40 mg SC DAILY [facility] [place] Last Admin: 07/09/17 09:20 Dose: 40 mg Ergocalciferol (Drisdol 50,000 Intl Units Cap) 1 cap PO QWK [facility] Last Admin: 07/07/17 12:49 Dose: 1 cap Famotidine (Pepcid) 20 mg PO DAILY [facility] Last Admin: 07/09/17 09:20 Dose: 20 mg Sodium Chloride (Sodium Chloride 0.9%) 1,000 mls @ 100 mls/hr IV .Q10H [facility] [place] Last Admin: 07/09/17 18:10 Dose: 100 mls/hr Insulin Aspart (Novolog) 0 unit SC ACHS [facility] [place] PRN Reason: Protocol Last Admin: 07/09/17 22:29 Dose: 2 unit Insulin Detemir (Levemir) 14 unit SC HS [facility] [place] Last Admin: 07/09/17 21:36 Dose: 14 unit Insulin Human Regular (Novolin R) 5 unit SC TIDPC [facility] Last Admin: 07/09/17 18:33 Dose: Not Given Lactobacillus Acidophilus (Bacid Acidophilus) 1 cap PO BID [facility] Last Admin: 07/09/17 18:08 Dose: 1 cap Tacrolimus (Prograf Cap) 1 mg PO Q12 [facility] [place] Last Admin: 07/09/17 21:24 Dose: 1 mg Temazepam (Restoril) 30 mg PO HS PRN PRN Reason: Insomnia Last Admin: 07/09/17 21:34 Dose: 30 mg - Labs Labs: 07/08/17 10:46 07/09/17 08:06 PT 14.1 SECONDS (9.7-12.2) H 07/01/17 07:58 INR 1.3 07/01/17 07:58 APTT 19 SECONDS (21-34) L 06/29/17 19:33 Assessment and Plan (1) DVT, bilateral lower limbs Status: Acute (2) Anxiety Status: Acute (3) Dehydration Status: Acute (4) Depression Status: Acute (5) Hypokalemia Status: Acute (6) Diarrhea Status: Acute (7) S/P insertion of IVC (inferior vena caval) filter Status: Acute
[2017-07-10] MEDS: Sodium Chloride 0.9% 1,000 ML IV SCH (04:15)
[2017-07-10] MEDS: (Novolog) Insulin Aspart, Recombinant 100 u/ml 10 ml vial SC SCH ×4 (07:55→21:19)
[2017-07-10] MEDS: (Novolin R) Insulin Human Regular 100 units/ml vial SC SCH ×3 (09:00→17:53)
[2017-07-10] MEDS: Bismuth Subsalicylate 262 mg Chew Tab PO SCH ×3 (10:21→17:48)
[2017-07-10] MEDS: Enoxaparin 60 mg Syringe SC SCH (10:22)
[2017-07-10] MEDS: Lactobacillus Acidophilus 500 MU Cap PO SCH ×2 (10:22→17:48)
[2017-07-10] MEDS: Vancomycin 125 MG/5 ML SOLN (ORAL/RECTAL) PO SCH ×4 (11:00→21:54)
[2017-07-10 15:51] VITALS: RESP 20
[2017-07-10] MEDS: Insulin Detemir 100 units/ml Vial (Levemir) SC SCH (21:55)
--- NOTE | 2017-07-10 23:23 | CP.PCM.PN ---
Subjective - Date & Time of Evaluation Date of Evaluation: 07/10/17 Time of Evaluation: 18:00 - Subjective Subjective: PT SEEN AND EXAMINED AT BEDSIDE Objective - Vital Signs/Intake and Output Vital Signs (last 24 hours): Temp Pulse Resp BP Pulse Ox 97.9 F 86 20 132/77 98 07/10/17 15:50 07/10/17 15:50 07/10/17 15:50 07/10/17 15:50 07/10/17 15:50 Intake and Output: 07/10/17 07/11/17 18:59 06:59 Intake Total 250 Balance 250 - Medications Medications: Current Medications Acetaminophen (Tylenol 325mg Tab) 650 mg PO Q6 PRN PRN Reason: Headache Last Admin: 07/02/17 01:16 Dose: 650 mg Bismuth Subsalicylate (Pepto Bismol) 262 mg PO BID [facility] Clonidine HCl (Catapres) 0.1 mg PO BID [facility] Last Admin: 07/10/17 17:48 Dose: 0.1 mg Enoxaparin Sodium (Lovenox) 40 mg SC DAILY [facility] Last Admin: 07/10/17 10:22 Dose: 40 mg Ergocalciferol (Drisdol 50,000 Intl Units Cap) 1 cap PO QWK [facility] Last Admin: 07/07/17 12:49 Dose: 1 cap Famotidine (Pepcid) 20 mg PO DAILY [facility] Last Admin: 07/10/17 10:21 Dose: 20 mg Sodium Chloride (Sodium Chloride 0.9%) 1,000 mls @ 100 mls/hr IV .Q10H [facility] Last Admin: 07/10/17 04:15 Dose: Not Given Insulin Aspart (Novolog) 0 unit SC ACHS [facility] PRN Reason: Protocol Last Admin: 07/10/17 21:19 Dose: Not Given Insulin Detemir (Levemir) 14 unit SC HS [facility] Last Admin: 07/10/17 21:55 Dose: 14 unit Insulin Human Regular (Novolin R) 5 unit SC TIDPC [facility] Last Admin: 07/10/17 17:53 Dose: Not Given Lactobacillus Acidophilus (Bacid Acidophilus) 1 cap PO BID [facility] Last Admin: 07/10/17 17:48 Dose: 1 cap Tacrolimus (Prograf Cap) 1 mg PO Q12 [facility] Last Admin: 07/10/17 21:53 Dose: 1 mg Temazepam (Restoril) 30 mg PO HS PRN PRN Reason: Insomnia Last Admin: 07/10/17 21:54 Dose: 30 mg Vancomycin HCl (Vancocin (Oral Or Rectal Use)) 125 mg PO QID [facility] PRN Reason: Protocol Last Admin: 07/10/17 21:54 Dose: 125 mg - Labs Labs: 07/08/17 10:46 07/09/17 08:06 PT 14.1 SECONDS (9.7-12.2) H 07/01/17 07:58 INR 1.3 07/01/17 07:58 APTT 19 SECONDS (21-34) L 06/29/17 19:33 Assessment and Plan (1) DVT, bilateral lower limbs Status: Acute (2) Anxiety Status: Acute (3) Dehydration Status: Acute (4) Depression Status: Acute (5) Hypokalemia Status: Acute (6) Diarrhea Status: Acute (7) S/P insertion of IVC (inferior vena caval) filter Status: Acute
[2017-07-11] MEDS: (Novolog) Insulin Aspart, Recombinant 100 u/ml 10 ml vial SC SCH ×4 (07:51→21:23)
[2017-07-11] MEDS: (Novolin R) Insulin Human Regular 100 units/ml vial SC SCH ×3 (09:00→17:34)
[2017-07-11] MEDS: Enoxaparin 60 mg Syringe SC SCH (09:48)
[2017-07-11] MEDS: Bismuth Subsalicylate 262 mg Chew Tab PO SCH ×2 (09:48→21:41)
[2017-07-11] MEDS: Lactobacillus Acidophilus 500 MU Cap PO SCH ×2 (09:49→17:34)
[2017-07-11] MEDS: Vancomycin 125 MG/5 ML SOLN (ORAL/RECTAL) PO SCH ×4 (10:00→21:38)
--- NOTE | 2017-07-11 18:03 | CP.PCM.PN ---
Subjective - Date & Time of Evaluation Date of Evaluation: 07/11/17 Time of Evaluation: 18:00 - Subjective Subjective: Pt seen and examined, afebrile, is feeling better Objective - Vital Signs/Intake and Output Vital Signs (last 24 hours): Temp Pulse Resp BP Pulse Ox 98.6 F 75 20 124/80 99 07/11/17 15:00 07/11/17 15:00 07/11/17 15:00 07/11/17 15:00 07/11/17 15:00 Intake and Output: 07/11/17 07/11/17 06:59 18:59 Intake Total 840 450 Balance 840 450 - Medications Medications: Current Medications Acetaminophen (Tylenol 325mg Tab) 650 mg PO Q6 PRN PRN Reason: Headache Last Admin: 07/02/17 01:16 Dose: 650 mg Bismuth Subsalicylate (Pepto Bismol) 262 mg PO BID [facility] Last Admin: 07/11/17 09:48 Dose: 262 mg Clonidine HCl (Catapres) 0.1 mg PO BID [facility] Last Admin: 07/11/17 17:37 Dose: 0.1 mg Enoxaparin Sodium (Lovenox) 40 mg SC DAILY [facility] Last Admin: 07/11/17 09:48 Dose: 40 mg Ergocalciferol (Drisdol 50,000 Intl Units Cap) 1 cap PO QWK [facility] Last Admin: 07/07/17 12:49 Dose: 1 cap Famotidine (Pepcid) 20 mg PO DAILY [facility] Last Admin: 07/11/17 09:48 Dose: 20 mg Insulin Aspart (Novolog) 0 unit SC ACHS [facility] PRN Reason: Protocol Last Admin: 07/11/17 17:05 Dose: Not Given Insulin Detemir (Levemir) 10 unit SC HS [facility] Insulin Human Regular (Novolin R) 5 unit SC TIDPC [facility] Last Admin: 07/11/17 17:34 Dose: 5 unit Lactobacillus Acidophilus (Bacid Acidophilus) 1 cap PO BID [facility] Last Admin: 07/11/17 17:34 Dose: 1 cap Tacrolimus (Prograf Cap) 1 mg PO Q12 [facility] Last Admin: 07/11/17 09:49 Dose: 1 mg Temazepam (Restoril) 30 mg PO HS PRN PRN Reason: Insomnia Last Admin: 07/10/17 21:54 Dose: 30 mg Vancomycin HCl (Vancocin (Oral Or Rectal Use)) 125 mg PO QID [facility] PRN Reason: Protocol Last Admin: 07/11/17 17:34 Dose: 125 mg - Labs Labs: 07/08/17 10:46 07/09/17 08:06 PT 14.1 SECONDS (9.7-12.2) H 07/01/17 07:58 INR 1.3 07/01/17 07:58 APTT 19 SECONDS (21-34) L 06/29/17 19:33 Assessment and Plan (1) DVT, bilateral lower limbs Status: Acute (2) Anxiety Status: Acute (3) Dehydration Status: Acute (4) Depression Status: Acute (5) Hypokalemia Status: Acute (6) Diarrhea Status: Acute (7) S/P insertion of IVC (inferior vena caval) filter Status: Acute
[2017-07-11] MEDS: Insulin Detemir 100 units/ml Vial (Levemir) SC SCH (21:37)
[2017-07-12] MEDS: (Novolog) Insulin Aspart, Recombinant 100 u/ml 10 ml vial SC SCH ×4 (07:33→21:42)
[2017-07-12 07:52] LABS: BASO % 1.1 % (0.0-2.0); EOS # 0.1 K/uL (0.0-0.7); EOS % 5.1 % (0.0-4.0); HEMOGLOBIN 8.7 g/dL (11.0-16.0); LYMPH # 0.7 K/uL (1.0-4.3); LYMPH % 43.6 % (20.0-40.0); MEAN CELL VOLUME 84.5 fL (81.0-99.0); MEAN CORPUSCULAR HEMOGLOBIN 28.4 pg (27.0-31.0); MEAN CORPUSCULAR HGB CONC 33.6 g/dL (33.0-37.0); MEAN PLATELET VOLUME 7.8 fL (7.2-11.7); MONO # 0.1 K/uL (0.0-0.8); MONO % 8.2 % (0.0-10.0); NEUT # 0.7 K/uL (1.8-7.0); RBC 3.05 Mil/uL (3.80-5.20); RED CELL DISTRIBUTION WIDTH 17.5 % (11.5-14.5)
[2017-07-12 07:55] LABS: WHITE BLOOD COUNT 1.6 K/uL (4.8-10.8)
[2017-07-12 08:05] LABS: BLOOD UREA NITROGEN 8 mg/dL (7-17); CALCIUM 8.5 mg/dl (8.6-10.4); GFR AFRICAN-AMERICAN > 60; GFR NON-AFRICAN AMERICAN > 60
[2017-07-12] MEDS: Enoxaparin 60 mg Syringe SC SCH (09:09)
[2017-07-12] MEDS: Bismuth Subsalicylate 262 mg Chew Tab PO SCH ×2 (09:10→17:37)
[2017-07-12] MEDS: Lactobacillus Acidophilus 500 MU Cap PO SCH ×2 (09:10→17:31)
[2017-07-12] MEDS: Vancomycin 125 MG/5 ML SOLN (ORAL/RECTAL) PO SCH ×4 (09:16→21:43)
[2017-07-12] MEDS: (Novolin R) Insulin Human Regular 100 units/ml vial SC SCH ×3 (09:18→17:31)
[2017-07-12] MEDS: Insulin Detemir 100 units/ml Vial (Levemir) SC SCH (21:46)
--- NOTE | 2017-07-12 23:21 | CP.PCM.PN ---
Subjective - Date & Time of Evaluation Date of Evaluation: 07/12/17 Time of Evaluation: 19:00 - Subjective Subjective: Pt is seen and examined today during rounds Objective - Vital Signs/Intake and Output Vital Signs (last 24 hours): Temp Pulse Resp BP Pulse Ox 98.5 F 77 20 129/68 99 07/12/17 15:43 07/12/17 15:43 07/12/17 15:43 07/12/17 15:43 07/12/17 15:43 Intake and Output: 07/12/17 07/13/17 18:59 06:59 Intake Total 400 Balance 400 - Medications Medications: Current Medications Acetaminophen (Tylenol 325mg Tab) 650 mg PO Q6 PRN PRN Reason: Headache Last Admin: 07/02/17 01:16 Dose: 650 mg Bismuth Subsalicylate (Pepto Bismol) 262 mg PO BID [facility] Last Admin: 07/12/17 17:37 Dose: Not Given Clonidine HCl (Catapres) 0.1 mg PO BID [facility] Last Admin: 07/12/17 17:31 Dose: 0.1 mg Enoxaparin Sodium (Lovenox) 40 mg SC DAILY [facility] Last Admin: 07/12/17 09:09 Dose: 40 mg Ergocalciferol (Drisdol 50,000 Intl Units Cap) 1 cap PO QWK [facility] Last Admin: 07/07/17 12:49 Dose: 1 cap Famotidine (Pepcid) 20 mg PO DAILY [facility] Last Admin: 07/12/17 09:09 Dose: 20 mg Folic Acid (Folic Acid) 1 mg PO DAILY [facility] Last Admin: 07/12/17 12:19 Dose: 1 mg Insulin Aspart (Novolog) 0 unit SC ACHS [facility] PRN Reason: Protocol Last Admin: 07/12/17 21:42 Dose: Not Given Insulin Detemir (Levemir) 10 unit SC HS [facility] Last Admin: 07/12/17 21:46 Dose: Not Given Insulin Human Regular (Novolin R) 5 unit SC TIDPC [facility] Last Admin: 07/12/17 17:31 Dose: 5 unit Lactobacillus Acidophilus (Bacid Acidophilus) 1 cap PO BID [facility] Last Admin: 07/12/17 17:31 Dose: 1 cap Tacrolimus (Prograf Cap) 1 mg PO Q12 [facility] Last Admin: 07/12/17 21:53 Dose: 1 mg Temazepam (Restoril) 30 mg PO HS PRN PRN Reason: Insomnia Last Admin: 07/12/17 21:43 Dose: 30 mg Vancomycin HCl (Vancocin (Oral Or Rectal Use)) 125 mg PO QID [facility] PRN Reason: Protocol Last Admin: 07/12/17 21:43 Dose: 125 mg - Labs Labs: 07/12/17 07:36 07/12/17 07:36 PT 14.1 SECONDS (9.7-12.2) H 07/01/17 07:58 INR 1.3 07/01/17 07:58 APTT 19 SECONDS (21-34) L 06/29/17 19:33 Assessment and Plan (1) DVT, bilateral lower limbs Status: Acute (2) Anxiety Status: Acute (3) Dehydration Status: Acute (4) Depression Status: Acute (5) Hypokalemia Status: Acute (6) Diarrhea Status: Acute (7) S/P insertion of IVC (inferior vena caval) filter Status: Acute
[2017-07-13 06:49] LABS: HEMOGLOBIN 8.9 g/dL (11.0-16.0); MEAN CELL VOLUME 86.4 fL (81.0-99.0); MEAN CORPUSCULAR HEMOGLOBIN 28.3 pg (27.0-31.0); MEAN CORPUSCULAR HGB CONC 32.7 g/dL (33.0-37.0); MEAN PLATELET VOLUME 8.7 fL (7.2-11.7); RBC 3.14 Mil/uL (3.80-5.20); RED CELL DISTRIBUTION WIDTH 17.7 % (11.5-14.5)
[2017-07-13] MEDS: (Novolog) Insulin Aspart, Recombinant 100 u/ml 10 ml vial SC SCH ×5 (07:00→22:08)
[2017-07-13] MEDS: (Novolin R) Insulin Human Regular 100 units/ml vial SC SCH ×3 (08:20→17:36)
[2017-07-13] MEDS: Vancomycin 125 MG/5 ML SOLN (ORAL/RECTAL) PO SCH ×4 (10:08→22:11)
[2017-07-13] MEDS: Lactobacillus Acidophilus 500 MU Cap PO SCH ×2 (10:09→17:36)
[2017-07-13] MEDS: Bismuth Subsalicylate 262 mg Chew Tab PO SCH ×2 (10:09→17:36)
[2017-07-13] MEDS: Enoxaparin 40 mg Syringe SC SCH (10:23)
[2017-07-13] MEDS: Insulin Detemir 100 units/ml Vial (Levemir) SC SCH (22:08)
--- NOTE | 2017-07-13 23:22 | CP.PCM.PN ---
Subjective - Date & Time of Evaluation Date of Evaluation: 07/13/17 Time of Evaluation: 18:00 - Subjective Subjective: pt seen and examined Objective - Vital Signs/Intake and Output Vital Signs (last 24 hours): Temp Pulse Resp BP Pulse Ox 98 F 86 20 122/67 98 07/13/17 15:00 07/13/17 15:00 07/13/17 15:00 07/13/17 15:00 07/13/17 15:00 Intake and Output: 07/13/17 07/14/17 18:59 06:59 Intake Total 350 600 Balance 350 600 - Medications Medications: Current Medications Acetaminophen (Tylenol 325mg Tab) 650 mg PO Q6 PRN PRN Reason: Headache Last Admin: 07/02/17 01:16 Dose: 650 mg Bismuth Subsalicylate (Pepto Bismol) 262 mg PO BID [facility] Last Admin: 07/13/17 17:36 Dose: 262 mg Clonidine HCl (Catapres) 0.1 mg PO BID [facility] Last Admin: 07/13/17 17:35 Dose: 0.1 mg Enoxaparin Sodium (Lovenox) 40 mg SC DAILY [facility] Last Admin: 07/13/17 10:23 Dose: 40 mg Ergocalciferol (Drisdol 50,000 Intl Units Cap) 1 cap PO QWK [facility] Last Admin: 07/07/17 12:49 Dose: 1 cap Famotidine (Pepcid) 20 mg PO DAILY [facility] Last Admin: 07/13/17 10:08 Dose: 20 mg Folic Acid (Folic Acid) 1 mg PO DAILY [facility] Last Admin: 07/13/17 10:09 Dose: 1 mg Insulin Aspart (Novolog) 0 unit SC ACHS [facility] PRN Reason: Protocol Last Admin: 07/13/17 22:08 Dose: Not Given Insulin Detemir (Levemir) 10 unit SC HS [facility] Last Admin: 07/13/17 22:08 Dose: 10 unit Insulin Human Regular (Novolin R) 5 unit SC TIDPC [facility] Last Admin: 07/13/17 17:36 Dose: 5 unit Lactobacillus Acidophilus (Bacid Acidophilus) 1 cap PO BID [facility] Last Admin: 07/13/17 17:36 Dose: 1 cap Tacrolimus (Prograf Cap) 1 mg PO Q12 [facility] Last Admin: 07/13/17 22:07 Dose: 1 mg Temazepam (Restoril) 30 mg PO HS PRN PRN Reason: Insomnia Last Admin: 07/13/17 22:11 Dose: 30 mg Vancomycin HCl (Vancocin (Oral Or Rectal Use)) 125 mg PO QID [facility] PRN Reason: Protocol Last Admin: 07/13/17 22:11 Dose: 125 mg - Labs Labs: 07/13/17 06:40 07/12/17 07:36 PT 14.1 SECONDS (9.7-12.2) H 07/01/17 07:58 INR 1.3 07/01/17 07:58 APTT 19 SECONDS (21-34) L 06/29/17 19:33 Assessment and Plan (1) DVT, bilateral lower limbs Status: Acute (2) Anxiety Status: Acute (3) Dehydration Status: Acute (4) Depression Status: Acute (5) Hypokalemia Status: Acute (6) Diarrhea Status: Acute (7) S/P insertion of IVC (inferior vena caval) filter Status: Acute
[2017-07-14 07:09] LABS: BASO % 1.8 % (0.0-2.0); EOS # 0.1 K/uL (0.0-0.7); EOS % 3.9 % (0.0-4.0); HEMOGLOBIN 9.4 g/dL (11.0-16.0); LYMPH # 0.7 K/uL (1.0-4.3); LYMPH % 33.3 % (20.0-40.0); MEAN CELL VOLUME 84.5 fL (81.0-99.0); MEAN CORPUSCULAR HGB CONC 33.1 g/dL (33.0-37.0); MEAN PLATELET VOLUME 8.1 fL (7.2-11.7); MONO # 0.2 K/uL (0.0-0.8); MONO % 7.7 % (0.0-10.0); NEUT # 1.2 K/uL (1.8-7.0); NEUT % 53.3 % (50.0-75.0); RBC 3.37 Mil/uL (3.80-5.20); WHITE BLOOD COUNT 2.2 K/uL (4.8-10.8)
[2017-07-14] MEDS: (Novolog) Insulin Aspart, Recombinant 100 u/ml 10 ml vial SC SCH ×4 (07:30→21:55)
[2017-07-14 07:32] LABS: BLOOD UREA NITROGEN 13 mg/dL (7-17); CALCIUM 9.1 mg/dl (8.6-10.4); GFR AFRICAN-AMERICAN > 60; GFR NON-AFRICAN AMERICAN > 60
[2017-07-14] MEDS: Lactobacillus Acidophilus 500 MU Cap PO SCH ×2 (09:54→17:21)
[2017-07-14] MEDS: Ergocalciferol 50,000 Intl Units Cap PO SCH (09:54)
[2017-07-14] MEDS: Vancomycin 125 MG/5 ML SOLN (ORAL/RECTAL) PO SCH ×4 (09:54→21:52)
[2017-07-14] MEDS: Enoxaparin 40 mg Syringe SC SCH (09:54)
[2017-07-14] MEDS: (Novolin R) Insulin Human Regular 100 units/ml vial SC SCH ×3 (09:55→17:17)
[2017-07-14] MEDS: ARIPIPRAZOLE 2.5 MG PO SCH ×3 (12:00→22:01)
--- NOTE | 2017-07-14 21:39 | CON ---
DATE: 07/14/2017. CHIEF COMPLAINT AND REASON FOR CONSULTATION: The patient referred by Dr. Hall as the patient has history of delusional disorder and bipolar disorder. The patient is complaining of hearing voices today. HISTORY OF PRESENT ILLNESS: This is the case of a 77-year-old female who is well known to me. The patient has history of bipolar and delusion disorder in the past. The patient was admitted here for bilateral leg pain and difficulty walking. The patient diagnosed on admission for possible DVT, then referred today as the patient has main complaint of hearing voices and being paranoid. The patient has history of hearing voices as chronic delusion that the neighbor upstairs are trying to hurt her and also send drugs to her apartment. This is a chronic complaint and also talking about her going on for years. The patient was admitted before at [facility], she used to take Abilify, Trazodone and Temazepam. The patient is off her antipsychotic at this time. She is pleasant and cooperative, but having increasing symptoms. PAST PSYCHIATRIC HISTORY: History of delusion disorder and bipolar has been admitted numerous times at [facility]. ALLERGIES: NO KNOWN ALLERGIES. SOCIAL HISTORY: The patient lives alone. MEDICAL HISTORY: History of depression, psychosis, delusion disorder, bipolar, history of UTI, sepsis, pneumonia, status post liver transplant as well as history of diabetes. PHYSICAL EXAMINATION: VITAL SIGNS: Temperature is 97.9, pulse 87, blood pressure 136/70, respirations 20 and oxygen saturation is 97%. LABORATORY DATA: Review of her labs WBC is 2.2, H and H are 9.4/28.5. Her blood sugar the last one is 88, creatinine 0.9. C. difficile assay is negative. CURRENT MEDICATIONS: Include lactobacillus acidophilus, clonidine, the patient is on folate, insulin, Lovenox, tacrolimus as well as temazepam 30 mg at bedtime as well as vancomycin. REVIEW OF SYSTEMS: GENERAL: The patient is alert, oriented x3, seen in her room, still delusional. Not in acute respiratory distress. She said she starting to hear voices about the people on top of her apartment talking about her. SKIN: No diaphoresis. HEENT: No headache, no dizziness. NECK: Supple. RESPIRATORY: No dyspnea. CARDIOVASCULAR: No chest pain. GASTROINTESTINAL: She is eating well. EXTREMITIES: Complaining of mild pain in her both lower extremities. NEUROLOGIC: Alert and oriented x3. GENITOURINARY: No dysuria. MENTAL STATUS EXAMINATION: A well developed elderly female, who looks stated age. Alert and oriented x3, conversing in [place]. The patient is chronically delusional and paranoid. Speech spontaneous. Affect is reactive. Thought process, coherent. Thought content, complaining of intermittent auditory hallucinations as well as paranoia. No suicidal or homicidal ideation. Attention and memory seem to be fair. Insight and judgment fair. Impulse control is fair. IMPRESSION: History of bipolar as well as history of delusion disorder, paranoia type, history of deep vein thrombosis. PLAN AND RECOMMENDATION: The patient seen, meds reviewed. May continue the Temazepam 30 mg at bedtime as well as we will put her on Abilify 2.5 mg p.o. every 12 hours, when the patient was admitted at [facility], this was the medication that was given to her for her chronic delusions and paranoia. Continue treatment plan as outlined. Thank you for the consult. Adama Mccarthy MD MTD[facility]elsy
[2017-07-14] MEDS: Insulin Detemir 100 units/ml Vial (Levemir) SC SCH (21:54)
--- NOTE | 2017-07-14 23:44 | CP.PCM.PN ---
Subjective - Date & Time of Evaluation Date of Evaluation: 07/14/17 Time of Evaluation: 17:00 - Subjective Subjective: pt seen and examined today. Objective - Vital Signs/Intake and Output Vital Signs (last 24 hours): Temp Pulse Resp BP Pulse Ox 97.7 F 82 20 133/74 99 07/14/17 15:00 07/14/17 15:00 07/14/17 15:00 07/14/17 15:00 07/14/17 15:00 Intake and Output: 07/14/17 07/15/17 18:59 06:59 Intake Total 280 Balance 280 - Medications Medications: Current Medications Acetaminophen (Tylenol 325mg Tab) 650 mg PO Q6 PRN PRN Reason: Headache Last Admin: 07/02/17 01:16 Dose: 650 mg Aripiprazole (Abilify) 2.5 mg PO Q12H [facility] Last Admin: 07/14/17 22:01 Dose: Not Given Clonidine HCl (Catapres) 0.1 mg PO BID [facility] Last Admin: 07/14/17 17:21 Dose: 0.1 mg Enoxaparin Sodium (Lovenox) 40 mg SC DAILY [facility] Last Admin: 07/14/17 09:54 Dose: 40 mg Ergocalciferol (Drisdol 50,000 Intl Units Cap) 1 cap PO QWK [facility] Last Admin: 07/14/17 09:54 Dose: 1 cap Famotidine (Pepcid) 20 mg PO DAILY [facility] Last Admin: 07/14/17 09:54 Dose: 20 mg Folic Acid (Folic Acid) 1 mg PO DAILY [facility] Last Admin: 07/14/17 09:54 Dose: 1 mg Insulin Aspart (Novolog) 0 unit SC ACHS [facility] PRN Reason: Protocol Last Admin: 07/14/17 21:55 Dose: 3 unit Insulin Detemir (Levemir) 10 unit SC HS [facility] Last Admin: 07/14/17 21:54 Dose: 10 unit Insulin Human Regular (Novolin R) 5 unit SC TIDPC [facility] Last Admin: 07/14/17 17:17 Dose: Not Given Lactobacillus Acidophilus (Bacid Acidophilus) 1 cap PO BID [facility] Last Admin: 07/14/17 17:21 Dose: 1 cap Tacrolimus (Prograf Cap) 1 mg PO Q12 [facility] Last Admin: 07/14/17 21:53 Dose: 1 mg Temazepam (Restoril) 30 mg PO HS PRN PRN Reason: Insomnia Last Admin: 07/14/17 21:53 Dose: 30 mg Vancomycin HCl (Vancocin (Oral Or Rectal Use)) 125 mg PO QID [facility] PRN Reason: Protocol Last Admin: 07/14/17 21:52 Dose: 125 mg - Labs Labs: 07/14/17 07:00 07/14/17 07:00 PT 14.1 SECONDS (9.7-12.2) H 07/01/17 07:58 INR 1.3 07/01/17 07:58 APTT 19 SECONDS (21-34) L 06/29/17 19:33 Assessment and Plan (1) DVT, bilateral lower limbs Status: Acute (2) Anxiety Status: Acute (3) Dehydration Status: Acute (4) Depression Status: Acute (5) Hypokalemia Status: Acute (6) Diarrhea Status: Acute (7) S/P insertion of IVC (inferior vena caval) filter Status: Acute
[2017-07-15 06:32] LABS: BASO % 1.4 % (0.0-2.0); EOS # 0.1 K/uL (0.0-0.7); EOS % 5.2 % (0.0-4.0); HEMOGLOBIN 8.6 g/dL (11.0-16.0); LYMPH # 0.7 K/uL (1.0-4.3); MEAN CORPUSCULAR HGB CONC 33.3 g/dL (33.0-37.0); MEAN PLATELET VOLUME 7.7 fL (7.2-11.7); MONO # 0.2 K/uL (0.0-0.8); MONO % 8.8 % (0.0-10.0); NEUT # 0.8 K/uL (1.8-7.0); NEUT % 44.6 % (50.0-75.0); NRBC % 0.1 % (0.0-2.0); RBC 3.06 Mil/uL (3.80-5.20); RED CELL DISTRIBUTION WIDTH 17.5 % (11.5-14.5)
[2017-07-15 06:43] LABS: WHITE BLOOD COUNT 1.8 K/uL (4.8-10.8)
[2017-07-15 06:55] LABS: BLOOD UREA NITROGEN 10 mg/dL (7-17); CALCIUM 8.5 mg/dl (8.6-10.4); GFR AFRICAN-AMERICAN > 60; GFR NON-AFRICAN AMERICAN > 60
[2017-07-15] MEDS: (Novolog) Insulin Aspart, Recombinant 100 u/ml 10 ml vial SC SCH ×4 (07:14→22:14)
[2017-07-15] MEDS: Vancomycin 125 MG/5 ML SOLN (ORAL/RECTAL) PO SCH (09:25)
[2017-07-15] MEDS: Lactobacillus Acidophilus 500 MU Cap PO SCH ×2 (09:27→17:57)
[2017-07-15] MEDS: Enoxaparin 40 mg Syringe SC SCH (09:27)
[2017-07-15] MEDS: (Novolin R) Insulin Human Regular 100 units/ml vial SC SCH ×3 (09:30→18:00)
[2017-07-15] MEDS: ARIPIPRAZOLE 2.5 MG PO SCH ×2 (13:00→22:14)
[2017-07-15] MEDS ORDERED: Dextrose 50% SYRINGE Inj (50 ml) IV STA (15:54)
[2017-07-15] MEDS ORDERED: Dextrose 50% SYRINGE Inj (50 ml) IVP PRN (15:55)
--- NOTE | 2017-07-15 17:50 | PN ---
DATE: SUBJECTIVE: The patient is seen. The patient states that she is having diarrhea. She was just restarted with psych meds, Abilify 2.5 mg p.o. b.i.d. as the patient has chronic paranoid delusions, and also hearing voices. The patient reports hearing voices, but reports her paranoia is a little better. She also reports she is sleeping better. PHYSICAL EXAMINATION: VITAL SIGNS: Temperature is 98.7, pulse rate is 85, blood pressure is 129/74, respirations 20, oxygen saturation is 96%. REVIEW OF SYSTEMS: GENERAL: The patient is alert, oriented x3, seen in her room. She states that she is having diarrhea, but no behavioral problems. SKIN: No diaphoresis. HEENT: No headache. No dizziness. NECK: Supple. RESPIRATORY: No dyspnea. CARDIOVASCULAR: No chest pain. GASTROINTESTINAL: She is eating. EXTREMITIES: Moving extremities. MUSCULOSKELETAL: Feels weak. NEUROLOGICAL: Alert and oriented x3. GENITOURINARY: No dysuria. MENTAL STATUS EXAMINATION: An elderly female, who looks stated age, alert and oriented x3. Mood is anxious and somatic. Affect is reactive. Thought process, coherent. Thought content, still has persistent paranoid delusions that the apartment tenant above her unit is trying to poison her, hurt her, and send drugs to her apartment. This is a chronic complaint of the patient. No suicidal or homicidal ideation. No hallucinations mentioned today. Attention and memory seem to be fair. Insight and judgement limited. Impulse control is fair at this time. IMPRESSION: History of bipolar disorder as well as delusional disorder, but paranoid type, no history of deep venous thrombosis. PLAN AND RECOMMENDATIONS: The patient is seen, meds reviewed. Continue temazepam as ordered as well as Abilify 2.5 every 12 hours. The patient to continue treatment plan as outlined. Once the patient is medically stable, she can go back home. Adama Mccarthy MD [facility]
[2017-07-15] MEDS ORDERED: Miconazole 2% Vaginal Cream(45 gm) VG SCH (22:00)
[2017-07-15] MEDS: Insulin Detemir 100 units/ml Vial (Levemir) SC SCH (22:15)
--- NOTE | 2017-07-16 00:03 | CP.PCM.PN ---
Subjective - Date & Time of Evaluation Date of Evaluation: 07/15/17 Time of Evaluation: 18:00 - Subjective Subjective: pt is seen and evaluated today Objective - Vital Signs/Intake and Output Vital Signs (last 24 hours): Temp Pulse Resp BP Pulse Ox 97.8 F 100 H 20 150/78 100 07/15/17 15:00 07/15/17 15:00 07/15/17 15:00 07/15/17 15:00 07/15/17 15:00 Intake and Output: 07/15/17 07/16/17 18:59 06:59 Intake Total 240 Balance 240 - Medications Medications: Current Medications Acetaminophen (Tylenol 325mg Tab) 650 mg PO Q6 PRN PRN Reason: Headache Last Admin: 07/02/17 01:16 Dose: 650 mg Aripiprazole (Abilify) 2.5 mg PO Q12H [facility] Last Admin: 07/15/17 22:14 Dose: 2.5 mg Clonidine HCl (Catapres) 0.1 mg PO BID [facility] Last Admin: 07/15/17 17:57 Dose: 0.1 mg Dextrose (Dextrose 50% Inj) 0 ml IVP .STAT PRN; Protocol PRN Reason: Hypoglycemia Protocol Dextrose (Glutose 15) 0 gm PO .ONCE PRN; Protocol PRN Reason: Hypoglycemia Protocol Enoxaparin Sodium (Lovenox) 40 mg SC DAILY [facility] Last Admin: 07/15/17 09:27 Dose: 40 mg Ergocalciferol (Drisdol 50,000 Intl Units Cap) 1 cap PO QWK [facility] Last Admin: 07/14/17 09:54 Dose: 1 cap Famotidine (Pepcid) 20 mg PO DAILY [facility] Last Admin: 07/15/17 09:30 Dose: 20 mg Folic Acid (Folic Acid) 1 mg PO DAILY [facility] Last Admin: 07/15/17 09:26 Dose: 1 mg Dextrose (Dextrose 5% In Water 1000 Ml) 1,000 mls @ 0 mls/hr IV .Q0M PRN; Protocol; Per Protocol PRN Reason: Hypoglycemia Protocol Insulin Aspart (Novolog) 0 unit SC ACHS [facility] PRN Reason: Protocol Last Admin: 07/15/17 22:14 Dose: 2 unit Insulin Detemir (Levemir) 10 unit SC HS [facility] Last Admin: 07/15/17 22:15 Dose: 10 unit Insulin Human Regular (Novolin R) 5 unit SC TIDPC [facility] Last Admin: 07/15/17 18:00 Dose: Not Given Lactobacillus Acidophilus (Bacid Acidophilus) 1 cap PO BID [facility] Last Admin: 07/15/17 17:57 Dose: 1 cap Miconazole Nitrate (Monistat 7 Vaginal Cream) 0 ea VG HS [facility] Last Admin: 07/15/17 22:21 Dose: 1 applic Tacrolimus (Prograf Cap) 1 mg PO Q12 [facility] Last Admin: 07/15/17 22:14 Dose: 1 mg Temazepam (Restoril) 30 mg PO HS PRN PRN Reason: Insomnia Last Admin: 07/15/17 22:19 Dose: 30 mg - Labs Labs: 07/15/17 06:25 07/15/17 06:25 PT 14.1 SECONDS (9.7-12.2) H 07/01/17 07:58 INR 1.3 07/01/17 07:58 APTT 19 SECONDS (21-34) L 06/29/17 19:33 Assessment and Plan (1) DVT, bilateral lower limbs Status: Acute (2) Anxiety Status: Acute (3) Dehydration Status: Acute (4) Depression Status: Acute (5) Hypokalemia Status: Acute (6) Diarrhea Status: Acute (7) S/P insertion of IVC (inferior vena caval) filter Status: Acute
[2017-07-16 01:22] VITALS: O2SAT 97
[2017-07-16 06:42] LABS: BLOOD UREA NITROGEN 10 mg/dL (7-17); CALCIUM 8.9 mg/dl (8.6-10.4); GFR AFRICAN-AMERICAN > 60; GFR NON-AFRICAN AMERICAN > 60
[2017-07-16 06:56] LABS: BASO % 1.5 % (0.0-2.0); EOS # 0.1 K/uL (0.0-0.7); EOS % 4.9 % (0.0-4.0); HEMOGLOBIN 9.2 g/dL (11.0-16.0); LYMPH # 0.9 K/uL (1.0-4.3); LYMPH % 41.2 % (20.0-40.0); MEAN CELL VOLUME 83.9 fL (81.0-99.0); MEAN CORPUSCULAR HEMOGLOBIN 28.3 pg (27.0-31.0); MEAN CORPUSCULAR HGB CONC 33.7 g/dL (33.0-37.0); MEAN PLATELET VOLUME 8.1 fL (7.2-11.7); MONO # 0.2 K/uL (0.0-0.8); MONO % 9.8 % (0.0-10.0); NEUT # 0.9 K/uL (1.8-7.0); NEUT % 42.6 % (50.0-75.0); RBC 3.25 Mil/uL (3.80-5.20); RED CELL DISTRIBUTION WIDTH 17.3 % (11.5-14.5); WHITE BLOOD COUNT 2.2 K/uL (4.8-10.8)
[2017-07-16 08:24] VITALS: BP 118/74; PULSE 81; TEMP 98.5
[2017-07-16] MEDS: (Novolin R) Insulin Human Regular 100 units/ml vial SC SCH ×2 (09:13→13:27)
[2017-07-16] MEDS: Enoxaparin 40 mg Syringe SC SCH (09:14)
[2017-07-16] MEDS: (Novolog) Insulin Aspart, Recombinant 100 u/ml 10 ml vial SC SCH ×3 (09:14→13:27)
[2017-07-16] MEDS: Lactobacillus Acidophilus 500 MU Cap PO SCH (09:15)
[2017-07-16] MEDS: ARIPIPRAZOLE 2.5 MG PO SCH (11:37)
--- NOTE | 2017-07-16 13:48 | CP.PCM.PN ---
Subjective - Date & Time of Evaluation Date of Evaluation: 07/16/17 Time of Evaluation: 11:00 - Subjective Subjective: patient seen today, denies any abdominal pain N/V/D, tolerating diet a febrile Objective - Vital Signs/Intake and Output Vital Signs (last 24 hours): Temp Pulse Resp BP Pulse Ox 98.5 F 81 20 118/74 97 07/16/17 08:22 07/16/17 08:22 07/16/17 08:22 07/16/17 08:22 07/16/17 08:22 Intake and Output: 07/16/17 07/16/17 06:59 18:59 Intake Total 240 Balance 240 - Medications Medications: Current Medications Acetaminophen (Tylenol 325mg Tab) 650 mg PO Q6 PRN PRN Reason: Headache Last Admin: 07/02/17 01:16 Dose: 650 mg Aripiprazole (Abilify) 2.5 mg PO Q12H [facility] Last Admin: 07/16/17 11:37 Dose: 2.5 mg Clonidine HCl (Catapres) 0.1 mg PO BID [facility] Last Admin: 07/16/17 09:15 Dose: 0.1 mg Dextrose (Dextrose 50% Inj) 0 ml IVP .STAT PRN; Protocol PRN Reason: Hypoglycemia Protocol Dextrose (Glutose 15) 0 gm PO .ONCE PRN; Protocol PRN Reason: Hypoglycemia Protocol Enoxaparin Sodium (Lovenox) 40 mg SC DAILY [facility] Last Admin: 07/16/17 09:14 Dose: 40 mg Ergocalciferol (Drisdol 50,000 Intl Units Cap) 1 cap PO QWK [facility] Last Admin: 07/14/17 09:54 Dose: 1 cap Famotidine (Pepcid) 20 mg PO DAILY [facility] Last Admin: 07/16/17 09:15 Dose: 20 mg Folic Acid (Folic Acid) 1 mg PO DAILY [facility] Last Admin: 07/16/17 09:15 Dose: 1 mg Dextrose (Dextrose 5% In Water 1000 Ml) 1,000 mls @ 0 mls/hr IV .Q0M PRN; Protocol; Per Protocol PRN Reason: Hypoglycemia Protocol Insulin Aspart (Novolog) 0 unit SC ACHS [facility] PRN Reason: Protocol Last Admin: 07/16/17 13:27 Dose: 5 unit Insulin Detemir (Levemir) 10 unit SC HS [facility] Last Admin: 07/15/17 22:15 Dose: 10 unit Insulin Human Regular (Novolin R) 5 unit SC TIDPC [facility] Last Admin: 07/16/17 13:27 Dose: 5 unit Lactobacillus Acidophilus (Bacid Acidophilus) 1 cap PO BID [facility] Last Admin: 07/16/17 09:15 Dose: 1 cap Miconazole Nitrate (Monistat 7 Vaginal Cream) 0 ea VG HS [facility] Last Admin: 07/15/17 22:21 Dose: 1 applic Tacrolimus (Prograf Cap) 1 mg PO Q12 [facility] Last Admin: 07/16/17 09:15 Dose: 1 mg Temazepam (Restoril) 30 mg PO HS PRN PRN Reason: Insomnia Last Admin: 07/15/17 22:19 Dose: 30 mg - Labs Labs: 07/16/17 06:20 07/16/17 06:20 PT 14.1 SECONDS (9.7-12.2) H 07/01/17 07:58 INR 1.3 07/01/17 07:58 APTT 19 SECONDS (21-34) L 06/29/17 19:33 - Constitutional Appears: Well, No Acute Distress - Respiratory Exam Respiratory Exam: Clear to Ausculation Bilateral, NORMAL BREATHING PATTERN - Cardiovascular Exam Cardiovascular Exam: REGULAR RHYTHM, +S1, +S2 - Neurological Exam Neurological Exam: Alert, Oriented x3 - Psychiatric Exam Psychiatric exam: Normal Affect Assessment and Plan - Assessment and Plan (Free Text) Assessment: A/P 77 yr old female admitted with lower extremity pain , weakness and diarrhea, pt found to have bilateral dvt on venous doppler. and s/p IVC filter stool c- dif + and treated with vanco, repeat c- dif negative seen by PT today and pateint walks with walker with steady gait D/W Dr. Hall, stable for discharge hometoday and f/u with Dr. Hall office in 1 week CM/SW arranged home PT and pt will receive home care services in am Discharge plan discussed with patient and daughter, who understands and agrees with plan
--- NOTE | 2017-07-16 23:47 | CP.PCM.DIS ---
Provider - Provider Date of Admission: 06/29/17 16:24 Attending physician: Westley Hall MD Time Spent in preparation of Discharge (in minutes): 25 Diagnosis - Discharge Diagnosis (1) DVT, bilateral lower limbs Status: Acute (2) Anxiety Status: Acute (3) Dehydration Status: Acute (4) Depression Status: Acute (5) Hypokalemia Status: Acute (6) Diarrhea Status: Acute (7) S/P insertion of IVC (inferior vena caval) filter Status: Acute Hospital Course - Lab Results Lab Results: Most Recent Lab Values WBC 2.2 K/uL (4.8-10.8) L 07/16/17 06:20 RBC 3.25 Mil/uL (3.80-5.20) L 07/16/17 06:20 Hgb 9.2 g/dL (11.0-16.0) L 07/16/17 06:20 Hct 27.2 % (34.0-47.0) L 07/16/17 06:20 MCV 83.9 fL (81.0-99.0) 07/16/17 06:20 MCH 28.3 pg (27.0-31.0) 07/16/17 06:20 MCHC 33.7 g/dL (33.0-37.0) 07/16/17 06:20 RDW 17.3 % (11.5-14.5) H 07/16/17 06:20 Plt Count 125 K/uL (130-400) L 07/16/17 06:20 MPV 8.1 fL (7.2-11.7) 07/16/17 06:20 Neut % (Auto) 42.6 % (50.0-75.0) L 07/16/17 06:20 Lymph % (Auto) 41.2 % (20.0-40.0) H 07/16/17 06:20 [place] % (Auto) 9.8 % (0.0-10.0) 07/16/17 06:20 Eos % (Auto) 4.9 % (0.0-4.0) H 07/16/17 06:20 Baso % (Auto) 1.5 % (0.0-2.0) 07/16/17 06:20 Neut # (Auto) 0.9 K/uL (1.8-7.0) L 07/16/17 06:20 Lymph # (Auto) 0.9 K/uL (1.0-4.3) L 07/16/17 06:20 [place] # (Auto) 0.2 K/uL (0.0-0.8) 07/16/17 06:20 Eos # (Auto) 0.1 K/uL (0.0-0.7) 07/16/17 06:20 Baso # (Auto) 0.0 K/uL (0.0-0.2) 07/16/17 06:20 Differential Comment 06/29/17 12:56 PT 14.1 SECONDS (9.7-12.2) H 07/01/17 07:58 INR 1.3 07/01/17 07:58 APTT 19 SECONDS (21-34) L 06/29/17 19:33 D-Dimer, Quantitative 2460 ng/mlDDU (0-243) H 06/29/17 12:56 Sodium 140 mmol/L (132-148) 07/16/17 06:20 Potassium 4.1 mmol/L (3.6-5.2) 07/16/17 06:20 Chloride 103 mmol/L (98-107) 07/16/17 06:20 Carbon Dioxide 30 mmol/L (22-30) 07/16/17 06:20 Anion Gap 11 (10-20) 07/16/17 06:20 BUN 10 mg/dL (7-17) 07/16/17 06:20 Creatinine 0.7 mg/dL (0.7-1.2) 07/16/17 06:20 Est GFR ( Amer) > 60 07/16/17 06:20 Est GFR (Non-Af Amer) > 60 07/16/17 06:20 POC Glucose (mg/dL) 384 mg/dL (65-110) H 07/16/17 12:39 Random Glucose 48 mg/dL (65-105) L 07/16/17 06:20 Calcium 8.9 mg/dl (8.6-10.4) 07/16/17 06:20 Total Bilirubin 0.7 mg/dL (0.2-1.3) 07/04/17 07:16 AST 67 U/L (14-36) H D 07/04/17 07:16 ALT 29 U/L (9-52) 07/04/17 07:16 Alkaline Phosphatase 136 U/L (38-126) H D 07/04/17 07:16 Ammonia 21 umol/L (9-33) D 06/30/17 16:18 Troponin I < 0.0120 ng/mL (0.00-0.120) 06/29/17 12:56 Total Protein 5.9 g/dL (6.3-8.3) L 07/04/17 07:16 Albumin 2.8 g/dL (3.5-5.0) L 07/04/17 07:16 Globulin 3.1 gm/dL (2.2-3.9) 07/04/17 07:16 Albumin/Globulin Ratio 0.9 (1.0-2.1) L 07/04/17 07:16 Lipase 64 U/L (23-300) 06/29/17 12:56 Urine Color Sandra (YELLOW) 06/29/17 13:42 Urine Clarity Hazy (Clear) 06/29/17 13:42 Urine pH 6.0 (5.0-8.0) 06/29/17 13:42 Ur Specific [place] 1.013 (1.003-1.030) 06/29/17 13:42 Urine Protein Negative mg/dL (NEGATIVE) 06/29/17 13:42 Urine Glucose (UA) 1+ mg/dL (Normal) 06/29/17 13:42 Urine Ketones Negative mg/dL (NEGATIVE) 06/29/17 13:42 Urine Blood Negative (NEGATIVE) 06/29/17 13:42 Urine Nitrate Negative (NEGATIVE) 06/29/17 13:42 Urine Bilirubin Negative (NEGATIVE) 06/29/17 13:42 Urine Urobilinogen Normal mg/dL (0.2-1.0) 06/29/17 13:42 Ur Leukocyte Esterase Trace [place]/uL (Negative) 06/29/17 13:42 Urine WBC (Auto) 3 /hpf (0-5) 06/29/17 13:42 Urine RBC (Auto) < 1 /hpf (0-3) 06/29/17 13:42 Ur Squamous Epith Cells < 1 /hpf (0-5) 06/29/17 13:42 Hyaline Casts 6-10 /lpf (0-2) H 06/29/17 13:42 Serum Ketones Small (NEGATIVE) 07/08/17 19:56 C. difficile Ag & Toxin Negative (NEGATIVE) 07/13/17 18:05 - Hospital Course Hospital Course: A/P 77 yr old female admitted with lower extremity pain , weakness and diarrhea, pt found to have bilateral dvt on venous doppler. and s/p IVC filter stool c- dif + and treated with vanco, repeat c- dif negative seen by PT today and pateint walks with walker with steady gait D/W Dr. Hall, stable for discharge hometoday and f/u with Dr. Hall office in 1 week CM/SW arranged home PT and pt will receive home care services in am Discharge plan discussed with patient and daughter, who understands and agrees with plan Discharge Exam - Head Exam Head Exam: ATRAUMATIC, NORMAL INSPECTION, NORMOCEPHALIC Discharge Plan - Discharge Medications Prescriptions: ARIPiprazole [Abilify] 2.5 mg PO Q12H #30 tab Lactobacillus Acidophilus [Bacid Acidophilus] 1 cap PO BID #60 cap cloNIDine [Catapres] 0.1 mg PO BID #60 tab Folic Acid 1 mg PO DAILY #30 tab Insulin Detemir [Levemir] 10 unit SC HS #1 unit Famotidine [Pepcid] 20 mg PO DAILY #30 tab - Follow Up Plan Condition: FAIR Disposition: HOME/ ROUTINE Instructions: Insulin Detemir, Heart Healthy Diet, Deep Vein Thrombosis (Blood Clots in the Legs) (DC), Vena Cava Filter Placement, Aripiprazole, Clonidine, Famotidine, Folic Acid, Lactobacillus Additional Instructions: Please follow up with Dr. Hall office in 1 week Please follow up with Dr. Mosqueda office in 2 weeks continue medication as per med. rec. VNA service for home PT please pickler helper medication from [facility] - [place] Referrals: Adama Mosqueda MD [Staff Provider] - Westley Hall MD [Staff Provider] - 07/23/17 2:30 pm (Appointment made for you , spoke with Selene.)
== END 2017-07-16 16:04 | disposition home or self-care (01) | DRG 253 ==
LOC: C.ER 11:25 → C.9E 16:24 → C.6T 17:44
PROVIDERS: ADMIT Internal Medicine; ATTEND Internal Medicine
PROC: 06H03DZ Insertion of Intraluminal Device into Inferior Vena Cava, Percutaneous Approach (ICD-10-PCS; principal; 2017-07-01 14:30)
DX: I82.431 Acute embolism and thrombosis of right popliteal vein (principal); Z94.4 Liver transplant status; E87.6 Hypokalemia; I82.403 Acute embolism and thrombosis of unspecified deep veins of lower extremity, bilateral; E87.5 Hyperkalemia; E86.0 Dehydration; E11.9 Type 2 diabetes mellitus without complications; F22 Delusional disorders; F41.9 Anxiety disorder, unspecified; I10 Essential (primary) hypertension; I25.10 Atherosclerotic heart disease of native coronary artery without angina pectoris; F31.9 Bipolar disorder, unspecified; H54.61 Unqualified visual loss, right eye, normal vision left eye; K21.9 Gastro-esophageal reflux disease without esophagitis; M17.12 Unilateral primary osteoarthritis, left knee; Z79.4 Long term (current) use of insulin; R79.1 Abnormal coagulation profile; Z87.01 Personal history of pneumonia (recurrent); Z68.20 Body mass index [BMI] 20.0-20.9, adult

== ENCOUNTER 2017-08-12 16:43 | Emergency (ER) | payer MEDICARE, MEDICAID ==
[2017-08-12 16:43] VITALS: BMI 21.2
--- NOTE | 2017-08-12 17:49 | CT ---
PROCEDURE: CT HEAD WITHOUT CONTRAST. HISTORY: Fell an hit head last night COMPARISON: Unenhanced head CT 06/30/2017. TECHNIQUE: Axial computed tomography images were obtained through the head/brain without intravenous contrast. Radiation dose: Total exam DLP = 786.14 mGy-cm. This CT exam was performed using one or more of the following dose reduction techniques: Automated exposure control, adjustment of the mA and/or kV according to patient size, and/or use of iterative reconstruction technique. FINDINGS: HEMORRHAGE: No intracranial hemorrhage. BRAIN: Good corticomedullary differentiation is seen. Diffuse expansion of the ventriculosulcal and cisternal spaces is appreciated with white matter lucency compatible with diffuse cerebral atrophy and chronic microangiopathy. No suspicious extra-axial fluid collection is identified and the midline brain anatomy appears grossly nonfocal as imaged. There is no mass effect throughout. VENTRICLES: Unremarkable. No hydrocephalus. CALVARIUM: No destructive bony lesion or displaced fracture identified including through the skullbase. PARANASAL SINUSES: Unremarkable as visualized. No significant inflammatory changes. MASTOID AIR CELLS: Unremarkable as visualized. No inflammatory changes. OTHER FINDINGS: None. IMPRESSION: Age-appropriate age related neuro degenerative changes are appreciate without acute intracranial findings or displaced fracture evident. Follow-up CT or MRI are available if clinically warranted.
--- NOTE | 2017-08-12 18:24 | C.PDOC ---
History Of Present Illness Pt slipped in her bathroom last night. Denies LOC. States she hit her head. C/o neck/back pain. - HPI Time Seen by Provider: 08/12/17 17:08 Chief Complaint (Nursing): Trauma History Per: Patient Injury Occurred (Timing): Hours Ago: (last night) Location Of Injury: Posterior: Head Severity: Moderate Additional History Per: Prior Records - Fall Fall:Prior To Injury: Slipped Past Medical History Reviewed: Historical Data, Nursing Documentation, Vital Signs Vital Signs: Last Vital Signs Temp 98.1 F 08/12/17 16:55 Pulse 83 08/12/17 16:55 Resp 20 08/12/17 16:55 BP 189/76 H 08/12/17 16:55 Pulse Ox 98 08/12/17 16:55 - Medical History PMH: Anxiety, Arthritis (L KNEE; BACK), Bipolar Disorder, Bronchitis, CAD, Depression, Diabetes, Fractures (L leg), Gastritis, HTN, Peripheral Edema, Pneumonia, Pneumothorax (effusion) Comment Only: COPD (DENIES) Surgical History: (x 2) - [facility] Procedures (06/13/17) CLOSED ENDOSCOPIC BIOPSY OF LARGE INTESTINE (08/31/13) DRAINAGE OF RIGHT LOWER LOBE BRONCHUS, ENDO, DIAGN (08/03/15) DRAINAGE OF RIGHT MIDDLE LOBE BRONCHUS, ENDO, DIAGN (08/03/15) DRAINAGE OF SPINAL CANAL, PERCUTANEOUS APPROACH, DIAGNOSTIC (08/03/15) ESOPHAGOGASTRODUODENOSCOPY [EGD] W/CLOSED BIOPSY (08/31/13) EXCISION OF STOMACH, ENDO, DIAGN (06/13/17) GROUP PSYCHOTHERAPY (05/02/17) INDIVIDUAL PSYCHOTHERAPY, SUPPORTIVE (05/02/17) INSERT INTERCOSTAL CATH (03/15/14) INSERTION OF ENDOTRACHEAL AIRWAY INTO TRACHEA, VIA OPENING (08/03/15) INSERTION OF INFUSION DEV INTO SUP VENA CAVA, PERC APPROACH (08/03/15) INSERTION OF INTRALUM DEV INTO INF VENA CAVA, PERC APPROACH (06/29/17) INTRODUCTION OF SERUM/TOX/VACCINE INTO MUSCLE, PERC APPROACH (04/20/17) OTHER PLEURAL INCISION (03/15/14) REMOVAL OF FB NOS (05/25/13) RESPIRATORY VENTILATION, GREATER THAN 96 CONSECUTIVE HOURS (08/03/15) TRANSFUSE NONAUT PLATELETS IN PERIPH VEIN, PERC (08/03/15) Family History: States: Unknown Family Hx - Social History Hx Tobacco Use: No Hx Alcohol Use: No Hx Substance Use: No - Immunization History Hx Tetanus Toxoid Vaccination: Yes Hx Influenza Vaccination: Yes Hx Pneumococcal Vaccination: Yes Review Of Systems Except As Marked, All Systems Reviewed And Found Negative. Constitutional: Negative for: Fever, Weakness Cardiovascular: Negative for: Chest Pain Respiratory: Negative for: Shortness of Breath Gastrointestinal: Negative for: Vomiting, Abdominal Pain Musculoskeletal: Positive for: Neck Pain, Back Pain Neurological: Negative for: Weakness, Numbness, Seizures, Altered Mental Status Physical Exam - Physical Exam Appears: Non-toxic, No Acute Distress Skin: Normal Color, Warm, Dry Head: Atraumatic, Normacephalic Eye(s): bilateral: Abnormal Pupil (chronic) Neck: Normal ROM, Paracervical Tenderness, No Step Off Deformity, Supple Chest: Symmetrical, No Deformity Cardiovascular: Rhythm Regular Respiratory: Normal Breath Sounds, No Accessory Muscle Use Gastrointestinal/Abdominal: Soft, No Tenderness Back: Paraspinal Tenderness Extremity: Normal ROM, No Deformity Extremity: Bilateral: Hips Non-Tender, Pelvis-Stable Neurological/Psych: Oriented x3, Normal Motor, Normal Sensation ED Course And Treatment O2 Sat by Pulse Oximetry: 98 Pulse Ox Interpretation: Normal - Other Rad C-spine x-rays X-Ray: Interpreted by Me, Viewed By Me Interpretation: No acute fx or subluxation LS spine x-rays X-Ray: Interpreted by Me, Viewed By Me Interpretation: No acute fx or subluxation - CT Scan/US CT head Other Rad Studies (CT/US): Read By Radiologist, Radiology Report Reviewed CT/US Interpretation: IMPRESSION: Age-appropriate age related neuro degenerative changes are appreciate without acute intracranial findings or displaced fracture evident. Follow-up CT or MRI are available if clinically warranted. Reassessment Condition: Improved Disposition Counseled Patient/Family Regarding: Studies Performed, Diagnosis, Need For Followup, Rx Given - Disposition Referrals: Westley Hall MD [Staff Provider] - Disposition: HOME/ ROUTINE Disposition Time: 18:27 Condition: IMPROVED Additional Instructions: Follow up with your doctor. Return to the ER if you develop weakness, numbness, vomiting, worsening of symptoms or if you have any other concerns. Prescriptions: Acetaminophen [Tylenol] 2 tab PO Q6 PRN #30 capsule PRN Reason: Pain, Moderate (4-7) Instructions: Preventing Falls in the Older Adult, Minor Head Injury (DC) - Clinical Impression Clinical Impression: Fall from slip, trip, or stumble, Minor closed head injury
[2017-08-12 18:54] VITALS: BP 172/68; PULSE 86; RESP 18; TEMP 98.2; O2SAT 99
--- NOTE | 2017-08-12 19:12 | RAD ---
PROCEDURE: Radiographs of the Lumbar Spine. HISTORY: Fell last night. Back pain COMPARISON: No prior. FINDINGS: BONES: Normal curvature. No fracture or spondylolisthesis. Multilevel spondylosis appears [id number] severity. No destructive bony lesion evident. Diffuse osteopenia suggests osteoporosis. Incidental note is made of intervening and filter placement as well as multiple surgical clips at the right upper quadrant abdomen medially. DISC SPACES: As above. OTHER FINDINGS: None. IMPRESSION: Multilevel lumbar spondylosis [id number] severity. No fracture or spondylolisthesis.
--- NOTE | 2017-08-12 19:12 | RAD ---
PROCEDURE: Cervical Spine Radiographs. HISTORY: Pain. COMPARISON: None. FINDINGS: BONES: Normal cervical curvature is interrupted by a minimal grade 1 spondylolisthesis with C5 slightly anterior to C4. Multilevel facet arthropathy is identified. No destructive bony lesion grossly evident. Diffuse osteopenia suggests osteoporosis. Prevertebral soft tissues appear unremarkable. The odontoid process appears intact. DISC SPACES: Normal. SOFT TISSUES: Normal. No prevertebral soft tissue swelling. OTHER FINDINGS: None. IMPRESSION: Limited grade 1 spondylolisthesis C4-5, degenerative. Multilevel degenerative facet arthropathy.
== END 2017-08-12 18:54 | disposition home or self-care (01) ==
LOC: C.ER 16:43
DX: S09.90XA Unspecified injury of head, initial encounter (principal); W01.0XXA Fall on same level from slipping, tripping and stumbling without subsequent striking against object, initial encounter; E11.9 Type 2 diabetes mellitus without complications; I10 Essential (primary) hypertension; I25.10 Atherosclerotic heart disease of native coronary artery without angina pectoris

== ENCOUNTER 2017-10-17 12:18 | Inpatient (IN) | payer MEDICARE, MEDICAID ==
[2017-10-17 12:19] VITALS: BMI 21.2
--- NOTE | 2017-10-17 12:53 | C.PDOC ---
History Of Present Illness Patient is a 77 year old female patient with hx of DM, blood clot, sepsis and PSHx of liver transplant presents to the ER with c/o feeling dizzy and lethargic and SOB for 2 days. Associated symptoms includes SOB and discomfort to the lower extremities bilaterally. Patient denies chest pain, leg pain, cough , and fever. Patient notes she is concerned that she might have another blood clot in her lower extremity because she had similar symptoms in past. Although she does not have leg pain, she states that she has a strange sensation in both her legs ("my legs don't feel normal"). PCP: Dr. Hall / Time Seen by Provider: 10/17/17 12:42 Chief Complaint (Nursing): Dizziness/Lightheaded History Per: Patient History/Exam Limitations: no limitations Onset/Duration Of Symptoms: Days (x2) Current Symptoms Are (Timing): Still Present Past Medical History Reviewed: Historical Data, Nursing Documentation, Vital Signs Vital Signs: Last Vital Signs Temp 97.8 F 10/19/17 07:00 Pulse 71 10/19/17 11:42 Resp 20 10/19/17 07:00 BP 149/79 10/19/17 07:00 Pulse Ox 97 10/19/17 07:00 - Medical History PMH: Anxiety, Arthritis (L KNEE; BACK), Bipolar Disorder, Bronchitis, CAD, Depression, Diabetes, Fractures (L leg), Gastritis, HTN, Peripheral Edema, Pneumonia, Pneumothorax Comment Only: COPD (DENIES) Surgical History: (x 2) Other Surgeries: surgical thrombectomy; liver transplant - [facility] Procedures (06/13/17) CLOSED ENDOSCOPIC BIOPSY OF LARGE INTESTINE (08/31/13) DRAINAGE OF RIGHT LOWER LOBE BRONCHUS, ENDO, DIAGN (08/03/15) DRAINAGE OF RIGHT MIDDLE LOBE BRONCHUS, ENDO, DIAGN (08/03/15) DRAINAGE OF SPINAL CANAL, PERCUTANEOUS APPROACH, DIAGNOSTIC (08/03/15) ESOPHAGOGASTRODUODENOSCOPY [EGD] W/CLOSED BIOPSY (08/31/13) EXCISION OF STOMACH, ENDO, DIAGN (06/13/17) GROUP PSYCHOTHERAPY (05/02/17) INDIVIDUAL PSYCHOTHERAPY, SUPPORTIVE (05/02/17) INSERT INTERCOSTAL CATH (03/15/14) INSERTION OF ENDOTRACHEAL AIRWAY INTO TRACHEA, VIA OPENING (08/03/15) INSERTION OF INFUSION DEV INTO SUP VENA CAVA, PERC APPROACH (08/03/15) INSERTION OF INTRALUM DEV INTO INF VENA CAVA, PERC APPROACH (06/29/17) INTRODUCTION OF SERUM/TOX/VACCINE INTO MUSCLE, PERC APPROACH (04/20/17) OTHER PLEURAL INCISION (03/15/14) REMOVAL OF FB NOS (05/25/13) RESPIRATORY VENTILATION, GREATER THAN 96 CONSECUTIVE HOURS (08/03/15) TRANSFUSE NONAUT PLATELETS IN PERIPH VEIN, PERC (08/03/15) Family History: States: Diabetes - Social History Hx Tobacco Use: No Hx Alcohol Use: No Hx Substance Use: No - Immunization History Hx Tetanus Toxoid Vaccination: Yes Hx Influenza Vaccination: No Hx Pneumococcal Vaccination: Yes Review Of Systems Except As Marked, All Systems Reviewed And Found Negative. Constitutional: Positive for: Other (lethargic). Negative for: Fever Cardiovascular: Negative for: Chest Pain Respiratory: Positive for: Shortness of Breath Musculoskeletal: Negative for: Leg Pain Neurological: Positive for: Dizziness Physical Exam - Physical Exam Appears: Well, Non-toxic, No Acute Distress Skin: Normal Color, Warm, Dry Head: Atraumatic, Normacephalic Eye(s): bilateral: Normal Inspection, EOMI Ear(s): Bilateral: Normal Nose: Normal Oral Mucosa: Moist Tongue: Normal Appearing Lips: Normal Appearing Throat: Normal Neck: Normal ROM, Supple Lymphatic: Deferred Chest: Symmetrical, No Deformity Cardiovascular: Rhythm Regular Respiratory: Decreased Breath Sounds (to the right lung base), No Rales, No Rhonchi, No Wheezing Gastrointestinal/Abdominal: Soft, No Tenderness, No Guarding, No Rebound Rectal: Deferred Back: No CVA Tenderness Extremity: No Pedal Edema, No Calf Tenderness, Capillary Refill (<2 sec) Extremity: Bilateral: Atraumatic, Normal ROM Pulses: Left Dorsalis Pedis: Normal, Right Dorsalis Pedis: Normal Neurological/Psych: Oriented x3, Normal Speech, Normal Motor, Normal Sensation, Normal Reflexes, Other (nonfocal) ED Course And Treatment - Laboratory Results Result Diagrams: 10/18/17 13:50 10/17/17 13:20 O2 Sat by Pulse Oximetry: 97 (RA) Pulse Ox Interpretation: Normal Medical Decision Making Medical Decision Making: Initial impression: dizziness and SOB w/ hx of DVT. Differential diagnosis includes but is not limited to: PE, pneumonia (less likely-no cough), DVT Initial Plan: -- blood work -- CXR -- EKG -- UA -- CT if D-dimer positive -- Duplex Doppler Progress notes: 2:24PM - D-dimer is positive. CT ordered. Pt at CT now. 4:44 PM - Duplex doppler shows left common femoral and left popliteal DVT acute. Dr. Hall recommends IV heparin and admit to his service. IV line did blow. So PICC line placed. Still awaiting CT to rule out PE. Dr. Hall will follow up the CT scan result. Disposition - Disposition Disposition: HOSPITALIZED Disposition Time: 16:45 Condition: SERIOUS - Clinical Impression Clinical Impression: Deep venous thrombosis, Left femoral vein DVT - Scribe Statement The provider has reviewed the documentation as recorded by the Jose Phillips Do Provider Attestation: All medical record entries made by the Davidibester were at my direction and personally dictated by me. I have reviewed the chart and agree that the record accurately reflects my personal performance of the history, physical exam, medical decision making, and the department course for this patient. I have also personally directed, reviewed, and agree with the discharge instructions and disposition. Decision To Admit - Pt Status Changed To: Hospital Disposition Of: Inpatient - Admit Certification Admit to Inpatient:: After my assessment, the patient will require hospitalization for at least two midnights. This is because of the severity of symptoms shown, intensity of services needed, and/or the medical risk in this patient being treated as an outpatient. - InPatient: Physician Admission Certification: I certify that this patient requires 2 or more midnights of care for the following reason:: Patient with acute DVT and possible pulmonary embolism. Will need IV anti-coagulation - . Bed Request Type: Telemetry Admitting Physician: Westley Hall Patient Diagnosis: Deep venous thrombosis, Left femoral vein DVT
[2017-10-17 13:22] LABS: BASO % 0.8 % (0.0-2.0); EOS # 0.1 K/uL (0.0-0.7); HEMOGLOBIN 10.4 g/dL (11.0-16.0); LYMPH # 0.7 K/uL (1.0-4.3); LYMPH % 18.1 % (20.0-40.0); MEAN CELL VOLUME 82.4 fL (81.0-99.0); MEAN CORPUSCULAR HEMOGLOBIN 27.3 pg (27.0-31.0); MEAN CORPUSCULAR HGB CONC 33.2 g/dL (33.0-37.0); MEAN PLATELET VOLUME 8.5 fL (7.2-11.7); MONO # 0.3 K/uL (0.0-0.8); MONO % 8.5 % (0.0-10.0); NEUT # 2.6 K/uL (1.8-7.0); NEUT % 69.6 % (50.0-75.0); NRBC % 0.1 % (0.0-2.0); RBC 3.79 Mil/uL (3.80-5.20); RED CELL DISTRIBUTION WIDTH 15.8 % (11.5-14.5)
[2017-10-17 13:32] LABS: WHITE BLOOD COUNT 3.7 K/uL (4.8-10.8)
[2017-10-17 13:39] LABS: INR 1.1
[2017-10-17 13:48] LABS: ALB/GLOB RATIO 1.1 (1.0-2.1); ALBUMIN 3.6 g/dL (3.5-5.0); ALT/SGPT 59 U/L (9-52); AST/SGOT 71 U/L (14-36); BLOOD UREA NITROGEN 20 mg/dL (7-17); CALCIUM 9.5 mg/dl (8.6-10.4); GFR AFRICAN-AMERICAN 53; GFR NON-AFRICAN AMERICAN 44
[2017-10-17 13:59] LABS: B-TYPE NATRIURETIC PEPTIDE 2390 pg/mL (0-900)
[2017-10-17] MEDS ORDERED: Iodixanol 320 MG/ML 100 ML BOTTLE IV ONE (14:38)
--- NOTE | 2017-10-17 15:23 | RAD ---
Date of service: 10/17/2017 PROCEDURE: CHEST RADIOGRAPH, 1 VIEW HISTORY: chest pain COMPARISON: Comparison is made with 06/29/2017 FINDINGS: LUNGS: No significant interval change in the lungs noted since the previous exam PLEURA: No pneumothorax or pleural fluid seen. CARDIOVASCULAR: Normal. OSSEOUS STRUCTURES: No significant abnormalities. VISUALIZED UPPER ABDOMEN: Normal. OTHER FINDINGS: None. IMPRESSION: No active disease.
[2017-10-17 16:24] LABS: SQUAMOUS EPITHIAL < 1 /hpf (0-5); URINE BILIRUBIN NEGATIVE (NEGATIVE); URINE BLOOD NEGATIVE (NEGATIVE); URINE CLARITY Hazy (Clear); URINE COLOR Yellow (YELLOW); URINE GLUCOSE (UA) NORMAL (Normal); URINE LEUKOCYTE ESTERASE TRACE Leu/uL (Negative); URINE PROTEIN NEGATIVE (NEGATIVE); URINE UROBILINOGEN NORMAL mg/dL (0.2-1.0)
[2017-10-17] MEDS ORDERED: Heparin25000 units/250ml 1/2NS 25,000 UNITS/250 ML BAG IV ONE (17:00)
--- NOTE | 2017-10-17 17:23 | CT ---
Date of service: 10/17/2017 PROCEDURE: CT Chest with contrast (Pulmonary Angiogram) HISTORY: SOB; elevated d-dimer;hx of DVT; r/o pulm embolism COMPARISON: Comparison is made to the previous study dated 06/29/2017 TECHNIQUE: Axial computed tomography images were obtained of the chest in the pulmonary arterial phase of enhancement. Coronal and sagittal reformatted images were created and reviewed. Intravenous contrast dose: 100 mL Visipaque 320 Radiation dose: Total exam DLP = 181.4 mGy-cm. This CT exam was performed using one or more of the following dose reduction techniques: Automated exposure control, adjustment of the mA and/or kV according to patient size, and/or use of iterative reconstruction technique. FINDINGS: PULMONARY ARTERIES: Unremarkable. No pulmonary embolism. AORTA: No acute findings. No thoracic aortic aneurysm. The thoracic aorta is ectatic and tortuous. There is common origin of the right brachiocephalic and left common carotid arteries LUNGS: Again seen is a linear opacity at the left lower lung. Again noted is 6 millimeter nodule at the right lower lung. Mosaic appearance of the lungs is again noted. There are linear opacities at the left lower lobe represent scar tissue or atelectasis. PLEURAL SPACES: Unremarkable. No effusion or pneumothorax. HEART: The heart is mildly enlarged. No evidence of pericardial effusion. LYMPH NODES: No lymphadenopathy. BONES, CHEST WALL: Unremarkable. No fracture or destructive lesion OTHER FINDINGS: Mild diffuse esophageal mucosal thickening is noted. The scan through the upper abdomen demonstrate pneumobilia. IMPRESSION: No evidence of pulmonary embolus. No significant interval change in the lungs noted since the previous exam. Pneumobilia noted in the liver which is new compared to the previous exam.
[2017-10-18] MEDS ORDERED: (Novolin R) Insulin Human Regular 100 units/ml vial SC ONE (00:45)
[2017-10-18 01:38] LABS: INR 1.2; PROTHROMBIN TIME 12.9 SECONDS (9.7-12.2)
[2017-10-18] MEDS ORDERED: Heparin25000 units/250ml 1/2NS 25,000 UNITS/250 ML BAG IV PRN ×2 (06:45→07:45)
[2017-10-18] MEDS ORDERED: Heparin25000 units/250ml 1/2NS 25,000 UNITS/250 ML BAG IV ONE ×2 (07:17→07:45)
[2017-10-18] MEDS: (Novolin R) Insulin Human Regular 100 units/ml vial SC SCH ×4 (07:58→21:09)
[2017-10-18 13:54] LABS: BASO % 0.6 % (0.0-2.0); EOS # 0.1 K/uL (0.0-0.7); EOS % 3.3 % (0.0-4.0); HEMOGLOBIN 10.3 g/dL (11.0-16.0); LYMPH # 0.6 K/uL (1.0-4.3); LYMPH % 24.4 % (20.0-40.0); MEAN CORPUSCULAR HEMOGLOBIN 27.3 pg (27.0-31.0); MEAN CORPUSCULAR HGB CONC 32.5 g/dL (33.0-37.0); MEAN PLATELET VOLUME 8.8 fL (7.2-11.7); MONO # 0.2 K/uL (0.0-0.8); MONO % 5.9 % (0.0-10.0); NEUT # 1.7 K/uL (1.8-7.0); NEUT % 65.8 % (50.0-75.0); NRBC % 0.1 % (0.0-2.0); RBC 3.76 Mil/uL (3.80-5.20); RED CELL DISTRIBUTION WIDTH 15.9 % (11.5-14.5); WHITE BLOOD COUNT 2.6 K/uL (4.8-10.8)
[2017-10-18] MEDS ORDERED: Sodium Chloride 0.9% 1,000 ML IV SCH (14:00)
[2017-10-18] MEDS ORDERED: (Novolin R) Insulin Human Regular 100 units/ml vial SC SCH (16:30)
[2017-10-18] MEDS: (Novolin N) Insulin Human Isophane (NPH) 100 u/ml 10 ml vial SC SCH (21:09)
[2017-10-18] MEDS ORDERED: Insulin Detemir 100 units/ml Vial (Levemir) SC SCH (22:00)
--- NOTE | 2017-10-18 23:23 | CP.PCM.HP ---
History of Present Illness - History of Present Illness History of Present Illness: CC: weakness and dizziness x 2 day Patient is a 77 year old female patient with hx of DM, blood clot, sepsis , psycosis, chronic hep C virus infection, and PSHx of liver transplant presents to the ER with c/o feeling dizzy and lethargic and SOB for 2 days. Associated symptoms includes SOB and discomfort to the lower extremities bilaterally. Patient denies chest pain, leg pain, cough, and fever. Patient notes she is concerned that she might have another blood clot in her lower extremity because she had similar symptoms in past. Although she does not have leg pain, she states that she has a strange sensation in both her legs ("my legs don't feel normal"). pt denies any sharp leg pain, she has numbness and tingling in legs b/ l Present on Admission - Present on Admission Any Indicators Present on Admission: Yes Review of Systems - Review of Systems Systems not reviewed;Unavailable: Acuity of Condition - Constitutional Constitutional: Fatigue, Lethargy, Malaise, Weakness - EENT Eyes: absent: As Per HPI, Blind Spots, Blurred Vision, Change in Vision, Decreased Night Vision, Diplopia, Discharge, Dry Eye, Exophthalmos, Floaters, Irritation, Itchy Eyes, Loss of Peripheral Vision, Pain, Photophobia, Requires Corrective Lenses, Sees Flashes, Spots in Vision, Tunnel Vision, Other Visual Disturbances, Loss of Vision, Other Ears: absent: As Per HPI, Decreased Hearing, Ear Discharge, Ear Pain, Tinnitus, Abnormal Hearing, Disequilibrium, Dizziness, Other Nose/Mouth/Throat: absent: As Per HPI, Epistaxis, Nasal Congestion, Nasal Discharge, Nasal Obstruction, Nasal Trauma, Nose Pain, Post Nasal Drip, Sinus Pain, Sinus Pressure, Bleeding Gums, Change in Voice, Dental Pain, Dry Mouth, Dysphagia, Halitosis, Hoarsness, Lip Swelling, Mouth Lesions, Mouth Pain, Odynophagia, Sore Throat, Throat Swelling, Tongue Swelling, Facial Pain, Neck Pain, Neck Mass, Other - Cardiovascular Cardiovascular: Dyspnea, Lightheadedness - Respiratory Respiratory: absent: As Per HPI, Cough, Dyspnea, Hemoptysis, Dyspnea on Exertion , Wheezing, Snoring, Stridor, Pain on Inspiration, Chest Congestion, Excessive Mucous Production, Change in Mucous Color, Pain with Coughing, Other - Gastrointestinal Gastrointestinal: absent: As Per HPI, Abdominal Pain, Belching, Bloating, Change in Bowel Habits, Change in Stool Character, Coffee Ground Emesis, Constipation, Cramping, Diarrhea, Dyspepsia, Dysphagia, Early Satiety, Excessive Flatus, Fecal Incontinence, Heartburn, Hematemesis, Hematochezia, Loose Stools, Melena, Nausea, Odynophagia, Temesmus, Vomiting, Other - Musculoskeletal Musculoskeletal: Arthralgias, Back Pain, Muscle Weakness, Myalgias, Numbness, Tingling - Integumentary Integumentary: absent: As Per HPI, Acne, Alopecia, Bleeding Lesions, Change in Hair, Change in Nails, Change in Pigmentation, Changing Lesions, Dry Skin, Erythema, Furuncle, Hirsutism, Lesions, New Lesions, Non-Healing Lesions, Photosensitivity, Pruritus, Rash, Skin Pain, Skin Ulcer, Sores, Striae, Swelling , Unusual Bruising, Wounds, Jaundice, Other - Psychiatric Psychiatric: Abnormal Sleep Pattern, Anxiety Past Patient History - Infectious Disease Hx of Infectious Diseases: None - Past Medical History & Family History Past Medical History?: Yes - Past Social History Smoking Status: Never Smoked - CARDIAC Hx Hypertension: Yes Hx Peripheral Edema: Yes - PULMONARY Hx Bronchitis: Yes Hx Chronic Obstructive Pulmonary Disease (COPD): (DENIES) Hx Pneumonia: Yes - NEUROLOGICAL Hx Neurological Disorder: No - HEENT Hx HEENT Problems: No Hx Blind: Yes (Right eye blind) - RENAL Hx Chronic Kidney Disease: No - ENDOCRINE/METABOLIC Hx Hyperthyroidism: No Hx Hypothyroidism: No - HEMATOLOGICAL/ONCOLOGICAL Hx Anemia: No Hx Human Immunodeficiency Virus (HIV): No Hx Sickle Cell Disease: No - INTEGUMENTARY Hx Dermatological Problems: No - MUSCULOSKELETAL/RHEUMATOLOGICAL Hx Arthritis: Yes Hx Falls: Yes - GASTROINTESTINAL Hx Gastritis: Yes - GENITOURINARY/GYNECOLOGICAL Hx Sexually Transmitted Disorders: No - PSYCHIATRIC Hx Anxiety: Yes Hx Depression: Yes Hx Substance Use: No - SURGICAL HISTORY Hx Appendectomy: No Hx Carotid Endarterectomy: No Hx Section: Yes (x 3) Hx Cholecystectomy: No Hx Coronary Artery Bypass Graft: No Hx Coronary Stent: No Hx Liver Transplant: Yes (1999) Hx Tonsillectomy: No Other/Comment: IVC filter placement July 01, 2017 - ANESTHESIA Hx Anesthesia: Yes Hx Anesthesia Reactions: No Hx Malignant Hyperthermia: No Meds Allergies/Adverse Reactions: Allergies Allergy/AdvReac Type Severity Reaction Status Date / Time No Known Allergies Allergy Verified 08/12/17 16:58 Physical Exam - Constitutional Appears: No Acute Distress - Head Exam Head Exam: ATRAUMATIC, NORMAL INSPECTION, NORMOCEPHALIC - Eye Exam Eye Exam: EOMI, Normal appearance, PERRL Pupil Exam: NORMAL ACCOMODATION, PERRL - ENT Exam ENT Exam: Mucous Membranes Moist, Normal Exam - Respiratory Exam Respiratory Exam: Clear to Auscultation Bilateral, NORMAL BREATHING PATTERN - Cardiovascular Exam Cardiovascular Exam: REGULAR RHYTHM - GI/Abdominal Exam GI & Abdominal Exam: Normal Bowel Sounds, Soft. absent: Tenderness - Neurological Exam Neurological exam: Alert, CN II-XII Intact, Normal Gait, Oriented x3, Reflexes Normal - Psychiatric Exam Psychiatric exam: Anxious Results - Vital Signs Recent Vital Signs: Last Vital Signs Temp 98.1 F 10/18/17 15:42 Pulse 64 10/18/17 16:10 Resp 20 10/18/17 15:42 BP 146/75 10/18/17 15:42 Pulse Ox 98 10/18/17 15:42 - Labs Result Diagrams: 10/18/17 13:50 10/17/17 13:20 Labs: Laboratory Results - last 24 hr 10/18/17 10/18/17 10/18/17 00:40 00:46 00:46 WBC RBC Hgb Hct MCV MCH MCHC RDW Plt Count MPV Neut % (Auto) Lymph % (Auto) Young % (Auto) Eos % (Auto) Baso % (Auto) Neut # (Auto) Lymph # (Auto) Young # (Auto) Eos # (Auto) Baso # (Auto) Differential Comment PT 12.9 H INR 1.2 APTT 203 H* D POC Glucose (mg/dL) 389 H 10/18/17 10/18/17 10/18/17 04:28 06:39 12:25 WBC RBC Hgb Hct MCV MCH MCHC RDW Plt Count MPV Neut % (Auto) Lymph % (Auto) Young % (Auto) Eos % (Auto) Baso % (Auto) Neut # (Auto) Lymph # (Auto) Young # (Auto) Eos # (Auto) Baso # (Auto) Differential Comment PT INR APTT 47 H D POC Glucose (mg/dL) 181 H 493 H* 07/10/18/17 10/18/17 12:27 13:50 13:50 WBC 2.6 L RBC 3.76 L Hgb 10.3 L Hct 31.6 L MCV 84.0 MCH 27.3 MCHC 32.5 L RDW 15.9 H Plt Count 84 L D MPV 8.8 Neut % (Auto) 65.8 Lymph % (Auto) 24.4 Young % (Auto) 5.9 Eos % (Auto) 3.3 Baso % (Auto) 0.6 Neut # (Auto) 1.7 L Lymph # (Auto) 0.6 L Young # (Auto) 0.2 Eos # (Auto) 0.1 Baso # (Auto) 0.0 Differential Comment PT INR APTT 62 H D POC Glucose (mg/dL) > 500 H* 10/18/17 10/18/17 10/18/17 16:34 21:02 21:03 WBC RBC Hgb Hct MCV MCH MCHC RDW Plt Count MPV Neut % (Auto) Lymph % (Auto) Young % (Auto) Eos % (Auto) Baso % (Auto) Neut # (Auto) Lymph # (Auto) Young # (Auto) Eos # (Auto) Baso # (Auto) Differential Comment PT INR APTT POC Glucose (mg/dL) 281 H 61 L 60 L 10/18/17 21:32 WBC RBC Hgb Hct MCV MCH MCHC RDW Plt Count MPV Neut % (Auto) Lymph % (Auto) Young % (Auto) Eos % (Auto) Baso % (Auto) Neut # (Auto) Lymph # (Auto) Young # (Auto) Eos # (Auto) Baso # (Auto) Differential Comment PT INR APTT POC Glucose (mg/dL) 112 H Assessment & Plan (1) Deep venous thrombosis Status: Acute (2) Anxiety Status: Acute (3) Anxiety and depression Status: Chronic Priority: Low (4) Diabetes mellitus Status: Chronic - Assessment and Plan (Free Text) Plan: Pulmonary Emboli was ruled out
[2017-10-19] MEDS: (Novolin R) Insulin Human Regular 100 units/ml vial SC SCH ×8 (02:30→21:30)
[2017-10-19 08:19] LABS: INR 1.1; PROTHROMBIN TIME 12.2 SECONDS (9.7-12.2)
--- NOTE | 2017-10-19 08:19 | VASCLAB ---
Date of service: 10/17/2017 PROCEDURE: Lower Extremity Venous Duplex Exam. HISTORY: Hx of DVT; c/o SOB strange leg sensation B/L PRIORS: None. TECHNIQUE: Bilateral common femoral, femoral, popliteal and posterior tibial, peroneal and great saphenous veins were evaluated. Flow was assessed with color Doppler, compressibility, assessment of phasic flow and augmentation response. Report prepared by Dann Castillo, RVT FINDINGS: RIGHT: 1. Common Femoral Vein: 1.1. Compressibility - Fully compressible: Thrombus - None : Flow - Phasic: Augmentation -Normal: Reflux - . 2. Femoral Vein: 2.1. Compressibility - Fully compressible: Thrombus - None : Flow - Phasic: Augmentation -Normal: Reflux - . 3. Popliteal Vein: 3.1. Compressibility - Fully compressible: Thrombus - None : Flow - Phasic: Augmentation -Normal: Reflux - . 4. Posterior Tibial Vein: 4.1. Compressibility - Fully compressible: Thrombus - None: Flow - : Augmentation -: Reflux - . 5. Peroneal Vein: 5.1. Compressibility - Fully compressible: Thrombus - None: Flow - : Augmentation -: Reflux - . 6. Great Saphenous Vein: 6.1. Compressibility - Fully compressible: Thrombus - None: Flow - Reduced : Augmentation - : Reflux - . LEFT: 1. Common Femoral Vein: 1.1. Compressibility - Partial: Thrombus - Acute: Flow - Reduced : Augmentation -Reduced: Reflux - . 2. Femoral Vein: 2.1. Compressibility - Partial: Thrombus - Chronic: Flow - Reduced : Augmentation -Reduced: Reflux - . 3. Popliteal Vein: 3.1. Compressibility - Partial: Thrombus - Chronic : Flow - Reduced : Augmentation -Reduced: Reflux - . 4. Posterior Tibial Vein: 4.1. Compressibility - Fully compressible: Thrombus - None: Flow - : Augmentation -: Reflux - . 5. Peroneal Vein: 5.1. Compressibility - Fully compressible: Thrombus - None: Flow - : Augmentation -: Reflux - . 6. Great Saphenous Vein: 6.1. Compressibility - Fully compressible: Thrombus - None: Flow - Phasic: Augmentation - : Reflux - . OTHER FINDINGS: Right: The sapheno-femoral junction was partially occluded with echogenic THROMBUS and revealed decreased venous return. Left: The common femoral was partially occluded with echolucent THROMBUS and revealed decreased venous return, thereafter one of the femoral and the popliteal vein were partially occluded with echogenic THROMBUS and also showed reduced venous flow. IMPRESSION: Right: No evidence of deep vein thrombosis, however there was CHRONIC superficial venous thrombosis of the right lower extremity. Left: There was acute and chronic DEEP VENOUS THROMBOSIS. There was No evidence of superficial vein thrombosis of the left lower extremity.
[2017-10-19] MEDS: (Novolin N) Insulin Human Isophane (NPH) 100 u/ml 10 ml vial SC SCH (10:13)
[2017-10-19] MEDS ORDERED: Glucagon Recombinant 1 mg Inj IM PRN (16:06)
[2017-10-19] MEDS ORDERED: Dextrose 50% SYRINGE Inj (50 ml) ONE (16:13)
[2017-10-19] MEDS: Dextrose 50% SYRINGE Inj (50 ml) IVP PRN (16:27)
[2017-10-19] MEDS ORDERED: (Novolin N) Insulin Human Isophane (NPH) 100 u/ml 10 ml vial SC SCH ×2 (18:00)
[2017-10-19 18:58] LABS: INR 1.2; PROTHROMBIN TIME 12.9 SECONDS (9.7-12.2)
[2017-10-20 07:52] LABS: HEMOGLOBIN 9.5 g/dL (11.0-16.0); MEAN CORPUSCULAR HEMOGLOBIN 27.9 pg (27.0-31.0); MEAN CORPUSCULAR HGB CONC 33.2 g/dL (33.0-37.0); MEAN PLATELET VOLUME 8.9 fL (7.2-11.7); RBC 3.42 Mil/uL (3.80-5.20); RED CELL DISTRIBUTION WIDTH 15.7 % (11.5-14.5); WHITE BLOOD COUNT 2.1 K/uL (4.8-10.8)
[2017-10-20] MEDS: (Novolin R) Insulin Human Regular 100 units/ml vial SC SCH ×7 (08:25→22:05)
[2017-10-20 08:26] LABS: BLOOD UREA NITROGEN 20 mg/dL (7-17); CALCIUM 9.4 mg/dl (8.6-10.4); GFR AFRICAN-AMERICAN > 60; GFR NON-AFRICAN AMERICAN > 60
[2017-10-20] MEDS ORDERED: (Novolin 70/30) NPH/Regular 70/30 Units/ml 10 ml vial SC STA (09:03)
[2017-10-20] MEDS ORDERED: (Novolin N) Insulin Human Isophane (NPH) 100 u/ml 10 ml vial SC SCH (09:03)
[2017-10-20 11:26] LABS: INR 1.4; PROTHROMBIN TIME 15.6 SECONDS (9.7-12.2)
[2017-10-20] MEDS ORDERED: Sodium Chloride 0.9% 1,000 ML IV ONE (11:34)
--- NOTE | 2017-10-20 14:53 | CARD ---
APPROVED REPORT Date of service: 10/17/2017 EKG Measurement Heart [id number] <Conclusion> Normal sinus rhythm Minimal voltage criteria for LVH, may be normal variant Early repolarization Borderline ECG
--- NOTE | 2017-10-20 16:04 | CP.PCM.PN ---
Subjective - Date & Time of Evaluation Date of Evaluation: 10/19/17 Time of Evaluation: 19:35 - Subjective Subjective: Pt seen and examined Objective - Vital Signs/Intake and Output Vital Signs (last 24 hours): Temp Pulse Resp BP Pulse Ox 98.3 F 75 20 151/85 H 97 10/20/17 07:00 10/20/17 12:59 10/20/17 07:00 10/20/17 07:00 10/20/17 07:00 - Medications Medications: Current Medications Acetaminophen (Tylenol 325mg Tab) 650 mg PO Q6H PRN PRN Reason: Pain, moderate (4-7) Clonidine HCl (Catapres) 0.1 mg PO BID [facility] Last Admin: 10/20/17 09:35 Dose: 0.1 mg Dextrose (Dextrose 50% Inj) 0 ml IVP .STAT PRN; Protocol PRN Reason: Hypoglycemia Protocol Last Admin: 10/19/17 16:27 Dose: 50 ml Dextrose (Glutose 15) 0 gm PO .ONCE PRN; Protocol PRN Reason: Hypoglycemia Protocol Ergocalciferol (Drisdol 50,000 Intl Units Cap) 1 cap PO QWK [facility] Famotidine (Pepcid) 20 mg PO DAILY [facility] Last Admin: 10/20/17 09:35 Dose: 20 mg Folic Acid (Folic Acid) 1 mg PO DAILY [facility] Last Admin: 10/20/17 09:35 Dose: 1 mg Glucagon (Glucagen Diagnostic Kit) 0 mg IM .STAT PRN; Protocol PRN Reason: Hypoglycemia Protocol Dextrose (Dextrose 5% In Water 1000 Ml) 1,000 mls @ 0 mls/hr IV .Q0M PRN; Protocol; Per Protocol PRN Reason: Hypoglycemia Protocol Insulin Human Isoph/Insulin Regular (Novolin 70/30 (70/30 Units/Ml) 10 Ml) 10 units SC 1800 [facility] Insulin Human Isoph/Insulin Regular (Novolin 70/30 (70/30 Units/Ml) 10 Ml) 15 units SC 0800 [facility] Insulin Human Regular (Novolin R) 6 unit SC ACTID [facility] Last Admin: 10/20/17 12:31 Dose: 6 units Insulin Human Regular (Novolin R) 0 unit SC ACHS [facility] PRN Reason: Protocol Last Admin: 10/20/17 12:32 Dose: 4 units Lorazepam (Ativan) 0.5 mg PO BID [facility] Last Admin: 10/20/17 09:35 Dose: 0.5 mg Tacrolimus (Prograf Cap) 1.5 mg PO Q12 [facility] Last Admin: 10/20/17 09:36 Dose: 1.5 mg Temazepam (Restoril) 30 mg PO HS PRN PRN Reason: Insomnia Last Admin: 10/19/17 22:04 Dose: 30 mg Warfarin Sodium (Coumadin) 5 mg PO 1800 [facility] Stop: 10/20/17 18:01 - Labs Labs: 10/20/17 07:32 10/20/17 07:32 PT 15.6 SECONDS (9.7-12.2) H 10/20/17 11:01 INR 1.4 10/20/17 11:01 APTT 81 SECONDS (21-34) H D 10/20/17 07:32 Assessment and Plan (1) Deep venous thrombosis Status: Acute (2) Anxiety Status: Acute (3) Anxiety and depression Status: Chronic (4) Diabetes mellitus Status: Chronic
[2017-10-20] MEDS: (Novolin 70/30) NPH/Regular 70/30 Units/ml 10 ml vial SC SCH (17:17)
--- NOTE | 2017-10-20 23:07 | CP.PCM.PN ---
Subjective - Date & Time of Evaluation Date of Evaluation: 10/20/17 Time of Evaluation: 18:35 - Subjective Subjective: PT SEEN AND EXAMINED, PT INSULIN WAS HELD DUE TO LOW BS, BUT NOW ITS 500, PT HAS H/O IVC FILTER WE SHALL D/C HEPARIN OR ORAL ANTICOAGULANT DUE TO PMH OF LIVER PROBLEMS AND INABILTY TO CONTRIOL INR Objective - Vital Signs/Intake and Output Vital Signs (last 24 hours): Temp Pulse Resp BP Pulse Ox 98.3 F 86 18 117/64 96 10/20/17 16:00 10/20/17 16:00 10/20/17 16:00 10/20/17 16:00 10/20/17 16:00 - Medications Medications: Current Medications Acetaminophen (Tylenol 325mg Tab) 650 mg PO Q6H PRN PRN Reason: Pain, moderate (4-7) Clonidine HCl (Catapres) 0.1 mg PO BID [facility] Last Admin: 10/20/17 18:04 Dose: 0.1 mg Dextrose (Dextrose 50% Inj) 0 ml IVP .STAT PRN; Protocol PRN Reason: Hypoglycemia Protocol Last Admin: 10/19/17 16:27 Dose: 50 ml Dextrose (Glutose 15) 0 gm PO .ONCE PRN; Protocol PRN Reason: Hypoglycemia Protocol Ergocalciferol (Drisdol 50,000 Intl Units Cap) 1 cap PO QWK [facility] Famotidine (Pepcid) 20 mg PO DAILY [facility] Last Admin: 10/20/17 09:35 Dose: 20 mg Folic Acid (Folic Acid) 1 mg PO DAILY [facility] Last Admin: 10/20/17 09:35 Dose: 1 mg Glucagon (Glucagen Diagnostic Kit) 0 mg IM .STAT PRN; Protocol PRN Reason: Hypoglycemia Protocol Dextrose (Dextrose 5% In Water 1000 Ml) 1,000 mls @ 0 mls/hr IV .Q0M PRN; Protocol; Per Protocol PRN Reason: Hypoglycemia Protocol Insulin Human Isoph/Insulin Regular (Novolin 70/30 (70/30 Units/Ml) 10 Ml) 10 units SC 1800 [facility] Last Admin: 10/20/17 17:17 Dose: Not Given Insulin Human Isoph/Insulin Regular (Novolin 70/30 (70/30 Units/Ml) 10 Ml) 15 units SC 0800 [facility] Insulin Human Regular (Novolin R) 6 unit SC ACTID [facility] Last Admin: 10/20/17 17:17 Dose: Not Given Insulin Human Regular (Novolin R) 0 unit SC ACHS [facility] PRN Reason: Protocol Last Admin: 10/20/17 22:05 Dose: Not Given Lorazepam (Ativan) 0.5 mg PO BID [facility] Last Admin: 10/20/17 18:04 Dose: 0.5 mg Tacrolimus (Prograf Cap) 1.5 mg PO Q12 [facility] Last Admin: 10/20/17 21:54 Dose: 1.5 mg Temazepam (Restoril) 30 mg PO HS PRN PRN Reason: Insomnia Last Admin: 10/19/17 22:04 Dose: 30 mg - Labs Labs: 10/20/17 07:32 10/20/17 07:32 PT 15.6 SECONDS (9.7-12.2) H 10/20/17 11:01 INR 1.4 10/20/17 11:01 APTT 81 SECONDS (21-34) H D 10/20/17 07:32 - Constitutional Appears: No Acute Distress - Head Exam Head Exam: ATRAUMATIC, NORMAL INSPECTION, NORMOCEPHALIC - Eye Exam Eye Exam: EOMI, Normal appearance, PERRL Pupil Exam: NORMAL ACCOMODATION, PERRL - ENT Exam ENT Exam: Mucous Membranes Moist - Respiratory Exam Respiratory Exam: Clear to Ausculation Bilateral, NORMAL BREATHING PATTERN - Cardiovascular Exam Cardiovascular Exam: REGULAR RHYTHM, +S1, +S2. absent: Murmur - GI/Abdominal Exam GI & Abdominal Exam: Soft, Normal Bowel Sounds. absent: Tenderness Assessment and Plan (1) Deep venous thrombosis Status: Acute (2) Anxiety Status: Acute (3) Anxiety and depression Status: Chronic (4) Diabetes mellitus Status: Chronic
[2017-10-21] MEDS ORDERED: (Novolin 70/30) NPH/Regular 70/30 Units/ml 10 ml vial SC SCH (08:00)
[2017-10-21] MEDS: (Novolin R) Insulin Human Regular 100 units/ml vial SC SCH ×6 (08:47→17:51)
[2017-10-21 08:54] VITALS: RESP 18
[2017-10-21] MEDS: Dextrose 50% SYRINGE Inj (50 ml) IVP PRN (15:30)
--- NOTE | 2017-10-21 16:00 | CP.PCM.PN ---
Subjective - Date & Time of Evaluation Date of Evaluation: 10/21/17 Time of Evaluation: 11:45 Objective - Vital Signs/Intake and Output Vital Signs (last 24 hours): Temp Pulse Resp BP Pulse Ox 97.2 F L 77 18 157/80 H 96 10/21/17 08:53 10/21/17 08:53 10/21/17 08:53 10/21/17 08:53 10/21/17 08:53 Intake and Output: 10/21/17 10/21/17 06:59 18:59 Intake Total 480 Balance 480 - Medications Medications: Current Medications Acetaminophen (Tylenol 325mg Tab) 650 mg PO Q6H PRN PRN Reason: Pain, moderate (4-7) Clonidine HCl (Catapres) 0.1 mg PO BID [facility] Last Admin: 10/21/17 10:17 Dose: 0.1 mg Dextrose (Dextrose 50% Inj) 0 ml IVP .STAT PRN; Protocol PRN Reason: Hypoglycemia Protocol Last Admin: 10/21/17 15:30 Dose: 50 ml Dextrose (Glutose 15) 0 gm PO .ONCE PRN; Protocol PRN Reason: Hypoglycemia Protocol Ergocalciferol (Drisdol 50,000 Intl Units Cap) 1 cap PO QWK [facility] Famotidine (Pepcid) 20 mg PO DAILY [facility] Last Admin: 10/21/17 10:17 Dose: 20 mg Folic Acid (Folic Acid) 1 mg PO DAILY [facility] Last Admin: 10/21/17 10:18 Dose: 1 mg Glucagon (Glucagen Diagnostic Kit) 0 mg IM .STAT PRN; Protocol PRN Reason: Hypoglycemia Protocol Dextrose (Dextrose 5% In Water 1000 Ml) 1,000 mls @ 0 mls/hr IV .Q0M PRN; Protocol; Per Protocol PRN Reason: Hypoglycemia Protocol Insulin Human Isoph/Insulin Regular (Novolin 70/30 (70/30 Units/Ml) 10 Ml) 10 units SC 1800 [facility] Last Admin: 10/20/17 17:17 Dose: Not Given Insulin Human Isoph/Insulin Regular (Novolin 70/30 (70/30 Units/Ml) 10 Ml) 15 units SC 0800 [facility] Last Admin: 10/21/17 08:47 Dose: 15 units Insulin Human Regular (Novolin R) 6 unit SC ACTID [facility] Last Admin: 10/21/17 12:42 Dose: 6 units Insulin Human Regular (Novolin R) 0 unit SC ACHS [facility] PRN Reason: Protocol Last Admin: 10/21/17 12:43 Dose: 2 units Lorazepam (Ativan) 0.5 mg PO BID [facility] Last Admin: 10/21/17 10:17 Dose: 0.5 mg Tacrolimus (Prograf Cap) 1.5 mg PO Q12 [facility] Last Admin: 10/21/17 10:17 Dose: 1.5 mg Temazepam (Restoril) 30 mg PO HS PRN PRN Reason: Insomnia Last Admin: 10/21/17 01:44 Dose: 30 mg - Labs Labs: 10/20/17 07:32 10/20/17 07:32 PT 15.6 SECONDS (9.7-12.2) H 10/20/17 11:01 INR 1.4 10/20/17 11:01 APTT 81 SECONDS (21-34) H D 10/20/17 07:32
[2017-10-21 16:45] VITALS: BP 130/75; PULSE 71; TEMP 97.7; O2SAT 97
[2017-10-21] MEDS: (Novolin 70/30) NPH/Regular 70/30 Units/ml 10 ml vial SC SCH (17:51)
--- NOTE | 2017-10-22 08:52 | CP.PCM.DIS ---
Provider - Provider Date of Admission: 10/17/17 16:40 Attending physician: Westley Hall MD Time Spent in preparation of Discharge (in minutes): 45 Diagnosis - Discharge Diagnosis (1) Deep venous thrombosis Status: Acute (2) Anxiety Status: Acute (3) Anxiety and depression Status: Chronic Priority: Low (4) Diabetes mellitus Status: Chronic Hospital Course - Lab Results Lab Results: Most Recent Lab Values WBC 2.1 K/uL (4.8-10.8) L 10/20/17 07:32 RBC 3.42 Mil/uL (3.80-5.20) L 10/20/17 07:32 Hgb 9.5 g/dL (11.0-16.0) L 10/20/17 07:32 Hct 28.7 % (34.0-47.0) L 10/20/17 07:32 MCV 84.0 fL (81.0-99.0) 10/20/17 07:32 MCH 27.9 pg (27.0-31.0) 10/20/17 07:32 MCHC 33.2 g/dL (33.0-37.0) 10/20/17 07:32 RDW 15.7 % (11.5-14.5) H 10/20/17 07:32 Plt Count 77 K/uL (130-400) L 10/20/17 07:32 MPV 8.9 fL (7.2-11.7) 10/20/17 07:32 Neut % (Auto) 65.8 % (50.0-75.0) 10/18/17 13:50 Lymph % (Auto) 24.4 % (20.0-40.0) 10/18/17 13:50 [place] % (Auto) 5.9 % (0.0-10.0) 10/18/17 13:50 Eos % (Auto) 3.3 % (0.0-4.0) 10/18/17 13:50 Baso % (Auto) 0.6 % (0.0-2.0) 10/18/17 13:50 Neut # (Auto) 1.7 K/uL (1.8-7.0) L 10/18/17 13:50 Lymph # (Auto) 0.6 K/uL (1.0-4.3) L 10/18/17 13:50 [place] # (Auto) 0.2 K/uL (0.0-0.8) 10/18/17 13:50 Eos # (Auto) 0.1 K/uL (0.0-0.7) 10/18/17 13:50 Baso # (Auto) 0.0 K/uL (0.0-0.2) 10/18/17 13:50 Differential Comment 10/18/17 13:50 PT 15.6 SECONDS (9.7-12.2) H 10/20/17 11:01 INR 1.4 10/20/17 11:01 APTT 81 SECONDS (21-34) H D 10/20/17 07:32 D-Dimer, Quantitative 856 ng/mlDDU (0-243) H 10/17/17 13:20 Sodium 135 mmol/L (132-148) 10/20/17 07:32 Potassium 5.1 mmol/L (3.6-5.2) 10/20/17 07:32 Chloride 103 mmol/L (98-107) 10/20/17 07:32 Carbon Dioxide 22 mmol/L (22-30) 10/20/17 07:32 Anion Gap 16 (10-20) 10/20/17 07:32 BUN 20 mg/dL (7-17) H 10/20/17 07:32 Creatinine 0.9 mg/dL (0.7-1.2) 10/20/17 07:32 Est GFR ( Amer) > 60 10/20/17 07:32 Est GFR (Non-Af Amer) > 60 10/20/17 07:32 POC Glucose (mg/dL) 164 mg/dL (65-110) H 10/21/17 17:10 Random Glucose 503 mg/dL (65-105) H* D 10/20/17 07:32 Calcium 9.4 mg/dl (8.6-10.4) 10/20/17 07:32 Total Bilirubin 0.6 mg/dL (0.2-1.3) 10/17/17 13:20 AST 71 U/L (14-36) H 10/17/17 13:20 ALT 59 U/L (9-52) H D 10/17/17 13:20 Alkaline Phosphatase 262 U/L (38-126) H D 10/17/17 13:20 Troponin I < 0.0120 ng/mL (0.00-0.120) 10/17/17 13:20 NT-Pro-B Natriuret Pep 2390 pg/mL (0-900) H 10/17/17 13:20 Total Protein 6.9 g/dL (6.3-8.3) 10/17/17 13:20 Albumin 3.6 g/dL (3.5-5.0) 10/17/17 13:20 Globulin 3.3 gm/dL (2.2-3.9) 10/17/17 13:20 Albumin/Globulin Ratio 1.1 (1.0-2.1) 10/17/17 13:20 Urine Color Yellow (YELLOW) 10/17/17 16:16 Urine Clarity Hazy (Clear) 10/17/17 16:16 Urine pH 7.0 (5.0-8.0) 10/17/17 16:16 Ur Specific Hazel 1.008 (1.003-1.030) 10/17/17 16:16 Urine Protein Negative mg/dL (NEGATIVE) 10/17/17 16:16 Urine Glucose (UA) Normal mg/dL (Normal) 10/17/17 16:16 Urine Ketones Negative mg/dL (NEGATIVE) 10/17/17 16:16 Urine Blood Negative (NEGATIVE) 10/17/17 16:16 Urine Nitrate Negative (NEGATIVE) 10/17/17 16:16 Urine Bilirubin Negative (NEGATIVE) 10/17/17 16:16 Urine Urobilinogen Normal mg/dL (0.2-1.0) 10/17/17 16:16 Ur Leukocyte Esterase Trace Zenaida/uL (Negative) 10/17/17 16:16 Urine WBC (Auto) 3 /hpf (0-5) 10/17/17 16:16 Ur Squamous Epith Cells < 1 /hpf (0-5) 10/17/17 16:16 - Hospital Course Hospital Course: Pt is for discharge Discharge Exam - Head Exam Head Exam: ATRAUMATIC, NORMAL INSPECTION, NORMOCEPHALIC Discharge Plan - Follow Up Plan Condition: SERIOUS Disposition: HOME/ ROUTINE Instructions: Heart Healthy Diet, Diabetes Exchange Diet, Carbohydrate Counting Diet, Deep Vein Thrombosis (Blood Clots in the Legs) (DC), Diabetes Diet Additional Instructions: Please follow up with Dr. Hall office in 1 week Continue medication as per Med.rec. Please check you blood sugar TID Referrals: Westley Hall MD [Staff Provider] -
[2017-10-24] MEDS ORDERED: Ergocalciferol 50,000 Intl Units Cap PO SCH (10:00)
== END 2017-10-21 17:57 | disposition home or self-care (01) | DRG 300 ==
LOC: C.ER 12:18 → C.9E 16:40 → C.6T 17:50
PROVIDERS: ADMIT Internal Medicine; ATTEND Internal Medicine
DX: I82.493 Acute embolism and thrombosis of other specified deep vein of lower extremity, bilateral (principal); Z94.4 Liver transplant status; B18.2 Chronic viral hepatitis C; E11.9 Type 2 diabetes mellitus without complications; F31.9 Bipolar disorder, unspecified; F41.9 Anxiety disorder, unspecified; I10 Essential (primary) hypertension; I25.10 Atherosclerotic heart disease of native coronary artery without angina pectoris; M17.12 Unilateral primary osteoarthritis, left knee

== ENCOUNTER 2018-01-25 17:33 | Inpatient (IN) | payer MEDICARE, MEDICAID ==
[2018-01-25 17:34] VITALS: BMI 21.2
[2018-01-25 18:27] LABS: BASO % 0.9 % (0.0-2.0); EOS # 0.3 K/uL (0.0-0.7); EOS % 6.3 % (0.0-4.0); HEMOGLOBIN 11.1 g/dL (11.0-16.0); LYMPH # 1.9 K/uL (1.0-4.3); LYMPH % 34.5 % (20.0-40.0); MEAN CORPUSCULAR HEMOGLOBIN 28.9 pg (27.0-31.0); MEAN CORPUSCULAR HGB CONC 33.1 g/dL (33.0-37.0); MEAN PLATELET VOLUME 8.1 fL (7.2-11.7); MONO # 0.4 K/uL (0.0-0.8); MONO % 7.8 % (0.0-10.0); NEUT # 2.7 K/uL (1.8-7.0); NEUT % 50.5 % (50.0-75.0); RBC 3.85 Mil/uL (3.80-5.20); RED CELL DISTRIBUTION WIDTH 19.4 % (11.5-14.5)
[2018-01-25 18:31] LABS: WHITE BLOOD COUNT 5.4 K/uL (4.8-10.8)
[2018-01-25 18:32] LABS: MEAN CELL VOLUME 87.3 fL (81.0-99.0)
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
[2018-01-25 18:45] LABS: ALBUMIN 3.8 g/dL (3.5-5.0); ALT/SGPT 45 U/L (9-52); AST/SGOT 75 U/L (14-36); BLOOD UREA NITROGEN 33 mg/dL (7-17); CALCIUM 9.2 mg/dl (8.6-10.4); GFR NON-AFRICAN AMERICAN 48
[2018-01-25] MEDS ORDERED: (Novolin N) Insulin Human Isophane (NPH) 100 u/ml 10 ml vial SC SCH (18:45)
[2018-01-25 20:33] LABS: INR 1.1; PROTHROMBIN TIME 12.5 SECONDS (9.7-12.2)
[2018-01-25 20:56] VITALS: RESP 20
[2018-01-25] MEDS: (Novolog) Insulin Aspart, Recombinant 100 u/ml 10 ml vial SC SCH (21:24)
--- NOTE | 2018-01-25 23:49 | CP.PCM.HP ---
Past Patient History - Infectious Disease Hx of Infectious Diseases: None - Past Medical History & Family History Past Medical History?: Yes - Past Social History Smoking Status: Never Smoked - CARDIAC Hx Hypertension: Yes Hx Peripheral Edema: Yes - PULMONARY Hx Bronchitis: Yes Hx Chronic Obstructive Pulmonary Disease (COPD): (DENIES) Hx Pneumonia: Yes - NEUROLOGICAL Hx Neurological Disorder: No - HEENT Hx HEENT Problems: Yes Hx Blind: Yes (Right eye blind) - RENAL Hx Chronic Kidney Disease: No - ENDOCRINE/METABOLIC Hx Endocrine Disorders: Yes Hx Diabetes Mellitus Type 2: Yes - HEMATOLOGICAL/ONCOLOGICAL Hx Sickle Cell Disease: No - INTEGUMENTARY Hx Dermatological Problems: No - MUSCULOSKELETAL/RHEUMATOLOGICAL Hx Arthritis: Yes (L KNEE; BACK) Hx Fractures: Yes (L leg) - GASTROINTESTINAL Hx Gastritis: Yes - GENITOURINARY/GYNECOLOGICAL Hx Genitourinary Disorders: No - PSYCHIATRIC Hx Anxiety: Yes Hx Bipolar Disorder: Yes Hx Depression: Yes Hx Substance Use: No - SURGICAL HISTORY Hx Tonsillectomy: No - ANESTHESIA Hx Anesthesia: Yes Hx Anesthesia Reactions: No Hx Malignant Hyperthermia: No Meds Allergies/Adverse Reactions: Allergies Allergy/AdvReac Type Severity Reaction Status Date / Time No Known Allergies Allergy Verified 01/25/18 17:44 Results - Vital Signs Recent Vital Signs: Last Vital Signs Temp 97.7 F 01/25/18 20:55 Pulse 66 01/25/18 20:55 Resp 20 01/25/18 20:55 BP 138/77 01/25/18 20:55 Pulse Ox 98 01/25/18 23:24 - Labs Result Diagrams: 01/25/18 18:21 01/25/18 18:21 Labs: Laboratory Results - last 24 hr 01/25/18 01/25/18 01/25/18 18:21 18:21 18:21 WBC 5.4 D RBC 3.85 Hgb 11.1 Hct 33.6 L MCV 87.3 D MCH 28.9 MCHC 33.1 RDW 19.4 H Plt Count 132 MPV 8.1 Neut % (Auto) 50.5 Lymph % (Auto) 34.5 [place] % (Auto) 7.8 Eos % (Auto) 6.3 H Baso % (Auto) 0.9 Neut # (Auto) 2.7 Lymph # (Auto) 1.9 [place] # (Auto) 0.4 Eos # (Auto) 0.3 Baso # (Auto) 0.0 PT INR APTT Sodium 138 Potassium 4.3 Chloride 102 Carbon Dioxide 24 Anion Gap 16 BUN 33 H Creatinine 1.1 Est GFR ( Amer) 58 Est GFR (Non-Af Amer) 48 POC Glucose (mg/dL) Random Glucose 45 L Calcium 9.2 Total Bilirubin 0.5 AST 75 H D ALT 45 Alkaline Phosphatase 262 H D Ammonia 18 Troponin I < 0.0120 Total Protein 7.6 Albumin 3.8 Globulin 3.7 Albumin/Globulin Ratio 1.0 01/25/18 01/25/18 01/25/18 18:53 18:56 18:58 WBC RBC Hgb Hct MCV MCH MCHC RDW Plt Count MPV Neut % (Auto) Lymph % (Auto) [place] % (Auto) Eos % (Auto) Baso % (Auto) Neut # (Auto) Lymph # (Auto) [place] # (Auto) Eos # (Auto) Baso # (Auto) PT INR APTT Sodium Potassium Chloride Carbon Dioxide Anion Gap BUN Creatinine Est GFR ( Amer) Est GFR (Non-Af Amer) POC Glucose (mg/dL) 137 H 44 L 47 L Random Glucose Calcium Total Bilirubin AST ALT Alkaline Phosphatase Ammonia Troponin I Total Protein Albumin Globulin Albumin/Globulin Ratio 01/25/18 01/25/18 01/25/18 20:15 20:20 21:15 WBC RBC Hgb Hct MCV MCH MCHC RDW Plt Count MPV Neut % (Auto) Lymph % (Auto) [place] % (Auto) Eos % (Auto) Baso % (Auto) Neut # (Auto) Lymph # (Auto) [place] # (Auto) Eos # (Auto) Baso # (Auto) PT 12.5 H INR 1.1 APTT 26 Sodium Potassium Chloride Carbon Dioxide Anion Gap BUN Creatinine Est GFR ( Amer) Est GFR (Non-Af Amer) POC Glucose (mg/dL) 154 H 212 H Random Glucose Calcium Total Bilirubin AST ALT Alkaline Phosphatase Ammonia Troponin I Total Protein Albumin Globulin Albumin/Globulin Ratio
[2018-01-26 07:39] LABS: URINE BILIRUBIN NEGATIVE (NEGATIVE); URINE BLOOD NEGATIVE (NEGATIVE); URINE CLARITY Clear (Clear); URINE COLOR Straw (YELLOW); URINE GLUCOSE (UA) 2+ mg/dL (Normal); URINE LEUKOCYTE ESTERASE NEG Leu/uL (Negative); URINE PROTEIN NEGATIVE (NEGATIVE); URINE UROBILINOGEN NORMAL mg/dL (0.2-1.0)
[2018-01-26] MEDS: (Novolin R) Insulin Human Regular 100 units/ml vial SC SCH ×2 (08:11→12:12)
[2018-01-26] MEDS: (Novolog) Insulin Aspart, Recombinant 100 u/ml 10 ml vial SC SCH ×4 (08:12→22:16)
--- NOTE | 2018-01-26 09:18 | RAD ---
Date of service: 01/25/2018 PROCEDURE: CHEST RADIOGRAPH, 1 VIEW HISTORY: chest pain COMPARISON: 10/17/2017 FINDINGS: LUNGS: Clear. PLEURA: No pneumothorax or pleural fluid seen. CARDIOVASCULAR: Normal heart size. Calcified mitral annulus incidentally noted. There is atherosclerotic calcification of the aortic arch. OSSEOUS STRUCTURES: No significant abnormalities. VISUALIZED UPPER ABDOMEN: Normal. OTHER FINDINGS: None. IMPRESSION: No active disease.
[2018-01-26] MEDS: Vitamin B Complex/Vitamin C Tab PO SCH (10:48)
[2018-01-26] MEDS: Ergocalciferol 50,000 Intl Units Cap PO SCH (10:48)
[2018-01-26] MEDS: Magnesium Oxide 400 mg Tab UD PO SCH ×2 (10:48→17:30)
[2018-01-26] MEDS: POLYETHYLENE GLYCOL 3350 17 GM/Dose PACKET PO SCH (10:56)
[2018-01-26] MEDS: (Novolin N) Insulin Human Isophane (NPH) 100 u/ml 10 ml vial SC SCH ×2 (10:56→22:16)
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
[2018-01-26] MEDS ORDERED: Dextrose 50% SYRINGE Inj (50 ml) ONE (16:09)
--- NOTE | 2018-01-26 17:04 | CARD ---
APPROVED REPORT Date of service: 01/25/2018 EKG Measurement Heart [id number] <Conclusion> Normal sinus rhythm Normal ECG
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
[2018-01-27] MEDS ORDERED: (Novolin R) Insulin Human Regular 100 units/ml vial SC SCH (06:22)
[2018-01-27] MEDS ORDERED: (Novolin N) Insulin Human Isophane (NPH) 100 u/ml 10 ml vial SC SCH (06:22)
--- NOTE | 2018-01-27 06:22 | CP.PCM.PN ---
Subjective - Date & Time of Evaluation Date of Evaluation: 01/26/18 - Subjective Subjective: dictated Objective - Vital Signs/Intake and Output Vital Signs (last 24 hours): Temp Pulse Resp BP Pulse Ox 97.7 F 61 20 126/70 96 01/27/18 00:00 01/27/18 00:00 01/27/18 00:00 01/27/18 00:00 01/27/18 00:00 - Medications Medications: Current Medications Clonidine HCl (Catapres) 0.1 mg PO BID [facility] Last Admin: 01/26/18 17:31 Dose: 0.1 mg Ergocalciferol (Drisdol 50,000 Intl Units Cap) 1 cap PO QWK [facility] Last Admin: 01/26/18 10:48 Dose: 1 cap Famotidine (Pepcid) 20 mg PO DAILY [facility] Last Admin: 01/26/18 10:51 Dose: 20 mg Heparin Sodium (Porcine) (Heparin) 5,000 units SC Q8 [facility] Last Admin: 01/27/18 06:09 Dose: 5,000 units Influenza Virus Vaccine (Fluzone Quad [id number]) 60 mcg IM .ONCE ONE Stop: 01/28/18 10:01 Insulin Aspart (Novolog) 0 unit SC ACHS [facility]; Protocol Last Admin: 01/26/18 22:16 Dose: Not Given Insulin Human NPH (Novolin N) 9 unit SC Q12H [facility] Insulin Human Regular (Novolin R) 4 unit SC TIDCC [facility] Lorazepam (Ativan) 0.5 mg PO Q6 PRN PRN Reason: Anxiety Magnesium Oxide (Mag-Ox) 400 mg PO BID [facility] Last Admin: 01/26/18 17:30 Dose: 400 mg Pneumococcal Polyvalent Vaccine (Pneumovax 23 Vaccine) 0.5 ml SC .ONCE ONE Stop: 01/28/18 10:01 Polyethylene Glycol (Miralax) 17 gm PO DAILY [facility] Last Admin: 01/26/18 10:56 Dose: Not Given Quetiapine Fumarate (Seroquel) 25 mg PO BID [facility] Tacrolimus (Prograf Cap) 1 mg PO Q12 [facility] Last Admin: 01/26/18 22:17 Dose: 1 mg Tacrolimus (Prograf Cap) 0.5 mg PO Q12 [facility] Last Admin: 01/26/18 22:17 Dose: 0.5 mg Temazepam (Restoril) 30 mg PO HS PRN PRN Reason: Insomnia Last Admin: 01/26/18 22:29 Dose: 30 mg Vitamin B Complex/Vitamin C (Berocca) 1 tab PO DAILY [facility] Last Admin: 01/26/18 10:48 Dose: 1 tab - Labs Labs: 01/25/18 18:21 01/25/18 18:21 PT 12.5 SECONDS (9.7-12.2) H 01/25/18 20:15 INR 1.1 01/25/18 20:15 APTT 26 SECONDS (21-34) 01/25/18 20:15
[2018-01-27 07:40] LABS: HEMOGLOBIN 10.7 g/dL (11.0-16.0); MEAN CELL VOLUME 86.6 fL (81.0-99.0); MEAN CORPUSCULAR HEMOGLOBIN 29.2 pg (27.0-31.0); MEAN CORPUSCULAR HGB CONC 33.7 g/dL (33.0-37.0); MEAN PLATELET VOLUME 8.1 fL (7.2-11.7); RBC 3.66 Mil/uL (3.80-5.20); RED CELL DISTRIBUTION WIDTH 19.4 % (11.5-14.5)
[2018-01-27 07:48] LABS: WHITE BLOOD COUNT 2.9 K/uL (4.8-10.8)
[2018-01-27] MEDS: (Novolog) Insulin Aspart, Recombinant 100 u/ml 10 ml vial SC SCH ×4 (07:48→21:58)
[2018-01-27 08:10] LABS: ALB/GLOB RATIO 0.9 (1.0-2.1); ALBUMIN 3.5 g/dL (3.5-5.0); ALT/SGPT 45 U/L (9-52); AST/SGOT 76 U/L (14-36); BLOOD UREA NITROGEN 25 mg/dL (7-17); CALCIUM 9.4 mg/dl (8.6-10.4); GFR NON-AFRICAN AMERICAN > 60
[2018-01-27] MEDS: Magnesium Oxide 400 mg Tab UD PO SCH ×2 (10:48→17:41)
[2018-01-27] MEDS: Vitamin B Complex/Vitamin C Tab PO SCH (10:48)
[2018-01-27] MEDS: (Novolin N) Insulin Human Isophane (NPH) 100 u/ml 10 ml vial SC SCH ×2 (10:49→21:57)
[2018-01-27] MEDS: POLYETHYLENE GLYCOL 3350 17 GM/Dose PACKET PO SCH (10:49)
--- NOTE | 2018-01-27 13:37 | PN ---
DATE: 01/27/2018 SUBJECTIVE: The patient, Janet Mckenna is being seen by Psychiatry. The patient is still looking . She is afebrile. No shortness of breath. Blood sugars are somewhat elevated. PHYSICAL EXAMINATION: VITAL SIGNS: Blood pressure 133/73, pulse 76, respiratory rate 20, and temperature 97.5. LUNGS: Clear. CARDIOVASCULAR SYSTEM: S1 and S2, regular. ABDOMEN: Soft. ASSESSMENT: 1. Acute on chronic psychosis. 2. Uncontrolled diabetes. 3. Hypertension. 4. Chronic hepatitis B with the patient on immunosuppressive therapy, liver transplant and continue current medications. Westley Hall MD
--- NOTE | 2018-01-27 21:19 | CP.PCM.PN ---
Subjective - Subjective Subjective: dictated Objective - Vital Signs/Intake and Output Vital Signs (last 24 hours): Temp Pulse Resp BP Pulse Ox 98.4 F 60 20 153/72 H 95 01/27/18 16:00 01/27/18 16:00 01/27/18 16:00 01/27/18 16:00 01/27/18 16:00 - Medications Medications: Current Medications Clonidine HCl (Catapres) 0.1 mg PO BID [facility] Last Admin: 01/27/18 17:41 Dose: 0.1 mg Ergocalciferol (Drisdol 50,000 Intl Units Cap) 1 cap PO QWK [facility] Last Admin: 01/26/18 10:48 Dose: 1 cap Famotidine (Pepcid) 20 mg PO DAILY [facility] Last Admin: 01/27/18 10:48 Dose: 20 mg Gabapentin (Neurontin) 100 mg PO TID [facility] Heparin Sodium (Porcine) (Heparin) 5,000 units SC Q8 [facility] Last Admin: 01/27/18 14:22 Dose: 5,000 units Influenza Virus Vaccine (Fluzone Quad [id number]) 60 mcg IM .ONCE ONE Stop: 01/28/18 10:01 Insulin Aspart (Novolog) 0 unit SC [facility]; Protocol Last Admin: 01/27/18 16:30 Dose: 4 units Insulin Human NPH (Novolin N) 9 unit SC Q12 [facility] Last Admin: 01/27/18 10:49 Dose: 9 units Insulin Human Regular (Novolin R) 4 unit SC TIDCC [facility] Lorazepam (Ativan) 0.5 mg PO Q6 PRN PRN Reason: Anxiety Magnesium Oxide (Mag-Ox) 400 mg PO BID [facility] Last Admin: 01/27/18 17:41 Dose: 400 mg Pneumococcal Polyvalent Vaccine (Pneumovax 23 Vaccine) 0.5 ml SC .ONCE ONE Stop: 01/28/18 10:01 Polyethylene Glycol (Miralax) 17 gm PO DAILY [facility] Last Admin: 01/27/18 10:49 Dose: Not Given Quetiapine Fumarate (Seroquel) 25 mg PO BID [facility] Last Admin: 01/27/18 17:41 Dose: 25 mg Tacrolimus (Prograf Cap) 1 mg PO Q12 [facility] Last Admin: 01/27/18 10:47 Dose: 1 mg Tacrolimus (Prograf Cap) 0.5 mg PO Q12 [facility] Last Admin: 01/27/18 10:47 Dose: 0.5 mg Temazepam (Restoril) 30 mg PO HS PRN PRN Reason: Insomnia Last Admin: 01/26/18 22:29 Dose: 30 mg Vitamin B Complex/Vitamin C (Berocca) 1 tab PO DAILY [facility] Last Admin: 01/27/18 10:48 Dose: 1 tab - Labs Labs: 01/27/18 07:33 01/27/18 07:33 PT 12.5 SECONDS (9.7-12.2) H 01/25/18 20:15 INR 1.1 01/25/18 20:15 APTT 26 SECONDS (21-34) 01/25/18 20:15
--- NOTE | 2018-01-28 03:20 | PN ---
DATE: 01/27/2018 SUBJECTIVE: Bala feels better, less depressed, less delusional, less hallucinating. No fever. No chills. Blood sugars are circulating widely. The patient is dietary noncompliant. PHYSICAL EXAMINATION: VITAL SIGNS: Blood pressure 153/72, pulse 60, respiratory rate 20, and temperature 98.4. LUNGS: Clear. CARDIOVASCULAR SYSTEM: S1 and S2 regular. ABDOMEN: Soft and nontender. Bowel sounds are positive. ASSESSMENT: 1. Uncontrolled diabetes. 2. 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 3. Hypertension. PLAN: Continue current medications. Psych followup. Monitor the patient. Westley Hall MD
[2018-01-28] MEDS: (Novolog) Insulin Aspart, Recombinant 100 u/ml 10 ml vial SC SCH ×4 (08:27→21:36)
[2018-01-28] MEDS ORDERED: Pneumococcal 23-Valent Vaccine SC ONE (10:00)
[2018-01-28] MEDS ORDERED: Influenza Vaccine 60 MCG/0.5 ML SYR (3 yr & up) IM ONE (10:00)
[2018-01-28] MEDS: Vitamin B Complex/Vitamin C Tab PO SCH (10:34)
[2018-01-28] MEDS: Magnesium Oxide 400 mg Tab UD PO SCH ×2 (10:35→17:41)
[2018-01-28] MEDS: POLYETHYLENE GLYCOL 3350 17 GM/Dose PACKET PO SCH (10:36)
[2018-01-28] MEDS: (Novolin N) Insulin Human Isophane (NPH) 100 u/ml 10 ml vial SC SCH ×2 (10:39→21:35)
[2018-01-29] MEDS ORDERED: (Novolog) Insulin Aspart, Recombinant 100 u/ml 10 ml vial SC ONE (03:01)
--- NOTE | 2018-01-29 04:18 | PN ---
DATE: 01/28/2018 SUBJECTIVE: The patient, Janet Mckenna, is improving. She is afebrile. Feels better. No nausea or vomiting. Less delusional. Less hallucinating. PHYSICAL EXAMINATION: VITAL SIGNS: Blood pressure 100/67, pulse 69, respiratory rate 20, and temperature 95.3. LUNGS: Bilaterally clear. CVS: S1 and S2 regular. ABDOMEN: Soft. ASSESSMENT: 1. Poorly controlled diabetes due to compliance. 2. Depression, psychosis. 3. Hypertension. 4. Dehydration. PLAN: Continue current medication. Monitor the patient. Westley Hall MD
[2018-01-29] MEDS: (Novolog) Insulin Aspart, Recombinant 100 u/ml 10 ml vial SC SCH ×4 (07:21→21:52)
[2018-01-29 07:58] LABS: CALCIUM 9.4 mg/dl (8.6-10.4)
[2018-01-29] MEDS: Vitamin B Complex/Vitamin C Tab PO SCH (09:20)
[2018-01-29] MEDS: Magnesium Oxide 400 mg Tab UD PO SCH ×2 (09:20→17:13)
[2018-01-29] MEDS: POLYETHYLENE GLYCOL 3350 17 GM/Dose PACKET PO SCH (09:21)
[2018-01-29] MEDS: (Novolin N) Insulin Human Isophane (NPH) 100 u/ml 10 ml vial SC SCH ×3 (10:04→21:50)
[2018-01-29] MEDS: Sodium Chloride 0.9% 1,000 ML IV SCH ×2 (13:05→21:52)
--- NOTE | 2018-01-29 21:58 | CP.PCM.PN ---
Subjective - Subjective Subjective: dictated Objective - Vital Signs/Intake and Output Vital Signs (last 24 hours): Temp Pulse Resp BP Pulse Ox 98.4 F 64 20 153/80 H 95 01/29/18 16:40 01/29/18 16:40 01/29/18 16:40 01/29/18 16:40 01/29/18 16:40 Intake and Output: 01/29/18 01/30/18 18:59 06:59 Intake Total 300 Balance 300 - Medications Medications: Current Medications Clonidine HCl (Catapres) 0.1 mg PO BID [facility] Last Admin: 01/29/18 17:13 Dose: 0.1 mg Ergocalciferol (Drisdol 50,000 Intl Units Cap) 1 cap PO QWK [facility] Last Admin: 01/26/18 10:48 Dose: 1 cap Famotidine (Pepcid) 20 mg PO DAILY [facility] Last Admin: 01/29/18 09:20 Dose: 20 mg Gabapentin (Neurontin) 100 mg PO TID [facility] Last Admin: 01/29/18 17:13 Dose: 100 mg Heparin Sodium (Porcine) (Heparin) 5,000 units SC Q8 [facility] Last Admin: 01/29/18 21:45 Dose: 5,000 units Sodium Chloride (Sodium Chloride 0.9%) 1,000 mls @ 100 mls/hr IV .Q10H [facility] Last Admin: 01/29/18 21:52 Dose: Not Given Insulin Aspart (Novolog) 0 unit SC ACHS [facility]; Protocol Last Admin: 01/29/18 21:52 Dose: Not Given Insulin Human NPH (Novolin N) 9 unit SC Q12 [facility] Last Admin: 01/29/18 21:50 Dose: Not Given Insulin Human Regular (Novolin R) 4 unit SC TIDCC [facility] Lorazepam (Ativan) 0.5 mg PO Q6 PRN PRN Reason: Anxiety Magnesium Oxide (Mag-Ox) 400 mg PO BID [facility] Last Admin: 01/29/18 17:13 Dose: 400 mg Polyethylene Glycol (Miralax) 17 gm PO DAILY [facility] Last Admin: 01/29/18 09:21 Dose: Not Given Quetiapine Fumarate (Seroquel) 25 mg PO BID [facility] Last Admin: 01/29/18 17:13 Dose: 25 mg Tacrolimus (Prograf Cap) 1 mg PO Q12 [facility] Last Admin: 01/29/18 21:44 Dose: 1 mg Tacrolimus (Prograf Cap) 0.5 mg PO Q12 [facility] Last Admin: 01/29/18 21:44 Dose: 0.5 mg Temazepam (Restoril) 30 mg PO HS PRN PRN Reason: Insomnia Last Admin: 01/28/18 21:45 Dose: 30 mg Vitamin B Complex/Vitamin C (Berocca) 1 tab PO DAILY [facility] Last Admin: 01/29/18 09:20 Dose: 1 tab - Labs Labs: 01/27/18 07:33 01/29/18 07:16 PT 12.5 SECONDS (9.7-12.2) H 01/25/18 20:15 INR 1.1 01/25/18 20:15 APTT 26 SECONDS (21-34) 01/25/18 20:15
--- NOTE | 2018-01-30 02:28 | PN ---
DATE: 01/29/2018 SUBJECTIVE: The patient, Janet Mckenna has widely fluctuating blood sugar levels. She is afebrile. She is less delusional, less hallucinating. No nausea, vomiting. No fever. PHYSICAL EXAMINATION: VITAL SIGNS: Afebrile, blood pressure 153/80, pulse 64, respiratory rate 20, temperature 98.4. LUNGS: Bilaterally clear. No rales. No rhonchi. CARDIOVASCULAR SYSTEM: S1, S2, regular. No heave noted. ABDOMEN: Soft, nontender. Bowel sounds positive. CENTRAL NERVOUS SYSTEM: Awake, alert, oriented x3. LABORATORY DATA: Glucose 223, 438, more than 500. Sodium 133, potassium 3.6, chloride 100, bicarb 24, BUN 33, creatinine 1.2. ASSESSMENT: 1. Uncontrolled diabetes, negative diabetic ketoacidosis. 2. Psychosis. 3. Hypertension. 4. Chronic hepatitis B, status post liver transplant. PLAN: Continue current medications. Monitor the patient. Westley Hall MD
[2018-01-30] MEDS: (Novolin R) Insulin Human Regular 100 units/ml vial SC SCH ×7 (07:38→22:00)
[2018-01-30] MEDS: Sodium Chloride 0.9% 1,000 ML IV SCH ×2 (07:59→17:26)
[2018-01-30] MEDS ORDERED: (Novolin N) Insulin Human Isophane (NPH) 100 u/ml 10 ml vial SC SCH (08:00)
[2018-01-30 08:31] LABS: BASO % 0.6 % (0.0-2.0); EOS # 0.2 K/uL (0.0-0.7); EOS % 7.2 % (0.0-4.0); HEMOGLOBIN 11.1 g/dL (11.0-16.0); LYMPH # 0.6 K/uL (1.0-4.3); LYMPH % 27.8 % (20.0-40.0); MEAN CELL VOLUME 89.5 fL (81.0-99.0); MEAN CORPUSCULAR HEMOGLOBIN 29.3 pg (27.0-31.0); MEAN CORPUSCULAR HGB CONC 32.7 g/dL (33.0-37.0); MEAN PLATELET VOLUME 8.6 fL (7.2-11.7); MONO # 0.2 K/uL (0.0-0.8); MONO % 7.5 % (0.0-10.0); NEUT # 1.3 K/uL (1.8-7.0); NEUT % 56.9 % (50.0-75.0); NRBC % 0.1 % (0.0-2.0); RBC 3.8 Mil/uL (3.80-5.20); RED CELL DISTRIBUTION WIDTH 18.4 % (11.5-14.5); WHITE BLOOD COUNT 2.2 K/uL (4.8-10.8)
[2018-01-30] MEDS: (Novolin N) Insulin Human Isophane (NPH) 100 u/ml 10 ml vial SC SCH ×2 (08:50→22:00)
[2018-01-30 08:52] LABS: CALCIUM 9.6 mg/dl (8.6-10.4)
[2018-01-30] MEDS ORDERED: (Novolin R) Insulin Human Regular 100 units/ml vial SC SCH (10:00)
[2018-01-30] MEDS: Magnesium Oxide 400 mg Tab UD PO SCH ×2 (10:27→17:23)
[2018-01-30] MEDS: Vitamin B Complex/Vitamin C Tab PO SCH (10:27)
[2018-01-30] MEDS: POLYETHYLENE GLYCOL 3350 17 GM/Dose PACKET PO SCH (10:36)
--- NOTE | 2018-01-30 19:15 | CP.PCM.PN ---
Subjective - Subjective Subjective: dictated Objective - Vital Signs/Intake and Output Vital Signs (last 24 hours): Temp Pulse Resp BP Pulse Ox 98.2 F 77 20 128/69 97 01/30/18 16:00 01/30/18 16:00 01/30/18 16:00 01/30/18 16:00 01/30/18 16:00 Intake and Output: 01/30/18 01/31/18 18:59 06:59 Intake Total 750 Balance 750 - Medications Medications: Current Medications Clonidine HCl (Catapres) 0.1 mg PO BID [facility] Last Admin: 01/30/18 17:24 Dose: 0.1 mg Ergocalciferol (Drisdol 50,000 Intl Units Cap) 1 cap PO QWK [facility] Last Admin: 01/26/18 10:48 Dose: 1 cap Famotidine (Pepcid) 20 mg PO DAILY [facility] Last Admin: 01/30/18 10:27 Dose: 20 mg Gabapentin (Neurontin) 100 mg PO TID [facility] Last Admin: 01/30/18 17:27 Dose: 100 mg Heparin Sodium (Porcine) (Heparin) 5,000 units SC Q8 [facility] Last Admin: 01/30/18 13:28 Dose: 5,000 units Sodium Chloride (Sodium Chloride 0.9%) 1,000 mls @ 100 mls/hr IV .Q10H [facility] Last Admin: 01/30/18 17:26 Dose: 100 mls/hr Insulin Human NPH (Novolin N) 9 unit SC Q12H [facility] Last Admin: 01/30/18 08:50 Dose: 9 unit Insulin Human Regular (Novolin R) 0 unit SC ACHS [facility]; Protocol Last Admin: 01/30/18 16:30 Dose: Not Given Insulin Human Regular (Novolin R) 3 unit SC TIDCC [facility] Last Admin: 01/30/18 12:52 Dose: 3 unit Lorazepam (Ativan) 0.5 mg PO Q6 PRN PRN Reason: Anxiety Magnesium Oxide (Mag-Ox) 400 mg PO BID [facility] Last Admin: 01/30/18 17:23 Dose: 400 mg Polyethylene Glycol (Miralax) 17 gm PO DAILY [facility] Last Admin: 01/30/18 10:36 Dose: Not Given Quetiapine Fumarate (Seroquel) 25 mg PO BID [facility] Last Admin: 01/30/18 17:27 Dose: 25 mg Tacrolimus (Prograf Cap) 1 mg PO Q12 [facility] Last Admin: 01/30/18 10:28 Dose: 1 mg Tacrolimus (Prograf Cap) 0.5 mg PO Q12 [facility] Last Admin: 01/30/18 10:28 Dose: 0.5 mg Temazepam (Restoril) 30 mg PO HS PRN PRN Reason: Insomnia Last Admin: 01/29/18 22:28 Dose: 30 mg Vitamin B Complex/Vitamin C (Berocca) 1 tab PO DAILY [facility] Last Admin: 01/30/18 10:27 Dose: 1 tab - Labs Labs: 01/30/18 08:17 01/30/18 08:17 PT 12.5 SECONDS (9.7-12.2) H 01/25/18 20:15 INR 1.1 01/25/18 20:15 APTT 26 SECONDS (21-34) 01/25/18 20:15
--- NOTE | 2018-01-30 19:15 | CP.PCM.PN ---
Subjective - Subjective Subjective: dictated Objective - Vital Signs/Intake and Output Vital Signs (last 24 hours): Temp Pulse Resp BP Pulse Ox 98.2 F 77 20 128/69 97 01/30/18 16:00 01/30/18 16:00 01/30/18 16:00 01/30/18 16:00 01/30/18 16:00 Intake and Output: 01/30/18 01/31/18 18:59 06:59 Intake Total 750 Balance 750 - Medications Medications: Current Medications Clonidine HCl (Catapres) 0.1 mg PO BID [facility] Last Admin: 01/30/18 17:24 Dose: 0.1 mg Ergocalciferol (Drisdol 50,000 Intl Units Cap) 1 cap PO QWK [facility] Last Admin: 01/26/18 10:48 Dose: 1 cap Famotidine (Pepcid) 20 mg PO DAILY [facility] Last Admin: 01/30/18 10:27 Dose: 20 mg Gabapentin (Neurontin) 100 mg PO TID [facility] Last Admin: 01/30/18 17:27 Dose: 100 mg Heparin Sodium (Porcine) (Heparin) 5,000 units SC Q8 [facility] Last Admin: 01/30/18 13:28 Dose: 5,000 units Sodium Chloride (Sodium Chloride 0.9%) 1,000 mls @ 100 mls/hr IV .Q10H [facility] Last Admin: 01/30/18 17:26 Dose: 100 mls/hr Insulin Human NPH (Novolin N) 9 unit SC Q12H [facility] Last Admin: 01/30/18 08:50 Dose: 9 unit Insulin Human Regular (Novolin R) 0 unit SC ACHS [facility]; Protocol Last Admin: 01/30/18 16:30 Dose: Not Given Insulin Human Regular (Novolin R) 3 unit SC TIDCC [facility] Last Admin: 01/30/18 12:52 Dose: 3 unit Lorazepam (Ativan) 0.5 mg PO Q6 PRN PRN Reason: Anxiety Magnesium Oxide (Mag-Ox) 400 mg PO BID [facility] Last Admin: 01/30/18 17:23 Dose: 400 mg Polyethylene Glycol (Miralax) 17 gm PO DAILY [facility] Last Admin: 01/30/18 10:36 Dose: Not Given Quetiapine Fumarate (Seroquel) 25 mg PO BID [facility] Last Admin: 01/30/18 17:27 Dose: 25 mg Tacrolimus (Prograf Cap) 1 mg PO Q12 [facility] Last Admin: 01/30/18 10:28 Dose: 1 mg Tacrolimus (Prograf Cap) 0.5 mg PO Q12 [facility] Last Admin: 01/30/18 10:28 Dose: 0.5 mg Temazepam (Restoril) 30 mg PO HS PRN PRN Reason: Insomnia Last Admin: 01/29/18 22:28 Dose: 30 mg Vitamin B Complex/Vitamin C (Berocca) 1 tab PO DAILY [facility] Last Admin: 01/30/18 10:27 Dose: 1 tab - Labs Labs: 01/30/18 08:17 01/30/18 08:17 PT 12.5 SECONDS (9.7-12.2) H 01/25/18 20:15 INR 1.1 01/25/18 20:15 APTT 26 SECONDS (21-34) 01/25/18 20:15
--- NOTE | 2018-01-30 21:26 | CP.PCM.CON ---
History of Present Illness - History of Present Illness History of Present Illness: hypoglycemia Past Patient History - Infectious Disease Hx of Infectious Diseases: None - Past Medical History & Family History Past Medical History?: Yes - Past Social History Smoking Status: Never Smoked - CARDIAC Hx Cardiac Disorders: Yes Hx Hypertension: Yes - PULMONARY Hx Chronic Obstructive Pulmonary Disease (COPD): (DENIES) - NEUROLOGICAL Hx Neurological Disorder: No - HEENT Hx HEENT Problems: Yes Hx Blind: Yes (Right eye blind) - RENAL Hx Chronic Kidney Disease: No - ENDOCRINE/METABOLIC Hx Diabetes Mellitus Type 2: Yes - HEMATOLOGICAL/ONCOLOGICAL Hx Sickle Cell Disease: No - INTEGUMENTARY Hx Dermatological Problems: No - MUSCULOSKELETAL/RHEUMATOLOGICAL Hx Arthritis: Yes (L KNEE; BACK) - GASTROINTESTINAL Hx Gastritis: Yes - GENITOURINARY/GYNECOLOGICAL Hx Genitourinary Disorders: No - PSYCHIATRIC Hx Anxiety: Yes Hx Bipolar Disorder: Yes Hx Depression: Yes Hx Substance Use: No - SURGICAL HISTORY Hx Tonsillectomy: No - ANESTHESIA Hx Anesthesia: Yes Hx Anesthesia Reactions: No Hx Malignant Hyperthermia: No Meds Allergies/Adverse Reactions: Allergies Allergy/AdvReac Type Severity Reaction Status Date / Time No Known Allergies Allergy Verified 01/25/18 17:44 - Medications Medications: Current Medications Clonidine HCl (Catapres) 0.1 mg PO BID [facility] Last Admin: 01/30/18 17:24 Dose: 0.1 mg Ergocalciferol (Drisdol 50,000 Intl Units Cap) 1 cap PO QWK [facility] Last Admin: 01/26/18 10:48 Dose: 1 cap Famotidine (Pepcid) 20 mg PO DAILY [facility] Last Admin: 01/30/18 10:27 Dose: 20 mg Gabapentin (Neurontin) 100 mg PO TID [facility] Last Admin: 01/30/18 17:27 Dose: 100 mg Heparin Sodium (Porcine) (Heparin) 5,000 units SC Q8 [facility] Last Admin: 01/30/18 13:28 Dose: 5,000 units Sodium Chloride (Sodium Chloride 0.9%) 1,000 mls @ 100 mls/hr IV .Q10H [facility] Last Admin: 01/30/18 17:26 Dose: 100 mls/hr Insulin Human NPH (Novolin N) 9 unit SC Q12H [facility] Last Admin: 01/30/18 08:50 Dose: 9 unit Insulin Human Regular (Novolin R) 0 unit SC ACHS [facility]; Protocol Last Admin: 01/30/18 16:30 Dose: Not Given Insulin Human Regular (Novolin R) 3 unit SC TIDCC [facility] Last Admin: 01/30/18 12:52 Dose: 3 unit Lorazepam (Ativan) 0.5 mg PO Q6 PRN PRN Reason: Anxiety Magnesium Oxide (Mag-Ox) 400 mg PO BID [facility] Last Admin: 01/30/18 17:23 Dose: 400 mg Polyethylene Glycol (Miralax) 17 gm PO DAILY [facility] Last Admin: 01/30/18 10:36 Dose: Not Given Quetiapine Fumarate (Seroquel) 25 mg PO BID [facility] Last Admin: 01/30/18 17:27 Dose: 25 mg Tacrolimus (Prograf Cap) 1 mg PO Q12 [facility] Last Admin: 01/30/18 10:28 Dose: 1 mg Tacrolimus (Prograf Cap) 0.5 mg PO Q12 [facility] Last Admin: 01/30/18 10:28 Dose: 0.5 mg Temazepam (Restoril) 30 mg PO HS PRN PRN Reason: Insomnia Last Admin: 01/29/18 22:28 Dose: 30 mg Vitamin B Complex/Vitamin C (Berocca) 1 tab PO DAILY [facility] Last Admin: 01/30/18 10:27 Dose: 1 tab Results - Vital Signs Recent Vital Signs: Last Vital Signs Temp 98.2 F 01/30/18 16:00 Pulse 77 01/30/18 16:00 Resp 20 01/30/18 16:00 BP 128/69 01/30/18 16:00 Pulse Ox 97 01/30/18 16:00 - Labs Result Diagrams: 01/30/18 08:17 01/30/18 08:17 Labs: Laboratory Results - last 24 hr 01/30/18 01/30/18 08:17 08:17 WBC 2.2 L RBC 3.80 Hgb 11.1 Hct 34.1 MCV 89.5 D MCH 29.3 MCHC 32.7 L RDW 18.4 H Plt Count 90 L MPV 8.6 Neut % (Auto) 56.9 Lymph % (Auto) 27.8 [place] % (Auto) 7.5 Eos % (Auto) 7.2 H Baso % (Auto) 0.6 Neut # (Auto) 1.3 L Lymph # (Auto) 0.6 L [place] # (Auto) 0.2 Eos # (Auto) 0.2 Baso # (Auto) 0.0 Sodium 131 L Potassium 5.1 Chloride 98 Carbon Dioxide 22 Anion Gap 16 BUN 37 H Creatinine 1.2 Est GFR ( Amer) 53 Est GFR (Non-Af Amer) 44 Random Glucose 596 H* D Calcium 9.6 TSH 3rd Generation 3.19 Assessment & Plan (1) Hypoglycemia associated with diabetes Assessment and Plan: ssessment & Plan: Endocrine consult Ms. Mckenna is 77 y/o known to endocrine , admitted for sever hypoglycemia with altered mental status , on immunosupressive thyrapy for liver trasplant as per pt. has DM > 30 years (-) neuropathy , (-) retinopathy , (-) nephropathy (-) CAD (-) PVD as per took her Humalog 6 units & ate very good lunch not sure why sugar dropped @ 2pm , start to shake & called her daughter to call the police when found with glucose 37 was brought to the hospital , she thinks toxic effect of drugs her neighbour use upstairs ! blood glucose log : 200-500 last documented ac dinner 107 , eating well 01/29 37-500 Allergy NKDA Past medical history: hep c Past surgical history: s/p liver trasplant & CS Psychiatry history: (+) psychiatry disorder Social history : denies smoking , ETOH use or illicit drug use Family history : father with diabetes ROS: Constitutional: denies fever,(+) tiredness/weakness. HEENT: denies earache, change in voice .Respiratory: (-) cough, sob . CVS :no chest pain, no palpitations . Abdomen: no abdominal pain, no nausea /vomiting, no change bowel movement. LINE PULLER : denies light-headedness, dizziness. Extremities: no edema, no tremors. Skin: no itching, no rash Physical exam Well-developed AAO x3 , ,frail , NAD VSS HEENT: norm cephalic, atraumatic, no lid lag , no exophthalmos NECK: supple, no palpable lymphadenopathy THYROID: no palpable thyromegaly, not tender CHEST: fair air entry, bilateral, CVS: S1,S2 ABDOMEN: bowel sound present, benign, obese, no wide purple striae , no bruises EXTREMITIES: no edema, clubbing or cyanosis, no palpable hand tremors Skin: acanthosis nigricans lab: 11/2017 a1c 8.8 Assessment - sever symptomatic hypoglycemia uncontrolled IDDM ( brittle ) altered metal status s/p liver transplant on immunesuppressive therapy plan change NPH to 9 units bid @ 8am & 8pm d/c Novolog start Novoloin R low dose coverage, no 3 am coverage start Novolin R 3 units tid with meals if eat more than 60% of the meal bed time snack obtain a1c & tsh nurse in charge was contacted today 01/30 for last glucose , bed time glucose on the process to get check will call back with result Thank you for allowing me to participate in the care of the patient, we will follow with you. Jazmín Roy # [phone] office Fridays & Saturdays address: [address] [place] [address] ,phone # [phone] ,FAX [phone] Status: Acute (2) Diabetes mellitus, insulin dependent (IDDM), uncontrolled Status: Acute (3) Altered mental status Status: Acute
--- NOTE | 2018-01-31 03:38 | PN ---
DATE: 01/30/2018 SUBJECTIVE: Janet Mckenna keeps having fluctuating blood sugars. She is noncompliant. At times, she refuses medication. At times, she refuses AccuCheks, and at times, she takes her medications. She is not anxious. She is calm. She is quite. She is on medication. No fever. No chills. PHYSICAL EXAMINATION: VITAL SIGNS: Blood pressure 128/69, pulse 77, respiratory rate 20, and temperature 98.2. LUNGS: Clear. CARDIOVASCULAR SYSTEM: S1, S2, regular. ABDOMEN: Soft. ASSESSMENT: 1. Psychosis with delusional hallucination and agitation. 2. Uncontrolled diabetes due to noncompliance while in the hospital. 3. Hypertension. 4. Hepatitis B with liver transplant. PLAN: Medical management. Monitor the patient. Westley Hall MD
[2018-01-31] MEDS: (Novolin R) Insulin Human Regular 100 units/ml vial SC SCH ×7 (07:50→21:19)
[2018-01-31] MEDS: (Novolin N) Insulin Human Isophane (NPH) 100 u/ml 10 ml vial SC SCH (07:51)
[2018-01-31 09:56] LABS: CALCIUM 9.7 mg/dl (8.6-10.4)
[2018-01-31] MEDS: Magnesium Oxide 400 mg Tab UD PO SCH ×2 (10:24→17:36)
[2018-01-31] MEDS: Vitamin B Complex/Vitamin C Tab PO SCH (10:24)
[2018-01-31] MEDS: POLYETHYLENE GLYCOL 3350 17 GM/Dose PACKET PO SCH (10:26)
[2018-01-31] MEDS: Sodium Chloride 0.9% 1,000 ML IV SCH (14:32)
--- NOTE | 2018-01-31 19:37 | CP.PCM.PN ---
Subjective - Date & Time of Evaluation Date of Evaluation: 01/31/18 Time of Evaluation: 19:31 - Subjective Subjective: hypoglycemia Objective - Vital Signs/Intake and Output Vital Signs (last 24 hours): Temp Pulse Resp BP Pulse Ox 98.2 F 83 20 144/72 98 01/31/18 16:00 01/31/18 16:00 01/31/18 16:00 01/31/18 16:00 01/31/18 16:00 Intake and Output: 01/31/18 02/01/18 18:59 06:59 Intake Total 50 Balance 50 - Medications Medications: Current Medications Clonidine HCl (Catapres) 0.1 mg PO BID [facility] Last Admin: 01/31/18 17:36 Dose: 0.1 mg Ergocalciferol (Drisdol 50,000 Intl Units Cap) 1 cap PO QWK [facility] Last Admin: 01/26/18 10:48 Dose: 1 cap Famotidine (Pepcid) 20 mg PO DAILY [facility] Last Admin: 01/31/18 10:24 Dose: 20 mg Gabapentin (Neurontin) 100 mg PO TID [facility] Last Admin: 01/31/18 17:36 Dose: 100 mg Heparin Sodium (Porcine) (Heparin) 5,000 units SC Q8 [facility] Last Admin: 01/31/18 13:38 Dose: 5,000 units Sodium Chloride (Sodium Chloride 0.9%) 1,000 mls @ 100 mls/hr IV .Q10H [facility] Last Admin: 01/31/18 14:32 Dose: 100 mls/hr Insulin Human NPH (Novolin N) 9 unit SC Q12H [facility] Last Admin: 01/31/18 07:51 Dose: 9 unit Insulin Human Regular (Novolin R) 0 unit SC ACHS [facility]; Protocol Last Admin: 01/31/18 16:30 Dose: 3 unit Insulin Human Regular (Novolin R) 3 unit SC TIDCC [facility] Last Admin: 01/31/18 17:31 Dose: 3 unit Lorazepam (Ativan) 0.5 mg PO Q6 PRN PRN Reason: Anxiety Magnesium Oxide (Mag-Ox) 400 mg PO BID [facility] Last Admin: 01/31/18 17:36 Dose: 400 mg Polyethylene Glycol (Miralax) 17 gm PO DAILY [facility] Last Admin: 01/31/18 10:26 Dose: Not Given Quetiapine Fumarate (Seroquel) 25 mg PO BID [facility] Last Admin: 01/31/18 17:36 Dose: 25 mg Tacrolimus (Prograf Cap) 1 mg PO Q12 [facility] Last Admin: 01/31/18 10:25 Dose: 1 mg Tacrolimus (Prograf Cap) 0.5 mg PO Q12 [facility] Last Admin: 01/31/18 10:25 Dose: 0.5 mg Temazepam (Restoril) 30 mg PO HS PRN PRN Reason: Insomnia Last Admin: 01/29/18 22:28 Dose: 30 mg Vitamin B Complex/Vitamin C (Berocca) 1 tab PO DAILY [facility] Last Admin: 01/31/18 10:24 Dose: 1 tab - Labs Labs: 01/30/18 08:17 01/31/18 09:19 PT 12.5 SECONDS (9.7-12.2) H 01/25/18 20:15 INR 1.1 01/25/18 20:15 APTT 26 SECONDS (21-34) 01/25/18 20:15 Assessment and Plan (1) Hypoglycemia associated with diabetes Assessment & Plan: Endocrine consult f/u Ms. Mckenna is 77 y/o known to endocrine , admitted for sever hypoglycemia with altered mental status , on immunosupressive thyrapy for liver trasplant as per pt. has DM > 30 years (-) neuropathy , (-) retinopathy , (-) nephropathy (-) CAD (-) PVD as per took her Humalog 6 units & ate very good lunch not sure why sugar dropped @ 2pm , start to shake & called her daughter to call the police when found with glucose 37 was brought to the hospital , she thinks toxic effect of drugs her neighbour use upstairs ! blood glucose log : [phone],no hypoglycemia,declines NPH lastnight even glucose was@190 Allergy NKDA Past medical history: hep c Past surgical history: s/p liver trasplant & CS Psychiatry history: (+) psychiatry disorder Social history : denies smoking , ETOH use or illicit drug use Family history : father with diabetes ROS: Constitutional: denies fever,(+) tiredness/weakness. HEENT: denies earache, change in voice .Respiratory: (-) cough, sob . CVS :no chest pain, no palpitations . Abdomen: no abdominal pain, no nausea /vomiting, no change bowel movement. [employer] A[employer]LYST : denies light-headedness, dizziness. Extremities: no edema, no tremors. Skin: no itching, no rash Physical exam Well-developed AAO x3 , ,frail , NAD VSS HEENT: norm cephalic, atraumatic, no lid lag , no exophthalmos NECK: supple, no palpable lymphadenopathy THYROID: no palpable thyromegaly, not tender CHEST: fair air entry, bilateral, CVS: S1,S2 ABDOMEN: bowel sound present, benign, obese, no wide purple striae , no bruises EXTREMITIES: no edema, clubbing or cyanosis, no palpable hand tremors Skin: acanthosis nigricans lab: 01/2018 a1c 9 ,TSH 3.1 11/2017 a1c 8.8 Assessment - sever symptomatic hypoglycemia uncontrolled IDDM ( brittle ) altered metal status s/p liver transplant on immunesuppressive therapy plan change NPH to 11units bid @ 8am & 8pm continue Novoloin R low dose coverage, no 3 am coverage increase Novolin R 5 units tid with meals if eat more than 60% of the meal bed time snack we will follow with you. Jazmín Roy # [phone] office Fridays & Saturdays address: [address] [place] [address] ,phone # [phone] ,FAX [phone] Status: Acute (2) Diabetes mellitus, insulin dependent (IDDM), uncontrolled Status: Acute (3) Altered mental status Status: Acute
--- NOTE | 2018-01-31 22:45 | CP.PCM.PN ---
Subjective - Subjective Subjective: dictated Objective - Vital Signs/Intake and Output Vital Signs (last 24 hours): Temp Pulse Resp BP Pulse Ox 98.2 F 83 20 144/72 98 01/31/18 16:00 01/31/18 16:00 01/31/18 16:00 01/31/18 16:00 01/31/18 16:00 Intake and Output: 01/31/18 02/01/18 18:59 06:59 Intake Total 50 Balance 50 - Medications Medications: Current Medications Clonidine HCl (Catapres) 0.1 mg PO BID [facility] Last Admin: 01/31/18 17:36 Dose: 0.1 mg Ergocalciferol (Drisdol 50,000 Intl Units Cap) 1 cap PO QWK [facility] Last Admin: 01/26/18 10:48 Dose: 1 cap Famotidine (Pepcid) 20 mg PO DAILY [facility] Last Admin: 01/31/18 10:24 Dose: 20 mg Gabapentin (Neurontin) 100 mg PO TID [facility] Last Admin: 01/31/18 17:36 Dose: 100 mg Heparin Sodium (Porcine) (Heparin) 5,000 units SC Q8 [facility] Last Admin: 01/31/18 22:26 Dose: 5,000 units Sodium Chloride (Sodium Chloride 0.9%) 1,000 mls @ 100 mls/hr IV .Q10H [facility] Last Admin: 01/31/18 14:32 Dose: 100 mls/hr Insulin Human NPH (Novolin N) 11 unit SC BIDBS [facility] Insulin Human Regular (Novolin R) 0 unit SC ACHS [facility]; Protocol Last Admin: 01/31/18 21:19 Dose: 3 unit Insulin Human Regular (Novolin R) 5 unit SC TIDCC [facility] Lorazepam (Ativan) 0.5 mg PO Q6 PRN PRN Reason: Anxiety Magnesium Oxide (Mag-Ox) 400 mg PO BID [facility] Last Admin: 01/31/18 17:36 Dose: 400 mg Polyethylene Glycol (Miralax) 17 gm PO DAILY [facility] Last Admin: 01/31/18 10:26 Dose: Not Given Quetiapine Fumarate (Seroquel) 25 mg PO BID [facility] Last Admin: 01/31/18 17:36 Dose: 25 mg Tacrolimus (Prograf Cap) 1 mg PO Q12 [facility] Last Admin: 01/31/18 21:46 Dose: 1 mg Tacrolimus (Prograf Cap) 0.5 mg PO Q12 [facility] Last Admin: 01/31/18 21:46 Dose: 0.5 mg Temazepam (Restoril) 30 mg PO HS PRN PRN Reason: Insomnia Last Admin: 01/31/18 21:46 Dose: 30 mg Vitamin B Complex/Vitamin C (Berocca) 1 tab PO DAILY [facility] Last Admin: 01/31/18 10:24 Dose: 1 tab - Labs Labs: 01/30/18 08:17 01/31/18 09:19 PT 12.5 SECONDS (9.7-12.2) H 01/25/18 20:15 INR 1.1 01/25/18 20:15 APTT 26 SECONDS (21-34) 01/25/18 20:15
--- NOTE | 2018-02-01 02:32 | PN ---
DATE: 01/31/2018 SUBJECTIVE: The patient, Bala, is afebrile. No shortness of breath. No chest pain. Blood sugars have been high. The patient has been noncompliant with diet and medication while in the hospital. PHYSICAL EXAMINATION: VITAL SIGNS: BP 144/72, pulse 83, respiratory rate 20, temperature 98.2. LUNGS: Clear. CARDIOVASCULAR SYSTEM: S1 and S2 are regular. ABDOMEN: Soft and nontender. Bowel sounds are positive. ASSESSMENT: 1. Uncontrolled diabetes due to noncompliance. 2. Anxiety, depression, psychosis. 3. Hypertension. 4. Diabetes. PLAN: Monitor the patient. Endocrinology followup. Westley Hall MD
[2018-02-01] MEDS: (Novolin R) Insulin Human Regular 100 units/ml vial SC SCH ×7 (08:14→21:56)
[2018-02-01] MEDS: (Novolin N) Insulin Human Isophane (NPH) 100 u/ml 10 ml vial SC SCH ×2 (08:15→16:32)
[2018-02-01] MEDS ORDERED: Sodium Chloride 0.9% 1,000 ML IV SCH (09:30)
[2018-02-01] MEDS: Vitamin B Complex/Vitamin C Tab PO SCH (09:56)
[2018-02-01] MEDS: Magnesium Oxide 400 mg Tab UD PO SCH ×2 (09:56→18:14)
[2018-02-01] MEDS: POLYETHYLENE GLYCOL 3350 17 GM/Dose PACKET PO SCH (10:04)
[2018-02-01 11:54] LABS: CALCIUM 9.6 mg/dl (8.6-10.4)
[2018-02-01] MEDS: Sodium Chloride 0.9% 1,000 ML IV SCH ×2 (16:32→23:19)
--- NOTE | 2018-02-01 23:14 | CP.PCM.PN ---
Subjective - Subjective Subjective: dictated Objective - Vital Signs/Intake and Output Vital Signs (last 24 hours): Temp Pulse Resp BP Pulse Ox 98.9 F 71 20 127/71 95 02/01/18 15:00 02/01/18 15:00 02/01/18 15:00 02/01/18 15:00 02/01/18 15:00 Intake and Output: 02/01/18 02/02/18 18:59 06:59 Intake Total 1700 1200 Balance 1700 1200 - Medications Medications: Current Medications Clonidine HCl (Catapres) 0.1 mg PO BID [facility] Last Admin: 02/01/18 18:15 Dose: 0.1 mg Ergocalciferol (Drisdol 50,000 Intl Units Cap) 1 cap PO QWK [facility] Last Admin: 01/26/18 10:48 Dose: 1 cap Famotidine (Pepcid) 20 mg PO DAILY [facility] Last Admin: 02/01/18 09:56 Dose: 20 mg Gabapentin (Neurontin) 100 mg PO TID [facility] Last Admin: 02/01/18 18:15 Dose: 100 mg Heparin Sodium (Porcine) (Heparin) 5,000 units SC Q8 [facility] Last Admin: 02/01/18 21:58 Dose: 5,000 units Insulin Human NPH (Novolin N) 11 unit SC BIDBS [facility] Last Admin: 02/01/18 16:32 Dose: Not Given Insulin Human Regular (Novolin R) 0 unit SC ACHS [facility]; Protocol Last Admin: 02/01/18 21:56 Dose: Not Given Insulin Human Regular (Novolin R) 5 unit SC TIDCC [facility] Last Admin: 02/01/18 16:34 Dose: Not Given Lorazepam (Ativan) 0.5 mg PO Q6 PRN PRN Reason: Anxiety Magnesium Oxide (Mag-Ox) 400 mg PO BID [facility] Last Admin: 02/01/18 18:14 Dose: 400 mg Polyethylene Glycol (Miralax) 17 gm PO DAILY [facility] Last Admin: 02/01/18 10:04 Dose: Not Given Quetiapine Fumarate (Seroquel) 25 mg PO BID [facility] Last Admin: 02/01/18 18:14 Dose: 25 mg Tacrolimus (Prograf Cap) 1 mg PO Q12 [facility] Last Admin: 02/01/18 21:58 Dose: 1 mg Tacrolimus (Prograf Cap) 0.5 mg PO Q12 [facility] Last Admin: 02/01/18 21:58 Dose: 0.5 mg Temazepam (Restoril) 30 mg PO HS PRN PRN Reason: Insomnia Last Admin: 01/31/18 21:46 Dose: 30 mg Vitamin B Complex/Vitamin C (Berocca) 1 tab PO DAILY [facility] Last Admin: 02/01/18 09:56 Dose: 1 tab - Labs Labs: 01/30/18 08:17 02/01/18 11:21 PT 12.5 SECONDS (9.7-12.2) H 01/25/18 20:15 INR 1.1 01/25/18 20:15 APTT 26 SECONDS (21-34) 01/25/18 20:15
--- NOTE | 2018-02-02 03:59 | PN ---
DATE: 02/01/2018 SUBJECTIVE: The patient, Bala, is more compliant. She is feeling better. She is for subacute rehab. PHYSICAL EXAMINATION: VITAL SIGNS: BP 127/71, pulse 71, respiratory rate 20, temperature 98.9. LUNGS: Clear. CARDIOVASCULAR SYSTEM: S1 and S2 are regular. ABDOMEN: Soft. ASSESSMENT: 1. Depression. 2. Uncontrolled diabetes. 3. Hypertension. 4. Psychosis. PLAN: Continue current medications. Accu-Chek sliding scale. Westley Hall MD
[2018-02-02] MEDS: (Novolin N) Insulin Human Isophane (NPH) 100 u/ml 10 ml vial SC SCH ×2 (07:59→16:57)
[2018-02-02] MEDS: (Novolin R) Insulin Human Regular 100 units/ml vial SC SCH ×6 (07:59→17:01)
[2018-02-02] MEDS: Ergocalciferol 50,000 Intl Units Cap PO SCH (09:46)
[2018-02-02] MEDS: Magnesium Oxide 400 mg Tab UD PO SCH ×2 (09:46→17:00)
[2018-02-02] MEDS: Vitamin B Complex/Vitamin C Tab PO SCH (09:46)
[2018-02-02] MEDS: POLYETHYLENE GLYCOL 3350 17 GM/Dose PACKET PO SCH (09:47)
--- NOTE | 2018-02-02 17:03 | CP.PCM.PN ---
Subjective - Date & Time of Evaluation Date of Evaluation: 02/02/18 Time of Evaluation: 12:00 - Subjective Subjective: patient seen today denies any abdominal pain, N/V/d , no overnight events reported by RN BS - controlled with current insulin regiment No hypoglycemic event noted labs and vss reviewed - stable Objective - Vital Signs/Intake and Output Vital Signs (last 24 hours): Temp Pulse Resp BP Pulse Ox 97.3 F L 96 H 20 123/60 96 02/02/18 08:16 02/02/18 08:16 02/02/18 08:16 02/02/18 08:16 02/02/18 08:16 Intake and Output: 02/02/18 02/02/18 06:59 18:59 Intake Total 1200 500 Balance 1200 500 - Medications Medications: Current Medications Clonidine HCl (Catapres) 0.1 mg PO BID [facility] Last Admin: 02/02/18 09:46 Dose: 0.1 mg Ergocalciferol (Drisdol 50,000 Intl Units Cap) 1 cap PO QWK [facility] Last Admin: 02/02/18 09:46 Dose: 1 cap Famotidine (Pepcid) 20 mg PO DAILY [facility] Last Admin: 02/02/18 09:46 Dose: 20 mg Gabapentin (Neurontin) 100 mg PO TID [facility] Last Admin: 02/02/18 13:07 Dose: 100 mg Insulin Human NPH (Novolin N) 11 unit SC BIDBS [facility] Last Admin: 02/02/18 16:57 Dose: 11 units Insulin Human Regular (Novolin R) 0 unit SC ACHS [facility]; Protocol Last Admin: 02/02/18 11:31 Dose: 5 unit Insulin Human Regular (Novolin R) 5 unit SC TIDCC [facility] Last Admin: 02/02/18 16:58 Dose: 5 units Lorazepam (Ativan) 0.5 mg PO Q6 PRN PRN Reason: Anxiety Magnesium Oxide (Mag-Ox) 400 mg PO BID [facility] Last Admin: 02/02/18 09:46 Dose: 400 mg Polyethylene Glycol (Miralax) 17 gm PO DAILY [facility] Last Admin: 02/02/18 09:47 Dose: Not Given Quetiapine Fumarate (Seroquel) 25 mg PO BID [facility] Last Admin: 02/02/18 09:47 Dose: 25 mg Tacrolimus (Prograf Cap) 1 mg PO Q12 [facility] Last Admin: 02/02/18 10:33 Dose: 1 mg Tacrolimus (Prograf Cap) 0.5 mg PO Q12 [facility] Last Admin: 02/02/18 09:46 Dose: 0.5 mg Temazepam (Restoril) 30 mg PO HS PRN PRN Reason: Insomnia Last Admin: 02/01/18 23:17 Dose: 30 mg Vitamin B Complex/Vitamin C (Berocca) 1 tab PO DAILY [facility] Last Admin: 02/02/18 09:46 Dose: 1 tab - Labs Labs: 01/30/18 08:17 02/01/18 11:21 PT 12.5 SECONDS (9.7-12.2) H 01/25/18 20:15 INR 1.1 01/25/18 20:15 APTT 26 SECONDS (21-34) 01/25/18 20:15 Assessment and Plan - Assessment and Plan (Free Text) Assessment: A/P 77 yr old female with ppmhx of Bipolar Disorder, CAD, Depression, Diabetes, Deep Vein Thrombosis, Gastritis, HTN, and liver transplant admitted with altered mental status , psychosis and hyperglycemia Dr. Graham consulted for psychosis and started on seraquil and patient mentation improved Patient referred to [facility] and denied by the facilities seen by Dr. Hall, cleared for discharge home today and f.u with Dr. hall office in 1 week CM discussed discharge plan with daughter and she agrees with plan
[2018-02-02 17:35] VITALS: BP 118/64; PULSE 87; TEMP 98.9; O2SAT 97
--- NOTE | 2018-02-02 23:00 | CP.PCM.DIS ---
Provider - Provider Date of Admission: 01/25/18 18:57 Attending physician: Westley Hall MD Hospital Course - Lab Results Lab Results: Most Recent Lab Values WBC 2.2 K/uL (4.8-10.8) L 01/30/18 08:17 RBC 3.80 Mil/uL (3.80-5.20) 01/30/18 08:17 Hgb 11.1 g/dL (11.0-16.0) 01/30/18 08:17 Hct 34.1 % (34.0-47.0) 01/30/18 08:17 MCV 89.5 fL (81.0-99.0) D 01/30/18 08:17 MCH 29.3 pg (27.0-31.0) 01/30/18 08:17 MCHC 32.7 g/dL (33.0-37.0) L 01/30/18 08:17 RDW 18.4 % (11.5-14.5) H 01/30/18 08:17 Plt Count 90 K/uL (130-400) L 01/30/18 08:17 MPV 8.6 fL (7.2-11.7) 01/30/18 08:17 Neut % (Auto) 56.9 % (50.0-75.0) 01/30/18 08:17 Lymph % (Auto) 27.8 % (20.0-40.0) 01/30/18 08:17 [place] % (Auto) 7.5 % (0.0-10.0) 01/30/18 08:17 Eos % (Auto) 7.2 % (0.0-4.0) H 01/30/18 08:17 Baso % (Auto) 0.6 % (0.0-2.0) 01/30/18 08:17 Neut # (Auto) 1.3 K/uL (1.8-7.0) L 01/30/18 08:17 Lymph # (Auto) 0.6 K/uL (1.0-4.3) L 01/30/18 08:17 [place] # (Auto) 0.2 K/uL (0.0-0.8) 01/30/18 08:17 Eos # (Auto) 0.2 K/uL (0.0-0.7) 01/30/18 08:17 Baso # (Auto) 0.0 K/uL (0.0-0.2) 01/30/18 08:17 Differential Comment 01/27/18 07:33 PT 12.5 SECONDS (9.7-12.2) H 01/25/18 20:15 INR 1.1 01/25/18 20:15 APTT 26 SECONDS (21-34) 01/25/18 20:15 Sodium 133 mmol/L (132-148) 02/01/18 11:21 Potassium 4.5 mmol/L (3.6-5.2) 02/01/18 11:21 Chloride 99 mmol/L (98-107) 02/01/18 11:21 Carbon Dioxide 21 mmol/L (22-30) L 02/01/18 11:21 Anion Gap 18 (10-20) 02/01/18 11:21 BUN 28 mg/dL (7-17) H 02/01/18 11:21 Creatinine 1.1 mg/dL (0.7-1.2) 02/01/18 11:21 Est GFR ( Amer) 58 02/01/18 11:21 Est GFR (Non-Af Amer) 48 02/01/18 11:21 POC Glucose (mg/dL) 157 mg/dL (65-110) H 02/02/18 16:38 Random Glucose 329 mg/dL (65-105) H 02/01/18 11:21 Hemoglobin A1c 9.0 % (4.2-6.5) H 01/30/18 08:17 Calcium 9.6 mg/dl (8.6-10.4) 02/01/18 11:21 Phosphorus 3.4 mg/dL (2.5-4.5) 01/27/18 07:33 Magnesium 1.7 mg/dL (1.6-2.3) 01/27/18 07:33 Total Bilirubin 0.7 mg/dL (0.2-1.3) 01/27/18 07:33 AST 76 U/L (14-36) H 01/27/18 07:33 ALT 45 U/L (9-52) 01/27/18 07:33 Alkaline Phosphatase 293 U/L (38-126) H 11/07/18 07:33 Ammonia 18 umol/L (9-33) 01/25/18 18:21 Troponin I < 0.0120 ng/mL (0.00-0.120) 01/25/18 18:21 Total Protein 7.3 g/dL (6.3-8.3) 01/27/18 07:33 Albumin 3.5 g/dL (3.5-5.0) 01/27/18 07:33 Globulin 3.7 gm/dL (2.2-3.9) 01/27/18 07:33 Albumin/Globulin Ratio 0.9 (1.0-2.1) L 01/27/18 07:33 TSH 3rd Generation 3.19 mIU/L (0.46-4.68) 01/30/18 08:17 Urine Color Straw (YELLOW) 01/26/18 07:20 Urine Clarity Clear (Clear) 01/26/18 07:20 Urine pH 7.0 (5.0-8.0) 01/26/18 07:20 Ur Specific [place] 1.008 (1.003-1.030) 01/26/18 07:20 Urine Protein Negative mg/dL (NEGATIVE) 01/26/18 07:20 Urine Glucose (UA) 2+ mg/dL (Normal) H 01/26/18 07:20 Urine Ketones Negative mg/dL (NEGATIVE) 01/26/18 07:20 Urine Blood Negative (NEGATIVE) 01/26/18 07:20 Urine Nitrate Negative (NEGATIVE) 01/26/18 07:20 Urine Bilirubin Negative (NEGATIVE) 01/26/18 07:20 Urine Urobilinogen Normal mg/dL (0.2-1.0) 01/26/18 07:20 Ur Leukocyte Esterase Neg Zenaida/uL (Negative) 01/26/18 07:20 Urine WBC (Auto) 1 /hpf (0-5) 01/26/18 07:20 Discharge Plan - Discharge Medications Prescriptions: cloNIDine [Catapres] 0.1 mg PO BID #60 tab Ergocalciferol [Drisdol 50,000 Intl Units Cap] 1 cap PO QWK #7 cap Polyethylene Glycol 3350 [Miralax] 17 gm PO DAILY #30 packet Gabapentin [Neurontin] 100 mg PO TID #90 cap Insulin Human Isophane (NPH) [Novolin N] 11 unit SC BIDBS 30 Days unit Insulin Human Regular [Novolin R] 5 unit SC TIDCC 30 Days unit Famotidine [Pepcid] 20 mg PO DAILY #30 tab Tacrolimus [Prograf Cap] 1.5 mg PO Q12 #60 cap QUEtiapine [Seroquel] 25 mg PO BID #30 tab - Follow Up Plan Condition: FAIR Disposition: HOME/ ROUTINE Instructions: Insulin NPH, Insulin Regular, Polyethylene Glycol 3350, Tacrolimus (Systemic), Low Blood Sugar, Adult (DC), Acute Psychosis (DC), Clonidine, Ergocalciferol, Famotidine, Gabapentin, Quetiapine Additional Instructions: Please f/u with Dr. Hall office in 1 week Please continue medication as per med. rec. PLEASE DO BS BEFORE MEALS AND RECORD AND BRING TO DR. HALL OFFICE NEXT VISIT [facility] for home care / home PT / and managemtn of DM PLEASE [employer] MEDICATION FROM [facility] Referrals: Westley Hall MD [Staff Provider] -
--- NOTE | 2018-02-03 05:41 | DS ---
DISCHARGE DIAGNOSES: 1. Uncontrolled diabetes. 2. Psychosis. 3. Hypertension. 4. Chronic hepatitis B virus infection, status post liver transplant. HISTORY OF PRESENT ILLNESS: This is an elderly female with history of diabetes, hypertension, hepatitis B virus. The patient is status post transplant 15 years ago. She is compliant with her diet, medication and followup. The patient has been having repeated episodes of confusion, agitation, restlessness, delusion, and hallucination. The patient was admitted to [facility], seen by Neuropsychology and Psychiatry, and the patient was started on Seroquel. In the meantime, the patient's blood sugar fluctuated widely. Her blood sugar went up very high. The patient was given Accu-Chek sliding scale and IV fluid. She was treated, stabilized, and discharged with outpatient followup. PHYSICAL EXAMINATION: VITAL SIGNS: Blood pressure 118/64, pulse 87, respiratory rate 20, temperature 98.9. LUNGS: Clear. No rales. No rhonchi. CARDIOVASCULAR SYSTEM: S1 and S2, regular. ABDOMEN: Soft. LABORATORY DATA: WBC 2.2, hemoglobin 11.1, hematocrit 34.1, and platelets 90. Sodium 133, potassium 4.5, chloride 99, bicarb 21, BUN 28, creatinine 1.1. PLAN: Discharged the patient. Westley Hall MD
== END 2018-02-02 18:45 | disposition home or self-care (01) | DRG 885 ==
LOC: C.ER 17:33 → C.9E 18:57 → C.3T 19:55
PROVIDERS: ADMIT Internal Medicine; ATTEND Internal Medicine
DX: F32.3 Major depressive disorder, single episode, severe with psychotic features (principal); B18.1 Chronic viral hepatitis B without delta-agent; Z94.4 Liver transplant status; E11.649 Type 2 diabetes mellitus with hypoglycemia without coma; E11.65 Type 2 diabetes mellitus with hyperglycemia; E86.0 Dehydration; E78.5 Hyperlipidemia, unspecified; F41.9 Anxiety disorder, unspecified; I10 Essential (primary) hypertension; I25.10 Atherosclerotic heart disease of native coronary artery without angina pectoris; M17.12 Unilateral primary osteoarthritis, left knee; Z79.4 Long term (current) use of insulin; Z91.11 Patient's noncompliance with dietary regimen; Z91.14 Patient's other noncompliance with medication regimen

== ENCOUNTER 2018-04-16 11:26 | Emergency (ER) | payer MEDICARE, MEDICAID ==
[2018-04-16 11:31] VITALS: BMI 18.6
[2018-04-16 11:36] VITALS: RESP 18
[2018-04-16] MEDS ORDERED: Sodium Chloride 0.9% 500 ML IV ONE ×2 (12:34→15:58)
[2018-04-16 13:09] LABS: BASO % 0.8 % (0.0-2.0); EOS # 0.1 K/uL (0.0-0.7); EOS % 2.3 % (0.0-4.0); HEMOGLOBIN 11.8 g/dL (11.0-16.0); LYMPH # 1.2 K/uL (1.0-4.3); LYMPH % 26.5 % (20.0-40.0); MEAN CELL VOLUME 89.9 fL (81.0-99.0); MEAN CORPUSCULAR HEMOGLOBIN 30.3 pg (27.0-31.0); MEAN CORPUSCULAR HGB CONC 33.7 g/dL (33.0-37.0); MEAN PLATELET VOLUME 8.2 fL (7.2-11.7); MONO # 0.3 K/uL (0.0-0.8); NEUT # 2.8 K/uL (1.8-7.0); NEUT % 63.4 % (50.0-75.0); NRBC % 0.1 % (0.0-2.0); RBC 3.89 Mil/uL (3.80-5.20); RED CELL DISTRIBUTION WIDTH 14.1 % (11.5-14.5)
--- NOTE | 2018-04-16 13:15 | RAD ---
Date of service: 04/16/2018 HISTORY: COUGH, DIZZY COMPARISON: Portable chest 01/25/2018. FINDINGS: LUNGS: No acute infiltrates bilaterally. Overall improved inspiratory volume noted. PLEURA: No significant pleural effusion identified, no pneumothorax apparent. CARDIOVASCULAR: No aortic atherosclerotic calcification present. Calcific atherosclerotic changes are seen related to the thoracic aorta. Upper limits normal cardiac size. No pulmonary vascular congestion. Dense mitral annular calcification identified. OSSEOUS STRUCTURES: No significant abnormalities. VISUALIZED UPPER ABDOMEN: Surgical clips right upper quadrant abdomen medially. Mammilated medial right hemidiaphragm. OTHER FINDINGS: None. IMPRESSION: No acute cardiopulmonary is appreciable.
[2018-04-16 13:17] LABS: WHITE BLOOD COUNT 4.4 K/uL (4.8-10.8)
[2018-04-16] MEDS ORDERED: Sodium Chloride 0.9% 1,000 ML ONE ×2 (13:26→16:14)
[2018-04-16 14:26] LABS: ALB/GLOB RATIO 1.1 (1.0-2.1); ALBUMIN 3.6 g/dL (3.5-5.0); BLOOD UREA NITROGEN 33 mg/dL (7-17); CALCIUM 8.7 mg/dl (8.6-10.4); GFR NON-AFRICAN AMERICAN > 60
[2018-04-16 14:35] LABS: ALT/SGPT 58 U/L (9-52); AST/SGOT 87 U/L (14-36)
[2018-04-16 16:21] VITALS: BP 166/79; PULSE 82; TEMP 98.5
[2018-04-16 16:22] VITALS: O2SAT 97
[2018-04-16 16:22] LABS: SQUAMOUS EPITHIAL < 1 /hpf (0-5); URINE BILIRUBIN NEGATIVE (NEGATIVE); URINE BLOOD NEGATIVE (NEGATIVE); URINE CLARITY Clear (Clear); URINE COLOR Straw (YELLOW); URINE GLUCOSE (UA) NORMAL (Normal); URINE LEUKOCYTE ESTERASE TRACE Leu/uL (Negative); URINE PROTEIN NEGATIVE (NEGATIVE); URINE UROBILINOGEN NORMAL mg/dL (0.2-1.0)
--- NOTE | 2018-04-16 16:22 | C.PDOC ---
History Of Present Illness 78 y/o female presents to the ED for evaluation of 2 days of nonproductive cough, chills, and feeling lightheaded. She also developed 2 episodes of diarrhea today. Patient denies any chest pain, SOB, nausea, vomiting, dysuria/hematuria, sick contacts. PMHx is significant for prior liver transplant, DM, CAD, gastritis, HTN, pneumonia, and bipolar disorder. Time Seen by Provider: 04/16/18 12:21 Chief Complaint (Nursing): Dizziness/Lightheaded History Per: Patient History/Exam Limitations: no limitations Onset/Duration Of Symptoms: Days (x2) Current Symptoms Are (Timing): Still Present Past Medical History Reviewed: Historical Data, Nursing Documentation, Vital Signs Vital Signs: Last Vital Signs Temp 97.7 F 04/16/18 11:31 Pulse 101 H 04/16/18 11:31 Resp 18 04/16/18 11:31 BP 114/71 04/16/18 11:31 Pulse Ox 97 04/16/18 11:31 - Medical History PMH: Anxiety, Arthritis (L KNEE; BACK), Bipolar Disorder, Bronchitis, CAD, Depression, Diabetes, Deep Vein Thrombosis, Fractures (L leg), Gastritis, HTN, Peripheral Edema, Pneumonia, Pneumothorax Comment Only: COPD (DENIES) Surgical History: (x 2) - [facility] Procedures (06/13/17) CLOSED ENDOSCOPIC BIOPSY OF LARGE INTESTINE (08/31/13) DRAINAGE OF RIGHT LOWER LOBE BRONCHUS, ENDO, DIAGN (08/03/15) DRAINAGE OF RIGHT MIDDLE LOBE BRONCHUS, ENDO, DIAGN (08/03/15) DRAINAGE OF SPINAL CANAL, PERCUTANEOUS APPROACH, DIAGNOSTIC (08/03/15) ESOPHAGOGASTRODUODENOSCOPY [EGD] W/CLOSED BIOPSY (08/31/13) EXCISION OF STOMACH, ENDO, DIAGN (12/04/17) GROUP PSYCHOTHERAPY (05/02/17) INDIVIDUAL PSYCHOTHERAPY, SUPPORTIVE (05/02/17) INSERT INTERCOSTAL CATH (03/15/14) INSERTION OF ENDOTRACHEAL AIRWAY INTO TRACHEA, VIA OPENING (08/03/15) INSERTION OF INFUSION DEV INTO SUP VENA CAVA, PERC APPROACH (10/17/17) INSERTION OF INTRALUM DEV INTO INF VENA CAVA, PERC APPROACH (06/29/17) INTRODUCTION OF SERUM/TOX/VACCINE INTO MUSCLE, PERC APPROACH (04/20/17) OTHER PLEURAL INCISION (03/15/14) REMOVAL OF FB NOS (05/25/13) RESPIRATORY VENTILATION, GREATER THAN 96 CONSECUTIVE HOURS (08/03/15) TRANSFUSE NONAUT PLATELETS IN PERIPH VEIN, PERC (08/03/15) Family History: States: Diabetes - Social History Hx Tobacco Use: No Hx Alcohol Use: No Hx Substance Use: No - Immunization History Hx Tetanus Toxoid Vaccination: No Hx Influenza Vaccination: Yes Hx Pneumococcal Vaccination: Yes Review Of Systems Constitutional: Positive for: Chills. Negative for: Fever Cardiovascular: Positive for: Light Headedness. Negative for: Chest Pain, Palpitations Respiratory: Positive for: Cough. Negative for: Shortness of Breath Gastrointestinal: Positive for: Diarrhea (x 2). Negative for: Nausea, Vomiting, Abdominal Pain Genitourinary: Negative for: Dysuria, Hematuria Skin: Negative for: Rash Neurological: Negative for: Weakness, Numbness, Change in Speech, Headache Physical Exam - Physical Exam Appears: Well, Non-toxic, No Acute Distress Skin: Normal Color, Warm, Dry, No Rash Head: Normacephalic Eye(s): bilateral: Normal Inspection, PERRL, EOMI Oral Mucosa: Moist Neck: Normal ROM Chest: Symmetrical Cardiovascular: Rhythm Regular (mildly tachycardic) Respiratory: No Accessory Muscle Use, No Rales, No Rhonchi, No Wheezing, Other (Lungs clear bilaterally, patient speaking in complete sentences) Gastrointestinal/Abdominal: Normal Exam, Bowel Sounds, Soft, No Tenderness, No Distention Extremity: No Pedal Edema, No Calf Tenderness Extremity: Bilateral: Atraumatic, Normal Color And Temperature Pulses: Left Dorsalis Pedis: Normal, Right Dorsalis Pedis: Normal Neurological/Psych: Oriented x3, Normal Speech Gait: Steady ED Course And Treatment - Laboratory Results Result Diagrams: 04/16/18 13:04 04/16/18 14:07 Lab Results: Total Bilirubin 0.9 mg/dL (0.2-1.3) 04/16/18 14:07 AST 87 U/L (14-36) H 04/16/18 14:07 ALT 58 U/L (9-52) H D 04/16/18 14:07 Alkaline Phosphatase 206 U/L (38-126) H D 04/16/18 14:07 Total Protein 6.8 g/dL (6.3-8.3) 04/16/18 14:07 Albumin 3.6 g/dL (3.5-5.0) 04/16/18 14:07 Globulin 3.2 gm/dL (2.2-3.9) 04/16/18 14:07 Albumin/Globulin Ratio 1.1 (1.0-2.1) 04/16/18 14:07 ECG: Interpreted By Me, Viewed By Me ECG Rhythm: Sinus Rhythm (75 bpm) ECG Interpretation: No Acute Changes Interpretation Of ECG: Short RI interval 94 ms, No delta waves, Normal axis, No acute ST or T wave changes Rate From EC O2 Sat by Pulse Oximetry: 97 (RA) Pulse Ox Interpretation: Normal - Other Rad CXR X-Ray: Read By Radiologist Interpretation: Accession No. : [id number]. Patient Name / ID : EARLENE LAL I / [id number]. Exam Date : 04/16/2018 12:53:29 ( Approved ). Study Comment : Sex / Age : F / 78Y. Creator : Rupert Redmond MD. Dictator : Rupert Redmond MD. Strip Deburrer : Biology Specialist : Rupert Redmond MD. Approver2 : Report Date : 04/16/2018 13:11:52. My Comment : . Date of service: 04/16/2018. HISTORY: COUGH, DIZZY. COMPARISON: Portable chest 01/25/2018. FINDINGS: LUNGS: No acute infiltrates bilaterally. Overall improved inspiratory volume noted. PLEURA: No significant pleural effusion identified, no pneumothorax apparent. CARDIOVASCUL AR: No aortic atherosclerotic calcification present. Calcific atherosclerotic changes are seen related to the thoracic aorta. Upper limits normal cardiac size. No pulmonary vascular congestion. Dense mitral annular calcification identified. OSSEOUS STRUCTURES: No significant abnormalities. VISUALIZED UPPER ABDOMEN: Surgical clips right upper quadrant abdomen medially. Mammilated medial right hemidiaphragm. OTHER FINDINGS: None. IMPRESSION: No acute cardiopulmonary is appreciable. Progress Note: Blood work, UA, EKG, CXR ordered and reviewed. Patient given IV NS bolus, IV toradol. Reevaluation Time: 17:15 Reassessment Condition: Improved (On reassessment, patient is resting comfortably and states she feels better. Vitals have improved. Blood work unremarkable except for mild elevation in LFTs, UA, CXR, influenza swab also WNL. Symptoms likely due to viral syndrome. Patient instructed to follow up with PMD in 1-2 days, and understands she should return to ED if symptoms worsen.) Disposition Counseled Patient/Family Regarding: Studies Performed, Diagnosis, Need For Followup, Rx Given - Disposition Referrals: Westley Hall MD [Staff Provider] - Disposition: HOME/ ROUTINE Disposition Time: 17:15 Condition: STABLE Additional Instructions: FOLLOW UP WITH YOUR DOCTOR IN 1-2 DAYS, AND MAKE SURE YOU SHOW YOUR LIVER SPECIALIST YOUR MOST RECENT LIVER STUDIES DRINK PLENTY OF FLUIDS USE MOTRIN NEEDED FOR PAIN RETURN TO ER IF SYMPTOMS WORSEN Instructions: Viral Syndrome (DC) Forms: [employer] (Rwandan) Print Language: MOLDOVAN - Clinical Impression Clinical Impression: Viral syndrome - Scribe Statement The provider has reviewed the documentation as recorded by the Jose Mueller Provider Attestation: All medical record entries made by the Davidibester were at my direction and personally dictated by me. I have reviewed the chart and agree that the record accurately reflects my personal performance of the history, physical exam, medical decision making, and the department course for this patient. I have also personally directed, reviewed, and agree with the discharge instructions and disposition.
--- NOTE | 2018-04-19 12:23 | CARD ---
APPROVED REPORT Date of service: 04/16/2018 EKG Measurement Heart [id number] 94P [id number] <Conclusion> Sinus rhythm with sinus arrhythmia with short WA Minimal voltage criteria for LVH, may be normal variant Borderline ECG
== END 2018-04-16 17:25 | disposition home or self-care (01) ==
LOC: C.ER 11:26
DX: B34.9 Viral infection, unspecified (principal); E11.9 Type 2 diabetes mellitus without complications; I10 Essential (primary) hypertension; I25.10 Atherosclerotic heart disease of native coronary artery without angina pectoris; Z94.4 Liver transplant status
CPT/HCPCS: 71045; 80053; 81001; 82948; 85025; 87804; 93005; 96361; 96374; 99285; J1885; J7040

== ENCOUNTER 2018-05-20 09:25 | Emergency (ER) | payer MEDICARE, MEDICAID ==
[2018-05-20 09:25] VITALS: BMI 18.6
[2018-05-20 10:26] LABS: BASO % 0.7 % (0.0-2.0); EOS # 0.1 K/uL (0.0-0.7); EOS % 3.5 % (0.0-4.0); LYMPH # 0.7 K/uL (1.0-4.3); LYMPH % 25.2 % (20.0-40.0); MEAN CELL VOLUME 91.7 fL (81.0-99.0); MEAN CORPUSCULAR HEMOGLOBIN 29.4 pg (27.0-31.0); MEAN PLATELET VOLUME 8.5 fL (7.2-11.7); MONO # 0.2 K/uL (0.0-0.8); MONO % 6.4 % (0.0-10.0); NEUT # 1.9 K/uL (1.8-7.0); NEUT % 64.2 % (50.0-75.0); NRBC % 0.2 % (0.0-2.0); RBC 3.4 Mil/uL (3.80-5.20); RED CELL DISTRIBUTION WIDTH 15.2 % (11.5-14.5)
[2018-05-20 10:42] LABS: ALB/GLOB RATIO 1.1 (1.0-2.1); ALBUMIN 3.3 g/dL (3.5-5.0); ALT/SGPT 27 U/L (9-52); AST/SGOT 44 U/L (14-36); BLOOD UREA NITROGEN 26 mg/dL (7-17); CALCIUM 8.5 mg/dl (8.6-10.4); GFR NON-AFRICAN AMERICAN > 60
--- NOTE | 2018-05-20 10:50 | C.PDOC ---
History Of Present Illness 78 y/o female, with history of left DVT, liver transplant, anxiety, and diabetes, comes to ER stating she has a blood clot in her left leg. Patient was in [place] for 3 weeks and went to the hospital there 2 weeks ago for unclea r reason and sts she was told she has dvt and is not on anticoagulant. Patient is a poor historian. Patient is not on any medication and she denies fever or chills. no cp,no sob. Time Seen by Provider: 05/20/18 09:53 Chief Complaint (Nursing): Lower Extremity Problem/Injury History Per: Patient History/Exam Limitations: no limitations Onset/Duration Of Symptoms: Days Current Symptoms Are (Timing): Still Present Past Medical History Reviewed: Historical Data, Nursing Documentation, Vital Signs Vital Signs: Last Vital Signs Temp 98.3 F 05/20/18 09:38 Pulse 79 05/20/18 09:38 Resp 18 05/20/18 09:38 BP 129/79 05/20/18 09:38 Pulse Ox 97 05/20/18 09:38 - Medical History PMH: Anxiety, Arthritis (L KNEE; BACK), Bipolar Disorder, Bronchitis, CAD, Depression, Diabetes, Deep Vein Thrombosis, Fractures (L leg), Gastritis, HTN, Peripheral Edema, Pneumonia, Pneumothorax Denies: Chronic Kidney Disease, Sickle Cell Disease Comment Only: COPD (DENIES) Surgical History: (x 2) Denies: Tonsillectomy - [facility] Procedures (06/13/17) CLOSED ENDOSCOPIC BIOPSY OF LARGE INTESTINE (08/31/13) DRAINAGE OF RIGHT LOWER LOBE BRONCHUS, ENDO, DIAGN (08/03/15) DRAINAGE OF RIGHT MIDDLE LOBE BRONCHUS, ENDO, DIAGN (08/03/15) DRAINAGE OF SPINAL CANAL, PERCUTANEOUS APPROACH, DIAGNOSTIC (08/03/15) ESOPHAGOGASTRODUODENOSCOPY [EGD] W/CLOSED BIOPSY (08/31/13) EXCISION OF STOMACH, ENDO, DIAGN (12/04/17) GROUP PSYCHOTHERAPY (05/02/17) INDIVIDUAL PSYCHOTHERAPY, SUPPORTIVE (05/02/17) INSERT INTERCOSTAL CATH (03/15/14) INSERTION OF ENDOTRACHEAL AIRWAY INTO TRACHEA, VIA OPENING (08/03/15) INSERTION OF INFUSION DEV INTO SUP VENA CAVA, PERC APPROACH (10/17/17) INSERTION OF INTRALUM DEV INTO INF VENA CAVA, PERC APPROACH (06/29/17) INTRODUCTION OF SERUM/TOX/VACCINE INTO MUSCLE, PERC APPROACH (04/20/17) OTHER PLEURAL INCISION (03/15/14) REMOVAL OF FB NOS (05/25/13) RESPIRATORY VENTILATION, GREATER THAN 96 CONSECUTIVE HOURS (08/03/15) TRANSFUSE NONAUT PLATELETS IN PERIPH VEIN, PERC (08/03/15) Family History: States: Diabetes - Social History Hx Tobacco Use: No Hx Alcohol Use: No Hx Substance Use: No - Immunization History Hx Tetanus Toxoid Vaccination: No Hx Influenza Vaccination: Yes Hx Pneumococcal Vaccination: Yes Review Of Systems Constitutional: Negative for: Fever, Chills Cardiovascular: Negative for: Chest Pain Respiratory: Negative for: Shortness of Breath Gastrointestinal: Negative for: Nausea, Vomiting, Abdominal Pain, Diarrhea Musculoskeletal: Positive for: Other (blood clot in left leg) Physical Exam - Physical Exam Appears: Non-toxic, No Acute Distress Skin: Warm, Dry Head: Atraumatic, Normacephalic Eye(s): bilateral: Normal Inspection Oral Mucosa: Moist Neck: Supple Cardiovascular: Rhythm Regular, No Murmur Respiratory: Normal Breath Sounds, No Rales, No Rhonchi, No Wheezing Extremity: No Tenderness, No Deformity, No Swelling (of left leg) Extremity: Bilateral: Atraumatic, Normal Color And Temperature, Normal ROM Neurological/Psych: Oriented x3, Normal Speech, Normal Cognition ED Course And Treatment - Laboratory Results Result Diagrams: 05/20/18 10:09 05/20/18 10:32 Lab Results: PT 11.0 SECONDS (9.7-12.2) 05/20/18 10:32 INR 1.0 05/20/18 10:32 APTT 31 SECONDS (21-34) 05/20/18 10:32 Total Bilirubin 0.5 mg/dL (0.2-1.3) 05/20/18 10:32 AST 44 U/L (14-36) H D 05/20/18 10:32 ALT 27 U/L (9-52) 05/20/18 10:32 Alkaline Phosphatase 217 U/L (38-126) H 05/20/18 10:32 Total Protein 6.4 g/dL (6.3-8.3) 05/20/18 10:32 Albumin 3.3 g/dL (3.5-5.0) L 05/20/18 10:32 Globulin 3.1 gm/dL (2.2-3.9) 05/20/18 10:32 Albumin/Globulin Ratio 1.1 (1.0-2.1) 05/20/18 10:32 O2 Sat by Pulse Oximetry: 97 (RA) Pulse Ox Interpretation: Normal Medical Decision Making Medical Decision Making: Plan: --Labs --Venous Duplex Scan of lower extremities 12:55- Spoke to Dr. Hall, patient is not on anticoagulant for DVT. Patient had IVC placed last year due to high fall risk. Disposition Counseled Patient/Family Regarding: Studies Performed, Diagnosis, Need For Followup - Disposition Referrals: Westley Hall MD [Staff Provider] - Disposition: HOME/ ROUTINE Disposition Time: 13:01 Condition: GOOD Additional Instructions: Bell un seguimiento con el Dr. Hall en unos murphy. Regrese a la rita de emergencias para flavia si hay sntomas peores. Instructions: Deep Vein Thrombosis (Blood Clots in the Legs) Forms: Gen Discharge Inst Indonesian, [employer] (Indonesian) Print Language: SWEDISH - Clinical Impression Clinical Impression: Chronic deep vein thrombosis (DVT) - PA / INFECTIOUS DISEASES PHYSICIAN / Resident Statement MD/DO has reviewed & agrees with the documentation as recorded. - Scribe Statement The provider has reviewed the documentation as recorded by the Scribe Candice [email or web address] All medical record entries made by the Scribe were at my direction and personally dictated by me. I have reviewed the chart and agree that the record accurately reflects my personal performance of the history, physical exam, medical decision making, and the department course for this patient. I have also personally directed, reviewed, and agree with the discharge instructions and disposition.
[2018-05-20 13:09] VITALS: BP 124/65; PULSE 72; RESP 17; TEMP 98
--- NOTE | 2018-05-21 18:51 | VASCLAB ---
Date of service: 05/20/2018 PROCEDURE: Left Lower Extremity Venous Duplex Exam. HISTORY: Left leg pain, History of DVT. PRIORS: Last exam on 10/17/2017, positive. TECHNIQUE: Left common femoral, femoral, popliteal and posterior tibial, peroneal and great saphenous veins were evaluated. Flow was assessed with color Doppler, compressibility, assessment of phasic flow and augmentation response. Report prepared by Fly Person, NADIR, RVT FINDINGS: LEFT: 1. Common Femoral Vein: 1.1. Compressibility - Partial: Thrombus - Chronic : Flow - Phasic: Augmentation -Normal: Reflux - None. 2. Femoral Vein: 2.1. Compressibility - Partial: Thrombus - Chronic: Flow - Phasic: Augmentation -Normal: Reflux - None. 3. Popliteal Vein: 3.1. Compressibility - Partial: Thrombus - Chronic: Flow - Phasic: Augmentation -Normal: Reflux - Mild 2.81s 4. Posterior Tibial Vein: 4.1. Compressibility - Fully compressible: Thrombus - None: Flow - Phasic: Augmentation -Normal: Reflux - None. 5. Peroneal Vein: 5.1. Compressibility - Fully compressible: Thrombus - None: Flow - Phasic: Augmentation -Normal: Reflux - None. 6. Great Saphenous Vein: 6.1. Compressibility - Fully compressible: Thrombus - None: Flow - Phasic: Augmentation - Normal: Reflux - None. OTHER FINDINGS: Normal venous flow noted in the right common femoral vein. IMPRESSION: Chronic deep vein thrombosis of the left common femoral, femoral and popliteal veins. Mild valvular incompetence of the left popliteal vein.
[2018-05-24 03:58] VITALS: O2SAT 97
== END 2018-05-20 13:08 | disposition home or self-care (01) ==
LOC: C.ER 09:25
DX: I82.502 Chronic embolism and thrombosis of unspecified deep veins of left lower extremity (principal)

== ENCOUNTER 2018-05-30 14:20 | Observation (INO) | payer MEDICARE, MEDICAID ==
[2018-05-30 14:20] VITALS: BMI 18.6
[2018-05-30] MEDS ORDERED: Sodium Chloride 0.9% 1,000 ML IV ONE ×2 (15:00)
--- NOTE | 2018-05-30 15:10 | C.PDOC ---
History Of Present Illness 78 years old female presents to ED for complaints of dizziness, weakness, and lethargy that began yesterday. Patient has PMHx of poorly controlled diabetes, chronic DVT (non anticoagulated due to falls risk), and bipolar psychiatric episodes. Patient states her daughter often visits her but patient lives alone. Patient also complaints of associated polyuria and polydipsia. Denies any other complaints. Time Seen by Provider: 05/30/18 14:53 Chief Complaint (Nursing): Dizziness/Lightheaded History Per: Patient History/Exam Limitations: no limitations Onset/Duration Of Symptoms: Hrs Current Symptoms Are (Timing): Still Present Associated Symptoms Preceding Syncopal Episode: No Predromal Symptoms (Sudden Onset) Seizure Or Post-ictal Symptoms: None Fall Associated With With Symptoms: No Recent travel outside of the [place]: No - Symptoms Of CVA Recent Aspirin Use: Unknown Current Coumadin Use?: Unknown Recent Head Trauma: No Past Medical History Reviewed: Historical Data, Nursing Documentation, Vital Signs Vital Signs: Last Vital Signs Temp 97.4 F L 05/30/18 14:34 Pulse 68 05/30/18 14:34 Resp 20 05/30/18 14:34 BP 89/58 L 05/30/18 14:34 Pulse Ox 97 05/30/18 14:34 - Medical History PMH: Anxiety, Arthritis (L KNEE; BACK), Bipolar Disorder, Bronchitis, CAD, Depression, Diabetes, Deep Vein Thrombosis, Fractures (L leg), Gastritis, HTN, Peripheral Edema, Pneumonia, Pneumothorax Denies: Chronic Kidney Disease, Sickle Cell Disease Comment Only: COPD (DENIES) Surgical History: (x 2) Denies: Tonsillectomy - [facility] Procedures (06/13/17) CLOSED ENDOSCOPIC BIOPSY OF LARGE INTESTINE (08/31/13) DRAINAGE OF RIGHT LOWER LOBE BRONCHUS, ENDO, DIAGN (08/03/15) DRAINAGE OF RIGHT MIDDLE LOBE BRONCHUS, ENDO, DIAGN (08/03/15) DRAINAGE OF SPINAL CANAL, PERCUTANEOUS APPROACH, DIAGNOSTIC (08/03/15) ESOPHAGOGASTRODUODENOSCOPY [EGD] W/CLOSED BIOPSY (08/31/13) EXCISION OF STOMACH, ENDO, DIAGN (12/04/17) GROUP PSYCHOTHERAPY (05/02/17) INDIVIDUAL PSYCHOTHERAPY, SUPPORTIVE (05/02/17) INSERT INTERCOSTAL CATH (03/15/14) INSERTION OF ENDOTRACHEAL AIRWAY INTO TRACHEA, VIA OPENING (08/03/15) INSERTION OF INFUSION DEV INTO SUP VENA CAVA, PERC APPROACH (10/17/17) INSERTION OF INTRALUM DEV INTO INF VENA CAVA, PERC APPROACH (06/29/17) INTRODUCTION OF SERUM/TOX/VACCINE INTO MUSCLE, PERC APPROACH (04/20/17) OTHER PLEURAL INCISION (03/15/14) REMOVAL OF FB NOS (05/25/13) RESPIRATORY VENTILATION, GREATER THAN 96 CONSECUTIVE HOURS (08/03/15) TRANSFUSE NONAUT PLATELETS IN PERIPH VEIN, PERC (08/03/15) Family History: States: Diabetes - Social History Hx Tobacco Use: No Hx Alcohol Use: No Hx Substance Use: No - Immunization History Hx Tetanus Toxoid Vaccination: Yes Hx Influenza Vaccination: Yes Hx Pneumococcal Vaccination: Yes Review Of Systems Except As Marked, All Systems Reviewed And Found Negative. Constitutional: Negative for: Fever, Chills Gastrointestinal: Negative for: Nausea, Vomiting, Diarrhea Genitourinary: Positive for: Other (polyuria and polydipsia) Skin: Negative for: Rash Neurological: Positive for: Weakness, Dizziness, Other (Lethargy ). Negative for: Numbness Physical Exam - Physical Exam Appears: Non-toxic, No Acute Distress Skin: Normal Color, Warm, Dry, No Rash, Other (skin tenting) Head: Atraumatic, Normacephalic Eye(s): bilateral: Normal Inspection, PERRL, EOMI Oral Mucosa: Dry Throat: Normal, No Erythema, No Exudate, No Drooling, No Mass Neck: Normal ROM, Supple Chest: Symmetrical, No Tenderness Cardiovascular: Rhythm Regular Respiratory: Normal Breath Sounds, No Rales, No Rhonchi, No Wheezing Gastrointestinal/Abdominal: Bowel Sounds (Active ), Soft, No Tenderness, No Guarding, No Rebound Extremity: Normal ROM Extremity: Bilateral: Atraumatic, Normal Color And Temperature, Normal ROM Pulses: Left Radial: Normal, Right Radial: Normal Neurological/Psych: Oriented x3, Normal Speech, Normal Motor, Normal Sensation, Normal Reflexes, Other (No focal deficits ) ED Course And Treatment - Laboratory Results Result Diagrams: 05/30/18 15:10 05/30/18 15:10 Lab Interpretation: Abnormal (elev glu, baseline CRI) ECG: Interpreted By Me ECG Rhythm: Sinus Rhythm O2 Sat by Pulse Oximetry: 97 (RA) Pulse Ox Interpretation: Normal - Other Rad CXR X-Ray: Viewed By Me, Read By Radiologist Interpretation: IMPRESSION: No active disease. Progress Note: IV NS bolus x 2, insulin IV Reevaluation Time: 16:22 Reassessment Condition: Improved - Physician Consult Information Outcome Of Conversation: 1620: d/w Dr. Hall- PMD, ok to Obs Medical Decision Making Medical Decision Making: Plan: * IV Fluids * Toradol * EKG * Blood work * CXR * Urinalysis EKG: * Normal Sinus Rhythm at 66 bpm uncontrolled DM without DKA insulin therapy Clinical dehydration due to polyuria continue hydration Psych: Extensive Bipolar/Schizo Well controlled/behaved in ED continue home meds. Disposition Doctor Will See Patient In The: Hospital Counseled Patient/Family Regarding: Studies Performed, Diagnosis - Disposition Disposition: HOSPITALIZED Disposition Time: 16:24 Condition: GOOD - Clinical Impression Clinical Impression: Diabetes mellitus, insulin dependent (IDDM), uncontrolled, Anxiety and depression - Scribe Statement The provider has reviewed the documentation as recorded by the Jose Slade All medical record entries made by the Davidibester were at my direction and personally dictated by me. I have reviewed the chart and agree that the record accurately reflects my personal performance of the history, physical exam, medical decision making, and the department course for this patient. I have also personally directed, reviewed, and agree with the discharge instructions and disposition.
[2018-05-30 15:13] LABS: BASO # 0.1 K/uL (0.0-0.2); BASO % 1.3 % (0.0-2.0); EOS # 0.1 K/uL (0.0-0.7); EOS % 2.8 % (0.0-4.0); HEMOGLOBIN 11.7 g/dL (11.0-16.0); LYMPH # 1.2 K/uL (1.0-4.3); LYMPH % 25.5 % (20.0-40.0); MEAN CELL VOLUME 89.7 fL (81.0-99.0); MEAN CORPUSCULAR HEMOGLOBIN 29.4 pg (27.0-31.0); MEAN CORPUSCULAR HGB CONC 32.7 g/dL (33.0-37.0); MEAN PLATELET VOLUME 8.8 fL (7.2-11.7); MONO # 0.4 K/uL (0.0-0.8); MONO % 7.6 % (0.0-10.0); NEUT % 62.8 % (50.0-75.0); NRBC % 0.1 % (0.0-2.0); RBC 3.98 Mil/uL (3.80-5.20); RED CELL DISTRIBUTION WIDTH 14.2 % (11.5-14.5); WHITE BLOOD COUNT 4.8 K/uL (4.8-10.8)
[2018-05-30 15:38] LABS: ALB/GLOB RATIO 1.1 (1.0-2.1); CALCIUM 9.4 mg/dl (8.6-10.4)
[2018-05-30] MEDS ORDERED: (Novolin R) Insulin Human Regular 100 units/ml vial IVP STA (15:55)
[2018-05-30] MEDS ORDERED: (Novolin R) Insulin Human Regular 100 units/ml vial ONE (16:07)
--- NOTE | 2018-05-30 17:18 | RAD ---
Date of service: 05/30/2018 PROCEDURE: CHEST RADIOGRAPH, 1 VIEW HISTORY: Diabetic COMPARISON: Comparison is made with 04/16/2018 FINDINGS: LUNGS: There is no evidence of new infiltrate or consolidation in the lungs. PLEURA: No pneumothorax or pleural fluid seen. CARDIOVASCULAR: Atherosclerotic calcification at the aortic arch is noted. Normal. OSSEOUS STRUCTURES: No significant abnormalities. VISUALIZED UPPER ABDOMEN: Normal. OTHER FINDINGS: None. IMPRESSION: No active disease.
[2018-05-30 17:21] LABS: SQUAMOUS EPITHIAL < 1 /hpf (0-5); URINE BILIRUBIN NEGATIVE (NEGATIVE); URINE BLOOD NEGATIVE (NEGATIVE); URINE CLARITY Clear (Clear); URINE COLOR Yellow (YELLOW); URINE GLUCOSE (UA) 3+ mg/dL (Normal); URINE LEUKOCYTE ESTERASE TRACE Leu/uL (Negative); URINE PROTEIN NEGATIVE (NEGATIVE); URINE UROBILINOGEN NORMAL mg/dL (0.2-1.0)
[2018-05-30 18:23] VITALS: RESP 20
[2018-05-30 19:07] LABS: VENOUS BLOOD GAS BASE EXCESS 0.5 mmol/L (0.0-2.0); VENOUS BLOOD GAS PCO2 59 mmHg (40-60); VENOUS BLOOD GAS PO2 24 mm/Hg (30-55); VENOUS BLOOD PH 7.29 (7.32-7.43)
[2018-05-30 19:26] LABS: CALCIUM 8.6 mg/dl (8.6-10.4)
[2018-05-30] MEDS: Sodium Chloride 0.9% 1,000 ML IV SCH (19:41)
[2018-05-30] MEDS ORDERED: (Novolin R) Insulin Human Regular 100 units/ml vial SC SCH (22:00)
[2018-05-30] MEDS: (Lantus) Insulin Glargine, Recombinant SC SCH (22:10)
[2018-05-31] MEDS: Sodium Chloride 0.9% 1,000 ML IV SCH ×2 (05:18→13:49)
[2018-05-31 06:55] LABS: CALCIUM 8.4 mg/dl (8.6-10.4)
[2018-05-31] MEDS ORDERED: (Novolin R) Insulin Human Regular 100 units/ml vial SC SCH (07:30)
[2018-05-31] MEDS: (Novolin R) Insulin Human Regular 100 units/ml vial SC SCH ×4 (09:05→21:27)
--- NOTE | 2018-05-31 12:53 | CARD ---
APPROVED REPORT Date of service: 05/30/2018 EKG Measurement Heart [id number] <Conclusion> Sinus rhythm with premature atrial complexes Prolonged QT Abnormal ECG
[2018-05-31] MEDS: (Lantus) Insulin Glargine, Recombinant SC SCH (21:28)
--- NOTE | 2018-05-31 23:05 | CP.PCM.HP ---
Present on Admission - Present on Admission Any Indicators Present on Admission: Yes History of DVT/PE: Yes History of Uncontrolled Diabetes: Yes Past Patient History - Infectious Disease Hx of Infectious Diseases: None - Past Medical History & Family History Past Medical History?: Yes - Past Social History Smoking Status: Never Smoked - CARDIAC Hx Cardiac Disorders: Yes Hx Hypertension: Yes - PULMONARY Hx Chronic Obstructive Pulmonary Disease (COPD): (DENIES) - NEUROLOGICAL Hx Neurological Disorder: No - HEENT Hx HEENT Problems: Yes Hx Blind: Yes (Right eye blind) - RENAL Hx Chronic Kidney Disease: No - ENDOCRINE/METABOLIC Hx Endocrine Disorders: Yes Hx Diabetes Mellitus Type 2: Yes - HEMATOLOGICAL/ONCOLOGICAL Hx Sickle Cell Disease: No - INTEGUMENTARY Hx Dermatological Problems: No - MUSCULOSKELETAL/RHEUMATOLOGICAL Hx Arthritis: Yes (L KNEE; BACK) - GASTROINTESTINAL Hx Gastritis: Yes - GENITOURINARY/GYNECOLOGICAL Hx Genitourinary Disorders: No - PSYCHIATRIC Hx Anxiety: Yes Hx Bipolar Disorder: Yes Hx Depression: Yes Hx Substance Use: No - SURGICAL HISTORY Hx Tonsillectomy: No - ANESTHESIA Hx Anesthesia: Yes Hx Anesthesia Reactions: No Hx Malignant Hyperthermia: No Meds Allergies/Adverse Reactions: Allergies Allergy/AdvReac Type Severity Reaction Status Date / Time No Known Allergies Allergy Verified 05/30/18 14:39 Results - Vital Signs Recent Vital Signs: Last Vital Signs Temp 98.5 F 05/31/18 16:00 Pulse 64 05/31/18 16:00 Resp 20 05/31/18 16:00 BP 147/70 05/31/18 16:00 Pulse Ox 96 05/31/18 16:00 - Labs Result Diagrams: 05/30/18 15:10 05/31/18 06:29 Labs: Laboratory Results - last 24 hr 05/31/18 05/31/18 05/31/18 03:14 06:29 07:28 Sodium 138 Potassium 4.0 Chloride 109 H Carbon Dioxide 25 Anion Gap 8 L BUN 27 H Creatinine 1.2 Est GFR ( Amer) 53 Est GFR (Non-Af Amer) 44 POC Glucose (mg/dL) 105 96 Random Glucose 93 D Calcium 8.4 L 05/31/18 05/31/18 05/31/18 11:27 16:23 21:24 Sodium Potassium Chloride Carbon Dioxide Anion Gap BUN Creatinine Est GFR ( Amer) Est GFR (Non-Af Amer) POC Glucose (mg/dL) 257 H 136 H 266 H Random Glucose Calcium
[2018-06-01] MEDS: Sodium Chloride 0.9% 1,000 ML IV SCH ×2 (00:30→14:11)
--- NOTE | 2018-06-01 06:45 | HP ---
CHIEF COMPLAINT: Weakness, dizziness. HISTORY OF PRESENT ILLNESS: This is a 78-year-old female well known to me with history of chronic hepatitis B virus infection, status post transplant over 15 years ago, on immunosuppressive therapy, insulin-dependent diabetes, on insulin, noncompliant, hypotension, anxiety, depression, and psychosis. The patient has DVT, and she has IVC filter in place, and she is not a candidate for anticoagulant due to poor compliance, multiple fall risks. The patient in her usual status of health, is ambulatory and independent in her activities of daily living. The patient is noncompliant with her diet, medication, and followup. According to the patient, she checks her sugars, and she injects insulin accordingly. Her insulin injections are inconsistent. According to daughter, the patient generally does not inject insulin if her sugar is below 200. I spoke to the patient in detail about this. The patient has polyuria, polydipsia, polyphagia. She has generalized weakness, dizziness, anorexia, malaise, and fatigue. She denies any fever, chills, rigors. She denies any dysuria, hematuria, pyuria. She denies any sneezing, itchy eyes, itchy nose. She is anxious. She is depressed, and she is delusional. She believes that her neighbors comes around her apartment. The patient has no recent trauma or head injury. She denies any seizure-like activity. There is no history of significant chest pain, but she has palpitations with dizziness. ALLERGIES: UNKNOWN ALLERGIES. CURRENT MEDICATIONS: At home, she is on vitamin D, Humulin R, Pepcid, Ativan, Prograf, Restoril, Catapres. SOCIAL HISTORY: Nonsmoker, non-EtOH user. PHYSICAL EXAMINATION: GENERAL: An elderly female. At the moment, she denies any distress. VITAL SIGNS: Blood pressure 147/70, pulse 64, respiratory rate is 20, temperature 98.5. SKIN: Dry. Senile turgor. No bruises. No purpura. No petechiae. HEENT: Atraumatic and normocephalic. Negative pallor. Negative jaundice. Extraocular movements are intact. NECK: Supple. No JVD. No lymph node. No thyromegaly. No carotid bruits. CHEST WALL: Bilateral symmetrical expansion. No tenderness. No deformity. LUNGS: Bilaterally clear. No rales. No rhonchi. CARDIOVASCULAR SYSTEM: PMI in fifth intercostal space. S1 and S2. Regular. No heave. No thrill. ABDOMEN: Soft, nontender. Bowel sounds are positive. RECTAL: No masses. No bleed. EXTREMITIES: No clubbing, cyanosis or edema. CENTRAL NERVOUS SYSTEM: Awake, alert, oriented x3. Cranial nerves II through XII are normal. Power 5/5 x4. Plantars are downgoing. ASSESSMENT: 1. Uncontrolled diabetes. Rule out diabetic ketoacidosis. Rule out hyperosmolar state. 2. Dehydration. Now, the patient is noncompliant with her insulin regimen, and she uses her own judgment to use insulin. So, the patient has dehydration and high sugar. 3. Uncontrolled hypertension. 4. Anxiety, depression, and bipolar disorder. PLAN: Admit. IV fluids. Accu-Chek, sliding scale Lantus. Monitor the patient. Westley Hall MD
[2018-06-01] MEDS: (Novolin R) Insulin Human Regular 100 units/ml vial SC SCH (08:39)
[2018-06-01] MEDS ORDERED: (Novolin R) Insulin Human Regular 100 units/ml vial SC SCH (09:33)
[2018-06-01] MEDS ORDERED: Pneumococcal 23-Valent Vaccine IM ONE (13:00)
[2018-06-01 16:01] VITALS: BP 107/58; PULSE 65; TEMP 98.7; O2SAT 97
--- NOTE | 2018-06-01 18:17 | CP.PCM.PN ---
Subjective - Date & Time of Evaluation Date of Evaluation: 06/01/18 Time of Evaluation: 18:17 Objective - Vital Signs/Intake and Output Vital Signs (last 24 hours): Temp Pulse Resp BP Pulse Ox 98.7 F 65 20 107/58 L 97 06/01/18 15:59 06/01/18 15:59 06/01/18 15:59 06/01/18 15:59 06/01/18 15:59 Intake and Output: 06/01/18 06/01/18 06:59 18:59 Intake Total 1200 1280 Output Total 600 Balance 600 1280 - Labs Labs: 05/30/18 15:10 05/31/18 06:29 Assessment and Plan - Assessment and Plan (Free Text) Assessment: 78 year old female admitted with uncontrolled DM, dehydration, seen and examin ed. Alert and orientedx3, denies any pain or distress. Discussed with DR Hall, increased the lantus to 10 units at night and advised to continue sliding scale coverage at home, plan to discharge home today. Advised not to skip meals and monitor blood sugar closely and follow up in the office in 1 week.
--- NOTE | 2018-06-01 21:42 | CP.PCM.DIS ---
Provider - Provider Date of Admission: 05/30/18 16:20 Attending physician: Westley Hall MD Time Spent in preparation of Discharge (in minutes): 30 Hospital Course - Lab Results Lab Results: Most Recent Lab Values WBC 4.8 K/uL (4.8-10.8) D 05/30/18 15:10 RBC 3.98 Mil/uL (3.80-5.20) 05/30/18 15:10 Hgb 11.7 g/dL (11.0-16.0) 05/30/18 15:10 Hct 35.8 % (34.0-47.0) 05/30/18 15:10 MCV 89.7 fL (81.0-99.0) D 05/30/18 15:10 MCH 29.4 pg (27.0-31.0) 05/30/18 15:10 MCHC 32.7 g/dL (33.0-37.0) L 05/30/18 15:10 RDW 14.2 % (11.5-14.5) 05/30/18 15:10 Plt Count 131 K/uL (130-400) 05/30/18 15:10 MPV 8.8 fL (7.2-11.7) 05/30/18 15:10 Neut % (Auto) 62.8 % (50.0-75.0) 05/30/18 15:10 Lymph % (Auto) 25.5 % (20.0-40.0) 05/30/18 15:10 [place] % (Auto) 7.6 % (0.0-10.0) 05/30/18 15:10 Eos % (Auto) 2.8 % (0.0-4.0) 05/30/18 15:10 Baso % (Auto) 1.3 % (0.0-2.0) 05/30/18 15:10 Neut # (Auto) 3.0 K/uL (1.8-7.0) 05/30/18 15:10 Lymph # (Auto) 1.2 K/uL (1.0-4.3) 05/30/18 15:10 [place] # (Auto) 0.4 K/uL (0.0-0.8) 05/30/18 15:10 Eos # (Auto) 0.1 K/uL (0.0-0.7) 05/30/18 15:10 Baso # (Auto) 0.1 K/uL (0.0-0.2) 05/30/18 15:10 pO2 24 mm/Hg (30-55) L 05/30/18 19:04 VBG pH 7.29 (7.32-7.43) L 05/30/18 19:04 VBG pCO2 59 mmHg (40-60) 05/30/18 19:04 VBG HCO3 23.6 mmol/L 05/30/18 19:04 VBG Total CO2 30.2 mmol/L (22-28) H 05/30/18 19:04 VBG O2 Sat (Calc) 42.3 % (40-65) 05/30/18 19:04 VBG Base Excess 0.5 mmol/L (0.0-2.0) 05/30/18 19:04 VBG Potassium 4.4 mmol/L (3.6-5.2) 05/30/18 19:04 Sodium 138.0 mmol/l (132-148) 05/30/18 19:04 Chloride 108.0 mmol/L (98-107) H 05/30/18 19:04 Glucose 157 mg/dl (65-105) H 05/30/18 19:04 Lactate 1.9 mmol/L (0.7-2.1) 05/30/18 19:04 Sodium 138 mmol/L (132-148) 05/31/18 06:29 Potassium 4.0 mmol/L (3.6-5.2) 05/31/18 06:29 Chloride 109 mmol/L (98-107) H 05/31/18 06:29 Carbon Dioxide 25 mmol/L (22-30) 05/31/18 06:29 Anion Gap 8 (10-20) L 05/31/18 06:29 BUN 27 mg/dL (7-17) H 05/31/18 06:29 Creatinine 1.2 mg/dL (0.7-1.2) 05/31/18 06:29 Est GFR ( Amer) 53 05/31/18 06:29 Est GFR (Non-Af Amer) 44 05/31/18 06:29 POC Glucose (mg/dL) 130 mg/dL (65-110) H 06/01/18 16:56 Random Glucose 93 mg/dL (65-105) D 05/31/18 06:29 Hemoglobin A1c 10.2 % (4.2-6.5) H 05/30/18 15:10 Calcium 8.4 mg/dl (8.6-10.4) L 05/31/18 06:29 Total Bilirubin 1.1 mg/dL (0.2-1.3) 05/30/18 15:10 AST 61 U/L (14-36) H D 05/30/18 15:10 ALT 26 U/L (9-52) 05/30/18 15:10 Alkaline Phosphatase 243 U/L (38-126) H 05/30/18 15:10 Total Protein 7.5 g/dL (6.3-8.3) 05/30/18 15:10 Albumin 4.0 g/dL (3.5-5.0) 05/30/18 15:10 Globulin 3.5 gm/dL (2.2-3.9) 05/30/18 15:10 Albumin/Globulin Ratio 1.1 (1.0-2.1) 05/30/18 15:10 Venous Blood Potassium 4.4 mmol/L (3.6-5.2) 05/30/18 19:04 Urine Color Yellow (YELLOW) 05/30/18 17:10 Urine Clarity Clear (Clear) 05/30/18 17:10 Urine pH 6.0 (5.0-8.0) 05/30/18 17:10 Ur Specific [place] 1.006 (1.003-1.030) 05/30/18 17:10 Urine Protein Negative mg/dL (NEGATIVE) 05/30/18 17:10 Urine Glucose (UA) 3+ mg/dL (Normal) H 05/30/18 17:10 Urine Ketones Negative mg/dL (NEGATIVE) 05/30/18 17:10 Urine Blood Negative (NEGATIVE) 05/30/18 17:10 Urine Nitrate Negative (NEGATIVE) 05/30/18 17:10 Urine Bilirubin Negative (NEGATIVE) 05/30/18 17:10 Urine Urobilinogen Normal mg/dL (0.2-1.0) 05/30/18 17:10 Ur Leukocyte Esterase Trace [place]/uL (Negative) 05/30/18 17:10 Urine WBC (Auto) 11 /hpf (0-5) H 05/30/18 17:10 Urine RBC (Auto) < 1 /hpf (0-3) 05/30/18 17:10 Ur Squamous Epith Cells < 1 /hpf (0-5) 05/30/18 17:10 Discharge Plan - Discharge Medications Prescriptions: Insulin Glargine, Recombina [Lantus] 10 unit SC HS 30 Days unit - Follow Up Plan Condition: GOOD Disposition: HOME/ ROUTINE Instructions: Depression, Adult (DC), Anxiety, Adult (DC), Diabetes Type 2 (DC), Insulin Glargine, Diabetes and Diet Additional Instructions: Added lantus 10 units subcutaneously at bedtime Continue with insulin sliding scale as before Follow up with PMD in 1 week diabetic diet, regular exercise as advised Referrals: Westley Hall MD [Staff Provider] -
[2018-06-01] MEDS ORDERED: (Lantus) Insulin Glargine, Recombinant SC SCH (22:00)
--- NOTE | 2018-06-02 06:38 | DS ---
DISCHARGE DIAGNOSES: 1. Poorly controlled diabetes. 2. Hypertension. 3. Hyperlipidemia. 4. Bipolar psychosis. 5. Depression. HOSPITAL COURSE: This is a 78-year-old female well known to me with history of liver transplant due to chronic hepatitis B virus infection, type 1 diabetes on insulin, hypertension, anxiety, depression, hyperlipidemia. She is compliant with diet, medication and followup except for the fact that she uses her own insulin sliding scale according to her own desire. She is refusing to make any adjustments in which she does not want to take any advice. She was admitted with high blood sugar, polyuria, polydipsia, polyphagia, low blood pressure, weakness, tiredness, anorexia, malaise and fatigue. The patient was admitted to the floor, started on IV fluids, Accu-Chek sliding scale and her insulin regimen was adjusted and the patient is doing well. Blood sugar is down. She is afebrile. She is being discharged. She will go home on Lantus 10 units subcu daily and insulin sliding scale. The patient will be followed up by me as outpatient. Westley Hall MD
== END 2018-06-01 17:39 | disposition home or self-care (01) ==
LOC: C.ER 14:20 → C.9E 16:20 → C.3T 16:40
PROVIDERS: ADMIT Internal Medicine; ATTEND Internal Medicine
DX: E10.8 Type 1 diabetes mellitus with unspecified complications (principal); F31.9 Bipolar disorder, unspecified; F41.9 Anxiety disorder, unspecified; H54.61 Unqualified visual loss, right eye, normal vision left eye; I10 Essential (primary) hypertension; I25.10 Atherosclerotic heart disease of native coronary artery without angina pectoris; Z79.4 Long term (current) use of insulin; Z91.14 Patient's other noncompliance with medication regimen; Z94.4 Liver transplant status; E86.0 Dehydration; E78.5 Hyperlipidemia, unspecified
CPT/HCPCS: 36415; 71045; 80048; 80053; 81001; 82803; 82948; 83036; 85025; 93005; 96360; 96374; 97116; 97162; 97166; 97530; 99285; G0378; G8978; G8979; G8987; G8988; J1644; J1885; J7030; J7507

== ENCOUNTER 2018-06-16 12:31 | Emergency (ER) | payer MEDICARE, MEDICAID ==
[2018-06-16 12:31] VITALS: BMI 18.6
[2018-06-16 12:44] VITALS: TEMP 98.3
--- NOTE | 2018-06-16 14:56 | C.PDOC ---
History Of Present Illness 78 y/o female presents to the ED complaining of bilateral knee pain since waking up this morning. Denies any known trauma or injury. Also notes she was recently diagnosed with bilateral DVTs while in [place], however was not given any medications. Otherwise patient denies any chest pain, SOB, numbness, weakness, or other complaints. Time Seen by Provider: 06/16/18 13:01 Chief Complaint (Nursing): Lower Extremity Problem/Injury History Per: Patient History/Exam Limitations: no limitations Onset/Duration Of Symptoms: Hrs Current Symptoms Are (Timing): Still Present Past Medical History Reviewed: Historical Data, Nursing Documentation, Vital Signs Vital Signs: Last Vital Signs Temp 98.3 F 06/16/18 12:39 Pulse 90 06/16/18 12:39 Resp 20 06/16/18 12:39 BP 178/83 H 06/16/18 12:39 Pulse Ox 100 06/16/18 12:39 - Medical History PMH: Anxiety, Arthritis (knee, back), Bipolar Disorder, Bronchitis, CAD, Depression, Diabetes, Deep Vein Thrombosis, Fractures (L leg), Gastritis, HTN, Peripheral Edema, Pneumonia, Pneumothorax Denies: Chronic Kidney Disease, Sickle Cell Disease Comment Only: COPD (DENIES) Surgical History: (x 2) Denies: Tonsillectomy - [facility] Procedures (06/13/17) CLOSED ENDOSCOPIC BIOPSY OF LARGE INTESTINE (08/31/13) DRAINAGE OF RIGHT LOWER LOBE BRONCHUS, ENDO, DIAGN (08/03/15) DRAINAGE OF RIGHT MIDDLE LOBE BRONCHUS, ENDO, DIAGN (08/03/15) DRAINAGE OF SPINAL CANAL, PERCUTANEOUS APPROACH, DIAGNOSTIC (08/03/15) ESOPHAGOGASTRODUODENOSCOPY [EGD] W/CLOSED BIOPSY (08/31/13) EXCISION OF STOMACH, ENDO, DIAGN (12/04/17) GROUP PSYCHOTHERAPY (05/02/17) INDIVIDUAL PSYCHOTHERAPY, SUPPORTIVE (05/02/17) INSERT INTERCOSTAL CATH (03/15/14) INSERTION OF ENDOTRACHEAL AIRWAY INTO TRACHEA, VIA OPENING (08/03/15) INSERTION OF INFUSION DEV INTO SUP VENA CAVA, PERC APPROACH (10/17/17) INSERTION OF INTRALUM DEV INTO INF VENA CAVA, PERC APPROACH (06/29/17) INTRODUCTION OF SERUM/TOX/VACCINE INTO MUSCLE, PERC APPROACH (04/20/17) OTHER PLEURAL INCISION (03/15/14) REMOVAL OF FB NOS (05/25/13) RESPIRATORY VENTILATION, GREATER THAN 96 CONSECUTIVE HOURS (08/03/15) TRANSFUSE NONAUT PLATELETS IN PERIPH VEIN, PERC (08/03/15) Family History: States: Diabetes - Social History Hx Tobacco Use: No Hx Alcohol Use: No Hx Substance Use: No - Immunization History Hx Tetanus Toxoid Vaccination: Yes Hx Influenza Vaccination: Yes Hx Pneumococcal Vaccination: Yes Review Of Systems Except As Marked, All Systems Reviewed And Found Negative. Constitutional: Negative for: Fever, Chills Cardiovascular: Negative for: Chest Pain Respiratory: Negative for: Shortness of Breath Gastrointestinal: Negative for: Abdominal Pain Musculoskeletal: Positive for: Leg Pain (B/L Knee) Skin: Negative for: Rash, Lesions Neurological: Negative for: Weakness, Numbness, Incoordination Physical Exam - Physical Exam Appears: Non-toxic, No Acute Distress Skin: Warm, Dry Head: Atraumatic, Normacephalic Eye(s): bilateral: Normal Inspection, PERRL, EOMI Oral Mucosa: Moist Neck: Normal ROM Chest: Symmetrical Cardiovascular: Rhythm Regular Respiratory: Normal Breath Sounds, No Accessory Muscle Use Extremity: Tenderness (mild tenderness to B/L knees), No Calf Tenderness, No Swelling, Other (No erythema or skin changes) Pulses: Left Dorsalis Pedis: Normal, Right Dorsalis Pedis: Normal Neurological/Psych: Oriented x3, Normal Motor, Normal Sensation Gait: Steady ED Course And Treatment O2 Sat by Pulse Oximetry: 100 (on RA) Pulse Ox Interpretation: Normal Progress Note: Ordered x-rays and Doppler US. X-ray taken of B/L knees, showing arthritic and degenerative changes. Duplex confirmed Chronic DVT in the left popliteal vein. Discussed case with who sts patient is not on any treatment because she was not complaint and she had IVC filter placed by . requested patient to follow up in his office tomorrow. Disposition - Disposition Referrals: Westley Hall MD [Staff Provider] - Disposition: HOME/ ROUTINE Disposition Time: 15:52 Condition: STABLE Additional Instructions: Follow up with tomorrow. Return to ED if feel worse. Prescriptions: traMADol/Acetaminophen [Ultracet 325 MG-37.5 MG] 1 tab PO Q6 PRN #20 tab PRN Reason: Pain Instructions: Knee Pain (DC) Forms: [employer] (Guyanese) Print Language: GREENLANDIC - Clinical Impression Clinical Impression: Knee pain, bilateral - PA / FELT FINISHER / Resident Statement MD/DO has reviewed & agrees with the documentation as recorded. - Scribe Statement The provider has reviewed the documentation as recorded by the Scribe Swathi Mueller All medical record entries made by the Scribe were at my direction and personally dictated by me. I have reviewed the chart and agree that the record accurately reflects my personal performance of the history, physical exam, medical decision making, and the department course for this patient. I have also personally directed, reviewed, and agree with the discharge instructions and disposition.
--- NOTE | 2018-06-16 15:35 | RAD ---
Date of service: 06/16/2018 PROCEDURE: Bilateral Knee Radiographs, 3 views. HISTORY: pain, atraumatic COMPARISON: None available. FINDINGS: BONES: Right Knee: Osseous demineralization limits evaluation for acute fracture lines. Chronic appearing healed fracture deformity of the proximal fibula. No acute displaced fracture identified. Left Knee: Osseous demineralization limits evaluation for acute fracture lines. No acute displaced fracture identified. Small suprapatellar enthesophyte. JOINTS: Right Knee: Medial greater than lateral joint space narrowing. No dislocation. Left knee: Medial greater than lateral joint space narrowing. No dislocation. SOFT TISSUES: Right Knee: No evidence of radiopaque foreign body. Left Knee: No evidence of radiopaque foreign body. JOINT EFFUSION: Right Knee: No significant joint effusion identified. Left Knee: No significant joint effusion identified. OTHER FINDINGS: None. IMPRESSION: Osseous demineralization. Degenerative changes as above. Chronic appearing healed fracture deformity of the proximal right fibula.
[2018-06-16 16:13] VITALS: BP 166/90; PULSE 85; RESP 17
[2018-06-16 21:54] VITALS: O2SAT 100
--- NOTE | 2018-06-17 12:47 | VASCLAB ---
Date of service: 06/16/2018 PROCEDURE: Lower Extremity Venous Duplex Exam. HISTORY: ? h/o b/l DVT, not on meds, pain PRIORS: None. TECHNIQUE: Bilateral common femoral, femoral, popliteal and posterior tibial, peroneal and great saphenous veins were evaluated. Flow was assessed with color Doppler, compressibility, assessment of phasic flow and augmentation response. Report prepared by Fly Person, NADIR, RVT FINDINGS: RIGHT: 1. Common Femoral Vein: 1.1. Compressibility - Fully compressible: Thrombus - None : Flow - Phasic: Augmentation -Normal: Reflux - None. 2. Femoral Vein: 2.1. Compressibility - Fully compressible: Thrombus - None : Flow - Phasic: Augmentation -Normal: Reflux - None. 3. Popliteal Vein: 3.1. Compressibility - Fully compressible: Thrombus - None : Flow - Phasic: Augmentation -Normal: Reflux - Yes. 4. Posterior Tibial Vein: 4.1. Compressibility - Fully compressible: Thrombus - None: Flow - Phasic: Augmentation -Normal: Reflux - None. 5. Peroneal Vein: 5.1. Compressibility - Fully compressible: Thrombus - None: Flow - Phasic: Augmentation -Normal: Reflux - None. 6. Great Saphenous Vein: 6.1. Compressibility - Fully compressible: Thrombus - None: Flow - Phasic: Augmentation - Normal: Reflux - None. LEFT: 1. Common Femoral Vein: 1.1. Compressibility - Fully compressible: Thrombus - None: Flow - Phasic: Augmentation -Normal: Reflux - None. 2. Femoral Vein: 2.1. Compressibility - Fully compressible: Thrombus - None: Flow - Phasic: Augmentation -Normal: Reflux - None. 3. Popliteal Vein: 3.1. Compressibility - Partial: Thrombus - Chronic : Flow - Reduced : Augmentation -Reduced: Reflux - None. 4. Posterior Tibial Vein: 4.1. Compressibility - Fully compressible: Thrombus - None: Flow - Phasic: Augmentation -Normal: Reflux - None. 5. Peroneal Vein: 5.1. Compressibility - Fully compressible: Thrombus - None: Flow - Phasic: Augmentation -Normal: Reflux - None. 6. Great Saphenous Vein: 6.1. Compressibility - Fully compressible: Thrombus - None: Flow - Phasic: Augmentation - Normal: Reflux - None. OTHER FINDINGS: YESENIA Bains notified about the findings. Impression Right: No evidence of deep or superficial vein thrombosis of the right lower extremity. 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
== END 2018-06-16 16:13 | disposition home or self-care (01) ==
LOC: C.ER 12:31
DX: M25.562 Pain in left knee (principal); M25.561 Pain in right knee

== ENCOUNTER 2018-07-30 18:12 | Inpatient (IN) | payer MEDICARE, MEDICAID ==
[2018-07-30 18:13] VITALS: BMI 18.6
[2018-07-30] MEDS ORDERED: Dextrose 50% SYRINGE Inj (50 ml) IV STA (19:10)
[2018-07-30] MEDS ORDERED: Dextrose 50% SYRINGE Inj (50 ml) ONE (19:13)
--- NOTE | 2018-07-30 19:29 | C.PDOC ---
History Of Present Illness 78 year old female with PMHx of psych, schizophrenia and diabetes presents to the ED c/o " decreased appetite". Patient also reports feeling depressed, dizzy. Patient is a poor historian. While in the ED is was noted patient was hypo glycemic. Patient denies any specific complaints while at bedside. Time Seen by Provider: 07/30/18 18:59 Chief Complaint (Nursing): Weakness/Neurological Deficit History Per: Patient History/Exam Limitations: no limitations Onset/Duration Of Symptoms: Days Current Symptoms Are (Timing): Still Present Associated Symptoms Preceding Syncopal Episode: No Predromal Symptoms (Sudden Onset) Seizure Or Post-ictal Symptoms: None Fall Associated With With Symptoms: No Recent travel outside of the [place]: No Additional History Per: Patient Past Medical History Reviewed: Historical Data, Nursing Documentation, Vital Signs Vital Signs: Last Vital Signs Temp 98.9 F 07/30/18 18:35 Pulse 76 07/30/18 18:35 Resp 18 07/30/18 18:35 BP 101/66 07/30/18 18:35 Pulse Ox 95 07/30/18 18:35 Primary Care Provider: Westley Hall - Medical History PMH: Anxiety, Arthritis (knee, back), Bipolar Disorder, Bronchitis, CAD, Depression, Diabetes, Deep Vein Thrombosis, Fractures (L leg), Gastritis, HTN, Peripheral Edema, Pneumonia, Pneumothorax Denies: Chronic Kidney Disease, Sickle Cell Disease Comment Only: COPD (DENIES) Surgical History: (x 2) Denies: Tonsillectomy - [facility] Procedures (06/13/17) CLOSED ENDOSCOPIC BIOPSY OF LARGE INTESTINE (08/31/13) DRAINAGE OF RIGHT LOWER LOBE BRONCHUS, ENDO, DIAGN (08/03/15) DRAINAGE OF RIGHT MIDDLE LOBE BRONCHUS, ENDO, DIAGN (08/03/15) DRAINAGE OF SPINAL CANAL, PERCUTANEOUS APPROACH, DIAGNOSTIC (08/03/15) ESOPHAGOGASTRODUODENOSCOPY [EGD] W/CLOSED BIOPSY (08/31/13) EXCISION OF STOMACH, ENDO, DIAGN (12/04/17) GROUP PSYCHOTHERAPY (05/02/17) INDIVIDUAL PSYCHOTHERAPY, SUPPORTIVE (05/02/17) INSERT INTERCOSTAL CATH (03/15/14) INSERTION OF ENDOTRACHEAL AIRWAY INTO TRACHEA, VIA OPENING (08/03/15) INSERTION OF INFUSION DEV INTO SUP VENA CAVA, PERC APPROACH (10/17/17) INSERTION OF INTRALUM DEV INTO INF VENA CAVA, PERC APPROACH (06/29/17) INTRODUCTION OF SERUM/TOX/VACCINE INTO MUSCLE, PERC APPROACH (04/20/17) OTHER PLEURAL INCISION (03/15/14) REMOVAL OF FB NOS (05/25/13) RESPIRATORY VENTILATION, GREATER THAN 96 CONSECUTIVE HOURS (08/03/15) TRANSFUSE NONAUT PLATELETS IN PERIPH VEIN, PERC (08/03/15) Family History: States: Diabetes - Social History Hx Tobacco Use: No Hx Alcohol Use: No Hx Substance Use: No - Immunization History Hx Tetanus Toxoid Vaccination: Yes Hx Influenza Vaccination: Yes Hx Pneumococcal Vaccination: Yes Review Of Systems Constitutional: Positive for: Weakness, Malaise. Negative for: Fever, Chills Cardiovascular: Negative for: Chest Pain Respiratory: Negative for: Shortness of Breath Gastrointestinal: Negative for: Nausea, Vomiting, Abdominal Pain Neurological: Positive for: Dizziness. Negative for: Weakness, Numbness, Headache Physical Exam - Physical Exam Appears: Non-toxic, No Acute Distress Skin: Normal Color, Warm, Dry Head: Atraumatic, Normacephalic Eye(s): bilateral: Normal Inspection Oral Mucosa: Moist Neck: Normal ROM, Supple Chest: Symmetrical Cardiovascular: Rhythm Regular Respiratory: Normal Breath Sounds, No Rales, No Rhonchi, No Wheezing Gastrointestinal/Abdominal: Soft, No Tenderness, No Guarding, No Rebound Extremity: Normal ROM, No Tenderness, No Swelling Neurological/Psych: Oriented x3, Normal Speech, Normal Cognition Gait: Steady ED Course And Treatment - Laboratory Results Result Diagrams: 07/30/18 19:30 07/30/18 19:30 ECG: Interpreted By Me, Viewed By Me ECG Rhythm: Sinus Rhythm (arrhytmia) ECG Interpretation: No Acute Changes Rate From EC (BPM) O2 Sat by Pulse Oximetry: 95 (ON RA) Pulse Ox Interpretation: Normal Medical Decision Making Medical Decision Making: hypglycemic in er. on LA insulin ro othe rmatolbic cardiac infectious etiology poor historain baseline pysch. Plan: * EKG * Labs * CXR * UA hypoglycemic in er. on la insulin will obs on medicine dr christina carranza. Disposition - Disposition Disposition: HOSPITALIZED Disposition Time: 20:00 Condition: STABLE - Clinical Impression Clinical Impression: Dizziness, Hypoglycemia - Scribe Statement The provider has reviewed the documentation as recorded by the Scribe Bashir Ceja All medical record entries made by the Scribe were at my direction and personally dictated by me. I have reviewed the chart and agree that the record accurately reflects my personal performance of the history, physical exam, medical decision making, and the department course for this patient. I have also personally directed, reviewed, and agree with the discharge instructions and disposition. Decision To Admit - Pt Status Changed To: Hospital Disposition Of: Inpatient - Admit Certification Admit to Inpatient:: After my assessment, the patient will require hospitalization for at least two midnights. This is because of the severity of symptoms shown, intensity of services needed, and/or the medical risk in this patient being treated as an outpatient. - InPatient: Physician Admission Certification: I certify that this patient requires 2 or more midnights of care for the following reason:: will neeed psych eval after medical clearacne. - . Bed Request Type: Telemetry Admitting Physician: Westley Hall Patient Diagnosis: Dizziness, Hypoglycemia
[2018-07-30 19:37] LABS: BASO % 1.3 % (0.0-2.0); EOS # 0.2 K/uL (0.0-0.7); EOS % 4.6 % (0.0-4.0); HEMOGLOBIN 11.4 g/dL (11.0-16.0); LYMPH # 1.3 K/uL (1.0-4.3); LYMPH % 34.4 % (20.0-40.0); MEAN CELL VOLUME 87.1 fL (81.0-99.0); MEAN CORPUSCULAR HGB CONC 33.2 g/dL (33.0-37.0); MEAN PLATELET VOLUME 8.1 fL (7.2-11.7); MONO # 0.3 K/uL (0.0-0.8); MONO % 9.5 % (0.0-10.0); NEUT # 1.8 K/uL (1.8-7.0); NEUT % 50.2 % (50.0-75.0); RBC 3.95 Mil/uL (3.80-5.20); RED CELL DISTRIBUTION WIDTH 15.3 % (11.5-14.5); WHITE BLOOD COUNT 3.7 K/uL (4.8-10.8)
[2018-07-30 19:47] LABS: ACETAMINOPHEN < 10.0 ug/mL (10.0-30.0); SALICYLATE < 1.0 mg/dL 1
[2018-07-30 19:49] LABS: PARTIAL THROMBOPLASTIN TIME 28.6 SECONDS (21-34); PROTHROMBIN TIME 10.8 SECONDS (9.7-12.2)
[2018-07-30 19:52] LABS: ALB/GLOB RATIO 1.1 (1.0-2.1); ALBUMIN 4.4 g/dL (3.5-5.0); ALT/SGPT 44 U/L (9-52); AST/SGOT 59 U/L (14-36); BLOOD UREA NITROGEN 37 mg/dL (7-17); CALCIUM 10.1 mg/dl (8.6-10.4); GFR NON-AFRICAN AMERICAN 29; LIPASE 36 U/L (23-300)
[2018-07-30] MEDS: (Novolin R) Insulin Human Regular 100 units/ml vial SC SCH (22:24)
[2018-07-31] MEDS: (Novolin R) Insulin Human Regular 100 units/ml vial SC SCH ×3 (07:30→21:25)
[2018-07-31 13:27] LABS: SQUAMOUS EPITHIAL < 1 /hpf (0-5); URINE BILIRUBIN NEGATIVE (NEGATIVE); URINE BLOOD NEGATIVE (NEGATIVE); URINE CLARITY Clear (Clear); URINE COLOR Yellow (YELLOW); URINE GLUCOSE (UA) NORMAL (Normal); URINE LEUKOCYTE ESTERASE NEG Leu/uL (Negative); URINE PROTEIN NEGATIVE (NEGATIVE); URINE UROBILINOGEN NORMAL mg/dL (0.2-1.0)
[2018-07-31 13:33] LABS: BARBITURATES, UR NEGATIVE (NEGATIVE); BENZODIAZEPINES, UR NEGATIVE (NEGATIVE); OPIATES, UR NEGATIVE (NEGATIVE); PHENCYCLIDINE, UR NEGATIVE (NEGATIVE)
--- NOTE | 2018-07-31 15:04 | RAD ---
Date of service: 07/30/2018 HISTORY: Chest pain COMPARISON: Comparison made with chest radiograph dated 05/30/2018 TECHNIQUE: 1 view obtained. FINDINGS: LUNGS: Minor bibasilar atelectasis and or scarring right greater than left PLEURA: No significant pleural effusion identified, no pneumothorax apparent. CARDIOVASCULAR: Heart size upper limits of normal. Normal. Dense mitral valve calcification. Aortic atherosclerotic calcification present. OSSEOUS STRUCTURES: No significant abnormalities. VISUALIZED UPPER ABDOMEN: Normal. OTHER FINDINGS: None. IMPRESSION: Minor bibasilar atelectasis and or scarring right greater than left heart size upper limits
[2018-07-31] MEDS: (Lantus) Insulin Glargine, Recombinant SC SCH (21:39)
--- NOTE | 2018-08-01 06:06 | CP.PCM.HP ---
Present on Admission - Present on Admission Any Indicators Present on Admission: Yes History of DVT/PE: Yes History of Uncontrolled Diabetes: Yes Past Patient History - Infectious Disease Hx of Infectious Diseases: None - Past Medical History & Family History Past Medical History?: Yes - Past Social History Smoking Status: Never Smoked - CARDIAC Hx Hypertension: Yes Hx Peripheral Edema: Yes - PULMONARY Hx Bronchitis: Yes Hx Chronic Obstructive Pulmonary Disease (COPD): (DENIES) Hx Pneumonia: Yes - NEUROLOGICAL Hx Neurological Disorder: No - HEENT Hx HEENT Problems: Yes Hx Blind: Yes (Right eye blind) - RENAL Hx Chronic Kidney Disease: No - ENDOCRINE/METABOLIC Hx Endocrine Disorders: Yes Hx Diabetes Mellitus Type 2: Yes - HEMATOLOGICAL/ONCOLOGICAL Hx Sickle Cell Disease: No - INTEGUMENTARY Hx Dermatological Problems: No - MUSCULOSKELETAL/RHEUMATOLOGICAL Hx Arthritis: Yes (knee, back) Hx Fractures: Yes (L leg) - GASTROINTESTINAL Hx Gastritis: Yes - GENITOURINARY/GYNECOLOGICAL Hx Genitourinary Disorders: No - PSYCHIATRIC Hx Anxiety: Yes Hx Bipolar Disorder: Yes Hx Depression: Yes Hx Substance Use: No - SURGICAL HISTORY Hx Tonsillectomy: No - ANESTHESIA Hx Anesthesia: Yes Hx Anesthesia Reactions: No Hx Malignant Hyperthermia: No Meds Allergies/Adverse Reactions: Allergies Allergy/AdvReac Type Severity Reaction Status Date / Time No Known Allergies Allergy Verified 05/30/18 14:39 Results - Vital Signs Recent Vital Signs: Last Vital Signs Temp 98.5 F 07/31/18 23:00 Pulse 61 08/01/18 00:02 Resp 20 07/31/18 23:00 BP 102/66 07/31/18 23:00 Pulse Ox 96 07/31/18 23:00 - Labs Result Diagrams: 07/30/18 19:30 07/30/18 19:30 Labs: Laboratory Results - last 24 hr 07/30/18 07/30/18 07/31/18 19:09 21:00 06:21 POC Glucose (mg/dL) 157 H 141 H Urine Color Yellow Urine Clarity Clear Urine pH 6.0 Ur Specific [place] 1.015 Urine Protein Negative Urine Glucose (UA) Normal Urine Ketones Negative Urine Blood Negative Urine Nitrate Negative Urine Bilirubin Negative Urine Urobilinogen Normal Ur Leukocyte Esterase Neg Urine WBC (Auto) < 1 Urine RBC (Auto) < 1 Ur Squamous Epith Cells < 1 Urine Opiates Screen Urine Methadone Screen Ur Barbiturates Screen Ur Phencyclidine Scrn Ur Amphetamines Screen U Benzodiazepines Scrn U Oth Cocaine Metabols U Cannabinoids Screen 07/31/18 07/31/18 07/31/18 11:47 13:10 16:29 POC Glucose (mg/dL) 244 H > 500 H* Urine Color Urine Clarity Urine pH Ur Specific [place] Urine Protein Urine Glucose (UA) Urine Ketones Urine Blood Urine Nitrate Urine Bilirubin Urine Urobilinogen Ur Leukocyte Esterase Urine WBC (Auto) Urine RBC (Auto) Ur Squamous Epith Cells Urine Opiates Screen Negative Urine Methadone Screen Negative Ur Barbiturates Screen Negative Ur Phencyclidine Scrn Negative Ur Amphetamines Screen Negative U Benzodiazepines Scrn Negative U Oth Cocaine Metabols Negative U Cannabinoids Screen Negative 07/31/18 20:58 POC Glucose (mg/dL) 102 Urine Color Urine Clarity Urine pH Ur Specific [place] Urine Protein Urine Glucose (UA) Urine Ketones Urine Blood Urine Nitrate Urine Bilirubin Urine Urobilinogen Ur Leukocyte Esterase Urine WBC (Auto) Urine RBC (Auto) Ur Squamous Epith Cells Urine Opiates Screen Urine Methadone Screen Ur Barbiturates Screen Ur Phencyclidine Scrn Ur Amphetamines Screen U Benzodiazepines Scrn U Oth Cocaine Metabols U Cannabinoids Screen
[2018-08-01] MEDS: (Novolin R) Insulin Human Regular 100 units/ml vial SC SCH ×5 (07:31→21:07)
[2018-08-01 08:33] LABS: BASO % 0.7 % (0.0-2.0); EOS # 0.2 K/uL (0.0-0.7); EOS % 7.4 % (0.0-4.0); HEMOGLOBIN 10.6 g/dL (11.0-16.0); LYMPH # 1.3 K/uL (1.0-4.3); LYMPH % 43.2 % (20.0-40.0); MEAN CELL VOLUME 88.2 fL (81.0-99.0); MEAN CORPUSCULAR HEMOGLOBIN 29.5 pg (27.0-31.0); MEAN CORPUSCULAR HGB CONC 33.5 g/dL (33.0-37.0); MEAN PLATELET VOLUME 8.3 fL (7.2-11.7); MONO # 0.2 K/uL (0.0-0.8); MONO % 6.7 % (0.0-10.0); NEUT # 1.2 K/uL (1.8-7.0); NRBC % 0.1 % (0.0-2.0); RBC 3.6 Mil/uL (3.80-5.20); RED CELL DISTRIBUTION WIDTH 14.9 % (11.5-14.5); WHITE BLOOD COUNT 2.9 K/uL (4.8-10.8)
[2018-08-01 08:48] LABS: ALB/GLOB RATIO 1.1 (1.0-2.1); ALBUMIN 3.4 g/dL (3.5-5.0); CALCIUM 9.2 mg/dl (8.6-10.4)
--- NOTE | 2018-08-01 09:40 | CP.PCM.CON ---
History of Present Illness - History of Present Illness History of Present Illness: 78 F admitted with weakness and dizziness Check ECHO/Carotids Monitor Vitals Check THS Will follow - Medical History PMH: Anxiety, Arthritis (knee, back), Bipolar Disorder, Bronchitis, CAD, Depres ronni, Diabetes, Deep Vein Thrombosis, Fractures (L leg), Gastritis, HTN, Peripheral Edema, Pneumonia, Pneumothorax Denies: Chronic Kidney Disease, Sickle Cell Disease Comment Only: COPD (DENIES) Surgical History: (x 2) Denies: Tonsillectomy - [facility] (06/13/17) CLOSED ENDOSCOPIC BIOPSY OF LARGE INTESTINE (08/31/13) DRAINAGE OF RIGHT LOWER LOBE BRONCHUS, ENDO, DIAGN (08/03/15) DRAINAGE OF RIGHT MIDDLE LOBE BRONCHUS, ENDO, DIAGN (08/03/15) DRAINAGE OF SPINAL CANAL, PERCUTANEOUS APPROACH, DIAGNOSTIC (08/03/15) ESOPHAGOGASTRODUODENOSCOPY [EGD] W/CLOSED BIOPSY (08/31/13) EXCISION OF STOMACH, ENDO, DIAGN (12/04/17) GROUP PSYCHOTHERAPY (05/02/17) INDIVIDUAL PSYCHOTHERAPY, SUPPORTIVE (05/02/17) INSERT INTERCOSTAL CATH (03/15/14) INSERTION OF ENDOTRACHEAL AIRWAY INTO TRACHEA, VIA OPENING (08/03/15) INSERTION OF INFUSION DEV INTO SUP VENA CAVA, PERC APPROACH (10/17/17) INSERTION OF INTRALUM DEV INTO INF VENA CAVA, PERC APPROACH (06/29/17) INTRODUCTION OF SERUM/TOX/VACCINE INTO MUSCLE, PERC APPROACH (04/20/17) OTHER PLEURAL INCISION (03/15/14) REMOVAL OF FB NOS (05/25/13) RESPIRATORY VENTILATION, GREATER THAN 96 CONSECUTIVE HOURS (08/03/15) TRANSFUSE NONAUT PLATELETS IN PERIPH VEIN, PERC (08/03/15) Family History: States: Diabetes - Social History Hx Tobacco Use: No Hx Alcohol Use: No Hx Substance Use: No - Immunization History Hx Tetanus Toxoid Vaccination: Yes Hx Influenza Vaccination: Yes Hx Pneumococcal Vaccination: Yes Review Of Systems Constitutional: Positive for: Weakness, Malaise. Negative for: Fever, Chills Cardiovascular: Negative for: Chest Pain Respiratory: Negative for: Shortness of Breath Gastrointestinal: Negative for: Nausea, Vomiting, Abdominal Pain Neurological: Positive for: Dizziness. Negative for: Weakness, Numbness, Headache Physical Exam - Physical Exam Appears: Non-toxic, No Acute Distress Skin: Normal Color, Warm, Dry Head: Atraumatic, Normacephalic Eye(s): bilateral: Normal Inspection Oral Mucosa: Moist Neck: Normal ROM, Supple Chest: Symmetrical Cardiovascular: Rhythm Regular Respiratory: Normal Breath Sounds, No Rales, No Rhonchi, No Wheezing Gastrointestinal/Abdominal: Soft, No Tenderness, No Guarding, No Rebound Extremity: Normal ROM, No Tenderness, No Swelling Neurological/Psych: Oriented x3, Normal Speech, Normal Cognition Gait: Steady Past Patient History - Infectious Disease Hx of Infectious Diseases: None - Past Medical History & Family History Past Medical History?: Yes - Past Social History Smoking Status: Never Smoked - CARDIAC Hx Hypertension: Yes Hx Peripheral Edema: Yes - PULMONARY Hx Bronchitis: Yes Hx Chronic Obstructive Pulmonary Disease (COPD): (DENIES) Hx Pneumonia: Yes - NEUROLOGICAL Hx Neurological Disorder: No - HEENT Hx HEENT Problems: Yes Hx Blind: Yes (Right eye blind) - RENAL Hx Chronic Kidney Disease: No - ENDOCRINE/METABOLIC Hx Endocrine Disorders: Yes Hx Diabetes Mellitus Type 2: Yes - HEMATOLOGICAL/ONCOLOGICAL Hx Sickle Cell Disease: No - INTEGUMENTARY Hx Dermatological Problems: No - MUSCULOSKELETAL/RHEUMATOLOGICAL Hx Arthritis: Yes (knee, back) Hx Fractures: Yes (L leg) - GASTROINTESTINAL Hx Gastritis: Yes - GENITOURINARY/GYNECOLOGICAL Hx Genitourinary Disorders: No - PSYCHIATRIC Hx Anxiety: Yes Hx Bipolar Disorder: Yes Hx Depression: Yes Hx Substance Use: No - SURGICAL HISTORY Hx Tonsillectomy: No - ANESTHESIA Hx Anesthesia: Yes Hx Anesthesia Reactions: No Hx Malignant Hyperthermia: No Meds Allergies/Adverse Reactions: Allergies Allergy/AdvReac Type Severity Reaction Status Date / Time No Known Allergies Allergy Verified 05/30/18 14:39 - Medications Medications: Current Medications Clonidine HCl (Catapres) 0.1 mg PO BID [facility] Last Admin: 08/01/18 09:13 Dose: 0.1 mg Ergocalciferol (Drisdol 50,000 Intl Units Cap) 1 cap PO QWK [facility] Famotidine (Pepcid) 20 mg PO DAILY [facility] Last Admin: 08/01/18 09:13 Dose: 20 mg Heparin Sodium (Porcine) (Heparin) 5,000 units SC Q12 [facility] Last Admin: 08/01/18 09:13 Dose: 5,000 units Insulin Glargine (Lantus) 10 unit SC HS [facility] Last Admin: 07/31/18 21:39 Dose: 10 units Insulin Human Regular (Novolin R) 0 unit SC ACHS [facility]; Protocol Last Admin: 08/01/18 07:31 Dose: Not Given Lorazepam (Ativan) 0.5 mg PO DAILY PRN PRN Reason: Anxiety Last Admin: 07/30/18 22:24 Dose: 0.5 mg Tacrolimus (Prograf Cap) 1.5 mg PO Q12 [facility] Last Admin: 08/01/18 09:12 Dose: 1.5 mg Temazepam (Restoril) 30 mg PO HS PRN PRN Reason: Insomnia Last Admin: 08/01/18 00:15 Dose: 30 mg Results - Vital Signs Recent Vital Signs: Last Vital Signs Temp 98.5 F 07/31/18 23:00 Pulse 61 08/01/18 00:02 Resp 20 07/31/18 23:00 BP 102/66 07/31/18 23:00 Pulse Ox 96 07/31/18 23:00 - Labs Result Diagrams: 08/01/18 08:17 08/01/18 08:17 Labs: Laboratory Results - last 24 hr 07/30/18 07/31/18 07/31/18 19:09 11:47 13:10 WBC RBC Hgb Hct MCV MCH MCHC RDW Plt Count MPV Neut % (Auto) Lymph % (Auto) Bacon % (Auto) Eos % (Auto) Baso % (Auto) Neut # (Auto) Lymph # (Auto) [place] # (Auto) Eos # (Auto) Baso # (Auto) Sodium Potassium Chloride Carbon Dioxide Anion Gap BUN Creatinine Est GFR ( Amer) Est GFR (Non-Af Amer) POC Glucose (mg/dL) 244 H Random Glucose Calcium Total Bilirubin AST ALT Alkaline Phosphatase Total Protein Albumin Globulin Albumin/Globulin Ratio Urine Color Yellow Urine Clarity Clear Urine pH 6.0 Ur Specific [place] 1.015 Urine Protein Negative Urine Glucose (UA) Normal Urine Ketones Negative Urine Blood Negative Urine Nitrate Negative Urine Bilirubin Negative Urine Urobilinogen Normal Ur Leukocyte Esterase Neg Urine WBC (Auto) < 1 Urine RBC (Auto) < 1 Ur Squamous Epith Cells < 1 Urine Opiates Screen Negative Urine Methadone Screen Negative Ur Barbiturates Screen Negative Ur Phencyclidine Scrn Negative Ur Amphetamines Screen Negative U Benzodiazepines Scrn Negative U Oth Cocaine Metabols Negative U Cannabinoids Screen Negative 07/31/18 07/31/18 08/01/18 16:29 20:58 08:17 WBC 2.9 L RBC 3.60 L Hgb 10.6 L Hct 31.8 L MCV 88.2 MCH 29.5 MCHC 33.5 RDW 14.9 H Plt Count 87 L MPV 8.3 Neut % (Auto) 42.0 L Lymph % (Auto) 43.2 H Bacon % (Auto) 6.7 Eos % (Auto) 7.4 H Baso % (Auto) 0.7 Neut # (Auto) 1.2 L Lymph # (Auto) 1.3 Bacon # (Auto) 0.2 Eos # (Auto) 0.2 Baso # (Auto) 0.0 Sodium Potassium Chloride Carbon Dioxide Anion Gap BUN Creatinine Est GFR ( Amer) Est GFR (Non-Af Amer) POC Glucose (mg/dL) > 500 H* 102 Random Glucose Calcium Total Bilirubin AST ALT Alkaline Phosphatase Total Protein Albumin Globulin Albumin/Globulin Ratio Urine Color Urine Clarity Urine pH Ur Specific [place] Urine Protein Urine Glucose (UA) Urine Ketones Urine Blood Urine Nitrate Urine Bilirubin Urine Urobilinogen Ur Leukocyte Esterase Urine WBC (Auto) Urine RBC (Auto) Ur Squamous Epith Cells Urine Opiates Screen Urine Methadone Screen Ur Barbiturates Screen Ur Phencyclidine Scrn Ur Amphetamines Screen U Benzodiazepines Scrn U Oth Cocaine Metabols U Cannabinoids Screen 08/01/18 08:17 WBC RBC Hgb Hct MCV MCH MCHC RDW Plt Count MPV Neut % (Auto) Lymph % (Auto) [place] % (Auto) Eos % (Auto) Baso % (Auto) Neut # (Auto) Lymph # (Auto) [place] # (Auto) Eos # (Auto) Baso # (Auto) Sodium 138 Potassium 5.0 Chloride 103 Carbon Dioxide 27 Anion Gap 13 BUN 33 H Creatinine 1.5 H Est GFR ( Amer) 41 Est GFR (Non-Af Amer) 34 POC Glucose (mg/dL) Random Glucose 111 H D Calcium 9.2 Total Bilirubin 0.6 AST 74 H D ALT 49 Alkaline Phosphatase 168 H Total Protein 6.6 Albumin 3.4 L D Globulin 3.2 Albumin/Globulin Ratio 1.1 Urine Color Urine Clarity Urine pH Ur Specific [place] Urine Protein Urine Glucose (UA) Urine Ketones Urine Blood Urine Nitrate Urine Bilirubin Urine Urobilinogen Ur Leukocyte Esterase Urine WBC (Auto) Urine RBC (Auto) Ur Squamous Epith Cells Urine Opiates Screen Urine Methadone Screen Ur Barbiturates Screen Ur Phencyclidine Scrn Ur Amphetamines Screen U Benzodiazepines Scrn U Oth Cocaine Metabols U Cannabinoids Screen Assessment & Plan - Assessment and Plan (Free Text) Assessment: (1) Colitis Status: Acute Priority: High (2) Depression Status: Chronic Priority: Low (3) Diabetes mellitus Status: Chronic Priority: Low (4) Hypertension Status: Chronic Priority: Low Dizziness Check ECHO and Carotids Patient does not want stress test
--- NOTE | 2018-08-01 13:28 | CP.PCM.PN ---
Subjective - Date & Time of Evaluation Date of Evaluation: 08/01/18 Time of Evaluation: 07:00 - Subjective Subjective: dict Objective - Vital Signs/Intake and Output Vital Signs (last 24 hours): Temp Pulse Resp BP Pulse Ox 98.5 F 61 20 102/66 96 07/31/18 23:00 08/01/18 00:02 07/31/18 23:00 07/31/18 23:00 07/31/18 23:00 - Medications Medications: Current Medications Clonidine HCl (Catapres) 0.1 mg PO BID [facility] Last Admin: 08/01/18 09:13 Dose: 0.1 mg Ergocalciferol (Drisdol 50,000 Intl Units Cap) 1 cap PO QWK [facility] Famotidine (Pepcid) 20 mg PO DAILY [facility] Last Admin: 08/01/18 09:13 Dose: 20 mg Heparin Sodium (Porcine) (Heparin) 5,000 units SC Q12 [facility] Last Admin: 08/01/18 09:13 Dose: 5,000 units Insulin Glargine (Lantus) 10 unit SC HS [facility] Last Admin: 07/31/18 21:39 Dose: 10 units Insulin Human Regular (Novolin R) [address] [facility]; Protocol Last Admin: 08/01/18 12:43 Dose: 2 units Lorazepam (Ativan) 0.5 mg PO DAILY PRN PRN Reason: Anxiety Last Admin: 07/30/18 22:24 Dose: 0.5 mg Tacrolimus (Prograf Cap) 1.5 mg PO Q12 [facility] Last Admin: 08/01/18 09:12 Dose: 1.5 mg Temazepam (Restoril) 30 mg PO HS PRN PRN Reason: Insomnia Last Admin: 08/01/18 00:15 Dose: 30 mg - Labs Labs: 08/01/18 08:17 08/01/18 08:17 PT 10.8 SECONDS (9.7-12.2) 07/30/18 19:30 INR 1.0 07/30/18 19:30 APTT 28.6 SECONDS (21-34) 07/30/18 19:30
--- NOTE | 2018-08-01 17:35 | CP.PCM.PN ---
Subjective - Date & Time of Evaluation Date of Evaluation: 08/01/18 Time of Evaluation: 17:20 - Subjective Subjective: Patient seen and evaluated dizziness improved Denies chest pain and dyspnea Review Of Systems Constitutional: Positive for: Weakness, Malaise. Negative for: Fever, Chills Cardiovascular: Negative for: Chest Pain Respiratory: Negative for: Shortness of Breath Gastrointestinal: Negative for: Nausea, Vomiting, Abdominal Pain Neurological: Positive for: Dizziness. Negative for: Weakness, Numbness, Headache Physical Exam - Physical Exam Appears: Non-toxic, No Acute Distress Skin: Normal Color, Warm, Dry Head: Atraumatic, Normacephalic Eye(s): bilateral: Normal Inspection Oral Mucosa: Moist Neck: Normal ROM, Supple Chest: Symmetrical Cardiovascular: Rhythm Regular Respiratory: Normal Breath Sounds, No Rales, No Rhonchi, No Wheezing Gastrointestinal/Abdominal: Soft, No Tenderness, No Guarding, No Rebound Extremity: Normal ROM, No Tenderness, No Swelling Neurological/Psych: Oriented x3, Normal Speech, Normal Cognition Gait: Steady Objective - Vital Signs/Intake and Output Vital Signs (last 24 hours): Temp Pulse Resp BP Pulse Ox 98 F 64 18 131/76 99 08/01/18 16:00 08/01/18 16:52 08/01/18 16:00 08/01/18 16:00 08/01/18 16:00 - Medications Medications: Current Medications Clonidine HCl (Catapres) 0.1 mg PO BID [facility] Last Admin: 08/01/18 09:13 Dose: 0.1 mg Ergocalciferol (Drisdol 50,000 Intl Units Cap) 1 cap PO QWK [facility] Famotidine (Pepcid) 20 mg PO DAILY [facility] Last Admin: 08/01/18 09:13 Dose: 20 mg Heparin Sodium (Porcine) (Heparin) 5,000 units SC Q12 [facility] Last Admin: 08/01/18 09:13 Dose: 5,000 units Insulin Glargine (Lantus) 10 unit SC HS [facility] Last Admin: 07/31/18 21:39 Dose: 10 units Insulin Human Regular (Novolin R) 0 unit SC ACHS [facility]; Protocol Last Admin: 08/01/18 12:43 Dose: 2 units Lorazepam (Ativan) 0.5 mg PO DAILY PRN PRN Reason: Anxiety Last Admin: 07/30/18 22:24 Dose: 0.5 mg Tacrolimus (Prograf Cap) 1.5 mg PO Q12 [facility] Last Admin: 08/01/18 09:12 Dose: 1.5 mg Temazepam (Restoril) 30 mg PO HS PRN PRN Reason: Insomnia Last Admin: 08/01/18 00:15 Dose: 30 mg - Labs Labs: 08/01/18 08:17 08/01/18 08:17 PT 10.8 SECONDS (9.7-12.2) 07/30/18 19:30 INR 1.0 07/30/18 19:30 APTT 28.6 SECONDS (21-34) 07/30/18 19:30 Assessment and Plan - Assessment and Plan (Free Text) Assessment: (1) Colitis Status: Acute Priority: High (2) Depression Status: Chronic Priority: Low (3) Diabetes mellitus Status: Chronic Priority: Low (4) Hypertension Status: Chronic Priority: Low Dizziness Check ECHO and Carotids Patient does not want stress test
--- NOTE | 2018-08-01 19:51 | PN ---
DATE: 08/01/2018 SUBJECTIVE: The patient is feeling better. She did not have any episodes of hypoglycemia. However, her sugar went up to 500 last night. PHYSICAL EXAMINATION: VITAL SIGNS: Blood pressure 100/66, pulse 76, respiratory rate 20, and temperature 98.5. LUNGS: Clear. CARDIOVASCULAR: S1 and S2 regular. ABDOMEN: Soft and nontender. Bowel sounds are positive. CENTRAL NERVOUS SYSTEM: Alert and oriented x3.. . ASSESSMENT: 1. Hypoglycemia with episodes of hyperglycemia, labile diabetes. 2. Seizure. 3. Hypertension. PLAN: Admit. Continue current medication. Monitor patient. Westley Hall MD
[2018-08-01] MEDS: (Lantus) Insulin Glargine, Recombinant SC SCH (21:06)
--- NOTE | 2018-08-02 06:33 | HP ---
CHIEF COMPLAINT: Weakness, dizziness, low blood sugar. HISTORY OF PRESENT ILLNESS: This is a 78-year-old female, well known to me with a history of liver transplant due to chronic hepatitis B virus infection; diabetes, on insulin; hypertension; hyperlipidemia; and psychosis. She is compliant with her diet, medication and followup. On the day of admission, the patient had poor appetite and she did not eat enough. She continued to inject her insulin according her schedule, and she felt weak, dizzy, drowsy, sweating, nausea, vomiting, diaphoresis and weakness. The patient's blood sugar was found to be 30, and the patient came in and she was hospitalized. She currently has nausea, no vomiting. She has blood sugar went up after D50 and food. The patient denies any history of chest pain or palpitation. She has generalized weakness and tiredness. She denied any polyuria, polydipsia, or polyphagia. She denies any dysuria, hematuria, or pyuria. She denies any sneezing, itchy eyes, or itchy nose. The patient is delusional. She sometimes becomes forgetful. There is no history of joint pain or hip pain. She has tingling and numbness in the feet. She denies any history of rash. PAST MEDICAL HISTORY: Insulin-dependent diabetes, hypertension, anxiety, depression, and insomnia. The patient also has chronic hepatitis B with liver transplant. Diabetes, on insulin. Hyperlipidemia. CURRENT MEDICATIONS: The patient is on clonidine, Restoril, Prograf, Ativan, Novolin R, Lantus, Pepcid, vitamin D. SOCIAL HISTORY: Nonsmoker, non EtOH user. PAST SURGICAL HISTORY: Liver transplant about 16 years ago. PHYSICAL EXAMINATION: VITAL SIGNS: Blood pressure 101/66, pulse 76, respiratory rate 18, and temperature 98.9. SKIN: Senile turgor. No bruises. No purpura. No petechiae. HEENT: Head atraumatic and normocephalic. Negative pallor. Negative jaundice. Extraocular movements are intact. NECK: Supple. No JVD. LUNGS: Clear. No rales. No rhonchi. CARDIOVASCULAR: S1 and S2. Regular. No heave. No thrill. ABDOMEN: Soft and nontender. Bowel sounds are positive. EXTREMITIES: No clubbing, cyanosis or edema. CENTRAL NERVOUS SYSTEM: Awake, alert, and oriented x3. ASSESSMENT: 1. Hypoglycemia with altered mental status. 2. Chronic hepatitis B. 3. Hypertension. 4. Anxiety and depression. PLAN: Admit. Detailed orders are written. Seen and examined. Westley Hall MD
[2018-08-02] MEDS: (Novolin R) Insulin Human Regular 100 units/ml vial SC SCH ×4 (08:19→22:04)
[2018-08-02] MEDS ORDERED: Ergocalciferol 50,000 Intl Units Cap PO SCH (10:00)
--- NOTE | 2018-08-02 13:36 | CARD ---
APPROVED REPORT Date of service: 07/30/2018 EKG Measurement Heart [id number] <Conclusion> Sinus rhythm with marked sinus arrhythmia Septal infarct, age undetermined Abnormal ECG
--- NOTE | 2018-08-02 17:34 | CARD ---
APPROVED REPORT Date of service: 08/02/2018 EXAM: Two-dimensional and M-mode echocardiogram with Doppler and color Doppler. Other Information Quality : GoodRhythm : INDICATION Dizziness and Vertigo Peripheral Edema Chest Pain RISK FACTORS Hypertension Diabetes 2D DIMENSIONS IVSd1.1 (0.7-1.1cm)LVDd4.0 (3.9-5.9cm) PWd1.1 (0.7-1.1cm)LA Okuipc45 (18-58mL) LVDs2.5 (2.5-4.0cm)FS (%) 36.0 % LVEF (%)66.2 (>50%)LVEF (Jim's)67.57 % IVC0.00 cm M-Mode DIMENSIONS RVDd2.09 (2.1-3.2cm)Left Atrium (MM)3.97 (2.5-4.0cm) IVSd1.27 (0.7-1.1cm)Aortic Root2.73 (2.2-3.7cm) LVDd4.43 (4.0-5.6cm)Aortic Cusp Exc.1.77 (1.5-2.0cm) PWd1.16 (0.7-1.1cm)FS (%) 32 % LVDs2.99 (2.0-3.8cm)LVEF (%)61 (>50%) Mitral Valve MV E Grydxxpt86.1cm/sMV A Gniuxhsg239.5cm/sE/A ratio0.8 HZHG314.35 cm/s TDI Lateral E' Peak V5.02cm/sMedial E' Peak V4.21cm/sE/Lateral E'19.5 E/Medial E'23.3 Tricuspid Valve TR Peak Aflluhfk167cr/sTR Peak Gr.[id number] LEFT VENTRICLE The left ventricle is normal size. There is normal left ventricular wall thickness. The left ventricular function is normal. The left ventricular ejection fraction is within the normal range. There is normal LV segmental wall motion. Transmitral Doppler flow pattern is abnormal. RIGHT VENTRICLE The right ventricle is normal size. ATRIA The left atrium is borderline dilated. The right atrium size is normal. AORTIC VALVE The aortic valve is normal in structure. MITRAL VALVE Mitral regurgitation is mild. TRICUSPID VALVE There is moderate tricuspid regurgitation. <Conclusion> Normal LV systolic function. Diastolic dysfunction. Borderline dilated LA. Mild MR. Moderate TR.
[2018-08-02] MEDS: (Lantus) Insulin Glargine, Recombinant SC SCH (22:18)
--- NOTE | 2018-08-03 04:40 | CP.PCM.PN ---
Subjective - Date & Time of Evaluation Date of Evaluation: 08/02/18 Time of Evaluation: 08:40 - Subjective Subjective: d Objective - Vital Signs/Intake and Output Vital Signs (last 24 hours): Temp Pulse Resp BP Pulse Ox 98.1 F 57 L 20 127/69 97 08/02/18 23:20 08/03/18 03:10 08/02/18 23:20 08/02/18 23:20 08/02/18 23:20 - Medications Medications: Current Medications Clonidine HCl (Catapres) 0.1 mg PO BID [facility] Last Admin: 08/02/18 17:46 Dose: 0.1 mg Ergocalciferol (Drisdol 50,000 Intl Units Cap) 1 cap PO QWK [facility] Last Admin: 08/02/18 10:23 Dose: 1 cap Famotidine (Pepcid) 20 mg PO DAILY [facility] Last Admin: 08/02/18 10:22 Dose: 20 mg Heparin Sodium (Porcine) (Heparin) 5,000 units SC Q12 [facility] Last Admin: 08/02/18 22:18 Dose: 5,000 units Insulin Glargine (Lantus) 10 unit SC HS [facility] Last Admin: 08/02/18 22:18 Dose: 10 units Insulin Human Regular (Novolin R) 0 unit SC [facility]; Protocol Last Admin: 08/02/18 22:04 Dose: Not Given Lorazepam (Ativan) 0.5 mg PO DAILY PRN PRN Reason: Anxiety Last Admin: 08/01/18 21:07 Dose: 0.5 mg Tacrolimus (Prograf Cap) 1.5 mg PO Q12 [facility] Last Admin: 08/02/18 22:18 Dose: 1.5 mg Temazepam (Restoril) 30 mg PO HS PRN PRN Reason: Insomnia Last Admin: 08/02/18 23:27 Dose: 30 mg - Labs Labs: 08/01/18 08:17 08/01/18 08:17 PT 10.8 SECONDS (9.7-12.2) 07/30/18 19:30 INR 1.0 07/30/18 19:30 APTT 28.6 SECONDS (21-34) 07/30/18 19:30
--- NOTE | 2018-08-03 06:58 | PN ---
DATE: 08/02/2018 SUBJECTIVE: The patient is feeling better. She is less short of breath. She is more alert. She denies any nausea or vomiting. No chest pain. The patient's blood sugars are under better control. No dizziness or vertigo. PHYSICAL EXAMINATION: VITAL SIGNS: Blood pressure 127/69, pulse 55, respiratory rate 20, and temperature 98.1. LUNGS: Clear. CARDIOVASCULAR SYSTEM: S1, S2. Regular. ABDOMEN: Soft. ASSESSMENT: 1. Hypoglycemia, resolved. 2. Hypertension. 3. Anxiety and depression. PLAN: Continue current medication. Monitor the patient. Westley Hall MD
[2018-08-03] MEDS: (Novolin R) Insulin Human Regular 100 units/ml vial SC SCH ×4 (08:11→21:20)
[2018-08-03 08:27] LABS: HEMOGLOBIN 10.8 g/dL (11.0-16.0); MEAN CELL VOLUME 88.7 fL (81.0-99.0); MEAN CORPUSCULAR HEMOGLOBIN 29.3 pg (27.0-31.0); MEAN PLATELET VOLUME 8.6 fL (7.2-11.7); RBC 3.69 Mil/uL (3.80-5.20); RED CELL DISTRIBUTION WIDTH 15.3 % (11.5-14.5); WHITE BLOOD COUNT 2.8 K/uL (4.8-10.8)
[2018-08-03 08:40] LABS: CALCIUM 9.5 mg/dl (8.6-10.4)
--- NOTE | 2018-08-03 12:42 | VASCLAB ---
Date of service: 08/02/2018 PROCEDURE: Carotid Duplex Exam. HISTORY: Dizziness COMPARISON: None available. TECHNIQUE: Grayscale and duplex Doppler evaluation of the cervical carotid and vertebral arteries were performed. The common carotid, carotid bifurcations and cervical Internal Carotid Artery (ICA) and proximal External Carotid Artery (ECA) were evaluated. The vertebral arteries were evaluated for gross patency and flow direction. Report prepared by TAYA Centeno FINDINGS: RIGHT CAROTID ARTERIES: 1. Common Carotid Artery: No significant focal plaque formation of the right common carotid artery. Maximum Peak Systolic velocity: 82 cm/sec: End-diastolic velocity 9 cm/sec. 2. Carotid Bifurcation: plaque formation. Maximum Peak Systolic velocity: 37 cm/sec: End-diastolic velocity 0 cm/sec. 3. Internal Carotid Artery: Plaque description: 3.1. Proximal Segment: Peak systolic velocity 62 cm/sec: End-diastolic velocity 15 cm/sec - % stenosis 0-15% 3.2. Middle Segment: Peak systolic velocity 83 cm/sec: End-diastolic velocity 19 cm/sec - % stenosis 0-15% 3.3. Distal Segment: Peak systolic velocity 41 cm/sec: End-diastolic velocity 10 cm/sec - % stenosis 0-15% 4. External Carotid Artery: No significant focal plaque formation. Peak systolic velocity 50 cm/sec 5. ICA/CCA Ratio: 1.3 LEFT CAROTID ARTERIES: 1. Common Carotid Artery: No significant focal plaque formation of the left common carotid artery. Maximum Peak Systolic velocity: 79 cm/sec: End-diastolic velocity 11 cm/sec. 2. Carotid Bifurcation: plaque formation. Maximum Peak Systolic velocity: 53 cm/sec: End-diastolic velocity 8 cm/sec. 3. Internal Carotid Artery: Plaque description: 3.1. Proximal Segment: Peak systolic velocity 59 cm/sec: End-diastolic velocity 18 cm/sec - % stenosis 0-15% 3.2. Middle Segment: Peak systolic velocity 53 cm/sec: End-diastolic velocity 11 cm/sec - % stenosis 0-15% 3.3. Distal Segment: Peak systolic velocity 46 cm/sec: End-diastolic velocity 14 cm/sec - % stenosis 0-15% 4. External Carotid Artery: No significant focal plaque formation. Peak systolic velocity 44 cm/sec 5. ICA/CCA Ratio: 1.0 VERTEBRAL ARTERIES: 1. Right Vertebral Artery: The right vertebral artery flow direction is antegrade. 2. Left Vertebral Artery: The left vertebral artery flow direction is antegrade. OTHER FINDINGS: 1. Right Brachial Blood pressure: 100/60 mmHg. 2. Left Brachial Blood pressure: 100/60 mmHg. 3. No atherosclerotic calcification present IMPRESSION: RIGHT: Duplex scan does not suggest hemodynamically significant stenosis of the right extracranial carotid arteries. LEFT: Duplex scan does not suggest hemodynamically significant stenosis of the left extracranial carotid arteries.
--- NOTE | 2018-08-03 15:23 | CP.PCM.PN ---
<Wilson Patel - Last Filed: 08/03/18 18:08> Subjective - Date & Time of Evaluation Date of Evaluation: 08/03/18 Time of Evaluation: 13:35 - Subjective Subjective: PGY2 Cardiology Note for Dr. Montilla Patient seen and examined this afternoon at bedside. No acute events overnight. Patient reports that she lied about her dizziness, stating she only said that in order to get her daughter to take her to the hospital after she found her blood glucose to be >500. She apologized stated that she has never had any chest pain, lightheadedness or dizziness. She is feeling well and has no complaints today. Objective - Vital Signs/Intake and Output Vital Signs (last 24 hours): Temp Pulse Resp BP Pulse Ox 97.7 F 76 20 137/77 98 08/03/18 07:00 08/03/18 07:30 08/03/18 07:00 08/03/18 07:00 08/03/18 07:00 - Medications Medications: Current Medications Clonidine HCl (Catapres) 0.1 mg PO BID [facility] Last Admin: 08/03/18 09:29 Dose: 0.1 mg Ergocalciferol (Drisdol 50,000 Intl Units Cap) 1 cap PO QWK [facility] Last Admin: 08/02/18 10:23 Dose: 1 cap Famotidine (Pepcid) 20 mg PO DAILY [facility] Last Admin: 08/03/18 09:29 Dose: 20 mg Heparin Sodium (Porcine) (Heparin) 5,000 units SC Q12 [facility] Last Admin: 08/03/18 09:31 Dose: 5,000 units Insulin Glargine (Lantus) 10 unit SC HS [facility] Last Admin: 08/02/18 22:18 Dose: 10 units Insulin Human Regular (Novolin R) 0 unit SC ACHS [facility]; Protocol Last Admin: 08/03/18 12:19 Dose: 6 units Lorazepam (Ativan) 0.5 mg PO DAILY PRN PRN Reason: Anxiety Last Admin: 08/01/18 21:07 Dose: 0.5 mg Tacrolimus (Prograf Cap) 1.5 mg PO Q12 [facility] Last Admin: 08/03/18 09:29 Dose: 1.5 mg Temazepam (Restoril) 30 mg PO HS PRN PRN Reason: Insomnia Last Admin: 08/02/18 23:27 Dose: 30 mg - Labs Labs: 08/03/18 08:17 08/03/18 08:17 PT 10.8 SECONDS (9.7-12.2) 07/30/18 19:30 INR 1.0 07/30/18 19:30 APTT 28.6 SECONDS (21-34) 07/30/18 19:30 - Additional Findings Additional findings: Appears: Non-toxic, No Acute Distress Skin: Normal Color, Warm, Dry Head: Atraumatic, Normacephalic Eye(s): bilateral: Normal Inspection Oral Mucosa: Moist Neck: Normal ROM, Supple Chest: Symmetrical Cardiovascular: Rhythm Regular Respiratory: Normal Breath Sounds, No Rales, No Rhonchi, No Wheezing Gastrointestinal/Abdominal: Soft, No Tenderness, No Guarding, No Rebound Extremity: Normal ROM, No Tenderness, No Swelling Neurological/Psych: Oriented x3, Normal Speech, Normal Cognition Gait: Steady Assessment and Plan - Assessment and Plan (Free Text) Plan: (1) Colitis Status: Acute Priority: High (2) Depression Status: Chronic Priority: Low (3) Diabetes mellitus Status: Chronic Priority: Low (4) Hypertension Status: Chronic Priority: Low ECHO: EF ~66%, Diastolic dysfunction, borderline dilated LA, mild MR, moderate TR Carotid US 08/01/18 - unremarkable Patient does not want stress test Patient states that she never had dizziness, lightheadedness or chest pain and that she only lied about that to get her daughter to take her to the hospital for an elevated blood glucose of >500. Patient is stable for discharge from cardiology view point. Case discussed with Dr. Roldan Patel PGY2 <Rupert Montilla - Last Filed: 08/03/18 22:33> Objective - Vital Signs/Intake and Output Vital Signs (last 24 hours): Temp Pulse Resp BP Pulse Ox 97.8 F 58 L 18 116/71 100 08/03/18 15:20 08/03/18 16:30 08/03/18 15:20 08/03/18 15:20 08/03/18 15:20 - Medications Medications: Current Medications Clonidine HCl (Catapres) 0.1 mg PO BID [facility] Last Admin: 08/03/18 18:37 Dose: Not Given Ergocalciferol (Drisdol 50,000 Intl Units Cap) 1 cap PO QWK [facility] Last Admin: 08/02/18 10:23 Dose: 1 cap Famotidine (Pepcid) 20 mg PO DAILY [facility] Last Admin: 08/03/18 09:29 Dose: 20 mg Heparin Sodium (Porcine) (Heparin) 5,000 units SC Q12 [facility] Last Admin: 08/03/18 21:45 Dose: 5,000 units Insulin Glargine (Lantus) 10 unit SC HS [facility] Last Admin: 08/03/18 21:45 Dose: 10 units Insulin Human Regular (Novolin R) 0 unit SC ACHS [facility]; Protocol Last Admin: 08/03/18 21:20 Dose: Not Given Lorazepam (Ativan) 0.5 mg PO DAILY PRN PRN Reason: Anxiety Last Admin: 08/03/18 21:44 Dose: 0.5 mg Tacrolimus (Prograf Cap) 1.5 mg PO Q12 [facility] Last Admin: 08/03/18 22:10 Dose: 1.5 mg Temazepam (Restoril) 30 mg PO HS PRN PRN Reason: Insomnia Last Admin: 08/03/18 21:45 Dose: 30 mg - Labs Labs: 08/03/18 08:17 08/03/18 08:17 PT 10.8 SECONDS (9.7-12.2) 07/30/18 19:30 INR 1.0 07/30/18 19:30 APTT 28.6 SECONDS (21-34) 07/30/18 19:30 Assessment and Plan - Assessment and Plan (Free Text) Plan: Patient seen, examined and evaluated personally by me. plan of care d/w the medical laboratory technologist and as documented
--- NOTE | 2018-08-03 21:14 | CP.PCM.PN ---
Subjective - Date & Time of Evaluation Date of Evaluation: 08/03/18 Time of Evaluation: 20:20 - Subjective Subjective: dict Objective - Vital Signs/Intake and Output Vital Signs (last 24 hours): Temp Pulse Resp BP Pulse Ox 97.8 F 58 L 18 116/71 100 08/03/18 15:20 08/03/18 16:30 08/03/18 15:20 08/03/18 15:20 08/03/18 15:20 - Medications Medications: Current Medications Clonidine HCl (Catapres) 0.1 mg PO BID [facility] Last Admin: 08/03/18 18:37 Dose: Not Given Ergocalciferol (Drisdol 50,000 Intl Units Cap) 1 cap PO QWK [facility] Last Admin: 08/02/18 10:23 Dose: 1 cap Famotidine (Pepcid) 20 mg PO DAILY [facility] Last Admin: 08/03/18 09:29 Dose: 20 mg Heparin Sodium (Porcine) (Heparin) 5,000 units SC Q12 [facility] Last Admin: 08/03/18 09:31 Dose: 5,000 units Insulin Glargine (Lantus) 10 unit SC HS [facility] Last Admin: 08/02/18 22:18 Dose: 10 units Insulin Human Regular (Novolin R) 0 unit SC [facility]; Protocol Last Admin: 08/03/18 17:07 Dose: Not Given Lorazepam (Ativan) 0.5 mg PO DAILY PRN PRN Reason: Anxiety Last Admin: 08/01/18 21:07 Dose: 0.5 mg Tacrolimus (Prograf Cap) 1.5 mg PO Q12 [facility] Last Admin: 08/03/18 09:29 Dose: 1.5 mg Temazepam (Restoril) 30 mg PO HS PRN PRN Reason: Insomnia Last Admin: 08/02/18 23:27 Dose: 30 mg - Labs Labs: 08/03/18 08:17 08/03/18 08:17 PT 10.8 SECONDS (9.7-12.2) 07/30/18 19:30 INR 1.0 07/30/18 19:30 APTT 28.6 SECONDS (21-34) 07/30/18 19:30
[2018-08-03] MEDS: (Lantus) Insulin Glargine, Recombinant SC SCH (21:45)
--- NOTE | 2018-08-03 22:32 | CP.PCM.PN ---
Subjective - Date & Time of Evaluation Date of Evaluation: 08/02/18 Time of Evaluation: 17:50 - Subjective Subjective: Patient seen and evaluated dizziness improved Denies chest pain and dyspnea Review Of Systems Constitutional: Positive for: Weakness, Malaise. Negative for: Fever, Chills Cardiovascular: Negative for: Chest Pain Respiratory: Negative for: Shortness of Breath Gastrointestinal: Negative for: Nausea, Vomiting, Abdominal Pain Neurological: Positive for: Dizziness. Negative for: Weakness, Numbness, Headache Physical Exam - Physical Exam Appears: Non-toxic, No Acute Distress Skin: Normal Color, Warm, Dry Head: Atraumatic, Normacephalic Eye(s): bilateral: Normal Inspection Oral Mucosa: Moist Neck: Normal ROM, Supple Chest: Symmetrical Cardiovascular: Rhythm Regular Respiratory: Normal Breath Sounds, No Rales, No Rhonchi, No Wheezing Gastrointestinal/Abdominal: Soft, No Tenderness, No Guarding, No Rebound Extremity: Normal ROM, No Tenderness, No Swelling Neurological/Psych: Oriented x3, Normal Speech, Normal Cognition Gait: Steady Assessment and Plan - Assessment and Plan (Free Text) Assessment: (1) Colitis Status: Acute Priority: High (2) Depression Status: Chronic Priority: Low (3) Diabetes mellitus Status: Chronic Priority: Low (4) Hypertension Status: Chronic Priority: Low Dizziness Check ECHO and Carotids: Normal Patient does not want stress test Objective - Vital Signs/Intake and Output Vital Signs (last 24 hours): Temp Pulse Resp BP Pulse Ox 97.8 F 58 L 18 116/71 100 08/03/18 15:20 08/03/18 16:30 08/03/18 15:20 08/03/18 15:20 08/03/18 15:20 - Medications Medications: Current Medications Clonidine HCl (Catapres) 0.1 mg PO BID [facility] Last Admin: 08/03/18 18:37 Dose: Not Given Ergocalciferol (Drisdol 50,000 Intl Units Cap) 1 cap PO QWK [facility] Last Admin: 08/02/18 10:23 Dose: 1 cap Famotidine (Pepcid) 20 mg PO DAILY [facility] Last Admin: 08/03/18 09:29 Dose: 20 mg Heparin Sodium (Porcine) (Heparin) 5,000 units SC Q12 [facility] Last Admin: 08/03/18 21:45 Dose: 5,000 units Insulin Glargine (Lantus) 10 unit SC HS [facility] Last Admin: 08/03/18 21:45 Dose: 10 units Insulin Human Regular (Novolin R) 0 unit SC ACHS [facility]; Protocol Last Admin: 08/03/18 21:20 Dose: Not Given Lorazepam (Ativan) 0.5 mg PO DAILY PRN PRN Reason: Anxiety Last Admin: 08/03/18 21:44 Dose: 0.5 mg Tacrolimus (Prograf Cap) 1.5 mg PO Q12 [facility] Last Admin: 08/03/18 22:10 Dose: 1.5 mg Temazepam (Restoril) 30 mg PO HS PRN PRN Reason: Insomnia Last Admin: 08/03/18 21:45 Dose: 30 mg - Labs Labs: 08/03/18 08:17 08/03/18 08:17 PT 10.8 SECONDS (9.7-12.2) 07/30/18 19:30 INR 1.0 07/30/18 19:30 APTT 28.6 SECONDS (21-34) 07/30/18 19:30
[2018-08-04 01:16] VITALS: RESP 20
--- NOTE | 2018-08-04 04:39 | PN ---
DATE: 08/03/2018 SUBJECTIVE: The patient is feeling better, afebrile. No shortness of breath. No chest pain. PHYSICAL EXAMINATION: VITAL SIGNS: Blood pressure 116/71, pulse 58, respiratory rate 18, temperature 97.8. LUNGS: Clear. CARDIOVASCULAR SYSTEM: S1, S2 regular. ABDOMEN: Soft. ASSESSMENT: 1. Hypoglycemia. 2. Hypertension. 3. Anxiety and depression. 4. Diabetes, on insulin. PLAN: Psychiatry followup. Monitor the patient. The patient is for placement. Westley Hall MD
[2018-08-04] MEDS: (Novolin R) Insulin Human Regular 100 units/ml vial SC SCH ×3 (08:10→17:50)
[2018-08-04 16:25] VITALS: BP 131/70; PULSE 59; TEMP 98.6; O2SAT 98
--- NOTE | 2018-08-04 17:23 | CP.PCM.PN ---
Subjective - Date & Time of Evaluation Date of Evaluation: 08/04/18 Time of Evaluation: 11:35 - Subjective Subjective: Patient seen today , denies any complaints , oob ambulating the room No overnigh t events reported by RN BS stable Objective - Vital Signs/Intake and Output Vital Signs (last 24 hours): Temp Pulse Resp BP Pulse Ox 98.6 F 59 L 20 131/70 98 08/04/18 15:00 08/04/18 15:00 08/04/18 15:00 08/04/18 15:00 08/04/18 15:00 - Medications Medications: Current Medications Clonidine HCl (Catapres) 0.1 mg PO BID [facility] Last Admin: 08/04/18 09:31 Dose: 0.1 mg Ergocalciferol (Drisdol 50,000 Intl Units Cap) 1 cap PO QWK [facility] Last Admin: 08/02/18 10:23 Dose: 1 cap Famotidine (Pepcid) 20 mg PO DAILY [facility] Last Admin: 08/04/18 09:31 Dose: 20 mg Heparin Sodium (Porcine) (Heparin) 5,000 units SC Q12 [facility] Last Admin: 08/04/18 09:31 Dose: 5,000 units Insulin Glargine (Lantus) 10 unit SC HS [facility] Last Admin: 08/03/18 21:45 Dose: 10 units Insulin Human Regular (Novolin R) 0 unit SC ACHS [facility]; Protocol Last Admin: 08/04/18 11:13 Dose: Not Given Lorazepam (Ativan) 0.5 mg PO DAILY PRN PRN Reason: Anxiety Last Admin: 08/03/18 21:44 Dose: 0.5 mg Tacrolimus (Prograf Cap) 1.5 mg PO Q12 [facility] Last Admin: 08/04/18 09:31 Dose: 1.5 mg Temazepam (Restoril) 30 mg PO HS PRN PRN Reason: Insomnia Last Admin: 08/03/18 21:45 Dose: 30 mg - Labs Labs: 08/03/18 08:17 08/03/18 08:17 PT 10.8 SECONDS (9.7-12.2) 07/30/18 19:30 INR 1.0 07/30/18 19:30 APTT 28.6 SECONDS (21-34) 07/30/18 19:30 Assessment and Plan - Assessment and Plan (Free Text) Assessment: A/P 78 year old female with PMHx of psych, schizophrenia and diabetes presents to the ED c/o " decreased appetite". Patient also reports feeling depressed, dizzy. admitted with hypoglycemia and syncope BS- stable seen by cardiology, cleared for discharge ] seen by Dr. Graham cleared for discharge home D/w Dr. Hall, cleared for discharge home today and f/u with Dr. 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
--- NOTE | 2018-08-04 23:17 | CP.PCM.DIS ---
Provider - Provider Date of Admission: 07/30/18 20:04 Attending physician: Westley Hall MD Consults: 07/31/18 11:38 Cardiology Consult Routine Comment: Consulting Provider: Rupert Montilla Consulting Physician: Rupert Montilla Reason for Consult: chest pain 08/02/18 12:34 Psychiatry Consult Routine Comment: Consulting Provider: Jannie Cosby Consulting Physician: Jannie Cosby Reason for Consult: COMPETENCY Time Spent in preparation of Discharge (in minutes): 30 Hospital Course - Lab Results Lab Results: Most Recent Lab Values WBC 2.8 K/uL (4.8-10.8) L 08/03/18 08:17 RBC 3.69 Mil/uL (3.80-5.20) L 08/03/18 08:17 Hgb 10.8 g/dL (11.0-16.0) L 08/03/18 08:17 Hct 32.8 % (34.0-47.0) L 08/03/18 08:17 MCV 88.7 fL (81.0-99.0) 08/03/18 08:17 MCH 29.3 pg (27.0-31.0) 08/03/18 08:17 MCHC 33.0 g/dL (33.0-37.0) 08/03/18 08:17 RDW 15.3 % (11.5-14.5) H 08/03/18 08:17 Plt Count 91 K/uL (130-400) L 08/03/18 08:17 MPV 8.6 fL (7.2-11.7) 08/03/18 08:17 Neut % (Auto) 42.0 % (50.0-75.0) L 08/01/18 08:17 Lymph % (Auto) 43.2 % (20.0-40.0) H 08/01/18 08:17 [place] % (Auto) 6.7 % (0.0-10.0) 08/01/18 08:17 Eos % (Auto) 7.4 % (0.0-4.0) H 08/01/18 08:17 Baso % (Auto) 0.7 % (0.0-2.0) 08/01/18 08:17 Neut # (Auto) 1.2 K/uL (1.8-7.0) L 08/01/18 08:17 Lymph # (Auto) 1.3 K/uL (1.0-4.3) 08/01/18 08:17 [place] # (Auto) 0.2 K/uL (0.0-0.8) 08/01/18 08:17 Eos # (Auto) 0.2 K/uL (0.0-0.7) 08/01/18 08:17 Baso # (Auto) 0.0 K/uL (0.0-0.2) 08/01/18 08:17 Differential Comment 08/03/18 08:17 PT 10.8 SECONDS (9.7-12.2) 07/30/18 19:30 INR 1.0 07/30/18 19:30 APTT 28.6 SECONDS (21-34) 07/30/18 19:30 Sodium 138 mmol/L (132-148) 08/03/18 08:17 Potassium 4.8 mmol/L (3.6-5.2) 08/03/18 08:17 Chloride 103 mmol/L (98-107) 08/03/18 08:17 Carbon Dioxide 27 mmol/L (22-30) 08/03/18 08:17 Anion Gap 13 (10-20) 08/03/18 08:17 BUN 33 mg/dL (7-17) H 08/03/18 08:17 Creatinine 1.2 mg/dL (0.7-1.2) 08/03/18 08:17 Est GFR ( Amer) 53 08/03/18 08:17 Est GFR (Non-Af Amer) 44 08/03/18 08:17 POC Glucose (mg/dL) 282 mg/dL (65-110) H 08/04/18 16:00 Random Glucose 160 mg/dL (65-105) H D 08/03/18 08:17 Calcium 9.5 mg/dl (8.6-10.4) 08/03/18 08:17 Phosphorus 2.7 mg/dL (2.5-4.5) 07/30/18 19:30 Magnesium 1.9 mg/dL (1.6-2.3) 07/30/18 19:30 Total Bilirubin 0.6 mg/dL (0.2-1.3) 08/01/18 08:17 AST 74 U/L (14-36) H D 08/01/18 08:17 ALT 49 U/L (9-52) 08/01/18 08:17 Alkaline Phosphatase 168 U/L (38-126) H 08/01/18 08:17 Troponin I < 0.0120 ng/mL (0.00-0.120) 07/30/18 19:30 Total Protein 6.6 g/dL (6.3-8.3) 08/01/18 08:17 Albumin 3.4 g/dL (3.5-5.0) L D 08/01/18 08:17 Globulin 3.2 gm/dL (2.2-3.9) 08/01/18 08:17 Albumin/Globulin Ratio 1.1 (1.0-2.1) 08/01/18 08:17 Lipase 36 U/L (23-300) 07/30/18 19:30 Urine Color Yellow (YELLOW) 07/30/18 19:09 Urine Clarity Clear (Clear) 07/30/18 19:09 Urine pH 6.0 (5.0-8.0) 07/30/18 19:09 Ur Specific [place] 1.015 (1.003-1.030) 07/30/18 19:09 Urine Protein Negative mg/dL (NEGATIVE) 07/30/18 19:09 Urine Glucose (UA) Normal mg/dL (Normal) 07/30/18 19:09 Urine Ketones Negative mg/dL (NEGATIVE) 07/30/18 19:09 Urine Blood Negative (NEGATIVE) 07/30/18 19:09 Urine Nitrate Negative (NEGATIVE) 07/30/18 19: Urine Bilirubin Negative (NEGATIVE) 07/30/18 19:09 Urine Urobilinogen Normal mg/dL (0.2-1.0) 07/30/18 19:09 Ur Leukocyte Esterase Neg Zenaida/uL (Negative) 07/30/18 19:09 Urine WBC (Auto) < 1 /hpf (0-5) 07/30/18 19:09 Urine RBC (Auto) < 1 /hpf (0-3) 07/30/18 19:09 Ur Squamous Epith Cells < 1 /hpf (0-5) 07/30/18 19:09 Salicylates < 1.0 mg/dL 1 07/30/18 19:30 Urine Opiates Screen Negative (NEGATIVE) 07/31/18 13:10 Urine Methadone Screen Negative (NEGATIVE) 07/31/18 13:10 Acetaminophen < 10.0 ug/mL (10.0-30.0) L 07/30/18 19:30 Ur Barbiturates Screen Negative (NEGATIVE) 07/31/18 13:10 Ur Phencyclidine Scrn Negative (NEGATIVE) 07/31/18 13:10 Ur Amphetamines Screen Negative (NEGATIVE) 07/31/18 13:10 U Benzodiazepines Scrn Negative (NEGATIVE) 07/31/18 13:10 U Oth Cocaine Metabols Negative (NEGATIVE) 07/31/18 13:10 U Cannabinoids Screen Negative (NEGATIVE) 07/31/18 13:10 Alcohol, Quantitative < 10 mg/dl (0-10) 07/30/18 19:30 Discharge Plan - Follow Up Plan Condition: STABLE Disposition: HOME/ ROUTINE Instructions: Heart Healthy Diet, Diabetes Exchange Diet, Low Blood Sugar, Adult (DC), Diabetes Diet , Dizziness, Nonvertigo, (DC) Additional Instructions: Please f/u with Dr. Hall offic [place] 1 week Please continue medication as per med. rec. Referrals: Westley Hall MD [Staff Provider] -
--- NOTE | 2018-08-05 14:28 | DS ---
DISCHARGE DIAGNOSES: 1. Hypoglycemia, poorly controlled diabetes. 2. Hypotension. 3. Bipolar, depression. 4. Hepatitis B. 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 Hypoglycemia was corrected with D50 IV push and the patient was admitted to the floor, started on Accu-Cheks sliding scale, neuro watch. Initially, there was a concern of safety of her discharge as the patient was being worked up for placement in a prison but later on, the patient's family decided to take the responsibility and decided to take the patient home. CONDITION UPON DISCHARGE: Stable. The patient is a safe discharge. She is not a threat to herself or others. Westley Hall MD
== END 2018-08-04 18:35 | disposition home or self-care (01) | DRG 638 ==
LOC: C.ER 18:12 → C.6T 20:04
PROVIDERS: ADMIT Internal Medicine; ATTEND Internal Medicine
DX: E11.649 Type 2 diabetes mellitus with hypoglycemia without coma (principal); K52.9 Noninfective gastroenteritis and colitis, unspecified; B18.1 Chronic viral hepatitis B without delta-agent; Z94.4 Liver transplant status; R56.9 Unspecified convulsions; I10 Essential (primary) hypertension; I25.10 Atherosclerotic heart disease of native coronary artery without angina pectoris; F20.9 Schizophrenia, unspecified; F31.9 Bipolar disorder, unspecified; F41.9 Anxiety disorder, unspecified; E78.5 Hyperlipidemia, unspecified; H54.61 Unqualified visual loss, right eye, normal vision left eye; Z79.4 Long term (current) use of insulin; Z87.01 Personal history of pneumonia (recurrent)

== ENCOUNTER 2018-08-15 11:34 | Emergency (ER) | payer MEDICARE, MEDICAID ==
[2018-08-15 11:34] VITALS: BMI 18.6
[2018-08-15 11:55] VITALS: TEMP 99.1
--- NOTE | 2018-08-15 12:48 | C.PDOC ---
History Of Present Illness 78-year-old female presents to the ED for evaluation of bilateral neck pain since this morning. Patient denies trauma, states onset while sleeping. Patient states she feels stiff, limited movement. Patient denies associated weakness/numbness. Patient also complains of a rash beneath her bilateral breasts for several days, +itching. Patient was recently discharged for AMS, uncontrolled DM. B/L NECK PAIN SINCE THIS MORNING. NO TRAUMA, ONSET WHILE SLEEPING. PS FEELS STIFF, LIMITED MOVEMENT. DENIES ASSOC WEAK/ NUMB. ALSO CO RASH BENEATH B/L BREASTS X SEV DAYS. +ITCH. RECENT DC FOR AMS, UNCONTROLL DM EXAM NONTOXIC NECK LIMITED EXT/FLEX, LAT ROTATION DUE TO PAIN. B/L SPASM NO CSPINE TEND NEURO NO FOCAL DEF SKIN +TINEA CORPORUS BENEATH B/L BREAST REMAINDER NEG Time Seen by Provider: 08/15/18 12:22 Chief Complaint (Nursing): Upper Extremity Problem/Injury History Per: Patient History/Exam Limitations: no limitations Onset/Duration Of Symptoms: Hrs Current Symptoms Are (Timing): Still Present Additional History Per: Patient Past Medical History Reviewed: Historical Data, Nursing Documentation, Vital Signs Vital Signs: Last Vital Signs Temp 99.1 F 08/15/18 11:48 Pulse 67 08/15/18 11:48 Resp 18 08/15/18 11:48 BP 157/74 H 08/15/18 11:48 Pulse Ox Primary Care Provider: Westley Hall - Medical History PMH: Anxiety, Arthritis, Bipolar Disorder, Bronchitis, CAD, Depression, Diabetes, Deep Vein Thrombosis, Fractures (L leg), Gastritis, HTN, Peripheral Edema, Pneumonia, Pneumothorax Denies: Chronic Kidney Disease, Sickle Cell Disease Comment Only: COPD (DENIES) Surgical History: (x 2) Denies: Tonsillectomy - [facility] Procedures (06/13/17) CLOSED ENDOSCOPIC BIOPSY OF LARGE INTESTINE (08/31/13) DRAINAGE OF RIGHT LOWER LOBE BRONCHUS, ENDO, DIAGN (08/03/15) DRAINAGE OF RIGHT MIDDLE LOBE BRONCHUS, ENDO, DIAGN (08/03/15) DRAINAGE OF SPINAL CANAL, PERCUTANEOUS APPROACH, DIAGNOSTIC (08/03/15) ESOPHAGOGASTRODUODENOSCOPY [EGD] W/CLOSED BIOPSY (08/31/13) EXCISION OF STOMACH, ENDO, DIAGN (12/04/17) GROUP PSYCHOTHERAPY (05/02/17) INDIVIDUAL PSYCHOTHERAPY, SUPPORTIVE (05/02/17) INSERT INTERCOSTAL CATH (03/15/14) INSERTION OF ENDOTRACHEAL AIRWAY INTO TRACHEA, VIA OPENING (08/03/15) INSERTION OF INFUSION DEV INTO SUP VENA CAVA, PERC APPROACH (10/17/17) INSERTION OF INTRALUM DEV INTO INF VENA CAVA, PERC APPROACH (06/29/17) INTRODUCTION OF SERUM/TOX/VACCINE INTO MUSCLE, PERC APPROACH (04/20/17) OTHER PLEURAL INCISION (03/15/14) REMOVAL OF FB NOS (05/25/13) RESPIRATORY VENTILATION, GREATER THAN 96 CONSECUTIVE HOURS (08/03/15) TRANSFUSE NONAUT PLATELETS IN PERIPH VEIN, PERC (08/03/15) Family History: States: Diabetes - Social History Hx Tobacco Use: No Hx Alcohol Use: No Hx Substance Use: No - Immunization History Hx Tetanus Toxoid Vaccination: Yes Hx Influenza Vaccination: Yes Hx Pneumococcal Vaccination: Yes Review Of Systems Musculoskeletal: Positive for: Neck Pain (bilateral ) Neurological: Negative for: Weakness, Numbness Physical Exam - Physical Exam Appears: Non-toxic, No Acute Distress Skin: Normal Color, Warm, Dry, Other (tinea corporus beneath bilateral breasts ) Head: Atraumatic, Normacephalic Eye(s): bilateral: Normal Inspection Oral Mucosa: Moist Neck: No Midline Cervical Tenderness, No Paracervical Tenderness, Supple, Other (limited extension and flexion and lateral rotation secondary to pain. bilateral spasms ) Chest: Symmetrical, No Deformity, No Tenderness Cardiovascular: Rhythm Regular, No Murmur Respiratory: Normal Breath Sounds, No Rales, No Rhonchi, No Wheezing Extremity: Normal ROM, Capillary Refill (less than 2 seconds ) Neurological/Psych: Oriented x3, Normal Speech, Normal Cognition ED Course And Treatment Progress Note: Flexeril PO, Motrin PO, Tylenol PO, and Lidoderm TD given. Progress - Re-Evaluation Re-evaluation Note: 08/15/18 13:46 IMPROVED ROM APPEARS COMFORTABLE - Data Reviewed Data Reviewed: Old records Disposition Counseled Patient/Family Regarding: Diagnosis, Need For Followup, Rx Given - Disposition Referrals: YOUR,PMD [Other] Disposition: HOME/ ROUTINE Disposition Time: 13:46 Condition: IMPROVED Prescriptions: Acetaminophen [Tylenol Extra Strength] 2 tab PO Q6 #30 tablet Clotrimazole 1% Cream [Lotrimin 1% CREAM] 1 applic TOP BID #1 tube Cyclobenzaprine [Flexeril] 5 mg PO TID #12 tab Ibuprofen [Motrin] 600 mg PO Q6 #30 tab Lidocaine 5% [Lidoderm] 1 ea TD PRN PRN #10 patch PRN Reason: Pain, Moderate (4-7) Instructions: Torticollis (DC), Fungal Skin Rash (DC) Forms: [employer] (Slovak) - Clinical Impression Clinical Impression: Tinea corporis, Torticollis, acute - Scribe Statement The provider has reviewed the documentation as recorded by the Scribe (Yamilet Cabrera) Provider Attestation: All medical record entries made by the Scribe were at my direction and personally dictated by me. I have reviewed the chart and agree that the record accurately reflects my personal performance of the history, physical exam, medical decision making, and the department course for this patient. I have also personally directed, reviewed, and agree with the discharge instructions and disposition.
[2018-08-15] MEDS ORDERED: Lidocaine 5% Patch TD STA (12:51)
[2018-08-15] MEDS ORDERED: Lidocaine 5% Patch TD ONE (13:00)
[2018-08-15 13:59] VITALS: BP 155/83; PULSE 75; RESP 20; O2SAT 100
== END 2018-08-15 14:00 | disposition home or self-care (01) ==
LOC: C.ER 11:34
DX: B35.4 Tinea corporis (principal); M43.6 Torticollis; E11.9 Type 2 diabetes mellitus without complications; I10 Essential (primary) hypertension; I25.10 Atherosclerotic heart disease of native coronary artery without angina pectoris; Z86.718 Personal history of other venous thrombosis and embolism